=== PATIENT | female | born 1945 | race Caucasian/White ===

== ENCOUNTER 2016-02-17 13:16 | Emergency (ER) | payer OTHER ==
--- NOTE | 2016-02-17 13:55 | PDOC ---
History of Present Illness - History of Present Illness Initial Comments: 02/17/16 14:34 Patient is a 70 year old female with significant medical hx of asthma, ACS, Parkinsons, COPD, GERD, hypertension, and hyperlipidemia who is presenting to the ED s/p fall. Patient fell out of bed this morning secondary to dizziness. She reports that she is dizzy often; she characterizes her dizziness as if the room is spinning. The patient is also complains of lower back pain. Patient is a poor historian. PCP: Dr. Monica Jimenez <Kassidy Lozoya - Last Filed: 02/17/16 18:59> <Mauricio Agee - Last Filed: 02/17/16 19:04> - General Chief Complaint: Injury Stated Complaint: FALL Past History <Kassidy Lozoya - Last Filed: 02/17/16 18:59> - Past Medical History Anemia: Yes Asthma: Yes Cancer: No Cardiac Disorders: (hx of chest pain) CVA: No COPD: No CHF: No Dementia: No Diabetes: No GI Disorders: Yes (GERD) Disorders: Yes (incontinence) HTN: Yes Hypercholesterolemia: Yes Liver Disease: No Psychiatric Problems: Yes (BiPolar) Suicide Attempt (Hx): No Seizures: Yes Thyroid Disease: Yes (HYPO.) - Surgical History Abdominal Surgery: No Appendectomy: No Cardiac Surgery: No Cholecystectomy: No Lung Surgery: No Neurologic Surgery: No Orthopedic Surgery: No - Immunization History Td Vaccination: (unknown) Immunization Up to Date: No - Psycho/Social/Smoking Cessation Hx Anxiety: No Suicidal Ideation: No Smoking Status: No Smoking History: Unknown if ever smoked Years of Tobacco Use: 0 Have you smoked in the past 12 months: No Number of Cigarettes Smoked Daily: 0 Cigars Per Day: 0 Hx Alcohol Use: No Drug/Substance Use Hx: No Substance Use Type: None Hx Substance Use Treatment: No <Mauricio Agee - Last Filed: 02/17/16 19:04> - Past Medical History Allergies/Adverse Reactions: Allergies Allergy/AdvReac Type Severity Reaction Status Date / Time morphine Allergy Unknown Verified 01/28/16 13:00 Penicillins Allergy Unknown Verified 01/28/16 13:00 chocolate Allergy Unknown Uncoded 01/28/16 13:00 Home Medications: Ambulatory Orders Alendronate Sodium [Binosto] 70 mg PO MO 10/26/15 Aripiprazole [Abilify] 5 mg PO DAILY 10/26/15 Aspirin [Ecotrin] 81 mg PO DAILY 10/26/15 Atorvastatin Ca [Lipitor] 20 mg PO HS 10/26/15 Budesonide [Pulmicort Flexhaler] 180 mcg IH BID 10/26/15 Budesonide/Formeterol Fumarate [SYMBICORT 160/4.5mcg -] 1 inh PO BID 10/26/15 Carbidopa/Levodopa 25/250 [Sinemet 25/250 -] 1 each PO TID 10/26/15 Clopidogrel Bisulfate [Clopidogrel] 75 mg PO DAILY 10/26/15 Levothyroxine [Synthroid -] 25 mcg PO DAILY 10/26/15 Metoprolol Succinate [Toprol XL -] 25 mg PO DAILY 10/26/15 Montelukast Na [Singulair -] 10 mg PO HS 10/26/15 Solifenacin Succinate [Vesicare -] 10 mg PO DAILY 10/26/15 Gemfibrozil 600 mg PO BID 12/31/15 Loratadine [Claritin] 10 mg PO DAILY 12/31/15 Lorazepam [Ativan] 0.25 mg PO BID 12/31/15 Meclizine HCl 12.5 mg PO BID 12/31/15 Olanzapine [Zyprexa] 5 mg PO HS 12/31/15 Omeprazole 20 mg PO DAILY 12/31/15 Phenylephrine HCl/Acetaminophn [Mapap Sinus Caplet] 1 each PO BID 12/31/15 Risperidone [Risperdal] 8 mg PO HS 12/31/15 Pantoprazole Sodium [Protonix -] 20 mg PO DAILY 01/21/16 Albuterol Sulfate Inhaler - [Ventolin HFA Inhaler -] 2 inh PO Q4H 01/28/16 Citalopram Hydrobromide [Citalopram HBr] 10 mg PO DAILY 01/28/16 Lidocaine 5% Patch [Lidoderm -] 1 patch TP DAILY 01/28/16 Risperidone [Risperdal -] 2 mg PO AM 01/28/16 Review of Systems - Review of Systems Comments:: 02/17/16 14:49 CONSTITUTIONAL: Absent: fever, chills, diaphoresis, generalized weakness, malaise, loss of appetite HEENT: Absent: rhinorrhea, nasal congestion, throat pain, throat swelling, difficulty swallowing, mouth swelling, ear pain, eye pain, visual changes CARDIOVASCULAR: Absent: chest pain, syncope, palpitations, irregular heart rate, lightheadedness , peripheral edema RESPIRATORY: Absent: cough, shortness of breath, dyspnea with exertion, orthopnea, wheezing, stridor, hemoptysis GASTROINTESTINAL: Absent: abdominal pain, abdominal distension, nausea, vomiting, diarrhea, constipation, melena, hematochezia GENITOURINARY: Absent: dysuria, frequency, urgency, hesitancy, hematuria, flank pain, genital pain MUSCULOSKELETAL: Present: lower back pain Absent: myalgia, arthralgia, joint swelling SKIN: Absent: rash, itching, pallor HEMATOLOGIC/IMMUNOLOGIC: Absent: easy bleeding, easy bruising, lymphadenopathy, frequent infections ENDOCRINE: Absent: unexplained weight gain, unexplained weight loss, heat intolerance, cold intolerance NEUROLOGIC: Present: dizziness Absent: headache, focal weakness or paresthesia, unsteady gait, seizure, mental status changes, bladder or bowel incontinence. PSYCHIATRIC: Absent: anxiety, depression, suicidal or homicidal ideation, hallucinations <Kassidy Lozoya - Last Filed: 02/17/16 18:59> *Physical Exam - Vital Signs Last Vital Signs Temp Pulse Resp BP Pulse Ox 98.6 F 58 L 18 126/52 98 02/17/16 13:53 02/17/16 13:53 02/17/16 13:53 02/17/16 13:53 02/17/16 13:53 - Physical Exam Comments: 02/17/16 14:50 GENERAL: Well developed, well nourished. Awake and alert. No acute distress. HEENT: Normocephalic, atraumatic. PERRLA, EOMI. No conjunctival pallor. Sclera are non- icteric. Moist mucous membranes. Oropharynx is clear. NECK: Supple. Full ROM. No JVD. Carotid pulses 2+ and symmetric, without bruits. No thyromegaly. No lymphadenopathy. CARDIOVASCULAR: Regular rate and rhythm. No murmurs, rubs, or gallops. Distal pulses are 2+ and symmetric. PULMONARY: No evidence of respiratory distress. Lungs clear to auscultation bilaterally. No wheezing, rales or rhonchi. ABDOMINAL: Soft. Non-tender. Non-distended. No rebound or guarding. No organomegaly. Normoactive bowel sounds. MUSCULOSKELETAL: Lumbar tenderness. Normal range of motion at all joints. No bony deformities. No CVA tenderness. EXTREMITIES: No cyanosis. No clubbing. No edema. No calf tenderness. SKIN: Warm and dry. Normal capillary refill. No rashes. No jaundice. NEUROLOGICAL: Alert, awake, appropriate. No nystagmus. Cranial nerves 2-12 intact. Normal speech. Gait is normal without ataxia. PSYCHIATRIC: Cooperative. Good eye contact. Appropriate mood and affect. <Kassidy Lozoya - Last Filed: 02/17/16 18:59> ED Treatment Course - LABORATORY CBC & Chemistry Diagram: 02/17/16 15:00 02/17/16 15:00 - RADIOLOGY Radiograph Interpretation: 02/17/16 19:00 Jack Spinner: ([email or web address]) Begin of Report Content Referring Physician: Mauricio Agee Patient Name: Stoney Rodriguez THIS IS A PRELIMINARY REPORT FROM [facility]. EXAM: LUMBAR SPINE CT W/O CONTRAST DATE OF SERVICE: 2016-02-17 17:22:10.0 IMAGES: 292 INDICATION: Fall. Back pain. COMPARISON: None Mild rightward curvature of the lumbar spine. No acute lumbar vertebral compression fracture seen. Mild facet enlargement at L4-5 and L5-S1. No acute facet fracture or malalignment. Transverse and spinous processes are intact. A broad disc protrusion at L4-5 superimposed on facet and ligamentous enlargement producing moderate central spinal stenosis. Mild disc bulging at T12-L1 and L1-2. THIS DOCUMENT HAS BEEN ELECTRONICALLY SIGNED Wanda Palmer MD 02/17/2016 17:52 EST M.D. Please call [facility] [phone] ([phone]) with questions. End of Report Content Jack Spinner: ([email or web address]) Begin of Report Content Referring Physician: Mauricio Agee Patient Name: Stoney Rodriguez THIS IS A PRELIMINARY REPORT FROM [facility]. EXAM: HEAD CT WITHOUT CONTRAST DATE OF SERVICE: 2016-02-17 17:19:24.0 IMAGES: 66 INDICATION: Dizziness. Fell out of bed. COMPARISON: None FINDINGS: No acute skull fracture, intracranial hemorrhage or parenchymal edema demonstrated. There is no acute cortical infarction, intracranial mass, hydrocephalus or abnormal extraaxial collection. Air-fluid level present in the left maxillary sinus in addition to mucosal thickening and mild sinus wall thickening which may represent acute superimposed long-standing chronic sinusitis. If the patient has significant trauma to the left face, acute fracture not excluded. Recommend clinical correlation. If indicated, dedicated facial bone CT can be performed. THIS DOCUMENT HAS BEEN ELECTRONICALLY SIGNED Wanda Palmer MD 02/17/2016 17:49 EST [email or web address]. Please call [facility] [phone] ([phone]) with questions. End of Report Content <Kassidy Lozoya - Last Filed: 02/17/16 18:59> - LABORATORY CBC & Chemistry Diagram: 02/17/16 15:00 02/17/16 15:00 <Mauricio Agee - Last Filed: 02/17/16 19:04> *DC/Admit/Observation/Transfer - Attestations Scribe Attestion: 02/17/16 14:51 Documentation prepared by Kassidy Lozoya, acting as medical claims processor for Mauricio Agee MD. <Kassidy Lozoya - Last Filed: 02/17/16 18:59> - Discharge Dispostion Admit: No <Mauricio Agee - Last Filed: 02/17/16 19:04> Diagnosis at time of Disposition: Dizziness, Spinal stenosis, Chronic sinusitis - Discharge Dispostion Disposition: HOME Condition at time of disposition: Improved - Referrals Referrals: Monica Jimenez MD [Primary Care Provider] -
[2016-02-17 13:56] VITALS: TEMP 98.6; BMI 34.2
[2016-02-17] MEDS ORDERED: MECLIZINE HCL 25 MG TABLET (FP) PO ONE (14:00)
[2016-02-17] MEDS ORDERED: MECLIZINE HCL 25 MG TABLET (FP) ONE (14:41)
[2016-02-17 15:21] LABS: MCH 30.5 pg (25.7-33.7); MCHC 32.2 g/dl (32.0-36.0); MEAN CELL VOLUME 94.8 fl (80-96); MEAN PLT VOLUME 7.9 fl (7.5-11.1); PLATELET COUNT 275 K/MM3 (134-434); RDW 13.3 % (11.6-15.6); WHITE BLOOD COUNT 6.9 K/mm3 (4.0-10.0)
[2016-02-17 15:46] LABS: ALBUMIN 3.7 g/dl (3.4-5.0); ANION GAP 8 (8-16); BILIRUBIN,TOTAL 0.5 mg/dL (0.2-1.0); CALCIUM 8.7 mg/dL (8.5-10.1); CO2 24 mmol/L (21-32); CREATININE 0.8 mg/dL (0.55-1.02); GLUCOSE,RANDOM 99 mg/dL (74-106); SGPT/ALT 8 U/L (12-78); TOT PROT 6.3 g/dl (6.4-8.2)
[2016-02-17 15:47] LABS: ALK PHOS 98 U/L (45-117)
[2016-02-17 15:51] LABS: SGOT/AST 11 U/L (15-37)
[2016-02-17 16:26] LABS: PLATELET ESTIMATE ADEQUATE (NORMAL)
[2016-02-17 19:40] VITALS: BP 159/74; PULSE 61
--- NOTE | 2016-02-17 23:54 | EKG ---
Test Reason : Blood Pressure : / mmHG Vent. Rate : 051 BPM Atrial Rate : 051 BPM P-R Int : 212 ms QRS Dur : 094 ms QT Int : 508 ms P-R-T Axes : 037 027 013 degrees QTc Int : 468 ms SINUS BRADYCARDIA WITH 1ST DEGREE A-V BLOCK SEPTAL INFARCT (CITED ON OR BEFORE 28-JAN-2016) ABNORMAL ECG WHEN COMPARED WITH ECG OF 28-JAN-2016 13:06, QUESTIONABLE CHANGE IN INITIAL FORCES OF ANTEROSEPTAL LEADS NONSPECIFIC T WAVE ABNORMALITY NOW EVIDENT IN INFERIOR LEADS Confirmed by SKYLER LAGUERRE MD ([id number]) on 02/17/2016 11:53:55 PM Referred By: Confirmed By:SKYLER LAGUERRE MD
== END 2016-02-17 19:43 ==
LOC: JER 13:16
DX: R42 Dizziness and giddiness (principal); M48.00 Spinal stenosis, site unspecified; J32.8 Other chronic sinusitis; I25.10 Atherosclerotic heart disease of native coronary artery without angina pectoris; I10 Essential (primary) hypertension; E78.00 Pure hypercholesterolemia, unspecified; J45.909 Unspecified asthma, uncomplicated; G30.8 Other Alzheimer's disease; F02.80 Dementia in other diseases classified elsewhere, unspecified severity, without behavioral disturbance, psychotic disturbance, mood disturbance, and anxiety; J44.9 Chronic obstructive pulmonary disease, unspecified; W06.XXXA Fall from bed, initial encounter; Y93.89 Activity, other specified; Y92.122 Bedroom in nursing home as the place of occurrence of the external cause
CPT/HCPCS: 36415; 70450-TC; 72131-TC; 80053; 85025; 93005; 93010; 99282-25

== ENCOUNTER 2016-04-19 09:38 | Emergency (ER) | payer OTHER ==
[2016-04-19 09:55] VITALS: PULSE 53; TEMP 97.3; BMI 31.4
--- NOTE | 2016-04-19 10:11 | PDOC ---
History of Present Illness - General History Source: Patient, Old Records Exam Limitations: No Limitations - History of Present Illness Initial Comments: 04/19/16 10:57 The patient is a 71 year old female with significant past medical history of hypertension, hyperlipidemia, bipolar disorder, Parkinson's, who presents to the ED complaining of two days of generalized buttock and back pain. She states she fell from bed 2 days ago while getting dressed and landed on her buttocks at the onset of her pain. No head trauma or LOC. Since then she has been experiencing persistent pain diffusely, worse with positional changes, worse with urination and defecation. The patient also endorses nausea and cough. No fever or chills. No numbness, tingling or focal weakness. Patient is a poor historian and provides limited history. The patient has been seen in this ED multiple times recently for falls. She had an unremarkable CT of the spine during her last visit 02/17/16. <Chayo Carcamo - Last Filed: 04/19/16 11:52> - General History Source: Patient, Old Records Exam Limitations: No Limitations <Rosa Morrell - Last Filed: 04/19/16 12:20> - General Chief Complaint: Pain Stated Complaint: FALL Time Seen by Provider: 04/19/16 10:07 Past History <Chayo Carcamo - Last Filed: 04/19/16 11:52> - Past Medical History Anemia: Yes Asthma: Yes Cancer: No Cardiac Disorders: (hx of chest pain) CVA: No COPD: No CHF: No Dementia: No Diabetes: No GI Disorders: Yes (GERD) Disorders: Yes (incontinence) HTN: Yes Hypercholesterolemia: Yes Liver Disease: No Psychiatric Problems: Yes (BiPolar) Suicide Attempt (Hx): No Seizures: Yes Thyroid Disease: Yes (HYPO.) - Surgical History Abdominal Surgery: No Appendectomy: No Cardiac Surgery: No Cholecystectomy: No Lung Surgery: No Neurologic Surgery: No Orthopedic Surgery: No - Immunization History Td Vaccination: (unknown) Immunization Up to Date: No - Psycho/Social/Smoking Cessation Hx Anxiety: No Suicidal Ideation: No Smoking Status: No Smoking History: Unknown if ever smoked Years of Tobacco Use: 0 Have you smoked in the past 12 months: No Number of Cigarettes Smoked Daily: 0 Cigars Per Day: 0 Information on smoking cessation initiated: No Hx Alcohol Use: No Drug/Substance Use Hx: No Substance Use Type: None Hx Substance Use Treatment: No <Rosa Morrell - Last Filed: 04/19/16 12:20> - Past Medical History Allergies/Adverse Reactions: Allergies Allergy/AdvReac Type Severity Reaction Status Date / Time morphine Allergy Unknown Verified 04/19/16 09:55 Penicillins Allergy Unknown Verified 04/19/16 09:55 chocolate Allergy Unknown Uncoded 04/19/16 09:55 Home Medications: Ambulatory Orders Albuterol Sulfate [Proair Respiclick] 2 puff IH BID 04/19/16 Alendronate Na [Fosamax] 70 mg PO Q7D 04/19/16 Aripiprazole [Abilify -] 5 mg PO DAILY 04/19/16 Aspirin [ASA -] 81 mg PO DAILY 04/19/16 Atorvastatin Ca [Lipitor] 20 mg PO HS 04/19/16 Budesonide/Formeterol Fumarate [SYMBICORT 160/4.5mcg -] 2 inh PO BID 04/19/16 Carbidopa/Levodopa [Carbidopa-Levodopa 25-250 Tab] 1 each PO TID 04/19/16 Citalopram Hydrobromide [Citalopram HBr] 10 mg PO DAILY 04/19/16 Clopidogrel Bisulfate [Plavix -] 75 mg PO DAILY 04/19/16 Gemfibrozil [Lopid] 600 mg PO BID 04/19/16 Ipratropium 0.02% Nebulizer [Atrovent] 1 neb NEB BID 04/19/16 Levothyroxine [Synthroid -] 25 mcg PO DAILY 04/19/16 Lidocaine 5% Patch [Lidoderm Patch -] 1 patch TP DAILY 04/19/16 Meclizine HCl 12.5 mg PO BID 04/19/16 Metoprolol Tartrate [Lopressor -] 25 mg PO DAILY 04/19/16 Mometasone/Formoterol [Dulera 100 Mcg/5 Mcg Inhaler] 2 inh IH BID 04/19/16 Montelukast Na [Singulair -] 10 mg PO HS 04/19/16 Naproxen [Naprosyn -] 500 mg PO BID 04/19/16 Omeprazole 20 mg PO DAILY 04/19/16 Pantoprazole Sodium [Protonix -] 20 mg PO DAILY 04/19/16 Risperidone [Risperdal] 2 mg PO DAILY 04/19/16 Solifenacin Succinate [Vesicare -] 10 mg PO DAILY 04/19/16 Review of Systems - Review of Systems Able to Perform ROS?: Yes Comments:: 04/19/16 11:01 GENERAL/CONSTITUTIONAL: No fever or chills. No weakness. HEAD, EYES, EARS, NOSE AND THROAT: No change in vision. No ear pain or discharge. No sore throat. CARDIOVASCULAR: Cough. No chest pain or shortness of breath. RESPIRATORY: No cough, wheezing, or hemoptysis. GASTROINTESTINAL: Nausea. No abdominal pain, vomiting, diarrhea or constipation. GENITOURINARY: No dysuria, frequency, or change in urination. MUSCULOSKELETAL: Diffuse back pain. No focal joint or muscle swelling or pain. No neck pain. SKIN: No rash NEUROLOGIC: No headache, vertigo, loss of consciousness, or change in strength/ sensation. ENDOCRINE: No increased thirst. No abnormal weight change. HEMATOLOGIC/LYMPHATIC: No anemia, easy bleeding, or history of blood clots. ALLERGIC/IMMUNOLOGIC: No hives or skin allergy. <Chayo Carcamo - Last Filed: 04/19/16 11:52> *Physical Exam - Vital Signs Last Vital Signs Temp Pulse Resp BP Pulse Ox 97.3 F L 53 L 16 112/43 97 04/19/16 09:52 04/19/16 09:52 04/19/16 09:52 04/19/16 09:52 04/19/16 09:52 - Physical Exam Comments: 04/19/16 11:03 GENERAL: Awake, alert, and fully oriented, in no acute distress HEAD: No signs of trauma EYES: PERRLA, EOMI, sclera anicteric, conjunctiva clear ENT: Auricles normal inspection, hearing grossly normal, nares patent, oropharynx clear without exudates. Moist mucosa NECK: Normal ROM, supple, no lymphadenopathy, JVD, or masses LUNGS: Breath sounds equal, clear to auscultation bilaterally. No wheezes, and no crackles HEART: Regular rate and rhythm, normal S1 and S2, no murmurs, rubs or gallops ABDOMEN: Soft, nontender, normoactive bowel sounds. No guarding, no rebound. No masses BACK: Diffuse tenderness to lower thoracic and lumbar spine. No focal bony tenderness or deformity. EXTREMITIES: Normal range of motion, no edema. No clubbing or cyanosis. No cords, erythema, or tenderness NEUROLOGICAL: Cranial nerves II through XII grossly intact. Normal speech, normal gait SKIN: Warm, Dry, normal turgor, no rashes or lesions noted. <Chayo Carcamo - Last Filed: 04/19/16 11:52> - Vital Signs Last Vital Signs Temp Pulse Resp BP Pulse Ox 97.3 F L 53 L 16 112/43 97 04/19/16 09:52 04/19/16 09:52 04/19/16 09:52 04/19/16 09:52 04/19/16 09:52 <Rosa Morrell - Last Filed: 04/19/16 12:20> ED Treatment Course - RADIOLOGY Radiograph Interpretation: 04/19/16 11:52 Lumbar spine x-ray, read and interpreted by Dr. Anne, shows degenerative changes. Slight subluxation of L5 on S1. 04/19/16 11:53 Thoracic spine x-ray, read and interpreted Dr. Anne, shows no acute pathology. <Chayo Carcamo - Last Filed: 04/19/16 11:52> Medical Decision Making - Medical Decision Making 04/19/16 11:15 71-year-old female from [place]way with history of chronic lower back pain and multiple falls, renal insufficiency, hypertension, Parkinson's disease, bipolar disorder who presents to the emergency Department with complaints of back pain status post fall from a seated position on a bed onto her buttocks 2 days ago. Differential diagnosis includes but is not limited to: Fracture, contusion, sprain. Plan: 1. Plain films of thoracic and lumbar spine 2. Pain management 3. Observe and reevaluate 04/19/16 12:11 Addendum: Plain films are negative for acute traumatic injury. Will discharge home. Follow-up with PCP. RTER is Sx persist, worsen or new Sx arise. <Rosa Morrell - Last Filed: 04/19/16 12:20> *DC/Admit/Observation/Transfer - Attestations Scribe Attestion: 04/19/16 11:03 Documentation prepared by Chayo Carcamo, acting as center medical director for Rosa Morrell MD. <Chayo Carcamo - Last Filed: 04/19/16 11:52> - Discharge Dispostion Admit: No - Attestations Physician Attestion: 04/19/16 12:14 I, Dr. Rosa Morrell, attest that the scribes documentation that appears above has been prepared under my direction and personally reviewed by me in its entirety. I confirmed that the note above accurately reflects all work, treatment, procedures, and medical decision-making performed by me. <Rosa Morrell - Last Filed: 04/19/16 12:20> Diagnosis at time of Disposition: Low back pain, Contusion of back, Fall - Discharge Dispostion Disposition: HOME Condition at time of disposition: Stable - Referrals Referrals: Monica Jimenez MD [Primary Care Provider] - - Patient Instructions Printed Discharge Instructions: DI for Contusion Additional Instructions: Your x-rays show that you have no acute traumatic injury from your fall. Please take Tylenol or Motrin as needed for pain. Follow-up with her primary care physician within one week and return to the emergency department if your symptoms persist, worsen, or new symptoms arise.
[2016-04-19] MEDS ORDERED: IBUPROFEN 400 MG TABLET (FP) PO ONE ×2 (10:34→10:49)
[2016-04-19 12:22] VITALS: BP 114/79
== END 2016-04-19 12:57 | disposition home or self-care (01) ==
LOC: JER 09:38
DX: S30.0XXA Contusion of lower back and pelvis, initial encounter (principal); W06.XXXA Fall from bed, initial encounter; Y93.89 Activity, other specified; Y92.003 Bedroom of unspecified non-institutional (private) residence as the place of occurrence of the external cause; M54.5 Low back pain; J45.909 Unspecified asthma, uncomplicated; K21.9 Gastro-esophageal reflux disease without esophagitis; I10 Essential (primary) hypertension; E78.00 Pure hypercholesterolemia, unspecified; E03.9 Hypothyroidism, unspecified; F31.9 Bipolar disorder, unspecified
CPT/HCPCS: 72070-TC; 72100-TC; 99282-25

== ENCOUNTER 2016-05-12 11:31 | Inpatient (IN) | payer OTHER ==
[2016-05-12] MEDS ORDERED: ONDANSETRON 4 MG/2 ML VIAL IVPB ONE (12:07)
[2016-05-12] MEDS ORDERED: SODIUM CHLORIDE 500 ML IV STA ×2 (12:07→13:31)
[2016-05-12] MEDS ORDERED: ONDANSETRON 4 MG/2 ML VIAL ONE (12:23)
--- NOTE | 2016-05-12 12:23 | PDOC ---
History of Present Illness <Liam Villela - Last Filed: 05/12/16 16:26> - General History Source: Patient Exam Limitations: No Limitations - History of Present Illness Initial Comments: 05/12/16 11:45 The patient is a 71-year-old woman, from [facility], with a significant past medical history of anemia, hypertension, hypercholesterolemia, hypothyroidism, gastrointestinal reflux disease, Parkinson 's disease, bipolar disorder, who presents to the emergency department via EMS for further evaluation of generalized weakness for the past 4 days. No fall, head injury, trauma, no loss of consciousness. She states that she feels generally weak with associated intermittent symptoms of dizziness, described as room-spinning. She states that her dizziness is mildly alleviated when lying down but is still present. No palpitations, visual changes, headaches, chest pain, leg pain/swelling. No fever, chills, weakness, tingling sensations to her extremities. No cough, shortness of breath She also reports feeling generalized abdominal pain with associated black appearing diarrhea since yesterday. She denies taking iron supplements. She is on Plavix and Aspirin. No nausea, vomiting. No urinary complaints. Allergies: Morphine. Penicillin. Chocolate. Past Surgical History: None reported Social History: No tobacco, ETOH and recreational drug use. Primary Care Physician: Dr. Monica Jimenez <Sushma Cote - Last Filed: 05/12/16 16:41> - General Chief Complaint: Lightheaded Stated Complaint: DIZZINESS Time Seen by Provider: 05/12/16 11:45 Past History - Past Medical History Anemia: Yes Asthma: Yes Cancer: No Cardiac Disorders: (hx of chest pain) CVA: No COPD: Yes (PT STATED) CHF: No Dementia: No Diabetes: No GI Disorders: Yes (GERD) Disorders: Yes (incontinence) HTN: Yes Hypercholesterolemia: Yes Liver Disease: No Psychiatric Problems: Yes (BiPolar) Suicide Attempt (Hx): No Seizures: Yes Thyroid Disease: Yes (HYPO.) - Surgical History Abdominal Surgery: No Appendectomy: No Cardiac Surgery: No Cholecystectomy: No Lung Surgery: No Neurologic Surgery: No Orthopedic Surgery: No - Immunization History Td Vaccination: (unknown) Immunization Up to Date: No - Psycho/Social/Smoking Cessation Hx Anxiety: No Suicidal Ideation: No Smoking Status: No Smoking History: Never smoked Years of Tobacco Use: 0 Have you smoked in the past 12 months: No Number of Cigarettes Smoked Daily: 0 Cigars Per Day: 0 Information on smoking cessation initiated: No Hx Alcohol Use: No Drug/Substance Use Hx: No Substance Use Type: None Hx Substance Use Treatment: No <Liam Villela - Last Filed: 05/12/16 16:26> <Sushma Cote - Last Filed: 05/12/16 16:41> - Past Medical History Allergies/Adverse Reactions: Allergies Allergy/AdvReac Type Severity Reaction Status Date / Time morphine Allergy Unknown Verified 05/12/16 11:41 Penicillins Allergy Unknown Verified 05/12/16 11:41 chocolate Allergy Unknown Uncoded 05/12/16 11:41 Home Medications: Ambulatory Orders Albuterol Sulfate [Proair Respiclick] 2 puff IH BID 04/19/16 Alendronate Na [Fosamax] 70 mg PO Q7D 04/19/16 Aripiprazole [Abilify -] 5 mg PO DAILY 04/19/16 Aspirin [ASA -] 81 mg PO DAILY 04/19/16 Atorvastatin Ca [Lipitor] 20 mg PO HS 04/19/16 Budesonide/Formeterol Fumarate [SYMBICORT 160/4.5mcg -] 2 inh PO BID 04/19/16 Carbidopa/Levodopa [Carbidopa-Levodopa 25-250 Tab] 1 each PO TID 04/19/16 Citalopram Hydrobromide [Citalopram HBr] 10 mg PO DAILY 04/19/16 Clopidogrel Bisulfate [Plavix -] 75 mg PO DAILY 04/19/16 Gemfibrozil [Lopid] 600 mg PO BID 04/19/16 Ipratropium 0.02% Nebulizer [Atrovent] 1 neb NEB BID 04/19/16 Levothyroxine [Synthroid -] 25 mcg PO DAILY 04/19/16 Lidocaine 5% Patch [Lidoderm Patch -] 1 patch TP DAILY 04/19/16 Meclizine HCl 12.5 mg PO BID 04/19/16 Metoprolol Tartrate [Lopressor -] 25 mg PO DAILY 04/19/16 Mometasone/Formoterol [Dulera 100 Mcg/5 Mcg Inhaler] 2 inh IH BID 04/19/16 Montelukast Na [Singulair -] 10 mg PO HS 04/19/16 Naproxen [Naprosyn -] 500 mg PO BID 04/19/16 Omeprazole 20 mg PO DAILY 04/19/16 Risperidone [Risperdal] 2 mg PO DAILY 04/19/16 Solifenacin Succinate [Vesicare -] 10 mg PO DAILY 04/19/16 Budesonide [Pulmicort Flexhaler] 180 mcg PO BID 05/12/16 Lorazepam [Ativan] 0.25 mg PO BID 05/12/16 Olanzapine [Zyprexa] 5 mg PO DAILY 05/12/16 Risperidone [Risperdal] 8 mg PO HS 05/12/16 Review of Systems - Review of Systems Able to Perform ROS?: Yes Comments:: 05/12/16 11:45 CONSTITUTIONAL: Reported: Generalized weakness. No reported: Fever, Chills, Diaphoresis, Malaise , Loss of Appetite HEENT: No reported: Rhinorrhea, Nasal Congestion, Throat Pain, Throat Swelling, Difficulty Swallowing, Mouth Swelling, Ear Pain, Eye Pain, Visual Changes CARDIOVASCULAR: No reported: Chest Pain, Syncope, Palpitations, Irregular Heart Rate, Lightheadedness, Peripheral Edema RESPIRATORY: No reported: Cough, Shortness of Breath, SOB with Exertion, Orthopnea, Wheezing , Stridor, Hemoptysis GASTROINTESTINAL: Reported: Abdominal Pain. Diarrhea. Dark appearing stool. No reported: Abdominal Distension, Nausea, Vomiting, Constipation, Hematochezia GENITOURINARY: No reported: Dysuria, Frequency, Urgency, Hesitancy, Flank Pain, Genital Pain MUSCULOSKELETAL: No reported: Myalgia, Arthralgia, Joint Swelling, Back pain, Neck Pain SKIN: No reported: Rash, Itching, Pallor HEMEATOLOGIC/IMMUNOLOGIC: No reported: Easy Bleeding, Easy Bruising, Lymphadenopathy, Frequent infections ENDOCRINE: No reported: Unexplained Weight Gain, Unexplained Weight Loss, Heat Intolerance , Cold Intolerance NEUROLOGIC: Reported: Dizziness. No reported: Headache, Focal Weakness, Paresthesias, Vertigo, Unsteady Gait, Seizure, Mental Status Changes, Incontinence PSYCHIATRIC: Reported: History of bipolar disorder and anxiety No reported: Depression. <Sushma Cote - Last Filed: 05/12/16 16:41> *Physical Exam - Vital Signs Last Vital Signs Temp Pulse Resp BP Pulse Ox 98.1 F 56 L 16 101/40 88 L 05/12/16 11:52 05/12/16 11:52 05/12/16 11:52 05/12/16 11:52 05/12/16 11:52 <Liam Villela - Last Filed: 05/12/16 16:26> - Vital Signs Last Vital Signs Temp Pulse Resp BP Pulse Ox 98.1 F 56 L 16 101/40 94 L 05/12/16 11:52 05/12/16 11:52 05/12/16 11:52 05/12/16 11:52 05/12/16 12:35 - Physical Exam Comments: 05/12/16 11:45 GENERAL: The patient is awake, alert, and fully oriented, Nontoxic - in no acute distress. HEAD: Normocephalic, atraumatic. EYES: extraocular movements intact, sclera anicteric, conjunctiva clear. ENT: Normal voice, Moist mucous membranes. NECK: Normal range of motion, supple LUNGS: Breath sounds equal, clear to auscultation bilaterally. No wheezes, no rhonchi, no rales. HEART: Regular rate and rhythm, without murmur, rub or gallop. ABDOMEN: mild abd tenderness, normoactive bowel sounds. RECTAL: Stool was dark brown. guaiac negative EXTREMITIES: Normal range of motion, no edema. No clubbing or cyanosis. No cords , erythema, or tenderness. NEUROLOGICAL: No facial assymetry, Normal speech, Normal finger to nose/rapid alternating movements, strength intact and symmetric, unstalbe/weak gait. PSYCH: Flat affect. SKIN: Warm, Dry, normal turgor. <Sushma Cote - Last Filed: 05/12/16 16:41> Heart Score/ECG Review - ECG Impressions Comment:: 05/12/16 12:22 Twelve-lead EKG was performed and reviewed by me. There is normal sinus rhythm with a rate of 55 The axis is normal. First degree AV block There is abnormal R wave progression There are no ST or T wave abnormalities. <Liam Villela - Last Filed: 05/12/16 16:26> ED Treatment Course - LABORATORY CBC & Chemistry Diagram: 05/12/16 12:10 05/12/16 12:10 <Liam Villela - Last Filed: 05/12/16 16:26> - LABORATORY CBC & Chemistry Diagram: 05/12/16 12:10 05/12/16 12:10 - ADDITIONAL ORDERS Additional order review: Laboratory Results 05/12/16 05/12/16 05/12/16 13:01 12:15 12:10 INR Sodium Potassium Chloride Carbon Dioxide Anion Gap BUN Creatinine Creat Clearance w eGFR Random Glucose Calcium Total Bilirubin AST ALT Alkaline Phosphatase Total Protein Albumin TSH Stool Occult Blood Negative Blood Type O POSITIVE O POSITIVE Antibody Screen Negative 05/12/16 05/12/16 12:10 12:10 INR 1.12 Sodium 146 H Potassium 4.9 Chloride 116 H Carbon Dioxide 18 L D Anion Gap 12 BUN 29 H D Creatinine 1.2 H D Creat Clearance w eGFR 44.41 Random Glucose 78 D Calcium 8.4 L Total Bilirubin 0.8 D AST 11 L ALT < 6 L D Alkaline Phosphatase 89 Total Protein 5.9 L Albumin 3.7 TSH 1.81 D Stool Occult Blood Blood Type Antibody Screen 05/12/16 12:10 RBC 3.25 L MCV 97.7 H MCHC 33.2 RDW 13.8 MPV 8.8 D Neutrophils % 69.8 Lymphocytes % 17.8 D Monocytes % 7.9 Eosinophils % 3.8 D Basophils % 0.7 - RADIOLOGY Radiograph Interpretation: 05/12/16 15:10 EXAM: CT/HEAD CT WITHOUT CONTRAST IMPRESSION: Since 02/17/2016, there remains moderate atrophy, ventricular dilatation and mild chronic microvascular ischemic changes. No mass lesion, gross acute infarct or intracranial hemorrhage is seen. There is no shift of the midline structures. The calvarium is intact. Calcification of the cavernous carotid arteries are present. Mild mucosal thickening in included portion of the left maxillary antrum. EXAM: RAD/CHEST X-RAY PORTABLE IMPRESSION: A single view the chest reveals little change since 01/28/2016. There are clear lungs, normal mediastinum and an old left clavicular fracture. The angles are sharp and the soft tissues are intact with prominent arm soft tissues. An acute process is not seen. - Medications Given in the ED: ED Medications Discontinued Medications Generic Name Dose Route Start Last Admin Trade Name Freq PRN Reason Stop Dose Admin Sodium Chloride 500 mls @ 500 mls/hr 05/12/16 12:07 05/12/16 12:31 Normal Saline - IV 05/12/16 13:06 500 mls/hr ASDIR STA Administration Ondansetron HCl 4 mg 05/12/16 12:07 05/12/16 12:31 Zofran Injection IVPB 05/12/16 12:08 4 mg ONCE ONE Administration <Sushma Cote - Last Filed: 05/12/16 16:41> Medical Decision Making - Medical Decision Making 05/12/16 12:23 71y F hx of anxiety, bipolar disorder, seizures, copd, chf, htn, hl, sent to the ED for evaluation of diarrhea that is dark in color x 1 week, associated with several days of feeling ligheheaded/room spinning and a few days of diarrhea and RLQ pain. On exam the pt is in no acute distress, but has a flat affect - stool is dark brown, guaiac pending. pt abd was soft notender. differential includs GIB/Anemia, vertigo, colitis, metabolic dernagement, arrythmia will obtain blodo work, stool guaiac will treat pt with fluids, antiemetic will likely obtain ct abdomen and head will reassess A portion of this note was documented by scribe services under my direction. I have reviewed the details of the note, within reason, and agree with the documentation with the following case summary and management plan written by me 05/12/16 16:07 pts labs reviewed mild anemia noted relative to previous labs - guaiac negative pts electrlytes reviewed, likely dehydration pts ct head negative pts abd cat scan is negative for acute pathology <Liam Villela - Last Filed: 05/12/16 16:26> - Medical Decision Making 05/12/16 16:[address] Alvarado. Case was discussed. <Sushma Cote - Last Filed: 05/12/16 16:41> *DC/Admit/Observation/Transfer - Discharge Dispostion Admit: Yes <Liam Villela - Last Filed: 05/12/16 16:26> <Sushma Cote - Last Filed: 05/12/16 16:41> Diagnosis at time of Disposition: Dehydration Diarrhea Qualifiers: Diarrhea type: unspecified type Qualified Code(s): R19.7 - Diarrhea, unspecified
[2016-05-12 12:45] LABS: BASOPHIL 0.7 % (0-2.0); EOSINOPHIL 3.8 % (0-4.5); MCH 32.4 pg (25.7-33.7); MCHC 33.2 g/dl (32.0-36.0); MEAN CELL VOLUME 97.7 fl (80-96); MEAN PLT VOLUME 8.8 fl (7.5-11.1); NEUTROPHILS 69.8 % (42.8-82.8); PLATELET COUNT 214 K/MM3 (134-434); RDW 13.8 % (11.6-15.6)
[2016-05-12 12:56] LABS: INR 1.12 (0.82-1.09); PROTHROMBIN TIME (PATIENT) 12.4 SEC (9.98-11.88)
[2016-05-12 13:14] LABS: ALBUMIN 3.7 g/dl (3.4-5.0); ANION GAP 12 (8-16); BILIRUBIN,TOTAL 0.8 mg/dL (0.2-1.0); CALCIUM 8.4 mg/dL (8.5-10.1); CO2 18 mmol/L (21-32); CREATININE 1.2 mg/dL (0.55-1.02); GLUCOSE,RANDOM 78 mg/dL (74-106); SGOT/AST 11 U/L (15-37); SGPT/ALT < 6 U/L (12-78); TOT PROT 5.9 g/dl (6.4-8.2)
[2016-05-12 13:22] LABS: ALK PHOS 89 U/L (45-117); THYROID STIMULATING HORMONE 1.81 uIU/ml (0.358-3.74)
[2016-05-12 18:36] LABS: URINE APPEARANCE CLEAR; URINE BILIRUBIN NEGATIVE (NEGATIVE); URINE BLOOD NEGATIVE (NEGATIVE); URINE COLOR STRAW; URINE GLUCOSE (UA) NEGATIVE (NEGATIVE); URINE KETONE NEGATIVE (NEGATIVE); URINE NITRITE NEGATIVE (NEGATIVE); URINE PROTEIN NEGATIVE (NEGATIVE); URINE UROBILINOGEN NEGATIVE E.U./dl (0.2-1.0)
[2016-05-12 18:45] LABS: URINE LEUK ESTERASE 3+ (NEGATIVE)
[2016-05-12 18:48] LABS: URINE BACTERIA RARE /hpf (NONE SEEN); URINE RBC 8 /hpf (0-3); URINE WBC 40 /hpf (3-5)
[2016-05-12 19:05] VITALS: BMI 31.1
--- NOTE | 2016-05-12 19:12 | HP ---
Admitting History and Physical - Primary Care Physician PCP: Rosangela Alvarado - Admission History of Present Illness: 71-year-old woman, from [facility], with a significant past medical history of anemia, hypertension, hypercholesterolemia, hypothyroidism, gastrointestinal reflux disease, Parkinson's disease, bipolar disorder, who presents to the emergency department via EMS for further evaluation of generalized weakness for the past 4 days. No fall, head injury, trauma, no loss of consciousness. She states that she feels generally weak with associated intermittent symptoms of dizziness, described as room-spinning. She states that her dizziness is mildly alleviated when lying down but is still present. no chest pain fever or chills - Past Medical History Cardiovascular: Yes: CAD, HTN, Hyperlipdemia Pulmonary: Yes: Asthma Renal/: Yes: Renal Inusuff Psych: Yes: Anxiety, Depression, Schizophrenia Endocrine: Yes: Hypothyroidism - Past Surgical History Past Surgical History: Yes: None - Smoking History Smoking history: Never smoked Have you smoked in the past 12 months: No Aproximately how many cigarettes per day: 0 - Alcohol/Substance Use Hx Alcohol Use: No History of Substance Use: reports: None - Social History ADL: Independent History of Recent Travel: No Home Medications - Allergies Allergies/Adverse Reactions: Allergies Allergy/AdvReac Type Severity Reaction Status Date / Time morphine Allergy Unknown Verified 05/12/16 11:41 Penicillins Allergy Unknown Verified 05/12/16 11:41 chocolate Allergy Unknown Uncoded 05/12/16 11:41 - Home Medications Home Medications: Ambulatory Orders Albuterol Sulfate [Proair Respiclick] 2 puff IH BID 04/19/16 Alendronate Na [Fosamax] 70 mg PO Q7D 04/19/16 Aripiprazole [Abilify -] 5 mg PO DAILY 04/19/16 Aspirin [ASA -] 81 mg PO DAILY 04/19/16 Atorvastatin Ca [Lipitor] 20 mg PO HS 04/19/16 Budesonide/Formeterol Fumarate [SYMBICORT 160/4.5mcg -] 2 inh PO BID 04/19/16 Carbidopa/Levodopa [Carbidopa-Levodopa 25-250 Tab] 1 each PO TID 04/19/16 Citalopram Hydrobromide [Citalopram HBr] 10 mg PO DAILY 04/19/16 Clopidogrel Bisulfate [Plavix -] 75 mg PO DAILY 04/19/16 Gemfibrozil [Lopid] 600 mg PO BID 04/19/16 Ipratropium 0.02% Nebulizer [Atrovent] 1 neb NEB BID 04/19/16 Levothyroxine [Synthroid -] 25 mcg PO DAILY 04/19/16 Lidocaine 5% Patch [Lidoderm Patch -] 1 patch TP DAILY 04/19/16 Meclizine HCl 12.5 mg PO BID 04/19/16 Metoprolol Tartrate [Lopressor -] 25 mg PO DAILY 04/19/16 Mometasone/Formoterol [Dulera 100 Mcg/5 Mcg Inhaler] 2 inh IH BID 04/19/16 Montelukast Na [Singulair -] 10 mg PO HS 04/19/16 Naproxen [Naprosyn -] 500 mg PO BID 04/19/16 Omeprazole 20 mg PO DAILY 04/19/16 Risperidone [Risperdal] 2 mg PO DAILY 04/19/16 Solifenacin Succinate [Vesicare -] 10 mg PO DAILY 04/19/16 Budesonide [Pulmicort Flexhaler] 180 mcg PO BID 05/12/16 Lorazepam [Ativan] 0.25 mg PO BID 05/12/16 Olanzapine [Zyprexa] 5 mg PO DAILY 05/12/16 Risperidone [Risperdal] 8 mg PO HS 05/12/16 Physical Examination Vital Signs: Vital Signs Temperature 97.7 F 05/12/16 18:47 Pulse Rate 48 L 05/12/16 18:47 Respiratory Rate 20 05/12/16 18:47 Blood Pressure 142/46 05/12/16 18:47 O2 Sat by Pulse Oximetry (%) 95 05/12/16 18:05 Constitutional: Yes: No Distress HENT: Yes: Atraumatic Neck: Yes: Supple Cardiovascular: Yes: Bradycardia Respiratory: Yes: Regular Gastrointestinal: Yes: Normal Bowel Sounds Extremities: Yes: WNL Problem List - Problems (1) Dehydration Assessment/Plan: ivf fu labs Code(s): E86.0 - DEHYDRATION (2) Diarrhea Assessment/Plan: chck stool if getting worse Code(s): R19.7 - DIARRHEA, UNSPECIFIED Qualifiers: Diarrhea type: unspecified type Qualified Code(s): R19.7 - Diarrhea, unspecified (3) Anxiety Assessment/Plan: on meds stable Code(s): F41.9 - ANXIETY DISORDER, UNSPECIFIED (4) Hyperlipidemia Assessment/Plan: on meds Code(s): E78.5 - HYPERLIPIDEMIA, UNSPECIFIED (5) Hypothyroid Assessment/Plan: on meds Code(s): E03.9 - HYPOTHYROIDISM, UNSPECIFIED (6) Parkinsonism Assessment/Plan: on meds stable Code(s): G20 - PARKINSON'S DISEASE (7) Urinary tract infection Assessment/Plan: on iv abx ucx sent Code(s): N39.0 - URINARY TRACT INFECTION, SITE NOT SPECIFIED Qualifiers: Urinary tract infection type: site unspecified Hematuria presence: without hematuria Qualified Code(s): N39.0 - Urinary tract infection, site not specified (8) Weakness Code(s): R53.1 - WEAKNESS (9) Bipolar disorder Assessment/Plan: on meds stable Code(s): F31.9 - BIPOLAR DISORDER, UNSPECIFIED Qualifiers: Active/Remission status: remission status unspecified Qualified Code(s) : F31.9 - Bipolar disorder, unspecified (10) CKD (chronic kidney disease) stage 3, GFR 30-59 ml/min Code(s): N18.3 - CHRONIC KIDNEY DISEASE, STAGE 3 (MODERATE) Assessment/Plan Laboratory Results - last 24 hr 05/12/16 05/12/16 05/12/16 12:10 12:10 12:10 WBC 8.0 RBC 3.25 L Hgb 10.5 L D Hct 31.7 L D MCV 97.7 H MCHC 33.2 RDW 13.8 Plt Count 214 D MPV 8.8 D Neutrophils % 69.8 Lymphocytes % 17.8 D Monocytes % 7.9 Eosinophils % 3.8 D Basophils % 0.7 INR 1.12 Sodium 146 H Potassium 4.9 Chloride 116 H Carbon Dioxide 18 L D Anion Gap 12 BUN 29 H D Creatinine 1.2 H D Creat Clearance w eGFR 44.41 Random Glucose 78 D Calcium 8.4 L Total Bilirubin 0.8 D AST 11 L ALT < 6 L D Alkaline Phosphatase 89 Total Protein 5.9 L Albumin 3.7 TSH 1.81 D Urine Color Urine Appearance Urine pH Ur Specific [place] Urine Protein Urine Glucose (UA) Urine Ketones Urine Blood Urine Nitrite Urine Bilirubin Urine Urobilinogen Ur Leukocyte Esterase Urine RBC Urine WBC Ur Epithelial Cells Urine Bacteria Stool Occult Blood Blood Type Antibody Screen 05/12/16 05/12/16 05/12/16 12:10 12:15 13:01 WBC RBC Hgb Hct MCV MCHC RDW Plt Count MPV Neutrophils % Lymphocytes % Monocytes % Eosinophils % Basophils % INR Sodium Potassium Chloride Carbon Dioxide Anion Gap BUN Creatinine Creat Clearance w eGFR Random Glucose Calcium Total Bilirubin AST ALT Alkaline Phosphatase Total Protein Albumin TSH Urine Color Urine Appearance Urine pH Ur Specific [place] Urine Protein Urine Glucose (UA) Urine Ketones Urine Blood Urine Nitrite Urine Bilirubin Urine Urobilinogen Ur Leukocyte Esterase Urine RBC Urine WBC Ur Epithelial Cells Urine Bacteria Stool Occult Blood Negative Blood Type O POSITIVE O POSITIVE Antibody Screen Negative 05/12/16 18:20 WBC RBC Hgb Hct MCV MCHC RDW Plt Count MPV Neutrophils % Lymphocytes % Monocytes % Eosinophils % Basophils % INR Sodium Potassium Chloride Carbon Dioxide Anion Gap BUN Creatinine Creat Clearance w eGFR Random Glucose Calcium Total Bilirubin AST ALT Alkaline Phosphatase Total Protein Albumin TSH Urine Color Straw Urine Appearance Clear Urine pH 5.0 Ur Specific [place] 1.039 H Urine Protein Negative Urine Glucose (UA) Negative Urine Ketones Negative Urine Blood Negative Urine Nitrite Negative Urine Bilirubin Negative Urine Urobilinogen Negative Ur Leukocyte Esterase 3+ H D Urine RBC 8 Urine WBC 40 Ur Epithelial Cells Rare Urine Bacteria Rare Stool Occult Blood Blood Type Antibody Screen Active Medications Generic Name Dose Route Start Last Admin Trade Name Freq PRN Reason Stop Dose Admin Aripiprazole 5 mg 05/13/16 10:00 Abilify PO DAILY [facility] Aspirin 81 mg 05/13/16 10:00 Asa - PO DAILY [facility] Atorvastatin Calcium 20 mg 05/12/16 22:00 Lipitor - PO HS [facility] Carbidopa/Levodopa 1 each 05/12/16 22:00 Sinemet 25/250 - PO TID [facility] Citalopram Hydrobromide 10 mg 05/13/16 10:00 Celexa - PO DAILY [facility] Clopidogrel Bisulfate 75 mg 05/13/16 10:00 Plavix - PO DAILY [facility] Gemfibrozil 600 mg 05/12/16 22:00 Lopid - PO BID [facility] Levofloxacin 100 mls @ 100 mls/hr 05/12/16 19:30 Levaquin 500 Mg Premixed Ivpb - IVPB DAILY [facility] Sodium Chloride 1,000 mls @ 75 mls/hr 05/12/16 19:30 Normal Saline - IV ASDIR [facility] Ipratropium [place] amp 05/12/16 22:00 Atrovent 0.02% Nebulizer - NEB BID [facility] Levothyroxine Sodium 25 mcg 05/13/16 10:00 Synthroid - PO DAILY [facility] Lidocaine 1 patch 05/13/16 10:00 Lidoderm Patch - TP DAILY [facility] Lorazepam 0.25 mg 05/12/16 22:00 Ativan - PO BID [facility] Montelukast Sodium 10 mg 05/12/16 22:00 Singulair - PO HS [facility] Non-Formulary Medication 2 puff 05/12/16 22:00 Albuterol Sulfate [Proair Respiclick] IH BID [facility] Non-Formulary Medication 180 mcg 05/12/16 22:00 Budesonide [Pulmicort Flexhaler] PO BID [facility]
[2016-05-12] MEDS ORDERED: PT OWN MED DRAWER 7, Y5N ONE (20:58)
[2016-05-12] MEDS: IPRATROPIUM BR 0.02% 0.5 MG/2.5 ML VIAL.NEB. NEB SCH (21:18)
[2016-05-12] MEDS ORDERED: PATIENT'S OWN MEDICATION (NON-FORMULARY) (Albuterol Sulfate [Proair Respiclick] 2 PUFF) IH SCH (22:00)
[2016-05-12] MEDS ORDERED: BUDESONIDE 180 MCG PO SCH (22:00)
[2016-05-12] MEDS ORDERED: LORazepam 0.5 MG TABLET PO PRN (22:00)
[2016-05-12] MEDS: LEVOFLOXACIN 500 MG IVPB 100 ML IVPB SCH (23:07)
[2016-05-12] MEDS: SODIUM CHLORIDE 1,000 ML IV SCH (23:08)
[2016-05-12] MEDS: GEMFIBROZIL 600 MG TABLET (FP) PO SCH (23:09)
[2016-05-12] MEDS: ATORVASTATIN CA 20 MG TABLET (FP) PO SCH (23:09)
[2016-05-12] MEDS: CARBIDOPA/LEVODOPA 25/250 TABLET (FP) PO SCH (23:10)
[2016-05-12] MEDS: MONTELUKAST NA 10 MG TABLET PO SCH (23:10)
[2016-05-13] MEDS: CARBIDOPA/LEVODOPA 25/250 TABLET (FP) PO SCH ×3 (06:21→22:57)
[2016-05-13] MEDS: LEVOTHYROXINE NA 25 MCG TABLET (FP) PO SCH (06:21)
[2016-05-13] MEDS: IPRATROPIUM BR 0.02% 0.5 MG/2.5 ML VIAL.NEB. NEB SCH ×2 (10:25→22:40)
[2016-05-13] MEDS: ASPIRIN 81 MG CHEWABLE TABLETS PO SCH (10:46)
[2016-05-13] MEDS: CLOPIDOGREL BISULFATE 75 MG TABLET (FP) PO SCH (10:46)
[2016-05-13] MEDS: CITALOPRAM HYDROBROMIDE 10 MG TABLET (FP) PO SCH (10:46)
[2016-05-13] MEDS: ARIPiprazole 5 MG TABLET (FP) PO SCH (10:47)
[2016-05-13] MEDS: LIDOCAINE 5% TOPICAL PATCH TP SCH (10:48)
[2016-05-13] MEDS: GEMFIBROZIL 600 MG TABLET (FP) PO SCH ×3 (11:30→17:55)
[2016-05-13] MEDS: LEVOFLOXACIN 500 MG IVPB 100 ML IVPB SCH (11:30)
[2016-05-13] MEDS ORDERED: MAG HYDROX/AL HYDROX/SIMETH 30 ML UNIT-DOSE CUP PO ONE (13:30)
[2016-05-13] MEDS ORDERED: MAG HYDROX/AL HYDROX/SIMETH 355 ML ORAL.SUSP PO ONE (13:30)
[2016-05-13] MEDS: SODIUM CHLORIDE 1,000 ML IV SCH ×2 (13:45→22:56)
--- NOTE | 2016-05-13 17:39 | EKG ---
Test Reason : Blood Pressure : / mmHG Vent. Rate : 055 BPM Atrial Rate : 055 BPM P-R Int : 222 ms QRS Dur : 088 ms QT Int : 430 ms P-R-T Axes : 037 004 055 degrees QTc Int : 411 ms SINUS BRADYCARDIA WITH 1ST DEGREE A-V BLOCK CANNOT RULE OUT ANTERIOR INFARCT (CITED ON OR BEFORE 28-JAN-2016) ABNORMAL ECG WHEN COMPARED WITH ECG OF 17-FEB-2016 14:50, T WAVE VARIATION Confirmed by YOUNG MCMAHAN MD ([id number]) on 05/13/2016 5:39:03 PM Referred By: Confirmed By:YOUNG MCMAHAN MD
--- NOTE | 2016-05-13 20:02 | PN ---
Progress Note, Physician - Current Medication List Current Medications: Active Medications Albuterol Sulfate (Ventolin Hfa Inhaler -) 2 puff IH Q12H PRN PRN Reason: SHORTNESS OF BREATH Aripiprazole (Abilify) 5 mg PO DAILY [facility] Last Admin: 05/13/16 10:47 Dose: 5 mg Aspirin (Asa -) 81 mg PO DAILY [facility] Last Admin: 05/13/16 10:46 Dose: 81 mg Atorvastatin Calcium (Lipitor -) 20 mg PO HS [facility] Last Admin: 05/12/16 23:09 Dose: 20 mg Carbidopa/Levodopa (Sinemet 25/250 -) 1 each PO TID [facility] Last Admin: 05/13/16 13:45 Dose: 1 each Citalopram Hydrobromide (Celexa -) 10 mg PO DAILY [facility] Last Admin: 05/13/16 10:46 Dose: 10 mg Clopidogrel Bisulfate (Plavix -) 75 mg PO DAILY [facility] Last Admin: 05/13/16 10:46 Dose: 75 mg Gemfibrozil (Lopid -) 600 mg PO BIDAC [facility] Last Admin: 05/13/16 17:55 Dose: 600 mg Levofloxacin (Levaquin 500 Mg Premixed Ivpb -) 100 mls @ 100 mls/hr IVPB DAILY [facility] Last Admin: 05/13/16 11:30 Dose: 100 mls/hr Sodium Chloride (Normal Saline -) 1,000 mls @ 75 mls/hr IV ASDIR [facility] Last Admin: 05/13/16 13:45 Dose: 75 mls/hr Ipratropium [place] (Atrovent 0.02% Nebulizer -) 1 amp NEB BID [facility] Last Admin: 05/13/16 10:25 Dose: 1 amp Levothyroxine Sodium (Synthroid -) 25 mcg PO ACBK [facility] Last Admin: 05/13/16 06:21 Dose: 25 mcg Lidocaine (Lidoderm Patch -) 1 patch TP DAILY [facility] Last Admin: 05/13/16 10:48 Dose: 1 patch Lorazepam (Ativan -) 0.25 mg PO Q12H PRN Montelukast Sodium (Singulair -) 10 mg PO HS [facility] Last Admin: 05/12/16 23:10 Dose: 10 mg Non-Formulary Medication (Budesonide [Pulmicort Flexhaler]) 180 mcg PO BID [facility] - Objective Vital Signs: Vital Signs Temperature 98.7 F 05/13/16 17:53 Pulse Rate 54 L 05/13/16 17:53 Respiratory Rate 20 05/13/16 19:00 Blood Pressure 133/52 05/13/16 17:53 O2 Sat by Pulse Oximetry (%) 94 L 05/13/16 19:00 Constitutional: Yes: No Distress HENT: Yes: Atraumatic Neck: Yes: Supple Cardiovascular: Yes: Regular Rate and Rhythm Respiratory: Yes: CTA Bilaterally Gastrointestinal: Yes: Normal Bowel Sounds Extremities: Yes: WNL Neurological: Yes: Alert, Oriented Labs: INR, PTT INR 1.12 (0.82-1.09) 05/12/16 12:10 Problem List - Problems (1) Dehydration Assessment/Plan: ivf fu labs Code(s): E86.0 - DEHYDRATION (2) Diarrhea Assessment/Plan: chck stool if getting worse Code(s): R19.7 - DIARRHEA, UNSPECIFIED Qualifiers: Diarrhea type: unspecified type Qualified Code(s): R19.7 - Diarrhea, unspecified (3) Anxiety Assessment/Plan: on meds stable Code(s): F41.9 - ANXIETY DISORDER, UNSPECIFIED (4) Hyperlipidemia Assessment/Plan: on meds Code(s): E78.5 - HYPERLIPIDEMIA, UNSPECIFIED (5) Hypothyroid Assessment/Plan: on meds Code(s): E03.9 - HYPOTHYROIDISM, UNSPECIFIED (6) Parkinsonism Assessment/Plan: on meds stable Code(s): G20 - PARKINSON'S DISEASE (7) Urinary tract infection Assessment/Plan: on iv abx ucx sent Code(s): N39.0 - URINARY TRACT INFECTION, SITE NOT SPECIFIED Qualifiers: Urinary tract infection type: site unspecified Hematuria presence: without hematuria Qualified Code(s): N39.0 - Urinary tract infection, site not specified (8) Weakness Code(s): R53.1 - WEAKNESS (9) Bipolar disorder Assessment/Plan: on meds stable Code(s): F31.9 - BIPOLAR DISORDER, UNSPECIFIED Qualifiers: Active/Remission status: remission status unspecified Qualified Code(s) : F31.9 - Bipolar disorder, unspecified (10) CKD (chronic kidney disease) stage 3, GFR 30-59 ml/min Code(s): N18.3 - CHRONIC KIDNEY DISEASE, STAGE 3 (MODERATE)
[2016-05-13] MEDS: ATORVASTATIN CA 20 MG TABLET (FP) PO SCH (22:56)
[2016-05-13] MEDS: MOMETASONE FUROATE 220 MCG/IH INHALER IH SCH (22:57)
[2016-05-13] MEDS: MONTELUKAST NA 10 MG TABLET PO SCH (22:57)
[2016-05-14] MEDS: CARBIDOPA/LEVODOPA 25/250 TABLET (FP) PO SCH ×3 (06:34→21:44)
[2016-05-14] MEDS: GEMFIBROZIL 600 MG TABLET (FP) PO SCH ×2 (06:34→16:11)
[2016-05-14] MEDS: LEVOTHYROXINE NA 25 MCG TABLET (FP) PO SCH (06:35)
[2016-05-14 08:09] LABS: BASOPHIL 0.9 % (0-2.0); EOSINOPHIL 5.2 % (0-4.5); MCH 32.6 pg (25.7-33.7); MCHC 33.9 g/dl (32.0-36.0); MEAN CELL VOLUME 96.2 fl (80-96); MEAN PLT VOLUME 8.6 fl (7.5-11.1); NEUTROPHILS 47.8 % (42.8-82.8); PLATELET COUNT 183 K/MM3 (134-434); RDW 13.1 % (11.6-15.6); WHITE BLOOD COUNT 4.7 K/mm3 (4.0-10.0)
[2016-05-14] MEDS: ALBUTEROL SO4 6.7 GM HFA INHALER IH PRN (08:25)
[2016-05-14 08:26] LABS: ALBUMIN 3.3 g/dl (3.4-5.0); ALK PHOS 80 U/L (45-117); ANION GAP 10 (8-16); BILIRUBIN,TOTAL 0.6 mg/dL (0.2-1.0); CALCIUM 8.2 mg/dL (8.5-10.1); CO2 22 mmol/L (21-32); CREATININE 0.8 mg/dL (0.55-1.02); GLUCOSE,RANDOM 94 mg/dL (74-106); SGOT/AST 11 U/L (15-37); SGPT/ALT < 6 U/L (12-78); TOT PROT 5.3 g/dl (6.4-8.2)
[2016-05-14] MEDS: IPRATROPIUM BR 0.02% 0.5 MG/2.5 ML VIAL.NEB. NEB SCH ×2 (10:15→23:00)
[2016-05-14] MEDS: MOMETASONE FUROATE 220 MCG/IH INHALER IH SCH ×2 (10:33→21:48)
[2016-05-14] MEDS: ARIPiprazole 5 MG TABLET (FP) PO SCH (10:33)
[2016-05-14] MEDS: ASPIRIN 81 MG CHEWABLE TABLETS PO SCH (10:33)
[2016-05-14] MEDS: LIDOCAINE 5% TOPICAL PATCH TP SCH (10:34)
[2016-05-14] MEDS: CITALOPRAM HYDROBROMIDE 10 MG TABLET (FP) PO SCH (10:34)
[2016-05-14] MEDS: LEVOFLOXACIN 500 MG IVPB 100 ML IVPB SCH (10:34)
[2016-05-14] MEDS: CLOPIDOGREL BISULFATE 75 MG TABLET (FP) PO SCH (10:34)
--- NOTE | 2016-05-14 15:49 | CONSULT ---
Consult Consult Specialty:: infectious diseases Reason for Consultation:: uti,dysuria - History of Present Illness Chief Complaint: suprapubic pain,dysuria History of Present Illness: 71-year-old woman, from [facility], with a significant past medical history of anemia, hypertension, hypercholesterolemia, hypothyroidism, gastrointestinal reflux disease, Parkinson's disease, bipolar disorder, who presents to the emergency department via EMS for further evaluation of generalized weakness for the past 4 days. patient mentions that she has dizziness and feels very weak. Also she mentions that she has severe burning in urine with suprapubic tenderness and pain medicine helps her currently she is still having suprapubic tenderness with dysuria since admission she feels a little better she has urgency also with dysuria - History Source History Provided By: Patient, Medical Record Limitations to Obtaining History: Other - Past Medical History Cardio/Vascular: Yes: CAD, HTN, Hyperlipdemia Pulmonary: Yes: Asthma Renal/: Yes: Renal Inusuff Psych: Yes: Anxiety, Depression, Schizophrenia Endocrine: Yes: Hypothyroidism - Past Surgical History Past Surgical History: Yes: None - Alcohol/Substance Use Hx Alcohol Use: No History of Substance Use: reports: None - Smoking History Smoking history: Never smoked Have you smoked in the past 12 months: No Aproximately how many cigarettes per day: 0 - Social History ADL: Independent History of Recent Travel: No Home Medications - Allergies Allergies/Adverse Reactions: Allergies Allergy/AdvReac Type Severity Reaction Status Date / Time morphine Allergy Unknown Verified 05/12/16 11:41 Penicillins Allergy Unknown Verified 05/12/16 11:41 chocolate Allergy Unknown Uncoded 05/12/16 11:41 - Home Medications Home Medications: Ambulatory Orders Albuterol Sulfate [Proair Respiclick] 2 puff IH BID 04/19/16 Alendronate Na [Fosamax] 70 mg PO Q7D 04/19/16 Aripiprazole [Abilify -] 5 mg PO DAILY 04/19/16 Aspirin [ASA -] 81 mg PO DAILY 04/19/16 Atorvastatin Ca [Lipitor] 20 mg PO HS 04/19/16 Budesonide/Formeterol Fumarate [SYMBICORT 160/4.5mcg -] 2 inh PO BID 04/19/16 Carbidopa/Levodopa [Carbidopa-Levodopa 25-250 Tab] 1 each PO TID 04/19/16 Citalopram Hydrobromide [Citalopram HBr] 10 mg PO DAILY 04/19/16 Clopidogrel Bisulfate [Plavix -] 75 mg PO DAILY 04/19/16 Gemfibrozil [Lopid] 600 mg PO BID 04/19/16 Ipratropium 0.02% Nebulizer [Atrovent] 1 neb NEB BID 04/19/16 Levothyroxine [Synthroid -] 25 mcg PO DAILY 04/19/16 Lidocaine 5% Patch [Lidoderm Patch -] 1 patch TP DAILY 04/19/16 Meclizine HCl 12.5 mg PO BID 04/19/16 Metoprolol Tartrate [Lopressor -] 25 mg PO DAILY 04/19/16 Mometasone/Formoterol [Dulera 100 Mcg/5 Mcg Inhaler] 2 inh IH BID 04/19/16 Montelukast Na [Singulair -] 10 mg PO HS 04/19/16 Naproxen [Naprosyn -] 500 mg PO BID 04/19/16 Omeprazole 20 mg PO DAILY 04/19/16 Risperidone [Risperdal] 2 mg PO DAILY 04/19/16 Solifenacin Succinate [Vesicare -] 10 mg PO DAILY 04/19/16 Budesonide [Pulmicort Flexhaler] 180 mcg PO BID 05/12/16 Lorazepam [Ativan] 0.25 mg PO BID 05/12/16 Olanzapine [Zyprexa] 5 mg PO DAILY 05/12/16 Risperidone [Risperdal] 8 mg PO HS 05/12/16 Review of Systems - Review of Systems Constitutional: reports: No Symptoms Eyes: reports: No Symptoms HENT: reports: No Symptoms Neck: reports: No Symptoms Cardiovascular: reports: No Symptoms Respiratory: reports: No Symptoms Gastrointestinal: reports: No Symptoms Genitourinary: reports: Burning, Dysuria, Frequency, Urgency. denies: Flank Pain, Hematuria Integumentary: reports: No Symptoms Neurological: reports: No Symptoms Endocrine: reports: No Symptoms Hematology/Lymphatic: reports: No Symptoms Psychiatric: reports: No Symptoms Physical Exam Vital Signs: Vital Signs Temperature 99 F 05/14/16 14:27 Pulse Rate 57 L 05/14/16 14:27 Respiratory Rate 18 05/14/16 14:27 Blood Pressure 131/51 05/14/16 14:27 O2 Sat by Pulse Oximetry (%) 94 L 05/14/16 13:45 Constitutional: Yes: Calm, Mild Distress Eyes: Yes: Conjunctiva Clear HENT: Yes: Atraumatic Neck: Yes: Supple, Trachea Midline Cardiovascular: Yes: Regular Rate and Rhythm Respiratory: Yes: Regular, CTA Bilaterally Gastrointestinal: Yes: Normal Bowel Sounds, Soft Renal/: Yes: Other (suprapubic tenderness) Musculoskeletal: Yes: WNL Extremities: Yes: WNL Neurological: Yes: Alert, Oriented Psychiatric: Yes: Alert, Oriented Labs: CBC, BMP 05/14/16 06:30 05/14/16 06:30 Imaging - Results Chest X-ray: Report Reviewed, Image Reviewed Cat Scan: Report Reviewed, Image Reviewed Assessment/Plan Problem List - Problems (1) Dehydration Code(s): E86.0 - DEHYDRATION (2) Diarrhea Code(s): R19.7 - DIARRHEA, UNSPECIFIED Qualifiers: Diarrhea type: unspecified type Qualified Code(s): R19.7 - Diarrhea, unspecified (3) Anxiety Code(s): F41.9 - ANXIETY DISORDER, UNSPECIFIED (4) Hyperlipidemia Code(s): E78.5 - HYPERLIPIDEMIA, UNSPECIFIED (5) Hypothyroid Code(s): E03.9 - HYPOTHYROIDISM, UNSPECIFIED (6) Parkinsonism Code(s): G20 - PARKINSON'S DISEASE (7) Urinary tract infection Code(s): N39.0 - URINARY TRACT INFECTION, SITE NOT SPECIFIED Qualifiers: Urinary tract infection type: site unspecified Hematuria presence: without hematuria Qualified Code(s): N39.0 - Urinary tract infection, site not specified (8) Weakness Code(s): R53.1 - WEAKNESS (9) Bipolar disorder Code(s): F31.9 - BIPOLAR DISORDER, UNSPECIFIED Qualifiers: Active/Remission status: remission status unspecified Qualified Code(s) : F31.9 - Bipolar disorder, unspecified (10) CKD (chronic kidney disease) stage 3, GFR 30-59 ml/min Code(s): N18.3 - CHRONIC KIDNEY DISEASE, STAGE 3 (MODERATE) patient symptoms are mostly due to uti plan hydration will start on ceftriaxone continue to monitor for dysuria and suprapubic tenderness
[2016-05-14] MEDS ORDERED: PT OWN MED DRAWER 7, Y5N ONE (16:08)
--- NOTE | 2016-05-14 17:35 | PN ---
Progress Note, Physician - Current Medication List Current Medications: Active Medications Albuterol Sulfate (Ventolin Hfa Inhaler -) 2 puff IH Q12H PRN PRN Reason: SHORTNESS OF BREATH Last Admin: 05/14/16 08:25 Dose: 2 puff Aripiprazole (Abilify) 5 mg PO DAILY [facility] Last Admin: 05/14/16 10:33 Dose: 5 mg Aspirin (Asa -) 81 mg PO DAILY [facility] Last Admin: 05/14/16 10:33 Dose: 81 mg Atorvastatin Calcium (Lipitor -) 20 mg PO HS [facility] Last Admin: 05/13/16 22:56 Dose: 20 mg Carbidopa/Levodopa (Sinemet 25/250 -) 1 each PO TID [facility] Last Admin: 05/14/16 14:52 Dose: 1 each Citalopram Hydrobromide (Celexa -) 10 mg PO DAILY [facility] Last Admin: 05/14/16 10:34 Dose: 10 mg Clopidogrel Bisulfate (Plavix -) 75 mg PO DAILY [facility] Last Admin: 05/14/16 10:34 Dose: 75 mg Gemfibrozil (Lopid -) 600 mg PO BIDAC [facility] Last Admin: 05/14/16 16:11 Dose: 600 mg Sodium Chloride (Normal Saline -) 1,000 mls @ 75 mls/hr IV ASDIR [facility] Last Admin: 05/13/16 22:56 Dose: 75 mls/hr Ceftriaxone Sodium (Rocephin 1gm Ivpb (Pre-Docked)) 50 mls @ 100 mls/hr IVPB DAILY [facility] Ipratropium [place] (Atrovent 0.02% Nebulizer -) 1 amp NEB BID [facility] Last Admin: 05/14/16 10:15 Dose: 1 amp Levothyroxine Sodium (Synthroid -) 25 mcg PO ACBK [facility] Last Admin: 05/14/16 06:35 Dose: 25 mcg Lidocaine (Lidoderm Patch -) 1 patch TP DAILY [facility] Last Admin: 05/14/16 10:34 Dose: 1 patch Lorazepam (Ativan -) 0.25 mg PO Q12H PRN Mometasone Furoate (Asmanex 220mcg -) 1 puff IH BID [facility] Last Admin: 05/14/16 10:33 Dose: 1 pfu Montelukast Sodium (Singulair -) 10 mg PO HS [facility] Last Admin: 05/13/16 22:57 Dose: 10 mg - Objective Vital Signs: Vital Signs Temperature 99 F 05/14/16 14:27 Pulse Rate 57 L 05/14/16 14:27 Respiratory Rate 18 05/14/16 14:27 Blood Pressure 131/51 05/14/16 14:27 O2 Sat by Pulse Oximetry (%) 94 L 05/14/16 13:45 Constitutional: Yes: No Distress HENT: Yes: Atraumatic Neck: Yes: Supple Cardiovascular: Yes: Regular Rate and Rhythm Respiratory: Yes: CTA Bilaterally Gastrointestinal: Yes: Normal Bowel Sounds Extremities: Yes: WNL Neurological: Yes: Alert, Oriented Labs: CBC, BMP 05/14/16 06:30 05/14/16 06:30 INR, PTT INR 1.12 (0.82-1.09) 05/12/16 12:10 Problem List - Problems (1) Dehydration Assessment/Plan: resolved dc ivf Code(s): E86.0 - DEHYDRATION (2) Diarrhea Assessment/Plan: resolving Code(s): R19.7 - DIARRHEA, UNSPECIFIED Qualifiers: Diarrhea type: unspecified type Qualified Code(s): R19.7 - Diarrhea, unspecified (3) Anxiety Assessment/Plan: on meds stable Code(s): F41.9 - ANXIETY DISORDER, UNSPECIFIED (4) Hyperlipidemia Assessment/Plan: on meds Code(s): E78.5 - HYPERLIPIDEMIA, UNSPECIFIED (5) Hypothyroid Assessment/Plan: on meds Code(s): E03.9 - HYPOTHYROIDISM, UNSPECIFIED (6) Parkinsonism Assessment/Plan: on meds stable Code(s): G20 - PARKINSON'S DISEASE (7) Urinary tract infection Assessment/Plan: on iv abx ucx sent Code(s): N39.0 - URINARY TRACT INFECTION, SITE NOT SPECIFIED Qualifiers: Urinary tract infection type: site unspecified Hematuria presence: without hematuria Qualified Code(s): N39.0 - Urinary tract infection, site not specified (8) Weakness Code(s): R53.1 - WEAKNESS (9) Bipolar disorder Code(s): F31.9 - BIPOLAR DISORDER, UNSPECIFIED Qualifiers: Active/Remission status: remission status unspecified Qualified Code(s) : F31.9 - Bipolar disorder, unspecified (10) CKD (chronic kidney disease) stage 3, GFR 30-59 ml/min Code(s): N18.3 - CHRONIC KIDNEY DISEASE, STAGE 3 (MODERATE)
[2016-05-14] MEDS: CEFTRIAXONE 50 ML IVPB SCH (18:03)
[2016-05-14] MEDS: MONTELUKAST NA 10 MG TABLET PO SCH (21:45)
[2016-05-14] MEDS: ATORVASTATIN CA 20 MG TABLET (FP) PO SCH (21:45)
[2016-05-14] MEDS: PHENAZOPYRIDINE HCL 100 MG TABLET (FP) PO SCH (21:45)
[2016-05-15] MEDS: LEVOTHYROXINE NA 25 MCG TABLET (FP) PO SCH (06:17)
[2016-05-15] MEDS: GEMFIBROZIL 600 MG TABLET (FP) PO SCH ×2 (06:17→17:59)
[2016-05-15] MEDS: CARBIDOPA/LEVODOPA 25/250 TABLET (FP) PO SCH ×3 (06:17→21:27)
[2016-05-15] MEDS ORDERED: PT OWN MED DRAWER 7, Y5N ONE ×3 (06:34→21:18)
[2016-05-15] MEDS: LIDOCAINE 5% TOPICAL PATCH TP SCH (09:24)
[2016-05-15] MEDS: CEFTRIAXONE 50 ML IVPB SCH (09:25)
[2016-05-15] MEDS: ASPIRIN 81 MG CHEWABLE TABLETS PO SCH (09:25)
[2016-05-15] MEDS: PHENAZOPYRIDINE HCL 100 MG TABLET (FP) PO SCH (09:25)
[2016-05-15] MEDS: CITALOPRAM HYDROBROMIDE 10 MG TABLET (FP) PO SCH (09:26)
[2016-05-15] MEDS: CLOPIDOGREL BISULFATE 75 MG TABLET (FP) PO SCH (09:26)
[2016-05-15] MEDS: MOMETASONE FUROATE 220 MCG/IH INHALER IH SCH ×2 (09:26→21:27)
[2016-05-15] MEDS: ARIPiprazole 5 MG TABLET (FP) PO SCH (09:26)
[2016-05-15] MEDS: IPRATROPIUM BR 0.02% 0.5 MG/2.5 ML VIAL.NEB. NEB SCH ×2 (10:30→22:44)
--- NOTE | 2016-05-15 16:11 | PN ---
Progress Note, Physician History of Present Illness: patient feeling a bit better no complaints - Current Medication List Current Medications: Active Medications Albuterol Sulfate (Ventolin Hfa Inhaler -) 2 puff IH Q12H PRN PRN Reason: SHORTNESS OF BREATH Last Admin: 05/14/16 08:25 Dose: 2 puff Aripiprazole (Abilify) 5 mg PO DAILY [facility] Last Admin: 05/15/16 09:26 Dose: 5 mg Aspirin (Asa -) 81 mg PO DAILY [facility] Last Admin: 05/15/16 09:25 Dose: 81 mg Atorvastatin Calcium (Lipitor -) 20 mg PO HS [facility] Last Admin: 05/14/16 21:45 Dose: 20 mg Carbidopa/Levodopa (Sinemet 25/250 -) 1 each PO TID [facility] Last Admin: 05/15/16 15:44 Dose: 1 each Citalopram Hydrobromide (Celexa -) 10 mg PO DAILY [facility] Last Admin: 05/15/16 09:26 Dose: 10 mg Clopidogrel Bisulfate (Plavix -) 75 mg PO DAILY [facility] Last Admin: 05/15/16 09:26 Dose: 75 mg Gemfibrozil (Lopid -) 600 mg PO BIDAC [facility] Last Admin: 05/15/16 06:17 Dose: 600 mg Ceftriaxone Sodium (Rocephin 1gm Ivpb (Pre-Docked)) 50 mls @ 100 mls/hr IVPB DAILY [facility] Last Admin: 05/15/16 09:25 Dose: 100 mls/hr Ipratropium [place] (Atrovent 0.02% Nebulizer -) 1 amp NEB BID [facility] Last Admin: 05/15/16 10:30 Dose: 1 amp Levothyroxine Sodium (Synthroid -) 25 mcg PO ACBK [facility] Last Admin: 05/15/16 06:17 Dose: 25 mcg Lidocaine (Lidoderm Patch -) 1 patch TP DAILY [facility] Last Admin: 05/15/16 09:24 Dose: 1 patch Lorazepam (Ativan -) 0.25 mg PO Q12H PRN Mometasone Furoate (Asmanex 220mcg -) 1 puff IH BID [facility] Last Admin: 05/15/16 09:26 Dose: 1 pfu Montelukast Sodium (Singulair -) 10 mg PO HS [facility] Last Admin: 05/14/16 21:45 Dose: 10 mg Phenazopyridine HCl (Pyridium -) 100 mg PO DAILY [facility] Last Admin: 05/15/16 09:25 Dose: 100 mg - Objective Vital Signs: Vital Signs Temperature 98.5 F 05/15/16 14:45 Pulse Rate 51 L 05/15/16 14:45 Respiratory Rate 17 05/15/16 14:45 Blood Pressure 136/48 05/15/16 14:45 O2 Sat by Pulse Oximetry (%) 96 05/15/16 10:00 Constitutional: Yes: No Distress, Calm Cardiovascular: Yes: Regular Rate and Rhythm Respiratory: Yes: Regular, CTA Bilaterally Gastrointestinal: Yes: Normal Bowel Sounds, Soft Musculoskeletal: Yes: WNL Extremities: Yes: WNL Neurological: Yes: Alert, Other Labs: INR, PTT INR 1.12 (0.82-1.09) 05/12/16 12:10 Assessment/Plan Problem List - Problems (1) Dehydration Code(s): E86.0 - DEHYDRATION (2) Diarrhea Code(s): R19.7 - DIARRHEA, UNSPECIFIED Qualifiers: Diarrhea type: unspecified type Qualified Code(s): R19.7 - Diarrhea, unspecified (3) Anxiety Code(s): F41.9 - ANXIETY DISORDER, UNSPECIFIED (4) Hyperlipidemia Code(s): E78.5 - HYPERLIPIDEMIA, UNSPECIFIED (5) Hypothyroid Code(s): E03.9 - HYPOTHYROIDISM, UNSPECIFIED (6) Parkinsonism Code(s): G20 - PARKINSON'S DISEASE (7) Urinary tract infection Code(s): N39.0 - URINARY TRACT INFECTION, SITE NOT SPECIFIED Qualifiers: Urinary tract infection type: site unspecified Hematuria presence: without hematuria Qualified Code(s): N39.0 - Urinary tract infection, site not specified (8) Weakness Code(s): R53.1 - WEAKNESS (9) Bipolar disorder Code(s): F31.9 - BIPOLAR DISORDER, UNSPECIFIED Qualifiers: Active/Remission status: remission status unspecified Qualified Code(s) : F31.9 - Bipolar disorder, unspecified (10) CKD (chronic kidney disease) stage 3, GFR 30-59 ml/min Code(s): N18.3 - CHRONIC KIDNEY DISEASE, STAGE 3 (MODERATE) patient symptoms are mostly due to uti plan hydration continue abx rest as per primary
--- NOTE | 2016-05-15 17:29 | PN ---
Progress Note, Physician - Current Medication List Current Medications: Active Medications Albuterol Sulfate (Ventolin Hfa Inhaler -) 2 puff IH Q12H PRN PRN Reason: SHORTNESS OF BREATH Last Admin: 05/14/16 08:25 Dose: 2 puff Aripiprazole (Abilify) 5 mg PO DAILY [facility] Last Admin: 05/15/16 09:26 Dose: 5 mg Aspirin (Asa -) 81 mg PO DAILY [facility] Last Admin: 05/15/16 09:25 Dose: 81 mg Atorvastatin Calcium (Lipitor -) 20 mg PO HS [facility] Last Admin: 05/14/16 21:45 Dose: 20 mg Carbidopa/Levodopa (Sinemet 25/250 -) 1 each PO TID [facility] Last Admin: 05/15/16 15:44 Dose: 1 each Citalopram Hydrobromide (Celexa -) 10 mg PO DAILY [facility] Last Admin: 05/15/16 09:26 Dose: 10 mg Clopidogrel Bisulfate (Plavix -) 75 mg PO DAILY [facility] Last Admin: 05/15/16 09:26 Dose: 75 mg Gemfibrozil (Lopid -) 600 mg PO BIDAC [facility] Last Admin: 05/15/16 06:17 Dose: 600 mg Ceftriaxone Sodium (Rocephin 1gm Ivpb (Pre-Docked)) 50 mls @ 100 mls/hr IVPB DAILY [facility] Last Admin: 05/15/16 09:25 Dose: 100 mls/hr Ipratropium [place] (Atrovent 0.02% Nebulizer -) 1 amp NEB BID [facility] Last Admin: 05/15/16 10:30 Dose: 1 amp Levothyroxine Sodium (Synthroid -) 25 mcg PO ACBK [facility] Last Admin: 05/15/16 06:17 Dose: 25 mcg Lidocaine (Lidoderm Patch -) 1 patch TP DAILY [facility] Last Admin: 05/15/16 09:24 Dose: 1 patch Lorazepam (Ativan -) 0.25 mg PO Q12H PRN Mometasone Furoate (Asmanex 220mcg -) 1 puff IH BID [facility] Last Admin: 05/15/16 09:26 Dose: 1 pfu Montelukast Sodium (Singulair -) 10 mg PO HS [facility] Last Admin: 05/14/16 21:45 Dose: 10 mg Phenazopyridine HCl (Pyridium -) 100 mg PO DAILY [facility] Last Admin: 05/15/16 09:25 Dose: 100 mg - Objective Vital Signs: Vital Signs Temperature 98.5 F 05/15/16 14:45 Pulse Rate 51 L 05/15/16 14:45 Respiratory Rate 17 05/15/16 14:45 Blood Pressure 136/48 05/15/16 14:45 O2 Sat by Pulse Oximetry (%) 96 05/15/16 10:00 Constitutional: Yes: No Distress HENT: Yes: Atraumatic Neck: Yes: Supple Cardiovascular: Yes: Regular Rate and Rhythm Respiratory: Yes: CTA Bilaterally Gastrointestinal: Yes: Normal Bowel Sounds Extremities: Yes: WNL Neurological: Yes: Alert, Oriented Labs: INR, PTT INR 1.12 (0.82-1.09) 05/12/16 12:10 Problem List - Problems (1) Dehydration Assessment/Plan: resolved dc ivf Code(s): E86.0 - DEHYDRATION (2) Diarrhea Assessment/Plan: resolving Code(s): R19.7 - DIARRHEA, UNSPECIFIED Qualifiers: Diarrhea type: unspecified type Qualified Code(s): R19.7 - Diarrhea, unspecified (3) Anxiety Assessment/Plan: on meds stable Code(s): F41.9 - ANXIETY DISORDER, UNSPECIFIED (4) Hyperlipidemia Assessment/Plan: on meds Code(s): E78.5 - HYPERLIPIDEMIA, UNSPECIFIED (5) Hypothyroid Assessment/Plan: on meds Code(s): E03.9 - HYPOTHYROIDISM, UNSPECIFIED (6) Parkinsonism Assessment/Plan: on meds stable Code(s): G20 - PARKINSON'S DISEASE (7) Urinary tract infection Assessment/Plan: on iv abx ucx sent Code(s): N39.0 - URINARY TRACT INFECTION, SITE NOT SPECIFIED Qualifiers: Urinary tract infection type: site unspecified Hematuria presence: without hematuria Qualified Code(s): N39.0 - Urinary tract infection, site not specified (8) Weakness Code(s): R53.1 - WEAKNESS (9) Bipolar disorder Assessment/Plan: on meds stable Code(s): F31.9 - BIPOLAR DISORDER, UNSPECIFIED Qualifiers: Active/Remission status: remission status unspecified Qualified Code(s) : F31.9 - Bipolar disorder, unspecified (10) CKD (chronic kidney disease) stage 3, GFR 30-59 ml/min Code(s): N18.3 - CHRONIC KIDNEY DISEASE, STAGE 3 (MODERATE) Assessment/Plan need to know from id if we can switch her to poabx and how many days dc in am if stable
[2016-05-15] MEDS: MONTELUKAST NA 10 MG TABLET PO SCH (21:27)
[2016-05-15] MEDS: ATORVASTATIN CA 20 MG TABLET (FP) PO SCH (21:27)
[2016-05-16] MEDS ORDERED: PT OWN MED DRAWER 7, Y5N ONE ×3 (06:12→11:06)
[2016-05-16] MEDS: GEMFIBROZIL 600 MG TABLET (FP) PO SCH (06:16)
[2016-05-16] MEDS: CARBIDOPA/LEVODOPA 25/250 TABLET (FP) PO SCH (06:16)
[2016-05-16] MEDS: LEVOTHYROXINE NA 25 MCG TABLET (FP) PO SCH (06:16)
[2016-05-16 08:01] LABS: BASOPHIL 0.8 % (0-2.0); EOSINOPHIL 6.1 % (0-4.5); MCH 32.7 pg (25.7-33.7); MCHC 34.1 g/dl (32.0-36.0); MEAN CELL VOLUME 95.7 fl (80-96); MEAN PLT VOLUME 8.5 fl (7.5-11.1); NEUTROPHILS 52.5 % (42.8-82.8); PLATELET COUNT 211 K/MM3 (134-434); RDW 13.1 % (11.6-15.6); WHITE BLOOD COUNT 4.9 K/mm3 (4.0-10.0)
[2016-05-16 08:28] LABS: ALBUMIN 3.4 g/dl (3.4-5.0); ANION GAP 10 (8-16); BILIRUBIN,TOTAL 0.5 mg/dL (0.2-1.0); CALCIUM 8.6 mg/dL (8.5-10.1); CO2 21 mmol/L (21-32); CREATININE 0.7 mg/dL (0.55-1.02); GLUCOSE,RANDOM 109 mg/dL (74-106); SGOT/AST 11 U/L (15-37); SGPT/ALT 7 U/L (12-78); TOT PROT 5.8 g/dl (6.4-8.2)
[2016-05-16 08:29] LABS: ALK PHOS 84 U/L (45-117)
[2016-05-16 08:57] VITALS: BP 122/64; PULSE 64; TEMP 97.2
[2016-05-16] MEDS: CEFTRIAXONE 50 ML IVPB SCH (10:08)
[2016-05-16] MEDS: LIDOCAINE 5% TOPICAL PATCH TP SCH (10:09)
[2016-05-16] MEDS: CITALOPRAM HYDROBROMIDE 10 MG TABLET (FP) PO SCH (10:09)
[2016-05-16] MEDS: ALBUTEROL SO4 6.7 GM HFA INHALER IH PRN (10:09)
[2016-05-16] MEDS: ASPIRIN 81 MG CHEWABLE TABLETS PO SCH (10:09)
[2016-05-16] MEDS: PHENAZOPYRIDINE HCL 100 MG TABLET (FP) PO SCH (10:09)
[2016-05-16] MEDS: CLOPIDOGREL BISULFATE 75 MG TABLET (FP) PO SCH (10:09)
[2016-05-16] MEDS: ARIPiprazole 5 MG TABLET (FP) PO SCH (10:10)
[2016-05-16] MEDS: MOMETASONE FUROATE 220 MCG/IH INHALER IH SCH (10:11)
[2016-05-16] MEDS: IPRATROPIUM BR 0.02% 0.5 MG/2.5 ML VIAL.NEB. NEB SCH (10:13)
--- NOTE | 2016-05-16 11:51 | DS ---
Physical Examination Vital Signs: Vital Signs Temperature 97.2 F L 05/16/16 08:56 Pulse Rate 64 05/16/16 08:56 Respiratory Rate 18 05/16/16 08:56 Blood Pressure 122/64 05/16/16 08:56 O2 Sat by Pulse Oximetry (%) 97 05/16/16 02:00 Labs: CBC, BMP 05/16/16 06:46 05/16/16 06:46 Discharge Summary Reason For Visit: DIZZINESS/DIARRHEA/DEHYDRATION Current Active Problems Dehydration (Acute) Diarrhea (Acute) Anxiety (Chronic) GERD (gastroesophageal reflux disease) (Chronic) Hyperlipidemia (Chronic) Hypothyroid (Chronic) Parkinsonism (Chronic) uti - Home Medications Comprehensive Discharge Medication List: Ambulatory Orders Albuterol Sulfate [Proair Respiclick] 2 puff IH BID 04/19/16 Alendronate Na [Fosamax (Weekly)] 70 mg PO Q7D 04/19/16 Aripiprazole [Abilify -] 5 mg PO DAILY 04/19/16 Aspirin [ASA -] 81 mg PO DAILY 04/19/16 Atorvastatin Ca [Lipitor] 20 mg PO HS 04/19/16 Budesonide/Formeterol Fumarate [SYMBICORT 160/4.5mcg -] 2 inh PO BID 04/19/16 Carbidopa/Levodopa [Carbidopa-Levodopa 25-250 Tab] 1 each PO TID 04/19/16 Citalopram Hydrobromide [Citalopram HBr] 10 mg PO DAILY 04/19/16 Clopidogrel Bisulfate [Plavix -] 75 mg PO DAILY 04/19/16 Gemfibrozil [Lopid] 600 mg PO BID 04/19/16 Ipratropium 0.02% Nebulizer [Atrovent 0.02% Nebulizer -] 1 neb NEB BID 04/19/16 Levothyroxine [Synthroid -] 25 mcg PO DAILY 04/19/16 Lidocaine 5% Patch [Lidoderm -] 1 patch TP DAILY 04/19/16 Meclizine HCl 12.5 mg PO BID 04/19/16 Metoprolol Tartrate [Lopressor -] 25 mg PO DAILY 04/19/16 Mometasone/Formoterol [Dulera 100 Mcg/5 Mcg Inhaler] 2 inh IH BID 04/19/16 Montelukast Na [Singulair -] 10 mg PO HS 04/19/16 Naproxen [Naprosyn -] 500 mg PO BID 04/19/16 Omeprazole 20 mg PO DAILY 04/19/16 Risperidone [Risperdal -] 2 mg PO DAILY 04/19/16 Solifenacin Succinate [Vesicare -] 10 mg PO DAILY 04/19/16 Budesonide [Pulmicort Flexhaler] 180 mcg PO BID 05/12/16 Lorazepam [Ativan] 0.25 mg PO BID 05/12/16 Olanzapine [Zyprexa] 5 mg PO DAILY 05/12/16 Risperidone [Risperdal] 8 mg PO HS 05/12/16 completed antibiotics...d/w id [facility]
== END 2016-05-16 13:16 | disposition home or self-care (01) | DRG 690 ==
LOC: JER 11:31 → JERBED 16:27 → INTOOBSV 16:27 → UNDOADMOB 16:27 → J5S 18:36 → JERBED 18:36 → J5S 19:12 → OBSVTOIN 05-14 17:41
PROVIDERS: ADMIT Internal Medicine; ATTEND Internal Medicine
DX: N39.0 Urinary tract infection, site not specified (principal); F20.89 Other schizophrenia; E86.0 Dehydration; D64.9 Anemia, unspecified; E78.00 Pure hypercholesterolemia, unspecified; E03.9 Hypothyroidism, unspecified; K21.9 Gastro-esophageal reflux disease without esophagitis; R19.7 Diarrhea, unspecified; G20 Parkinson's disease; J45.909 Unspecified asthma, uncomplicated; I25.10 Atherosclerotic heart disease of native coronary artery without angina pectoris; F41.8 Other specified anxiety disorders; I12.9 Hypertensive chronic kidney disease with stage 1 through stage 4 chronic kidney disease, or unspecified chronic kidney disease; N18.3 Chronic kidney disease, stage 3 (moderate); Z88.0 Allergy status to penicillin
CPT/HCPCS: 36415; 70450-TC; 71010-TC; 74177-TC; 80053; 81003; 81015; 82272; 84443; 85025; 85610; 86850; 86900; 86901; 87086; 93005; 93010; 94640; 97116-GP; 97161-GP; 99285-25; G0378

== ENCOUNTER 2016-06-20 10:09 | Emergency (ER) | payer OTHER ==
--- NOTE | 2016-06-20 10:32 | PDOC ---
History of Present Illness - General History Source: Patient Exam Limitations: No Limitations - History of Present Illness Initial Comments: CHIEF COMPLAINT: 71 y/o afebrile female with PMH HTN, HLD, COPD, Parkinson's c/ o sent in from nursing residence for abdominal pain and dysuria. HISTORY OF PRESENT ILLNESS: The patient states since last night she's had lower abdominal pain and painful urination. She states today she feels nauseous and vomited 1 time. She denies fever, back pain, CP, SOB, hematuria. Vital signs on arrival are within normal limits. REVIEW OF SYSTEMS: GENERAL/CONSTITUTIONAL: No fever/chills. No weakness. No weight change. HEAD, EYES, EARS, NOSE AND THROAT: No change in vision. No ear pain or discharge. No sore throat. CARDIOVASCULAR: No chest pain or shortness of breath. RESPIRATORY: No cough, wheezing, or hemoptysis. GASTROINTESTINAL: +nausea and 1 episode of vomiting. +lower abdominal pain. GENITOURINARY: +dysuria and frequency. MUSCULOSKELETAL: No joint or muscle swelling or pain. No neck or back pain. SKIN: No rash or easy bruising. NEUROLOGIC: No headache, vertigo, loss of consciousness, or loss of sensation. PHYSICAL EXAM: GENERAL: The patient is awake, alert, and fully oriented, in no acute distress. She is well appearing. HEAD: Normal with no signs of trauma. ENT: Pupils equal, round and reactive to light, extraocular movements intact, sclera anicteric, conjunctiva clear. Neck supple. LUNGS: Clear to auscultation bilaterally. Normal excursion. No respiratory distress or use of accessory muscles. CV: RRR, S1/S2, no MRG. Cap refill < 2 sec. ABDOMEN: Soft, non-distended, TTP of suprapubic region. No rebound, guarding or rigidity. BACK: No CVA TTP b/l. EXTREMITIES: Normal range of motion, no edema. NEUROLOGICAL: Normal speech, normal gait. CN II-XII grossly intact. PSYCH: Normal mood, normal affect. SKIN: Warm, dry, normal turgor, no rashes or lesions noted. <Nighat Benitez - Last Filed: 06/20/16 13:49> <Liam Villela - Last Filed: 06/23/16 08:09> - General Chief Complaint: Pain Stated Complaint: ABD PAIN Time Seen by Provider: 06/20/16 10:30 Past History - Past Medical History Anemia: Yes Asthma: Yes Cancer: No Cardiac Disorders: (hx of chest pain) CVA: No COPD: Yes (PT STATED) CHF: No Dementia: No Diabetes: No GI Disorders: Yes (GERD) Disorders: Yes (incontinence) HTN: Yes Hypercholesterolemia: Yes Liver Disease: No Psychiatric Problems: Yes (BiPolar) Suicide Attempt (Hx): No Seizures: Yes Thyroid Disease: Yes (HYPO.) - Surgical History Abdominal Surgery: No Appendectomy: No Cardiac Surgery: No Cholecystectomy: No Lung Surgery: No Neurologic Surgery: No Orthopedic Surgery: No - Immunization History Td Vaccination: (unknown) Immunization Up to Date: No - Psycho/Social/Smoking Cessation Hx Anxiety: No Suicidal Ideation: No Smoking Status: No Smoking History: Never smoked Years of Tobacco Use: 0 Have you smoked in the past 12 months: No Number of Cigarettes Smoked Daily: 0 Cigars Per Day: 0 Information on smoking cessation initiated: No Hx Alcohol Use: No Drug/Substance Use Hx: No Substance Use Type: None Hx Substance Use Treatment: No <Nighat Benitez - Last Filed: 06/20/16 13:49> <Liam Villela - Last Filed: 06/23/16 08:09> - Past Medical History Allergies/Adverse Reactions: Allergies Allergy/AdvReac Type Severity Reaction Status Date / Time morphine Allergy Unknown Verified 06/20/16 10:25 Penicillins Allergy Unknown Verified 06/20/16 10:25 chocolate Allergy Unknown Uncoded 06/20/16 10:25 Home Medications: Ambulatory Orders Albuterol Sulfate [Proair Respiclick] 2 puff IH BID 04/19/16 Alendronate Na [Fosamax (Weekly)] 70 mg PO Q7D 04/19/16 Aripiprazole [Abilify -] 5 mg PO DAILY 04/19/16 Aspirin [ASA -] 81 mg PO DAILY 04/19/16 Atorvastatin Ca [Lipitor] 20 mg PO HS 04/19/16 Budesonide/Formeterol Fumarate [SYMBICORT 160/4.5mcg -] 2 inh PO BID 04/19/16 Carbidopa/Levodopa [Carbidopa-Levodopa 25-250 Tab] 1 each PO TID 04/19/16 Citalopram Hydrobromide [Citalopram HBr] 10 mg PO DAILY 04/19/16 Clopidogrel Bisulfate [Plavix -] 75 mg PO DAILY 04/19/16 Gemfibrozil [Lopid] 600 mg PO BID 04/19/16 Ipratropium 0.02% Nebulizer [Atrovent 0.02% Nebulizer -] 1 neb NEB BID 04/19/16 Levothyroxine [Synthroid -] 25 mcg PO DAILY 04/19/16 Lidocaine 5% Patch [Lidoderm -] 1 patch TP DAILY 04/19/16 Meclizine HCl 12.5 mg PO BID 04/19/16 Metoprolol Tartrate [Lopressor -] 25 mg PO DAILY 04/19/16 Mometasone/Formoterol [Dulera 100 Mcg/5 Mcg Inhaler] 2 inh IH BID 04/19/16 Montelukast Na [Singulair -] 10 mg PO HS 04/19/16 Naproxen [Naprosyn -] 500 mg PO BID 04/19/16 Omeprazole 20 mg PO DAILY 04/19/16 Risperidone [Risperdal -] 2 mg PO DAILY 04/19/16 Solifenacin Succinate [Vesicare -] 10 mg PO DAILY 04/19/16 Budesonide [Pulmicort Flexhaler] 180 mcg PO BID 05/12/16 Lorazepam [Ativan] 0.25 mg PO BID 05/12/16 Olanzapine [Zyprexa] 5 mg PO DAILY 05/12/16 Risperidone [Risperdal] 8 mg PO HS 05/12/16 Levofloxacin [Levaquin -] 250 mg PO DAILY #5 tablet 06/20/16 Abd/GI Specific PMHX - Complaint Specific PMHX GI Ulcer Disease: No <Nighat Benitez - Last Filed: 06/20/16 13:49> *Physical Exam - Vital Signs Last Vital Signs Temp Pulse Resp BP Pulse Ox 98.2 F 70 20 140/46 96 06/20/16 10:25 06/20/16 10:25 06/20/16 10:25 06/20/16 10:25 06/20/16 10:25 <Nighat Benitez - Last Filed: 06/20/16 13:49> - Vital Signs Last Vital Signs Temp Pulse Resp BP Pulse Ox 97.8 F 57 L 18 110/54 97 06/20/16 14:54 06/20/16 16:14 06/20/16 16:14 06/20/16 16:14 06/20/16 16:14 <Liam Villela - Last Filed: 06/23/16 08:09> ED Treatment Course - LABORATORY CBC & Chemistry Diagram: 06/20/16 12:15 06/20/16 12:15 <Nighat Benitez - Last Filed: 06/20/16 13:49> - LABORATORY CBC & Chemistry Diagram: 06/20/16 12:15 06/20/16 12:15 - ADDITIONAL ORDERS Additional order review: 06/20/16 11:00 Urine Culture - Final Urine - Urine Clean Catch Contaminated: Please Repeat 06/20/16 12:15 RBC 3.88 MCV 96.0 MCHC 33.5 RDW 13.5 MPV 8.3 Neutrophils % 61.6 Lymphocytes % 26.3 D Monocytes % 8.7 Eosinophils % 2.7 Basophils % 0.7 - Medications Given in the ED: ED Medications Discontinued Medications Generic Name Dose Route Start Last Admin Trade Name Freq PRN Reason Stop Dose Admin Sodium Chloride 1,000 mls @ 1,000 mls/hr 06/20/16 11:51 06/20/16 13:16 Normal Saline - IV 06/20/16 12:50 Not Given ASDIR STA Levofloxacin 750 mg 06/20/16 13:45 06/20/16 13:50 Levaquin PO 750 mg DAILY NITESH Administration Ondansetron HCl 4 mg 06/20/16 10:40 06/20/16 12:40 Zofran Odt - SL 06/20/16 10:41 4 mg ONCE ONE Administration <Lima Villela - Last Filed: 06/23/16 08:09> Medical Decision Making - Medical Decision Making A/P: 71 y/o afebrile female with dysuria, frequency and lower abd pain. Plan is as follows: 1. UA/culture 2. zofran labs ok; no sign of infection/sepsis. Vital signs remain normal. Not concerned for pyelo or sepsis at this time. UA 3+ leuks and 75 WBCs. Will treat with PO levaquin Will discharge back to residency with rx for levaquin. Instructed her to drink plenty of fluids and return to the ER with any worsening or concerning symptoms. The patient verbalizes understanding of all instructions, has no further questions and is awaiting discharge. <Nighat Benitez - Last Filed: 06/20/16 13:49> - Medical Decision Making 06/23/16 08:09 The patient was seen and evaluated in conjunction with JORDEN Benitez under my direct supervision, ancillary studies were reviewed. I agree with the plan as outlined by JORDEN Benitez . <Liam Villela - Last Filed: 06/23/16 08:09> *DC/Admit/Observation/Transfer <Nighat Benitez - Last Filed: 06/20/16 13:49> <Liam Villela - Last Filed: 06/23/16 08:09> Diagnosis at time of Disposition: Urinary tract infection Qualifiers: Urinary tract infection type: acute cystitis Hematuria presence: without hematuria Qualified Code(s): N30.00 - Acute cystitis without hematuria - Discharge Dispostion Disposition: [facility] Condition at time of disposition: Good - Prescriptions Prescriptions: Levofloxacin [Levaquin -] 250 mg PO DAILY #5 tablet - Patient Instructions Printed Discharge Instructions: DI for Urinary Tract Infection (UTI) Additional Instructions: Discharge instructions: -A prescription was sent to your pharmacy; please take as prescribed for your UTI -Drink at least 64oz of water daily -Return to the ER with any worsening or concerning symptoms.
[2016-06-20 10:37] VITALS: BMI 31.8
[2016-06-20] MEDS ORDERED: ONDANSETRON *ODT* 4 MG TABLET SL ONE (10:40)
[2016-06-20] MEDS ORDERED: ONDANSETRON *ODT* 4 MG TABLET ONE ×2 (10:48→12:58)
[2016-06-20 11:19] LABS: URINE APPEARANCE CLEAR; URINE BILIRUBIN NEGATIVE (NEGATIVE); URINE BLOOD NEGATIVE (NEGATIVE); URINE COLOR LTYELLOW; URINE GLUCOSE (UA) NEGATIVE (NEGATIVE); URINE KETONE NEGATIVE (NEGATIVE); URINE NITRITE NEGATIVE (NEGATIVE); URINE PROTEIN NEGATIVE (NEGATIVE); URINE UROBILINOGEN NEGATIVE E.U./dl (0.2-1.0)
[2016-06-20 11:20] LABS: URINE LEUK ESTERASE 3+ (NEGATIVE)
[2016-06-20 11:21] LABS: URINE RBC 1 /hpf (0-3); URINE WBC 75 /hpf (3-5)
[2016-06-20] MEDS ORDERED: SODIUM CHLORIDE 1,000 ML IV STA (11:51)
[2016-06-20 12:26] LABS: BASOPHIL 0.7 % (0-2.0); EOSINOPHIL 2.7 % (0-4.5); MCH 32.2 pg (25.7-33.7); MCHC 33.5 g/dl (32.0-36.0); MEAN PLT VOLUME 8.3 fl (7.5-11.1); NEUTROPHILS 61.6 % (42.8-82.8); PLATELET COUNT 217 K/MM3 (134-434); RDW 13.5 % (11.6-15.6); WHITE BLOOD COUNT 6.1 K/mm3 (4.0-10.0)
[2016-06-20 13:22] LABS: ALBUMIN 3.7 g/dl (3.4-5.0); ANION GAP 10 (8-16); CALCIUM 8.7 mg/dL (8.5-10.1); CO2 24 mmol/L (21-32); COCKROFT - GAULT 81.5235; CREATININE 0.8 mg/dL (0.55-1.02); GLUCOSE,RANDOM 112 mg/dL (74-106); SGOT/AST 9 U/L (15-37); SGPT/ALT 10 U/L (12-78)
[2016-06-20 13:24] LABS: ALK PHOS 110 U/L (45-117); BILIRUBIN,TOTAL 0.4 mg/dL (0.2-1.0); TOT PROT 6.1 g/dl (6.4-8.2)
[2016-06-20] MEDS ORDERED: LEVOFLOXACIN 500 MG IVPB 100 ML IVPB ONE (13:34)
[2016-06-20] MEDS ORDERED: LEVOFLOXACIN 750 MG TABLET PO SCH (13:45)
[2016-06-20] MEDS ORDERED: LEVOFLOXACIN 250 MG TABLET (FP) ONE (13:56)
[2016-06-20] MEDS ORDERED: LEVOFLOXACIN 500 MG TABLET (FP) ONE (13:56)
[2016-06-20 14:55] VITALS: TEMP 97.8
[2016-06-20 16:15] VITALS: BP 110/54; PULSE 57
== END 2016-06-20 16:22 ==
LOC: JER 10:09
DX: N30.00 Acute cystitis without hematuria (principal); I10 Essential (primary) hypertension; E78.00 Pure hypercholesterolemia, unspecified; E03.9 Hypothyroidism, unspecified; J44.9 Chronic obstructive pulmonary disease, unspecified; J45.909 Unspecified asthma, uncomplicated; K21.9 Gastro-esophageal reflux disease without esophagitis; G31.9 Degenerative disease of nervous system, unspecified; G20 Parkinson's disease
CPT/HCPCS: 36415; 80053; 81003; 81015; 85025; 87086; 99281-25

== ENCOUNTER 2016-09-01 10:07 | Inpatient (IN) | payer OTHER ==
--- NOTE | 2016-09-01 10:34 | PDOC ---
History of Present Illness - General Chief Complaint: Chronic pain Stated Complaint: WEAKNESS Time Seen by Provider: 09/01/16 10:33 History Source: Patient Exam Limitations: No Limitations - History of Present Illness Initial Comments: 09/01/16 10:33 CHIEF COMPLAINT: Pain HISTORY OF PRESENT ILLNESS: This is a 71 year old female resident of [facility] assisted [facility]) with a history of CAD, asthma/COPD , HTN, bipolar disorder, hypothyroidism, Parkinson's disease, diverticulitis, and hernia repair brought in to the ED by EMS following a fall. She states that she rolled out of bed and injured her knees and lower back. She denies head trauma or LOC. She is complaining of pain. V/s on arrival are notable for RR 26 and SpO2 93%. The patient is lethargic but arousable to voice. REVIEW OF SYSTEMS: GENERAL/CONSTITUTIONAL: Generalized weakness. No fever or chills. No weight change. HEAD, EYES, EARS, NOSE AND THROAT: No change in vision. No ear pain or discharge. No sore throat. CARDIOVASCULAR: No chest pain or palpitations. RESPIRATORY: No cough, wheezing, or shortness of breath. GASTROINTESTINAL: No nausea, vomiting, diarrhea or constipation. GENITOURINARY: No dysuria, frequency, or change in urination. MUSCULOSKELETAL: Bilateral knee pain, low back paain. SKIN: No rash or easy bruising. NEUROLOGIC: No headache, vertigo, loss of consciousness, or loss of sensation. PSYCHIATRIC: Denies psychiatric history. ENDOCRINE: No increased thirst. No abnormal weight change. HEMATOLOGIC/LYMPHATIC: No anemia, easy bleeding, or history of blood clots. ALLERGIC/IMMUNOLOGIC: History of morphine and PCN allergies. PHYSICAL EXAM: GENERAL: The patient is lethargic but arousable to voice, answers most questions . HEAD: Normal with no signs of trauma. ENT: Pupils equal, round and reactive to light, extraocular movements intact, sclera anicteric, conjunctiva clear. Neck supple. LUNGS: Clear to auscultation bilaterally. Normal excursion. No respiratory distress or use of accessory muscles. CV: RRR, S1/S2, no MRG. Cap refill < 2 sec. ABDOMEN: Firm, distended, non-tender. EXTREMITIES: Unable to flex left knee to 90 degrees, pain with Varus stress. Pain with palpation of right patella. NEUROLOGICAL: Normal speech. CN II-XII grossly intact. PSYCH: Flat affect. SKIN: Warm, dry, normal turgor, no rashes or lesions noted. Past History - Past Medical History Allergies/Adverse Reactions: Allergies Allergy/AdvReac Type Severity Reaction Status Date / Time morphine Allergy Unknown Verified 09/01/16 10:26 Penicillins Allergy Unknown Verified 09/01/16 10:26 chocolate Allergy Unknown Uncoded 09/01/16 10:26 Home Medications: Ambulatory Orders Alendronate Na [Fosamax (Weekly)] 70 mg PO MO 04/19/16 Aripiprazole [Abilify -] 5 mg PO DAILY 04/19/16 Aspirin [ASA -] 81 mg PO DAILY 04/19/16 Atorvastatin Ca [Lipitor] 20 mg PO HS 04/19/16 Carbidopa/Levodopa [Carbidopa-Levodopa 25-250 Tab] 1 each PO TID 04/19/16 Citalopram Hydrobromide [Citalopram HBr] 10 mg PO DAILY 04/19/16 Clopidogrel Bisulfate [Plavix -] 75 mg PO DAILY 04/19/16 Gemfibrozil [Lopid] 600 mg PO BID 04/19/16 Levothyroxine [Synthroid -] 25 mcg PO DAILY 04/19/16 Meclizine HCl 12.5 mg PO BID 04/19/16 Metoprolol Tartrate [Lopressor -] 25 mg PO DAILY 04/19/16 Montelukast Na [Singulair -] 10 mg PO DAILY 04/19/16 Naproxen [Naprosyn -] 1,000 mg PO BID 04/19/16 Omeprazole 20 mg PO DAILY 04/19/16 Risperidone [Risperdal -] 2 mg PO DAILY 04/19/16 Solifenacin Succinate [Vesicare -] 10 mg PO DAILY 04/19/16 Budesonide [Pulmicort Flexhaler] 180 mcg PO BID 05/12/16 Lorazepam [Ativan] 0.25 mg PO BID 05/12/16 Olanzapine [Zyprexa] 5 mg PO HS 05/12/16 Risperidone [Risperdal] 8 mg PO HS 05/12/16 Acetaminophen [Mapap] 1,000 mg PO BID 09/01/16 Albuterol 0.083% Nebulizer Shavon [Ventolin 0.083% Nebulizer Soln -] 1 amp NEB TID 09/01/16 Fluticasone Prop 0.05% Nasal [Flonase -] 2 spray NS DAILY 09/01/16 Pantoprazole Sodium [Protonix -] 20 mg PO DAILY 09/01/16 Tiotropium [place] [Spiriva] 2 inh PO DAILY 09/01/16 Tramadol HCl [Ultram -] 50 mg PO TID 09/01/16 Anemia: Yes Asthma: Yes Cancer: No Cardiac Disorders: (hx of chest pain) CVA: No COPD: Yes (PT STATED) CHF: No Dementia: No Diabetes: No GI Disorders: Yes (GERD) Disorders: Yes (incontinence) HTN: Yes Hypercholesterolemia: Yes Liver Disease: No Psychiatric Problems: Yes (BiPolar) Suicide Attempt (Hx): No Seizures: Yes Thyroid Disease: Yes (HYPO.) - Surgical History Abdominal Surgery: No Appendectomy: No Cardiac Surgery: No Cholecystectomy: No Lung Surgery: No Neurologic Surgery: No Orthopedic Surgery: No - Immunization History Td Vaccination: (unknown) Immunization Up to Date: No - Psycho/Social/Smoking Cessation Hx Anxiety: No Suicidal Ideation: No Smoking Status: No Smoking History: Never smoked Years of Tobacco Use: 0 Have you smoked in the past 12 months: No Number of Cigarettes Smoked Daily: 0 Cigars Per Day: 0 Hx Alcohol Use: No Drug/Substance Use Hx: No Substance Use Type: None Hx Substance Use Treatment: No *Physical Exam - Vital Signs Last Vital Signs Temp Pulse Resp BP Pulse Ox 98.1 F 86 26 H 123/48 93 L 09/01/16 10:27 09/01/16 10:27 09/01/16 10:27 09/01/16 10:27 09/01/16 10:27 ED Treatment Course - LABORATORY CBC & Chemistry Diagram: 09/01/16 11:01 09/01/16 11:01 Medical Decision Making - Medical Decision Making 09/01/16 11:01 A/P: 71 year old female with knee and low back pain s/p fall, also with weakness , lethargy, tachypnea, and mild hypoxia. Possible medication overdose. 1. Supplemental O2 2. EKG 3. CXR 4. Labs including toxic metabolic encephalopathy workup 5. Abd u/s (distention) 6. UA/culture (very foul smelling urine on exam) 7. Low back and bilateral knee xrays 8. Toradol 15mg IVP x 1 for pain 9. HCT 10. Re-assess 09/01/16 12:10 WBC 12.5 with 91% neutrophils Cr 2.0 (0.8 on prior visit in June) Bicarb 17 INR 1.65 (normal range in June) Alk phos elevated at 172 Ammonia WNL 09/01/16 13:23 RUQ u/s: normal, no evidence of ascites Bilat knee xrays: extensive osteoarthritis; no acute process LS spine xray: DJD, no acute process CXR: No acute process HCT: No acute process Patient remains lethargic and is unable to safely ambulate on her own. Will request admission for further workup of AMS. Dr. Alvarado pageingrid. 09/01/16 15:21 Accepted for admission by Dr. Alvarado. *DC/Admit/Observation/Transfer Diagnosis at time of Disposition: Lethargy, Acute kidney injury Altered mental status Qualifiers: Altered mental status type: disorientation Qualified Code(s): R41.0 - Disorientation, unspecified - Discharge Dispostion Condition at time of disposition: Guarded Admit: Yes
--- NOTE | 2016-09-01 10:48 | EKG ---
Test Reason : Blood Pressure : / mmHG Vent. Rate : 077 BPM Atrial Rate : 077 BPM P-R Int : 188 ms QRS Dur : 086 ms QT Int : 382 ms P-R-T Axes : 049 027 070 degrees QTc Int : 432 ms NORMAL SINUS RHYTHM SEPTAL INFARCT (CITED ON OR BEFORE 28-JAN-2016) ABNORMAL ECG WHEN COMPARED WITH ECG OF 12-MAY-2016 11:55, [place] INTERVAL HAS DECREASED QUESTIONABLE CHANGE IN INITIAL FORCES OF SEPTAL LEADS Confirmed by SKYLER LAGUERRE MD ([id number]) on 09/01/2016 10:48:32 AM Referred By: Confirmed By:SKYLER LAGUERRE MD
[2016-09-01] MEDS ORDERED: KETOROLAC TROMETHAMINE 15 MG/ML VIAL IVPUSH ONE (11:05)
[2016-09-01 11:10] LABS: BASOPHIL 0.1 % (0-2.0); EOSINOPHIL 0.4 % (0-4.5); MCH 31.4 pg (25.7-33.7); MCHC 33.1 g/dl (32.0-36.0); MEAN CELL VOLUME 94.8 fl (80-96); MEAN PLT VOLUME 7.8 fl (7.5-11.1); NEUTROPHILS 91.1 % (42.8-82.8); PLATELET COUNT 193 K/MM3 (134-434); RDW 14.7 % (11.6-15.6); WHITE BLOOD COUNT 12.5 K/mm3 (4.0-10.0)
[2016-09-01] MEDS ORDERED: KETOROLAC TROMETHAMINE 15 MG/ML VIAL ONE (11:13)
[2016-09-01 11:24] LABS: INR 1.65 (0.82-1.09); PROTHROMBIN TIME (PATIENT) 18.3 SEC (9.98-11.88)
[2016-09-01 11:29] LABS: URINE APPEARANCE CLEAR; URINE BLOOD 2+ (NEGATIVE); URINE COLOR AMBER; URINE GLUCOSE (UA) NEGATIVE (NEGATIVE); URINE KETONE TRACE (NEGATIVE); URINE LEUK ESTERASE NEGATIVE (NEGATIVE); URINE NITRITE NEGATIVE (NEGATIVE); URINE PROTEIN 1+ (NEGATIVE); URINE UROBILINOGEN 4.0 E.U/dl mg/dL (0.2-1.0)
[2016-09-01 11:35] LABS: GRANULAR CASTS 5 /lpf; URINE HYALINE CAST 1 /lpf; URINE RBC 1 /hpf (0-3); URINE WBC 1 /hpf (3-5)
[2016-09-01 11:42] LABS: ANION GAP 10 (8-16); BILIRUBIN,TOTAL 1.2 mg/dL (0.2-1.0); CALCIUM 7.1 mg/dL (8.5-10.1); CO2 17 mmol/L (21-32); GLUCOSE,RANDOM 173 mg/dL (74-106); SGOT/AST 18 U/L (15-37); SGPT/ALT < 6 U/L (12-78); TOT PROT 5.8 g/dl (6.4-8.2)
[2016-09-01 11:49] LABS: ALK PHOS 172 U/L (45-117); TROPONIN I < 0.02 ng/ml (0.00-0.05)
[2016-09-01 11:50] LABS: THYROID STIMULATING HORMONE 1.27 uIU/ml (0.358-3.74)
[2016-09-01 12:06] LABS: SALICYLATE < 4.0 mg/dl (0.0-30.0)
[2016-09-01] MEDS: SODIUM CHLORIDE 1,000 ML IV SCH (12:15)
[2016-09-01 17:07] VITALS: BMI 31.8
[2016-09-01] MEDS ORDERED: ACETAMINOPHEN 325 MG TABLET (FP) PO PRN (18:39)
--- NOTE | 2016-09-01 18:39 | HP ---
Admitting History and Physical - Primary Care Physician PCP: Roasngela Alvarado - Admission History of Present Illness: This is a 71 year old female resident of [facility] assisted living [facility]) with a history of CAD, asthma/COPD, HTN, bipolar disorder, hypothyroidism, Parkinson's disease, diverticulitis, and hernia repair brought in to the ED by EMS following a fall. She states that she rolled out of bed and injured her knees and lower back. She denies head trauma or LOC. She is complaining of pain. - Past Medical History Cardiovascular: Yes: CAD, HTN, Hyperlipdemia Pulmonary: Yes: Asthma Renal/: Yes: Renal Inusuff Psych: Yes: Anxiety, Depression, Schizophrenia Endocrine: Yes: Hypothyroidism - Past Surgical History Past Surgical History: Yes: None - Smoking History Smoking history: Never smoked Have you smoked in the past 12 months: No Aproximately how many cigarettes per day: 0 - Alcohol/Substance Use Hx Alcohol Use: No History of Substance Use: reports: None - Social History ADL: Independent History of Recent Travel: No Home Medications - Allergies Allergies/Adverse Reactions: Allergies Allergy/AdvReac Type Severity Reaction Status Date / Time morphine Allergy Unknown Verified 09/01/16 10:26 Penicillins Allergy Unknown Verified 09/01/16 10:26 chocolate Allergy Unknown Uncoded 09/01/16 10:26 - Home Medications Home Medications: Ambulatory Orders Alendronate Na [Fosamax (Weekly)] 70 mg PO MO 04/19/16 Aripiprazole [Abilify -] 5 mg PO DAILY 04/19/16 Aspirin [ASA -] 81 mg PO DAILY 04/19/16 Atorvastatin Ca [Lipitor] 20 mg PO HS 04/19/16 Carbidopa/Levodopa [Carbidopa-Levodopa 25-250 Tab] 1 each PO TID 04/19/16 Citalopram Hydrobromide [Citalopram HBr] 10 mg PO DAILY 04/19/16 Clopidogrel Bisulfate [Plavix -] 75 mg PO DAILY 04/19/16 Gemfibrozil [Lopid] 600 mg PO BID 04/19/16 Levothyroxine [Synthroid -] 25 mcg PO DAILY 04/19/16 Metoprolol Tartrate [Lopressor -] 25 mg PO DAILY 04/19/16 Montelukast Na [Singulair -] 10 mg PO DAILY 04/19/16 Naproxen [Naprosyn -] 1,000 mg PO BID 04/19/16 Omeprazole 20 mg PO DAILY 04/19/16 Risperidone [Risperdal -] 2 mg PO DAILY 04/19/16 Solifenacin Succinate [Vesicare -] 10 mg PO DAILY 04/19/16 Budesonide [Pulmicort Flexhaler] 180 mcg PO BID 05/12/16 Lorazepam [Ativan] 0.25 mg PO BID 05/12/16 Risperidone [Risperdal] 8 mg PO HS 05/12/16 Acetaminophen [Mapap] 1,000 mg PO BID 09/01/16 Albuterol 0.083% Nebulizer Shavon [Ventolin 0.083% Nebulizer Soln -] 1 amp NEB TID 09/01/16 Fluticasone Prop 0.05% Nasal [Flonase -] 2 spray NS DAILY 09/01/16 Pantoprazole Sodium [Protonix -] 20 mg PO DAILY 09/01/16 Tiotropium [place] [Spiriva] 2 inh PO DAILY 09/01/16 Tramadol HCl [Ultram -] 50 mg PO TID 09/01/16 Physical Examination Vital Signs: Vital Signs Temperature 98.1 F 09/01/16 10:27 Pulse Rate 73 09/01/16 16:30 Respiratory Rate 18 09/01/16 16:30 Blood Pressure 112/46 09/01/16 16:30 O2 Sat by Pulse Oximetry (%) 94 L 09/01/16 16:30 Constitutional: Yes: No Distress HENT: Yes: Atraumatic Neck: Yes: Supple Cardiovascular: Yes: Regular Rate and Rhythm Respiratory: Yes: CTA Bilaterally Gastrointestinal: Yes: Normal Bowel Sounds Extremities: Yes: WNL Neurological: Yes: Alert, Oriented Imaging - Results X-ray: Report Reviewed Problem List - Problems (1) Altered mental status Assessment/Plan: PT AWAKE LIAT VILLEDA NOW WILL ADJUST MEDS Code(s): R41.82 - ALTERED MENTAL STATUS, UNSPECIFIED Qualifiers: Altered mental status type: disorientation Qualified Code(s): R41.0 - Disorientation, unspecified (2) Anxiety Assessment/Plan: ON MEDS STABLE Code(s): F41.9 - ANXIETY DISORDER, UNSPECIFIED (3) GERD (gastroesophageal reflux disease) Assessment/Plan: ON MEDS Code(s): K21.9 - GASTRO-ESOPHAGEAL REFLUX DISEASE WITHOUT ESOPHAGITIS Qualifiers: (4) Hyperlipidemia Assessment/Plan: ON MEDS Code(s): E78.5 - HYPERLIPIDEMIA, UNSPECIFIED (5) Hypothyroid Assessment/Plan: ON MEDS Code(s): E03.9 - HYPOTHYROIDISM, UNSPECIFIED (6) Parkinsonism Assessment/Plan: ON MEDS STABLE Code(s): G20 - PARKINSON'S DISEASE (7) Low back pain Code(s): M54.5 - LOW BACK PAIN Assessment/Plan Laboratory Tests 09/01/16 09/01/16 09/01/16 11:01 11:01 11:01 WBC 12.5 H D RBC 3.52 L Hgb 11.1 D Hct 33.4 MCV 94.8 MCH 31.4 MCHC 33.1 RDW 14.7 Plt Count 193 MPV 7.8 Neutrophils % 91.1 H D Lymphocytes % 3.5 L D Monocytes % 4.9 Eosinophils % 0.4 D Basophils % 0.1 INR 1.65 H D Sodium Potassium Chloride Carbon Dioxide Anion Gap BUN Creatinine Creat Clearance w eGFR Random Glucose Calcium Total Bilirubin AST ALT Alkaline Phosphatase Ammonia Creatine Kinase Creatine Kinase Index CK-MB (CK-2) Troponin I Total Protein Albumin TSH Urine Color Dotty Urine Appearance Clear Urine pH 5.0 Ur Specific [place] >= 1.030 H Urine Protein 1+ H Urine Glucose (UA) Negative Urine Ketones Trace H Urine Blood 2+ H Urine Nitrite Negative Urine Bilirubin 2.0 Urine Urobilinogen 4.0 e.u/dl H Ur Leukocyte Esterase Negative Urine RBC 1 Urine WBC 1 Ur Epithelial Cells Rare Hyaline Casts 1 Granular Casts 5 Salicylates Acetaminophen 09/01/16 09/01/16 09/01/16 11:01 11:01 11:01 WBC RBC Hgb Hct MCV MCH MCHC RDW Plt Count MPV Neutrophils % Lymphocytes % Monocytes % Eosinophils % Basophils % INR Sodium Cancelled 134 L Potassium Cancelled 4.4 Chloride Cancelled 107 Carbon Dioxide Cancelled 17 L D Anion Gap Cancelled 10 BUN Cancelled 43 H D Creatinine Cancelled 2.0 H D Creat Clearance w eGFR Cancelled 24.63 Random Glucose Cancelled 173 H D Calcium Cancelled 7.1 L Total Bilirubin Cancelled 1.2 H D AST Cancelled 18 D ALT Cancelled < 6 L D Alkaline Phosphatase Cancelled 172 H D Ammonia Creatine Kinase Cancelled 220 H D Creatine Kinase Index 2.2 CK-MB (CK-2) 4.912 H Troponin I Cancelled < 0.02 Total Protein Cancelled 5.8 L Albumin Cancelled 3.0 L TSH 1.27 D Urine Color Urine Appearance Urine pH Ur Specific [place] Urine Protein Urine Glucose (UA) Urine Ketones Urine Blood Urine Nitrite Urine Bilirubin Urine Urobilinogen Ur Leukocyte Esterase Urine RBC Urine WBC Ur Epithelial Cells Hyaline Casts Granular Casts Salicylates < 4.0 Acetaminophen 5.7 L 09/01/16 11:08 WBC RBC Hgb Hct MCV MCH MCHC RDW Plt Count MPV Neutrophils % Lymphocytes % Monocytes % Eosinophils % Basophils % INR Sodium Potassium Chloride Carbon Dioxide Anion Gap BUN Creatinine Creat Clearance w eGFR Random Glucose Calcium Total Bilirubin AST ALT Alkaline Phosphatase Ammonia 32.0 Creatine Kinase Creatine Kinase Index CK-MB (CK-2) Troponin I Total Protein Albumin TSH Urine Color Urine Appearance Urine pH Ur Specific [place] Urine Protein Urine Glucose (UA) Urine Ketones Urine Blood Urine Nitrite Urine Bilirubin Urine Urobilinogen Ur Leukocyte Esterase Urine RBC Urine WBC Ur Epithelial Cells Hyaline Casts Granular Casts Salicylates Acetaminophen Active Medications Generic Name Dose Route Start Last Admin Trade Name Freq PRN Reason Stop Dose Admin Aripiprazole 5 mg 09/02/16 10:00 Abilify PO DAILY NITESH Aspirin 81 mg 09/02/16 10:00 Asa - PO DAILY NITESH Atorvastatin Calcium 20 mg 09/01/16 22:00 Lipitor - PO HS NITESH Carbidopa/Levodopa 1 each 09/01/16 22:00 Sinemet 25/250 - PO TID [facility] Citalopram Hydrobromide 10 mg 09/02/16 10:00 Celexa - PO DAILY NITESH Clopidogrel Bisulfate 75 mg 09/02/16 10:00 Plavix - PO DAILY NITESH Fluticasone Propionate 2 spray 09/02/16 10:00 Flonase - NS DAILY NITESH Gemfibrozil 600 mg 09/01/16 22:00 Lopid - PO BID NITESH Heparin Sodium (Porcine) 5,000 unit 09/01/16 22:00 Heparin - SQ BID NITESH Sodium Chloride 1,000 mls @ 100 mls/hr 09/01/16 12:15 09/01/16 12:15 Normal Saline - IV 100 mls/hr ASDIR NITESH Administration Levothyroxine Sodium 25 mcg 09/02/16 10:00 Synthroid - PO DAILY NITESH Meclizine HCl 12.5 mg 09/01/16 22:00 Antivert - PO BID NITESH Metoprolol Tartrate 25 mg 09/02/16 10:00 Lopressor - PO DAILY NITESH Montelukast Sodium 10 mg 09/02/16 10:00 Singulair - PO DAILY NITESH Non-Formulary Medication 180 mcg 09/01/16 22:00 Budesonide [Pulmicort Flexhaler] PO BID [facility] Non-Formulary Medication 8 mg 09/01/16 22:00 Risperidone [Risperdal] PO HS NITESH Olanzapine 5 mg 09/01/16 22:00 Zyprexa - PO HS NITESH Pantoprazole Sodium 20 mg 09/02/16 10:00 Protonix - PO DAILY NITESH
[2016-09-01] MEDS ORDERED: CEFTRIAXONE 1 GM in DEXTROSE 5%-WATER - 100 ML IVPB SCH (19:15)
[2016-09-01] MEDS: cefTRIAXone 1 GM/50 ML BAG (PRE-DOCKED) IVPB SCH (20:00)
[2016-09-01] MEDS: OLANZapine 5 MG TABLET PO SCH (21:24)
[2016-09-01] MEDS: ATORVASTATIN CA 20 MG TABLET (FP) PO SCH (21:24)
[2016-09-01] MEDS: HEPARIN NA (PORCINE) 5,000 UNITS/ML 1ML VIAL SQ SCH (21:24)
[2016-09-01] MEDS: CARBIDOPA/LEVODOPA 25/250 TABLET (FP) PO SCH (21:24)
[2016-09-01] MEDS: MECLIZINE HCL 12.5 MG TABLET PO SCH (21:24)
[2016-09-01] MEDS: risperiDONE 1 MG TABLET (FP) PO SCH (21:25)
[2016-09-01] MEDS: GEMFIBROZIL 600 MG TABLET (FP) PO SCH (21:25)
[2016-09-01] MEDS: MOMETASONE FUROATE 220 MCG/IH INHALER IH SCH (21:25)
[2016-09-02] MEDS: SODIUM CHLORIDE 1,000 ML IV SCH ×4 (02:13→20:03)
[2016-09-02] MEDS: LEVOTHYROXINE NA 25 MCG TABLET (FP) PO SCH (06:24)
[2016-09-02] MEDS: CARBIDOPA/LEVODOPA 25/250 TABLET (FP) PO SCH ×3 (06:24→21:40)
[2016-09-02] MEDS ORDERED: PT OWN MED DRAWER 7, Y5N ONE (09:51)
[2016-09-02] MEDS ORDERED: CITALOPRAM HYDROBROMIDE 10 MG TABLET (FP) PO SCH (10:00)
[2016-09-02] MEDS: HEPARIN NA (PORCINE) 5,000 UNITS/ML 1ML VIAL SQ SCH ×2 (10:02→21:39)
[2016-09-02] MEDS: GEMFIBROZIL 600 MG TABLET (FP) PO SCH ×2 (10:02→21:40)
[2016-09-02] MEDS: METOPROLOL TARTRATE 25 MG TABLET (FP) PO SCH (10:02)
[2016-09-02] MEDS: MONTELUKAST NA 10 MG TABLET PO SCH (10:02)
[2016-09-02] MEDS: ASPIRIN 81 MG CHEWABLE TABLETS PO SCH (10:02)
[2016-09-02] MEDS: MECLIZINE HCL 12.5 MG TABLET PO SCH (10:02)
[2016-09-02] MEDS: CLOPIDOGREL BISULFATE 75 MG TABLET (FP) PO SCH (10:02)
[2016-09-02] MEDS: cefTRIAXone 1 GM/50 ML BAG (PRE-DOCKED) IVPB SCH (10:02)
[2016-09-02] MEDS: PANTOPRAZOLE 20 MG TABLET (FP) PO SCH (10:02)
[2016-09-02] MEDS: FLUTICASONE PROP 0.05% 16 GM NASAL SPRAY NS SCH (10:03)
[2016-09-02] MEDS: ARIPiprazole 5 MG TABLET (FP) PO SCH (11:11)
--- NOTE | 2016-09-02 17:33 | PN ---
Progress Note, Physician History of Present Illness: DOING WELL - Current Medication List Current Medications: Active Medications Acetaminophen (Tylenol -) 650 mg PO Q6H PRN PRN Reason: FEVER OR PAIN Last Admin: 09/02/16 10:13 Dose: 650 mg Aripiprazole (Abilify) 5 mg PO DAILY [facility] Last Admin: 09/02/16 11:11 Dose: Not Given Aspirin (Asa -) 81 mg PO DAILY [facility] Last Admin: 09/02/16 10:02 Dose: 81 mg Atorvastatin Calcium (Lipitor -) 20 mg PO HS [facility] Last Admin: 09/01/16 21:24 Dose: 20 mg Carbidopa/Levodopa (Sinemet 25/250 -) 1 each PO TID [facility] Last Admin: 09/02/16 15:06 Dose: 1 each Ceftriaxone Sodium (Rocephin 1gm Ivpb (Pre-Docked)) 1 gm IVPB DAILY [facility] Last Admin: 09/02/16 10:02 Dose: 1 gm Citalopram Hydrobromide (Celexa -) 10 mg PO DAILY [facility] Last Admin: 09/02/16 11:11 Dose: Not Given Clopidogrel Bisulfate (Plavix -) 75 mg PO DAILY [facility] Last Admin: 09/02/16 10:02 Dose: 75 mg Fluticasone Propionate (Flonase -) 2 spray NS DAILY [facility] Last Admin: 09/02/16 10:03 Dose: Not Given Gemfibrozil (Lopid -) 600 mg PO BID [facility] Last Admin: 09/02/16 10:02 Dose: 600 mg Heparin Sodium (Porcine) (Heparin -) 5,000 unit SQ BID [facility] Last Admin: 09/02/16 10:02 Dose: 5,000 unit Sodium Chloride (Normal Saline -) 1,000 mls @ 100 mls/hr IV ASDIR [facility] Last Admin: 09/02/16 14:59 Dose: Not Given Levothyroxine Sodium (Synthroid -) 25 mcg PO DAILY@0700 [facility] Last Admin: 09/02/16 06:24 Dose: 25 mcg Meclizine HCl (Antivert -) 12.5 mg PO BID [facility] Last Admin: 09/02/16 10:02 Dose: 12.5 mg Metoprolol Tartrate (Lopressor -) 25 mg PO DAILY [facility] Last Admin: 09/02/16 10:02 Dose: 25 mg Mometasone Furoate (Asmanex 220mcg -) 1 puff IH [facility] Last Admin: 09/01/16 21:25 Dose: 1 puff Montelukast Sodium (Singulair -) 10 mg PO DAILY [facility] Last Admin: 09/02/16 10:02 Dose: 10 mg Olanzapine (Zyprexa -) 5 mg PO [facility] Last Admin: 09/01/16 21:24 Dose: 5 mg Pantoprazole Sodium (Protonix -) 20 mg PO DAILY [facility] Last Admin: 09/02/16 10:02 Dose: 20 mg Risperidone (Risperdal -) 8 mg PO [facility] Last Admin: 09/01/16 21:25 Dose: 8 mg - Objective Vital Signs: Vital Signs Temperature 98.4 F 09/02/16 15:14 Pulse Rate 72 09/02/16 15:14 Respiratory Rate 22 09/02/16 15:14 Blood Pressure 110/48 09/02/16 15:14 O2 Sat by Pulse Oximetry (%) 96 09/02/16 09:00 Constitutional: Yes: No Distress HENT: Yes: Atraumatic Neck: Yes: Supple Cardiovascular: Yes: Regular Rate and Rhythm Respiratory: Yes: CTA Bilaterally Gastrointestinal: Yes: Normal Bowel Sounds Extremities: Yes: WNL Neurological: Yes: Alert, Oriented Labs: INR, PTT INR 1.65 (0.82-1.09) H D 09/01/16 11:01 Problem List - Problems (1) Altered mental status Assessment/Plan: PT AWAKE AND ALERT NOW WILL ADJUST MEDS Code(s): R41.82 - ALTERED MENTAL STATUS, UNSPECIFIED Qualifiers: Altered mental status type: disorientation Qualified Code(s): R41.0 - Disorientation, unspecified (2) Anxiety Assessment/Plan: ON MEDS STABLE Code(s): F41.9 - ANXIETY DISORDER, UNSPECIFIED (3) GERD (gastroesophageal reflux disease) Assessment/Plan: ON MEDS Code(s): K21.9 - GASTRO-ESOPHAGEAL REFLUX DISEASE WITHOUT ESOPHAGITIS Qualifiers: (4) Hyperlipidemia Assessment/Plan: ON MEDS Code(s): E78.5 - HYPERLIPIDEMIA, UNSPECIFIED (5) Hypothyroid Assessment/Plan: ON MEDS Code(s): E03.9 - HYPOTHYROIDISM, UNSPECIFIED (6) Parkinsonism Assessment/Plan: ON MEDS STABLE Code(s): G20 - PARKINSON'S DISEASE (7) Low back pain Code(s): M54.5 - LOW BACK PAIN Assessment/Plan WILL GET PSYCH CONSULT TO REVIEW MEDS
[2016-09-02] MEDS: OLANZapine 5 MG TABLET PO SCH (21:39)
[2016-09-02] MEDS: ATORVASTATIN CA 20 MG TABLET (FP) PO SCH (21:39)
[2016-09-02] MEDS: MOMETASONE FUROATE 220 MCG/IH INHALER IH SCH (21:39)
[2016-09-02] MEDS: risperiDONE 1 MG TABLET (FP) PO SCH (21:40)
[2016-09-03] MEDS: SODIUM CHLORIDE 1,000 ML IV SCH ×2 (06:03→15:18)
[2016-09-03] MEDS: CARBIDOPA/LEVODOPA 25/250 TABLET (FP) PO SCH ×3 (06:04→23:03)
[2016-09-03] MEDS: LEVOTHYROXINE NA 25 MCG TABLET (FP) PO SCH (06:04)
[2016-09-03 08:57] LABS: BASOPHIL 0.1 % (0-2.0); EOSINOPHIL 1.4 % (0-4.5); MCH 31.7 pg (25.7-33.7); MCHC 33.6 g/dl (32.0-36.0); MEAN CELL VOLUME 94.3 fl (80-96); NEUTROPHILS 86.5 % (42.8-82.8); PLATELET COUNT 214 K/MM3 (134-434); RDW 14.8 % (11.6-15.6); WHITE BLOOD COUNT 10.7 K/mm3 (4.0-10.0)
[2016-09-03] MEDS ORDERED: PT OWN MED DRAWER 7, Y5N ONE ×5 (09:16→22:21)
[2016-09-03 09:24] LABS: ALBUMIN 2.6 g/dl (3.4-5.0); ANION GAP 11 (8-16); CALCIUM 7.3 mg/dL (8.5-10.1); CO2 14 mmol/L (21-32); CREATININE 0.7 mg/dL (0.55-1.02); GLUCOSE,RANDOM 103 mg/dL (74-106); SGOT/AST 23 U/L (15-37); SGPT/ALT < 6 U/L (12-78)
[2016-09-03 09:26] LABS: ALK PHOS 173 U/L (45-117); BILIRUBIN,TOTAL 0.6 mg/dL (0.2-1.0); TOT PROT 5.5 g/dl (6.4-8.2)
[2016-09-03] MEDS: ARIPiprazole 5 MG TABLET (FP) PO SCH (09:56)
[2016-09-03] MEDS: ASPIRIN 81 MG CHEWABLE TABLETS PO SCH (10:02)
[2016-09-03] MEDS: METOPROLOL TARTRATE 25 MG TABLET (FP) PO SCH (10:02)
[2016-09-03] MEDS: MONTELUKAST NA 10 MG TABLET PO SCH (10:02)
[2016-09-03] MEDS: PANTOPRAZOLE 20 MG TABLET (FP) PO SCH (10:02)
[2016-09-03] MEDS: CLOPIDOGREL BISULFATE 75 MG TABLET (FP) PO SCH (10:02)
[2016-09-03] MEDS: GEMFIBROZIL 600 MG TABLET (FP) PO SCH ×2 (10:03→23:03)
[2016-09-03] MEDS: HEPARIN NA (PORCINE) 5,000 UNITS/ML 1ML VIAL SQ SCH ×2 (10:03→23:03)
[2016-09-03] MEDS: FLUTICASONE PROP 0.05% 16 GM NASAL SPRAY NS SCH (10:04)
--- NOTE | 2016-09-03 14:44 | CON.PSY ---
Psychiatry Consult Chief Complaint: I am ok mentally. - Previous Psychiatric Treatment Outpatient: Less than 6 mos ago Inpatient: One prior admission - Previous Substance Abuse Treatment Outpatient: None Inpatient: None - Reason for Previous Treatment Reason for Previous Treatment: Psychotic Episode - Current Medications Current Medications: Active Medications Acetaminophen (Tylenol -) 650 mg PO Q6H PRN PRN Reason: FEVER OR PAIN Last Admin: 09/02/16 10:13 Dose: 650 mg Aripiprazole (Abilify) 5 mg PO DAILY [facility] Last Admin: 09/03/16 09:56 Dose: Not Given Aspirin (Asa -) 81 mg PO DAILY [facility] Last Admin: 09/03/16 10:02 Dose: 81 mg Atorvastatin Calcium (Lipitor -) 20 mg PO HS [facility] Last Admin: 09/02/16 21:39 Dose: 20 mg Carbidopa/Levodopa (Sinemet 25/250 -) 1 each PO TID [facility] Last Admin: 09/03/16 06:04 Dose: 1 each Clopidogrel Bisulfate (Plavix -) 75 mg PO DAILY [facility] Last Admin: 09/03/16 10:02 Dose: 75 mg Fluticasone Propionate (Flonase -) 2 spray NS DAILY [facility] Last Admin: 09/03/16 10:04 Dose: Not Given Gemfibrozil (Lopid -) 600 mg PO BID [facility] Last Admin: 09/03/16 10:03 Dose: 600 mg Heparin Sodium (Porcine) (Heparin -) 5,000 unit SQ BID [facility] Last Admin: 09/03/16 10:03 Dose: 5,000 unit Sodium Chloride (Normal Saline -) 1,000 mls @ 100 mls/hr IV ASDIR [facility] Last Admin: 09/03/16 06:03 Dose: 100 mls/hr Levothyroxine Sodium (Synthroid -) 25 mcg PO DAILY@0700 [facility] Last Admin: 09/03/16 06:04 Dose: 25 mcg Metoprolol Tartrate (Lopressor -) 25 mg PO DAILY [facility] Last Admin: 09/03/16 10:02 Dose: 25 mg Mometasone Furoate (Asmanex 220mcg -) 1 puff IH HS [facility] Last Admin: 09/02/16 21:39 Dose: 1 puff Montelukast Sodium (Singulair -) 10 mg PO DAILY [facility] Last Admin: 09/03/16 10:02 Dose: 10 mg Olanzapine (Zyprexa -) 5 mg PO [facility] Last Admin: 09/02/16 21:39 Dose: 5 mg Pantoprazole Sodium (Protonix -) 20 mg PO DAILY [facility] Last Admin: 09/03/16 10:02 Dose: 20 mg Risperidone (Risperdal -) 8 mg PO HS [facility] Last Admin: 09/02/16 21:40 Dose: 8 mg - Allergies Allergies: Allergies Allergy/AdvReac Type Severity Reaction Status Date / Time morphine Allergy Unknown Verified 09/01/16 10:26 Penicillins Allergy Unknown Verified 09/01/16 10:26 chocolate Allergy Unknown Uncoded 09/01/16 10:26 - Current Living Status Usual Living Arrangement: Intermediate - Current Mental Status Evaluation Appearance: Well Groomed Attitude: Cooperative - Affect Affect: Constrictive Appropriateness: Appropriate to Content - Mood Mood: Euthymic - Speech/Language Expressive: Coherent Receptive: Age Appropriate Comprehension of Spoken Words - Psychomotor Activity Psychomotor Activity: Slowed - Thought Process Thought Process: Circumstantial - Thought Content Hallucinations: Absent Delusions: Absent - Self Perception Self Perception: No Impairment - Cognition Attention: Alert Orientation: Time Memory, Immediate Recall: Intact Memory, Short Term: 2/3 Memory, Remote with Promptin/3 - Concentration Serial Sevens Intact: No Simple Calculations Intact: No - Abstraction Proverb Interpretation: Intact Judgement: Intact - Insight Insight: Intact - Impulse Control Impulse Control: Minimally Impaired - Suicidal Ideation Suicidal Ideation: No - Homicidal Ideation Homicidal Ideation: No Assessment/Plan 1) D/C zyprexa.
--- NOTE | 2016-09-03 18:59 | PN ---
Progress Note, Physician History of Present Illness: DOING WELL - Current Medication List Current Medications: Active Medications Acetaminophen (Tylenol -) 650 mg PO Q6H PRN PRN Reason: FEVER OR PAIN Last Admin: 09/02/16 10:13 Dose: 650 mg Aripiprazole (Abilify) 5 mg PO DAILY [facility] Last Admin: 09/03/16 09:56 Dose: Not Given Aspirin (Asa -) 81 mg PO DAILY [facility] Last Admin: 09/03/16 10:02 Dose: 81 mg Atorvastatin Calcium (Lipitor -) 20 mg PO HS [facility] Last Admin: 09/02/16 21:39 Dose: 20 mg Carbidopa/Levodopa (Sinemet 25/250 -) 1 each PO TID [facility] Last Admin: 09/03/16 15:18 Dose: 1 each Clopidogrel Bisulfate (Plavix -) 75 mg PO DAILY [facility] Last Admin: 09/03/16 10:02 Dose: 75 mg Fluticasone Propionate (Flonase -) 2 spray NS DAILY [facility] Last Admin: 09/03/16 10:04 Dose: Not Given Gemfibrozil (Lopid -) 600 mg PO BID [facility] Last Admin: 09/03/16 10:03 Dose: 600 mg Heparin Sodium (Porcine) (Heparin -) 5,000 unit SQ BID [facility] Last Admin: 09/03/16 10:03 Dose: 5,000 unit Levothyroxine Sodium (Synthroid -) 25 mcg PO DAILY@0700 [facility] Last Admin: 09/03/16 06:04 Dose: 25 mcg Metoprolol Tartrate (Lopressor -) 25 mg PO DAILY [facility] Last Admin: 09/03/16 10:02 Dose: 25 mg Mometasone Furoate (Asmanex 220mcg -) 1 puff IH HS [facility] Last Admin: 09/02/16 21:39 Dose: 1 puff Montelukast Sodium (Singulair -) 10 mg PO DAILY [facility] Last Admin: 09/03/16 10:02 Dose: 10 mg Pantoprazole Sodium (Protonix -) 20 mg PO DAILY [facility] Last Admin: 09/03/16 10:02 Dose: 20 mg Risperidone (Risperdal -) 2 mg PO BID [facility] - Objective Vital Signs: Vital Signs Temperature 98.5 F 09/03/16 15:26 Pulse Rate 75 09/03/16 15:26 Respiratory Rate 22 09/03/16 15:26 Blood Pressure 137/63 09/03/16 15:26 O2 Sat by Pulse Oximetry (%) 94 L 09/03/16 10:00 Constitutional: Yes: No Distress HENT: Yes: Atraumatic Neck: Yes: Supple Cardiovascular: Yes: Regular Rate and Rhythm Respiratory: Yes: CTA Bilaterally Gastrointestinal: Yes: Normal Bowel Sounds Extremities: Yes: WNL Neurological: Yes: Alert, Oriented Labs: CBC, BMP 09/03/16 06:35 09/03/16 06:35 INR, PTT INR 1.65 (0.82-1.09) H D 09/01/16 11:01 Problem List - Problems (1) Altered mental status Assessment/Plan: DOING WELL Code(s): R41.82 - ALTERED MENTAL STATUS, UNSPECIFIED Qualifiers: Altered mental status type: disorientation Qualified Code(s): R41.0 - Disorientation, unspecified (2) Anxiety Assessment/Plan: ON MEDS STABLE Code(s): F41.9 - ANXIETY DISORDER, UNSPECIFIED (3) GERD (gastroesophageal reflux disease) Assessment/Plan: ON MEDS Code(s): K21.9 - GASTRO-ESOPHAGEAL REFLUX DISEASE WITHOUT ESOPHAGITIS Qualifiers: (4) Hyperlipidemia Assessment/Plan: ON MEDS Code(s): E78.5 - HYPERLIPIDEMIA, UNSPECIFIED (5) Hypothyroid Assessment/Plan: ON MEDS Code(s): E03.9 - HYPOTHYROIDISM, UNSPECIFIED (6) Parkinsonism Assessment/Plan: ON MEDS STABLE Code(s): G20 - PARKINSON'S DISEASE (7) Low back pain Code(s): M54.5 - LOW BACK PAIN Assessment/Plan DC IN AM IF STABLE DC MECLIZINE, ZYPREXA, REDUCE DOSE OF RISPERDAL
[2016-09-03] MEDS: MOMETASONE FUROATE 220 MCG/IH INHALER IH SCH ×2 (23:02→23:14)
[2016-09-03] MEDS: risperiDONE 1 MG TABLET (FP) PO SCH (23:03)
[2016-09-03] MEDS: ATORVASTATIN CA 20 MG TABLET (FP) PO SCH (23:03)
[2016-09-04] MEDS: CARBIDOPA/LEVODOPA 25/250 TABLET (FP) PO SCH ×2 (06:48→14:11)
[2016-09-04] MEDS: LEVOTHYROXINE NA 25 MCG TABLET (FP) PO SCH (06:48)
[2016-09-04] MEDS ORDERED: PT OWN MED DRAWER 7, Y5N ONE (10:18)
[2016-09-04] MEDS: ASPIRIN 81 MG CHEWABLE TABLETS PO SCH (10:23)
[2016-09-04] MEDS: PANTOPRAZOLE 20 MG TABLET (FP) PO SCH (10:23)
[2016-09-04] MEDS: GEMFIBROZIL 600 MG TABLET (FP) PO SCH (10:24)
[2016-09-04] MEDS: HEPARIN NA (PORCINE) 5,000 UNITS/ML 1ML VIAL SQ SCH (10:24)
[2016-09-04] MEDS: MONTELUKAST NA 10 MG TABLET PO SCH (10:24)
[2016-09-04] MEDS: METOPROLOL TARTRATE 25 MG TABLET (FP) PO SCH (10:24)
[2016-09-04] MEDS: risperiDONE 1 MG TABLET (FP) PO SCH (10:24)
[2016-09-04] MEDS: ARIPiprazole 5 MG TABLET (FP) PO SCH (10:24)
[2016-09-04] MEDS: CLOPIDOGREL BISULFATE 75 MG TABLET (FP) PO SCH (10:24)
[2016-09-04] MEDS: FLUTICASONE PROP 0.05% 16 GM NASAL SPRAY NS SCH (10:28)
[2016-09-04 10:40] VITALS: TEMP 98.2
--- NOTE | 2016-09-04 13:54 | PN ---
Progress Note, Physician History of Present Illness: drowsy but talking sitting on commode - Current Medication List Current Medications: Active Medications Acetaminophen (Tylenol -) 650 mg PO Q6H PRN PRN Reason: FEVER OR PAIN Last Admin: 09/02/16 10:13 Dose: 650 mg Aripiprazole (Abilify) 5 mg PO DAILY [facility] Last Admin: 09/04/16 10:24 Dose: 5 mg Aspirin (Asa -) 81 mg PO DAILY [facility] Last Admin: 09/04/16 10:23 Dose: 81 mg Atorvastatin Calcium (Lipitor -) 20 mg PO HS [facility] Last Admin: 09/03/16 23:03 Dose: 20 mg Carbidopa/Levodopa (Sinemet 25/250 -) 1 each PO TID [facility] Last Admin: 09/04/16 06:48 Dose: 1 each Clopidogrel Bisulfate (Plavix -) 75 mg PO DAILY [facility] Last Admin: 09/04/16 10:24 Dose: 75 mg Fluticasone Propionate (Flonase -) 2 spray NS DAILY [facility] Last Admin: 09/04/16 10:28 Dose: 2 spray Gemfibrozil (Lopid -) 600 mg PO BID [facility] Last Admin: 09/04/16 10:24 Dose: 600 mg Heparin Sodium (Porcine) (Heparin -) 5,000 unit SQ BID [facility] Last Admin: 09/04/16 10:24 Dose: 5,000 unit Levothyroxine Sodium (Synthroid -) 25 mcg PO DAILY@0700 [facility] Last Admin: 09/04/16 06:48 Dose: 25 mcg Metoprolol Tartrate (Lopressor -) 25 mg PO DAILY [facility] Last Admin: 09/04/16 10:24 Dose: 25 mg Mometasone Furoate (Asmanex 220mcg -) 1 puff IH [facility] Last Admin: 09/03/16 23:14 Dose: Not Given Montelukast Sodium (Singulair -) 10 mg PO DAILY [facility] Last Admin: 09/04/16 10:24 Dose: 10 mg Pantoprazole Sodium (Protonix -) 20 mg PO DAILY [facility] Last Admin: 09/04/16 10:23 Dose: 20 mg Risperidone (Risperdal -) 2 mg PO BID [facility] Last Admin: 09/04/16 10:24 Dose: 2 mg - Objective Vital Signs: Vital Signs Temperature 98.2 F 09/04/16 10:26 Pulse Rate 63 09/04/16 10:26 Respiratory Rate 18 09/04/16 10:26 Blood Pressure 143/53 09/04/16 10:26 O2 Sat by Pulse Oximetry (%) 96 09/04/16 10:20 Constitutional: Yes: No Distress HENT: Yes: Atraumatic Neck: Yes: Supple Cardiovascular: Yes: Regular Rate and Rhythm Respiratory: Yes: CTA Bilaterally Gastrointestinal: Yes: Normal Bowel Sounds Extremities: Yes: WNL Neurological: Yes: Other (DROWSY BUT TALKING AND OPENS HER EYES SAYING MEDICATION MAKES HER DROWSY) Labs: CBC, BMP 09/03/16 06:35 09/03/16 06:35 INR, PTT INR 1.65 (0.82-1.09) H D 09/01/16 11:01 Problem List - Problems (1) Altered mental status Assessment/Plan: ADJUSTING MDICATIONS Code(s): R41.82 - ALTERED MENTAL STATUS, UNSPECIFIED Qualifiers: Altered mental status type: disorientation Qualified Code(s): R41.0 - Disorientation, unspecified (2) Anxiety Assessment/Plan: ON MEDS STABLE Code(s): F41.9 - ANXIETY DISORDER, UNSPECIFIED (3) GERD (gastroesophageal reflux disease) Assessment/Plan: ON MEDS Code(s): K21.9 - GASTRO-ESOPHAGEAL REFLUX DISEASE WITHOUT ESOPHAGITIS Qualifiers: (4) Hyperlipidemia Assessment/Plan: ON MEDS Code(s): E78.5 - HYPERLIPIDEMIA, UNSPECIFIED (5) Hypothyroid Assessment/Plan: ON MEDS Code(s): E03.9 - HYPOTHYROIDISM, UNSPECIFIED (6) Parkinsonism Code(s): G20 - PARKINSON'S DISEASE (7) Low back pain Code(s): M54.5 - LOW BACK PAIN Assessment/Plan pt will go to short term rehab today
[2016-09-04 15:57] LABS: FREE T4 0.73 ng/dl (0.76-1.46); THYROID STIMULATING HORMONE 0.95 uIU/ml (0.358-3.74)
[2016-09-04 15:59] VITALS: BP 129/54; PULSE 72
--- NOTE | 2016-09-04 17:14 | DS ---
Physical Examination Vital Signs: Vital Signs Temperature 98.2 F 09/04/16 14:57 Pulse Rate 72 09/04/16 14:57 Respiratory Rate 18 09/04/16 14:57 Blood Pressure 129/54 09/04/16 14:57 O2 Sat by Pulse Oximetry (%) 96 09/04/16 10:20 Labs: CBC, BMP 09/03/16 06:35 09/03/16 06:35 Discharge Summary Reason For Visit: LETHARGY,AMS,ACUTE KIDNEY INJURY Current Active Problems Acute kidney injury (Acute) Altered mental status (Acute) Dehydration (Acute) Diarrhea (Acute) Lethargy (Acute) Anxiety (Chronic) GERD (gastroesophageal reflux disease) (Chronic) Hyperlipidemia (Chronic) Hypothyroid (Chronic) Parkinsonism (Chronic) - Instructions Diet, Activity, Other Instructions: DC MECLIZINE AND ZYPREXA, ativan, omeprazole reduce dose of risperdal see md at rehab to follow up and adjust dose Referrals: Filomena Godoy MD [Staff Physician] - Rosangela Alvarado MD [Staff Physician] - Monica Jimenez MD [Primary Care Provider] - - Home Medications Comprehensive Discharge Medication List: Ambulatory Orders Alendronate Na [Fosamax (Weekly)] 70 mg PO MO 04/19/16 Aripiprazole [Abilify -] 5 mg PO DAILY 04/19/16 Aspirin [ASA -] 81 mg PO DAILY 04/19/16 Atorvastatin Ca [Lipitor] 20 mg PO HS 04/19/16 Carbidopa/Levodopa [Carbidopa-Levodopa 25-250 Tab] 1 each PO TID 04/19/16 Clopidogrel Bisulfate [Plavix -] 75 mg PO DAILY 04/19/16 Gemfibrozil [Lopid] 600 mg PO BID 04/19/16 Levothyroxine [Synthroid -] 25 mcg PO DAILY 04/19/16 Metoprolol Tartrate [Lopressor -] 25 mg PO DAILY 04/19/16 Montelukast Na [Singulair -] 10 mg PO DAILY 04/19/16 Naproxen [Naprosyn -] 1,000 mg PO BID 04/19/16 Solifenacin Succinate [Vesicare -] 10 mg PO DAILY 04/19/16 Budesonide [Pulmicort Flexhaler] 180 mcg PO BID 05/12/16 Acetaminophen [Mapap] 1,000 mg PO BID 09/01/16 Albuterol 0.083% Nebulizer Shavon [Ventolin 0.083% Nebulizer Soln -] 1 amp NEB TID 09/01/16 Fluticasone Prop 0.05% Nasal [Flonase -] 2 spray NS DAILY 09/01/16 Pantoprazole Sodium [Protonix -] 20 mg PO DAILY 09/01/16 Tiotropium [place] [Spiriva] 2 inh PO DAILY 09/01/16 Tramadol HCl [Ultram -] 50 mg PO TID 09/01/16 Risperidone [Risperdal -] 2 mg PO BID #60 tablet 09/04/16 dc to snf
== END 2016-09-04 19:02 | DRG 683 ==
LOC: JER 10:07 → JERBED 15:22 → J5S 16:54
PROVIDERS: ADMIT Internal Medicine; ATTEND Internal Medicine
DX: N17.9 Acute kidney failure, unspecified (principal); F31.89 Other bipolar disorder; F20.89 Other schizophrenia; K21.9 Gastro-esophageal reflux disease without esophagitis; E78.5 Hyperlipidemia, unspecified; E03.9 Hypothyroidism, unspecified; G20 Parkinson's disease; M54.5 Low back pain; I25.10 Atherosclerotic heart disease of native coronary artery without angina pectoris; J45.909 Unspecified asthma, uncomplicated; J44.9 Chronic obstructive pulmonary disease, unspecified; F41.8 Other specified anxiety disorders; E86.0 Dehydration; Z88.0 Allergy status to penicillin; D64.9 Anemia, unspecified
CPT/HCPCS: 36415; 70450-TC; 71010-TC; 72100-TC; 73562-TC-LT; 73562-TC-RT; 76705-TC; 80053; 80307; 81003; 81015; 82140; 82550; 82553; 84439; 84443; 84481; 84484; 85025; 85610; 87086; 93005; 93010; 97116-GP; 97161-GP; 99285-25; J1644; J2794

== ENCOUNTER 2017-01-05 09:24 | Inpatient (IN) | payer OTHER ==
--- NOTE | 2017-01-05 10:50 | PDOC ---
History of Present Illness - General Stated Complaint: WEAKNESS Time Seen by Provider: 01/05/17 10:18 - History of Present Illness Initial Comments: 01/05/17 10:50 This is a 71 year old female resident of [facility] assisted living [facility]) with a history of CAD, asthma/COPD, HTN, bipolar disorder, hypothyroidism, Parkinson's disease, diverticulitis, and hernia repair. She is complaining of pain in her knees which is chronic for her. No paperwork from her pa. Called [facility] who said that she was complaining of weakness this morning and couldn't get up. 01/05/17 11:44 Past History - Past Medical History Allergies/Adverse Reactions: Allergies Allergy/AdvReac Type Severity Reaction Status Date / Time morphine Allergy Unknown Verified 01/05/17 10:48 Penicillins Allergy Unknown Verified 01/05/17 10:48 chocolate Allergy Unknown Uncoded 01/05/17 10:48 Home Medications: Ambulatory Orders Alendronate Na [Fosamax (Weekly)] 70 mg PO MO 04/19/16 Aripiprazole [Abilify -] 5 mg PO DAILY 04/19/16 Aspirin [ASA -] 81 mg PO DAILY 04/19/16 Atorvastatin Ca [Lipitor] 20 mg PO HS 04/19/16 Carbidopa/Levodopa [Carbidopa-Levodopa 25-250 Tab] 1 each PO TID 04/19/16 Clopidogrel Bisulfate [Plavix -] 75 mg PO DAILY 04/19/16 Gemfibrozil [Lopid] 600 mg PO BID 04/19/16 Levothyroxine [Synthroid -] 25 mcg PO DAILY 04/19/16 Metoprolol Tartrate [Lopressor -] 25 mg PO DAILY 04/19/16 Montelukast Na [Singulair -] 10 mg PO DAILY 04/19/16 Naproxen [Naprosyn -] 1,000 mg PO BID 04/19/16 Solifenacin Succinate [Vesicare -] 10 mg PO DAILY 04/19/16 Budesonide [Pulmicort Flexhaler] 180 mcg PO BID 05/12/16 Acetaminophen [Mapap] 1,000 mg PO BID 09/01/16 Albuterol 0.083% Nebulizer Shavon [Ventolin 0.083% Nebulizer Soln -] 1 amp NEB TID 09/01/16 Fluticasone Prop 0.05% Nasal [Flonase -] 2 spray NS DAILY 09/01/16 Pantoprazole Sodium [Protonix -] 20 mg PO DAILY 09/01/16 Tiotropium [place] [Spiriva] 2 inh PO DAILY 09/01/16 Tramadol HCl [Ultram -] 50 mg PO TID 09/01/16 Risperidone [Risperdal -] 2 mg PO BID #60 tablet 09/04/16 Unobtainable [Unobtainable] 01/05/17 Anemia: Yes Asthma: Yes Cancer: No Cardiac Disorders: (hx of chest pain) CVA: No COPD: Yes (PT STATED) CHF: No Dementia: No Diabetes: No GI Disorders: Yes (GERD) Disorders: Yes (incontinence) HTN: Yes Hypercholesterolemia: Yes Liver Disease: No Psychiatric Problems: Yes (BiPolar) Seizures: Yes Thyroid Disease: Yes (HYPO.) - Surgical History Abdominal Surgery: No Appendectomy: No Cardiac Surgery: No Cholecystectomy: No Lung Surgery: No Neurologic Surgery: No Orthopedic Surgery: No - Immunization History Td Vaccination: (unknown) Immunization Up to Date: No - Suicide/Smoking/Psychosocial Hx Smoking Status: No Smoking History: Never smoked Years of Tobacco Use: 0 Have you smoked in the past 12 months: No Number of Cigarettes Smoked Daily: 0 Cigars Per Day: 0 Hx Alcohol Use: No Drug/Substance Use Hx: No Substance Use Type: None Hx Substance Use Treatment: No Review of Systems - Review of Systems Able to Perform ROS?: No (difficult: lethargic) Is the patient limited [place] proficient: No Constitutional: Yes: Weakness. No: Symptoms Reported HEENTM: No: Symptoms Reported Respiratory: No: Symptoms reported Cardiac (ROS): No: Symptoms Reported ABD/GI: Yes: Abdominal cramping Musculoskeletal: Yes: Joint Pain (dolores. knees.) Integumentary: No: Symptoms Reported Neurological: No: Symptoms reported Endocrine: No: Symptoms Reported *Physical Exam - Physical Exam General Appearance: Yes: Nourished, Disheveled, Obese HEENT: positive: EOMI, VANI Neck: positive: Trachea midline. negative: Tender Respiratory/Chest: positive: Lungs Clear, Normal Breath Sounds. negative: Chest Tender Cardiovascular: positive: Regular Rhythm, S1, S2, Bradycardia Vascular Pulses: Dorsalis-Pedis (R): 1+, Doralis-Pedis (L): 1+ Gastrointestinal/Abdominal: positive: Tender (lower abdominal ), Soft, Protuberent. negative: Rebound, Mass Integumentary: positive: Normal Color, Dry, Warm Neurologic: positive: Confused, Depressed Affect. negative: Fully Oriented ED Treatment Course - LABORATORY CBC & Chemistry Diagram: 01/05/17 16:15 01/05/17 12:38 Medical Decision Making - Medical Decision Making 01/05/17 17:17 This is a 71 year old female resident of [facility] assisted living [facility]) with a history of CAD, asthma/COPD, HTN, bipolar disorder, hypothyroidism, Parkinson's disease, diverticulitis, and hernia repair complaining of weakness and abdominal pain. Patient bradicardic, midly elevated white count of 11-12. CBC hemolysed will repeat. CT scan abdomen to r/o appendicitis. Will admit upon results. 01/05/17 18:35 Ct Abdomen: 1. Since 05/12/2016 CT abdomen/pelvis, interval increased thickening of the sigmoid mesocolon reflecting the sequela of diverticulitis. This is not definitively acute. Please correlate clinically for mild acute sigmoid diverticulitis. No free intraperitoneal air or drainable collection. 2. Copious stool throughout the colon. Please correlate for constipation. No evidence of bowel obstruction. 3. Moderately well distended urinary bladder with no evidence of wall thickening. Hyperdense contents within the urinary bladder may be secondary to recently excreted IV contrast. Hematuria is not excluded. Please correlate clinically with urinalysis. 4. Hepatic steatosis. 5. A 0.6 x 0.4 01/05/17 18:46 Admitted to med/surg Observation under Dr. Alvarado. Will order fleet enema and obtain urine for UA and cultures. 01/05/17 19:13 Patient signed out to Dr. Back *DC/Admit/Observation/Transfer Diagnosis at time of Disposition: Diverticulitis, Weakness - Discharge Dispostion Admit: Yes - Referrals - Patient Instructions - Post Discharge Activity
[2017-01-05] MEDS ORDERED: SODIUM CHLORIDE 1,000 ML IV STA (12:02)
[2017-01-05] MEDS ORDERED: ACETAMINOPHEN 1000 MG/100 ML VIAL (NON FORMULARY) IVPB ONE (12:03)
--- NOTE | 2017-01-05 12:15 | PDOC ---
Attending Attestation - HPI HPI: 01/05/17 13:03 71 year old female, with significant past medical history of CAD, asthma/COPD, HTN, bipolar disorder, hypothyroidism, Parkinsons disease, diverticulitis, and hernia repair, who was BIBA from [facility] complaining of 1 week of weakness, dry cough, 1 episode of vomiting, and dizziness. - Physicial Exam PE: 01/05/17 13:03 GENERAL: Awake, alert, and fully oriented, in no acute distress, + tired appearing. HEAD: No signs of trauma EYES: PERRLA, EOMI, sclera anicteric, conjunctiva clear ENT: Auricles normal inspection, hearing grossly normal, nares patent, oropharynx clear without exudates. +dry mucous membranes NECK: Normal ROM, supple, no lymphadenopathy, JVD, or masses LUNGS: Breath sounds equal, clear to auscultation bilaterally. No wheezes, and no crackles HEART: Regular rate and rhythm, normal S1 and S2, no murmurs, rubs or gallops ABDOMEN: Soft, nontender, normoactive bowel sounds. No guarding, no rebound. No masses EXTREMITIES: Normal range of motion, no edema. No clubbing or cyanosis. No cords, erythema, or tenderness NEUROLOGICAL: Cranial nerves II through XII grossly intact. Normal speech, normal gait SKIN: Warm, Dry, normal turgor, no rashes or lesions noted. <Sarah Muniz - Last Filed: 01/05/17 13:03> - Resident Resident Name: James Fong - ED Attending Attestation I have performed the following: I have examined & evaluated the patient, The case was reviewed & discussed with the resident, I agree w/resident's findings & plan, Exceptions are as noted - Medical Decision Making 01/05/17 13:05 Vital Signs Temp Pulse Resp BP Pulse Ox 98.6 F 50 L 16 131/63 98 01/05/17 09:48 01/05/17 09:48 01/05/17 09:48 01/05/17 09:48 01/05/17 09:48 71 year old female resident of [facility], history of CAD, asthma/COPD, HTN, bipolar disorder, Parkinson's disease, diverticulitis, hernia repair presents with generalized weakness and lightheadedness x 1 week. The patient overall has been feeling generally weak. Has endorsed 3 days of tactile fevers and chills. Three days ago, developed some loose stools and recently yesterday, developed some nausea and vomiting. Also with nonproductive cough 3 days ago. Has noted today that she was developing suprapubic discomfort. Given these symptoms, I agree with plan to workup for cystitis, pneumonia, metabolic disarray. CT abdomen and pelvis for the lower abdomen. IV fluids for the dehydration. 01/05/17 18:32 CBC, BMP 01/05/17 16:15 01/05/17 12:38 CMP Sodium 142 mmol/L (136-145) 01/05/17 12:38 Potassium 4.7 mmol/L (3.5-5.1) 01/05/17 12:38 Chloride 107 mmol/L (98-107) 01/05/17 12:38 Carbon Dioxide 24 mmol/L (21-32) D 01/05/17 12:38 Anion Gap 11 (8-16) 01/05/17 12:38 BUN 24 mg/dL (7-18) H D 01/05/17 12:38 Creatinine 0.9 mg/dL (0.55-1.02) D 01/05/17 12:38 Creat Clearance w eGFR > 60 (>60) 01/05/17 12:38 Random Glucose 79 mg/dL (74-106) D 01/05/17 12:38 Calcium 8.6 mg/dL (8.5-10.1) 01/05/17 12:38 Phosphorus 3.5 mg/dL (2.5-4.9) 01/05/17 12:38 Magnesium 2.2 mg/dL (1.8-2.4) 01/05/17 12:38 Total Bilirubin 0.5 mg/dL (0.2-1.0) 01/05/17 12:38 AST 17 U/L (15-37) D 01/05/17 12:38 ALT 18 U/L (12-78) D 01/05/17 12:38 Alkaline Phosphatase 93 U/L (45-117) D 01/05/17 12:38 Creatine Kinase 112 IU/L (26-192) 01/05/17 12:38 Troponin I < 0.02 ng/ml (0.00-0.05) 01/05/17 12:38 Total Protein 6.1 g/dl (6.4-8.2) L 01/05/17 12:38 Albumin 3.6 g/dl (3.4-5.0) D 01/05/17 12:38 TSH 3.04 uIU/ml (0.358-3.74) D 01/05/17 12:38 CT abdomen and pelvis demonstrates findings likely consistent with acute diverticulitis. Will give levaquin and flagyl and admit to the hospital. <Usman Beavers - Last Filed: 01/05/17 18:33> Heart Score/ECG Review #1 01/05/17 13:10 NSR 44, QTC 418 msec, T wave flat III, no std/renee <Usman Beavers - Last Filed: 01/05/17 18:33>
[2017-01-05] MEDS ORDERED: ACETAMINOPHEN INJECTION 100 ML IVPB ONE (12:34)
--- NOTE | 2017-01-05 13:27 | EKG ---
Test Reason : Blood Pressure : / mmHG Vent. Rate : 044 BPM Atrial Rate : 044 BPM P-R Int : 192 ms QRS Dur : 092 ms QT Int : 490 ms P-R-T Axes : 054 008 044 degrees QTc Int : 418 ms MARKED SINUS BRADYCARDIA ABNORMAL ECG WHEN COMPARED WITH ECG OF 01-SEP-2016 10:43, VENT. RATE HAS DECREASED BY 33 BPM Confirmed by YOUNG MCMAHAN MD ([id number]) on 01/05/2017 1:27:30 PM Referred By: Confirmed By:YOUNG MCMAHAN MD
[2017-01-05 13:35] LABS: ALBUMIN 3.6 g/dl (3.4-5.0); ANION GAP 11 (8-16); BILIRUBIN,TOTAL 0.5 mg/dL (0.2-1.0); CALCIUM 8.6 mg/dL (8.5-10.1); CO2 24 mmol/L (21-32); CREATININE 0.9 mg/dL (0.55-1.02); GLUCOSE,RANDOM 79 mg/dL (74-106); SGPT/ALT 18 U/L (12-78); TOT PROT 6.1 g/dl (6.4-8.2)
[2017-01-05 13:36] LABS: ALK PHOS 93 U/L (45-117)
[2017-01-05 13:45] LABS: SGOT/AST 17 U/L (15-37)
[2017-01-05 13:56] LABS: PHOSPHOROUS 3.5 mg/dL (2.5-4.9)
[2017-01-05 13:57] LABS: CPK 112 IU/L (26-192)
[2017-01-05 14:06] LABS: MAGNESIUM 2.2 mg/dL (1.8-2.4)
[2017-01-05 14:09] LABS: THYROID STIMULATING HORMONE 3.04 uIU/ml (0.358-3.74); TROPONIN I < 0.02 ng/ml (0.00-0.05)
[2017-01-05 16:48] LABS: MCHC 33.1 g/dl (32.0-36.0); MEAN CELL VOLUME 93.7 fl (80-96); MEAN PLT VOLUME 8.2 fl (7.5-11.1); PLATELET COUNT 230 K/MM3 (134-434); WHITE BLOOD COUNT 11.2 K/mm3 (4.0-10.0)
[2017-01-05] MEDS ORDERED: LEVOFLOXACIN 750 MG IVPB 750 MG/150 ML BAG IVPB ONE ×2 (18:31→18:46)
[2017-01-05] MEDS ORDERED: METRONIDAZOLE 500 MG PREMIXED 500 MG/100 ML MG IVPB ONE ×2 (18:31→18:46)
[2017-01-05 19:39] LABS: PLATELET ESTIMATE ADEQUATE; REACTIVE LYMPHOCYTES 4 % (0-80); TOTAL CELLS COUNTED 100
--- NOTE | 2017-01-05 20:35 | PDOC ---
*Physical Exam - Vital Signs Patient's care signed out to me at the beginning of my shift. Patient is admitted for possible diverticulitis/colitis on her CT results, obs admission. Awaiting urine collection for UA/cx/tox, also needs Fleets enema. Dr. Alvarado to see Pt. Last Vital Signs Temp Pulse Resp BP Pulse Ox 98.2 F 48 L 16 142/57 97 01/05/17 17:48 01/05/17 17:48 01/05/17 09:48 01/05/17 17:48 01/05/17 17:48 ED Treatment Course - LABORATORY CBC & Chemistry Diagram: 01/05/17 16:15 01/05/17 12:38 - ADDITIONAL ORDERS Additional order review: Laboratory Results 01/05/17 12:38 Sodium 142 Potassium 4.7 Chloride 107 Carbon Dioxide 24 D Anion Gap 11 BUN 24 H D Creatinine 0.9 D Creat Clearance w eGFR > 60 Random Glucose 79 D Calcium 8.6 Phosphorus 3.5 Magnesium 2.2 Total Bilirubin 0.5 AST 17 D ALT 18 D Alkaline Phosphatase 93 D Creatine Kinase 112 Troponin I < 0.02 Total Protein 6.1 L Albumin 3.6 D TSH 3.04 D 01/05/17 01/05/17 16:15 12:38 RBC 4.27 D Cancelled MCV 93.7 Cancelled MCHC 33.1 Cancelled RDW 14.0 Cancelled MPV 8.2 Cancelled Neutrophils % No Result Required. Cancelled Lymphocytes % No Result Required. Cancelled Monocytes % Cancelled Eosinophils % Cancelled Basophils % Cancelled - Medications Given in the ED: ED Medications Discontinued Medications Generic Name Dose Route Start Last Admin Trade Name Hi PRN Reason Stop Dose Admin Acetaminophen 1,000 mg 01/05/17 12:03 01/05/17 12:37 Ofirmev Injection - IVPB 01/05/17 12:04 1,000 mg ONCE ONE Administration Sodium Chloride 1,000 mls @ 1,000 mls/hr 01/05/17 12:02 01/05/17 12:59 Normal Saline - IV 01/05/17 13:01 1,000 mls/hr ASDIR STA Administration Metronidazole 500 mg in 100 mls @ 100 mls/hr 01/05/17 18:31 01/05/17 18:50 Flagyl 500mg Premixed Ivpb - IVPB 01/05/17 19:30 100 mls/hr ONCE ONE Administration Levofloxacin 750 mg in 150 mls @ 100 mls/hr 01/05/17 18:31 01/05/17 19:54 Levaquin 750 Mg Premixed Ivpb - IVPB 01/05/17 20:00 100 mls/hr ONCE ONE Administration Medical Decision Making - Medical Decision Making 01/05/17 20:34 Collected urine sample. *DC/Admit/Observation/Transfer Diagnosis at time of Disposition: Diverticulitis, Weakness - Referrals - Patient Instructions - Post Discharge Activity
[2017-01-05 20:59] LABS: URINE APPEARANCE CLEAR; URINE BILIRUBIN NEGATIVE (NEGATIVE); URINE BLOOD NEGATIVE (NEGATIVE); URINE COLOR STRAW; URINE GLUCOSE (UA) NEGATIVE (NEGATIVE); URINE KETONE NEGATIVE (NEGATIVE); URINE NITRITE NEGATIVE (NEGATIVE); URINE PROTEIN NEGATIVE (NEGATIVE); URINE UROBILINOGEN NEGATIVE mg/dL (0.2-1.0)
[2017-01-05 21:17] LABS: URINE MARIJUANA THC NEGATIVE ng/ml (CUTOFF=50)
--- NOTE | 2017-01-05 22:11 | HP ---
Admitting History and Physical - Primary Care Physician PCP: Rosangela Alvarado - Admission Chief Complaint: abdominal pain History of Present Illness: 71 year old female resident of [facility] ([facility]) with a history of CAD, asthma/COPD, HTN, bipolar disorder, hypothyroidism, Parkinson's disease, diverticulitis, and hernia repair. She is complaining of pain in her knees which is chronic for her. No paperwork from her ms. Called [facility] who said that she was complaining of weakness this morning and couldn't get up. - Past Medical History Cardiovascular: Yes: CAD, HTN, Hyperlipdemia Pulmonary: Yes: Asthma Renal/: Yes: Renal Inusuff Psych: Yes: Anxiety, Depression, Schizophrenia Endocrine: Yes: Hypothyroidism - Past Surgical History Past Surgical History: Yes: None - Smoking History Smoking history: Never smoked Have you smoked in the past 12 months: No Aproximately how many cigarettes per day: 0 - Alcohol/Substance Use Hx Alcohol Use: No History of Substance Use: reports: None - Social History ADL: Independent History of Recent Travel: No Home Medications - Allergies Allergies/Adverse Reactions: Allergies Allergy/AdvReac Type Severity Reaction Status Date / Time morphine Allergy Unknown Verified 01/05/17 10:48 Penicillins Allergy Unknown Verified 01/05/17 10:48 chocolate Allergy Unknown Uncoded 01/05/17 10:48 - Home Medications Home Medications: Ambulatory Orders Alendronate Na [Fosamax (Weekly)] 70 mg PO MO 04/19/16 Aripiprazole [Abilify -] 5 mg PO DAILY 04/19/16 Aspirin [ASA -] 81 mg PO DAILY 04/19/16 Atorvastatin Ca [Lipitor] 20 mg PO HS 04/19/16 Carbidopa/Levodopa [Carbidopa-Levodopa 25-250 Tab] 1 each PO TID 04/19/16 Clopidogrel Bisulfate [Plavix -] 75 mg PO DAILY 04/19/16 Gemfibrozil [Lopid] 600 mg PO BID 04/19/16 Levothyroxine [Synthroid -] 25 mcg PO DAILY 04/19/16 Metoprolol Tartrate [Lopressor -] 25 mg PO DAILY 04/19/16 Montelukast Na [Singulair -] 10 mg PO DAILY 04/19/16 Naproxen [Naprosyn -] 1,000 mg PO BID 04/19/16 Solifenacin Succinate [Vesicare -] 10 mg PO DAILY 04/19/16 Budesonide [Pulmicort Flexhaler] 180 mcg PO BID 05/12/16 Acetaminophen [Mapap] 1,000 mg PO BID 09/01/16 Albuterol 0.083% Nebulizer Shavon [Ventolin 0.083% Nebulizer Soln -] 1 amp NEB TID 09/01/16 Fluticasone Prop 0.05% Nasal [Flonase -] 2 spray NS DAILY 09/01/16 Pantoprazole Sodium [Protonix -] 20 mg PO DAILY 09/01/16 Tiotropium [place] [Spiriva] 2 inh PO DAILY 09/01/16 Tramadol HCl [Ultram -] 50 mg PO TID 09/01/16 Risperidone [Risperdal -] 2 mg PO BID #60 tablet 09/04/16 Unobtainable [Unobtainable] 01/05/17 Physical Examination Vital Signs: Vital Signs Temperature 98.2 F 01/05/17 17:48 Pulse Rate 48 L 01/05/17 17:48 Respiratory Rate 16 01/05/17 19:35 Blood Pressure 142/57 01/05/17 17:48 O2 Sat by Pulse Oximetry (%) 97 01/05/17 19:35 Constitutional: Yes: No Distress HENT: Yes: Atraumatic Neck: Yes: Supple Cardiovascular: Yes: Regular Rate and Rhythm Respiratory: Yes: CTA Bilaterally Gastrointestinal: Yes: Normal Bowel Sounds Extremities: Yes: WNL Neurological: Yes: Alert, Oriented Labs: CBC, BMP 01/05/17 16:15 01/05/17 12:38 Problem List - Problems (1) Diverticulitis Assessment/Plan: npo ivf iv abx gi consult Code(s): K57.92 - DVTRCLI OF INTEST, PART UNSP, W/O PERF OR ABSCESS W/O BLEED (2) Weakness Assessment/Plan: feeling better Code(s): R53.1 - WEAKNESS (3) Anxiety Code(s): F41.9 - ANXIETY DISORDER, UNSPECIFIED (4) Bipolar disorder Code(s): F31.9 - BIPOLAR DISORDER, UNSPECIFIED Qualifiers: Active/Remission status: remission status unspecified Qualified Code(s): F31.9 - Bipolar disorder, unspecified (5) COPD (chronic obstructive pulmonary disease) Code(s): J44.9 - CHRONIC OBSTRUCTIVE PULMONARY DISEASE, UNSPECIFIED Qualifiers: Emphysema type: unspecified (6) Coronary artery disease Code(s): I25.10 - ATHSCL HEART DISEASE OF [place] CORONARY ARTERY W/O ANG PCTRS Qualifiers: Coronary Disease-Associated Artery/Lesion type: unspecified vessel or lesion type (7) GERD (gastroesophageal reflux disease) Code(s): K21.9 - GASTRO-ESOPHAGEAL REFLUX DISEASE WITHOUT ESOPHAGITIS Qualifiers: (8) Hyperlipidemia Code(s): E78.5 - HYPERLIPIDEMIA, UNSPECIFIED (9) Hypothyroid Code(s): E03.9 - HYPOTHYROIDISM, UNSPECIFIED (10) Parkinsonism Code(s): G20 - PARKINSON'S DISEASE Assessment/Plan Laboratory Tests 01/05/17 01/05/17 01/05/17 12:38 12:38 12:38 WBC Cancelled Corrected WBC (auto) Cancelled RBC Cancelled Hgb Cancelled Hct Cancelled MCV Cancelled MCH Cancelled MCHC Cancelled RDW Cancelled Plt Count Cancelled MPV Cancelled Total Counted Neutrophils % Cancelled Neutrophils % (Manual) Lymphocytes % Cancelled Lymphocytes % (Manual) Monocytes % Cancelled Monocytes % (Manual) Eosinophils % Cancelled Eosinophils % (Manual) Basophils % Cancelled Platelet Estimate Platelet Comment Cancelled Sodium 142 Potassium 4.7 Chloride 107 Carbon Dioxide 24 D Anion Gap 11 BUN 24 H D Creatinine 0.9 D Creat Clearance w eGFR > 60 Random Glucose 79 D Calcium 8.6 Phosphorus 3.5 Magnesium 2.2 Total Bilirubin 0.5 AST 17 D ALT 18 D Alkaline Phosphatase 93 D Creatine Kinase 112 Troponin I < 0.02 Total Protein 6.1 L Albumin 3.6 D TSH 3.04 D Urine Color Straw Urine Appearance Clear Urine pH 5.0 Ur Specific [place] 1.025 Urine Protein Negative Urine Glucose (UA) Negative Urine Ketones Negative Urine Blood Negative Urine Nitrite Negative Urine Bilirubin Negative Urine Urobilinogen Negative Opiates Screen Methadone Screen Barbiturate Screen Phencyclidine Screen Ur Amphetamines Screen MDMA (Ecstasy) Screen Benzodiazepines Screen Cocaine Screen U Marijuana (THC) Screen 01/05/17 01/05/17 12:38 16:15 WBC 11.2 H Corrected WBC (auto) RBC 4.27 D Hgb 13.2 D Hct 40.1 D MCV 93.7 MCH 31.0 MCHC 33.1 RDW 14.0 Plt Count 230 MPV 8.2 Total Counted 100 Neutrophils % No Result Required. Neutrophils % (Manual) 53.0 Lymphocytes % No Result Required. Lymphocytes % (Manual) 35.0 Monocytes % Monocytes % (Manual) 7 Eosinophils % Eosinophils % (Manual) 1.0 Basophils % Platelet Estimate Adequate Platelet Comment Sodium Potassium Chloride Carbon Dioxide Anion Gap BUN Creatinine Creat Clearance w eGFR Random Glucose Calcium Phosphorus Magnesium Total Bilirubin AST ALT Alkaline Phosphatase Creatine Kinase Troponin I Total Protein Albumin TSH Urine Color Urine Appearance Urine pH Ur Specific [place] Urine Protein Urine Glucose (UA) Urine Ketones Urine Blood Urine Nitrite Urine Bilirubin Urine Urobilinogen Opiates Screen Negative Methadone Screen Negative Barbiturate Screen Negative Phencyclidine Screen Negative Ur Amphetamines Screen Negative MDMA (Ecstasy) Screen Negative Benzodiazepines Screen Negative Cocaine Screen Negative U Marijuana (THC) Screen Negative Active Medications Generic Name Dose Route Start Last Admin Trade Name Freq PRN Reason Stop Dose Admin Acetaminophen 650 mg 01/06/17 13:19 01/06/17 13:47 Tylenol - PO 650 mg Q6H PRN Administration FEVER OR PAIN Aripiprazole 5 mg 01/06/17 10:00 01/06/17 09:31 Abilify PO 5 mg DAILY NITESH Administration Aspirin 81 mg 01/06/17 10:00 01/06/17 09:26 Asa - PO 81 mg DAILY NITESH Administration Atorvastatin Calcium 20 mg 01/06/17 22:00 Lipitor - PO HS NITESH Carbidopa/Levodopa 1 each 01/06/17 06:00 01/06/17 13:47 Sinemet 25/250 - PO 1 each TID NITESH Administration Clopidogrel Bisulfate 75 mg 01/06/17 10:00 01/06/17 09:26 Plavix - PO 75 mg DAILY NITESH Administration Gemfibrozil 600 mg 01/06/17 10:00 01/06/17 09:26 Lopid - PO 600 mg BID NITESH Administration Sodium Chloride 1,000 mls @ 75 mls/hr 01/05/17 22:30 01/06/17 14:52 Normal Saline - IV 75 mls/hr ASDIR NITESH Administration Metronidazole 500 mg in 100 mls @ 100 mls/hr 01/06/17 02:00 01/06/17 17:46 Flagyl 500mg Premixed Ivpb - IVPB 100 mls/hr Q8H-IV NITESH Administration Levofloxacin 500 mg in 100 mls @ 100 mls/hr 01/06/17 10:00 01/06/17 09:27 Levaquin 500 Mg Premixed Ivpb - IVPB 01/07/17 09:59 100 mls/hr DAILY NITESH Administration Levothyroxine Sodium 25 mcg 01/06/17 07:00 01/06/17 06:12 Synthroid - PO 25 mcg DAILY@0700 NITESH Administration Metoprolol Tartrate 25 mg 01/06/17 10:00 01/06/17 09:26 Lopressor - PO 25 mg DAILY NITESH Administration Montelukast Sodium 10 mg 01/06/17 22:00 Singulair - PO HS NITESH Pantoprazole Sodium 20 mg 01/06/17 10:00 01/06/17 09:26 Protonix - PO 20 mg DAILY NITESH Administration Risperidone 2 mg 01/06/17 10:00 01/06/17 09:26 Risperdal - PO 2 mg BID NITESH Administration Solifenacin 10 mg 01/06/17 10:00 01/06/17 09:25 Vesicare - PO 10 mg DAILY NITESH Administration Tiotropium [place] 1 puff 01/06/17 10:00 01/06/17 09:31 Spiriva - IH 1 puff DAILY NITESH Administration CONTINUE HOME MEDS FOR HER OTHER CONDITIONS
[2017-01-05 22:22] LABS: URINE LEUK ESTERASE 2+ (NEGATIVE)
[2017-01-05 22:33] VITALS: BMI 30.9
[2017-01-05 22:38] LABS: URINE BACTERIA FEW /hpf (NEGATIVE); URINE RBC 0-2 /hpf (0-3); URINE WBC 20-30 (0-5)
[2017-01-05] MEDS: SODIUM CHLORIDE 1,000 ML IV SCH (22:57)
[2017-01-06] MEDS: METRONIDAZOLE 500 MG PREMIXED 500 MG/100 ML MG IVPB SCH ×3 (01:28→17:46)
[2017-01-06] MEDS: LEVOTHYROXINE NA 25 MCG TABLET (FP) PO SCH (06:12)
[2017-01-06] MEDS: CARBIDOPA/LEVODOPA 25/250 TABLET (FP) PO SCH ×3 (06:12→21:36)
[2017-01-06 08:11] LABS: ALBUMIN 3.3 g/dl (3.4-5.0); ANION GAP 8 (8-16); CO2 24 mmol/L (21-32); GLUCOSE,RANDOM 101 mg/dL (74-106); MCH 31.2 pg (25.7-33.7); MCHC 33.3 g/dl (32.0-36.0); MEAN CELL VOLUME 93.5 fl (80-96); MEAN PLT VOLUME 8.2 fl (7.5-11.1); PLATELET COUNT 239 K/MM3 (134-434); RDW 13.8 % (11.6-15.6); SGPT/ALT 9 U/L (12-78); WHITE BLOOD COUNT 10.2 K/mm3 (4.0-10.0)
[2017-01-06 08:14] LABS: ALK PHOS 96 U/L (45-117); BILIRUBIN,TOTAL 0.6 mg/dL (0.2-1.0); CREATININE 0.8 mg/dL (0.55-1.02); SGOT/AST 6 U/L (15-37); TOT PROT 5.7 g/dl (6.4-8.2)
[2017-01-06] MEDS: SOLIFENACIN SUCCINATE 5 MG TAB (FP) PO SCH (09:25)
[2017-01-06] MEDS: risperiDONE 1 MG TABLET (FP) PO SCH ×2 (09:26→21:36)
[2017-01-06] MEDS: PANTOPRAZOLE 20 MG TABLET (FP) PO SCH (09:26)
[2017-01-06] MEDS: METOPROLOL TARTRATE 25 MG TABLET (FP) PO SCH (09:26)
[2017-01-06] MEDS: ASPIRIN 81 MG CHEWABLE TABLETS PO SCH (09:26)
[2017-01-06] MEDS: GEMFIBROZIL 600 MG TABLET (FP) PO SCH ×2 (09:26→21:36)
[2017-01-06] MEDS: CLOPIDOGREL BISULFATE 75 MG TABLET (FP) PO SCH (09:26)
[2017-01-06] MEDS ORDERED: PT OWN MED DRAWER 7, Y5N ONE ×3 (09:30→21:33)
[2017-01-06] MEDS: ARIPiprazole 5 MG TABLET (FP) PO SCH (09:31)
[2017-01-06] MEDS: TIOTROPIUM BROMIDE 18 MCG/INH (DEVICE W/ 5 CAPSULES) IH SCH (09:31)
[2017-01-06] MEDS ORDERED: LEVOFLOXACIN 500 MG IVPB 500 MG/100 ML BAG IVPB SCH (10:00)
[2017-01-06 10:22] LABS: METAMYELOCYTE 1 % (0-2); PLATELET ESTIMATE ADEQUATE; REACTIVE LYMPHOCYTES 3 % (0-80); TOTAL CELLS COUNTED 100
--- NOTE | 2017-01-06 10:37 | PN ---
Progress Note (short form) - Note Progress Note: Called to see this patient transferred from [facility] for eval of diverticulitis. She is a service case and will need to go to GI on service yesterday as that is when the consult was called. Her nurse Sofiya was made aware. Thank you
[2017-01-06] MEDS: ACETAMINOPHEN 325 MG TABLET (FP) PO PRN (13:47)
[2017-01-06] MEDS: SODIUM CHLORIDE 1,000 ML IV SCH (14:52)
--- NOTE | 2017-01-06 16:27 | CON.ID ---
Consult Consult Specialty:: Infectious Disease Reason for Consultation:: weakness, diverticulitis - History of Present Illness History of Present Illness: 71 y.o. female resident in a psychiatric facility with history of CAD, HTN, bipolar disorder, hypothyroidism, Parkinson's disease, diverticulitis, asthma/ COPD and hernia repair presents with c/o generalized weakness, lower abdominal pain with 1 loose BM/day for the past 5 days, with one episode of n/v, nonproductive cough and nonspecific chronic b/l knee pain. She denies chest pain , shortness of breath, fever but has had chills for the past 2 days. Denies dysuria, hematuria, fever. - History Source History Provided By: Patient Limitations to Obtaining History: No Limitations - Past Medical History [employer]ER: Yes: Parkinson's Cardio/Vascular: Yes: CAD, HTN, Hyperlipdemia Pulmonary: Yes: Asthma ...: No Psych: Yes: Anxiety, Depression, Schizophrenia Musculoskeletal: Yes: Other ENT: No: Allergic Rhinitis, Sinusitis, Other Endocrine: Yes: Hypothyroidism Dermatology: No: Basal Cell, Cellulitis, Eczema, Melanoma, Psoriasis, Squamous Cell, Other - Past Surgical History Past Surgical History: Yes: None - Alcohol/Substance Use Hx Alcohol Use: No History of Substance Use: reports: None - Smoking History Smoking history: Never smoked Have you smoked in the past 12 months: No Aproximately how many cigarettes per day: 0 - Social History Usual Living Arrangement: Assisted ADL: Independent History of Recent Travel: No Home Medications - Allergies Allergies/Adverse Reactions: Allergies Allergy/AdvReac Type Severity Reaction Status Date / Time morphine Allergy Unknown Verified 01/05/17 10:48 Penicillins Allergy Unknown Verified 01/05/17 10:48 chocolate Allergy Unknown Uncoded 01/05/17 10:48 - Home Medications Home Medications: Ambulatory Orders Alendronate Na [Fosamax (Weekly)] 70 mg PO MO 04/19/16 Aripiprazole [Abilify -] 5 mg PO DAILY 04/19/16 Aspirin [ASA -] 81 mg PO DAILY 04/19/16 Atorvastatin Ca [Lipitor] 20 mg PO HS 04/19/16 Carbidopa/Levodopa [Carbidopa-Levodopa 25-250 Tab] 1 each PO TID 04/19/16 Clopidogrel Bisulfate [Plavix -] 75 mg PO DAILY 04/19/16 Gemfibrozil [Lopid] 600 mg PO BID 04/19/16 Levothyroxine [Synthroid -] 25 mcg PO DAILY 04/19/16 Metoprolol Tartrate [Lopressor -] 25 mg PO DAILY 04/19/16 Montelukast Na [Singulair -] 10 mg PO DAILY 04/19/16 Naproxen [Naprosyn -] 1,000 mg PO BID 04/19/16 Solifenacin Succinate [Vesicare -] 10 mg PO DAILY 04/19/16 Budesonide [Pulmicort Flexhaler] 180 mcg PO BID 05/12/16 Acetaminophen [Mapap] 1,000 mg PO BID 09/01/16 Albuterol 0.083% Nebulizer Shavon [Ventolin 0.083% Nebulizer Soln -] 1 amp NEB TID 09/01/16 Fluticasone Prop 0.05% Nasal [Flonase -] 2 spray NS DAILY 09/01/16 Pantoprazole Sodium [Protonix -] 20 mg PO DAILY 09/01/16 Tiotropium [place] [Spiriva] 2 inh PO DAILY 09/01/16 Tramadol HCl [Ultram -] 50 mg PO TID 09/01/16 Risperidone [Risperdal -] 2 mg PO BID #60 tablet 09/04/16 Unobtainable [Unobtainable] 01/05/17 Family Disease History - Family Disease History Family History: Unable to Obtain Review of Systems - Review of Systems Constitutional: reports: Weakness Eyes: reports: No Symptoms HENT: reports: No Symptoms Neck: reports: No Symptoms Cardiovascular: reports: No Symptoms Respiratory: reports: Cough Gastrointestinal: reports: Abdominal Pain (RLQ), Diarrhea (LBMs 1x/day for 5 days), Nausea, Vomiting (1 episode, none today) Genitourinary: reports: No Symptoms Breasts: reports: No Symptoms Reported Musculoskeletal: reports: Joint Pain (chronic b/l knee) Integumentary: reports: No Symptoms Neurological: reports: No Symptoms Endocrine: reports: No Symptoms Hematology/Lymphatic: reports: No Symptoms Psychiatric: reports: No Symptoms Physical Exam Vital Signs: Vital Signs Temperature 98.2 F 01/06/17 14:23 Pulse Rate 52 L 01/06/17 14:23 Respiratory Rate 17 01/06/17 14:23 Blood Pressure 138/48 01/06/17 14:23 O2 Sat by Pulse Oximetry (%) 95 01/06/17 09:00 Constitutional: Yes: No Distress, Calm Eyes: Yes: WNL HENT: Yes: WNL Neck: Yes: Supple Cardiovascular: Yes: Regular Rate and Rhythm Respiratory: Yes: CTA Bilaterally Gastrointestinal: Yes: Normal Bowel Sounds, Soft, Tenderness (RLQ with deep palpation, no guarding) Renal/: Yes: WNL Breast(s): Yes: WNL Musculoskeletal: Yes: WNL Extremities: Yes: WNL Edema: No Integumentary: Yes: WNL Neurological: Yes: Alert, Oriented Psychiatric: Yes: Alert Labs: CBC, BMP 01/06/17 06:20 01/06/17 06:20 Urine Test Results Urine Color Straw 01/05/17 12:38 Urine Appearance Clear 01/05/17 12:38 Urine pH 5.0 (5.0-8.0) 01/05/17 12:38 Ur Specific [place] 1.025 (1.001-1.035) 01/05/17 12:38 Urine Protein Negative (NEGATIVE) 01/05/17 12:38 Urine Glucose (UA) Negative (NEGATIVE) 01/05/17 12:38 Urine Ketones Negative (NEGATIVE) 01/05/17 12:38 Urine Blood Negative (NEGATIVE) 01/05/17 12:38 Urine Nitrite Negative (NEGATIVE) 01/05/17 12:38 Urine Bilirubin Negative (NEGATIVE) 01/05/17 12:38 Ur Leukocyte Esterase 2+ (NEGATIVE) H 01/05/17 12:38 Urine RBC 0-2 /hpf (0-3) 01/05/17 12:38 Urine WBC 20-30 (0-5) 01/05/17 12:38 Ur Epithelial Cells Few /HPF 01/05/17 12:38 Urine Bacteria Few /hpf (NEGATIVE) 01/05/17 12:38 Imaging - Results Cat Scan: Report Reviewed (thickened sigmoid colon) Problem List - Problems (1) Diverticulitis Code(s): K57.92 - DVTRCLI OF INTEST, PART UNSP, W/O PERF OR ABSCESS W/O BLEED (2) Weakness Code(s): R53.1 - WEAKNESS (3) Diarrhea Code(s): R19.7 - DIARRHEA, UNSPECIFIED Qualifiers: Diarrhea type: unspecified type Qualified Code(s): R19.7 - Diarrhea, unspecified (4) Bipolar disorder Code(s): F31.9 - BIPOLAR DISORDER, UNSPECIFIED Qualifiers: Active/Remission status: remission status unspecified Qualified Code(s): F31.9 - Bipolar disorder, unspecified (5) Coronary artery disease Code(s): I25.10 - ATHSCL HEART DISEASE OF [place] CORONARY ARTERY W/O ANG PCTRS Qualifiers: Coronary Disease-Associated Artery/Lesion type: unspecified vessel or lesion type (6) Parkinsonism Code(s): G20 - PARKINSON'S DISEASE Assessment/Plan 71 y.o. female with multiple comorbidities presenting with lethargy, lower abd pain, episodes of loose BM with evidence of thickened sigmoid colon Possible Diverticulitis - continue levaquin and flagyl IV for now - obtain urine culture - monitor vitals, pt currently afebrile, without leukocytosis will f/u
--- NOTE | 2017-01-06 18:54 | PN ---
Progress Note, Physician History of Present Illness: feeling good - Current Medication List Current Medications: Active Medications Acetaminophen (Tylenol -) 650 mg PO Q6H PRN PRN Reason: FEVER OR PAIN Last Admin: 01/06/17 13:47 Dose: 650 mg Aripiprazole (Abilify) 5 mg PO DAILY [facility] Last Admin: 01/06/17 09:31 Dose: 5 mg Aspirin (Asa -) 81 mg PO DAILY [facility] Last Admin: 01/06/17 09:26 Dose: 81 mg Atorvastatin Calcium (Lipitor -) 20 mg PO [facility] Carbidopa/Levodopa (Sinemet 25/250 -) 1 each PO TID [facility] Last Admin: 01/06/17 13:47 Dose: 1 each Clopidogrel Bisulfate (Plavix -) 75 mg PO DAILY [facility] Last Admin: 01/06/17 09:26 Dose: 75 mg Gemfibrozil (Lopid -) 600 mg PO BID [facility] Last Admin: 01/06/17 09:26 Dose: 600 mg Sodium Chloride (Normal Saline -) 1,000 mls @ 75 mls/hr IV ASDIR [facility] Last Admin: 01/06/17 14:52 Dose: 75 mls/hr Metronidazole (Flagyl 500mg Premixed Ivpb -) 500 mg in 100 mls @ 100 mls/hr IVPB Q8H-IV [facility] Last Admin: 01/06/17 17:46 Dose: 100 mls/hr Levofloxacin (Levaquin 500 Mg Premixed Ivpb -) 500 mg in 100 mls @ 100 mls/hr IVPB DAILY [facility] Stop: 01/07/17 09:59 Last Admin: 01/06/17 09:27 Dose: 100 mls/hr Levothyroxine Sodium (Synthroid -) 25 mcg PO DAILY@0700 [facility] Last Admin: 01/06/17 06:12 Dose: 25 mcg Metoprolol Tartrate (Lopressor -) 25 mg PO DAILY [facility] Last Admin: 01/06/17 09:26 Dose: 25 mg Montelukast Sodium (Singulair -) 10 mg PO [facility] Pantoprazole Sodium (Protonix -) 20 mg PO DAILY [facility] Last Admin: 01/06/17 09:26 Dose: 20 mg Risperidone (Risperdal -) 2 mg PO BID [facility] Last Admin: 01/06/17 09:26 Dose: 2 mg Solifenacin (Vesicare -) 10 mg PO DAILY [facility] Last Admin: 01/06/17 09:25 Dose: 10 mg Tiotropium [place] (Spiriva -) 1 puff IH DAILY [facility] Last Admin: 01/06/17 09:31 Dose: 1 puff - Objective Vital Signs: Vital Signs Temperature 98.2 F 01/06/17 14:23 Pulse Rate 52 L 01/06/17 14:23 Respiratory Rate 17 01/06/17 14:23 Blood Pressure 138/48 01/06/17 14:23 O2 Sat by Pulse Oximetry (%) 95 01/06/17 09:00 Constitutional: Yes: No Distress HENT: Yes: Atraumatic Neck: Yes: Supple Cardiovascular: Yes: Regular Rate and Rhythm Respiratory: Yes: CTA Bilaterally Gastrointestinal: Yes: Normal Bowel Sounds Extremities: Yes: WNL Neurological: Yes: Alert, Oriented Labs: CBC, BMP 01/06/17 06:20 01/06/17 06:20 Problem List - Problems (1) Diverticulitis Assessment/Plan: npo ivf iv abx gi consult Code(s): K57.92 - DVTRCLI OF INTEST, PART UNSP, W/O PERF OR ABSCESS W/O BLEED (2) Weakness Assessment/Plan: feeling better Code(s): R53.1 - WEAKNESS (3) Anxiety Code(s): F41.9 - ANXIETY DISORDER, UNSPECIFIED (4) Bipolar disorder Code(s): F31.9 - BIPOLAR DISORDER, UNSPECIFIED Qualifiers: Active/Remission status: remission status unspecified Qualified Code(s): F31.9 - Bipolar disorder, unspecified (5) COPD (chronic obstructive pulmonary disease) Code(s): J44.9 - CHRONIC OBSTRUCTIVE PULMONARY DISEASE, UNSPECIFIED Qualifiers: Emphysema type: unspecified (6) Coronary artery disease Code(s): I25.10 - ATHSCL HEART DISEASE OF [place] CORONARY ARTERY W/O ANG PCTRS Qualifiers: Coronary Disease-Associated Artery/Lesion type: unspecified vessel or lesion type (7) GERD (gastroesophageal reflux disease) Code(s): K21.9 - GASTRO-ESOPHAGEAL REFLUX DISEASE WITHOUT ESOPHAGITIS Qualifiers: (8) Hyperlipidemia Code(s): E78.5 - HYPERLIPIDEMIA, UNSPECIFIED (9) Hypothyroid Code(s): E03.9 - HYPOTHYROIDISM, UNSPECIFIED (10) Parkinsonism Code(s): G20 - PARKINSON'S DISEASE Assessment/Plan 01/05/17 01/05/17 01/05/17 12:38 12:38 12:38 WBC Cancelled Corrected WBC (auto) Cancelled RBC Cancelled Hgb Cancelled Hct Cancelled MCV Cancelled MCH Cancelled MCHC Cancelled RDW Cancelled Plt Count Cancelled MPV Cancelled Total Counted Neutrophils % Cancelled Neutrophils % (Manual) Lymphocytes % Cancelled Lymphocytes % (Manual) Monocytes % Cancelled Monocytes % (Manual) Eosinophils % Cancelled Eosinophils % (Manual) Basophils % Cancelled Platelet Estimate Platelet Comment Cancelled Sodium 142 Potassium 4.7 Chloride 107 Carbon Dioxide 24 D Anion Gap 11 BUN 24 H D Creatinine 0.9 D Creat Clearance w eGFR > 60 Random Glucose 79 D Calcium 8.6 Phosphorus 3.5 Magnesium 2.2 Total Bilirubin 0.5 AST 17 D ALT 18 D Alkaline Phosphatase 93 D Creatine Kinase 112 Troponin I < 0.02 Total Protein 6.1 L Albumin 3.6 D TSH 3.04 D Urine Color Straw Urine Appearance Clear Urine pH 5.0 Ur Specific [place] 1.025 Urine Protein Negative Urine Glucose (UA) Negative Urine Ketones Negative Urine Blood Negative Urine Nitrite Negative Urine Bilirubin Negative Urine Urobilinogen Negative Opiates Screen Methadone Screen Barbiturate Screen Phencyclidine Screen Ur Amphetamines Screen MDMA (Ecstasy) Screen Benzodiazepines Screen Cocaine Screen U Marijuana (THC) Screen 01/05/17 01/05/17 12:38 16:15 WBC 11.2 H Corrected WBC (auto) RBC 4.27 D Hgb 13.2 D Hct 40.1 D MCV 93.7 MCH 31.0 MCHC 33.1 RDW 14.0 Plt Count 230 MPV 8.2 Total Counted 100 Neutrophils % No Result Required. Neutrophils % (Manual) 53.0 Lymphocytes % No Result Required. Lymphocytes % (Manual) 35.0 Monocytes % Monocytes % (Manual) 7 Eosinophils % Eosinophils % (Manual) 1.0 Basophils % Platelet Estimate Adequate Platelet Comment Sodium Potassium Chloride Carbon Dioxide Anion Gap BUN Creatinine Creat Clearance w eGFR Random Glucose Calcium Phosphorus Magnesium Total Bilirubin AST ALT Alkaline Phosphatase Creatine Kinase Troponin I Total Protein Albumin TSH Urine Color Urine Appearance Urine pH Ur Specific [place] Urine Protein Urine Glucose (UA) Urine Ketones Urine Blood Urine Nitrite Urine Bilirubin Urine Urobilinogen Opiates Screen Negative Methadone Screen Negative Barbiturate Screen Negative Phencyclidine Screen Negative Ur Amphetamines Screen Negative MDMA (Ecstasy) Screen Negative Benzodiazepines Screen Negative Cocaine Screen Negative U Marijuana (THC) Screen Negative Active Medications Generic Name Dose Route Start Last Admin Trade Name Freq PRN Reason Stop Dose Admin Acetaminophen 650 mg 01/06/17 13:19 01/06/17 13:47 Tylenol - PO 650 mg Q6H PRN Administration FEVER OR PAIN Aripiprazole 5 mg 01/06/17 10:00 01/06/17 09:31 Abilify PO 5 mg DAILY [facility] Administration Aspirin 81 mg 01/06/17 10:00 01/06/17 09:26 Asa - PO 81 mg DAILY [facility] Administration Atorvastatin Calcium 20 mg 01/06/17 22:00 Lipitor - PO HS [facility] Carbidopa/Levodopa 1 each 01/06/17 06:00 01/06/17 13:47 Sinemet 25/250 - PO 1 each TID [facility] Administration Clopidogrel Bisulfate 75 mg 01/06/17 10:00 01/06/17 09:26 Plavix - PO 75 mg DAILY [facility] Administration Gemfibrozil 600 mg 01/06/17 10:00 01/06/17 09:26 Lopid - PO 600 mg BID [facility] Administration Sodium Chloride 1,000 mls @ 75 mls/hr 01/05/17 22:30 01/06/17 14:52 Normal Saline - IV 75 mls/hr ASDIR [facility] Administration Metronidazole 500 mg in 100 mls @ 100 mls/hr 01/06/17 02:00 01/06/17 17:46 Flagyl 500mg Premixed Ivpb - IVPB 100 mls/hr Q8H-IV [facility] Administration Levofloxacin 500 mg in 100 mls @ 100 mls/hr 01/06/17 10:00 01/06/17 09:27 Levaquin 500 Mg Premixed Ivpb - IVPB 01/07/17 09:59 100 mls/hr DAILY [facility] Administration Levothyroxine Sodium 25 mcg 01/06/17 07:00 01/06/17 06:12 Synthroid - PO 25 mcg DAILY@0700 [facility] Administration Metoprolol Tartrate 25 mg 01/06/17 10:00 01/06/17 09:26 Lopressor - PO 25 mg DAILY [facility] Administration Montelukast Sodium 10 mg 01/06/17 22:00 Singulair - PO HS [facility] Pantoprazole Sodium 20 mg 01/06/17 10:00 01/06/17 09:26 Protonix - PO 20 mg DAILY [facility] Administration Risperidone 2 mg 01/06/17 10:00 01/06/17 09:26 Risperdal - PO 2 mg BID [facility] Administration Solifenacin 10 mg 01/06/17 10:00 01/06/17 09:25 Vesicare - PO 10 mg DAILY [facility] Administration Tiotropium [place] 1 puff 01/06/17 10:00 01/06/17 09:31 Spiriva - IH 1 puff DAILY [facility] Administration
[2017-01-06] MEDS ORDERED: LEVOFLOXACIN 500 MG IVPB 500 MG/100 ML BAG IVPB ONE (20:00)
--- NOTE | 2017-01-06 20:13 | CON.GI ---
Consult Consult Specialty:: GASTROENTEROLOGY - History of Present Illness Chief Complaint: STATES SHE HAS AN INFECTION IN HER ABDOMEN History of Present Illness: THIS IS A 71 YEAR OLD FEMALE FROM THE HISTORY IN THE CHART WAS SENT TO THE HOSPITAL FROM A [facility]ATRIC [facility]ISTED LIVVEING FACILITY FOR EITH KNEE PAIN, MUSCLE ACHES OR ABDOMINAL PAIN. WHATEVER THE CASE, IN THE ED SHE HAD LABS THAT REVEALED A ELEVATED WBC COUNT AND A CT SCAN THAT SHOWED A LARGE AMOUNT OF STOOL IN HER COLON AND INCREASED THICKNESS OF THE SIGMOID COLON (" A SEQUELA OF DIVERTICULITIS. THIS IS DEFINITELY NOT ACUTE"). PATIENT STATES SHE IS NOT CONSTIPATED HAS NO DIARRHEA AND HAS SOME SUPRAPUBIC DISCOMFORT. SHE WAS PLACED ON IV CIPRO AND FLAGYL. HER WBC COUNT IS NOW NORMAL. SHE HAS NEVER HAD A COLONOSCOPY SHE DENIES RECTAL BLEEDING WEIGHT LOSS OR CHANGE IN APPETITE. SHE TAKES A NUMBER OF MEDS THAT ARE CONSTIPATING. 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: Yes: Parkinson's Cardio/Vascular: Yes: CAD, HTN, Hyperlipdemia Pulmonary: Yes: Asthma Renal/: Yes: Renal Inusuff ...: No Psych: Yes: Anxiety, Depression, Schizophrenia Musculoskeletal: Yes: Other ENT: No: Allergic Rhinitis, Sinusitis, Other Endocrine: Yes: Hypothyroidism Dermatology: No: Basal Cell, Cellulitis, Eczema, Melanoma, Psoriasis, Squamous Cell, Other - Past Surgical History Past Surgical History: Yes: None - Alcohol/Substance Use Hx Alcohol Use: No History of Substance Use: reports: None - Smoking History Smoking history: Never smoked Have you smoked in the past 12 months: No Aproximately how many cigarettes per day: 0 - Social History Usual Living Arrangement: Prison ADL: Independent History of Recent Travel: No Home Medications - Allergies Allergies/Adverse Reactions: Allergies Allergy/AdvReac Type Severity Reaction Status Date / Time morphine Allergy Unknown Verified 01/05/17 10:48 Penicillins Allergy Unknown Verified 01/05/17 10:48 chocolate Allergy Unknown Uncoded 01/05/17 10:48 - Home Medications Home Medications: Ambulatory Orders Alendronate Na [Fosamax (Weekly)] 70 mg PO MO 04/19/16 Aripiprazole [Abilify -] 5 mg PO DAILY 04/19/16 Aspirin [ASA -] 81 mg PO DAILY 04/19/16 Atorvastatin Ca [Lipitor] 20 mg PO HS 04/19/16 Carbidopa/Levodopa [Carbidopa-Levodopa 25-250 Tab] 1 each PO TID 04/19/16 Clopidogrel Bisulfate [Plavix -] 75 mg PO DAILY 04/19/16 Gemfibrozil [Lopid] 600 mg PO BID 04/19/16 Levothyroxine [Synthroid -] 25 mcg PO DAILY 04/19/16 Metoprolol Tartrate [Lopressor -] 25 mg PO DAILY 04/19/16 Montelukast Na [Singulair -] 10 mg PO DAILY 04/19/16 Naproxen [Naprosyn -] 1,000 mg PO BID 04/19/16 Solifenacin Succinate [Vesicare -] 10 mg PO DAILY 04/19/16 Budesonide [Pulmicort Flexhaler] 180 mcg PO BID 05/12/16 Acetaminophen [Mapap] 1,000 mg PO BID 09/01/16 Albuterol 0.083% Nebulizer Shavon [Ventolin 0.083% Nebulizer Soln -] 1 amp NEB TID 09/01/16 Fluticasone Prop 0.05% Nasal [Flonase -] 2 spray NS DAILY 09/01/16 Pantoprazole Sodium [Protonix -] 20 mg PO DAILY 09/01/16 Tiotropium [place] [Spiriva] 2 inh PO DAILY 09/01/16 Tramadol HCl [Ultram -] 50 mg PO TID 09/01/16 Risperidone [Risperdal -] 2 mg PO BID #60 tablet 09/04/16 Unobtainable [Unobtainable] 01/05/17 Family Disease History - Family Disease History Family History: Unremarkable Review of Systems - Review of Systems Constitutional: reports: No Symptoms Eyes: reports: No Symptoms HENT: reports: No Symptoms Neck: reports: No Symptoms Cardiovascular: reports: No Symptoms Respiratory: reports: No Symptoms Gastrointestinal: reports: Abdominal Pain Genitourinary: reports: No Symptoms Breasts: reports: No Symptoms Reported Musculoskeletal: reports: Joint Pain, Muscle Pain Integumentary: reports: No Symptoms Neurological: reports: No Symptoms Endocrine: reports: No Symptoms Hematology/Lymphatic: reports: No Symptoms Psychiatric: reports: No Symptoms Physical Exam-GI Vital Signs: Vital Signs Temperature 98.2 F 01/06/17 14:23 Pulse Rate 52 L 01/06/17 14:23 Respiratory Rate 17 01/06/17 14:23 Blood Pressure 138/48 01/06/17 14:23 O2 Sat by Pulse Oximetry (%) 95 01/06/17 09:00 Constitutional: Yes: Other (OBESE) Eyes: Yes: Conjunctiva Clear HENT: Yes: Normocephalic Neck: Yes: Supple Cardiovascular: Yes: Regular Rate and Rhythm, Murmur Respiratory: Yes: Regular Gastrointestinal Inspection: Yes: WNL ...Auscultate: Yes: Normoactive Bowel Sounds ...Palpate: Yes: Soft Musculoskeletal: Yes: WNL Extremities: Yes: WNL Neurological: Yes: Alert, Oriented Psychiatric: Yes: Alert, Oriented Labs: CBC, BMP 01/06/17 06:20 01/06/17 06:20 Laboratory Tests 01/05/17 01/05/17 01/05/17 12:38 12:38 16:15 WBC 11.2 H RBC Hgb Hct MCV MCH MCHC RDW Plt Count MPV Total Counted Neutrophils % Neutrophils % (Manual) Lymphocytes % Lymphocytes % (Manual) Monocytes % (Manual) Eosinophils % (Manual) Metamyelocytes Platelet Estimate Sodium Potassium Chloride Carbon Dioxide Anion Gap BUN Creatinine Creat Clearance w eGFR Random Glucose Calcium Total Bilirubin AST ALT Alkaline Phosphatase Total Protein Albumin Urine Color Straw Urine Appearance Clear Urine pH 5.0 Ur Specific [place] 1.025 Urine Protein Negative Urine Glucose (UA) Negative Urine Ketones Negative Urine Blood Negative Urine Nitrite Negative Urine Bilirubin Negative Urine Urobilinogen Negative Ur Leukocyte Esterase 2+ H Urine RBC 0-2 Urine WBC 20-30 Ur Epithelial Cells Few Urine Bacteria Few Opiates Screen Negative Methadone Screen Negative Barbiturate Screen Negative Phencyclidine Screen Negative Ur Amphetamines Screen Negative MDMA (Ecstasy) Screen Negative Benzodiazepines Screen Negative Cocaine Screen Negative U Marijuana (THC) Screen Negative 01/06/17 01/06/17 06:20 06:20 WBC 10.2 H RBC 4.47 Hgb 13.9 Hct 41.8 MCV 93.5 MCH 31.2 MCHC 33.3 RDW 13.8 Plt Count 239 MPV 8.2 Total Counted 100 Neutrophils % No Result Required. Neutrophils % (Manual) 66.0 D Lymphocytes % No Result Required. Lymphocytes % (Manual) 29.0 Monocytes % (Manual) 5 Eosinophils % (Manual) 2.0 D Metamyelocytes 1 Platelet Estimate Adequate Sodium 141 Potassium 4.0 Chloride 109 H Carbon Dioxide 24 Anion Gap 8 BUN 16 D Creatinine 0.8 Creat Clearance w eGFR > 60 Random Glucose 101 D Calcium 8.0 L Total Bilirubin 0.6 AST 6 L D ALT 9 L D Alkaline Phosphatase 96 Total Protein 5.7 L Albumin 3.3 L Urine Color Urine Appearance Urine pH Ur Specific [place] Urine Protein Urine Glucose (UA) Urine Ketones Urine Blood Urine Nitrite Urine Bilirubin Urine Urobilinogen Ur Leukocyte Esterase Urine RBC Urine WBC Ur Epithelial Cells Urine Bacteria Opiates Screen Methadone Screen Barbiturate Screen Phencyclidine Screen Ur Amphetamines Screen MDMA (Ecstasy) Screen Benzodiazepines Screen Cocaine Screen U Marijuana (THC) Screen Imaging - Results Cat Scan: Image Reviewed Problem List - Problems (1) Diverticulosis large intestine w/o perforation or abscess w/o bleeding Assessment/Plan: I DO NOT BELIEVE SHE HAS A DIVERTICULITIS BUT SUBTLE EARLY CASES CAN BE MISSED ON CT SCAN. I WOULD THEREFORE COMPLETE A FULL 10 COURSE OF ANTIBIOTICS. I THINK SHE CAN BE SWITCHED TO ORAL ANTIBIOTICS TOMORROW. I WOULD HOLD HER PLAVIX IF POSSIBLE GIVEN POSSIBLE INFLAMMATION AND THE USE OF HER PSYCH MEDS WILL NORMALLY INCREASE THE RISK OF BLEEDING. THIS CAN BE RESTARTED IN 5 DAYS. I WOULD ALSO START ADVANCING HER DIET TO A LOW RESIDUE DIET. BY THURSDAY SHE CAN BE DISCHARGED HOME WITH ORAL ANTIBIOTICS FOR A TOTAL OF TEN DAYS INCLUDING THE DAYS IN THE HOSPITAL. THE LOW RESIDUE CAN BE CHANGE TO HIGH FIBER DIET IN ONE WEEK. SHE WILL NEED A COLONOSCOPY IN 6 TO 8 WEEKS. UNFORTUNATELY I WILL BE CLOSING MY OFFICE IN [place] THIS WEEK AND WILL BE RESIGNING FROM THE MEDICAL STAFF ON THURSDAY. THIS PATIENT WOULD NEED TO BE REFERRED TO ANY OF THE OTHER [facility] GASTROENTEROLOGISTS SUCH JOSE GARBER DO. Code(s): K57.30 - DVRTCLOS OF LG INT W/O PERFORATION OR ABSCESS W/O BLEEDING (2) Abnormal finding on GI tract imaging Code(s): R93.3 - ABNORMAL FINDINGS ON DX IMAGING OF PRT DIGESTIVE TRACT (3) Constipation Code(s): K59.00 - CONSTIPATION, UNSPECIFIED
[2017-01-06] MEDS: ATORVASTATIN CA 20 MG TABLET (FP) PO SCH (21:36)
[2017-01-06] MEDS: MONTELUKAST NA 10 MG TABLET PO SCH (21:36)
[2017-01-07] MEDS: METRONIDAZOLE 500 MG PREMIXED 500 MG/100 ML MG IVPB SCH ×2 (01:46→11:00)
[2017-01-07] MEDS: SODIUM CHLORIDE 1,000 ML IV SCH ×2 (01:47→16:50)
[2017-01-07] MEDS: LEVOTHYROXINE NA 25 MCG TABLET (FP) PO SCH ×2 (06:55→07:21)
[2017-01-07] MEDS: CARBIDOPA/LEVODOPA 25/250 TABLET (FP) PO SCH ×4 (06:55→21:25)
[2017-01-07] MEDS: ACETAMINOPHEN 325 MG TABLET (FP) PO PRN (07:38)
[2017-01-07] MEDS: risperiDONE 1 MG TABLET (FP) PO SCH ×2 (11:00→21:22)
[2017-01-07] MEDS: SOLIFENACIN SUCCINATE 5 MG TAB (FP) PO SCH (11:00)
[2017-01-07] MEDS: ARIPiprazole 5 MG TABLET (FP) PO SCH (11:00)
[2017-01-07] MEDS: PANTOPRAZOLE 20 MG TABLET (FP) PO SCH (11:00)
[2017-01-07] MEDS: METOPROLOL TARTRATE 25 MG TABLET (FP) PO SCH (11:00)
[2017-01-07] MEDS: GEMFIBROZIL 600 MG TABLET (FP) PO SCH ×2 (11:00→21:24)
[2017-01-07] MEDS: ASPIRIN 81 MG CHEWABLE TABLETS PO SCH (11:00)
[2017-01-07] MEDS: TIOTROPIUM BROMIDE 18 MCG/INH (DEVICE W/ 5 CAPSULES) IH SCH (11:00)
[2017-01-07] MEDS ORDERED: PT OWN MED DRAWER 7, Y5N ONE ×3 (11:01→21:16)
[2017-01-07] MEDS: CLOPIDOGREL BISULFATE 75 MG TABLET (FP) PO SCH (14:43)
[2017-01-07] MEDS ORDERED: BISACODYL 10 MG SUPP.RECT RC ONE (15:30)
--- NOTE | 2017-01-07 17:13 | PN ---
Progress Note, Physician Chief Complaint: Infectious Disease f/u: History of Present Illness: Pt states she feels much better. Is afebrile, denies abd pain/n/v/d. No dysuria. - Current Medication List Current Medications: Active Medications Acetaminophen (Tylenol -) 650 mg PO Q6H PRN PRN Reason: FEVER OR PAIN Last Admin: 01/07/17 07:38 Dose: 650 mg Aripiprazole (Abilify) 5 mg PO DAILY [facility] Last Admin: 01/07/17 11:00 Dose: 5 mg Aspirin (Asa -) 81 mg PO DAILY [facility] Last Admin: 01/07/17 11:00 Dose: 81 mg Atorvastatin Calcium (Lipitor -) 20 mg PO HS [facility] Last Admin: 01/06/17 21:36 Dose: 20 mg Carbidopa/Levodopa (Sinemet 25/250 -) 1 each PO TID [facility] Last Admin: 01/07/17 14:40 Dose: 1 each Clopidogrel Bisulfate (Plavix -) 75 mg PO DAILY [facility] Last Admin: 01/07/17 14:43 Dose: Not Given Gemfibrozil (Lopid -) 600 mg PO BID [facility] Last Admin: 01/07/17 11:00 Dose: 600 mg Sodium Chloride (Normal Saline -) 1,000 mls @ 75 mls/hr IV ASDIR [facility] Last Admin: 01/07/17 16:50 Dose: 75 mls/hr Metronidazole (Flagyl 500mg Premixed Ivpb -) 500 mg in 100 mls @ 100 mls/hr IVPB Q8H-IV [facility] Last Admin: 01/07/17 11:00 Dose: 100 mls/hr Levothyroxine Sodium (Synthroid -) 25 mcg PO DAILY@0700 [facility] Last Admin: 01/07/17 07:21 Dose: 25 mcg Metoprolol Tartrate (Lopressor -) 25 mg PO DAILY [facility] Last Admin: 01/07/17 11:00 Dose: 25 mg Montelukast Sodium (Singulair -) 10 mg PO HS [facility] Last Admin: 01/06/17 21:36 Dose: 10 mg Pantoprazole Sodium (Protonix -) 20 mg PO DAILY [facility] Last Admin: 01/07/17 11:00 Dose: 20 mg Risperidone (Risperdal -) 2 mg PO BID [facility] Last Admin: 01/07/17 11:00 Dose: 2 mg Solifenacin (Vesicare -) 10 mg PO DAILY [facility] Last Admin: 01/07/17 11:00 Dose: 10 mg Tiotropium [place] (Spiriva -) 1 puff IH DAILY [facility] Last Admin: 01/07/17 11:00 Dose: 1 puff - Objective Vital Signs: Vital Signs Temperature 98.8 F 01/07/17 14:30 Pulse Rate 60 01/07/17 14:30 Respiratory Rate 18 01/07/17 14:30 Blood Pressure 141/54 01/07/17 14:30 O2 Sat by Pulse Oximetry (%) 97 01/07/17 09:00 Constitutional: Yes: No Distress, Calm Cardiovascular: Yes: Regular Rate and Rhythm Respiratory: Yes: CTA Bilaterally Gastrointestinal: Yes: Normal Bowel Sounds, Soft Genitourinary: Yes: WNL Extremities: Yes: WNL Edema: No Integumentary: Yes: WNL Neurological: Yes: Alert, Oriented Labs: CBC, BMP 01/06/17 06:20 01/06/17 06:20 Problem List - Problems (1) Diverticulitis Code(s): K57.92 - DVTRCLI OF INTEST, PART UNSP, W/O PERF OR ABSCESS W/O BLEED (2) Weakness Code(s): R53.1 - WEAKNESS (3) Diarrhea Code(s): R19.7 - DIARRHEA, UNSPECIFIED Qualifiers: Diarrhea type: unspecified type Qualified Code(s): R19.7 - Diarrhea, unspecified (4) Bipolar disorder Code(s): F31.9 - BIPOLAR DISORDER, UNSPECIFIED Qualifiers: Active/Remission status: remission status unspecified Qualified Code(s): F31.9 - Bipolar disorder, unspecified (5) Coronary artery disease Code(s): I25.10 - ATHSCL HEART DISEASE OF [place] CORONARY ARTERY W/O ANG PCTRS Qualifiers: Coronary Disease-Associated Artery/Lesion type: unspecified vessel or lesion type (6) Parkinsonism Code(s): G20 - PARKINSON'S DISEASE Assessment/Plan 71 y.o. female presented with nonspecific abd pain, weakness. Currently doing well. Questionable Diverticulitis - GI eval noted - agree with recommendations - switch to levaquin 500 mg po daily, flagyl 500 mg po TID x one more wk - afebrile, without leukocytosis stable at this time
--- NOTE | 2017-01-07 17:31 | PN ---
Progress Note, Physician History of Present Illness: feeling good - Current Medication List Current Medications: Active Medications Acetaminophen (Tylenol -) 650 mg PO Q6H PRN PRN Reason: FEVER OR PAIN Last Admin: 01/07/17 07:38 Dose: 650 mg Aripiprazole (Abilify) 5 mg PO DAILY [facility] Last Admin: 01/07/17 11:00 Dose: 5 mg Aspirin (Asa -) 81 mg PO DAILY [facility] Last Admin: 01/07/17 11:00 Dose: 81 mg Atorvastatin Calcium (Lipitor -) 20 mg PO HS [facility] Last Admin: 01/06/17 21:36 Dose: 20 mg Carbidopa/Levodopa (Sinemet 25/250 -) 1 each PO TID [facility] Last Admin: 01/07/17 14:40 Dose: 1 each Clopidogrel Bisulfate (Plavix -) 75 mg PO DAILY [facility] Last Admin: 01/07/17 14:43 Dose: Not Given Gemfibrozil (Lopid -) 600 mg PO BID [facility] Last Admin: 01/07/17 11:00 Dose: 600 mg Sodium Chloride (Normal Saline -) 1,000 mls @ 75 mls/hr IV ASDIR [facility] Last Admin: 01/07/17 16:50 Dose: 75 mls/hr Levofloxacin (Levaquin -) 500 mg PO DAILY@0600 [facility] Levothyroxine Sodium (Synthroid -) 25 mcg PO DAILY@0700 [facility] Last Admin: 01/07/17 07:21 Dose: 25 mcg Metoprolol Tartrate (Lopressor -) 25 mg PO DAILY [facility] Last Admin: 01/07/17 11:00 Dose: 25 mg Metronidazole (Flagyl -) 500 mg PO TID [facility] Montelukast Sodium (Singulair -) 10 mg PO [facility] Last Admin: 01/06/17 21:36 Dose: 10 mg Pantoprazole Sodium (Protonix -) 20 mg PO DAILY [facility] Last Admin: 01/07/17 11:00 Dose: 20 mg Risperidone (Risperdal -) 2 mg PO BID [facility] Last Admin: 01/07/17 11:00 Dose: 2 mg Solifenacin (Vesicare -) 10 mg PO DAILY [facility] Last Admin: 01/07/17 11:00 Dose: 10 mg Tiotropium [place] (Spiriva -) 1 puff IH DAILY [facility] Last Admin: 01/07/17 11:00 Dose: 1 puff - Objective Vital Signs: Vital Signs Temperature 98.8 F 01/07/17 14:30 Pulse Rate 60 01/07/17 14:30 Respiratory Rate 18 01/07/17 14:30 Blood Pressure 141/54 01/07/17 14:30 O2 Sat by Pulse Oximetry (%) 97 01/07/17 09:00 Constitutional: Yes: No Distress HENT: Yes: Atraumatic Neck: Yes: Supple Cardiovascular: Yes: Regular Rate and Rhythm Respiratory: Yes: CTA Bilaterally Gastrointestinal: Yes: Normal Bowel Sounds Extremities: Yes: WNL Neurological: Yes: Alert, Oriented Labs: CBC, BMP 01/06/17 06:20 01/06/17 06:20 Problem List - Problems (1) Diverticulitis Assessment/Plan: low fiber diet po abx Code(s): K57.92 - DVTRCLI OF INTEST, PART UNSP, W/O PERF OR ABSCESS W/O BLEED (2) Weakness Assessment/Plan: feeling better Code(s): R53.1 - WEAKNESS (3) Anxiety Code(s): F41.9 - ANXIETY DISORDER, UNSPECIFIED (4) Bipolar disorder Code(s): F31.9 - BIPOLAR DISORDER, UNSPECIFIED Qualifiers: Active/Remission status: remission status unspecified Qualified Code(s): F31.9 - Bipolar disorder, unspecified (5) COPD (chronic obstructive pulmonary disease) Code(s): J44.9 - CHRONIC OBSTRUCTIVE PULMONARY DISEASE, UNSPECIFIED Qualifiers: Emphysema type: unspecified (6) Coronary artery disease Code(s): I25.10 - ATHSCL HEART DISEASE OF [place] CORONARY ARTERY W/O ANG PCTRS Qualifiers: Coronary Disease-Associated Artery/Lesion type: unspecified vessel or lesion type (7) GERD (gastroesophageal reflux disease) Code(s): K21.9 - GASTRO-ESOPHAGEAL REFLUX DISEASE WITHOUT ESOPHAGITIS Qualifiers: (8) Hyperlipidemia Code(s): E78.5 - HYPERLIPIDEMIA, UNSPECIFIED (9) Hypothyroid Code(s): E03.9 - HYPOTHYROIDISM, UNSPECIFIED (10) Parkinsonism Code(s): G20 - PARKINSON'S DISEASE
[2017-01-07] MEDS: LEVOFLOXACIN 500 MG TABLET (FP) PO SCH (17:36)
[2017-01-07] MEDS: metroNIDAZOLE 250 MG TABLET PO SCH (17:36)
--- NOTE | 2017-01-07 17:45 | DS ---
Physical Examination Vital Signs: Vital Signs Temperature 98.8 F 01/07/17 14:30 Pulse Rate 60 01/07/17 14:30 Respiratory Rate 18 01/07/17 14:30 Blood Pressure 141/54 01/07/17 14:30 O2 Sat by Pulse Oximetry (%) 97 01/07/17 09:00 Labs: CBC, BMP 01/06/17 06:20 01/06/17 06:20 Discharge Summary Reason For Visit: DIVERTCULITIS Current Active Problems Abnormal finding on GI tract imaging (Acute) Constipation (Acute) Diverticulitis (Acute) Diverticulosis large intestine w/o perforation or abscess w/o bleeding (Acute) Weakness (Acute) - Instructions Referrals: Monica Jimenez MD [Primary Care Provider] - - Home Medications Comprehensive Discharge Medication List: Ambulatory Orders Alendronate Na [Fosamax (Weekly)] 70 mg PO MO 04/19/16 Aripiprazole [Abilify -] 5 mg PO DAILY 04/19/16 Aspirin [ASA -] 81 mg PO DAILY 04/19/16 Atorvastatin Ca [Lipitor] 20 mg PO HS 04/19/16 Carbidopa/Levodopa [Carbidopa-Levodopa 25-250 Tab] 1 each PO TID 04/19/16 Clopidogrel Bisulfate [Plavix -] 75 mg PO DAILY 04/19/16 Gemfibrozil [Lopid] 600 mg PO BID 04/19/16 Levothyroxine [Synthroid -] 25 mcg PO DAILY 04/19/16 Metoprolol Tartrate [Lopressor -] 25 mg PO DAILY 04/19/16 Montelukast Na [Singulair -] 10 mg PO DAILY 04/19/16 Naproxen [Naprosyn -] 1,000 mg PO BID 04/19/16 Solifenacin Succinate [Vesicare -] 10 mg PO DAILY 04/19/16 Budesonide [Pulmicort Flexhaler] 180 mcg PO BID 05/12/16 Acetaminophen [Mapap] 1,000 mg PO BID 09/01/16 Albuterol 0.083% Nebulizer Shavon [Ventolin 0.083% Nebulizer Soln -] 1 amp NEB TID 09/01/16 Fluticasone Prop 0.05% Nasal [Flonase -] 2 spray NS DAILY 09/01/16 Pantoprazole Sodium [Protonix -] 20 mg PO DAILY 09/01/16 Tiotropium [place] [Spiriva] 2 inh PO DAILY 09/01/16 Tramadol HCl [Ultram -] 50 mg PO TID 09/01/16 Risperidone [Risperdal -] 2 mg PO BID #60 tablet 09/04/16 Levofloxacin [Levaquin -] 500 mg PO DAILY@0600 #7 tablet 01/07/17 Metronidazole [Flagyl -] 500 mg PO TID #21 tablet 01/07/17 [facility]
[2017-01-07] MEDS: MONTELUKAST NA 10 MG TABLET PO SCH (21:22)
[2017-01-07] MEDS: ATORVASTATIN CA 20 MG TABLET (FP) PO SCH (21:23)
[2017-01-08] MEDS: SODIUM CHLORIDE 1,000 ML IV SCH (05:42)
[2017-01-08] MEDS: LEVOFLOXACIN 500 MG TABLET (FP) PO SCH (06:22)
[2017-01-08] MEDS: metroNIDAZOLE 250 MG TABLET PO SCH ×2 (06:22→13:40)
[2017-01-08] MEDS: CARBIDOPA/LEVODOPA 25/250 TABLET (FP) PO SCH ×2 (06:22→13:40)
[2017-01-08] MEDS: LEVOTHYROXINE NA 25 MCG TABLET (FP) PO SCH (06:22)
[2017-01-08 09:07] VITALS: BP 121/83; PULSE 101; TEMP 97.5
[2017-01-08] MEDS ORDERED: PT OWN MED DRAWER 7, Y5N ONE (09:55)
[2017-01-08] MEDS: ACETAMINOPHEN 325 MG TABLET (FP) PO PRN (09:58)
[2017-01-08] MEDS: TIOTROPIUM BROMIDE 18 MCG/INH (DEVICE W/ 5 CAPSULES) IH SCH (09:58)
[2017-01-08] MEDS: risperiDONE 1 MG TABLET (FP) PO SCH (09:59)
[2017-01-08] MEDS: METOPROLOL TARTRATE 25 MG TABLET (FP) PO SCH (10:00)
[2017-01-08] MEDS: SOLIFENACIN SUCCINATE 5 MG TAB (FP) PO SCH (10:00)
[2017-01-08] MEDS: PANTOPRAZOLE 20 MG TABLET (FP) PO SCH (10:00)
[2017-01-08] MEDS: GEMFIBROZIL 600 MG TABLET (FP) PO SCH (10:00)
[2017-01-08] MEDS: CLOPIDOGREL BISULFATE 75 MG TABLET (FP) PO SCH (10:00)
[2017-01-08] MEDS: ARIPiprazole 5 MG TABLET (FP) PO SCH (10:00)
[2017-01-08] MEDS: ASPIRIN 81 MG CHEWABLE TABLETS PO SCH (10:00)
--- NOTE | 2017-01-08 17:26 | DS ---
Physical Examination Vital Signs: Vital Signs Temperature 97.5 F L 01/08/17 09:06 Pulse Rate 101 H 01/08/17 09:06 Respiratory Rate 20 01/08/17 09:06 Blood Pressure 121/83 01/08/17 09:06 O2 Sat by Pulse Oximetry (%) 97 01/08/17 09:00 Neck: Yes: Supple Cardiovascular: Yes: Regular Rate and Rhythm Respiratory: Yes: CTA Bilaterally Gastrointestinal: Yes: Normal Bowel Sounds Extremities: Yes: WNL Neurological: Yes: Alert, Oriented Labs: CBC, BMP 01/06/17 06:20 01/06/17 06:20 Discharge Summary Reason For Visit: DIVERTCULITIS - Instructions Referrals: Monica Jimenez MD [Primary Care Provider] - José Miguel Bonds MD [Staff Physician] - Disposition: HOME - Home Medications Comprehensive Discharge Medication List: Ambulatory Orders Alendronate Na [Fosamax (Weekly)] 70 mg PO MO 04/19/16 Aripiprazole [Abilify -] 5 mg PO DAILY 04/19/16 Aspirin [ASA -] 81 mg PO DAILY 04/19/16 Atorvastatin Ca [Lipitor] 20 mg PO HS 04/19/16 Carbidopa/Levodopa [Carbidopa-Levodopa 25-250 Tab] 1 each PO TID 04/19/16 Clopidogrel Bisulfate [Plavix -] 75 mg PO DAILY 04/19/16 Gemfibrozil [Lopid] 600 mg PO BID 04/19/16 Levothyroxine [Synthroid -] 25 mcg PO DAILY 04/19/16 Metoprolol Tartrate [Lopressor -] 25 mg PO DAILY 04/19/16 Montelukast Na [Singulair -] 10 mg PO DAILY 04/19/16 Naproxen [Naprosyn -] 1,000 mg PO BID 04/19/16 Solifenacin Succinate [Vesicare -] 10 mg PO DAILY 04/19/16 Budesonide [Pulmicort Flexhaler] 180 mcg PO BID 05/12/16 Acetaminophen [Mapap] 1,000 mg PO BID 09/01/16 Albuterol 0.083% Nebulizer Shavon [Ventolin 0.083% Nebulizer Soln -] 1 amp NEB TID 09/01/16 Fluticasone Prop 0.05% Nasal [Flonase -] 2 spray NS DAILY 09/01/16 Pantoprazole Sodium [Protonix -] 20 mg PO DAILY 09/01/16 Tiotropium [place] [Spiriva] 2 inh PO DAILY 09/01/16 Tramadol HCl [Ultram -] 50 mg PO TID 09/01/16 Risperidone [Risperdal -] 2 mg PO BID #60 tablet 09/04/16 Levofloxacin [Levaquin -] 500 mg PO DAILY@0600 #7 tablet 01/07/17 Metronidazole [Flagyl -] 500 mg PO TID #21 tablet 01/07/17 dc
== END 2017-01-08 14:01 | disposition home or self-care (01) | DRG 392 ==
LOC: JER 09:24 → JERBED 19:10 → J6S 21:33 → OBSVTOIN 22:14
PROVIDERS: ADMIT Internal Medicine; ATTEND Internal Medicine
DX: K57.92 Diverticulitis of intestine, part unspecified, without perforation or abscess without bleeding (principal); R53.1 Weakness; F41.9 Anxiety disorder, unspecified; F31.9 Bipolar disorder, unspecified; J44.9 Chronic obstructive pulmonary disease, unspecified; I25.10 Atherosclerotic heart disease of native coronary artery without angina pectoris; K21.9 Gastro-esophageal reflux disease without esophagitis; E78.5 Hyperlipidemia, unspecified; E03.9 Hypothyroidism, unspecified; G20 Parkinson's disease; K59.00 Constipation, unspecified
CPT/HCPCS: 36415; 71010-TC; 74177-TC; 80053; 80307; 81003; 81015; 82550; 83735; 84100; 84443; 84484; 85025; 87086; 93005; 93010; 99285-25; G0378; J2794

== ENCOUNTER 2017-04-23 15:22 | Emergency (ER) | payer OTHER ==
[2017-04-23 16:32] VITALS: BP 128/45; PULSE 71; TEMP 98.2; BMI 31.8
--- NOTE | 2017-04-23 19:47 | PDOC ---
History of Present Illness - General Chief Complaint: Pain Stated Complaint: ABD PAIN Time Seen by Provider: 04/23/17 19:42 - History of Present Illness Initial Comments: 04/23/17 20:20 The patient is a 72 year old female with a history of COPD, HTN, HLD, Anemia, Diverticulitis, GERD, who presents for evaluation abdominal pain, nausea, vomiting, and diarrhea. The patient reports a 1 day history of RLQ crampy abdominal pain with associated 2 episodes of non-bloody diarrhea and nausea with 1 episode of non-bloody, non-bilious vomiting prompting her presentation to the ED for evaluation. She notes that her symptoms are similar to her prior presentations of diverticulitis. She otherwise denies fevers, chills, SOB, chest pain, or changes with urination. Past History - Past Medical History Allergies/Adverse Reactions: Allergies Allergy/AdvReac Type Severity Reaction Status Date / Time morphine Allergy Unknown Verified 01/05/17 10:48 Penicillins Allergy Unknown Verified 01/05/17 10:48 chocolate Allergy Unknown Uncoded 01/05/17 10:48 Home Medications: Ambulatory Orders Alendronate Na [Fosamax (Weekly)] 70 mg PO MO 04/19/16 Aripiprazole [Abilify -] 5 mg PO DAILY 04/19/16 Aspirin [ASA -] 81 mg PO DAILY 04/19/16 Atorvastatin Ca [Lipitor] 20 mg PO HS 04/19/16 Carbidopa/Levodopa [Carbidopa-Levodopa 25-250 Tab] 1 each PO TID 04/19/16 Clopidogrel Bisulfate [Plavix -] 75 mg PO DAILY 04/19/16 Gemfibrozil [Lopid] 600 mg PO BID 04/19/16 Levothyroxine [Synthroid -] 25 mcg PO DAILY 04/19/16 Metoprolol Tartrate [Lopressor -] 25 mg PO DAILY 04/19/16 Montelukast Na [Singulair -] 10 mg PO DAILY 04/19/16 Naproxen [Naprosyn -] 1,000 mg PO BID 04/19/16 Solifenacin Succinate [Vesicare -] 10 mg PO DAILY 04/19/16 Budesonide [Pulmicort Flexhaler] 180 mcg PO BID 05/12/16 Acetaminophen [Mapap] 1,000 mg PO BID 09/01/16 Albuterol 0.083% Nebulizer Shavon [Ventolin 0.083% Nebulizer Soln -] 1 amp NEB TID 09/01/16 Fluticasone Prop 0.05% Nasal [Flonase -] 2 spray NS DAILY 09/01/16 Pantoprazole Sodium [Protonix -] 20 mg PO DAILY 09/01/16 Tiotropium [place] [Spiriva] 2 inh PO DAILY 09/01/16 traMADol HCL [Ultram -] 50 mg PO TID 09/01/16 Risperidone [Risperdal -] 2 mg PO BID #60 tablet 09/04/16 levoFLOXacin [Levaquin -] 500 mg PO DAILY@0600 #7 tablet 01/07/17 metroNIDAZOLE [Flagyl -] 500 mg PO TID #21 tablet 01/07/17 Dicyclomine HCl [Bentyl -] 10 mg PO Q8H #9 capsule 04/24/17 Anemia: Yes Asthma: Yes Cancer: No Cardiac Disorders: (hx of chest pain) CVA: No COPD: Yes (PT STATED) CHF: No Dementia: No Diabetes: No GI Disorders: Yes (GERD) Disorders: Yes (incontinence) HTN: Yes Hypercholesterolemia: Yes Liver Disease: No Psychiatric Problems: Yes (BiPolar) Seizures: Yes Thyroid Disease: Yes (HYPO.) - Surgical History Abdominal Surgery: No Appendectomy: No Cardiac Surgery: No Cholecystectomy: No Lung Surgery: No Neurologic Surgery: No Orthopedic Surgery: No - Immunization History Td Vaccination: (unknown) Immunization Up to Date: No - Suicide/Smoking/Psychosocial Hx Smoking Status: No Smoking History: Never smoked Years of Tobacco Use: 0 Have you smoked in the past 12 months: No Number of Cigarettes Smoked Daily: 0 Cigars Per Day: 0 Information on smoking cessation initiated: No Hx Alcohol Use: No Drug/Substance Use Hx: No Substance Use Type: None Hx Substance Use Treatment: No Review of Systems - Review of Systems Comments:: 04/23/17 20:25 Constitutional: No fevers, chills, fatigue, malaise HEENT: No Rhinorrhea, nasal congestion, visual changes Cardiovascular: No chest pain, syncope, palpitations, lightheadedness Respiratory: No Cough, SOB, Hemoptysis, Gastrointestinal: RLQ abdominal pain, nausea, vomiting, diarrhea. No Constipation, Melena Genitourinary: No Dysuria, Frequency, Urgency, Hesitancy, Hematuria, Flank pain Musculoskeletal: No Myalgia, arthralgia Skin: No rashes, itching, bruising, pallor Neurologic: No Headache, Dizziness, Numbness, Weakness, or Tingling Psychiatric: No Hallucinations. No SI or HI *Physical Exam - Vital Signs Last Vital Signs Temp Pulse Resp BP Pulse Ox 98.2 F 71 16 128/45 93 L 04/23/17 16:28 04/23/17 16:28 04/23/17 16:28 04/23/17 16:28 04/23/17 16:28 - Physical Exam Comments: 04/23/17 20:27 General Appearance: Nourished. No Apparent Distress HEENT: EOMI, VANI. No Pharyngeal Erythema, Tonsillar Exudate, Tonsillar Erythema Neck: No Cervical Lymphadenopathy Respiratory/Chest: Lungs Clear, Normal Breath Sounds. No Crackles, Rales, Rhonchi, Wheezing Cardiovascular: Regular Rhythm, Regular Rate. No Murmur, Gallops, Rubs Gastrointestinal/Abdominal: Normal Bowel Sounds, Soft. Mild tenderness to palpation in the right lower quadrant. No Guarding, Rebound, Musculoskeletal: No CVA Tenderness Extremity: Normal Capillary Refill Integumentary: Normal Color, Dry, Warm Neurologic: Fully Oriented, Alert, Normal Mood/Affect, Normal Response, Heart Score/ECG Review #1 ECG reviewed & interpreted by me at: 23:20 General ECG Interpretation: Sinus Rhythm, Normal Rate, Normal Intervals, No acute ischemic changes ED Treatment Course - LABORATORY CBC & Chemistry Diagram: 04/23/17 20:20 04/23/17 20:20 Medical Decision Making - Medical Decision Making 04/23/17 20:29 The patient is a 72 year old female with a history of COPD, HTN, HLD, Anemia, Diverticulitis, GERD, who presents for evaluation abdominal pain, nausea, vomiting, and diarrhea. Differential includes but is not limited to: Diverticulitis, Appendecitis, Gastroenteritis, infectious, metabolic derangement. Given the patient's history of diverticulitis with similar presenting symptoms, it is possible her symptoms are due to another diverticulitis. We will obtain a cbc, cmp, coags, blood cultures and a CT abdomen/pelvis with contrast to evaluate further. We will treat with iv fluids and zofran in the meantime and continue to monitor and reassess. 04/24/17 01:20 CBC, cmp, coags are unremarkable. CT abdomen/pelvis demonstrated a normal appendix and diverticulosis without evidence of diverticulitis or colitis as preliminarily read by the oncall radiologist. The patient's symptoms are likely due to a viral Gastroenteritis. She is resting comfortably on exam. We are comfortable discharging the patient home at this time with primary care provider and GI follow up. We discussed the results, plan, and return precautions with the patient who voiced understanding and is agreeable with the plan. *DC/Admit/Observation/Transfer Diagnosis at time of Disposition: Diarrhea Qualifiers: Diarrhea type: unspecified type Qualified Code(s): R19.7 - Diarrhea, unspecified Abdominal pain Qualifiers: Abdominal location: unspecified location Qualified Code(s): R10.9 - Unspecified abdominal pain - Discharge Dispostion Disposition: HOME Condition at time of disposition: Good Admit: No - Prescriptions Prescriptions: Dicyclomine HCl [Bentyl -] 10 mg PO Q8H #9 capsule - Referrals Referrals: Pnacho Ro MD [Staff Physician] - Dutch Acuna MD [Staff Physician] - - Patient Instructions Printed Discharge Instructions: DI for Viral Gastroenteritis -- Adult Additional Instructions: Please return to the ER if you experience concerning or worsening symptoms including worsening abdominal pain, vomiting, or fevers. Your lab results were normal here in the ER. Your CT scan was normal here in the ER. Your symptoms are likely due to a viral gastroenteritis. We have sent a prescription for bentyl to your pharmacy that you may take every 8 hours for abdominal discomfort. Please call to schedule a follow up appointment with your primary care provider and a gi specialist within 2-3 days to discuss your ER visit and further management of your symptoms. - Post Discharge Activity
[2017-04-23] MEDS ORDERED: SODIUM CHLORIDE 1,000 ML IV STA (19:48)
[2017-04-23] MEDS ORDERED: ONDANSETRON 4 MG/2 ML VIAL IVPUSH ONE (19:48)
[2017-04-23] MEDS ORDERED: ONDANSETRON 4 MG/2 ML VIAL ONE (19:56)
--- NOTE | 2017-04-23 20:10 | PDOC ---
Attending Attestation - Resident Resident Name: Jason Sheets - ED Attending Attestation I have performed the following: I have examined & evaluated the patient, The case was reviewed & discussed with the resident, I agree w/resident's findings & plan, Exceptions are as noted <Brendan Freeman - Last Filed: 04/23/17 20:10> - HPI HPI: 04/23/17 20:52 The patient is a 72-year-old female, with a significant past medical history of HTN, hypercholesterolemia, diverticulitis, gastritis, and gerd, who presents to the ED with right lower quadrant pain that began yesterday. The patient's pain is associated with nausea. She reports multiple episodes of diarrhea and one episode of nonbilious, nonbloody vomiting yesterday. The patient states that her current symptoms are similar to what she has experienced with her previous episodes of diverticulitis. The patient denies any fever or chills. Denies any chest pain or shortness of breath. Denies any changes in urination. Allergies: morphine, penicillins, chocolate Social History: No reported tobacco, alcohol, or drug use. Surgical History: No reported surgeries PCP: N/A - Physicial Exam PE: 04/23/17 20:52 GENERAL: Well developed, well nourished. Awake and alert. No acute distress. HEENT: Normocephalic, atraumatic. PERRLA, EOMI. No conjunctival pallor. Sclera are non- icteric. Moist mucous membranes. Oropharynx is clear. NECK: Supple. Full ROM. No JVD. Carotid pulses 2+ and symmetric, without bruits. No thyromegaly. No lymphadenopathy. CARDIOVASCULAR: Regular rate and rhythm. No murmurs, rubs, or gallops. Distal pulses are 2+ and symmetric. PULMONARY: No evidence of respiratory distress. Lungs clear to auscultation bilaterally. No wheezing, rales or rhonchi. ABDOMINAL: Soft. Non-tender. Non-distended. No rebound or guarding. No organomegaly. Normoactive bowel sounds. MUSCULOSKELETAL Normal range of motion at all joints. No bony deformities or tenderness. No CVA tenderness. EXTREMITIES: No cyanosis. No clubbing. No edema. No calf tenderness. SKIN: Warm and dry. Normal capillary refill. No rashes. No jaundice. NEUROLOGICAL: Alert, awake, appropriate. Cranial nerves 2-12 intact. PSYCHIATRIC: Cooperative. Good eye contact. Appropriate mood and affect. <Amanda Ryder - Last Filed: 04/23/17 20:57> *Review of Systems - Review of Systems Able to Perform ROS?: Yes Comments:: 04/23/17 20:55 CONSTITUTIONAL: Absent: fever, chills, diaphoresis, generalized weakness, malaise, loss of appetite HEENT: Absent: rhinorrhea, nasal congestion, throat pain, throat swelling, difficulty swallowing, mouth swelling, ear pain, eye pain, visual Changes CARDIOVASCULAR: Absent: chest pain, syncope, palpitations, irregular heart rate, lightheadedness , peripheral edema RESPIRATORY: Absent: cough, shortness of breath, dyspnea with exertion, orthopnea, wheezing, stridor, hemoptysis GASTROINTESTINAL: Present: nausea, vomiting, abdominal pain Absent: abdominal distension, diarrhea, constipation, melena, hematochezia GENITOURINARY: Absent: dysuria, frequency, urgency, hesitancy, hematuria, flank pain, genital pain MUSCULOSKELETAL: Absent: myalgia, arthralgia, joint swelling SKIN: Absent: rash, itching, pallor HEMATOLOGIC/IMMUNOLOGIC: Absent: easy bleeding, easy bruising, lymphadenopathy, frequent infections ENDOCRINE: Absent: unexplained weight gain, unexplained weight loss, heat intolerance, cold intolerance NEUROLOGIC: Absent: headache, focal weakness or paresthesias, dizziness, unsteady gait, seizure, mental status changes, bladder or bowel incontinence PSYCHIATRIC: Absent: anxiety, depression, suicidal or homicidal ideation, hallucinations. <Amanda Ryder - Last Filed: 04/23/17 20:57> Attestations - Attestations 04/23/17 20:56 Documentation prepared by Amanda Ryder, acting as director medical for Brendan Freeman MD. <Amanda Ryder - Last Filed: 04/23/17 20:57>
[2017-04-23 20:39] LABS: BASO % 0.7 % (0-2.0); EOS % 3.5 % (0-4.5); HEMATOCRIT 37.6 % (32.4-45.2); HEMOGLOBIN 12.8 GM/dL (10.7-15.3); MCH 32.6 pg (25.7-33.7); MCHC 34.1 g/dl (32.0-36.0); MEAN CELL VOLUME 95.6 fl (80-96); MONO % 7.4 % (3.8-10.2); NEUT % 57.4 % (42.8-82.8); PLATELET COUNT 215 K/MM3 (134-434); RBC 3.93 M/mm3 (3.60-5.2); RDW 13.8 % (11.6-15.6); WHITE BLOOD COUNT 8.6 K/mm3 (4.0-10.0)
[2017-04-23 20:51] LABS: INR 1.03 (0.82-1.09); PROTHROMBIN TIME (PATIENT) 11.6 SEC (9.98-11.88)
[2017-04-23 20:54] LABS: ACTIVATED PTT 29.5 SECONDS (26.9-34.4)
[2017-04-23 21:04] LABS: ALBUMIN 3.6 g/dl (3.4-5.0); ANION GAP 8 (8-16); BLOOD UREA NITROGEN 20 mg/dL (7-18); CALCIUM 8.4 mg/dL (8.5-10.1); CHLORIDE 109 mmol/L (98-107); CO2 24 mmol/L (21-32); GLUCOSE,RANDOM 101 mg/dL (74-106); LIPASE 46 U/L (73-393); POTASSIUM 4.2 mmol/L (3.5-5.1); SGOT/AST 8 U/L (15-37); SGPT/ALT 15 U/L (12-78); SODIUM 141 mmol/L (136-145)
[2017-04-23 21:07] LABS: ALK PHOS 92 U/L (45-117); BILIRUBIN,TOTAL 0.5 mg/dL (0.2-1.0); CREATININE 0.9 mg/dL (0.55-1.02); TOT PROT 5.6 g/dl (6.4-8.2)
[2017-04-24] MEDS ORDERED: DICYCLOMINE HCL 10 MG CAPSULE PO ONE (01:19)
[2017-04-24] MEDS ORDERED: DICYCLOMINE HCL 10 MG CAPSULE ONE (03:14)
--- NOTE | 2017-04-24 10:34 | EKG ---
Test Reason : Blood Pressure : / mmHG Vent. Rate : 070 BPM Atrial Rate : 070 BPM P-R Int : 198 ms QRS Dur : 080 ms QT Int : 418 ms P-R-T Axes : 056 006 074 degrees QTc Int : 451 ms NORMAL SINUS RHYTHM SEPTAL INFARCT , AGE UNDETERMINED NONSPECIFIC ST ABNORMALITY WHEN COMPARED WITH ECG OF 05-JAN-2017 10:44, VENT. RATE HAS INCREASED BY 26 BPM NONSPECIFIC T WAVE ABNORMALITY, WORSE IN LATERAL LEADS Confirmed by HANDY DONOHUE MD ([id number]) on 04/24/2017 10:34:27 AM Referred By: Confirmed By:HANDY DONOHUE MD
== END 2017-04-24 04:23 | disposition home or self-care (01) ==
LOC: JER 15:22
PROC: 3E033GC Introduction of Other Therapeutic Substance into Peripheral Vein, Percutaneous Approach (ICD-10-PCS; principal; 2017-04-23)
DX: A08.4 Viral intestinal infection, unspecified (principal); B97.89 Other viral agents as the cause of diseases classified elsewhere; I10 Essential (primary) hypertension; E78.00 Pure hypercholesterolemia, unspecified; E03.9 Hypothyroidism, unspecified; J44.9 Chronic obstructive pulmonary disease, unspecified; G40.909 Epilepsy, unspecified, not intractable, without status epilepticus; R32 Unspecified urinary incontinence; Z87.19 Personal history of other diseases of the digestive system; Z79.82 Long term (current) use of aspirin
CPT/HCPCS: 36415; 74177-TC; 80053; 83690; 85025; 85610; 85730; 87040; 93005; 93010; 99283-25; J7030

== ENCOUNTER 2017-06-16 07:27 | Inpatient (IN) | payer OTHER ==
--- NOTE | 2017-06-16 08:17 | PDOC ---
History of Present Illness - General Chief Complaint: Pain Stated Complaint: ABD PAIN Time Seen by Provider: 06/16/17 08:03 History Source: Patient Exam Limitations: No Limitations - History of Present Illness Initial Comments: 72 year old woman with pmh of COPD, HTN, anemia, Diverticulitis, GERD, who presents with non-bloody loose diarrhea, N/V, myalgias and subjective malaise beginning yesterday at around 5PM. Pt presents from her half-way center [facility] and was last in her usual state of health this late morning. Pt states she ate cereal for breakfast and in the mid afternoon notes the onset of persistent crampy RLQ pain with no radiation and two episodes of non-bloody diarrhea overnight. In addition, pt endorses diffuse myalgias and a mild SLOAN. Pt with no PO intake after start of diarrhea and endorses one episode of nonbloody , nonbilious vomiting during morning of presentation, before coming into ED. Pt denies any sick contacts, recent travel, med or diet changes. Pt most recently here on 04/23 for similar symptoms, received CT A/P, which was normal and was discharge with dx of viral gastroenteritis. Pt also complaining of accompanying dysuria and subjective chills. Pt states she feels mild GERD-like chest pain after vomiting this AM Denies lightheadness, vision changes, dysphagia, SOB, cough, palpitations, back pain, constipation, melena, hematochezia, rashes, FNDs. 06/16/17 08:34 Social History: No alcohol, tobacco or drug use. Surgical History: No prior surgeries Family hx: No hx of Ca, GI conditions, CVD PCP: None, seen by physicians Allergies Allergy/AdvReac Type Severity Reaction Status Date / Time morphine Allergy Unknown Verified 06/16/17 07:39 Penicillins Allergy Unknown Verified 06/16/17 07:39 chocolate Allergy Unknown Uncoded 06/16/17 07:39 06/16/17 08:48 Past History - Past Medical History Allergies/Adverse Reactions: Allergies Allergy/AdvReac Type Severity Reaction Status Date / Time morphine Allergy Unknown Verified 06/16/17 07:39 Penicillins Allergy Unknown Verified 06/16/17 07:39 chocolate Allergy Unknown Uncoded 06/16/17 07:39 Home Medications: Ambulatory Orders Alendronate Na [Fosamax (Weekly)] 70 mg PO MO 04/19/16 Aripiprazole [Abilify -] 5 mg PO DAILY 04/19/16 Aspirin [ASA -] 81 mg PO DAILY 04/19/16 Atorvastatin Ca [Lipitor] 20 mg PO HS 04/19/16 Carbidopa/Levodopa [Carbidopa-Levodopa 25-250 Tab] 1 each PO TID 04/19/16 Clopidogrel Bisulfate [Plavix -] 75 mg PO DAILY 04/19/16 Gemfibrozil [Lopid] 600 mg PO BID 04/19/16 Levothyroxine [Synthroid -] 25 mcg PO DAILY 04/19/16 Metoprolol Tartrate [Lopressor -] 25 mg PO DAILY 04/19/16 Montelukast Na [Singulair -] 10 mg PO DAILY 04/19/16 Naproxen [Naprosyn -] 1,000 mg PO BID 04/19/16 Solifenacin Succinate [Vesicare -] 10 mg PO DAILY 04/19/16 Budesonide [Pulmicort Flexhaler] 180 mcg PO BID 05/12/16 Acetaminophen [Mapap] 1,000 mg PO BID 09/01/16 Albuterol 0.083% Nebulizer Shavon [Ventolin 0.083% Nebulizer Soln -] 1 amp NEB TID 09/01/16 Fluticasone Prop 0.05% Nasal [Flonase -] 2 spray NS DAILY 09/01/16 Pantoprazole Sodium [Protonix -] 20 mg PO DAILY 09/01/16 Tiotropium [place] [Spiriva] 2 inh PO DAILY 09/01/16 traMADol HCL [Ultram -] 50 mg PO TID 09/01/16 Risperidone [Risperdal -] 2 mg PO BID #60 tablet 09/04/16 levoFLOXacin [Levaquin -] 500 mg PO DAILY@0600 #7 tablet 01/07/17 metroNIDAZOLE [Flagyl -] 500 mg PO TID #21 tablet 01/07/17 Dicyclomine HCl [Bentyl -] 10 mg PO Q8H #9 capsule 04/24/17 Anemia: Yes Asthma: Yes Cancer: No Cardiac Disorders: (hx of chest pain) CVA: No COPD: Yes (PT STATED) CHF: No DVT: No Dementia: No Diabetes: No GI Disorders: Yes (GERD) Disorders: Yes (incontinence) HTN: Yes Hypercholesterolemia: Yes Liver Disease: No Psychiatric Problems: Yes (BiPolar) Seizures: Yes Thyroid Disease: Yes (HYPO.) - Surgical History Abdominal Surgery: No Appendectomy: No Cardiac Surgery: No Cholecystectomy: No Lung Surgery: No Neurologic Surgery: No Orthopedic Surgery: No - Immunization History Td Vaccination: (unknown) Immunization Up to Date: No - Suicide/Smoking/Psychosocial Hx Smoking Status: No Smoking History: Never smoked Years of Tobacco Use: 0 Have you smoked in the past 12 months: No Number of Cigarettes Smoked Daily: 0 Cigars Per Day: 0 Information on smoking cessation initiated: No Hx Alcohol Use: No Drug/Substance Use Hx: No Substance Use Type: None Hx Substance Use Treatment: No Review of Systems - Review of Systems Comments:: GENERAL/CONSTITUTIONAL: +chills. No fevers. No weakness. HEAD, EYES, EARS, NOSE AND THROAT: No change in vision. No ear pain or discharge. No sore throat. CARDIOVASCULAR: No chest pain or shortness of breath RESPIRATORY: No cough, wheezing, or hemoptysis. GASTROINTESTINAL: +nausea, vomiting, diarrhea. No melena, hematochezia, constipation GENITOURINARY: +Mild dysuria. No frequency MUSCULOSKELETAL: Diffuse myalgias and pain in BL knee joints. No neck or back pain. No CVA tenderness. SKIN: No rash NEUROLOGIC: No headache, vertigo, loss of consciousness, or change in strength/ sensation. ENDOCRINE: No increased thirst. No abnormal weight change HEMATOLOGIC/LYMPHATIC: No anemia, easy bleeding, or history of blood clots. ALLERGIC/IMMUNOLOGIC: No hives or skin allergy. 06/16/17 08:50 *Physical Exam - Vital Signs Last Vital Signs Temp Pulse Resp BP Pulse Ox 98.7 F 79 18 148/55 100 06/16/17 07:37 06/16/17 07:37 06/16/17 07:37 06/16/17 07:37 06/16/17 07:37 - Physical Exam Comments: GENERAL: Elderly woman, NAD, A&Ox3 HEAD: No signs of trauma, normocephalic, atraumatic EYES: PERRLA, EOMI, sclera anicteric, conjunctiva clear ENT: Auricles normal inspection, hearing grossly normal, nares patent, oropharynx clear without exudates. Moist mucosa NECK: Normal ROM, supple, no lymphadenopathy, JVD, or masses LUNGS: No distress, speaks full sentences, clear to auscultation bilaterally HEART: Regular rate and rhythm, normal S1 and S2, no murmurs, rubs or gallops, peripheral pulses normal and equal bilaterally. ABDOMEN: TTP in RLQ. Negative guarding, murphys, cullens. Otherwise, soft. Hypoactive bowel sounds. No guarding, no rebound. EXTREMITIES : Normal inspection, Normal range of motion, trace pedal edema. No clubbing or cyanosis. NEUROLOGICAL: Cranial nerves II through XII grossly intact. Normal speech, gait not evaluated, no focal sensorimotor deficits 06/16/17 08:52 ED Treatment Course - LABORATORY CBC & Chemistry Diagram: 06/16/17 09:20 06/16/17 09:20 Medical Decision Making - Medical Decision Making 72 yo woman with 1 day of NB diarrhea, RLQ pain, N/V and myalgias, as well as dysuria. Differential includes viral vs. bacterial gastroenteritis, mesenteric ischemic, diverticulitis, IBD and appendicitis. Plan: CBC, CMP, lipase, trops, EKG, UA, lactate Abdominal CT A/P Flu swab IVFs 06/16/17 08:54 Spoke with pt personal financial representative at [facility]. Pt PMD Dr. Maldonado, who is currently away for the week on vacation. Unknown if he has admitting privileges at [facility]. If admitted, will likely go to hospitalist service. 06/16/17 09:55 *DC/Admit/Observation/Transfer Diagnosis at time of Disposition: Diverticulitis - Discharge Dispostion Decision to Admit order: Yes Decision to Admit order Date/Time: Discussed with [employer] Radha Chisholm from Hospitalist group. Will admit to obs. 06/16/17 14:33 - Referrals Referrals: Jaswinder Maldonado [Primary Care Provider] - - Patient Instructions - Post Discharge Activity
[2017-06-16] MEDS ORDERED: ONDANSETRON 4 MG/2 ML VIAL IVPUSH PRN ×2 (08:29→17:04)
[2017-06-16] MEDS ORDERED: morphine CARPU-JECT 4 MG/1 ML DISP.SYRIN IVPUSH PRN (08:29)
--- NOTE | 2017-06-16 08:34 | PDOC ---
Attending Attestation - Resident Resident Name: ChrisLeonard bird - HPI HPI: 06/16/17 12:57 Pt presents to the ED complaining of two days of nausea and vomiting, along with lower abdominal pain and dysuria. + history of similar pain two months ago with negative work up. Also complaining of generalized myalgias. 06/16/17 14:25 - Physicial Exam PE: 06/16/17 14:25 Agree with resident exam. - Medical Decision Making 06/16/17 14:31 Pt presents to the ED complaining of several days of bilateral lower quadrant pain, nausea and vomiting. Abdomen is mildly tender to deep palpation in the lower quadrants. Labs sent and show evidence of UTI. CT checked to evaluate for diverticulitis or other intraabdominal pathology and shows acute diverticulitis. Patient reports persistent pain inability to tolerate PO, so will admit to medicine for diverticulitis. 06/16/17 14:51
[2017-06-16 09:32] LABS: HEMATOCRIT 39.8 % (32.4-45.2); HEMOGLOBIN 13.8 GM/dL (10.7-15.3); MCH 32.8 pg (25.7-33.7); MCHC 34.6 g/dl (32.0-36.0); MEAN CELL VOLUME 94.8 fl (80-96); MEAN PLT VOLUME 7.7 fl (7.5-11.1); PLATELET COUNT 258 K/MM3 (134-434); RDW 13.6 % (11.6-15.6); WHITE BLOOD COUNT 9.4 K/mm3 (4.0-10.0)
[2017-06-16 09:34] LABS: URINE APPEARANCE SLCLOUDY; URINE BILIRUBIN NEGATIVE (<2.0 mg/dL); URINE COLOR LTYELLOW; URINE GLUCOSE (UA) NEGATIVE (NEGATIVE); URINE KETONE NEGATIVE (NEGATIVE); URINE NITRITE NEGATIVE (NEGATIVE); URINE PROTEIN NEGATIVE (NEGATIVE); URINE UROBILINOGEN NEGATIVE mg/dL (0.2-1.0)
[2017-06-16 09:36] LABS: URINE LEUK ESTERASE 3+ (NEGATIVE)
[2017-06-16] MEDS ORDERED: ONDANSETRON 4 MG/2 ML VIAL ONE (09:40)
[2017-06-16 09:54] LABS: ALBUMIN 3.7 g/dl (3.4-5.0); ANION GAP 7 (8-16); BLOOD UREA NITROGEN 20 mg/dL (7-18); CALCIUM 8.7 mg/dL (8.5-10.1); CHLORIDE 113 mmol/L (98-107); CO2 22 mmol/L (21-32); GLUCOSE,RANDOM 115 mg/dL (74-106); LIPASE 50 U/L (73-393); POTASSIUM 4.2 mmol/L (3.5-5.1); SODIUM 142 mmol/L (136-145)
[2017-06-16 10:00] LABS: ALK PHOS 154 U/L (45-117); BILIRUBIN,TOTAL 0.6 mg/dL (0.2-1.0); CREATININE 0.9 mg/dL (0.55-1.02); SGOT/AST 16 U/L (15-37); SGPT/ALT 48 U/L (12-78); TOT PROT 6.3 g/dl (6.4-8.2)
[2017-06-16 11:42] LABS: PLATELET ESTIMATE NORMAL
[2017-06-16] MEDS ORDERED: morphine CARPU-JECT 2 MG/1 ML DISP.SYRIN IM ONE (13:30)
--- NOTE | 2017-06-16 13:55 | EKG ---
Test Reason : Blood Pressure : / mmHG Vent. Rate : 075 BPM Atrial Rate : 075 BPM P-R Int : 186 ms QRS Dur : 090 ms QT Int : 392 ms P-R-T Axes : 050 012 073 degrees QTc Int : 437 ms NORMAL SINUS RHYTHM ANTEROSEPTAL INFARCT (CITED ON OR BEFORE 23-APR-2017) ABNORMAL ECG NONSPECIFIC T WAVE ABNORMALITY Confirmed by MD Esthela, Jasper ([id number]) on 06/16/2017 1:54:57 PM Referred By: Confirmed By:Jasper Proctor MD
--- NOTE | 2017-06-16 17:00 | HP ---
Admitting History and Physical - Admission Chief Complaint: abd pain, diarrhea History of Present Illness: This is a 72 year old female of [place] with pmhx of COPD, HTN, Anemia , Diverticulitis, GERD, parkinsons, hypothyroid, bipolar disorder, CAD, who presented to the ED with 2 days of RLQ pain, cramping and diarrhea, non bloody, along with vomiting. Per ED record pt c/o dysuria, subjective chills, and myalgia. Pt was here on 04/24/2107 with similar symptoms sent home with dx of viral gastroenteritis. She denies sob, cp, fever, has persistent cramping and had a episode of diarrhea during my evaluation. ED course 1. CTAP shows acute sigmoid diverticulitis c/o absces 2. 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 Cardiovascular: Yes: CAD, HTN, Hyperlipdemia Pulmonary: Yes: Asthma Renal/: Yes: Renal Inusuff Psych: Yes: Anxiety, Depression, Schizophrenia Musculoskeletal: Yes: Other Endocrine: Yes: Hypothyroidism - Past Surgical History Past Surgical History: Yes: None, Hernia Repair - Smoking History Smoking history: Never smoked Have you smoked in the past 12 months: No Aproximately how many cigarettes per day: 0 - Alcohol/Substance Use Hx Alcohol Use: No History of Substance Use: reports: None - Social History Usual Living Arrangement: Yes: Assisted Living, Senior Care ADL: Support Services History of Recent Travel: No Home Medications - Allergies Allergies/Adverse Reactions: Allergies Allergy/AdvReac Type Severity Reaction Status Date / Time morphine Allergy Unknown Verified 06/16/17 07:39 Penicillins Allergy Unknown Verified 06/16/17 07:39 chocolate Allergy Unknown Uncoded 06/16/17 07:39 - Home Medications Home Medications: Ambulatory Orders Alendronate Na [Fosamax (Weekly)] 70 mg PO MO 04/19/16 Aripiprazole [Abilify -] 5 mg PO DAILY 04/19/16 Aspirin [ASA -] 81 mg PO DAILY 04/19/16 Atorvastatin Ca [Lipitor] 20 mg PO HS 04/19/16 Clopidogrel Bisulfate [Plavix -] 75 mg PO DAILY 04/19/16 Levothyroxine [Synthroid -] 25 mcg PO DAILY 04/19/16 Solifenacin Succinate [Vesicare -] 10 mg PO DAILY 04/19/16 Albuterol 0.083% Nebulizer Shavon [Ventolin 0.083% Nebulizer Soln -] 1 amp NEB TID 09/01/16 Fluticasone Prop 0.05% Nasal [Flonase -] 2 spray NS DAILY 09/01/16 Pantoprazole Sodium [Protonix -] 20 mg PO DAILY 09/01/16 Tiotropium Jaffrey [Spiriva] 2 inh PO DAILY 09/01/16 Budesonide [Pulmicort Flexhaler] 180 mcg IH BID 06/16/17 Cyclobenzaprine HCl 5 mg PO TID 06/16/17 Dicyclomine HCl 10 mg PO Q8H 06/16/17 Ferrous Sulfate 325 mg PO DAILY 06/16/17 Multivitamins [Tab-A-Vit -] 1 tab PO DAILY 06/16/17 Naproxen 500 mg PO TID 06/16/17 Risperidone [Risperdal -] 1 mg PO BID 06/16/17 Review of Systems - Review of Systems Constitutional: reports: Weakness Eyes: reports: No Symptoms HENT: reports: No Symptoms Neck: reports: No Symptoms Cardiovascular: reports: No Symptoms Respiratory: reports: No Symptoms Gastrointestinal: reports: Abdominal Pain, Diarrhea, Vomiting Genitourinary: reports: Dysuria Musculoskeletal: reports: No Symptoms Integumentary: reports: No Symptoms Neurological: reports: No Symptoms Endocrine: reports: No Symptoms Hematology/Lymphatic: reports: No Symptoms Psychiatric: reports: No Symptoms Physical Examination Vital Signs: Vital Signs Temperature 97.7 F 06/16/17 16:35 Pulse Rate 85 06/16/17 16:35 Respiratory Rate 16 06/16/17 16:35 Blood Pressure 138/60 06/16/17 16:35 O2 Sat by Pulse Oximetry (%) 96 06/16/17 16:35 Constitutional: Yes: Mild Distress Eyes: Yes: Conjunctiva Clear HENT: Yes: Other (no teeth, left dentchers at home) Neck: Yes: Supple Cardiovascular: Yes: Regular Rate and Rhythm, S1, S2 Respiratory: Yes: Regular, CTA Bilaterally Gastrointestinal: Yes: Normal Bowel Sounds, Soft, Tenderness (RLQ to palpation) Musculoskeletal: Yes: WNL Extremities: Yes: WNL Edema: No Neurological: Yes: Alert, Oriented, Cran Nerves II-XII Intact Labs: CBC, BMP 06/16/17 09:20 06/16/17 09:20 Imaging - Results Cat Scan: Report Reviewed Problem List - Problems (1) Diverticulitis Code(s): K57.92 - DVTRCLI OF INTEST, PART UNSP, W/O PERF OR ABSCESS W/O BLEED (2) Abdominal pain Code(s): R10.9 - UNSPECIFIED ABDOMINAL PAIN Qualifiers: Abdominal location: unspecified location Qualified Code(s): R10.9 - Unspecified abdominal pain (3) Dehydration Code(s): E86.0 - DEHYDRATION (4) Diarrhea Code(s): R19.7 - DIARRHEA, UNSPECIFIED Qualifiers: Diarrhea type: unspecified type Qualified Code(s): R19.7 - Diarrhea, unspecified (5) Urinary tract infection Code(s): N39.0 - URINARY TRACT INFECTION, SITE NOT SPECIFIED Qualifiers: Urinary tract infection type: acute cystitis Hematuria presence: without hematuria Qualified Code(s): N30.00 - Acute cystitis without hematuria (6) Weakness Code(s): R53.1 - WEAKNESS (7) COPD (chronic obstructive pulmonary disease) Code(s): J44.9 - CHRONIC OBSTRUCTIVE PULMONARY DISEASE, UNSPECIFIED Qualifiers: Emphysema type: unspecified Assessment/Plan Assessment: 72 year old female admitted with acute diverticulitis and UTI Plan: 1. Acute diverticulitis - Start flagly, levaquin - Send stool studies - Gentle hydration - GI consulted, pt had colonoscopy once does not remember by who or results, no edg - Previously seen by GI here, no procedures done at that time, pt was referred out, however never followed up 2. Diarrhea - Send stool studies 3. UTI - Start levaquin - Follow urine cx 4. Bipolar - Resume home meds - QTC wnl 5. CAD - Hold plavix and ASA d/t increased risk of bleeding from inflammation and psych meds 6. Hypothyroid - Synthroid 25mcg daily 7. HLD - Lipitor hs 8. COPD - Not in exacerbation - Continue nebs tid 9. DVT - Lovenox sq Visit type - Emergency Visit Emergency Visit: Yes ED Registration Date: 06/16/17 Care time: The patient presented to the Emergency Department on the above date and was hospitalized for further evaluation of their emergent condition. - New Patient This patient is new to me today: Yes Date on this admission: 06/16/17 - Critical Care Critical Care patient: No Hospitalist Screening - Colonoscopy Questionnaire Colonoscopy Questionnaire: Colonoscopy Questionnaire - Patient: 50 - 75 years old and never had a screening colonoscopy: Yes History of colon or rectal polyps, or CA: Unknown History of IBD, Crohn's disease or UC: Unknown History of abdominal radiation therapy as a child: Unknown - Relative: 1 with colon or rectal CA, or polyps at age 60 or younger: Unknown Colon or rectal CA diagnosed at age 45 or younger: Unknown Multiple relatives with colon or rectal CA: Unknown - Outcome: Screening Result: Positive Screen
--- NOTE | 2017-06-16 17:20 | CON.GI ---
Consult Consult Specialty:: GI Reason for Consultation:: diverticulitis - History of Present Illness History of Present Illness: chart reviewed. Events noted. Prior to admissions reviewed. As per initial intake: this is a 72 year old female of [place] with pmhx of COPD, HTN , Anemia, Diverticulitis, GERD, parkinsons, hypothyroid, bipolar disorder, CAD, who presented to the ED with 2 days of RLQ pain, cramping and diarrhea, non bloody, along with vomiting. Per ED record pt c/o dysuria, subjective chills, and myalgia. Pt was here on 04/24/2107 with similar symptoms sent home with dx of viral gastroenteritis. She denies sob, cp, fever, has persistent cramping and had a episode of diarrhea during my evaluation. ED course 1. CTAP shows acute sigmoid diverticulitis w/o absces 2. UA : +3 le, 25 wbc At the time of this and contacted the patient appears comfortable, not in distress, or pain. Reports no bowel movement since admission. Denies nausea, vomiting. Had similar presentation in December 2016, was diagnosed with diverticulitis, treated and released with follow-up as an outpatient for colonoscopy, which did not happen. in the interim there was no melena, hematochezia, hematemesis, unintentional weight loss, low-grade fever, chills, jaundice. 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 Cardio/Vascular: Yes: CAD, HTN, Hyperlipdemia Pulmonary: Yes: Asthma Renal/: Yes: Renal Inusuff Psych: Yes: Anxiety, Depression, Schizophrenia Musculoskeletal: Yes: Other Endocrine: Yes: Hypothyroidism - Past Surgical History Past Surgical History: Yes: None, Hernia Repair - Alcohol/Substance Use Hx Alcohol Use: No History of Substance Use: reports: None - Smoking History Smoking history: Never smoked Have you smoked in the past 12 months: No Aproximately how many cigarettes per day: 0 - Social History Usual Living Arrangement: Care Home ADL: Support Services History of Recent Travel: No Home Medications - Allergies Allergies/Adverse Reactions: Allergies Allergy/AdvReac Type Severity Reaction Status Date / Time morphine Allergy Unknown Verified 06/16/17 07:39 Penicillins Allergy Unknown Verified 06/16/17 07:39 chocolate Allergy Unknown Uncoded 06/16/17 07:39 - Home Medications Home Medications: Ambulatory Orders Alendronate Na [Fosamax (Weekly)] 70 mg PO MO 04/19/16 Aripiprazole [Abilify -] 5 mg PO DAILY 04/19/16 Aspirin [ASA -] 81 mg PO DAILY 04/19/16 Atorvastatin Ca [Lipitor] 20 mg PO HS 04/19/16 Clopidogrel Bisulfate [Plavix -] 75 mg PO DAILY 04/19/16 Levothyroxine [Synthroid -] 25 mcg PO DAILY 04/19/16 Solifenacin Succinate [Vesicare -] 10 mg PO DAILY 04/19/16 Albuterol 0.083% Nebulizer Shavon [Ventolin 0.083% Nebulizer Soln -] 1 amp NEB TID 09/01/16 Fluticasone Prop 0.05% Nasal [Flonase -] 2 spray NS DAILY 09/01/16 Pantoprazole Sodium [Protonix -] 20 mg PO DAILY 09/01/16 Tiotropium Beatrice [Spiriva] 2 inh PO DAILY 09/01/16 Budesonide [Pulmicort Flexhaler] 180 mcg IH BID 06/16/17 Cyclobenzaprine HCl 5 mg PO TID 06/16/17 Dicyclomine HCl 10 mg PO Q8H 06/16/17 Ferrous Sulfate 325 mg PO DAILY 06/16/17 Multivitamins [Tab-A-Vit -] 1 tab PO DAILY 06/16/17 Naproxen 500 mg PO TID 06/16/17 Risperidone [Risperdal -] 1 mg PO BID 06/16/17 Family Disease History - Family Disease History Family History: Unremarkable (Noncontributory) Review of Systems Findings/Remarks: as per H&P and the HPI Physical Exam-GI Vital Signs: Vital Signs Temperature 97.7 F 06/16/17 16:35 Pulse Rate 85 06/16/17 16:35 Respiratory Rate 16 06/16/17 16:35 Blood Pressure 138/60 06/16/17 16:35 O2 Sat by Pulse Oximetry (%) 96 06/16/17 16:35 Constitutional: Yes: Well Nourished, No Distress, Calm Eyes: Yes: Conjunctiva Clear HENT: Yes: Atraumatic Neck: Yes: Supple Cardiovascular: Yes: Regular Rate and Rhythm Respiratory: Yes: Regular Gastrointestinal Inspection: No: Ascites, Distention ...Auscultate: Yes: Normoactive Bowel Sounds ...Palpate: Yes: Soft, Tenderness ( generalized lower abdominal tenderness). No : Firm/Rigid, Guarding, Tenderness, Rebound Neurological: Yes: Alert, Oriented Labs: CBC, BMP 06/16/17 09:20 06/16/17 09:20 Laboratory Last Values WBC 8.3 K/mm3 (4.0-10.0) 06/17/17 07:00 RBC 3.88 M/mm3 (3.60-5.2) 06/17/17 07:00 Hgb 12.6 GM/dL (10.7-15.3) 06/17/17 07:00 Hct 36.8 % (32.4-45.2) 06/17/17 07:00 MCV 94.7 fl (80-96) 06/17/17 07:00 MCH 32.6 pg (25.7-33.7) 06/17/17 07:00 MCHC 34.4 g/dl (32.0-36.0) 06/17/17 07:00 RDW 13.7 % (11.6-15.6) 06/17/17 07:00 Plt Count 246 K/MM3 (134-434) 06/17/17 07:00 MPV 7.7 fl (7.5-11.1) 06/17/17 07:00 Neutrophils % 74.2 % (42.8-82.8) D 06/17/17 07:00 Neutrophils % (Manual) 70.0 % (42.8-82.8) 06/16/17 09:20 Band Neutrophils % 0.0 % 06/16/17 09:20 Lymphocytes % 15.3 % (8-40) D 06/17/17 07:00 Lymphocytes % (Manual) 23.0 % (8-40) D 06/16/17 09:20 Monocytes % 8.0 % (3.8-10.2) 06/17/17 07:00 Monocytes % (Manual) 5 % (3.8-10.2) 06/16/17 09:20 Eosinophils % 2.1 % (0-4.5) 06/17/17 07:00 Eosinophils % (Manual) 1.0 % (0-4.5) 06/16/17 09:20 Basophils % 0.4 % (0-2.0) 06/17/17 07:00 Basophils % (Manual) 1.0 % (0-2.0) 06/16/17 09:20 Myelocytes % (Man) 0 % (0-2) 06/16/17 09:20 Promyelocytes % (Man) 0 % (0-2) 06/16/17 09:20 Blast Cells % (Manual) 0 % (0-0) 06/16/17 09:20 Nucleated RBC % 0 % (0-0) 06/16/17 09:20 Metamyelocytes 0 % (0-2) D 06/16/17 09:20 Platelet Estimate Normal 06/16/17 09:20 Sodium 142 mmol/L (136-145) 06/16/17 09:20 Potassium 4.2 mmol/L (3.5-5.1) 06/16/17 09:20 Chloride 113 mmol/L (98-107) H 06/16/17 09:20 Carbon Dioxide 22 mmol/L (21-32) 06/16/17 09:20 Anion Gap 7 (8-16) L 06/16/17 09:20 BUN 20 mg/dL (7-18) H 06/16/17 09:20 Creatinine 0.9 mg/dL (0.55-1.02) 06/16/17 09:20 Creat Clearance w eGFR > 60 (>60) 06/16/17 09:20 Random Glucose 115 mg/dL (74-106) H 06/16/17 09:20 Lactic Acid 1.3 mmol/L (0.0-2.0) 06/16/17 09:20 Calcium 8.7 mg/dL (8.5-10.1) 06/16/17 09:20 Total Bilirubin 0.6 mg/dL (0.2-1.0) 06/16/17 09:20 AST 16 U/L (15-37) 06/16/17 09:20 ALT 48 U/L (12-78) 06/16/17 09:20 Alkaline Phosphatase 154 U/L (45-117) H 06/16/17 09:20 Creatine Kinase 154 IU/L (26-192) 06/16/17 09:20 Creatine Kinase Index 2.6 % (0.0-5.0) 06/16/17 09:20 CK-MB (CK-2) 4.115 ng/mL (0.5-3.6) H 06/16/17 09:20 Troponin I < 0.02 ng/ml (0.00-0.05) 06/16/17 09:20 Total Protein 6.3 g/dl (6.4-8.2) L 06/16/17 09:20 Albumin 3.7 g/dl (3.4-5.0) 06/16/17 09:20 Lipase 50 U/L (73-393) L 06/16/17 09:20 Urine Color Ltyellow 06/16/17 08:30 Urine Appearance Slcloudy 06/16/17 08:30 Urine pH 5.0 (5.0-8.0) 06/16/17 08:30 Ur Specific [place] 1.011 (1.001-1.035) 06/16/17 08:30 Urine Protein Negative (NEGATIVE) 06/16/17 08:30 Urine Glucose (UA) Negative (NEGATIVE) 06/16/17 08:30 Urine Ketones Negative (NEGATIVE) 06/16/17 08:30 Urine Blood Negative (NEGATIVE) 06/16/17 08:30 Urine Nitrite Negative (NEGATIVE) 06/16/17 08:30 Urine Bilirubin Negative (<2.0 mg/dL) 06/16/17 08:30 Urine Urobilinogen Negative mg/dL (0.2-1.0) 06/16/17 08:30 Ur Leukocyte Esterase 3+ (NEGATIVE) H 06/16/17 08:30 Urine WBC (Auto) 25 /hpf (3-5) 06/16/17 08:30 Urine RBC (Auto) 1 /hpf (0-3) 06/16/17 08:30 Problem List - Problems (1) Acute diverticulitis Code(s): K57.92 - DVTRCLI OF INTEST, PART UNSP, W/O PERF OR ABSCESS W/O BLEED (2) Diverticulitis Code(s): K57.92 - DVTRCLI OF INTEST, PART UNSP, W/O PERF OR ABSCESS W/O BLEED Assessment/Plan a 72-year-old female with appears to be acute diverticulitis, uncomplicated. Possibly UTI. Agree with current management. Consider liquid diet and observe. Colonoscopy in 6-8 weeks discussed with the patient.
[2017-06-16] MEDS ORDERED: DICYCLOMINE HCL 10 MG CAPSULE ONE (17:58)
[2017-06-16] MEDS ORDERED: morphine SULFATE 4 MG/ML VIAL ONE (17:58)
[2017-06-16] MEDS: SODIUM CHLORIDE 1,000 ML IV SCH (18:00)
[2017-06-16] MEDS: DICYCLOMINE HCL 10 MG CAPSULE PO SCH ×2 (18:00→21:52)
[2017-06-16 21:14] VITALS: BMI 33.7
[2017-06-16] MEDS: morphine SULFATE 4 MG/ML VIAL IVPUSH PRN (21:23)
[2017-06-16] MEDS: ATORVASTATIN CA 20 MG TABLET (FP) PO SCH (21:24)
[2017-06-16] MEDS: risperiDONE 1 MG TABLET (FP) PO SCH (21:24)
[2017-06-16] MEDS: ALBUTEROL SO4 0.083% IH SOL 2.5 MG/3 ML VIAL.NEB. NEB SCH (21:31)
[2017-06-16] MEDS: CYCLOBENZAPRINE HCL 10 MG TABLET (FP) PO SCH (21:51)
[2017-06-17] MEDS: LEVOTHYROXINE NA 25 MCG TABLET (FP) PO SCH (06:59)
[2017-06-17] MEDS: CYCLOBENZAPRINE HCL 10 MG TABLET (FP) PO SCH ×3 (06:59→21:39)
[2017-06-17] MEDS: DICYCLOMINE HCL 10 MG CAPSULE PO SCH ×3 (07:00→21:38)
[2017-06-17] MEDS: morphine SULFATE 4 MG/ML VIAL IVPUSH PRN (07:00)
[2017-06-17] MEDS: ALBUTEROL SO4 0.083% IH SOL 2.5 MG/3 ML VIAL.NEB. NEB SCH ×3 (07:25→20:23)
[2017-06-17] MEDS: SODIUM CHLORIDE 1,000 ML IV SCH ×2 (08:00→17:21)
--- NOTE | 2017-06-17 08:58 | PN ---
Physical Exam: SUBJECTIVE: Patient seen and examined. She states she doesn't feel good, continues to have abdominal pain, denies fever, or chills. Event: - Straight cath 600ml this AM OBJECTIVE: Vital Signs Period Temp Pulse Resp BP Sys/Lin Pulse Ox Last 24 Hr 97.7 F-99 F 76-85 16-18 132-162/50-73 96-96 PE Neuro: alert, awake, cn 2-12intact Pulm: CTAB CV: s1 s2 rrr no mrg Abd: RLQ tenderness to palpation, soft, no distended Ext: no le edema, warm CBCD WBC 8.3 K/mm3 (4.0-10.0) 06/17/17 07:00 RBC 3.88 M/mm3 (3.60-5.2) 06/17/17 07:00 Hgb 12.6 GM/dL (10.7-15.3) 06/17/17 07:00 Hct 36.8 % (32.4-45.2) 06/17/17 07:00 MCV 94.7 fl (80-96) 06/17/17 07:00 MCHC 34.4 g/dl (32.0-36.0) 06/17/17 07:00 RDW 13.7 % (11.6-15.6) 06/17/17 07:00 Plt Count 246 K/MM3 (134-434) 06/17/17 07:00 MPV 7.7 fl (7.5-11.1) 06/17/17 07:00 CMP Sodium 140 mmol/L (136-145) 06/17/17 07:00 Potassium 3.9 mmol/L (3.5-5.1) 06/17/17 07:00 Chloride 109 mmol/L (98-107) H 06/17/17 07:00 Carbon Dioxide 23 mmol/L (21-32) 06/17/17 07:00 Anion Gap 8 (8-16) 06/17/17 07:00 BUN 17 mg/dL (7-18) 06/17/17 07:00 Creatinine 1.0 mg/dL (0.55-1.02) 06/17/17 07:00 Creat Clearance w eGFR 54.66 (>60) 06/17/17 07:00 Random Glucose 120 mg/dL (74-106) H 06/17/17 07:00 Calcium 7.9 mg/dL (8.5-10.1) L 06/17/17 07:00 Total Bilirubin 0.6 mg/dL (0.2-1.0) 06/17/17 07:00 AST 11 U/L (15-37) L 06/17/17 07:00 ALT 33 U/L (12-78) 06/17/17 07:00 Alkaline Phosphatase 135 U/L (45-117) H 06/17/17 07:00 Total Protein 5.6 g/dl (6.4-8.2) L 06/17/17 07:00 Albumin 3.1 g/dl (3.4-5.0) L 06/17/17 07:00 06/17/17 07:00 Phosphorus 2.4 L Magnesium 2.0 06/16/17 09:20 Lactic Acid 1.3 Active Medications Generic Name Dose Route Start Last Admin Trade Name Freq PRN Reason Stop Dose Admin Albuterol Sulfate 1 amp 06/16/17 20:00 06/17/17 07:25 Ventolin 0.083% Nebulizer Soln - NEB 1 amp RTID NITESH Administration Aripiprazole 5 mg 06/17/17 10:00 Abilify PO DAILY NITESH Atorvastatin Calcium 20 mg 06/16/17 22:00 06/16/17 21:24 Lipitor - PO 20 mg HS NITESH Administration Cyclobenzaprine HCl 5 mg 06/16/17 22:00 06/17/17 06:59 Flexeril - PO 5 mg TID NITESH Administration Dicyclomine HCl 10 mg 06/16/17 17:30 06/17/17 07:00 Bentyl - PO 10 mg TID NITESH Administration Enoxaparin Sodium 40 mg 06/17/17 10:00 Lovenox - SQ DAILY NITESH Metronidazole 500 mg in 100 mls @ 100 mls/hr 06/16/17 18:00 06/17/17 01:38 Flagyl 500mg Premixed Ivpb - IVPB 100 mls/hr Q8H-IV NITESH Administration Levofloxacin 500 mg in 100 mls @ 100 mls/hr 06/17/17 10:00 Levaquin 500 Mg Premixed Ivpb - IVPB DAILY [facility] Protocol Sodium Chloride 1,000 mls @ 75 mls/hr 06/16/17 17:15 06/16/17 18:00 Normal Saline - IV 75 mls/hr ASDIR NITESH Administration Levothyroxine Sodium 25 mcg 06/17/17 07:00 06/17/17 06:59 Synthroid - PO 25 mcg 0700 NITESH Administration Morphine Sulfate 2 mg 06/16/17 17:03 06/17/17 07:00 Morphine Sulfate IVPUSH 2 mg Q4H PRN Administration PAIN LEVEL 1-5 Ondansetron HCl 4 mg 06/16/17 17:04 Zofran Injection IVPUSH Q6H PRN NAUSEA AND/OR VOMITING Risperidone 1 mg 06/16/17 22:00 06/16/17 21:24 Risperdal - PO 1 mg BID NITESH Administration Assessment: 72 year old female admitted with acute diverticulitis and UTI Plan: 1. Acute diverticulitis - Continued flagly, levaquin (day2) - Send stool studies, cdiff, ova parasite - Gentle hydration - Per GI medical management - Trial clear liquids 2. Diarrhea - Stool studies ordered 3. UTI - Started levaquin (day2) - Urine cx pending 4. Bipolar - Resume home meds 5. CAD - Hold plavix and ASA d/t increased risk of bleeding from inflammation and psych meds 6. Hypothyroid - Synthroid 25mcg daily 7. HLD - Lipitor hs 8. COPD - Not in exacerbation - Continue nebs tid 9. DVT - Lovenox sq 10. ? urinary retention - D/w RN, monitor output during the day, if retaining will need bladder US and frey insertion 11. Hypophosphatemia - replete k phos x2 pkts Problem List - Problems (1) Diverticulitis Code(s): K57.92 - DVTRCLI OF INTEST, PART UNSP, W/O PERF OR ABSCESS W/O BLEED (2) Abdominal pain Code(s): R10.9 - UNSPECIFIED ABDOMINAL PAIN Qualifiers: Abdominal location: unspecified location Qualified Code(s): R10.9 - Unspecified abdominal pain (3) Dehydration Code(s): E86.0 - DEHYDRATION (4) Diarrhea Code(s): R19.7 - DIARRHEA, UNSPECIFIED Qualifiers: Diarrhea type: unspecified type Qualified Code(s): R19.7 - Diarrhea, unspecified (5) Urinary tract infection Code(s): N39.0 - URINARY TRACT INFECTION, SITE NOT SPECIFIED Qualifiers: Urinary tract infection type: acute cystitis Hematuria presence: without hematuria Qualified Code(s): N30.00 - Acute cystitis without hematuria (6) Weakness Code(s): R53.1 - WEAKNESS (7) COPD (chronic obstructive pulmonary disease) Code(s): J44.9 - CHRONIC OBSTRUCTIVE PULMONARY DISEASE, UNSPECIFIED Qualifiers: Emphysema type: unspecified Visit type - Emergency Visit Emergency Visit: Yes ED Registration Date: 06/17/17 Care time: The patient presented to the Emergency Department on the above date and was hospitalized for further evaluation of their emergent condition. - New Patient This patient is new to me today: No - Critical Care Critical Care patient: No
[2017-06-17 09:16] LABS: BASO % 0.4 % (0-2.0); EOS % 2.1 % (0-4.5); HEMATOCRIT 36.8 % (32.4-45.2); HEMOGLOBIN 12.6 GM/dL (10.7-15.3); LYMPH % 15.3 % (8-40); MCH 32.6 pg (25.7-33.7); MCHC 34.4 g/dl (32.0-36.0); MEAN CELL VOLUME 94.7 fl (80-96); MEAN PLT VOLUME 7.7 fl (7.5-11.1); NEUT % 74.2 % (42.8-82.8); PLATELET COUNT 246 K/MM3 (134-434); RBC 3.88 M/mm3 (3.60-5.2); RDW 13.7 % (11.6-15.6); WHITE BLOOD COUNT 8.3 K/mm3 (4.0-10.0)
[2017-06-17] MEDS ORDERED: PT OWN MED DRAWER 7, Y5N ONE ×2 (09:34→15:04)
[2017-06-17 10:00] LABS: CHLORIDE 109 mmol/L (98-107); POTASSIUM 3.9 mmol/L (3.5-5.1); SODIUM 140 mmol/L (136-145)
[2017-06-17] MEDS ORDERED: CLOPIDOGREL BISULFATE 75 MG TABLET (FP) PO SCH (10:00)
[2017-06-17] MEDS ORDERED: ASPIRIN 81 MG CHEWABLE TABLETS PO SCH (10:00)
[2017-06-17 10:09] LABS: ALBUMIN 3.1 g/dl (3.4-5.0); ALK PHOS 135 U/L (45-117); ANION GAP 8 (8-16); BILIRUBIN,TOTAL 0.6 mg/dL (0.2-1.0); BLOOD UREA NITROGEN 17 mg/dL (7-18); CALCIUM 7.9 mg/dL (8.5-10.1); CO2 23 mmol/L (21-32); GLUCOSE,RANDOM 120 mg/dL (74-106); PHOSPHOROUS 2.4 mg/dL (2.5-4.9); SGOT/AST 11 U/L (15-37); SGPT/ALT 33 U/L (12-78); TOT PROT 5.6 g/dl (6.4-8.2)
[2017-06-17] MEDS: risperiDONE 1 MG TABLET (FP) PO SCH ×2 (10:13→21:38)
[2017-06-17] MEDS: ENOXAPARIN NA (PORCINE) 40 MG/0.4 ML DISP.SYRIN SQ SCH (10:13)
[2017-06-17] MEDS ORDERED: NAPH,MB-DB/K PH,MBDB POWDER PACKET PO ONE (10:54)
[2017-06-17] MEDS: ARIPiprazole 5 MG TABLET (FP) PO SCH (12:52)
[2017-06-17] MEDS: ATORVASTATIN CA 20 MG TABLET (FP) PO SCH (21:38)
[2017-06-18] MEDS: CYCLOBENZAPRINE HCL 10 MG TABLET (FP) PO SCH ×3 (06:07→21:37)
[2017-06-18] MEDS: LEVOTHYROXINE NA 25 MCG TABLET (FP) PO SCH (06:07)
[2017-06-18] MEDS: DICYCLOMINE HCL 10 MG CAPSULE PO SCH ×3 (06:08→21:38)
[2017-06-18] MEDS: ALBUTEROL SO4 0.083% IH SOL 2.5 MG/3 ML VIAL.NEB. NEB SCH ×3 (07:20→20:12)
--- NOTE | 2017-06-18 09:15 | PN ---
Physical Exam: SUBJECTIVE: Patient seen and examined. Appears much improved, tolerating clear diet, up and oob. Still has some cramping. Diarrhea stopped OBJECTIVE: Vital Signs Period Temp Pulse Resp BP Sys/Lin Pulse Ox Last 24 Hr 98.3 F-99.9 F 75-87 18-20 125-155/51-65 PE Neuro: alert, awake, cn 2-12intact HEENT: intermittent lip smacking Pulm: CTAB CV: s1 s2 rrr no mrg Abd: RLQ mild tenderness - improved Ext: no le edema, warm Laboratory Results - last 24 hr 06/17/17 06/17/17 07:00 07:00 WBC 8.3 RBC 3.88 Hgb 12.6 Hct 36.8 MCV 94.7 MCH 32.6 MCHC 34.4 RDW 13.7 Plt Count 246 MPV 7.7 Neutrophils % 74.2 D Lymphocytes % 15.3 D Monocytes % 8.0 Eosinophils % 2.1 Basophils % 0.4 Sodium 140 Potassium 3.9 Chloride 109 H Carbon Dioxide 23 Anion Gap 8 BUN 17 Creatinine 1.0 Creat Clearance w eGFR 54.66 Random Glucose 120 H Calcium 7.9 L Phosphorus 2.4 L Magnesium 2.0 Total Bilirubin 0.6 AST 11 L ALT 33 Alkaline Phosphatase 135 H Total Protein 5.6 L Albumin 3.1 L Active Medications Generic Name Dose Route Start Last Admin Trade Name Freq PRN Reason Stop Dose Admin Albuterol Sulfate 1 amp 06/16/17 20:00 06/18/17 07:20 Ventolin 0.083% Nebulizer Soln - NEB 1 amp RTID NITESH Administration Aripiprazole 5 mg 06/17/17 10:00 06/17/17 12:52 Abilify PO 5 mg DAILY NITESH Administration Atorvastatin Calcium 20 mg 06/16/17 22:00 06/17/17 21:38 Lipitor - PO 20 mg HS NITESH Administration Cyclobenzaprine HCl 5 mg 06/16/17 22:00 06/18/17 06:07 Flexeril - PO 5 mg TID NITESH Administration Dicyclomine HCl 10 mg 06/16/17 17:30 06/18/17 06:08 Bentyl - PO 10 mg TID NITESH Administration Enoxaparin Sodium 40 mg 06/17/17 10:00 06/17/17 10:13 Lovenox - SQ 40 mg DAILY NITESH Administration Metronidazole 500 mg in 100 mls @ 100 mls/hr 06/16/17 18:00 06/18/17 01:36 Flagyl 500mg Premixed Ivpb - IVPB 100 mls/hr Q8H-IV NITESH Administration Levofloxacin 500 mg in 100 mls @ 100 mls/hr 06/17/17 10:00 06/17/17 10:13 Levaquin 500 Mg Premixed Ivpb - IVPB 100 mls/hr DAILY NITESH Administration Protocol Sodium Chloride 1,000 mls @ 75 mls/hr 06/16/17 17:15 06/17/17 17:21 Normal Saline - IV Not Given ASDIR NITESH Levothyroxine Sodium 25 mcg 06/17/17 07:00 06/18/17 06:07 Synthroid - PO 25 mcg 0700 NITESH Administration Morphine Sulfate 2 mg 06/16/17 17:03 06/17/17 07:00 Morphine Sulfate IVPUSH 2 mg Q4H PRN Administration PAIN LEVEL 1-5 Ondansetron HCl 4 mg 06/16/17 17:04 Zofran Injection IVPUSH Q6H PRN NAUSEA AND/OR VOMITING Risperidone 1 mg 06/16/17 22:00 06/17/17 21:38 Risperdal - PO 1 mg BID NITESH Administration Microbiology 06/16/17 12:57 Nasopharyngeal Swab Influenza Types A,B Antigen (TREVOR) - Final 06/16/17 12:57 Nasopharyngeal Swab - Final Assessment: 72 year old female admitted with acute diverticulitis and UTI Plan: 1. Acute diverticulitis - Continued flagly, levaquin (day 3) - Advance to soft diet 2. Diarrhea - Stool studies ordered 3. UTI - Continue Levaquin (day 3) - Urine cx pending 4. Bipolar - Resume home meds 5. CAD - Hold plavix and ASA d/t increased risk of bleeding from inflammation and psych meds - If continues to improve can restart tomorrow 6. Hypothyroid - Synthroid 25mcg daily 7. HLD - Lipitor hs 8. COPD - Not in exacerbation - Continue nebs tid 9. DVT - Lovenox sq 10. ? urinary retention - Resolved, pt is urinating spontaneously 11. Hypophosphatemia - AM level pending following repletion Problem List - Problems (1) Diverticulitis Code(s): K57.92 - DVTRCLI OF INTEST, PART UNSP, W/O PERF OR ABSCESS W/O BLEED (2) Abdominal pain Code(s): R10.9 - UNSPECIFIED ABDOMINAL PAIN Qualifiers: Abdominal location: unspecified location Qualified Code(s): R10.9 - Unspecified abdominal pain (3) Dehydration Code(s): E86.0 - DEHYDRATION (4) Diarrhea Code(s): R19.7 - DIARRHEA, UNSPECIFIED Qualifiers: Diarrhea type: unspecified type Qualified Code(s): R19.7 - Diarrhea, unspecified (5) Urinary tract infection Code(s): N39.0 - URINARY TRACT INFECTION, SITE NOT SPECIFIED Qualifiers: Urinary tract infection type: acute cystitis Hematuria presence: without hematuria Qualified Code(s): N30.00 - Acute cystitis without hematuria (6) Weakness Code(s): R53.1 - WEAKNESS (7) COPD (chronic obstructive pulmonary disease) Code(s): J44.9 - CHRONIC OBSTRUCTIVE PULMONARY DISEASE, UNSPECIFIED Qualifiers: Emphysema type: unspecified Visit type - Emergency Visit Emergency Visit: Yes ED Registration Date: 06/17/17 Care time: The patient presented to the Emergency Department on the above date and was hospitalized for further evaluation of their emergent condition. - New Patient This patient is new to me today: No - Critical Care Critical Care patient: No
[2017-06-18 09:37] LABS: ANION GAP 10 (8-16); BLOOD UREA NITROGEN 10 mg/dL (7-18); CHLORIDE 113 mmol/L (98-107); CO2 22 mmol/L (21-32); CREATININE 0.9 mg/dL (0.55-1.02); GLUCOSE,RANDOM 133 mg/dL (74-106); POTASSIUM 3.8 mmol/L (3.5-5.1); SGPT/ALT 27 U/L (12-78); SODIUM 145 mmol/L (136-145)
[2017-06-18 09:42] LABS: ALK PHOS 120 U/L (45-117); BILIRUBIN,TOTAL 0.5 mg/dL (0.2-1.0); SGOT/AST 10 U/L (15-37); TOT PROT 5.5 g/dl (6.4-8.2)
[2017-06-18] MEDS ORDERED: PT OWN MED DRAWER 7, Y5N ONE ×3 (09:55→13:30)
[2017-06-18] MEDS: ENOXAPARIN NA (PORCINE) 40 MG/0.4 ML DISP.SYRIN SQ SCH (09:58)
[2017-06-18] MEDS: risperiDONE 1 MG TABLET (FP) PO SCH ×2 (09:58→21:38)
[2017-06-18] MEDS: ARIPiprazole 5 MG TABLET (FP) PO SCH (09:59)
[2017-06-18 11:26] LABS: PHOSPHOROUS 2.3 mg/dL (2.5-4.9)
[2017-06-18] MEDS ORDERED: NAPH,MB-DB/K PH,MBDB POWDER PACKET PO ONE ×2 (13:46→16:45)
--- NOTE | 2017-06-18 16:22 | PN ---
Progress Note, Physician History of Present Illness: Reports lower abdominal pain and no bowel movement since admission. Does not appear toxic, or in distress - Current Medication List Current Medications: Active Medications Albuterol Sulfate (Ventolin 0.083% Nebulizer Soln -) 1 amp NEB RTID [facility] Last Admin: 06/18/17 13:54 Dose: 1 amp Aripiprazole (Abilify) 5 mg PO DAILY [facility] Last Admin: 06/18/17 09:59 Dose: 5 mg Atorvastatin Calcium (Lipitor -) 20 mg PO HS [facility] Last Admin: 06/17/17 21:38 Dose: 20 mg Cyclobenzaprine HCl (Flexeril -) 5 mg PO TID [facility] Last Admin: 06/18/17 13:39 Dose: 5 mg Dicyclomine HCl (Bentyl -) 10 mg PO TID [facility] Last Admin: 06/18/17 13:39 Dose: 10 mg Enoxaparin Sodium (Lovenox -) 40 mg SQ DAILY [facility] Last Admin: 06/18/17 09:58 Dose: 40 mg Metronidazole (Flagyl 500mg Premixed Ivpb -) 500 mg in 100 mls @ 100 mls/hr IVPB Q8H-IV [facility] Last Admin: 06/18/17 09:58 Dose: 100 mls/hr Levofloxacin (Levaquin 500 Mg Premixed Ivpb -) 500 mg in 100 mls @ 100 mls/hr IVPB DAILY [facility] PRN Reason: Protocol Last Admin: 06/18/17 09:58 Dose: 100 mls/hr Sodium Chloride (Normal Saline -) 1,000 mls @ 75 mls/hr IV ASDIR [facility] Last Admin: 06/17/17 17:21 Dose: Not Given Levothyroxine Sodium (Synthroid -) 25 mcg PO 0700 [facility] Last Admin: 06/18/17 06:07 Dose: 25 mcg Morphine Sulfate (Morphine Sulfate) 2 mg IVPUSH Q4H PRN PRN Reason: PAIN LEVEL 1-5 Last Admin: 06/17/17 07:00 Dose: 2 mg Ondansetron HCl (Zofran Injection) 4 mg IVPUSH Q6H PRN PRN Reason: NAUSEA AND/OR VOMITING Risperidone (Risperdal -) 1 mg PO BID [facility] Last Admin: 06/18/17 09:58 Dose: 1 mg - Objective Vital Signs: Vital Signs Temperature 98.2 F 06/18/17 14:43 Pulse Rate 80 06/18/17 14:43 Respiratory Rate 18 06/18/17 14:43 Blood Pressure 130/70 06/18/17 14:43 O2 Sat by Pulse Oximetry (%) 96 06/18/17 09:00 Constitutional: Yes: Calm Cardiovascular: Yes: Regular Rate and Rhythm Respiratory: Yes: Regular Gastrointestinal: Yes: Soft, Distention, Tenderness ( bilateral lower quadrants ). No: Rectal Bleeding, Tenderness, Epigastrium, Tenderness, Rebound, Vomiting Neurological: Yes: Alert Labs: CBC, BMP 06/17/17 07:00 06/18/17 08:15 Laboratory Last Values WBC 8.3 K/mm3 (4.0-10.0) 06/17/17 07:00 RBC 3.88 M/mm3 (3.60-5.2) 06/17/17 07:00 Hgb 12.6 GM/dL (10.7-15.3) 06/17/17 07:00 Hct 36.8 % (32.4-45.2) 06/17/17 07:00 MCV 94.7 fl (80-96) 06/17/17 07:00 MCH 32.6 pg (25.7-33.7) 06/17/17 07:00 MCHC 34.4 g/dl (32.0-36.0) 06/17/17 07:00 RDW 13.7 % (11.6-15.6) 06/17/17 07:00 Plt Count 246 K/MM3 (134-434) 06/17/17 07:00 MPV 7.7 fl (7.5-11.1) 06/17/17 07:00 Neutrophils % 74.2 % (42.8-82.8) D 06/17/17 07:00 Neutrophils % (Manual) 70.0 % (42.8-82.8) 06/16/17 09:20 Band Neutrophils % 0.0 % 06/16/17 09:20 Lymphocytes % 15.3 % (8-40) D 06/17/17 07:00 Lymphocytes % (Manual) 23.0 % (8-40) D 06/16/17 09:20 Monocytes % 8.0 % (3.8-10.2) 05/09/18 07:00 Monocytes % (Manual) 5 % (3.8-10.2) 06/16/17 09:20 Eosinophils % 2.1 % (0-4.5) 06/17/17 07:00 Eosinophils % (Manual) 1.0 % (0-4.5) 06/16/17 09:20 Basophils % 0.4 % (0-2.0) 06/17/17 07:00 Basophils % (Manual) 1.0 % (0-2.0) 06/16/17 09:20 Myelocytes % (Man) 0 % (0-2) 06/16/17 09:20 Promyelocytes % (Man) 0 % (0-2) 06/16/17 09:20 Blast Cells % (Manual) 0 % (0-0) 06/16/17 09:20 Nucleated RBC % 0 % (0-0) 06/16/17 09:20 Metamyelocytes 0 % (0-2) D 06/16/17 09:20 Platelet Estimate Normal 06/16/17 09:20 Sodium 145 mmol/L (136-145) 06/18/17 08:15 Potassium 3.8 mmol/L (3.5-5.1) 06/18/17 08:15 Chloride 113 mmol/L (98-107) H 06/18/17 08:15 Carbon Dioxide 22 mmol/L (21-32) 06/18/17 08:15 Anion Gap 10 (8-16) 06/18/17 08:15 BUN 10 mg/dL (7-18) 06/18/17 08:15 Creatinine 0.9 mg/dL (0.55-1.02) 06/18/17 08:15 Creat Clearance w eGFR > 60 (>60) 06/18/17 08:15 Random Glucose 133 mg/dL (74-106) H 06/18/17 08:15 Lactic Acid 1.3 mmol/L (0.0-2.0) 06/16/17 09:20 Calcium 8.0 mg/dL (8.5-10.1) L 06/18/17 08:15 Phosphorus 2.3 mg/dL (2.5-4.9) L 06/18/17 08:15 Magnesium 2.0 mg/dL (1.8-2.4) 06/17/17 07:00 Total Bilirubin 0.5 mg/dL (0.2-1.0) 06/18/17 08:15 AST 10 U/L (15-37) L 06/18/17 08:15 ALT 27 U/L (12-78) 06/18/17 08:15 Alkaline Phosphatase 120 U/L (45-117) H 06/18/17 08:15 Creatine Kinase 154 IU/L (26-192) 06/16/17 09:20 Creatine Kinase Index 2.6 % (0.0-5.0) 06/16/17 09:20 CK-MB (CK-2) 4.115 ng/mL (0.5-3.6) H 06/16/17 09:20 Troponin I < 0.02 ng/ml (0.00-0.05) 06/16/17 09:20 Total Protein 5.5 g/dl (6.4-8.2) L 06/18/17 08:15 Albumin 3.0 g/dl (3.4-5.0) L 06/18/17 08:15 Lipase 50 U/L (73-393) L 06/16/17 09:20 Urine Color Ltyellow 06/16/17 08:30 Urine Appearance Slcloudy 06/16/17 08:30 Urine pH 5.0 (5.0-8.0) 06/16/17 08:30 Ur Specific [place] 1.011 (1.001-1.035) 06/16/17 08:30 Urine Protein Negative (NEGATIVE) 06/16/17 08:30 Urine Glucose (UA) Negative (NEGATIVE) 06/16/17 08:30 Urine Ketones Negative (NEGATIVE) 06/16/17 08:30 Urine Blood Negative (NEGATIVE) 06/16/17 08:30 Urine Nitrite Negative (NEGATIVE) 06/16/17 08:30 Urine Bilirubin Negative (<2.0 mg/dL) 06/16/17 08:30 Urine Urobilinogen Negative mg/dL (0.2-1.0) 06/16/17 08:30 Ur Leukocyte Esterase 3+ (NEGATIVE) H 06/16/17 08:30 Urine WBC (Auto) 25 /hpf (3-5) 06/16/17 08:30 Urine RBC (Auto) 1 /hpf (0-3) 06/16/17 08:30 Problem List - Problems (1) Acute diverticulitis Code(s): K57.92 - DVTRCLI OF INTEST, PART UNSP, W/O PERF OR ABSCESS W/O BLEED (2) Diverticulitis Code(s): K57.92 - DVTRCLI OF INTEST, PART UNSP, W/O PERF OR ABSCESS W/O BLEED Assessment/Plan a 72-year-old female with appears to be acute diverticulitis, uncomplicated. Normal CBC and UA. Nonsurgical abdomen on exam although tender. Agree with current management. Continue to monitor closely. MiraLAX and Gatorade as tolerated over 12-24 hours. Continue soft diet a
[2017-06-18] MEDS ORDERED: POLYETHYLENE GLYCOL 3350 255 GM BTL PO ONE (16:30)
[2017-06-18] MEDS: SODIUM CHLORIDE 1,000 ML IV SCH (17:44)
[2017-06-18] MEDS: ATORVASTATIN CA 20 MG TABLET (FP) PO SCH (21:37)
[2017-06-19] MEDS: CYCLOBENZAPRINE HCL 10 MG TABLET (FP) PO SCH ×3 (06:23→21:39)
[2017-06-19] MEDS: LEVOTHYROXINE NA 25 MCG TABLET (FP) PO SCH (06:23)
[2017-06-19] MEDS: DICYCLOMINE HCL 10 MG CAPSULE PO SCH ×3 (06:23→21:39)
[2017-06-19] MEDS: ALBUTEROL SO4 0.083% IH SOL 2.5 MG/3 ML VIAL.NEB. NEB SCH ×3 (07:30→20:26)
[2017-06-19] MEDS: ENOXAPARIN NA (PORCINE) 40 MG/0.4 ML DISP.SYRIN SQ SCH (09:55)
[2017-06-19] MEDS: ARIPiprazole 5 MG TABLET (FP) PO SCH (09:55)
[2017-06-19] MEDS: risperiDONE 1 MG TABLET (FP) PO SCH ×2 (10:04→21:39)
--- NOTE | 2017-06-19 11:55 | PN ---
Progress Note (short form) - Note Progress Note: Subjective: The patient was seen and examined at the bedside, she reports having abdominal pain and nausea after eating breakfast this morning. Current Medications Generic Name Dose Route Start Last Admin Trade Name Freq PRN Reason Stop Dose Admin Albuterol Sulfate 1 amp 06/16/17 20:00 06/19/17 07:30 Ventolin 0.083% Nebulizer Soln - NEB 1 amp RTID NITESH Administration Aripiprazole 5 mg 06/17/17 10:00 06/19/17 09:55 Abilify PO 5 mg DAILY NITESH Administration Atorvastatin Calcium 20 mg 06/16/17 22:00 06/18/17 21:37 Lipitor - PO 20 mg HS NITESH Administration Cyclobenzaprine HCl 5 mg 06/16/17 22:00 06/19/17 06:23 Flexeril - PO 5 mg TID NITESH Administration Dicyclomine HCl 10 mg 06/16/17 17:30 06/19/17 06:23 Bentyl - PO 10 mg TID NITESH Administration Enoxaparin Sodium 40 mg 06/17/17 10:00 06/19/17 09:55 Lovenox - SQ 40 mg DAILY NITESH Administration Metronidazole 500 mg in 100 mls @ 100 mls/hr 06/16/17 18:00 06/19/17 09:58 Flagyl 500mg Premixed Ivpb - IVPB 100 mls/hr Q8H-IV NITESH Administration Levofloxacin 500 mg in 100 mls @ 100 mls/hr 06/17/17 10:00 06/19/17 11:23 Levaquin 500 Mg Premixed Ivpb - IVPB 100 mls/hr DAILY NITESH Administration Protocol Sodium Chloride 1,000 mls @ 75 mls/hr 06/16/17 17:15 06/19/17 00:00 Normal Saline - IV 75 mls/hr ASDIR NITESH Administration Levothyroxine Sodium 25 mcg 06/17/17 07:00 06/19/17 06:23 Synthroid - PO 25 mcg 0700 NITESH Administration Morphine Sulfate 2 mg 06/16/17 17:03 06/17/17 07:00 Morphine Sulfate IVPUSH 2 mg Q4H PRN Administration PAIN LEVEL 1-5 Ondansetron HCl 4 mg 06/16/17 17:04 Zofran Injection IVPUSH Q6H PRN NAUSEA AND/OR VOMITING Risperidone 1 mg 06/16/17 22:00 06/19/17 10:04 Risperdal - PO 1 mg BID NITESH Administration Objective: Vital Signs Period Temp Pulse Resp BP Sys/Lin Pulse Ox Last 24 Hr 98.1 F-98.4 F 69-80 18-20 130-140/62-95 97 Physical Exam: General: NAD, A&Ox3 Lungs: CTA bilaterally Heart: RRR, S1S2 Abd: Soft, distended. Diffuse abdominal tenderness. Normoactive bowel sounds Ext: Warm, well-perfused. 2+ DP/PT bilaterally CBCD WBC 8.3 K/mm3 (4.0-10.0) 06/17/17 07:00 RBC 3.88 M/mm3 (3.60-5.2) 06/17/17 07:00 Hgb 12.6 GM/dL (10.7-15.3) 06/17/17 07:00 Hct 36.8 % (32.4-45.2) 06/17/17 07:00 MCV 94.7 fl (80-96) 06/17/17 07:00 MCHC 34.4 g/dl (32.0-36.0) 06/17/17 07:00 RDW 13.7 % (11.6-15.6) 06/17/17 07:00 Plt Count 246 K/MM3 (134-434) 06/17/17 07:00 MPV 7.7 fl (7.5-11.1) 06/17/17 07:00 CMP Sodium 145 mmol/L (136-145) 06/18/17 08:15 Potassium 3.8 mmol/L (3.5-5.1) 06/18/17 08:15 Chloride 113 mmol/L (98-107) H 06/18/17 08:15 Carbon Dioxide 22 mmol/L (21-32) 06/18/17 08:15 Anion Gap 10 (8-16) 06/18/17 08:15 BUN 10 mg/dL (7-18) 06/18/17 08:15 Creatinine 0.9 mg/dL (0.55-1.02) 06/18/17 08:15 Creat Clearance w eGFR > 60 (>60) 06/18/17 08:15 Random Glucose 133 mg/dL (74-106) H 06/18/17 08:15 Calcium 8.0 mg/dL (8.5-10.1) L 06/18/17 08:15 Total Bilirubin 0.5 mg/dL (0.2-1.0) 06/18/17 08:15 AST 10 U/L (15-37) L 06/18/17 08:15 ALT 27 U/L (12-78) 06/18/17 08:15 Alkaline Phosphatase 120 U/L (45-117) H 06/18/17 08:15 Total Protein 5.5 g/dl (6.4-8.2) L 06/18/17 08:15 Albumin 3.0 g/dl (3.4-5.0) L 06/18/17 08:15 CARDIAC ENZYMES Creatine Kinase 154 IU/L (26-192) 06/16/17 09:20 Troponin I < 0.02 ng/ml (0.00-0.05) 06/16/17 09:20 Microbiology 06/17/17 06:45 Urine - Urine Clean Catch Urine Culture - Final NO GROWTH OBTAINED 06/16/17 12:57 Nasopharyngeal Swab Influenza Types A,B Antigen (TREVOR) - Final 06/16/17 12:57 Nasopharyngeal Swab - Final Assessment: This is a 72 year old female with PMHx of COPD, HTN, anemia, diverticulitis, GERD, parkinson's, hypothyroidism, bipolar disorder, CAD who presented to the ED with RLQ pain, cramping, diarrhea, nausea, vomiting Plan: 1) Acute diverticulitis - CTAP with suspicious findings for a mild degree of acute sigmoid diverticulitis without abscess formation - Continue Flagyl, Levaquin - Soft diet, however patient is reporting abdominal pain and nausea - F/u GI consult for further recommendations 2) Diarrhea - Now with loose stool likely 2/2 Miralax - Stool studies were ordered but uncollected 3) UTI? - UA with 3+ leuks - Urine culture with NGTD 4) Bipolar disorder 5) CAD - Holding ASA and plavix 2/2 increased risk for bleeding 2/2 inflammation in colon - Resume once symptoms improve 6) Hypothyroidism - Continue Synthroid 7) Hyperlipidemia - Continue Lipitor 8) F/E/N: - Monitor electrolytes - Hypophosphatemia: resolved - Soft diet 9) Prophylaxis: - Lovenox 40mg sq daily 10) Dispo: - Requires continued inpatient care CODE STATUS: FULL CODE Visit type - Emergency Visit Emergency Visit: Yes ED Registration Date: 06/17/17 Care time: The patient presented to the Emergency Department on the above date and was hospitalized for further evaluation of their emergent condition. - New Patient This patient is new to me today: Yes Date on this admission: 06/19/17 - Critical Care Critical Care patient: No
--- NOTE | 2017-06-19 16:05 | PN ---
Progress Note, Physician History of Present Illness: Reports lower abdominal pain. Was started on bowel regimen to yesterday and had loose stools this morning. Clinically remains the same. - Current Medication List Current Medications: Active Medications Albuterol Sulfate (Ventolin 0.083% Nebulizer Soln -) 1 amp NEB RTID [facility] Last Admin: 06/19/17 14:53 Dose: 1 amp Aripiprazole (Abilify) 5 mg PO DAILY [facility] Last Admin: 06/19/17 09:55 Dose: 5 mg Atorvastatin Calcium (Lipitor -) 20 mg PO HS [facility] Last Admin: 06/18/17 21:37 Dose: 20 mg Cyclobenzaprine HCl (Flexeril -) 5 mg PO TID [facility] Last Admin: 06/19/17 13:39 Dose: 5 mg Dicyclomine HCl (Bentyl -) 10 mg PO TID [facility] Last Admin: 06/19/17 13:40 Dose: 10 mg Enoxaparin Sodium (Lovenox -) 40 mg SQ DAILY [facility] Last Admin: 06/19/17 09:55 Dose: 40 mg Metronidazole (Flagyl 500mg Premixed Ivpb -) 500 mg in 100 mls @ 100 mls/hr IVPB Q8H-IV [facility] Last Admin: 06/19/17 09:58 Dose: 100 mls/hr Levofloxacin (Levaquin 500 Mg Premixed Ivpb -) 500 mg in 100 mls @ 100 mls/hr IVPB DAILY [facility] PRN Reason: Protocol Last Admin: 06/19/17 11:23 Dose: 100 mls/hr Sodium Chloride (Normal Saline -) 1,000 mls @ 75 mls/hr IV ASDIR [facility] Last Admin: 06/19/17 00:00 Dose: 75 mls/hr Levothyroxine Sodium (Synthroid -) 25 mcg PO 0700 [facility] Last Admin: 06/19/17 06:23 Dose: 25 mcg Morphine Sulfate (Morphine Sulfate) 2 mg IVPUSH Q4H PRN PRN Reason: PAIN LEVEL 1-5 Last Admin: 06/17/17 07:00 Dose: 2 mg Ondansetron HCl (Zofran Injection) 4 mg IVPUSH Q6H PRN PRN Reason: NAUSEA AND/OR VOMITING Risperidone (Risperdal -) 1 mg PO BID [facility] Last Admin: 06/19/17 10:04 Dose: 1 mg - Objective Vital Signs: Vital Signs Temperature 97.9 F 06/19/17 15:54 Pulse Rate 92 H 06/19/17 15:54 Respiratory Rate 20 06/19/17 15:54 Blood Pressure 135/66 06/19/17 15:54 O2 Sat by Pulse Oximetry (%) 97 06/19/17 09:00 Constitutional: Yes: Well Nourished, No Distress, Calm Gastrointestinal: Yes: Soft, Tenderness ( Bilateral, lower abdominal tenderness on deep palpation without guarding, or rebound). No: Melena, Rectal Bleeding, Vomiting Neurological: Yes: Alert, Oriented Labs: CBC, BMP 06/17/17 07:00 06/18/17 08:15 Laboratory Last Values WBC 8.3 K/mm3 (4.0-10.0) 06/17/17 07:00 RBC 3.88 M/mm3 (3.60-5.2) 06/17/17 07:00 Hgb 12.6 GM/dL (10.7-15.3) 06/17/17 07:00 Hct 36.8 % (32.4-45.2) 06/17/17 07:00 MCV 94.7 fl (80-96) 06/17/17 07:00 MCH 32.6 pg (25.7-33.7) 06/17/17 07:00 MCHC 34.4 g/dl (32.0-36.0) 06/17/17 07:00 RDW 13.7 % (11.6-15.6) 06/17/17 07:00 Plt Count 246 K/MM3 (134-434) 06/17/17 07:00 MPV 7.7 fl (7.5-11.1) 06/17/17 07:00 Neutrophils % 74.2 % (42.8-82.8) D 06/17/17 07:00 Neutrophils % (Manual) 70.0 % (42.8-82.8) 06/16/17 09:20 Band Neutrophils % 0.0 % 06/16/17 09:20 Lymphocytes % 15.3 % (8-40) D 06/17/17 07:00 Lymphocytes % (Manual) 23.0 % (8-40) D 06/16/17 09:20 Monocytes % 8.0 % (3.8-10.2) 06/17/17 07:00 Monocytes % (Manual) 5 % (3.8-10.2) 06/16/17 09:20 Eosinophils % 2.1 % (0-4.5) 06/17/17 07:00 Eosinophils % (Manual) 1.0 % (0-4.5) 06/16/17 09:20 Basophils % 0.4 % (0-2.0) 06/17/17 07:00 Basophils % (Manual) 1.0 % (0-2.0) 06/16/17 09:20 Myelocytes % (Man) 0 % (0-2) 06/16/17 09:20 Promyelocytes % (Man) 0 % (0-2) 06/16/17 09:20 Blast Cells % (Manual) 0 % (0-0) 06/16/17 09:20 Nucleated RBC % 0 % (0-0) 06/16/17 09:20 Metamyelocytes 0 % (0-2) D 06/16/17 09:20 Platelet Estimate Normal 06/16/17 09:20 Sodium 145 mmol/L (136-145) 06/18/17 08:15 Potassium 3.8 mmol/L (3.5-5.1) 06/18/17 08:15 Chloride 113 mmol/L (98-107) H 06/18/17 08:15 Carbon Dioxide 22 mmol/L (21-32) 06/18/17 08:15 Anion Gap 10 (8-16) 06/18/17 08:15 BUN 10 mg/dL (7-18) 06/18/17 08:15 Creatinine 0.9 mg/dL (0.55-1.02) 06/18/17 08:15 Creat Clearance w eGFR > 60 (>60) 06/18/17 08:15 Random Glucose 133 mg/dL (74-106) H 06/18/17 08:15 Lactic Acid 1.3 mmol/L (0.0-2.0) 06/16/17 09:20 Calcium 8.0 mg/dL (8.5-10.1) L 06/18/17 08:15 Phosphorus 2.5 mg/dL (2.5-4.9) 06/19/17 07:45 Magnesium 2.0 mg/dL (1.8-2.4) 06/17/17 07:00 Total Bilirubin 0.5 mg/dL (0.2-1.0) 06/18/17 08:15 AST 10 U/L (15-37) L 06/18/17 08:15 ALT 27 U/L (12-78) 06/18/17 08:15 Alkaline Phosphatase 120 U/L (45-117) H 06/18/17 08:15 Creatine Kinase 154 IU/L (26-192) 06/16/17 09:20 Creatine Kinase Index 2.6 % (0.0-5.0) 06/16/17 09:20 CK-MB (CK-2) 4.115 ng/mL (0.5-3.6) H 06/16/17 09:20 Troponin I < 0.02 ng/ml (0.00-0.05) 06/16/17 09:20 Total Protein 5.5 g/dl (6.4-8.2) L 06/18/17 08:15 Albumin 3.0 g/dl (3.4-5.0) L 06/18/17 08:15 Lipase 50 U/L (73-393) L 06/16/17 09:20 Urine Color Ltyellow 06/16/17 08:30 Urine Appearance Slcloudy 06/16/17 08:30 Urine pH 5.0 (5.0-8.0) 06/16/17 08:30 Ur Specific [place] 1.011 (1.001-1.035) 06/16/17 08:30 Urine Protein Negative (NEGATIVE) 06/16/17 08:30 Urine Glucose (UA) Negative (NEGATIVE) 06/16/17 08:30 Urine Ketones Negative (NEGATIVE) 06/16/17 08:30 Urine Blood Negative (NEGATIVE) 06/16/17 08:30 Urine Nitrite Negative (NEGATIVE) 06/16/17 08:30 Urine Bilirubin Negative (<2.0 mg/dL) 06/16/17 08:30 Urine Urobilinogen Negative mg/dL (0.2-1.0) 06/16/17 08:30 Ur Leukocyte Esterase 3+ (NEGATIVE) H 06/16/17 08:30 Urine WBC (Auto) 25 /hpf (3-5) 06/16/17 08:30 Urine RBC (Auto) 1 /hpf (0-3) 06/16/17 08:30 Problem List - Problems (1) Acute diverticulitis Code(s): K57.92 - DVTRCLI OF INTEST, PART UNSP, W/O PERF OR ABSCESS W/O BLEED (2) Diverticulitis Code(s): K57.92 - DVTRCLI OF INTEST, PART UNSP, W/O PERF OR ABSCESS W/O BLEED Assessment/Plan Continuous lower abdominal pain despite Multiple day therapy. Repeat CT abdomen/pelvis with contrast. DC laxatives.
[2017-06-19] MEDS: SODIUM CHLORIDE 1,000 ML IV SCH ×2 (17:38)
[2017-06-19] MEDS ORDERED: PT OWN MED DRAWER 7, Y5N ONE (18:51)
[2017-06-19] MEDS: ATORVASTATIN CA 20 MG TABLET (FP) PO SCH (21:39)
[2017-06-20] MEDS: LEVOTHYROXINE NA 25 MCG TABLET (FP) PO SCH (05:59)
[2017-06-20] MEDS: DICYCLOMINE HCL 10 MG CAPSULE PO SCH ×3 (05:59→21:57)
[2017-06-20] MEDS: CYCLOBENZAPRINE HCL 10 MG TABLET (FP) PO SCH ×3 (05:59→21:56)
[2017-06-20] MEDS: ALBUTEROL SO4 0.083% IH SOL 2.5 MG/3 ML VIAL.NEB. NEB SCH ×3 (08:13→20:32)
--- NOTE | 2017-06-20 09:32 | PN ---
Progress Note (short form) - Note Progress Note: Subjective: The patient was seen and examined at the bedside, she reports having RLQ abdominal pain today CTAP pending to r/o abscess Current Medications Generic Name Dose Route Start Last Admin Trade Name Freq PRN Reason Stop Dose Admin Albuterol Sulfate 1 amp 06/16/17 20:00 06/20/17 08:13 Ventolin 0.083% Nebulizer Soln - NEB 1 amp RTID NITESH Administration Aripiprazole 5 mg 06/17/17 10:00 06/19/17 09:55 Abilify PO 5 mg DAILY NITESH Administration Atorvastatin Calcium 20 mg 06/16/17 22:00 06/19/17 21:39 Lipitor - PO 20 mg HS NITESH Administration Cyclobenzaprine HCl 5 mg 06/16/17 22:00 06/20/17 05:59 Flexeril - PO 5 mg TID NITESH Administration Dicyclomine HCl 10 mg 06/16/17 17:30 06/20/17 05:59 Bentyl - PO 10 mg TID NITESH Administration Enoxaparin Sodium 40 mg 06/17/17 10:00 06/19/17 09:55 Lovenox - SQ 40 mg DAILY NITESH Administration Metronidazole 500 mg in 100 mls @ 100 mls/hr 06/16/17 18:00 06/20/17 02:15 Flagyl 500mg Premixed Ivpb - IVPB 100 mls/hr Q8H-IV NITESH Administration Levofloxacin 500 mg in 100 mls @ 100 mls/hr 06/17/17 10:00 06/19/17 11:23 Levaquin 500 Mg Premixed Ivpb - IVPB 100 mls/hr DAILY NITESH Administration Protocol Sodium Chloride 1,000 mls @ 75 mls/hr 06/16/17 17:15 06/19/17 17:38 Normal Saline - IV 75 mls/hr ASDIR NITESH Administration Levothyroxine Sodium 25 mcg 06/17/17 07:00 06/20/17 05:59 Synthroid - PO 25 mcg 0700 NITESH Administration Ondansetron HCl 4 mg 06/16/17 17:04 Zofran Injection IVPUSH Q6H PRN NAUSEA AND/OR VOMITING Risperidone 1 mg 06/16/17 22:00 06/19/17 21:39 Risperdal - PO 1 mg BID NITESH Administration Objective: Vital Signs Period Temp Pulse Resp BP Sys/Lin Pulse Ox Last 24 Hr 97.9 F-98.2 F 72-92 20-20 129-152/52-79 Physical Exam: General: NAD, A&Ox3 Lungs: CTA bilaterally Heart: RRR, S1S2 Abd: Soft, distended. Diffuse abdominal tenderness. Normoactive bowel sounds Ext: Warm, well-perfused. 2+ DP/PT bilaterally CBCD WBC 8.3 K/mm3 (4.0-10.0) 06/17/17 07:00 RBC 3.88 M/mm3 (3.60-5.2) 06/17/17 07:00 Hgb 12.6 GM/dL (10.7-15.3) 06/17/17 07:00 Hct 36.8 % (32.4-45.2) 06/17/17 07:00 MCV 94.7 fl (80-96) 06/17/17 07:00 MCHC 34.4 g/dl (32.0-36.0) 06/17/17 07:00 RDW 13.7 % (11.6-15.6) 06/17/17 07:00 Plt Count 246 K/MM3 (134-434) 06/17/17 07:00 MPV 7.7 fl (7.5-11.1) 06/17/17 07:00 CMP Sodium 145 mmol/L (136-145) 06/18/17 08:15 Potassium 3.8 mmol/L (3.5-5.1) 06/18/17 08:15 Chloride 113 mmol/L (98-107) H 06/18/17 08:15 Carbon Dioxide 22 mmol/L (21-32) 06/18/17 08:15 Anion Gap 10 (8-16) 06/18/17 08:15 BUN 10 mg/dL (7-18) 06/18/17 08:15 Creatinine 0.9 mg/dL (0.55-1.02) 06/18/17 08:15 Creat Clearance w eGFR > 60 (>60) 06/18/17 08:15 Random Glucose 133 mg/dL (74-106) H 06/18/17 08:15 Calcium 8.0 mg/dL (8.5-10.1) L 06/18/17 08:15 Total Bilirubin 0.5 mg/dL (0.2-1.0) 06/18/17 08:15 AST 10 U/L (15-37) L 06/18/17 08:15 ALT 27 U/L (12-78) 06/18/17 08:15 Alkaline Phosphatase 120 U/L (45-117) H 06/18/17 08:15 Total Protein 5.5 g/dl (6.4-8.2) L 06/18/17 08:15 Albumin 3.0 g/dl (3.4-5.0) L 06/18/17 08:15 CARDIAC ENZYMES Creatine Kinase 154 IU/L (26-192) 06/16/17 09:20 Troponin I < 0.02 ng/ml (0.00-0.05) 06/16/17 09:20 Microbiology 06/17/17 06:45 Urine - Urine Clean Catch Urine Culture - Final NO GROWTH OBTAINED 06/16/17 12:57 Nasopharyngeal Swab Influenza Types A,B Antigen (TREVOR) - Final 06/16/17 12:57 Nasopharyngeal Swab - Final Assessment: This is a 72 year old female with PMHx of COPD, HTN, anemia, diverticulitis, GERD, parkinson's, hypothyroidism, bipolar disorder, CAD who presented to the ED with RLQ pain, cramping, diarrhea, nausea, vomiting Plan: 1) Acute diverticulitis - CTAP with suspicious findings for a mild degree of acute sigmoid diverticulitis without abscess formation - Will repeat CTAP with contrast today to r/o abscess given the patient still has complaints of RLQ pain - Continue Flagyl, Levaquin - Appreciate GI consult for further recommendations 2) Diarrhea - Continues to have loose stools - Stool studies were ordered but uncollected 3) UTI? - UA with 3+ leuks - Urine culture with NGTD 4) Bipolar disorder 5) CAD - Continue to hold ASA and Plavix until abscess ruled out and no surgical intervention is needed - Resume once symptoms improve 6) Hypothyroidism - Continue Synthroid 7) Hyperlipidemia - Continue Lipitor 8) F/E/N: - Monitor electrolytes - Soft diet 9) Prophylaxis: - Lovenox 40mg sq daily 10) Dispo: - Requires continued inpatient care CODE STATUS: FULL CODE Visit type - Emergency Visit Emergency Visit: Yes ED Registration Date: 06/17/17 Care time: The patient presented to the Emergency Department on the above date and was hospitalized for further evaluation of their emergent condition. - New Patient This patient is new to me today: No - Critical Care Critical Care patient: No
[2017-06-20] MEDS: risperiDONE 1 MG TABLET (FP) PO SCH ×2 (10:22→21:56)
[2017-06-20] MEDS: ARIPiprazole 5 MG TABLET (FP) PO SCH (10:22)
[2017-06-20] MEDS: ENOXAPARIN NA (PORCINE) 40 MG/0.4 ML DISP.SYRIN SQ SCH (10:22)
[2017-06-20] MEDS: SODIUM CHLORIDE 1,000 ML IV SCH (17:57)
[2017-06-20] MEDS ORDERED: PT OWN MED DRAWER 7, Y5N ONE (21:11)
[2017-06-20] MEDS: ATORVASTATIN CA 20 MG TABLET (FP) PO SCH (21:57)
[2017-06-21] MEDS: CYCLOBENZAPRINE HCL 10 MG TABLET (FP) PO SCH ×3 (06:17→21:07)
[2017-06-21] MEDS: DICYCLOMINE HCL 10 MG CAPSULE PO SCH ×3 (06:18→21:07)
[2017-06-21] MEDS: LEVOTHYROXINE NA 25 MCG TABLET (FP) PO SCH (06:19)
[2017-06-21] MEDS: SODIUM CHLORIDE 1,000 ML IV SCH ×3 (06:46→23:04)
[2017-06-21] MEDS: ALBUTEROL SO4 0.083% IH SOL 2.5 MG/3 ML VIAL.NEB. NEB SCH ×2 (08:01→14:50)
[2017-06-21] MEDS ORDERED: PT OWN MED DRAWER 7, Y5N ONE ×3 (09:34→20:37)
[2017-06-21] MEDS: risperiDONE 1 MG TABLET (FP) PO SCH ×2 (09:40→21:07)
[2017-06-21] MEDS: ENOXAPARIN NA (PORCINE) 40 MG/0.4 ML DISP.SYRIN SQ SCH (09:40)
[2017-06-21] MEDS: ARIPiprazole 5 MG TABLET (FP) PO SCH (09:41)
--- NOTE | 2017-06-21 09:49 | PN ---
Progress Note (short form) - Note Progress Note: Subjective: The patient was seen and examined at the bedside, she still complains of RLQ pain, no tenderness on exam CTAP yesterday with resolving acute diverticulitis Current Medications Generic Name Dose Route Start Last Admin Trade Name Freq PRN Reason Stop Dose Admin Albuterol Sulfate 1 amp 06/16/17 20:00 06/21/17 08:01 Ventolin 0.083% Nebulizer Soln - NEB 1 amp RTID NITESH Administration Aripiprazole 5 mg 06/17/17 10:00 06/21/17 09:41 Abilify PO 5 mg DAILY NITESH Administration Atorvastatin Calcium 20 mg 06/16/17 22:00 06/20/17 21:57 Lipitor - PO 20 mg HS NITESH Administration Cyclobenzaprine HCl 5 mg 06/16/17 22:00 06/21/17 06:17 Flexeril - PO 5 mg TID NITESH Administration Dicyclomine HCl 10 mg 06/16/17 17:30 06/21/17 06:18 Bentyl - PO 10 mg TID NITESH Administration Enoxaparin Sodium 40 mg 06/17/17 10:00 06/21/17 09:40 Lovenox - SQ 40 mg DAILY NITESH Administration Metronidazole 500 mg in 100 mls @ 100 mls/hr 06/16/17 18:00 06/21/17 09:40 Flagyl 500mg Premixed Ivpb - IVPB 100 mls/hr Q8H-IV NITESH Administration Levofloxacin 500 mg in 100 mls @ 100 mls/hr 06/17/17 10:00 06/20/17 10:21 Levaquin 500 Mg Premixed Ivpb - IVPB 100 mls/hr DAILY NITESH Administration Protocol Sodium Chloride 1,000 mls @ 75 mls/hr 06/16/17 17:15 06/21/17 06:46 Normal Saline - IV 75 mls/hr ASDIR NITESH Administration Levothyroxine Sodium 25 mcg 06/17/17 07:00 06/21/17 06:19 Synthroid - PO 25 mcg 0700 NITESH Administration Ondansetron HCl 4 mg 06/16/17 17:04 Zofran Injection IVPUSH Q6H PRN NAUSEA AND/OR VOMITING Risperidone 1 mg 06/16/17 22:00 06/21/17 09:40 Risperdal - PO 1 mg BID NITESH Administration Objective: Vital Signs Period Temp Pulse Resp BP Sys/Lin Pulse Ox Last 24 Hr 98 F-98.7 F 86-106 16-20 136-140/53-63 97 Physical Exam: General: NAD, A&Ox3 Lungs: CTA bilaterally Heart: RRR, S1S2 Abd: Soft, non-tender. Normoactive bowel sounds Ext: Warm, well-perfused. 2+ DP/PT bilaterally CBCD WBC 8.3 K/mm3 (4.0-10.0) 06/17/17 07:00 RBC 3.88 M/mm3 (3.60-5.2) 06/17/17 07:00 Hgb 12.6 GM/dL (10.7-15.3) 06/17/17 07:00 Hct 36.8 % (32.4-45.2) 06/17/17 07:00 MCV 94.7 fl (80-96) 06/17/17 07:00 MCHC 34.4 g/dl (32.0-36.0) 06/17/17 07:00 RDW 13.7 % (11.6-15.6) 06/17/17 07:00 Plt Count 246 K/MM3 (134-434) 06/17/17 07:00 MPV 7.7 fl (7.5-11.1) 06/17/17 07:00 CMP Sodium 145 mmol/L (136-145) 06/18/17 08:15 Potassium 3.8 mmol/L (3.5-5.1) 06/18/17 08:15 Chloride 113 mmol/L (98-107) H 06/18/17 08:15 Carbon Dioxide 22 mmol/L (21-32) 06/18/17 08:15 Anion Gap 10 (8-16) 06/18/17 08:15 BUN 10 mg/dL (7-18) 06/18/17 08:15 Creatinine 0.9 mg/dL (0.55-1.02) 06/18/17 08:15 Creat Clearance w eGFR > 60 (>60) 06/18/17 08:15 Random Glucose 133 mg/dL (74-106) H 06/18/17 08:15 Calcium 8.0 mg/dL (8.5-10.1) L 06/18/17 08:15 Total Bilirubin 0.5 mg/dL (0.2-1.0) 06/18/17 08:15 AST 10 U/L (15-37) L 06/18/17 08:15 ALT 27 U/L (12-78) 06/18/17 08:15 Alkaline Phosphatase 120 U/L (45-117) H 06/18/17 08:15 Total Protein 5.5 g/dl (6.4-8.2) L 06/18/17 08:15 Albumin 3.0 g/dl (3.4-5.0) L 06/18/17 08:15 CARDIAC ENZYMES Creatine Kinase 154 IU/L (26-192) 06/16/17 09:20 Troponin I < 0.02 ng/ml (0.00-0.05) 06/16/17 09:20 Microbiology 06/17/17 06:45 Urine - Urine Clean Catch Urine Culture - Final NO GROWTH OBTAINED 06/16/17 12:57 Nasopharyngeal Swab Influenza Types A,B Antigen (TREVOR) - Final 06/16/17 12:57 Nasopharyngeal Swab - Final Assessment: This is a 72 year old female with PMHx of COPD, HTN, anemia, diverticulitis, GERD, parkinson's, hypothyroidism, bipolar disorder, CAD who presented to the ED with RLQ pain, cramping, diarrhea, nausea, vomiting Plan: 1) Acute diverticulitis - CTAP with suspicious findings for a mild degree of acute sigmoid diverticulitis without abscess formation - Patient continues to have complaints of RLQ pain, CTAP yesterday with resolving acute diverticulitis. Exam today with no tenderness - Continue Flagyl, Levaquin - Appreciate GI consult 2) Diarrhea - Resolved - Stool studies were ordered but uncollected 3) UTI? - UA with 3+ leuks - Urine culture with NGTD 4) Bipolar disorder 5) CAD - Continue to hold ASA and Plavix until abscess ruled out and no surgical intervention is needed - Resume once symptoms improve 6) Hypothyroidism - Continue Synthroid 7) Hyperlipidemia - Continue Lipitor 8) F/E/N: - Monitor electrolytes - Soft diet 9) Prophylaxis: - Lovenox 40mg sq daily 10) Dispo: - Can be discharged today, awaiting to hear from [facility] if they will accept the patient over the weekend CODE STATUS: FULL CODE Visit type - Emergency Visit Emergency Visit: Yes ED Registration Date: 06/17/17 Care time: The patient presented to the Emergency Department on the above date and was hospitalized for further evaluation of their emergent condition. - New Patient This patient is new to me today: No - Critical Care Critical Care patient: No
[2017-06-21] MEDS: ATORVASTATIN CA 20 MG TABLET (FP) PO SCH (21:07)
[2017-06-22] MEDS: CYCLOBENZAPRINE HCL 10 MG TABLET (FP) PO SCH ×2 (06:19→13:36)
[2017-06-22] MEDS: LEVOTHYROXINE NA 25 MCG TABLET (FP) PO SCH (06:19)
[2017-06-22] MEDS: DICYCLOMINE HCL 10 MG CAPSULE PO SCH ×2 (06:19→13:36)
--- NOTE | 2017-06-22 08:13 | DS ---
Physical Examination Vital Signs: Vital Signs Temperature 98.4 F 06/22/17 06:17 Pulse Rate 79 06/22/17 06:17 Respiratory Rate 20 06/22/17 06:17 Blood Pressure 123/69 06/22/17 06:17 O2 Sat by Pulse Oximetry (%) 92 L 06/21/17 21:00 Labs: CBC, BMP 06/17/17 07:00 06/18/17 08:15 Discharge Summary Reason For Visit: DIVERTICULITIS LARGE INTESTINE W/O PERFORATION Current Active Problems Acute diverticulitis (Acute) Diverticulitis (Acute) Condition: Improved - Instructions Diet, Activity, Other Instructions: Please return to the ED with new, persistent, or worsening symptoms. Please follow-up with providers as indicated. Referrals: Jaswinder Maldonado [Primary Care Provider] - 1 Week José Miguel Bonds MD [Staff Physician] - (Please follow-up with GI within 1-2 days for further evaluation of your resolving acute diverticulitis) Disposition: HOME - Home Medications Comprehensive Discharge Medication List: Ambulatory Orders Alendronate Na [Fosamax (Weekly)] 70 mg PO MO 04/19/16 Aripiprazole [Abilify -] 5 mg PO DAILY 04/19/16 Aspirin [ASA -] 81 mg PO DAILY 04/19/16 Atorvastatin Ca [Lipitor] 20 mg PO HS 04/19/16 Clopidogrel Bisulfate [Plavix -] 75 mg PO DAILY 04/19/16 Levothyroxine [Synthroid -] 25 mcg PO DAILY 04/19/16 Solifenacin Succinate [Vesicare -] 10 mg PO DAILY 04/19/16 Albuterol 0.083% Nebulizer Shavon [Ventolin 0.083% Nebulizer Soln -] 1 amp NEB TID 09/01/16 Fluticasone Prop 0.05% Nasal [Flonase -] 2 spray NS DAILY 09/01/16 Pantoprazole Sodium [Protonix -] 20 mg PO DAILY 09/01/16 Tiotropium [place] [Spiriva] 2 inh PO DAILY 09/01/16 Budesonide [Pulmicort Flexhaler] 180 mcg IH BID 06/16/17 Cyclobenzaprine HCl 5 mg PO TID 06/16/17 Dicyclomine HCl 10 mg PO Q8H 06/16/17 Ferrous Sulfate 325 mg PO DAILY 06/16/17 Multivitamins [Multivit ([facility] Formul[facility])] 1 tab PO DAILY 06/16/17 Naproxen 500 mg PO TID 06/16/17 Risperidone [Risperdal -] 1 mg PO BID 06/16/17 Levofloxacin [Levaquin] 500 mg PO DAILY #3 tablet 06/22/17 metroNIDAZOLE [Flagyl -] 500 mg PO Q8H #10 tablet 06/22/17
[2017-06-22] MEDS ORDERED: PT OWN MED DRAWER 7, Y5N ONE ×2 (09:21→13:34)
[2017-06-22] MEDS: risperiDONE 1 MG TABLET (FP) PO SCH (09:24)
[2017-06-22] MEDS: ARIPiprazole 5 MG TABLET (FP) PO SCH (09:25)
[2017-06-22] MEDS: ENOXAPARIN NA (PORCINE) 40 MG/0.4 ML DISP.SYRIN SQ SCH (09:25)
--- NOTE | 2017-06-22 13:24 | PN ---
Progress Note, Physician History of Present Illness: Reports lower abdominal pain and buring on urination. CT a/p noted. near resolution of colitis. Tolerating diet w/o pain, nausea, vomiting, diarrhea. - Current Medication List Current Medications: Active Medications Aripiprazole (Abilify) 5 mg PO DAILY [facility] Last Admin: 06/22/17 09:25 Dose: 5 mg Atorvastatin Calcium (Lipitor -) 20 mg PO HS [facility] Last Admin: 06/21/17 21:07 Dose: 20 mg Cyclobenzaprine HCl (Flexeril -) 5 mg PO TID [facility] Last Admin: 06/22/17 06:19 Dose: 5 mg Dicyclomine HCl (Bentyl -) 10 mg PO TID [facility] Last Admin: 06/22/17 06:19 Dose: 10 mg Enoxaparin Sodium (Lovenox -) 40 mg SQ DAILY [facility] Last Admin: 06/22/17 09:25 Dose: 40 mg Metronidazole (Flagyl 500mg Premixed Ivpb -) 500 mg in 100 mls @ 100 mls/hr IVPB Q8H-IV [facility] Last Admin: 06/22/17 09:25 Dose: 100 mls/hr Levofloxacin (Levaquin 500 Mg Premixed Ivpb -) 500 mg in 100 mls @ 100 mls/hr IVPB DAILY [facility] PRN Reason: Protocol Last Admin: 06/22/17 11:31 Dose: 100 mls/hr Sodium Chloride (Normal Saline -) 1,000 mls @ 75 mls/hr IV ASDIR [facility] Last Admin: 06/21/17 23:04 Dose: 75 mls/hr Levothyroxine Sodium (Synthroid -) 25 mcg PO 0700 [facility] Last Admin: 06/22/17 06:19 Dose: 25 mcg Ondansetron HCl (Zofran Injection) 4 mg IVPUSH Q6H PRN PRN Reason: NAUSEA AND/OR VOMITING Risperidone (Risperdal -) 1 mg PO BID [facility] Last Admin: 06/22/17 09:24 Dose: 1 mg - Objective Vital Signs: Vital Signs Temperature 98.4 F 06/22/17 06:17 Pulse Rate 79 06/22/17 06:17 Respiratory Rate 20 06/22/17 06:17 Blood Pressure 123/69 06/22/17 06:17 O2 Sat by Pulse Oximetry (%) 92 L 06/21/17 21:00 Constitutional: Yes: Well Nourished, No Distress, Calm Gastrointestinal: Yes: Normal Bowel Sounds, Soft. No: Melena, Tenderness, Vomiting Neurological: Yes: Alert Labs: CBC, BMP 06/17/17 07:00 06/18/17 08:15 Laboratory Last Values WBC 8.3 K/mm3 (4.0-10.0) 06/17/17 07:00 RBC 3.88 M/mm3 (3.60-5.2) 06/17/17 07:00 Hgb 12.6 GM/dL (10.7-15.3) 06/17/17 07:00 Hct 36.8 % (32.4-45.2) 06/17/17 07:00 MCV 94.7 fl (80-96) 06/17/17 07:00 MCH 32.6 pg (25.7-33.7) 06/17/17 07:00 MCHC 34.4 g/dl (32.0-36.0) 06/17/17 07:00 RDW 13.7 % (11.6-15.6) 06/17/17 07:00 Plt Count 246 K/MM3 (134-434) 06/17/17 07:00 MPV 7.7 fl (7.5-11.1) 06/17/17 07:00 Neutrophils % 74.2 % (42.8-82.8) D 06/17/17 07:00 Neutrophils % (Manual) 70.0 % (42.8-82.8) 06/16/17 09:20 Band Neutrophils % 0.0 % 06/16/17 09:20 Lymphocytes % 15.3 % (8-40) D 06/17/17 07:00 Lymphocytes % (Manual) 23.0 % (8-40) D 06/16/17 09:20 Monocytes % 8.0 % (3.8-10.2) 06/17/17 07:00 Monocytes % (Manual) 5 % (3.8-10.2) 06/16/17 09:20 Eosinophils % 2.1 % (0-4.5) 06/17/17 07:00 Eosinophils % (Manual) 1.0 % (0-4.5) 06/16/17 09:20 Basophils % 0.4 % (0-2.0) 06/17/17 07:00 Basophils % (Manual) 1.0 % (0-2.0) 06/16/17 09:20 Myelocytes % (Man) 0 % (0-2) 06/16/17 09:20 Promyelocytes % (Man) 0 % (0-2) 06/16/17 09:20 Blast Cells % (Manual) 0 % (0-0) 06/16/17 09:20 Nucleated RBC % 0 % (0-0) 06/16/17 09:20 Metamyelocytes 0 % (0-2) D 06/16/17 09:20 Platelet Estimate Normal 06/16/17 09:20 Sodium 145 mmol/L (136-145) 06/18/17 08:15 Potassium 3.8 mmol/L (3.5-5.1) 06/18/17 08:15 Chloride 113 mmol/L (98-107) H 06/18/17 08:15 Carbon Dioxide 22 mmol/L (21-32) 06/18/17 08:15 Anion Gap 10 (8-16) 06/18/17 08:15 BUN 10 mg/dL (7-18) 06/18/17 08:15 Creatinine 0.9 mg/dL (0.55-1.02) 06/18/17 08:15 Creat Clearance w eGFR > 60 (>60) 06/18/17 08:15 Random Glucose 133 mg/dL (74-106) H 06/18/17 08:15 Lactic Acid 1.3 mmol/L (0.0-2.0) 06/16/17 09:20 Calcium 8.0 mg/dL (8.5-10.1) L 06/18/17 08:15 Phosphorus 2.5 mg/dL (2.5-4.9) 06/19/17 07:45 Magnesium 2.0 mg/dL (1.8-2.4) 06/17/17 07:00 Total Bilirubin 0.5 mg/dL (0.2-1.0) 06/18/17 08:15 AST 10 U/L (15-37) L 06/18/17 08:15 ALT 27 U/L (12-78) 06/18/17 08:15 Alkaline Phosphatase 120 U/L (45-117) H 06/18/17 08:15 Creatine Kinase 154 IU/L (26-192) 06/16/17 09:20 Creatine Kinase Index 2.6 % (0.0-5.0) 06/16/17 09:20 CK-MB (CK-2) 4.115 ng/mL (0.5-3.6) H 06/16/17 09:20 Troponin I < 0.02 ng/ml (0.00-0.05) 06/16/17 09:20 Total Protein 5.5 g/dl (6.4-8.2) L 06/18/17 08:15 Albumin 3.0 g/dl (3.4-5.0) L 06/18/17 08:15 Lipase 50 U/L (73-393) L 06/16/17 09:20 Urine Color Ltyellow 06/16/17 08:30 Urine Appearance Slcloudy 06/16/17 08:30 Urine pH 5.0 (5.0-8.0) 06/16/17 08:30 Ur Specific [place] 1.011 (1.001-1.035) 06/16/17 08:30 Urine Protein Negative (NEGATIVE) 06/16/17 08:30 Urine Glucose (UA) Negative (NEGATIVE) 06/16/17 08:30 Urine Ketones Negative (NEGATIVE) 06/16/17 08:30 Urine Blood Negative (NEGATIVE) 06/16/17 08:30 Urine Nitrite Negative (NEGATIVE) 06/16/17 08:30 Urine Bilirubin Negative (<2.0 mg/dL) 06/16/17 08:30 Urine Urobilinogen Negative mg/dL (0.2-1.0) 06/16/17 08:30 Ur Leukocyte Esterase 3+ (NEGATIVE) H 06/16/17 08:30 Urine WBC (Auto) 25 /hpf (3-5) 06/16/17 08:30 Urine RBC (Auto) 1 /hpf (0-3) 06/16/17 08:30 - ....Imaging Cat Scan: Report Reviewed Problem List - Problems (1) Acute diverticulitis Code(s): K57.92 - DVTRCLI OF INTEST, PART UNSP, W/O PERF OR ABSCESS W/O BLEED (2) Diverticulitis Code(s): K57.92 - DVTRCLI OF INTEST, PART UNSP, W/O PERF OR ABSCESS W/O BLEED Assessment/Plan Diet as tolerated, avoid hard stools, constipation.
[2017-06-22 13:29] VITALS: BP 149/70; PULSE 75; TEMP 98
== END 2017-06-22 14:06 | disposition home or self-care (01) | DRG 392 ==
LOC: JER 07:27 → JERBED 14:56 → J8W 20:25 → OBSVTOIN 06-17 09:25
PROVIDERS: ADMIT Hospitalist; ATTEND Registered Nurse
DX: K57.32 Diverticulitis of large intestine without perforation or abscess without bleeding (principal); N39.0 Urinary tract infection, site not specified; I10 Essential (primary) hypertension; J44.9 Chronic obstructive pulmonary disease, unspecified; E83.39 Other disorders of phosphorus metabolism; E86.0 Dehydration; K21.9 Gastro-esophageal reflux disease without esophagitis; D64.9 Anemia, unspecified; Z88.0 Allergy status to penicillin; F31.9 Bipolar disorder, unspecified; I25.10 Atherosclerotic heart disease of native coronary artery without angina pectoris; E03.9 Hypothyroidism, unspecified; E78.5 Hyperlipidemia, unspecified; G20 Parkinson's disease; R19.7 Diarrhea, unspecified; R33.9 Retention of urine, unspecified
CPT/HCPCS: 36415; 74177-TC; 80053; 81003; 81015; 82550; 82553; 83605; 83690; 83735; 84100; 84484; 85025; 87086; 87804; 93005; 93010; 94640; 99283-25; G0378; J2794; J7030

== ENCOUNTER 2017-11-25 13:25 | Inpatient (IN) | payer OTHER ==
--- NOTE | 2017-11-25 13:38 | PDOC ---
History of Present Illness <Christian Neal - Last Filed: 11/25/17 17:04> - General History Source: Patient Exam Limitations: No Limitations - History of Present Illness Initial Comments: 11/25/17 13:50 72-year-old female with past medical history of COPD, DVT, anemia, HLD, hypothyroidism, CAD, diverticulitis, bipolar disorder BIBA from [facility] emergency department for cough x1 week. She states that her cough is nonproductive. She admits to lower anterior rib pain, shortness of breath, runny nose, sore throat. She denies nausea, diarrhea, abdominal pain, weakness, numbness, tingling, chest pain, palpitations, lower extremity swelling, dysuria. PCP - Dr. Maldonado Allergies - morphine, penicillin <Patrica Davies - Last Filed: 11/25/17 23:45> - General Chief Complaint: Chest Pain Stated Complaint: CHEST PAIN/FEVER 102 Time Seen by Provider: 11/25/17 13:37 Past History <Christian Neal - Last Filed: 11/25/17 17:04> - Past Medical History Anemia: Yes Asthma: Yes Cancer: No Cardiac Disorders: (hx of chest pain) CVA: No COPD: Yes (PT STATED) CHF: No DVT: No Dementia: No Diabetes: No GI Disorders: Yes (GERD) Disorders: Yes (incontinence) HTN: Yes Hypercholesterolemia: Yes Liver Disease: No Psychiatric Problems: Yes (BiPolar) Seizures: Yes Thyroid Disease: Yes (HYPO.) - Surgical History Abdominal Surgery: No Appendectomy: No Cardiac Surgery: No Cholecystectomy: No Lung Surgery: No Neurologic Surgery: No Orthopedic Surgery: No - Immunization History Td Vaccination: (unknown) Immunization Up to Date: No - Suicide/Smoking/Psychosocial Hx Smoking Status: No Smoking History: Never smoked Years of Tobacco Use: 0 Have you smoked in the past 12 months: No Number of Cigarettes Smoked Daily: 0 Cigars Per Day: 0 Hx Alcohol Use: No Drug/Substance Use Hx: No Substance Use Type: None Hx Substance Use Treatment: No <Roberto Carlos Daviesa - Last Filed: 11/25/17 23:45> - Past Medical History Allergies/Adverse Reactions: Allergies Allergy/AdvReac Type Severity Reaction Status Date / Time morphine Allergy Unknown Verified 11/25/17 13:28 Penicillins Allergy Unknown Verified 11/25/17 13:28 chocolate Allergy Unknown Uncoded 11/25/17 13:28 Home Medications: Ambulatory Orders Albuterol Sulfate Inhaler - [Ventolin Hfa Inhaler -] 1 puff IH TID 11/25/17 Alendronate Sodium/Vitamin D3 [Fosamax Plus D 70 mg-5,600 Iu] 1 each PO WEEKLY 11/25/17 Aripiprazole [Abilify] 5 mg PO DAILY 11/25/17 Aspirin 81 mg PO DAILY 11/25/17 Atorvastatin Ca [Lipitor] 20 mg PO HS 11/25/17 Budesonide [Pulmicort Flexhaler] 180 mcg IH BID 11/25/17 Clopidogrel Bisulfate [Plavix] 75 mg PO DAILY 11/25/17 Cyclobenzaprine HCl [Flexeril -] 5 mg PO TID 11/25/17 Ferrous Sulfate [Feosol] 325 mg PO DAILY 11/25/17 Levothyroxine [Synthroid -] 25 mcg PO DAILY 11/25/17 Naproxen 500 mg PO TID 11/25/17 Pantoprazole Sodium [Protonix -] 20 mg PO DAILY 11/25/17 Risperidone 1 mg PO BID 11/25/17 Solifenacin Succinate [Vesicare -] 10 mg PO DAILY 11/25/17 Tiotropium [place] [Spiriva] 2.5 mcg IH DAILY 11/25/17 Review of Systems - Review of Systems Able to Perform ROS?: Yes Comments:: 11/25/17 13:51 General: admit to fever, chills, generalized weakness. HEENT: admits to sore throat, rhinorrhea. denies ear pain. Heart: denies chest pain, palpitations, syncope, lower extremity swelling, diaphoresis. Chest: admits to anterior rib pain. Respiratory: admits to shortness of breath, cough. denies sputum production, hemoptysis. Abdomen: denies abdominal pain, nausea, vomiting, diarrhea, constipation, blood in stool. : denies dysuria, increased urinary frequency, hematuria, urinary incontinence , flank pain. Back: denies back pain. Musculoskeletal: denies joint pain, muscle pain, joint swelling. Neurological: denies headache, dizziness, numbness, tingling, weakness. Skin: denies rash, laceration, abrasion. <Patrica Davies - Last Filed: 11/25/17 23:45> *Physical Exam - Vital Signs Last Vital Signs Temp Pulse Resp BP Pulse Ox 100.6 F H 104 H 18 129/63 94 L 11/25/17 14:53 11/25/17 13:28 11/25/17 13:28 11/25/17 13:28 11/25/17 13:28 <Christian Neal - Last Filed: 11/25/17 17:04> - Physical Exam Comments: 11/25/17 13:52 Constitutional: Well-nourished, Well-developed, appearing stated age. HEENT: head is normocephalic, atraumatic. EOMI. PERRLA. oral mucosa appears dry. no posterior pharyngeal erythema. no tonsillar swelling. no tonsillar exudates. uvula midline. Neck: supple. Full ROM. Heart: regular rhythm. no murmurs, rubs or gallops. Lungs: crankles to right posterior base. no wheezing. no stridor. Abdomen: soft, nontender. normal bowel sounds. no rebound, guarding, masses. Extremities: Peripheral pulses intact and equal. No lower extremity edema. Neurological: CN 2-12 grossly intact. Moves all four extremities. Psych: awake, alert, oriented x3. Follows commands. Answers questions appropriately. <KekeDenissePatrica - Last Filed: 11/25/17 23:45> ED Treatment Course - LABORATORY CBC & Chemistry Diagram: 11/25/17 14:30 11/25/17 14:30 - ADDITIONAL ORDERS Additional order review: Laboratory Results 11/25/17 11/25/17 11/25/17 15:00 14:30 14:30 PT with INR INR PTT (Actin FS) VBG pH 7.39 POC VBG pCO2 35.2 L POC VBG pO2 50.3 H Mixed VBG HCO3 20.7 Sodium 137 Potassium 4.1 Chloride 106 Carbon Dioxide 21 Anion Gap 10 BUN 12 Creatinine 1.1 Creat Clearance w eGFR 48.96 Random Glucose 173 H Lactic Acid 0.9 Calcium 8.3 L Total Bilirubin 1.0 AST 56 H ALT 94 H Alkaline Phosphatase 271 H Creatine Kinase Creatine Kinase Index CK-MB (CK-2) Troponin I Total Protein 5.9 L Albumin 2.6 L 11/25/17 11/25/17 14:30 14:05 PT with INR 16.00 H INR 1.35 H PTT (Actin FS) 31.8 VBG pH POC VBG pCO2 POC VBG pO2 Mixed VBG HCO3 Sodium Potassium Chloride Carbon Dioxide Anion Gap BUN Creatinine Creat Clearance w eGFR Random Glucose Lactic Acid Calcium Total Bilirubin AST ALT Alkaline Phosphatase Creatine Kinase 360 H Creatine Kinase Index 0.8 CK-MB (CK-2) 3.2 Troponin I < 0.02 Total Protein Albumin 11/25/17 14:30 RBC 3.46 L MCV 94.5 MCHC 33.7 RDW 14.5 MPV 7.6 Neutrophils % 78.3 Lymphocytes % 14.5 Monocytes % 4.7 Eosinophils % 2.1 Basophils % 0.4 - Medications Given in the ED: ED Medications Discontinued Medications Generic Name Dose Route Start Last Admin Trade Name Freq PRN Reason Stop Dose Admin Acetaminophen 1,000 mg 11/25/17 13:47 11/25/17 14:21 Ofirmev Injection - IVPB 11/25/17 13:48 1,000 mg ONCE ONE Administration Albuterol/Ipratropium 1 amp 11/25/17 14:15 11/25/17 14:59 Duoneb - NEB 11/25/17 15:01 1 amp Q15M NITESH Administration Sodium Chloride 1,000 mls @ 1,000 mls/hr 11/25/17 13:47 11/25/17 14:21 Normal Saline - IV 11/25/17 14:46 1,000 mls/hr ASDIR STA Administration Methylprednisolone Sodium Succinate 60 mg 11/25/17 14:20 11/25/17 14:50 Solu-Medrol - IVPUSH 11/25/17 14:21 60 mg ONCE ONE Administration <Christian Neal - Last Filed: 11/25/17 17:04> - LABORATORY CBC & Chemistry Diagram: 11/25/17 14:30 11/25/17 14:30 <Patrica Davies - Last Filed: 11/25/17 23:45> Medical Decision Making - Medical Decision Making 11/25/17 14:02 72 year old female with PMH COPD, DVT, anemia, HLD, hypothyroidism, CAD, diverticulitis, bipolar disorder BIBA from [facility] to ED for cough x1 week associated with fever, runny nose, sore throat, shortness of breath. Initial Vital Signs Temp Pulse Resp BP Pulse Ox 98.7 F 104 H 18 129/63 94 L 11/25/17 13:28 11/25/17 13:28 11/25/17 13:28 11/25/17 13:28 11/25/17 13:28 Afebrile. Tachycardic at 104. - Pending EKG - IV fluids ordered No tachypnea. No hypotension. Hypoxia on 2L RA. - Increased to 3.5L, now satting 96% on 3.5L. Tylenol ordered for anterior rib pain. Fluids ordered for dehydration. Duonebs ordered for SOB, Hx COPD. Solumedrol ordered for suspected COPD exacerbation. Levaquin ordered for suspected COPD exacerbation. Concern for ACS/arryhthmia. - Pending EKG, cardiac enzymes Concern for pneumonia/COPD exacerbation/CHF - Pending CBC, BNP, CXR Concern for SIRS - tachycardic, dry mucous membranes - Pending CBC, CMP, lactate Concern for PE - Hx DVT, tachycardic WELLs = 3.5 EKG performed at 1429 - rate 99, regular rhythm, normal axis, normal intervals, lateral T-wave flattening. Similar to prior on 06/16/17. 11/25/17 15:05 Pt reassessed, satting 96% on 2L. She is receiving duoneb therapy, and reports it is improving her SOB. 11/25/17 15:46 CBC WBC 10.2 K/mm3 (4.0-10.0) H 11/25/17 14:30 RBC 3.46 M/mm3 (3.60-5.2) L 11/25/17 14:30 Hgb 11.0 GM/dL (10.7-15.3) 11/25/17 14:30 Hct 32.7 % (32.4-45.2) 11/25/17 14:30 MCV 94.5 fl (80-96) 11/25/17 14:30 MCH 31.8 pg (25.7-33.7) 11/25/17 14:30 MCHC 33.7 g/dl (32.0-36.0) 11/25/17 14:30 RDW 14.5 % (11.6-15.6) 11/25/17 14:30 Plt Count 281 K/MM3 (134-434) 11/25/17 14:30 MPV 7.6 fl (7.5-11.1) 11/25/17 14:30 Absolute Neuts (auto) 8.0 K/mm3 (1.5-8.0) 11/25/17 14:30 Neutrophils % 78.3 % (42.8-82.8) 11/25/17 14:30 Lymphocytes % 14.5 % (8-40) 11/25/17 14:30 Monocytes % 4.7 % (3.8-10.2) 11/25/17 14:30 Eosinophils % 2.1 % (0-4.5) 11/25/17 14:30 Basophils % 0.4 % (0-2.0) 11/25/17 14:30 Nucleated RBC % 0 % (0-0) 11/25/17 14:30 Mild Leukocytosis without a left shift. No anemia. No thrombocytopenia. CMP Sodium 137 mmol/L (136-145) 11/25/17 14:30 Potassium 4.1 mmol/L (3.5-5.1) 11/25/17 14:30 Chloride 106 mmol/L (98-107) 11/25/17 14:30 Carbon Dioxide 21 mmol/L (21-32) 11/25/17 14:30 Anion Gap 10 MMOL/L (8-16) 11/25/17 14:30 BUN 12 mg/dL (7-18) 11/25/17 14:30 Creatinine 1.1 mg/dL (0.55-1.3) 11/25/17 14:30 Creat Clearance w eGFR 48.96 (>60) 11/25/17 14:30 Random Glucose 173 mg/dL (74-106) H 11/25/17 14:30 Lactic Acid 0.9 mmol/L (0.4-2.0) 11/25/17 15:00 Calcium 8.3 mg/dL (8.5-10.1) L 11/25/17 14:30 Total Bilirubin 1.0 mg/dL (0.2-1) 11/25/17 14:30 AST 56 U/L (15-37) H 11/25/17 14:30 ALT 94 U/L (13-61) H 11/25/17 14:30 Alkaline Phosphatase 271 U/L (45-117) H 11/25/17 14:30 Creatine Kinase 360 IU/L (26-192) H 11/25/17 14:05 Troponin I < 0.02 ng/ml (0.00-0.05) 11/25/17 14:05 Total Protein 5.9 g/dl (6.4-8.2) L 11/25/17 14:30 Albumin 2.6 g/dl (3.4-5.0) L 11/25/17 14:30 No electrolyte abnormalities. No acute kidney injury. Hyperglycemia. Transaminitis. Elevated CK. Normal troponin. 11/25/17 16:07 I discussed the case with resident collision repairer, who requested 2g Magnesium and flu swab. Pt will be admitted to Dr. Chao's service. - Pending Mg and flu swab Vital Signs Temperature 100.6 F H 11/25/17 14:53 Pulse Rate 104 H 11/25/17 13:28 Respiratory Rate 18 11/25/17 13:28 Blood Pressure 129/63 11/25/17 13:28 O2 Sat by Pulse Oximetry (%) 94 L 11/25/17 13:28 Rectal temperature reveals fever of 100.6F - Pt is receiving Tylenol and IV fluids 11/25/17 18:11 CXR report - increased density at the lung bases suspicious for consolidation/ atelectasis and possibly small pleural effusions. <Patrica Davies - Last Filed: 11/25/17 23:45> *DC/Admit/Observation/Transfer <Christian Neal - Last Filed: 11/25/17 17:04> - Discharge Dispostion Decision to Admit order: Yes <Patrica Davies - Last Filed: 11/25/17 23:45> Diagnosis at time of Disposition: COPD exacerbation - Discharge Dispostion Condition at time of disposition: Stable
[2017-11-25] MEDS ORDERED: ACETAMINOPHEN 1000 MG/100 ML VIAL (NON FORMULARY) IVPB ONE (13:47)
[2017-11-25] MEDS ORDERED: SODIUM CHLORIDE 1,000 ML IV STA (13:47)
[2017-11-25] MEDS ORDERED: ACETAMINOPHEN INJECTION 100 ML IVPB ONE (13:59)
[2017-11-25] MEDS ORDERED: methylPREDNISolone NA SUCC 40 MG/1 ML VIAL IVPUSH ONE (14:20)
[2017-11-25] MEDS ORDERED: ALBUTEROL SO4 2.5/IPRATROPIUM 0.5 INH SOL 3 ML VIAL.NEB. NEB ONE ×2 (14:23→14:49)
[2017-11-25] MEDS: ALBUTEROL SO4 2.5/IPRATROPIUM 0.5 INH SOL 3 ML VIAL.NEB. NEB SCH ×4 (14:24→14:59)
--- NOTE | 2017-11-25 14:25 | PDOC ---
Attending Attestation - HPI HPI: This patient is a 72 year old female, with PMHx of COPD, DVT, who presents to ED for multiple complaints including non productive cough, shortness of breath, fever of 102 at home for 1 week. Patient also reports runny nose, and sore throat. She denies nausea, diarrhea, abdominal pain, weakness, numbness, tingling, chest pain, palpitations, lower extremity swelling, dysuria. Allergies - morphine, penicillin - Physicial Exam PE: GENERAL: Awake, alert, and fully oriented, in no acute distress HEAD: No signs of trauma EYES: PERRLA, EOMI, sclera anicteric, conjunctiva clear ENT: Auricles normal inspection, hearing grossly normal, nares patent, oropharynx clear without exudates. Dry mucosa NECK: Normal ROM, supple, no lymphadenopathy, JVD, or masses LUNGS: Upper diminished lung sounds. On 2nd neb on exam 92% pulse ox. Wheezes bilaterally, no crackles HEART: Regular rate and rhythm, normal S1 and S2, no murmurs, rubs or gallops ABDOMEN: Soft, nontender, normoactive bowel sounds. No guarding, no rebound. No masses EXTREMITIES: Normal range of motion, trace pitting edema bilaterally. No clubbing or cyanosis. No cords, erythema, or tenderness NEUROLOGICAL: Cranial nerves II through XII grossly intact. Normal speech. SKIN: Warm, Dry, normal turgor, no rashes or lesions noted. <Echo Claudio - Last Filed: 11/25/17 14:56> - Resident Resident Name: Patrica Davies - ED Attending Attestation I have performed the following: I have examined & evaluated the patient, The case was reviewed & discussed with the resident, I agree w/resident's findings & plan, Exceptions are as noted - Medical Decision Making 11/25/17 14:25 I, Dr. Shi Stephens, DO, attest that this document has been prepared under my direction and personally reviewed by me in its entirety. I further attest, that it accurately reflects all work, treatment, procedures and medical decision -making performed by me. 11/25/17 14:49 a/p: 72yo female with wheezing, sob, and cough -pt with hx of COPD -on home steroids -pt with wheezing, diminished bs b/l bases -nausea -subjective fevers at home -will start nebs, steroids, labs, cxr, ekg -will monitor -most likely copd exacerbation 11/25/17 15:58 pt with a copd exacerbation will start levaquin will place in obs for COPD exacerbation 11/25/17 16:08 resident discussed the case with BOAZDIAZ resident who accepts pt to service <Shi Stephens - Last Filed: 11/25/17 16:08> Heart Score/ECG Review - ECG Intrepretation Comment:: 11/25/17 14:50 sinus at 99, nl axis, nl interval, q waves septally that are age indeterminate, no acute st/t wave findings <Shi Stephens - Last Filed: 11/25/17 16:08>
[2017-11-25] MEDS ORDERED: methylPREDNISolone NA SUCC 125 MG/2 ML VIAL ONE (14:49)
--- NOTE | 2017-11-25 15:02 | EKG ---
Test Reason : Blood Pressure : / mmHG Vent. Rate : 099 BPM Atrial Rate : 099 BPM P-R Int : 164 ms QRS Dur : 084 ms QT Int : 364 ms P-R-T Axes : 032 -05 066 degrees QTc Int : 467 ms NORMAL SINUS RHYTHM SEPTAL INFARCT (CITED ON OR BEFORE 23-APR-2017) ABNORMAL ECG WHEN COMPARED WITH ECG OF 16-JUN-2017 09:41, NO SIGNIFICANT CHANGE WAS FOUND Confirmed by OG LARA MD ([id number]) on 11/25/2017 3:02:02 PM Referred By: Confirmed By:OG LARA MD
[2017-11-25 15:20] LABS: BASO % 0.4 % (0-2.0); EOS % 2.1 % (0-4.5); HEMATOCRIT 32.7 % (32.4-45.2); LYMPH % 14.5 % (8-40); MCH 31.8 pg (25.7-33.7); MCHC 33.7 g/dl (32.0-36.0); MEAN CELL VOLUME 94.5 fl (80-96); MEAN PLT VOLUME 7.6 fl (7.5-11.1); MONO % 4.7 % (3.8-10.2); NEUT % 78.3 % (42.8-82.8); PLATELET COUNT 281 K/MM3 (134-434); RBC 3.46 M/mm3 (3.60-5.2); RDW 14.5 % (11.6-15.6); WHITE BLOOD COUNT 10.2 K/mm3 (4.0-10.0)
[2017-11-25 15:21] LABS: VENOUS PC02 35.2 mmHg (38-52); VENOUS PH 7.39 (7.32-7.42); VENOUS PO2 50.3 mmHg (28-48)
[2017-11-25 15:47] LABS: ALBUMIN 2.6 g/dl (3.4-5.0); ALK PHOS 271 U/L (45-117); ANION GAP 10 MMOL/L (8-16); BLOOD UREA NITROGEN 12 mg/dL (7-18); CALCIUM 8.3 mg/dL (8.5-10.1); CHLORIDE 106 mmol/L (98-107); CO2 21 mmol/L (21-32); CREATININE 1.1 mg/dL (0.55-1.3); GLUCOSE,RANDOM 173 mg/dL (74-106); POTASSIUM 4.1 mmol/L (3.5-5.1); SGOT/AST 56 U/L (15-37); SGPT/ALT 94 U/L (13-61); SODIUM 137 mmol/L (136-145); TOT PROT 5.9 g/dl (6.4-8.2)
[2017-11-25 15:58] LABS: INR 1.35 (0.83-1.09)
[2017-11-25 16:01] LABS: ACTIVATED PTT 31.8 SECONDS (25.2-36.5)
[2017-11-25] MEDS ORDERED: MAGNESIUM SULF 50% (8.12 MEQ/2 ML-1 GM VIAL) IVPB ONE (16:06)
[2017-11-25] MEDS ORDERED: MAGNESIUM 1GM/D5W - 2 GM/200 ML IVPB IVPB ONE (17:10)
--- NOTE | 2017-11-25 17:20 | HP ---
CHIEF COMPLAINT: shortness of breath PCP:Dr. Maldonado HISTORY OF PRESENT ILLNESS: Patient is a 72 year old female with past medical history of COPD, DVT, GERD, urinary incontinence, HTN, HLD, Bipolar disorder, and Hypothyroidism, presented with nonproductive cough and worsening shortness of breath since 1 week ago. Patient reported that she started coughing 1 week ago and had intermittent episodes of dyspnea. She had nebulization and inhalers, that provided temporary relief. Today, upon waking, patient noted worsening of dyspnea, not relieved anymore by nebulizers. She was also noted to have fever of 102 at the assisted living facility. Patient also complains of midaxillary pain bilaterally, worsened with breathing. She was then brought to the ED. Patient denies chest pain, palpitations, abdominal pain, urinary symptoms. No weakness, headaches, dizziness, nausea, vomiting. ER course was notable for: (1)solumedrol, duonebs (2)levaquin 750mg (3)IVF (4)Mg 2g Recent Travel:denies any recent travel PAST MEDICAL HISTORY: COPD DVT GERD urinary incontinence HTN HLD Bipolar disorder Hypothyroidism PAST SURGICAL HISTORY: Social History: Smoking:denies Alcohol:denies Drugs: denies Lives in an assisted living facility. Has 2 children. Family History: noncontributory Allergies morphine Allergy (Unknown, Verified 11/25/17 13:28) Penicillins Allergy (Unknown, Verified 11/25/17 13:28) chocolate Allergy (Unknown, Uncoded 11/25/17 13:28) HOME MEDICATIONS: Home Medications Medication Instructions Recorded Albuterol Sulfate Inhaler - 1 puff IH TID 11/25/17 [Ventolin Hfa Inhaler -] Alendronate Sodium/Vitamin D3 1 each PO WEEKLY 11/25/17 [Fosamax Plus D 70 mg-5,600 Iu] Aripiprazole [Abilify] 5 mg PO DAILY 11/25/17 Aspirin 81 mg PO DAILY 11/25/17 Atorvastatin Ca [Lipitor] 20 mg PO HS 11/25/17 Budesonide [Pulmicort Flexhaler] 180 mcg IH BID 11/25/17 Clopidogrel Bisulfate [Plavix] 75 mg PO DAILY 11/25/17 Cyclobenzaprine HCl [Flexeril -] 5 mg PO TID 11/25/17 Ferrous Sulfate [Feosol] 325 mg PO DAILY 11/25/17 Levothyroxine [Synthroid -] 25 mcg PO DAILY 11/25/17 Naproxen 500 mg PO TID 11/25/17 Pantoprazole Sodium [Protonix -] 20 mg PO DAILY 11/25/17 Risperidone 1 mg PO BID 11/25/17 Solifenacin Succinate [Vesicare -] 10 mg PO DAILY 11/25/17 Tiotropium [place] [Spiriva] 2.5 mcg IH DAILY 11/25/17 REVIEW OF SYSTEMS CONSTITUTIONAL: fever Absent: chills, diaphoresis, generalized weakness, malaise, loss of appetite, weight change HEENT: throat pain Absent: rhinorrhea, nasal congestion, throat swelling, difficulty swallowing, mouth swelling, ear pain, eye pain, visual changes CARDIOVASCULAR: Absent: chest pain, syncope, palpitations, irregular heart rate, lightheadedness , peripheral edema RESPIRATORY: cough, shortness of breath Absent: dyspnea with exertion, orthopnea, wheezing, stridor, hemoptysis GASTROINTESTINAL: Absent: abdominal pain, abdominal distension, nausea, vomiting, diarrhea, constipation, melena, hematochezia GENITOURINARY: Absent: dysuria, frequency, urgency, hesitancy, hematuria, flank pain, genital pain MUSCULOSKELETAL: midaxillary pain on both sides Absent: myalgia, arthralgia, joint swelling, back pain, neck pain SKIN: Absent: rash, itching, pallor HEMATOLOGIC/IMMUNOLOGIC: Absent: easy bleeding, easy bruising, lymphadenopathy, frequent infections ENDOCRINE: Absent: unexplained weight gain, unexplained weight loss, heat intolerance, cold intolerance NEUROLOGIC: Absent: headache, focal weakness or paresthesias, dizziness, unsteady gait, seizure, mental status changes, bladder or bowel incontinence PSYCHIATRIC: Absent: anxiety, depression, suicidal or homicidal ideation, hallucinations. PHYSICAL EXAMINATION Vital Signs - 24 hr 11/25/17 11/25/17 13:28 14:53 Temperature 98.7 F 100.6 F H Pulse Rate 104 H Respiratory 18 Rate Blood Pressure 129/63 O2 Sat by Pulse 94 L Oximetry (%) GENERAL: Awake, alert, and fully oriented, in no acute distress. HEAD: Normal with no signs of trauma. EYES: PERRLA, EOMI, sclera anicteric, conjunctiva clear. EARS, NOSE, THROAT: Ears normal, nares patent, oropharynx clear without exudates. Dry mucous membranes. NECK: Normal range of motion, supple without lymphadenopathy, JVD, or masses. LUNGS: Diminished breath sounds, R>L, no wheezing, no crackles HEART: Regular rate and rhythm, normal S1 and S2 without murmur, rub or gallop. ABDOMEN: Soft, nontender, not distended, normoactive bowel sounds. MUSCULOSKELETAL: Normal range of motion at all joints. No CVA tenderness. + tenderness on midaxillary area, bilaterally UPPER EXTREMITIES: 2+ pulses, warm, well-perfused. No cyanosis. No clubbing. No peripheral edema. LOWER EXTREMITIES: 2+ pulses, warm, well-perfused. No calf tenderness. No peripheral edema. NEUROLOGICAL: Cranial nerves II-XII intact. Normal speech. Normal gait. PSYCHIATRIC: Cooperative. Good eye contact. Appropriate mood and affect. SKIN: Warm, dry, normal turgor, no rashes or lesions noted, normal capillary refill. Laboratory Results - last 24 hr 11/25/17 11/25/17 11/25/17 14:05 14:30 14:30 WBC 10.2 H RBC 3.46 L Hgb 11.0 Hct 32.7 MCV 94.5 MCH 31.8 MCHC 33.7 RDW 14.5 Plt Count 281 MPV 7.6 Absolute Neuts (auto) 8.0 Neutrophils % 78.3 Lymphocytes % 14.5 Monocytes % 4.7 Eosinophils % 2.1 Basophils % 0.4 Nucleated RBC % 0 PT with INR 16.00 H INR 1.35 H PTT (Actin FS) 31.8 VBG pH POC VBG pCO2 POC VBG pO2 Mixed VBG HCO3 Sodium Potassium Chloride Carbon Dioxide Anion Gap BUN Creatinine Creat Clearance w eGFR Random Glucose Lactic Acid Calcium Total Bilirubin AST ALT Alkaline Phosphatase Creatine Kinase 360 H Creatine Kinase Index 0.8 CK-MB (CK-2) 3.2 Troponin I < 0.02 Total Protein Albumin 11/25/17 11/25/17 11/25/17 14:30 14:30 15:00 WBC RBC Hgb Hct MCV MCH MCHC RDW Plt Count MPV Absolute Neuts (auto) Neutrophils % Lymphocytes % Monocytes % Eosinophils % Basophils % Nucleated RBC % PT with INR INR PTT (Actin FS) VBG pH 7.39 POC VBG pCO2 35.2 L POC VBG pO2 50.3 H Mixed VBG HCO3 20.7 Sodium 137 Potassium 4.1 Chloride 106 Carbon Dioxide 21 Anion Gap 10 BUN 12 Creatinine 1.1 Creat Clearance w eGFR 48.96 Random Glucose 173 H Lactic Acid 0.9 Calcium 8.3 L Total Bilirubin 1.0 AST 56 H ALT 94 H Alkaline Phosphatase 271 H Creatine Kinase Creatine Kinase Index CK-MB (CK-2) Troponin I Total Protein 5.9 L Albumin 2.6 L ASSESSMENT/PLAN: Patient is a 72 year old female with past medical history of COPD, DVT, GERD, urinary incontinence, HTN, HLD, Bipolar disorder, and Hypothyroidism, presented with nonproductive cough and worsening shortness of breath for a week. #Sepsis likely 2/2 Healthcare acquired pneumonia -Temp 100.6, MT 104 -Start Levaquin 750 mg daily, first dose given at the ED -Blood cultures, flu swab pending -IV NS @ 50ml/hr -Tylenol 650mg PRN for fever. #Transaminitis -likely 2/2 sepsis vs statin -Hepatitis panel ordered #COPD -not in acute exacerbation; no wheezing. -Solumedrol given at the ED. -Will continue to monitor for now. -Continue home medications as needed #CAD -continue home ASA, Plavix -Hold atorvastatin for now #Hypertension -continue to monitor BP #Hyperlipidemia -Continue Atoravastatin 20mg daily #Bipolar disorder -Continue home medications #Hypothyroidism -Continue Synthroid 25mcg daily #FEN -Not on any standing fluids -Electrolytes wnl, routine bmp monitoring -Sodium restricted diet #Prophylaxis -Lovenox 40mg daily #Disposition -admit to obs Visit type - Emergency Visit Emergency Visit: Yes ED Registration Date: 11/25/17 Care time: The patient presented to the Emergency Department on the above date and was hospitalized for further evaluation of their emergent condition. - New Patient This patient is new to me today: Yes Date on this admission: 11/26/17 - Critical Care Critical Care patient: No
[2017-11-25] MEDS ORDERED: SODIUM CHLORIDE 1,000 ML IV SCH (18:00)
[2017-11-25] MEDS ORDERED: HEPARIN NA (PORCINE) 5,000 UNITS/ML 1ML VIAL SQ SCH (18:00)
[2017-11-25] MEDS ORDERED: ACETAMINOPHEN 325 MG TABLET (FP) PO PRN (18:03)
--- NOTE | 2017-11-25 18:06 | PN ---
Teaching Attending Note Name of Resident: Criselda Daniels ATTENDING PHYSICIAN STATEMENT I saw and evaluated the patient. I reviewed the resident's note and discussed the case with the resident. I agree with the resident's findings and plan as documented. SUBJECTIVE:72yo F wtih PMH COPD, DVT not on a/c, CAD, bipolar/shizophrenia sent from [facility] assisted living for non productive cough x1 week. Assoc with positional CP. endorses chills, diffuse body aches, and fevers (highest fever she states was 100.1). states there are other residents also currently sick. denies N/V/C/D, recent travel, abx use OBJECTIVE: Last Vital Signs Temp Pulse Resp BP Pulse Ox 100.6 F H 83 24 H 138/59 L 95 11/25/17 14:53 11/25/17 17:15 11/25/17 17:15 11/25/17 17:15 11/25/17 17:15 General pale, fatigued CV S1 S2 RRR no murmur/rub/gallop Lungs decreased breath sounds B/L bases. poor inspiratory effort Abdomen soft NT/ND obese ASSESSMENT AND PLAN: 72yo F wtih PMH COPD, DVT not on a/c, CAD, bipolar/shizophrenia sent from [facility] assisted living for non productive cough x1 week 1. Sepsis due to PNA- Tm 100.6 with tachycardia. start levaquin and IVF. PCN allergy noted. will check flu swab. f/u cx. 2.Transaminitis- possible due to infection vs statin therapy. check hepatitis panel. unclear if patient has been taking excessive tylenol. 3. COPD- no signs of acute exacerbation. received solumedrol in the ER. will hold for now 4. DVT not on a/x 5. CAD- no signs of ACS. resume home medication 6. DVT ppx- lovenox
[2017-11-25] MEDS ORDERED: ACETAMINOPHEN 325 MG TABLET (FP) PO ONE (18:12)
[2017-11-25] MEDS ORDERED: ACETAMINOPHEN 325 MG TABLET (FP) ONE (18:29)
[2017-11-25 20:28] LABS: ANISOCYTOSIS 1+; MACROCYTOSIS 1+; PLATELET ESTIMATE ADEQUATE
[2017-11-26 07:37] LABS: BASO % 0.2 % (0-2.0); HEMATOCRIT 32.7 % (32.4-45.2); HEMOGLOBIN 10.8 GM/dL (10.7-15.3); LYMPH % 7.9 % (8-40); MCH 31.5 pg (25.7-33.7); MCHC 33.1 g/dl (32.0-36.0); MEAN CELL VOLUME 95.2 fl (80-96); MEAN PLT VOLUME 7.7 fl (7.5-11.1); MONO % 2.6 % (3.8-10.2); NEUT % 89.3 % (42.8-82.8); PLATELET COUNT 283 K/MM3 (134-434); RBC 3.43 M/mm3 (3.60-5.2); RDW 14.9 % (11.6-15.6); WHITE BLOOD COUNT 10.6 K/mm3 (4.0-10.0)
[2017-11-26 07:43] LABS: ALBUMIN 2.2 g/dl (3.4-5.0); ALK PHOS 260 U/L (45-117); ANION GAP 7 MMOL/L (8-16); BILIRUBIN,TOTAL 0.8 mg/dL (0.2-1); BLOOD UREA NITROGEN 14 mg/dL (7-18); CALCIUM 8.1 mg/dL (8.5-10.1); CHLORIDE 110 mmol/L (98-107); CO2 19 mmol/L (21-32); CREATININE 0.9 mg/dL (0.55-1.3); GLUCOSE,RANDOM 253 mg/dL (74-106); MAGNESIUM 2.7 mg/dL (1.8-2.4); PHOSPHOROUS 2.2 mg/dL (2.5-4.9); POTASSIUM 4.7 mmol/L (3.5-5.1); SGOT/AST 29 U/L (15-37); SGPT/ALT 75 U/L (13-61); SODIUM 136 mmol/L (136-145); TOT PROT 5.5 g/dl (6.4-8.2)
[2017-11-26] MEDS ORDERED: PATIENT'S OWN MEDICATION (NON-FORMULARY) (Alendronate Sodium/Vitamin D3 [Fosamax Plus D 70 PO SCH (08:45)
[2017-11-26] MEDS ORDERED: TIOTROPIUM BROMIDE 2.5 MCG (SPIRIVA) RESPIMAT INHALER IH SCH (10:00)
[2017-11-26] MEDS ORDERED: PT OWN MED DRAWER 7, Y5N ONE ×4 (10:38→14:23)
[2017-11-26] MEDS: PANTOPRAZOLE 20 MG TABLET (FP) PO SCH (10:52)
[2017-11-26] MEDS: LEVOTHYROXINE NA 25 MCG TABLET (FP) PO SCH (10:52)
[2017-11-26] MEDS: ASPIRIN 81 MG CHEWABLE TABLETS PO SCH (10:52)
[2017-11-26] MEDS: risperiDONE 1 MG TABLET (FP) PO SCH ×2 (10:52→22:34)
[2017-11-26] MEDS: FERROUS SO4 325 MG TABLET (FP) PO SCH (10:52)
[2017-11-26] MEDS: CLOPIDOGREL BISULFATE 75 MG TABLET (FP) PO SCH (10:52)
[2017-11-26] MEDS: SOLIFENACIN SUCCINATE 5 MG TAB (FP) PO SCH (10:53)
[2017-11-26] MEDS: ENOXAPARIN NA (PORCINE) 40 MG/0.4 ML DISP.SYRIN SQ SCH (10:53)
[2017-11-26] MEDS: ARIPiprazole 5 MG TABLET (FP) PO SCH (10:54)
[2017-11-26 11:09] LABS: ANISOCYTOSIS 1+; MACROCYTOSIS 1+; PLATELET ESTIMATE NORMAL
[2017-11-26] MEDS ORDERED: ALBUTEROL SO4 8 GM HFA INHALER IH PRN (14:00)
[2017-11-26] MEDS: CYCLOBENZAPRINE HCL 10 MG TABLET (FP) PO SCH ×2 (14:32→22:34)
[2017-11-26] MEDS: ALBUTEROL SO4 2.5/IPRATROPIUM 0.5 INH SOL 3 ML VIAL.NEB. NEB SCH ×2 (16:43→21:18)
--- NOTE | 2017-11-26 17:01 | PN ---
Physical Exam: SUBJECTIVE: Patient seen and examined at bedside this morning. No acute events overnight. Patient still reports shortness of breath and "not feeling well". OBJECTIVE: Vital Signs Period Temp Pulse Resp BP Sys/Lin Pulse Ox Last 24 Hr 97.7 F-98.6 F 72-90 18-24 120-138/55-82 94-95 GENERAL: Awake, alert, and fully oriented, in no acute distress. HEAD: Normal with no signs of trauma. EYES: PERRLA, EOMI, sclera anicteric, conjunctiva clear. EARS, NOSE, THROAT: Ears normal, nares patent, oropharynx clear without exudates. Dry mucous membranes. NECK: Normal range of motion, supple without lymphadenopathy, JVD, or masses. LUNGS: Diminished breath sounds at the lower bases, bilaterally, +rhonchi bilaterally, no wheezing, no crackles HEART: Regular rate and rhythm, normal S1 and S2 without murmur, rub or gallop. ABDOMEN: Soft, nontender, not distended, normoactive bowel sounds. MUSCULOSKELETAL: Normal range of motion at all joints. No CVA tenderness. + tenderness on midaxillary area, bilaterally UPPER EXTREMITIES: 2+ pulses, warm, well-perfused. No cyanosis. No clubbing. No peripheral edema. LOWER EXTREMITIES: 2+ pulses, warm, well-perfused. No calf tenderness. No peripheral edema. NEUROLOGICAL: Cranial nerves II-XII intact. Normal speech. Normal gait. PSYCHIATRIC: Cooperative. Good eye contact. Appropriate mood and affect. SKIN: Warm, dry, normal turgor, no rashes or lesions noted, normal capillary refill. Laboratory Results - last 24 hr 11/25/17 11/25/17 11/25/17 14:30 17:00 17:00 WBC RBC Hgb Hct MCV MCH MCHC RDW Plt Count MPV Absolute Neuts (auto) Total Counted 100 Neutrophils % Neutrophils % (Manual) 80.0 Band Neutrophils % Lymphocytes % Lymphocytes % (Manual) 15.0 D Monocytes % Monocytes % (Manual) 5 Eosinophils % Eosinophils % (Manual) Basophils % Basophils % (Manual) Myelocytes % (Man) Promyelocytes % (Man) Blast Cells % (Manual) Nucleated RBC % Metamyelocytes Hypochromia Platelet Estimate Adequate Platelet Comment No clumping noted Polychromasia Poikilocytosis Anisocytosis 1+ Microcytosis Macrocytosis 1+ Sodium Potassium Chloride Carbon Dioxide Anion Gap BUN Creatinine Creat Clearance w eGFR Random Glucose Hemoglobin A1c % Lactic Acid Calcium Phosphorus Magnesium Total Bilirubin AST ALT Alkaline Phosphatase Troponin I < 0.02 B-Natriuretic Peptide 360.7 H Total Protein Albumin 11/25/17 11/26/17 11/26/17 21:00 06:00 06:00 WBC 10.6 H RBC 3.43 L Hgb 10.8 Hct 32.7 MCV 95.2 MCH 31.5 MCHC 33.1 RDW 14.9 Plt Count 283 MPV 7.7 Absolute Neuts (auto) 9.4 H Total Counted Neutrophils % 89.3 H Neutrophils % (Manual) 89.2 H Band Neutrophils % 0.0 Lymphocytes % 7.9 L D Lymphocytes % (Manual) 4.5 L D Monocytes % 2.6 L Monocytes % (Manual) 4 Eosinophils % 0.0 D Eosinophils % (Manual) 0.0 D Basophils % 0.2 Basophils % (Manual) 0.0 Myelocytes % (Man) 1 D Promyelocytes % (Man) 0 Blast Cells % (Manual) 0 Nucleated RBC % 0 Metamyelocytes 2 D Hypochromia 0 Platelet Estimate Normal Platelet Comment Polychromasia 0 Poikilocytosis 0 Anisocytosis 1+ Microcytosis 0 Macrocytosis 1+ Sodium 136 Potassium 4.7 Chloride 110 H Carbon Dioxide 19 L Anion Gap 7 L BUN 14 Creatinine 0.9 Creat Clearance w eGFR > 60 Random Glucose 253 H Hemoglobin A1c % Lactic Acid 0.6 Calcium 8.1 L Phosphorus 2.2 L Magnesium 2.7 H Total Bilirubin 0.8 AST 29 ALT 75 H Alkaline Phosphatase 260 H Troponin I B-Natriuretic Peptide Total Protein 5.5 L Albumin 2.2 L 11/26/17 06:00 WBC RBC Hgb Hct MCV MCH MCHC RDW Plt Count MPV Absolute Neuts (auto) Total Counted Neutrophils % Neutrophils % (Manual) Band Neutrophils % Lymphocytes % Lymphocytes % (Manual) Monocytes % Monocytes % (Manual) Eosinophils % Eosinophils % (Manual) Basophils % Basophils % (Manual) Myelocytes % (Man) Promyelocytes % (Man) Blast Cells % (Manual) Nucleated RBC % Metamyelocytes Hypochromia Platelet Estimate Platelet Comment Polychromasia Poikilocytosis Anisocytosis Microcytosis Macrocytosis Sodium Potassium Chloride Carbon Dioxide Anion Gap BUN Creatinine Creat Clearance w eGFR Random Glucose Hemoglobin A1c % 6.8 H Lactic Acid Calcium Phosphorus Magnesium Total Bilirubin AST ALT Alkaline Phosphatase Troponin I B-Natriuretic Peptide Total Protein Albumin Active Medications Generic Name Dose Route Start Last Admin Trade Name Freq PRN Reason Stop Dose Admin Acetaminophen 650 mg 11/26/17 14:12 Tylenol - PO Q6H PRN FEVER Albuterol Sulfate 1 puff 11/26/17 14:00 Ventolin Hfa Inhaler - IH TID PRN SHORTNESS OF BREATH Albuterol/Ipratropium 1 amp 11/26/17 16:00 11/26/17 16:43 Duoneb - NEB 1 amp RTID NITESH Administration Aripiprazole 5 mg 11/26/17 10:00 11/26/17 10:54 Abilify PO 5 mg DAILY NITESH Administration Aspirin 81 mg 11/26/17 10:00 11/26/17 10:52 Asa - PO 81 mg DAILY NITESH Administration Clopidogrel Bisulfate 75 mg 11/26/17 10:00 11/26/17 10:52 Plavix - PO 75 mg DAILY NITESH Administration Cyclobenzaprine HCl 5 mg 11/26/17 14:00 11/26/17 14:32 Flexeril - PO 5 mg TID NITESH Administration Enoxaparin Sodium 40 mg 11/26/17 10:00 11/26/17 10:53 Lovenox - SQ 40 mg DAILY NITESH Administration Ferrous Sulfate 325 mg 11/26/17 10:00 11/26/17 10:52 Feosol - PO 325 mg DAILY NITESH Administration Levofloxacin 750 mg in 150 mls @ 100 mls/hr 11/26/17 10:00 11/26/17 10:53 Levaquin 750 Mg Premixed Ivpb - IVPB 100 mls/hr DAILY [facility] Administration Protocol Levothyroxine Sodium 25 mcg 11/26/17 10:00 11/26/17 10:52 Synthroid - PO 25 mcg DAILY@0700 [facility] Administration Non-Formulary Medication 180 mcg 11/26/17 10:00 Budesonide [Pulmicort Flexhaler] IH BID [facility] Pantoprazole Sodium 20 mg 11/26/17 10:00 11/26/17 10:52 Protonix - PO 20 mg DAILY NITESH Administration Risperidone 1 mg 11/26/17 10:00 11/26/17 10:52 Risperdal - PO 1 mg BID NITESH Administration Solifenacin 10 mg 11/26/17 10:00 11/26/17 10:53 Vesicare - PO 10 mg DAILY NITESH Administration ASSESSMENT/PLAN: Patient is a 72 year old female with past medical history of COPD, DVT, GERD, urinary incontinence, HTN, HLD, Bipolar disorder, and Hypothyroidism, presented with nonproductive cough and worsening shortness of breath for a week. #Sepsis likely 2/2 Healthcare acquired pneumonia -Temp 100.6, [place] 104 upon arrival at the ED -Start Levaquin 750 mg daily (day 2) -Blood cultures pending -Flu swab negative -IV NS @ 50ml/hr discontinued. -Tylenol 650mg PRN for fever. #Transaminitis: resolving -likely 2/2 sepsis vs statin -Hepatitis panel pending -Will hold Lipitor for now #COPD -Solumedrol given at the ED. -Will continue to monitor. -Duonebs q8h STA for now. -Continue home medications as needed #CAD -continue home ASA, Plavix -Hold atorvastatin for now #Hypertension -continue to monitor BP #Hyperlipidemia -Continue Atoravastatin 20mg daily #Bipolar disorder -Continue home medications #Hypothyroidism -Continue Synthroid 25mcg daily #FEN -Not on any standing fluids -Electrolytes wnl, routine bmp monitoring -Sodium restricted diet #Prophylaxis -Lovenox 40mg daily #Disposition -admit to obs Visit type - Emergency Visit Emergency Visit: Yes ED Registration Date: 11/25/17 Care time: The patient presented to the Emergency Department on the above date and was hospitalized for further evaluation of their emergent condition. - New Patient This patient is new to me today: Yes Date on this admission: 11/26/17 - Critical Care Critical Care patient: No
--- NOTE | 2017-11-26 18:03 | PN ---
Teaching Attending Note Name of Resident: Criselda Daniels ATTENDING PHYSICIAN STATEMENT I saw and evaluated the patient. I reviewed the resident's note and discussed the case with the resident. I agree with the resident's findings and plan as documented. SUBJECTIVE:c/o generalized weakness. continues to have non productive cough. denies CP, fever, chills, N/V/C/D OBJECTIVE: Last Vital Signs Temp Pulse Resp BP Pulse Ox 98.4 F 73 18 120/57 L 94 L 11/26/17 15:27 11/26/17 15:27 11/26/17 15:27 11/26/17 15:27 11/26/17 09:00 General NAD CV S1 S2 RRR no murmur/rub/gallop Lungs decreased breath sounds R base. poor inspiratory effort Abdomen soft NT/ND obese ASSESSMENT AND PLAN: 72yo F wtih PMH COPD, DVT not on a/c, CAD, bipolar/shizophrenia sent from [facility] for non productive cough x1 week 1. Sepsis due to PNA- Tm 100.6. not much improvement clinically. beti cont levaquin day 2. D/c IVF. PCN allergy noted. flu negative. 2.Transaminitis- possible due to infection vs statin therapy. now trending down. will cont to hold statin. consider re-starting on discharge. hepatitis panel pending 3. COPD- no signs of acute exacerbation. received solumedrol in the ER. will hold for now 4. DVT not on a/x 5. CAD- no signs of ACS. resume home medication 6. DVT ppx- lovenox
[2017-11-26] MEDS: ACETAMINOPHEN 325 MG TABLET (FP) PO PRN (20:38)
[2017-11-27] MEDS: CYCLOBENZAPRINE HCL 10 MG TABLET (FP) PO SCH ×3 (05:44→21:40)
[2017-11-27] MEDS: LEVOTHYROXINE NA 25 MCG TABLET (FP) PO SCH (06:44)
[2017-11-27 07:39] LABS: BASO % 0.4 % (0-2.0); HEMATOCRIT 32.4 % (32.4-45.2); HEMOGLOBIN 10.5 GM/dL (10.7-15.3); LYMPH % 19.6 % (8-40); MCH 31.1 pg (25.7-33.7); MCHC 32.5 g/dl (32.0-36.0); MEAN CELL VOLUME 95.8 fl (80-96); MEAN PLT VOLUME 7.5 fl (7.5-11.1); MONO % 5.1 % (3.8-10.2); NEUT % 72.9 % (42.8-82.8); PLATELET COUNT 301 K/MM3 (134-434); RBC 3.38 M/mm3 (3.60-5.2)
[2017-11-27] MEDS: ALBUTEROL SO4 2.5/IPRATROPIUM 0.5 INH SOL 3 ML VIAL.NEB. NEB SCH ×3 (07:39→20:36)
[2017-11-27] MEDS ORDERED: DOCUSATE SODIUM 100 MG CAPSULE (FP) PO PRN (08:11)
[2017-11-27 08:37] LABS: ALBUMIN 2.1 g/dl (3.4-5.0); ALK PHOS 254 U/L (45-117); ANION GAP 9 MMOL/L (8-16); BILIRUBIN,TOTAL 0.4 mg/dL (0.2-1); BLOOD UREA NITROGEN 24 mg/dL (7-18); CHLORIDE 109 mmol/L (98-107); CO2 21 mmol/L (21-32); GLUCOSE,RANDOM 127 mg/dL (74-106); MAGNESIUM 2.5 mg/dL (1.8-2.4); POTASSIUM 4.5 mmol/L (3.5-5.1); SGOT/AST 78 U/L (15-37); SGPT/ALT 109 U/L (13-61); SODIUM 139 mmol/L (136-145); TOT PROT 5.2 g/dl (6.4-8.2)
[2017-11-27] MEDS ORDERED: PT OWN MED DRAWER 7, Y5N ONE ×2 (10:20→10:49)
[2017-11-27] MEDS ORDERED: NAPH,MB-DB/K PH,MBDB POWDER PACKET PO ONE ×2 (10:25→15:00)
[2017-11-27] MEDS: risperiDONE 1 MG TABLET (FP) PO SCH (10:29)
[2017-11-27] MEDS: SOLIFENACIN SUCCINATE 5 MG TAB (FP) PO SCH (10:29)
[2017-11-27] MEDS: PANTOPRAZOLE 20 MG TABLET (FP) PO SCH (10:29)
[2017-11-27] MEDS: ASPIRIN 81 MG CHEWABLE TABLETS PO SCH (10:29)
[2017-11-27] MEDS: POLYETHYLENE GLYCOL 3350 119 GM BTL PO SCH (10:29)
[2017-11-27] MEDS: FERROUS SO4 325 MG TABLET (FP) PO SCH (10:29)
[2017-11-27] MEDS: CLOPIDOGREL BISULFATE 75 MG TABLET (FP) PO SCH (10:29)
[2017-11-27] MEDS: ARIPiprazole 5 MG TABLET (FP) PO SCH (10:30)
[2017-11-27] MEDS: ENOXAPARIN NA (PORCINE) 40 MG/0.4 ML DISP.SYRIN SQ SCH (10:30)
[2017-11-27 11:03] LABS: ANISOCYTOSIS 1+; MACROCYTOSIS 1+; PLATELET ESTIMATE NORMAL
--- NOTE | 2017-11-27 13:06 | PN ---
Physical Exam: SUBJECTIVE: Patient seen and examined at bedside this morning. No acute events overnight. Patient reports that she still feels sick and not feeling well. OBJECTIVE: Vital Signs Period Temp Pulse Resp BP Sys/Lin Pulse Ox Last 24 Hr 98.4 F-98.9 F 73-82 18-18 100-130/49-78 93-95 GENERAL: Awake, alert, and fully oriented, in no acute distress. HEAD: Normal with no signs of trauma. EYES: PERRLA, EOMI, sclera anicteric, conjunctiva clear. EARS, NOSE, THROAT: Ears normal, nares patent, oropharynx clear without exudates. Dry mucous membranes. NECK: Normal range of motion, supple without lymphadenopathy, JVD, or masses. LUNGS: Diminished breath sounds at the lower bases, bilaterally, +rhonchi bilaterally, no wheezing, no crackles HEART: Regular rate and rhythm, normal S1 and S2 without murmur, rub or gallop. ABDOMEN: Soft, nontender, not distended, normoactive bowel sounds. MUSCULOSKELETAL: Normal range of motion at all joints. No CVA tenderness. + tenderness on midaxillary area, bilaterally UPPER EXTREMITIES: 2+ pulses, warm, well-perfused. No cyanosis. No clubbing. No peripheral edema. LOWER EXTREMITIES: 2+ pulses, warm, well-perfused. No calf tenderness. No peripheral edema. NEUROLOGICAL: Cranial nerves II-XII intact. Normal speech. Normal gait. PSYCHIATRIC: Cooperative. Good eye contact. Appropriate mood and affect. SKIN: Warm, dry, normal turgor, no rashes or lesions noted, normal capillary refill. Laboratory Results - last 24 hr 11/27/17 11/27/17 06:30 06:30 WBC 13.0 H RBC 3.38 L Hgb 10.5 L Hct 32.4 MCV 95.8 MCH 31.1 MCHC 32.5 RDW 15.0 Plt Count 301 MPV 7.5 Absolute Neuts (auto) 9.4 H Neutrophils % 72.9 Neutrophils % (Manual) 69.0 Band Neutrophils % 0.0 Lymphocytes % 19.6 D Lymphocytes % (Manual) 18.0 D Monocytes % 5.1 D Monocytes % (Manual) 3 L Eosinophils % 2.0 D Eosinophils % (Manual) 4.0 D Basophils % 0.4 Basophils % (Manual) 1.0 D Myelocytes % (Man) 4 H D Promyelocytes % (Man) 0 Blast Cells % (Manual) 0 Nucleated RBC % 0 Metamyelocytes 1 D Hypochromia 0 Platelet Estimate Normal Polychromasia 0 Poikilocytosis 0 Anisocytosis 1+ Macrocytosis 1+ Sodium 139 Potassium 4.5 Chloride 109 H Carbon Dioxide 21 Anion Gap 9 BUN 24 H Creatinine 1.0 Creat Clearance w eGFR 54.66 Random Glucose 127 H Calcium 8.0 L Phosphorus 2.0 L Magnesium 2.5 H Total Bilirubin 0.4 AST 78 H ALT 109 H Alkaline Phosphatase 254 H Total Protein 5.2 L Albumin 2.1 L Active Medications Generic Name Dose Route Start Last Admin Trade Name Freq PRN Reason Stop Dose Admin Acetaminophen 650 mg 11/26/17 14:12 11/26/17 20:38 Tylenol - PO 650 mg Q6H PRN Administration FEVER Albuterol Sulfate 1 puff 11/26/17 14:00 Ventolin Hfa Inhaler - IH TID PRN SHORTNESS OF BREATH Albuterol/Ipratropium 1 amp 11/26/17 16:00 11/27/17 07:39 Duoneb - NEB 1 amp RTID NITESH Administration Aripiprazole 5 mg 11/26/17 10:00 11/27/17 10:30 Abilify PO 5 mg DAILY [facility] Administration Aspirin 81 mg 11/26/17 10:00 11/27/17 10:29 Asa - PO 81 mg DAILY NIT[facility] Administration Clopidogrel Bisulfate 75 mg 11/26/17 10:00 11/27/17 10:29 Plavix - PO 75 mg DAILY [facility] Administration Cyclobenzaprine HCl 5 mg 11/26/17 14:00 11/27/17 05:44 Flexeril - PO 5 mg TID NITESH Administration Docusate Sodium 100 mg 11/27/17 08:11 Colace - PO Q8H PRN CONSTIPATION Enoxaparin Sodium 40 mg 11/26/17 10:00 11/27/17 10:30 Lovenox - SQ 40 mg DAILY [facility] Administration Ferrous Sulfate 325 mg 11/26/17 10:00 11/27/17 10:29 Feosol - PO 325 mg DAILY [facility] Administration Guaifenesin 10 ml 11/27/17 08:12 Robitussin - PO Q8H PRN COUGH Levofloxacin 750 mg in 150 mls @ 100 mls/hr 11/26/17 10:00 10/19/18 10:29 Levaquin 750 Mg Premixed Ivpb - IVPB 100 mls/hr DAILY [facility] Administration Protocol Levothyroxine Sodium 25 mcg 11/26/17 10:00 11/27/17 06:44 Synthroid - PO 25 mcg DAILY@0700 [facility] Administration Non-Formulary Medication 180 mcg 11/26/17 10:00 Budesonide [Pulmicort Flexhaler] IH BID [facility] Pantoprazole Sodium 20 mg 11/26/17 10:00 11/27/17 10:29 Protonix - PO 20 mg DAILY [facility] Administration Polyethylene Glycol 17 gm 11/27/17 10:00 11/27/17 10:29 Miralax (For Daily Use) - PO 17 gm DAILY [facility] Administration Risperidone 1 mg 11/26/17 10:00 11/27/17 10:29 Risperdal - PO 1 mg BID NITESH Administration Solifenacin 10 mg 11/26/17 10:00 11/27/17 10:29 Vesicare - PO 10 mg DAILY [facility] Administration ASSESSMENT/PLAN: Patient is a 72 year old female with past medical history of COPD, DVT, GERD, urinary incontinence, HTN, HLD, Bipolar disorder, and Hypothyroidism, presented with nonproductive cough and worsening shortness of breath for a week. #Sepsis likely 2/2 Healthcare acquired pneumonia -Temp 100.6, [place] 104 upon arrival at the ED -Start Levaquin 750 mg daily (day 3) -Blood cultures pending -Flu swab negative -IV NS @ 50ml/hr discontinued. -Tylenol 650mg PRN for fever. #Transaminitis: resolving -likely 2/2 sepsis vs statin -Hepatitis panel pending -Will hold Lipitor for now #COPD -Solumedrol given at the ED. -Will continue to monitor. -Duonebs q8h STA for now. -Continue home medications as needed #CAD -continue home ASA, Plavix -Hold atorvastatin for now #Hypertension -continue to monitor BP #Hyperlipidemia -Continue Atoravastatin 20mg daily #Bipolar disorder -Continue home medications #Hypothyroidism -Continue Synthroid 25mcg daily #FEN -Not on any standing fluids -Electrolytes wnl, routine bmp monitoring -Sodium restricted diet #Prophylaxis -Lovenox 40mg daily #Disposition -admit to med-surg Visit type - Emergency Visit Emergency Visit: Yes ED Registration Date: 11/25/17 Care time: The patient presented to the Emergency Department on the above date and was hospitalized for further evaluation of their emergent condition. - New Patient This patient is new to me today: Yes Date on this admission: 11/27/17 - Critical Care Critical Care patient: No
[2017-11-27 15:12] VITALS: BMI 34.4
[2017-11-27] MEDS: guaiFENesin 200 MG/10 ML 10 ML UNIT-DOSE CUPS PO PRN (16:36)
[2017-11-27 17:27] LABS: URINE APPEARANCE CLEAR; URINE BILIRUBIN NEGATIVE (<2.0 mg/dL); URINE COLOR LTYELLOW; URINE GLUCOSE (UA) 1+ (NEGATIVE); URINE KETONE NEGATIVE (NEGATIVE); URINE LEUK ESTERASE NEGATIVE (NEGATIVE); URINE NITRITE NEGATIVE (NEGATIVE); URINE PROTEIN NEGATIVE (NEGATIVE); URINE UROBILINOGEN NEGATIVE mg/dL (0.2-1.0)
--- NOTE | 2017-11-27 17:40 | PN ---
Teaching Attending Note Name of Resident: Criselda Daniels ATTENDING PHYSICIAN STATEMENT I saw and evaluated the patient. I reviewed the resident's note and discussed the case with the resident. I agree with the resident's findings and plan as documented. SUBJECTIVE:states she continues to feel weak. + non productive cough. having urinary frequency. denies CP, SOB, fever, chills, N/V/C??D OBJECTIVE: Last Vital Signs Temp Pulse Resp BP Pulse Ox 99.4 F 99 H 18 141/65 95 11/27/17 15:28 11/27/17 15:28 11/27/17 16:54 11/27/17 15:28 11/27/17 16:54 General NAD CV S1 S2 RRR no murmur/rub/gallop Lungs CTA B/L no wheezing/rales/rhonchi Abdomen soft NT/ND obese ASSESSMENT AND PLAN: 72yo F wtih PMH COPD, DVT not on a/c, CAD, bipolar/shizophrenia sent from [facility] assisted living for non productive cough x1 week 1. Sepsis due to PNA-afebrile. continues to have cough. will give robitussin prn. cont levaquin day 3. PCN allergy noted. flu negative. 2.Transaminitis- possible due to infection vs statin therapy. now trending down. will cont to hold statin. consider re-starting on discharge. hepatitis panel pending 3. Leukocytosis- likely due to steroid in the ER however now c/o urinary frequency. may be from IVF she was receiving will check UA to r/o infection 4. hypophosphatemia- neutraphos 5. constipation- states no BM in 2 days. start miralax 6. COPD- no signs of acute exacerbation. received solumedrol in the ER. will hold for now 7. DVT not on anticoagulation 8. CAD- no signs of ACS. resume home medication 9. DVT ppx- lovenox 10. PT eval. will monitor to ensure leukocytosis is resolving. anticipate discharge in 24H
[2017-11-27] MEDS: ACETAMINOPHEN 325 MG TABLET (FP) PO PRN (17:42)
[2017-11-28] MEDS: MOMETASONE FUROATE 220 MCG/IH INHALER IH SCH ×2 (00:59→22:15)
[2017-11-28] MEDS: risperiDONE 1 MG TABLET (FP) PO SCH ×3 (01:00→22:16)
[2017-11-28] MEDS: guaiFENesin 200 MG/10 ML 10 ML UNIT-DOSE CUPS PO PRN ×3 (01:04→22:17)
[2017-11-28] MEDS: ACETAMINOPHEN 325 MG TABLET (FP) PO PRN (05:13)
[2017-11-28] MEDS: LEVOTHYROXINE NA 25 MCG TABLET (FP) PO SCH (06:40)
[2017-11-28] MEDS: CYCLOBENZAPRINE HCL 10 MG TABLET (FP) PO SCH ×3 (06:40→22:15)
[2017-11-28 07:29] LABS: HEMOGLOBIN 10.7 GM/dL (10.7-15.3); MCH 30.7 pg (25.7-33.7); MCHC 32.6 g/dl (32.0-36.0); MEAN CELL VOLUME 94.4 fl (80-96); MEAN PLT VOLUME 7.3 fl (7.5-11.1); PLATELET COUNT 307 K/MM3 (134-434); RBC 3.49 M/mm3 (3.60-5.2); RDW 14.7 % (11.6-15.6); WHITE BLOOD COUNT 11.8 K/mm3 (4.0-10.0)
[2017-11-28] MEDS: ALBUTEROL SO4 2.5/IPRATROPIUM 0.5 INH SOL 3 ML VIAL.NEB. NEB SCH ×3 (07:52→20:05)
[2017-11-28 08:11] LABS: ALBUMIN 2.3 g/dl (3.4-5.0); ALK PHOS 238 U/L (45-117); ANION GAP 9 MMOL/L (8-16); BILIRUBIN,TOTAL 0.6 mg/dL (0.2-1); BLOOD UREA NITROGEN 19 mg/dL (7-18); CALCIUM 8.5 mg/dL (8.5-10.1); CHLORIDE 105 mmol/L (98-107); CO2 23 mmol/L (21-32); CREATININE 0.9 mg/dL (0.55-1.3); GLUCOSE,RANDOM 142 mg/dL (74-106); MAGNESIUM 2.5 mg/dL (1.8-2.4); PHOSPHOROUS 3.7 mg/dL (2.5-4.9); POTASSIUM 4.4 mmol/L (3.5-5.1); SGOT/AST 33 U/L (15-37); SGPT/ALT 88 U/L (13-61); SODIUM 138 mmol/L (136-145); TOT PROT 5.4 g/dl (6.4-8.2)
--- NOTE | 2017-11-28 09:06 | PN ---
Progress Note (short form) - Note Progress Note: feels much better today. continues to have non productive cough. denies CP, SOB , fever, chills, N/V/C/D, dysuria Current Medications Generic Name Dose Route Start Last Admin Trade Name Freq PRN Reason Stop Dose Admin Acetaminophen 650 mg 11/26/17 14:12 11/28/17 05:13 Tylenol - PO 650 mg Q6H PRN Administration FEVER Albuterol Sulfate 1 puff 11/26/17 14:00 Ventolin Hfa Inhaler - IH TID PRN SHORTNESS OF BREATH Albuterol/Ipratropium 1 amp 11/26/17 16:00 11/28/17 07:52 Duoneb - NEB 1 amp RTID NITESH Administration Aripiprazole 5 mg 11/26/17 10:00 11/27/17 10:30 Abilify PO 5 mg DAILY [facility] Administration Aspirin 81 mg 11/26/17 10:00 11/27/17 10:29 Asa - PO 81 mg DAILY NITESH Administration Clopidogrel Bisulfate 75 mg 11/26/17 10:00 11/27/17 10:29 Plavix - PO 75 mg DAILY NITESH Administration Cyclobenzaprine HCl 5 mg 11/26/17 14:00 11/28/17 06:40 Flexeril - PO 5 mg TID NITESH Administration Docusate Sodium 100 mg 11/27/17 08:11 Colace - PO Q8H PRN CONSTIPATION Enoxaparin Sodium 40 mg 11/26/17 10:00 11/27/17 10:30 Lovenox - SQ 40 mg DAILY NITESH Administration Ferrous Sulfate 325 mg 11/26/17 10:00 11/27/17 10:29 Feosol - PO 325 mg DAILY NITESH Administration Guaifenesin 10 ml 11/27/17 08:12 11/28/17 01:04 Robitussin - PO 10 ml Q8H PRN Administration COUGH Levofloxacin 750 mg in 150 mls @ 100 mls/hr 11/26/17 10:00 11/27/17 10:29 Levaquin 750 Mg Premixed Ivpb - IVPB 100 mls/hr DAILY NIT[facility] Administration Protocol Levothyroxine Sodium 25 mcg 11/26/17 10:00 11/28/17 06:40 Synthroid - PO 25 mcg DAILY@0700 NIT[facility] Administration Mometasone Furoate 1 puff 11/28/17 00:30 11/28/17 00:59 Asmanex 220mcg - IH 1 puff HS NITESH Administration Pantoprazole Sodium 20 mg 11/26/17 10:00 11/27/17 10:29 Protonix - PO 20 mg DAILY NITESH Administration Polyethylene Glycol 17 gm 11/27/17 10:00 11/27/17 10:29 Miralax (For Daily Use) - PO 17 gm DAILY [facility]IT[facility] Administration Risperidone 1 mg 11/26/17 10:00 11/28/17 01:00 Risperdal - PO 1 mg BID NITESH Administration Solifenacin 10 mg 11/26/17 10:00 11/27/17 10:29 Vesicare - PO 10 mg DAILY NITESH Administration Last Vital Signs Temp Pulse Resp BP Pulse Ox 99.8 F H 86 20 121/66 95 11/28/17 05:07 11/28/17 05:07 11/28/17 05:07 11/28/17 05:07 11/27/17 21:00 General NAD CV S1 S2 RRR no murmur/rub/gallop Lungs CTA B/L no wheezing/rales/rhonchi Abdomen soft NT/ND obese CBCD WBC 11.8 K/mm3 (4.0-10.0) H 11/28/17 06:00 RBC 3.49 M/mm3 (3.60-5.2) L 11/28/17 06:00 Hgb 10.7 GM/dL (10.7-15.3) 11/28/17 06:00 Hct 33.0 % (32.4-45.2) 11/28/17 06:00 MCV 94.4 fl (80-96) 11/28/17 06:00 MCHC 32.6 g/dl (32.0-36.0) 11/28/17 06:00 RDW 14.7 % (11.6-15.6) 11/28/17 06:00 Plt Count 307 K/MM3 (134-434) 11/28/17 06:00 MPV 7.3 fl (7.5-11.1) L 11/28/17 06:00 CMP Sodium 138 mmol/L (136-145) 11/28/17 06:00 Potassium 4.4 mmol/L (3.5-5.1) 11/28/17 06:00 Chloride 105 mmol/L (98-107) 11/28/17 06:00 Carbon Dioxide 23 mmol/L (21-32) 11/28/17 06:00 Anion Gap 9 MMOL/L (8-16) 11/28/17 06:00 BUN 19 mg/dL (7-18) H 11/28/17 06:00 Creatinine 0.9 mg/dL (0.55-1.3) 11/28/17 06:00 Creat Clearance w eGFR > 60 (>60) 11/28/17 06:00 Calcium 8.5 mg/dL (8.5-10.1) 11/28/17 06:00 Total Bilirubin 0.6 mg/dL (0.2-1) 11/28/17 06:00 AST 33 U/L (15-37) 11/28/17 06:00 ALT 88 U/L (13-61) H 11/28/17 06:00 Alkaline Phosphatase 238 U/L (45-117) H 11/28/17 06:00 Total Protein 5.4 g/dl (6.4-8.2) L 11/28/17 06:00 Albumin 2.3 g/dl (3.4-5.0) L 11/28/17 06:00 ASSESSMENT AND PLAN: 72yo F wtih PMH COPD, DVT not on a/c, CAD, bipolar/shizophrenia sent from [facility] living for non productive cough x1 week 1. Sepsis due to PNA-afebrile. continues to have cough. encouraged her to request robitussin as she has not been asking. clinically improved. on levaquin day 4. PCN allergy noted. flu negative. 2.Transaminitis- possible due to infection vs statin therapy. now trending down. will cont to hold statin. consider re-starting on discharge. hepatitis panel pending 3. Leukocytosis- likely due to steroid in the ER however now c/o urinary frequency. now trending down. remains afebrile. UA negative. 4. hypophosphatemia- resolved 5. constipation- states no BM in 2 days. on miralax/colace/senna. consider suppository if no BM by tomorrow 6. COPD- no signs of acute exacerbation. received solumedrol in the ER. will hold for now 7. DVT not on anticoagulation 8. CAD- no signs of ACS. resume home medication 9. DVT ppx- lovenox 10. would benefit from JUANA. medically stable for discharge. awaiting ins auth Visit type - Emergency Visit Emergency Visit: Yes ED Registration Date: 11/25/17 Care time: The patient presented to the Emergency Department on the above date and was hospitalized for further evaluation of their emergent condition. - New Patient This patient is new to me today: No - Critical Care Critical Care patient: No - Discharge Referral Referred to [facility] No
[2017-11-28] MEDS ORDERED: PT OWN MED DRAWER 7, Y5N ONE (09:23)
[2017-11-28] MEDS: POLYETHYLENE GLYCOL 3350 119 GM BTL PO SCH (10:03)
[2017-11-28] MEDS: CLOPIDOGREL BISULFATE 75 MG TABLET (FP) PO SCH (10:03)
[2017-11-28] MEDS: FERROUS SO4 325 MG TABLET (FP) PO SCH (10:03)
[2017-11-28] MEDS: ENOXAPARIN NA (PORCINE) 40 MG/0.4 ML DISP.SYRIN SQ SCH (10:03)
[2017-11-28] MEDS: PANTOPRAZOLE 20 MG TABLET (FP) PO SCH (10:03)
[2017-11-28] MEDS: ASPIRIN 81 MG CHEWABLE TABLETS PO SCH (10:03)
[2017-11-28] MEDS: SOLIFENACIN SUCCINATE 5 MG TAB (FP) PO SCH (10:04)
[2017-11-28] MEDS: ARIPiprazole 5 MG TABLET (FP) PO SCH (10:05)
[2017-11-28 14:14] LABS: HEP.C VIRUS AB <0.1 s/co ratio (0.0-0.9)
[2017-11-29] MEDS: guaiFENesin 200 MG/10 ML 10 ML UNIT-DOSE CUPS PO PRN (05:41)
[2017-11-29] MEDS: ACETAMINOPHEN 325 MG TABLET (FP) PO PRN (05:41)
[2017-11-29] MEDS: CYCLOBENZAPRINE HCL 10 MG TABLET (FP) PO SCH ×4 (05:41→22:26)
[2017-11-29] MEDS: LEVOTHYROXINE NA 25 MCG TABLET (FP) PO SCH (06:04)
[2017-11-29] MEDS: ALBUTEROL SO4 2.5/IPRATROPIUM 0.5 INH SOL 3 ML VIAL.NEB. NEB SCH ×3 (07:30→19:33)
--- NOTE | 2017-11-29 08:19 | PN ---
Teaching Attending Note Name of Resident: Criselda Daniels ATTENDING PHYSICIAN STATEMENT I saw and evaluated the patient. I reviewed the resident's note and discussed the case with the resident. I agree with the resident's findings and plan as documented. SUBJECTIVE:continues to have cough but breathing has improved. denies Cp, SOB, fever, chills, N/V/C/D OBJECTIVE: Last Vital Signs Temp Pulse Resp BP Pulse Ox 101.1 F H 89 20 125/53 L 96 11/29/17 05:53 11/29/17 05:53 11/29/17 05:53 11/29/17 05:53 11/28/17 21:00 General NAD CV S1 S2 RRR Lungs CTA B/L no wheezing/rales/rhonchi Abdomen soft NT/Nd ASSESSMENT AND PLAN: 72yo F wtih PMH COPD, DVT not on a/c, CAD, [facility] x1 week 1. Sepsis due to PNA-Tm 101.1 this AM. will start sepsis workup (CXR and BCx) UA from 2 days ago was negative. has cough but not productive. will f/u cx sent. robitussin prn. lost IV access will switch levaquin to po day 5. PCN allergy noted. flu negative. 2.Transaminitis- possible due to infection vs statin therapy. now trending down. will cont to hold statin. consider re-starting on discharge. hepatitis panel pending 3. hypophosphatemia- resolved 4. constipation- BM yesterday. on miralax/colace/senna. 5. COPD- no signs of acute exacerbation. received solumedrol in the ER. will hold for now 6. DVT not on anticoagulation 7. CAD- no signs of ACS. resume home medication 8. DVT ppx- lovenox 9. would benefit from JUANA. [facility] sent
[2017-11-29 08:29] LABS: BASO % 0.4 % (0-2.0); HEMATOCRIT 35.6 % (32.4-45.2); HEMOGLOBIN 11.5 GM/dL (10.7-15.3); LYMPH % 14.5 % (8-40); MCH 30.7 pg (25.7-33.7); MCHC 32.3 g/dl (32.0-36.0); MEAN CELL VOLUME 95.1 fl (80-96); MEAN PLT VOLUME 7.6 fl (7.5-11.1); MONO % 4.5 % (3.8-10.2); NEUT % 78.6 % (42.8-82.8); PLATELET COUNT 304 K/MM3 (134-434); RBC 3.74 M/mm3 (3.60-5.2); RDW 14.9 % (11.6-15.6); WHITE BLOOD COUNT 14.1 K/mm3 (4.0-10.0)
--- NOTE | 2017-11-29 08:31 | PN ---
Physical Exam: SUBJECTIVE: Patient seen and examined at bedside this morning. Patient had fever this morning at 101.1. She reports not feeling well. Denies headache, dizziness, chest pain, palpitations, abdominal pain, diarrhea, constipation, urinary symptoms. OBJECTIVE: Vital Signs Period Temp Pulse Resp BP Sys/Lin Pulse Ox Last 24 Hr 98.0 F-101.1 F 71-112 20-20 115-137/45-68 95-96 GENERAL: Awake, alert, and fully oriented, in no acute distress. HEAD: Normal with no signs of trauma. EYES: PERRLA, EOMI, sclera anicteric, conjunctiva clear. EARS, NOSE, THROAT: Ears normal, nares patent, oropharynx clear without exudates. Dry mucous membranes. NECK: Normal range of motion, supple without lymphadenopathy, JVD, or masses. LUNGS: Diminished breath sounds at the lower bases, R>L, +wheezing, no rhonchi, no crackles HEART: Regular rate and rhythm, normal S1 and S2 without murmur, rub or gallop. ABDOMEN: Soft, nontender, not distended, normoactive bowel sounds. MUSCULOSKELETAL: Normal range of motion at all joints. No CVA tenderness. + tenderness on midaxillary area, bilaterally UPPER EXTREMITIES: 2+ pulses, warm, well-perfused. No cyanosis. No clubbing. No peripheral edema. LOWER EXTREMITIES: 2+ pulses, warm, well-perfused. No calf tenderness. +1 pitting edema NEUROLOGICAL: Cranial nerves II-XII intact. Normal speech. Gait not observed. PSYCHIATRIC: Cooperative. Good eye contact. Appropriate mood and affect. SKIN: Warm, dry, normal turgor, no rashes or lesions noted, normal capillary refill. Laboratory Results - last 24 hr 11/26/17 11/28/17 11/29/17 06:00 06:00 07:58 WBC 11.8 H 14.1 H RBC 3.49 L 3.74 Hgb 10.7 11.5 Hct 33.0 35.6 MCV 94.4 95.1 MCH 30.7 30.7 MCHC 32.6 32.3 RDW 14.7 14.9 Plt Count 307 304 MPV 7.3 L 7.6 Absolute Neuts (auto) 11.1 H Neutrophils % 78.6 Lymphocytes % 14.5 D Monocytes % 4.5 Eosinophils % 2.0 Basophils % 0.4 Nucleated RBC % 0 Hepatitis A IgM Ab Negative Hep Bs Antigen Negative Hep B Core IgM Ab Negative Hepatitis C Antibody <0.1 Active Medications Generic Name Dose Route Start Last Admin Trade Name Freq PRN Reason Stop Dose Admin Acetaminophen 650 mg 11/26/17 14:12 11/29/17 05:41 Tylenol - PO 650 mg Q6H PRN Administration FEVER Albuterol Sulfate 1 puff 11/26/17 14:00 Ventolin Hfa Inhaler - IH TID PRN SHORTNESS OF BREATH Albuterol/Ipratropium 1 amp 11/26/17 16:00 11/28/17 20:05 Duoneb - NEB 1 amp RTID NITESH Administration Aripiprazole 5 mg 11/26/17 10:00 11/28/17 10:05 Abilify PO 5 mg DAILY N[facility]ESH Administration Aspirin 81 mg 11/26/17 10:00 11/28/17 10:03 Asa - PO 81 mg DAILY NITESH Administration Clopidogrel Bisulfate 75 mg 11/26/17 10:00 11/28/17 10:03 Plavix - PO 75 mg DAILY [facility] Administration Cyclobenzaprine HCl 5 mg 11/26/17 14:00 11/29/17 05:41 Flexeril - PO 5 mg TID [facility] Administration Docusate Sodium 100 mg 11/27/17 08:11 Colace - PO Q8H PRN CONSTIPATION Enoxaparin Sodium 40 mg 11/26/17 10:00 11/28/17 10:03 Lovenox - SQ 40 mg DAILY [facility] Administration Ferrous Sulfate 325 mg 11/26/17 10:00 11/28/17 10:03 Feosol - PO 325 mg DAILY [facility] Administration Guaifenesin 10 ml 11/27/17 08:12 11/29/17 05:41 Robitussin - PO 10 ml Q8H PRN Administration COUGH Levofloxacin 750 mg 11/29/17 10:00 Levaquin PO DAILY@0600 [facility] Levothyroxine Sodium 25 mcg 11/26/17 10:00 11/29/17 06:04 Synthroid - PO 25 mcg DAILY@0700 [facility] Administration Mometasone Furoate 1 puff 11/28/17 00:30 11/28/17 22:15 Asmanex 220mcg - IH 1 puff HS [facility] Administration Pantoprazole Sodium 20 mg 11/26/17 10:00 11/28/17 10:03 Protonix - PO 20 mg DAILY [facility] Administration Polyethylene Glycol 17 gm 11/27/17 10:00 11/28/17 10:03 Miralax (For Daily Use) - PO 17 gm DAILY [facility] Administration Risperidone 1 mg 11/26/17 10:00 11/28/17 22:16 Risperdal - PO 1 mg BID [facility] Administration Solifenacin 10 mg 11/26/17 10:00 11/28/17 10:04 Vesicare - PO 10 mg DAILY NITESH Administration ASSESSMENT/PLAN: Patient is a 72 year old female with past medical history of COPD, DVT, GERD, urinary incontinence, HTN, HLD, Bipolar disorder, and Hypothyroidism, presented with nonproductive cough and worsening shortness of breath for a week. #Sepsis likely 2/2 Healthcare acquired pneumonia -Temp 101.1 today, WBC increased to 14.1 from 11.8 yesterday. -Tylenol given -Repeat blood cultures ordered -Repeat CXR - compared to prior study 11/25, the left base is better aerated. There is fluid with atelectasis or infiltrate at the right base. The mediastinum is not widened. -Switch IV Levaquin to PO 750mg daily.(Day 5) -Flu swab negative -Tylenol 650mg PRN for fever. #Transaminitis: resolving -likely 2/2 sepsis vs statin -Hepatitis panel -negative -Will hold Lipitor for now #COPD -Solumedrol given at the ED. -Will continue to monitor. -Duonebs q8h STA for now. -Continue home medications as needed #CAD -continue home ASA, Plavix -Hold atorvastatin for now #Hypertension -continue to monitor BP #Hyperlipidemia -Continue Atoravastatin 20mg daily #Bipolar disorder -Continue home medications #Hypothyroidism -Continue Synthroid 25mcg daily #FEN -Not on any standing fluids -Electrolytes wnl, routine bmp monitoring -Sodium restricted diet #Prophylaxis -Lovenox 40mg daily #Disposition -admit to med-surg Visit type - Emergency Visit Emergency Visit: Yes ED Registration Date: 11/25/17 Care time: The patient presented to the Emergency Department on the above date and was hospitalized for further evaluation of their emergent condition. - New Patient This patient is new to me today: Yes Date on this admission: 11/29/17 - Critical Care Critical Care patient: No
[2017-11-29 09:50] LABS: ANISOCYTOSIS 1+; MACROCYTOSIS 1+; PLATELET ESTIMATE NORMAL
[2017-11-29] MEDS: CLOPIDOGREL BISULFATE 75 MG TABLET (FP) PO SCH (09:55)
[2017-11-29] MEDS: PANTOPRAZOLE 20 MG TABLET (FP) PO SCH (09:55)
[2017-11-29] MEDS: ENOXAPARIN NA (PORCINE) 40 MG/0.4 ML DISP.SYRIN SQ SCH (09:55)
[2017-11-29] MEDS: FERROUS SO4 325 MG TABLET (FP) PO SCH (09:55)
[2017-11-29] MEDS: risperiDONE 1 MG TABLET (FP) PO SCH ×2 (09:55→22:24)
[2017-11-29] MEDS: ASPIRIN 81 MG CHEWABLE TABLETS PO SCH (09:55)
[2017-11-29] MEDS: ARIPiprazole 5 MG TABLET (FP) PO SCH (09:56)
[2017-11-29] MEDS: SOLIFENACIN SUCCINATE 5 MG TAB (FP) PO SCH (09:56)
[2017-11-29] MEDS: POLYETHYLENE GLYCOL 3350 119 GM BTL PO SCH (09:58)
[2017-11-29] MEDS: levoFLOXacin 750 MG TABLET PO SCH (11:57)
[2017-11-29] MEDS: MOMETASONE FUROATE 220 MCG/IH INHALER IH SCH (22:22)
[2017-11-29] MEDS ORDERED: PT OWN MED DRAWER 7, Y5N ONE (23:12)
[2017-11-30] MEDS ORDERED: PT OWN MED DRAWER 7, Y5N ONE ×2 (05:42→09:14)
[2017-11-30] MEDS: CYCLOBENZAPRINE HCL 10 MG TABLET (FP) PO SCH ×3 (06:05→23:10)
[2017-11-30] MEDS: levoFLOXacin 750 MG TABLET PO SCH (06:08)
[2017-11-30] MEDS: LEVOTHYROXINE NA 25 MCG TABLET (FP) PO SCH (06:08)
[2017-11-30 06:34] LABS: BASO % 0.5 % (0-2.0); HEMATOCRIT 34.6 % (32.4-45.2); HEMOGLOBIN 11.3 GM/dL (10.7-15.3); LYMPH % 17.5 % (8-40); MCH 31.1 pg (25.7-33.7); MCHC 32.6 g/dl (32.0-36.0); MEAN CELL VOLUME 95.3 fl (80-96); MEAN PLT VOLUME 7.5 fl (7.5-11.1); MONO % 5.5 % (3.8-10.2); NEUT % 74.5 % (42.8-82.8); PLATELET COUNT 302 K/MM3 (134-434); RBC 3.63 M/mm3 (3.60-5.2); RDW 14.6 % (11.6-15.6); WHITE BLOOD COUNT 11.6 K/mm3 (4.0-10.0)
[2017-11-30] MEDS: ALBUTEROL SO4 2.5/IPRATROPIUM 0.5 INH SOL 3 ML VIAL.NEB. NEB SCH ×3 (09:00→20:45)
--- NOTE | 2017-11-30 09:14 | PN ---
Physical Exam: SUBJECTIVE: Patient seen and examined at examined at bedside. no acute events overnight- patient is currently having complaints of feeling very fatigued and low energy.She has not really gotten out of the bed and says she is still having difficulty breathing.She has remained afebrile overnight and denies any chest pain, headaches, nausea or vomiting. OBJECTIVE: Vital Signs Period Temp Pulse Resp BP Sys/Lin Pulse Ox Last 24 Hr 97.5 F-98.8 F 78-97 20-20 119-148/53-74 96 GENERAL: The patient is awake, alert, and fully oriented, in no acute distress. NECK: no JVD appreciated LUNGS: slightly diminished breath sounds at the bases, lungs CTA B/L; no rales, rhonchi or wheezing. HEART: Regular rate and rhythm, S1, S2 without murmur, rub or gallop. ABDOMEN: Soft, nontender, nondistended, normoactive bowel sounds, no guarding, no rebound, no hepatosplenomegaly, no masses. EXTREMITIES: 2+ pulses, warm, well-perfused, no edema. NEUROLOGICAL: Cranial nerves II through XII grossly intact. Normal speech, gait not observed. PSYCH: Normal mood, normal affect. SKIN: Warm, dry, normal turgor, no rashes or lesions noted Laboratory Results - last 24 hr 11/29/17 11/30/17 07:58 06:00 WBC 11.6 H RBC 3.63 Hgb 11.3 Hct 34.6 MCV 95.3 MCH 31.1 MCHC 32.6 RDW 14.6 Plt Count 302 MPV 7.5 Absolute Neuts (auto) 8.6 H Neutrophils % 74.5 Neutrophils % (Manual) 72.7 Band Neutrophils % 3.0 Lymphocytes % 17.5 D Lymphocytes % (Manual) 15.2 Monocytes % 5.5 Monocytes % (Manual) 6 D Eosinophils % 2.0 Eosinophils % (Manual) 0.0 D Basophils % 0.5 Basophils % (Manual) 0.0 Myelocytes % (Man) 2 D Promyelocytes % (Man) 0 Blast Cells % (Manual) 0 Nucleated RBC % 0 Metamyelocytes 1 Hypochromia 0 Platelet Estimate Normal Polychromasia 1+ Poikilocytosis 1+ Anisocytosis 1+ Microcytosis 0 Macrocytosis 1+ Active Medications Generic Name Dose Route Start Last Admin Trade Name Freq PRN Reason Stop Dose Admin Acetaminophen 650 mg 11/26/17 14:12 11/29/17 05:41 Tylenol - PO 650 mg Q6H PRN Administration FEVER Albuterol Sulfate 1 puff 11/26/17 14:00 Ventolin Hfa Inhaler - IH TID PRN SHORTNESS OF BREATH Albuterol/Ipratropium 1 amp 11/26/17 16:00 11/29/17 19:33 Duoneb - NEB 1 amp RTID [facility] Administration Aripiprazole 5 mg 11/26/17 10:00 11/29/17 09:56 Abilify PO 5 mg DAILY [facility] Administration Aspirin 81 mg 11/26/17 10:00 11/29/17 09:55 Asa - PO 81 mg DAILY [facility] Administration Clopidogrel Bisulfate 75 mg 11/26/17 10:00 11/29/17 09:55 Plavix - PO 75 mg DAILY [facility] Administration Cyclobenzaprine HCl 5 mg 11/26/17 14:00 11/30/17 06:05 Flexeril - PO Not Given TID [facility] Docusate Sodium 100 mg 11/27/17 08:11 Colace - PO Q8H PRN CONSTIPATION Enoxaparin Sodium 40 mg 11/26/17 10:00 11/29/17 09:55 Lovenox - SQ 40 mg DAILY [facility] Administration Ferrous Sulfate 325 mg 11/26/17 10:00 11/29/17 09:55 Feosol - PO 325 mg DAILY [facility] Administration Guaifenesin 10 ml 11/27/17 08:12 11/29/17 05:41 Robitussin - PO 10 ml Q8H PRN Administration COUGH Levofloxacin 750 mg 11/29/17 10:00 11/30/17 06:08 Levaquin PO 750 mg DAILY@0600 [facility] Administration Levothyroxine Sodium 25 mcg 11/26/17 10:00 11/30/17 06:08 Synthroid - PO 25 mcg DAILY@0700 [facility] Administration Mometasone Furoate 1 puff 11/28/17 00:30 11/29/17 22:22 Asmanex 220mcg - IH 1 puff HS [facility] Administration Pantoprazole Sodium 20 mg 11/26/17 10:00 11/29/17 09:55 Protonix - PO 20 mg DAILY [facility] Administration Polyethylene Glycol 17 gm 11/27/17 10:00 11/29/17 09:58 Miralax (For Daily Use) - PO Not Given DAILY [facility] Risperidone 1 mg 11/26/17 10:00 11/29/17 22:24 Risperdal - PO 1 mg BID [facility] Administration Solifenacin 10 mg 11/26/17 10:00 11/29/17 09:56 Vesicare - PO 10 mg DAILY [facility] Administration ASSESSMENT/PLAN: #Sepsis likely 2/2 Healthcare acquired pneumonia -afebrile; WBC down trending Levaquin to PO 750mg daily.(Day 07/16) -Tylenol 650mg PRN for fever. #Transaminitis: resolving -likely 2/2 sepsis vs statin -Hepatitis panel -negative -Will hold Lipitor for now #COPD -Duonebs q8h STA for now. -Continue home medications as needed #CAD -continue home ASA, Plavix #Hypertension -continue to monitor BP #Hyperlipidemia -Continue Atoravastatin 20mg daily #Bipolar disorder -Continue home medications #Hypothyroidism -Continue Synthroid 25mcg daily #FEN -Not on any standing fluids -Electrolytes wnl, -Sodium restricted diet #Prophylaxis -Lovenox 40mg daily #Disposition -admit to med-surg Problem List - Problems (1) COPD exacerbation Code(s): J44.1 - CHRONIC OBSTRUCTIVE PULMONARY DISEASE W (ACUTE) EXACERBATION Visit type - Emergency Visit Emergency Visit: Yes ED Registration Date: 11/25/17 Care time: The patient presented to the Emergency Department on the above date and was hospitalized for further evaluation of their emergent condition. - New Patient This patient is new to me today: Yes Date on this admission: 11/30/17 - Critical Care Critical Care patient: No
[2017-11-30] MEDS: ASPIRIN 81 MG CHEWABLE TABLETS PO SCH (09:27)
[2017-11-30] MEDS: FERROUS SO4 325 MG TABLET (FP) PO SCH (09:27)
[2017-11-30] MEDS: PANTOPRAZOLE 20 MG TABLET (FP) PO SCH (09:27)
[2017-11-30] MEDS: CLOPIDOGREL BISULFATE 75 MG TABLET (FP) PO SCH (09:27)
[2017-11-30] MEDS: ENOXAPARIN NA (PORCINE) 40 MG/0.4 ML DISP.SYRIN SQ SCH (09:27)
[2017-11-30] MEDS: SOLIFENACIN SUCCINATE 5 MG TAB (FP) PO SCH (09:28)
[2017-11-30] MEDS: ARIPiprazole 5 MG TABLET (FP) PO SCH (09:28)
[2017-11-30] MEDS: risperiDONE 1 MG TABLET (FP) PO SCH ×2 (09:28→23:13)
[2017-11-30 10:10] LABS: ANISOCYTOSIS 0; MACROCYTOSIS 0; PLATELET ESTIMATE NORMAL
--- NOTE | 2017-11-30 13:21 | PN ---
Teaching Attending Note Name of Resident: Monica Joshi ATTENDING PHYSICIAN STATEMENT I saw and evaluated the patient. I reviewed the resident's note and discussed the case with the resident. I agree with the resident's findings and plan as documented. SUBJECTIVE:states she is tired. continues to have cough but not productive states she is not asking for robitussin. denies CP, SOb, fever, cihlls, N/V/C/ D. OBJECTIVE: Last Vital Signs Temp Pulse Resp BP Pulse Ox 98.4 F 89 20 117/75 96 11/30/17 10:00 11/30/17 10:00 11/30/17 10:00 11/30/17 10:00 11/30/17 09:00 General NAD CV S1 S2 RRR Lungs CTA B/L no wheezing/rales/rhonchi ASSESSMENT AND PLAN: 72yo F wtih PMH COPD, DVT not on a/c, CAD, bipolar/shizophrenia sent from [facility] for non productive cough x1 week 1. Sepsis due to PNA-afebrile, leukocytosis trending down. Repeat CXR showing clearing of L base consolidation with some residual in the R. Bcx are negative and UA from 2 days ago are negative. on levaquin day 6. will complete 7 day course. will need CXR in 4-6weeks. robitussin prn cough. (informed again she needs to ask for it). 2.Transaminitis- possible due to infection vs statin therapy. now trending down. will cont to hold statin. consider re-starting on discharge. hepatitis panel pending 3. hypophosphatemia- resolved 4. constipation- BM yesterday. on miralax/colace/senna. 5. COPD- no signs of acute exacerbation. received solumedrol in the ER. will hold for now 6. DVT not on anticoagulation 7. CAD- no signs of ACS. resume home medication 8. DVT ppx- lovenox 9. would benefit from [facility]. [facility] sent. awaiting bed availability and auth
[2017-11-30] MEDS: POLYETHYLENE GLYCOL 3350 119 GM BTL PO SCH (14:05)
[2017-11-30] MEDS: MOMETASONE FUROATE 220 MCG/IH INHALER IH SCH (23:12)
[2017-11-30] MEDS: guaiFENesin 200 MG/10 ML 10 ML UNIT-DOSE CUPS PO PRN (23:14)
[2017-12-01] MEDS: CYCLOBENZAPRINE HCL 10 MG TABLET (FP) PO SCH ×3 (06:11→23:23)
[2017-12-01] MEDS: LEVOTHYROXINE NA 25 MCG TABLET (FP) PO SCH (06:11)
[2017-12-01] MEDS: guaiFENesin 200 MG/10 ML 10 ML UNIT-DOSE CUPS PO PRN ×2 (06:11→23:25)
[2017-12-01] MEDS: levoFLOXacin 750 MG TABLET PO SCH (06:11)
[2017-12-01 07:21] LABS: HEMATOCRIT 35.1 % (32.4-45.2); HEMOGLOBIN 11.4 GM/dL (10.7-15.3); MCH 30.8 pg (25.7-33.7); MCHC 32.4 g/dl (32.0-36.0); MEAN CELL VOLUME 95.2 fl (80-96); MEAN PLT VOLUME 7.8 fl (7.5-11.1); PLATELET COUNT 297 K/MM3 (134-434); RBC 3.69 M/mm3 (3.60-5.2); RDW 14.6 % (11.6-15.6); WHITE BLOOD COUNT 9.4 K/mm3 (4.0-10.0)
[2017-12-01 08:22] LABS: ANION GAP 10 MMOL/L (8-16); BLOOD UREA NITROGEN 23 mg/dL (7-18); CALCIUM 8.9 mg/dL (8.5-10.1); CHLORIDE 104 mmol/L (98-107); CO2 26 mmol/L (21-32); CREATININE 0.8 mg/dL (0.55-1.3); GLUCOSE,RANDOM 145 mg/dL (74-106); MAGNESIUM 2.1 mg/dL (1.8-2.4); PHOSPHOROUS 3.4 mg/dL (2.5-4.9); POTASSIUM 4.1 mmol/L (3.5-5.1); SODIUM 140 mmol/L (136-145)
[2017-12-01] MEDS: ALBUTEROL SO4 2.5/IPRATROPIUM 0.5 INH SOL 3 ML VIAL.NEB. NEB SCH ×2 (08:51→14:20)
[2017-12-01] MEDS ORDERED: PT OWN MED DRAWER 7, Y5N ONE (10:00)
[2017-12-01] MEDS: CLOPIDOGREL BISULFATE 75 MG TABLET (FP) PO SCH (10:04)
[2017-12-01] MEDS: ENOXAPARIN NA (PORCINE) 40 MG/0.4 ML DISP.SYRIN SQ SCH (10:04)
[2017-12-01] MEDS: PANTOPRAZOLE 20 MG TABLET (FP) PO SCH (10:04)
[2017-12-01] MEDS: ASPIRIN 81 MG CHEWABLE TABLETS PO SCH (10:04)
[2017-12-01] MEDS: FERROUS SO4 325 MG TABLET (FP) PO SCH (10:04)
[2017-12-01] MEDS: SOLIFENACIN SUCCINATE 5 MG TAB (FP) PO SCH (10:05)
[2017-12-01] MEDS: risperiDONE 1 MG TABLET (FP) PO SCH ×2 (10:05→23:23)
[2017-12-01] MEDS: POLYETHYLENE GLYCOL 3350 119 GM BTL PO SCH (10:06)
[2017-12-01] MEDS: ARIPiprazole 5 MG TABLET (FP) PO SCH (10:06)
--- NOTE | 2017-12-01 13:35 | PN ---
Teaching Attending Note Name of Resident: Monica Joshi ATTENDING PHYSICIAN STATEMENT I saw and evaluated the patient. I reviewed the resident's note and discussed the case with the resident. I agree with the resident's findings and plan as documented. SUBJECTIVE:staets she feels much better today. cough is improving. denies CP, SOB, fever, chills, OBJECTIVE: Last Vital Signs Temp Pulse Resp BP Pulse Ox 98.5 F 92 H 20 114/84 97 12/01/17 10:00 12/01/17 10:00 12/01/17 10:00 12/01/17 10:00 12/01/17 09:00 General NAD Lungs CTA B/L no wheezing/rales/rhonchi ASSESSMENT AND PLAN: 72yo F wtih PMH COPD, DVT not on a/c, CAD, bipolar/shizophrenia sent from [facility] for non productive cough x1 week 1. Sepsis due to PNA-afebrile, clinically improved. ON levaquin day 7. will stop after today. will need CXR in 4-6weeks. robitussin prn cough. 2.Transaminitis- possible due to infection vs statin therapy. now trending down. will cont to hold statin. consider re-starting on discharge. hepatitis panel pending 3. hypophosphatemia- resolved 4. constipation- resolved. on miralax/colace/senna. 5. COPD- no signs of acute exacerbation. received solumedrol in the ER. will hold for now 6. DVT not on anticoagulation 7. CAD- no signs of ACS. resume home medication 8. DVT ppx- lovenox 9. would benefit from [facility]NA. [facility] sent. awaiting bed availability and auth
--- NOTE | 2017-12-01 16:05 | PN ---
Physical Exam: SUBJECTIVE: Patient seen and examined at bedside. No acute events overnight- patient states she feels her breathing has improved and that she is less fatigued than she has been in the past. Today is her last day of aquin. She denies any CP/SOB/N/V OBJECTIVE: Vital Signs Period Temp Pulse Resp BP Sys/Lin Pulse Ox Last 24 Hr 97.5 F-98.7 F 80-92 18-20 114-147/58-84 95-97 GENERAL: The patient is awake, alert, in no acute distress. EYES: no scleral icterus NECK: no JVD appreciated LUNGS: Breath sounds equal, clear to auscultation bilaterally, no wheezes, no crackles, no accessory muscle use. HEART: Regular rate and rhythm, S1, S2 without murmur, rub or gallop. ABDOMEN: Soft, nontender, nondistended, normoactive bowel sounds, no guarding, no rebound, no hepatosplenomegaly, no masses. EXTREMITIES: 2+ pulses, warm, well-perfused, no edema. . PSYCH: Normal mood, normal affect. SKIN: Warm, dry, normal turgor, no rashes or lesions noted Laboratory Results - last 24 hr 12/01/17 12/01/17 06:30 06:30 WBC 9.4 RBC 3.69 Hgb 11.4 Hct 35.1 MCV 95.2 MCH 30.8 MCHC 32.4 RDW 14.6 Plt Count 297 MPV 7.8 Sodium 140 Potassium 4.1 Chloride 104 Carbon Dioxide 26 Anion Gap 10 BUN 23 H Creatinine 0.8 Creat Clearance w eGFR > 60 Random Glucose 145 H Calcium 8.9 Phosphorus 3.4 Magnesium 2.1 Active Medications Generic Name Dose Route Start Last Admin Trade Name Freq PRN Reason Stop Dose Admin Acetaminophen 650 mg 11/26/17 14:12 11/29/17 05:41 Tylenol - PO 650 mg Q6H PRN Administration FEVER Albuterol Sulfate 1 puff 11/26/17 14:00 Ventolin Hfa Inhaler - IH TID PRN SHORTNESS OF BREATH Aripiprazole 5 mg 11/26/17 10:00 12/01/17 10:06 Abilify PO 5 mg DAILY [facility] Administration Aspirin 81 mg 11/26/17 10:00 12/01/17 10:04 Asa - PO 81 mg DAILY [facility] Administration Clopidogrel Bisulfate 75 mg 11/26/17 10:00 12/01/17 10:04 Plavix - PO 75 mg DAILY [facility] Administration Cyclobenzaprine HCl 5 mg 11/26/17 14:00 12/01/17 13:53 Flexeril - PO Not Given TID [facility] Docusate Sodium 100 mg 11/27/17 08:11 Colace - PO Q8H PRN CONSTIPATION Enoxaparin Sodium 40 mg 11/26/17 10:00 12/01/17 10:04 Lovenox - SQ 40 mg DAILY [facility] Administration Ferrous Sulfate 325 mg 11/26/17 10:00 12/01/17 10:04 Feosol - PO 325 mg DAILY [facility] Administration Guaifenesin 10 ml 11/27/17 08:12 12/01/17 06:11 Robitussin - PO 10 ml Q8H PRN Administration COUGH Levothyroxine Sodium 25 mcg 11/26/17 10:00 12/01/17 06:11 Synthroid - PO 25 mcg DAILY@0700 [facility] Administration Mometasone Furoate 1 puff 11/28/17 00:30 11/30/17 23:12 Asmanex 220mcg - IH 1 puff HS [facility] Administration Pantoprazole Sodium 20 mg 11/26/17 10:00 12/01/17 10:04 Protonix - PO 20 mg DAILY [facility] Administration Polyethylene Glycol 17 gm 11/27/17 10:00 12/01/17 10:06 Miralax (For Daily Use) - PO Not Given DAILY [facility] Risperidone 1 mg 11/26/17 10:00 12/01/17 10:05 Risperdal - PO 1 mg BID [facility] Administration Solifenacin 10 mg 11/26/17 10:00 12/01/17 10:05 Vesicare - PO 10 mg DAILY [facility] Administration ASSESSMENT/PLAN: #Sepsis likely 2/2 Healthcare acquired pneumonia -afebrile; WBC normalized Levaquin to PO 750mg daily.(Day 08/15) -Tylenol 650mg PRN for fever. #Transaminitis: resolving -likely 2/2 sepsis vs statin -Hepatitis panel -negative -Will hold Lipitor for now #COPD -Duonebs q8h STA for now. -Continue home medications as needed #CAD -continue home ASA, Plavix #Hypertension -continue to monitor BP #Hyperlipidemia -Continue Atoravastatin 20mg daily #Bipolar disorder -Continue home medications #Hypothyroidism -Continue Synthroid 25mcg daily #FEN -Not on any standing fluids -Electrolytes wnl, -Sodium restricted diet #Prophylaxis -Lovenox 40mg daily Problem List - Problems (1) COPD exacerbation Code(s): J44.1 - CHRONIC OBSTRUCTIVE PULMONARY DISEASE W (ACUTE) EXACERBATION Visit type - Emergency Visit Emergency Visit: Yes ED Registration Date: 11/25/17 Care time: The patient presented to the Emergency Department on the above date and was hospitalized for further evaluation of their emergent condition. - New Patient This patient is new to me today: No - Critical Care Critical Care patient: No
[2017-12-01] MEDS: MOMETASONE FUROATE 220 MCG/IH INHALER IH SCH (23:23)
[2017-12-02] MEDS: CYCLOBENZAPRINE HCL 10 MG TABLET (FP) PO SCH (06:00)
[2017-12-02] MEDS: LEVOTHYROXINE NA 25 MCG TABLET (FP) PO SCH (06:00)
[2017-12-02 07:34] LABS: HEMATOCRIT 35.5 % (32.4-45.2); HEMOGLOBIN 11.6 GM/dL (10.7-15.3); MCH 31.1 pg (25.7-33.7); MCHC 32.6 g/dl (32.0-36.0); MEAN CELL VOLUME 95.4 fl (80-96); MEAN PLT VOLUME 7.7 fl (7.5-11.1); PLATELET COUNT 353 K/MM3 (134-434); RBC 3.73 M/mm3 (3.60-5.2); RDW 14.5 % (11.6-15.6); WHITE BLOOD COUNT 8.4 K/mm3 (4.0-10.0)
[2017-12-02 07:46] LABS: ANION GAP 9 MMOL/L (8-16); BLOOD UREA NITROGEN 21 mg/dL (7-18); CALCIUM 8.4 mg/dL (8.5-10.1); CHLORIDE 106 mmol/L (98-107); CO2 25 mmol/L (21-32); CREATININE 0.9 mg/dL (0.55-1.3); GLUCOSE,RANDOM 145 mg/dL (74-106); SODIUM 140 mmol/L (136-145)
--- NOTE | 2017-12-02 09:48 | PN ---
Physical Exam: SUBJECTIVE: Patient seen and examined at bedside. States she is feeling better- her breathing has improved and she is feeling less fatigued. She did not need to use oxygen overnight. she denies any CP/SOB/N/V OBJECTIVE: Vital Signs Period Temp Pulse Resp BP Sys/Lin Pulse Ox Last 24 Hr 97.5 F-99.4 F 79-92 18-20 113-147/50-84 96 GENERAL: The patient is awake, alert, and fully oriented, in no acute distress. EYES:no scleral icterus NECK: no JVD appreciated. LUNGS: CTA B/L; no rales, rhonchi or wheezing HEART: Regular rate and rhythm, S1, S2 without murmur, rub or gallop. ABDOMEN: Soft, nontender, nondistended, normoactive bowel sounds, no guarding, no rebound, no hepatosplenomegaly, no masses. EXTREMITIES: 2+ pulses, warm, well-perfused, no edema. . PSYCH: Normal mood, normal affect. SKIN: Warm, dry, normal turgor, no rashes or lesions noted Laboratory Results - last 24 hr 12/02/17 12/02/17 06:45 06:45 WBC 8.4 RBC 3.73 Hgb 11.6 Hct 35.5 MCV 95.4 MCH 31.1 MCHC 32.6 RDW 14.5 Plt Count 353 MPV 7.7 Sodium 140 Potassium 4.0 Chloride 106 Carbon Dioxide 25 Anion Gap 9 BUN 21 H Creatinine 0.9 Creat Clearance w eGFR > 60 Random Glucose 145 H Calcium 8.4 L Active Medications Generic Name Dose Route Start Last Admin Trade Name Freq PRN Reason Stop Dose Admin Acetaminophen 650 mg 11/26/17 14:12 11/29/17 05:41 Tylenol - PO 650 mg Q6H PRN Administration FEVER Albuterol Sulfate 1 puff 11/26/17 14:00 Ventolin Hfa Inhaler - IH TID PRN SHORTNESS OF BREATH Aripiprazole 5 mg 11/26/17 10:00 12/01/17 10:06 Abilify PO 5 mg DAILY [facility] Administration Aspirin 81 mg 11/26/17 10:00 12/01/17 10:04 Asa - PO 81 mg DAILY N[facility] Administration Clopidogrel Bisulfate 75 mg 11/26/17 10:00 12/01/17 10:04 Plavix - PO 75 mg DAILY [facility] Administration Cyclobenzaprine HCl 5 mg 11/26/17 14:00 12/02/17 06:00 Flexeril - PO Not Given TID NITESH Docusate Sodium 100 mg 11/27/17 08:11 Colace - PO Q8H PRN CONSTIPATION Enoxaparin Sodium 40 mg 11/26/17 10:00 12/01/17 10:04 Lovenox - SQ 40 mg DAILY [facility] Administration Ferrous Sulfate 325 mg 11/26/17 10:00 12/01/17 10:04 Feosol - PO 325 mg DAILY [facility] Administration Guaifenesin 10 ml 11/27/17 08:12 12/01/17 23:25 Robitussin - PO 10 ml Q8H PRN Administration COUGH Levothyroxine Sodium 25 mcg 11/26/17 10:00 12/02/17 06:00 Synthroid - PO 25 mcg DAILY@0700 [facility] Administration Mometasone Furoate 1 puff 11/28/17 00:30 12/01/17 23:23 Asmanex 220mcg - IH 1 puff HS [facility] Administration Pantoprazole Sodium 20 mg 11/26/17 10:00 12/01/17 10:04 Protonix - PO 20 mg DAILY [facility] Administration Polyethylene Glycol 17 gm 11/27/17 10:00 12/01/17 10:06 Miralax (For Daily Use) - PO Not Given DAILY [facility] Risperidone 1 mg 11/26/17 10:00 12/01/17 23:23 Risperdal - PO 1 mg BID NITESH Administration Solifenacin 10 mg 11/26/17 10:00 12/01/17 10:05 Vesicare - PO 10 mg DAILY NIT[facility] Administration ASSESSMENT/PLAN: #Sepsis likely 2/2 Healthcare acquired pneumonia -afebrile; WBC normalized -Tylenol 650mg PRN for fever. #Transaminitis: resolving -likely 2/2 sepsis vs statin -Hepatitis panel -negative -Will hold Lipitor for now #COPD -Duonebs q8h STA for now. -Continue home medications as needed #CAD -continue home ASA, Plavix #Hypertension -continue to monitor BP #Hyperlipidemia -Continue Atoravastatin 20mg daily #Bipolar disorder -Continue home medications #Hypothyroidism -Continue Synthroid 25mcg daily #FEN -Not on any standing fluids -Electrolytes wnl, -Sodium restricted diet #Prophylaxis -Lovenox 40mg daily Problem List - Problems (1) COPD exacerbation Code(s): J44.1 - CHRONIC OBSTRUCTIVE PULMONARY DISEASE W (ACUTE) EXACERBATION
[2017-12-02] MEDS: ASPIRIN 81 MG CHEWABLE TABLETS PO SCH (10:00)
[2017-12-02] MEDS: FERROUS SO4 325 MG TABLET (FP) PO SCH (10:00)
[2017-12-02] MEDS: ENOXAPARIN NA (PORCINE) 40 MG/0.4 ML DISP.SYRIN SQ SCH (10:00)
[2017-12-02] MEDS: CLOPIDOGREL BISULFATE 75 MG TABLET (FP) PO SCH (10:00)
[2017-12-02] MEDS: POLYETHYLENE GLYCOL 3350 119 GM BTL PO SCH (10:01)
[2017-12-02] MEDS: PANTOPRAZOLE 20 MG TABLET (FP) PO SCH (10:01)
[2017-12-02] MEDS: SOLIFENACIN SUCCINATE 5 MG TAB (FP) PO SCH (10:01)
[2017-12-02] MEDS: risperiDONE 1 MG TABLET (FP) PO SCH (10:02)
[2017-12-02] MEDS: ARIPiprazole 5 MG TABLET (FP) PO SCH (10:02)
--- NOTE | 2017-12-02 12:25 | PN ---
Teaching Attending Note Name of Resident: Monica Joshi ATTENDING PHYSICIAN STATEMENT I saw and evaluated the patient. I reviewed the resident's note and discussed the case with the resident. I agree with the resident's findings and plan as documented. SUBJECTIVE:feeling better. cough has resolved. denies CP, SOB, fever, chills, N/ V/C/D OBJECTIVE: Last Vital Signs Temp Pulse Resp BP Pulse Ox 98.6 F 80 18 115/49 L 96 12/02/17 10:00 12/02/17 10:00 12/02/17 10:00 12/02/17 10:00 12/02/17 09:00 General NAD Lungs CTA B/L no wheezing/rales/rhonchi ASSESSMENT AND PLAN: 72yo F wtih PMH COPD, DVT not on a/c, CAD, bipolar/shizophrenia sent from [facility] for non productive cough x1 week 1. Sepsis due to PNA-afebrile, clinically improved. completed 7 day course of levaquin. noted she has had the oxygen tubing on her face but as per RN has been off for several days. currentl 98% on RA. will need CXR in 4-6weeks. robitussin prn cough. 2.Transaminitis- possible due to infection vs statin therapy. now trending down. will cont to hold statin. consider re-starting on discharge. hepatitis panel pending 3. hypophosphatemia- resolved 4. constipation- resolved. on miralax/colace/senna. 5. COPD- no signs of acute exacerbation. received solumedrol in the ER. will hold for now 6. DVT not on anticoagulation 7. CAD- no signs of ACS. resume home medication 8. DVT ppx- lovenox 9. d/c tp JUANA today
[2017-12-02 13:45] VITALS: BP 108/58; PULSE 64; TEMP 97.3
--- NOTE | 2017-12-02 16:34 | DS ---
Physical Exam: SUBJECTIVE: Patient seen and examined at bedside. No acute events overnight. She states she feels her breathing is better and she is much less fatigued. She denies any CP/SOB/N/V fevers or chills. OBJECTIVE: Vital Signs Period Temp Pulse Resp BP Sys/Lin Pulse Ox Last 24 Hr 97.3 F-99.4 F 64-86 18-20 108-120/49-62 96-96 PHYSICAL EXAM GENERAL: The patient is awake, alert, and fully oriented, in no acute distress. EYES:no scleral icterus NECK: no JVD appreciated LUNGS: CTA B/L; no rales, rhonchi or wheezing HEART: Regular rate and rhythm, S1, S2 without murmur, rub or gallop. ABDOMEN: Soft, nontender, nondistended, normoactive bowel sounds, no guarding, no rebound, no hepatosplenomegaly, no masses. EXTREMITIES: 2+ pulses, warm, well-perfused, no edema. PSYCH: Normal mood, normal affect. SKIN: Warm, dry, normal turgor, no rashes or lesions noted. LABS Laboratory Results - last 24 hr 12/02/17 12/02/17 06:45 06:45 WBC 8.4 RBC 3.73 Hgb 11.6 Hct 35.5 MCV 95.4 MCH 31.1 MCHC 32.6 RDW 14.5 Plt Count 353 MPV 7.7 Sodium 140 Potassium 4.0 Chloride 106 Carbon Dioxide 25 Anion Gap 9 BUN 21 H Creatinine 0.9 Creat Clearance w eGFR > 60 Random Glucose 145 H Calcium 8.4 L HOSPITAL COURSE: Patient came to the hospital with complaints of shortness of breath and a worsening cough with a 102 fever recorded at her group home facility. She had a leukocytosis of 10.2 on admission. On her chest xray there was questionable consolidation v. atelectasis at the lung bases. She also had a transaminits on admission, AST 56/ALT 94- her statins were held. She was started on levaquin 750. For her COPD she was given duonebs PRN. Her repeat chest XRAY done 4 days after admission and showed interval improvement. She was switched from IV to oral levaquin and completed the entire 7 day course here. She has clinically improved and was stable to go home. Date of Admission:11/25/17 Date of Discharge: 12/02/17 Minutes to complete discharge: 30 Discharge Summary Reason For Visit: ACUTE EXACERBATION OF CHRONIC OBSTRUCTIVE PULMONAR Condition: Stable - Instructions Diet, Activity, Other Instructions: You came to the hospital with complaints of worsening shortness of breath, cough , and fever, found to have pneumonia. We started you on an antibiotic called levaquin to treat the infection and today is the last day of the antibiotic. Your chest XRAYS show improvement from when you first arrived to the hospital until now. For your COPD, we were giving you a nebulizer for the times that you were experiencing shortness of breath. You attest that your shortness of breath is improving, though not back to normal, and you are no longer having fevers. You finished your antibiotic and clinically have improved. Please continue all of your home medications. Referrals: -we advise that you follow up with your primary care physician in one week. You should have a repeat Chest Xray in 4-6 weeks. *if you are experiencing chest pain, shortness of breath, fevers, nausea, dizziness or vomiting please return to the emergency room immediately Referrals: Jaswinder Maldonado [Primary Care Provider] - 1 Week Disposition: [facility] - Home Medications Comprehensive Discharge Medication List: Ambulatory Orders Albuterol Sulfate Inhaler - [Ventolin Hfa Inhaler -] 1 puff IH TID 11/25/17 Alendronate Sodium/Vitamin D3 [Fosamax Plus D 70 mg-5,600 Iu vIT d] 1 each PO WEEKLY 11/25/17 Aripiprazole [Abilify] 5 mg PO DAILY 11/25/17 Aspirin 81 mg PO DAILY 11/25/17 Atorvastatin Ca [Lipitor] 20 mg PO HS 11/25/17 Budesonide [Pulmicort Flexhaler] 180 mcg IH BID 11/25/17 Clopidogrel Bisulfate [Plavix] 75 mg PO DAILY 11/25/17 Cyclobenzaprine HCl [Flexeril -] 5 mg PO TID 11/25/17 Ferrous Sulfate [Feosol] 325 mg PO DAILY 11/25/17 Levothyroxine [Synthroid -] 25 mcg PO DAILY 11/25/17 Naproxen 500 mg PO TID 11/25/17 Pantoprazole Sodium [Protonix -] 20 mg PO DAILY 11/25/17 Risperidone 1 mg PO BID 11/25/17 Solifenacin Succinate [Vesicare -] 10 mg PO DAILY 11/25/17 Tiotropium [place] [Spiriva] 2.5 mcg IH DAILY 11/25/17 Problem List - Problems (1) COPD exacerbation Code(s): J44.1 - CHRONIC OBSTRUCTIVE PULMONARY DISEASE W (ACUTE) EXACERBATION This patient is new to me today: Yes Date on this admission: 12/02/17 Emergency Visit: No Critical Care patient: No - Discharge Referral Referred to [facility] No
== END 2017-12-02 13:51 | DRG 871 ==
LOC: JER 13:25 → JERBED 15:59 → OBSVTOIN 17:55 → J8W 19:41 → J7W 11-27 16:44
PROVIDERS: ADMIT Internal Medicine; ATTEND Internal Medicine
DX: A41.9 Sepsis, unspecified organism (principal); J18.9 Pneumonia, unspecified organism; J90 Pleural effusion, not elsewhere classified; J44.1 Chronic obstructive pulmonary disease with (acute) exacerbation; J98.11 Atelectasis; E78.5 Hyperlipidemia, unspecified; E03.9 Hypothyroidism, unspecified; I25.10 Atherosclerotic heart disease of native coronary artery without angina pectoris; F31.9 Bipolar disorder, unspecified; K21.9 Gastro-esophageal reflux disease without esophagitis; D64.9 Anemia, unspecified; R32 Unspecified urinary incontinence; R50.9 Fever, unspecified; R00.0 Tachycardia, unspecified; F20.9 Schizophrenia, unspecified; E83.39 Other disorders of phosphorus metabolism; K59.00 Constipation, unspecified; D72.829 Elevated white blood cell count, unspecified; Z86.718 Personal history of other venous thrombosis and embolism; Z88.0 Allergy status to penicillin; Z79.52 Long term (current) use of systemic steroids
CPT/HCPCS: 36415; 71045-TC-FY; 80048; 80053; 80074; 81003; 82550; 82553; 82803; 83036; 83605; 83735; 83880; 84100; 84484; 85025; 85027; 85610; 85730; 87040; 87804; 93005; 93010; 94640; 97116-GP; 97161-GP; 99284-25; G0378; J0131; J2794; J7030

== ENCOUNTER 2018-06-11 17:16 | Emergency (ER) | payer OTHER ==
[2018-06-11 18:08] VITALS: BP 172/54; PULSE 87; TEMP 97.8; BMI 32.9
--- NOTE | 2018-06-11 18:47 | PDOC ---
History of Present Illness - General Chief Complaint: Pain, Acute Stated Complaint: ABD PAIN History Source: Patient Exam Limitations: No Limitations - History of Present Illness Initial Comments: 06/11/18 20:00 73 yo F with a hx of COPD presents to the emergency department with SOB that began today. Per the patient, she has been using her albuterol twice a day and does not use home O2. No hx of intubation and last hospitalization per the patient was 6 months ago. She denies chest pain. Denies the following: fever, chills, nausea, vomiting, abdominal pain, dysuria, hematuria, diarrhea, hematochezia, and leg pain/swelling. Denies recent travel, hx of DVT/PE, recent surgeries, and recent immobilizations. Allergies: PCN Shx: None Meds: albuterol. Does not take anticoagulants Social: Denies tobacco, alcohol, and substance abuse. Past History - Past Medical History Allergies/Adverse Reactions: Allergies Allergy/AdvReac Type Severity Reaction Status Date / Time morphine Allergy Unknown Verified 06/11/18 18:05 Penicillins Allergy Unknown Verified 06/11/18 18:05 chocolate Allergy Unknown Uncoded 06/11/18 18:05 Home Medications: Ambulatory Orders Albuterol Sulfate Inhaler - [Ventolin Hfa Inhaler -] 1 - 2 inh PO QID 06/11/18 Alendronate Sodium/Vitamin D3 [Fosamax Plus D 70 mg-5,600 Iu vIT d] 1 each PO Q7D 06/11/18 Aripiprazole [Abilify] 5 mg PO DAILY 06/11/18 Aspirin 81 mg PO DAILY 06/11/18 Atorvastatin Ca [Lipitor] 20 mg PO HS 06/11/18 Budesonide [Pulmicort Flexhaler] 180 mcg IH BID 06/11/18 Clopidogrel Bisulfate [Plavix] 75 mg PO DAILY 06/11/18 Cyclobenzaprine HCl [Flexeril -] 10 mg PO TID 06/11/18 Ferrous Sulfate [Feosol] 325 mg PO DAILY 06/11/18 Levothyroxine [Synthroid -] 25 mcg PO DAILY 06/11/18 Multivitamins [Tab-A-Vit -] 1 tab PO DAILY 06/11/18 Naproxen Sodium 550 mg PO TID 06/11/18 Pantoprazole Sodium [Protonix -] 20 mg PO DAILY 06/11/18 Risperidone [Risperdal] 1 mg PO BID 06/11/18 Solifenacin Succinate [Vesicare -] 10 mg PO DAILY 06/11/18 Tiotropium [place] [Spiriva] 1 inh PO DAILY 06/11/18 Anemia: Yes Asthma: Yes Cancer: No Cardiac Disorders: (hx of chest pain) CVA: No COPD: Yes (PT STATED) CHF: No DVT: No Dementia: No Diabetes: No GI Disorders: Yes (GERD) Disorders: Yes (incontinence) HTN: Yes Hypercholesterolemia: Yes Liver Disease: No Psychiatric Problems: Yes (BiPolar) Seizures: Yes Thyroid Disease: Yes (HYPO.) - Surgical History Abdominal Surgery: No Appendectomy: No Cardiac Surgery: No Cholecystectomy: No Lung Surgery: No Neurologic Surgery: No Orthopedic Surgery: No - Immunization History Td Vaccination: (unknown) Immunization Up to Date: No - Suicide/Smoking/Psychosocial Hx Smoking Status: No Smoking History: Unknown if ever smoked Years of Tobacco Use: 0 Have you smoked in the past 12 months: No Number of Cigarettes Smoked Daily: 0 Cigars Per Day: 0 Hx Alcohol Use: No Drug/Substance Use Hx: No Substance Use Type: None Hx Substance Use Treatment: No *Physical Exam - Vital Signs Last Vital Signs Temp Pulse Resp BP Pulse Ox 97.8 F 87 17 172/54 H 96 06/11/18 18:00 06/11/18 18:00 06/11/18 18:00 06/11/18 18:00 06/11/18 18:00 ED Treatment Course - LABORATORY CBC & Chemistry Diagram: 06/11/18 20:45 06/11/18 20:45 *DC/Admit/Observation/Transfer Diagnosis at time of Disposition: COPD (chronic obstructive pulmonary disease) - Discharge Dispostion Disposition: HOME Decision to Admit order: No - Referrals Referrals: Jaswinder Maldonado [Primary Care Provider] - - Patient Instructions Printed Discharge Instructions: DI for Shortness of Breath Additional Instructions: please see your primary medical physician within 1 week after discharge for follow up care and management. please return to the emergency medicine department if you have worsening symptoms or new concerning symptoms such as fever, chills, confusion, chest pain, and upper back pain. thanks - Post Discharge Activity
[2018-06-11] MEDS ORDERED: methylPREDNISolone NA SUCC 125 MG/2 ML VIAL IVPB ONE (19:25)
[2018-06-11] MEDS ORDERED: ALBUTEROL SO4 2.5/IPRATROPIUM 0.5 INH SOL 3 ML VIAL.NEB. NEB ONE ×3 (19:52→21:18)
[2018-06-11] MEDS ORDERED: methylPREDNISolone NA SUCC 125 MG/2 ML VIAL ONE (19:52)
[2018-06-11] MEDS: ALBUTEROL SO4 2.5/IPRATROPIUM 0.5 INH SOL 3 ML VIAL.NEB. NEB SCH ×3 (19:55→21:06)
[2018-06-11] MEDS ORDERED: SODIUM CHLORIDE 500 ML IV STA (20:48)
[2018-06-11] MEDS ORDERED: ACETAMINOPHEN 1000 MG/100 ML VIAL (NON FORMULARY) IVPB ONE (20:48)
[2018-06-11 21:15] LABS: BASO % 0.7 % (0-2.0); EOS % 3.8 % (0-4.5); HEMATOCRIT 38.6 % (32.4-45.2); LYMPH % 26.5 % (8-40); MCH 32.1 pg (25.7-33.7); MCHC 33.7 g/dl (32.0-36.0); MEAN CELL VOLUME 95.4 fl (80-96); MONO % 7.4 % (3.8-10.2); NEUT % 61.6 % (42.8-82.8); PLATELET COUNT 227 K/MM3 (134-434); RBC 4.04 M/mm3 (3.60-5.2); RDW 13.8 % (11.6-15.6); WHITE BLOOD COUNT 10.1 K/mm3 (4.0-10.0)
[2018-06-11] MEDS ORDERED: ACETAMINOPHEN INJECTION 100 ML IVPB ONE (21:18)
[2018-06-11 21:25] LABS: ALBUMIN 4.2 g/dl (3.4-5.0); ALK PHOS 105 U/L (45-117); ANION GAP 6 MMOL/L (8-16); BILIRUBIN,TOTAL 0.3 mg/dL (0.2-1); BLOOD UREA NITROGEN 18 mg/dL (7-18); CALCIUM 9.3 mg/dL (8.5-10.1); CHLORIDE 107 mmol/L (98-107); CO2 27 mmol/L (21-32); GLUCOSE,RANDOM 113 mg/dL (74-106); POTASSIUM 4.4 mmol/L (3.5-5.1); SGOT/AST 11 U/L (15-37); SGPT/ALT 21 U/L (13-61); SODIUM 140 mmol/L (136-145); TOT PROT 6.5 g/dl (6.4-8.2)
--- NOTE | 2018-06-11 22:51 | PDOC ---
Documentation entered by Bo Gregory SCRIBE, acting as scribe for Shea Maki MD. Shea Maki MD: This documentation has been prepared by the Bri [employer] Nirvannie, SCRIBE, under my direction and personally reviewed by me in its entirety. I confirm that the documentation accurately reflects all work, treatment, procedures, and medical decision making performed by me. Attending Attestation - Resident Resident Name: Franklyn Ceja - ED Attending Attestation I have performed the following: I have examined & evaluated the patient, The case was reviewed & discussed with the resident, I agree w/resident's findings & plan - HPI HPI: 06/11/18 20:26 The patient is a 73 year old female, with a significant past medical history of anemia, asthma, COPD (no intubations), GERD, HTN, hypercholesterolemia, hypothyroidism, and bipolar disorder, who presents to the emergency department with, 1 day of shortness of breath. She denies any chest pain. Allergies: penicillins, morphine, and chocolate. Primary Care Physician: Dr. Maldonado - Physicial Exam PE: 06/11/18 22:30 GENERAL: Awake, alert, and fully oriented, in no acute distress HEAD: No signs of trauma NECK: Normal ROM, supple, no lymphadenopathy, JVD, or masses LUNGS: Breath sounds equal, clear to auscultation bilaterally. No wheezes, and no crackles HEART: Regular rate and rhythm, normal S1 and S2, no murmurs, rubs or gallops ABDOMEN: Soft, nontender, normoactive bowel sounds. No guarding, no rebound. No masses EXTREMITIES: Normal range of motion, no edema. No clubbing or cyanosis. No cords, erythema, or tenderness NEUROLOGICAL: Cranial nerves II through XII grossly intact. Normal speech SKIN: Warm, Dry, normal turgor, no rashes or lesions noted. - Medical Decision Making 06/12/18 03:51 Pt has normal labs and normal exam and normal vitals and she is feeling better. She will go back to the [place]. She is amenable to this plan and she agrees that her pain may have been due to anxiety and stress.
--- NOTE | 2018-06-12 09:46 | EKG ---
Test Reason : Blood Pressure : / mmHG Vent. Rate : 079 BPM Atrial Rate : 079 BPM P-R Int : 192 ms QRS Dur : 088 ms QT Int : 398 ms P-R-T Axes : 047 005 071 degrees QTc Int : 456 ms NORMAL SINUS RHYTHM NORMAL ECG WHEN COMPARED WITH ECG OF 25-NOV-2017 14:29, CRITERIA FOR SEPTAL INFARCT ARE NO LONGER PRESENT Confirmed by JANE MÉNDEZ, OG ([id number]) on 06/12/2018 9:46:07 AM Referred By: Confirmed By:OG LARA MD
== END 2018-06-12 01:15 | disposition home or self-care (01) ==
LOC: JER 17:16
PROC: 3E0F7GC Introduction of Other Therapeutic Substance into Respiratory Tract, Via Natural or Artificial Opening (ICD-10-PCS; principal; 2018-06-11)
PROC: 3E0337Z Introduction of Electrolytic and Water Balance Substance into Peripheral Vein, Percutaneous Approach (ICD-10-PCS; 2018-06-11)
PROC: 3E033NZ Introduction of Analgesics, Hypnotics, Sedatives into Peripheral Vein, Percutaneous Approach (ICD-10-PCS; 2018-06-11)
PROC: 3E0333Z Introduction of Anti-inflammatory into Peripheral Vein, Percutaneous Approach (ICD-10-PCS; 2018-06-11)
DX: J44.9 Chronic obstructive pulmonary disease, unspecified (principal); J45.909 Unspecified asthma, uncomplicated; I10 Essential (primary) hypertension; E78.00 Pure hypercholesterolemia, unspecified; E03.9 Hypothyroidism, unspecified; K21.9 Gastro-esophageal reflux disease without esophagitis; F31.9 Bipolar disorder, unspecified
CPT/HCPCS: 36415; 71045-TC-FY; 80053; 84484; 85025; 93005; 93010; 94640; 96361; 96374; 96375; 99283-25; J0131

== ENCOUNTER 2018-07-28 14:47 | Emergency (ER) | payer OTHER ==
--- NOTE | 2018-07-28 15:04 | PDOC ---
History of Present Illness - General Stated Complaint: RT KNEE PAIN Time Seen by Provider: 07/28/18 15:04 History Source: Patient Exam Limitations: No Limitations - History of Present Illness Initial Comments: 07/28/18 15:12 73 year old female with PMH HTN, HLD, COPD, asthma, anemia, hypothyroidism, GERD , seizure disorder, parkinsons, syncope presented to ED for right knee pain s/p fall two days ago. Pt reported she was attempting to shut the window, lost her balance and fell onto her right knee. Pt denied head injury, LOC, vomiting. Pt stated she has been able to ambulate, but the pain has not subsided, bringing her to the ED. Pt reported she took tylenol this AM. Allergies: morphine, PCN Past History - Past Medical History Allergies/Adverse Reactions: Allergies Allergy/AdvReac Type Severity Reaction Status Date / Time morphine Allergy Unknown Verified 07/28/18 15:10 Penicillins Allergy Unknown Verified 07/28/18 15:10 chocolate Allergy Unknown Uncoded 07/28/18 15:10 Home Medications: Ambulatory Orders Albuterol Sulfate Inhaler - [Ventolin Hfa Inhaler -] 1 - 2 inh PO QID 06/11/18 Alendronate Sodium/Vitamin D3 [Fosamax Plus D 70 mg-5,600 Iu vIT d] 1 each PO Q7D 06/11/18 Aripiprazole [Abilify] 5 mg PO DAILY 06/11/18 Aspirin 81 mg PO DAILY 06/11/18 Atorvastatin Ca [Lipitor] 20 mg PO HS 06/11/18 Clopidogrel Bisulfate [Plavix] 75 mg PO DAILY 06/11/18 Cyclobenzaprine HCl [Flexeril -] 10 mg PO TID 06/11/18 Ferrous Sulfate [Feosol] 325 mg PO DAILY 06/11/18 Levothyroxine [Synthroid -] 25 mcg PO DAILY 06/11/18 Pantoprazole Sodium [Protonix -] 20 mg PO DAILY 06/11/18 Risperidone [Risperdal] 1 mg PO BID 06/11/18 Solifenacin Succinate [Vesicare -] 10 mg PO DAILY 06/11/18 Tiotropium [place] [Spiriva] 1 inh PO DAILY 06/11/18 Amlodipine [place] 5 mg PO DAILY 07/28/18 Docusate Sodium 200 mg PO HS 07/28/18 Fluticasone Prop 0.05% Nasal [Flonase -] 1 spray NS BID 07/28/18 Montelukast Sodium [Singulair] 10 mg PO DAILY 07/28/18 Anemia: Yes Asthma: Yes Cancer: No Cardiac Disorders: (hx of chest pain) CVA: No COPD: Yes (PT STATED) CHF: No DVT: No Dementia: No Diabetes: No GI Disorders: Yes (GERD) Disorders: Yes (incontinence) HTN: Yes Hypercholesterolemia: Yes Liver Disease: No Psychiatric Problems: Yes (BiPolar) Seizures: Yes Thyroid Disease: Yes (HYPO.) - Surgical History Abdominal Surgery: No Appendectomy: No Cardiac Surgery: No Cholecystectomy: No Lung Surgery: No Neurologic Surgery: No Orthopedic Surgery: No - Immunization History Td Vaccination: (unknown) Immunization Up to Date: No - Suicide/Smoking/Psychosocial Hx Smoking Status: No Smoking History: Never smoked Years of Tobacco Use: 0 Have you smoked in the past 12 months: No Number of Cigarettes Smoked Daily: 0 Cigars Per Day: 0 Hx Alcohol Use: No Drug/Substance Use Hx: No Substance Use Type: None Hx Substance Use Treatment: No Review of Systems - Review of Systems Able to Perform ROS?: Yes Comments:: 07/28/18 15:05 General: denied fever, chills, generalized weakness. HEENT: denied sore throat, rhinorrhea, ear pain. Heart: denied chest pain, palpitations, syncope, diaphoresis. Respiratory: denied shortness of breath, cough, sputum production, hemoptysis. Abdomen: denied abdominal pain, nausea, vomiting, diarrhea, constipation, blood in stool. : denied dysuria, increased urinary frequency, hematuria, urinary incontinence , flank pain. Pelvis: denied hip pain, pelvic pain. Back: denied back pain. Musculoskeletal: admitted to right knee pain. denied muscle pain. Neurological: denied headache, dizziness, numbness, tingling, weakness. Skin: denied rash, laceration, abrasion. *Physical Exam - Physical Exam Comments: 07/28/18 15:05 Constitutional: Well-nourished, Well-developed, appearing stated age. HEENT: head is normocephalic, atraumatic. EOMI. PERRLA. no scalp hematoma. no raccoon eyes. no davis sign. no tenderness to palpation of facial bones bilaterally. Neck: supple. Full ROM. no midline c-spine tenderness to palpation. Heart: regular rhythm. no murmurs, rubs or gallops. Lungs: clear to auscultation bilaterally. no crackles, rhonchi or wheezing. no stridor. Abdomen: soft, nontender. normal bowel sounds. no rebound, guarding, masses. Right LE: knee flexed, pain with extension or further flexion. no pain to palpation of right knee. no swelling of right knee. no overlying erythema or rash to right knee. anterior drawer test negative. posterior drawer test positive for pain, negative for laxity. valgus and varus testing negative. DSP 2 +. no cyanosis or duskiness to RLE toes. good capillary refill. Hips: no pain to palpation of bilateral hips. Left LE shortened and externally rotated. Back: no midline T-spine or L-spine tenderness to palpation. Extremities: peripheral pulses intact and symmetrical. no lower extremity edema. Neurological: CN 2-12 grossly intact. moves all four extremities. Psych: awake, alert, oriented x3. follows commands. answers questions appropriately. Medical Decision Making - Medical Decision Making 07/28/18 15:05 73 year old female with above PMH presented to ED for right knee pain x2 days after fall onto right knee. Physical examination revealed LLE shortened and externally rotated. Initial Vital Signs Temp Pulse Resp BP Pulse Ox 98.3 F 81 17 148/91 95 07/28/18 15:05 07/28/18 15:05 07/28/18 15:05 07/28/18 15:05 07/28/18 15:05 Afebrile. No tachycardia. No tachypnea. Mild hypertension. No hypoxia on room air. Labs ordered: none Imaging ordered: pelvis XR, right knee XR Medications ordered: Tylenol 975 mg PO once 07/28/18 16:51 Knee XR report: Right knee: Pain. Fall. 2 views of the right knee reveal extensive osteoarthritic changes, flabella, loose bodies but no sign of an acute fracture. Blastic or lytic changes are not seen. There is some anterior swelling. Since 09/01/2016, there is no change of an adverse nature. If symptoms persist, further imaging and orthopedic consultation may be of help. Reported By : Diallo Anne MD 07/28/18 [id number] Pelvis XR report: Pelvis: Fall. Pain. An AP view of the pelvis reveals no sign of fracture or subluxation and no sign of blastic or lytic changes. The SI joints are patent. There is a nonspecific bowel pattern. There is a urine filled bladder. If symptoms persist, further imaging may be of help. Impression : No acute pelvic pathology. Reported By: Diallo Anne MD 07/28/18 1648 07/28/18 17:01 Pt informed of results and need for follow up with PCP. Pt advised to follow up with ortho for arthritis. Pt ambulated well without assistance. GIORGI wrap placed on right knee for comfort. Pt discharged. *DC/Admit/Observation/Transfer Diagnosis at time of Disposition: Knee pain, Fall - Discharge Dispostion Disposition: [facility] Condition at time of disposition: Stable Decision to Admit order: No - Referrals Referrals: Jaswinder Maldonado [Primary Care Provider] - Kevin Murray DO [Staff Physician] - Jose J Vega DO [Staff Physician] - Yamil Lowe MD [Staff Physician] - Juan Carlos Corley MD [Staff Physician] - - Patient Instructions Additional Instructions: You were seen today for knee pain. Your knee XRay was normal, there was no fracture. Your pelvis XRay was normal, there was no fracture or dislocation. Use the GIORGI wrap for compression and pain relief. Take Tylenol 1000 mg every 8 hours as needed for pain. Buy over the counter. Follow up with your primary care doctor within 3 days. Your care is not complete until you follow up. Follow up with an Orthopedic doctor within 7 days regarding your knee arthritis. Your care is not complete until you follow up. I have provided you with multiple referrals should you need them. Return to the Emergency Department for increasing pain despite Tylenol use, fever, inability to walk, chest pain, shortness of breath, vomiting or any other new, worsening or concerning symptoms. - Post Discharge Activity
[2018-07-28] MEDS ORDERED: ACETAMINOPHEN 325 MG TABLET (FP) PO ONE (15:11)
[2018-07-28 15:21] VITALS: BMI 33.6
[2018-07-28] MEDS ORDERED: ACETAMINOPHEN 325 MG TABLET (FP) ONE (15:30)
--- NOTE | 2018-07-28 17:26 | PDOC ---
Documentation entered by Bo Gregory SCRIBE, acting as scribe for Ho Thakkar MD. Ho Thakkar MD: This documentation has been prepared by the [employer]irvannie, SCRIBE, under my direction and personally reviewed by me in its entirety. I confirm that the documentation accurately reflects all work, treatment, procedures, and medical decision making performed by me. Attending Attestation - Resident Resident Name: Patrica Davies - ED Attending Attestation I have performed the following: I have examined & evaluated the patient, The case was reviewed & discussed with the resident, I agree w/resident's findings & plan, Exceptions are as noted - HPI HPI: 07/28/18 16:37 The patient is a 73 year old female, with a significant past medical history of HTN, HLD, COPD, asthma, anemia, hypothyroidism, GERD, seizure disorder, Parkinsons, syncope, who presents to the emergency department with 2 days of right knee pain. As per patient, she was closing a window at which time she lost her balance and subsequently fell on her right knee. Patient was able to ambulate s/p fall but, endorses pain to the knee. She denies any LOC or head/neck trauma. She denies recent fevers, chills, headache or dizziness. She denies recent nausea, vomit, diarrhea or constipation. She denies recent dysuria, frequency, urgency or hematuria. She denies recent chest pain or shortness of breath. Denies other injury. Allergies: Morphine, Penicillins, chocolate Primary Care Physician: Dr. Maldonado - Physicial Exam PE: 07/28/18 16:37 Agree with resident exam. RLE neurovasc intact, 2+ peripheral pulses, no patellar ttp, +edema noted to suprapatellar area - Medical Decision Making 07/28/18 17:25 73yo F presents to the ED with R knee pain after fall directly onto her R knee 2 days ago No other injuries Low suspicion for fracture as pt is ambulatory, no patellar ttp XR negative for fracture Pain well controlled Pt clinically stable for DC home
[2018-07-28 18:24] VITALS: BP 152/58; PULSE 88; TEMP 98.4
== END 2018-07-28 21:55 ==
LOC: JER 14:47
DX: M25.561 Pain in right knee (principal); W18.39XA Other fall on same level, initial encounter; Y93.89 Activity, other specified; Y92.89 Other specified places as the place of occurrence of the external cause; K21.9 Gastro-esophageal reflux disease without esophagitis; J44.9 Chronic obstructive pulmonary disease, unspecified; I10 Essential (primary) hypertension; E07.9 Disorder of thyroid, unspecified; E78.00 Pure hypercholesterolemia, unspecified; E78.5 Hyperlipidemia, unspecified
CPT/HCPCS: 72170-TC-FY; 73560-TC-RT-FY; 99282-25

== ENCOUNTER 2019-04-04 13:46 | Emergency (ER) | payer OTHER ==
[2019-04-04] MEDS ORDERED: SODIUM CHLORIDE 1,000 ML IV STA (14:20)
[2019-04-04] MEDS ORDERED: ONDANSETRON 4 MG/2 ML VIAL IVPUSH ONE (14:20)
[2019-04-04] MEDS ORDERED: ONDANSETRON 4 MG/2 ML VIAL ONE (14:49)
--- NOTE | 2019-04-04 14:57 | PDOC ---
History of Present Illness - General Chief Complaint: Weakness Stated Complaint: VOMITING WEAKNESS History Source: Patient Exam Limitations: No Limitations - History of Present Illness Initial Comments: 04/04/19 14:21 73 yo female pmh HTN, HLD, COPD, asthma, anemia, hypothyroidism, GERD, seizure disorder and parkinsons presents to the ED from [facility] living facility for 3 days of non bloody, non bilious vomiting, diarrhea and epigastric pain. Pt states multiple residents at the assisted facility have similar symptoms. Denies recent travel, F/C, CP, SOB, back pain, changes in urinary habits Past History - Past Medical History Allergies/Adverse Reactions: Allergies Allergy/AdvReac Type Severity Reaction Status Date / Time morphine Allergy Unknown Verified 04/04/19 13:50 Penicillins Allergy Unknown Verified 04/04/19 13:50 chocolate Allergy Unknown Uncoded 04/04/19 13:50 Home Medications: Ambulatory Orders Albuterol Sulfate Inhaler - [Ventolin Hfa Inhaler -] 1 - 2 inh PO QID 06/11/18 Alendronate Sodium/Vitamin D3 [Fosamax Plus D 70 mg-5,600 Iu vIT d] 1 each PO Q7D 06/11/18 Aripiprazole [Abilify] 5 mg PO DAILY 06/11/18 Aspirin 81 mg PO DAILY 06/11/18 Atorvastatin Ca [Lipitor] 20 mg PO HS 06/11/18 Clopidogrel Bisulfate [Plavix] 75 mg PO DAILY 06/11/18 Cyclobenzaprine HCl [Flexeril -] 10 mg PO TID 06/11/18 Ferrous Sulfate [Feosol] 325 mg PO DAILY 06/11/18 Levothyroxine [Synthroid -] 25 mcg PO DAILY 06/11/18 Pantoprazole Sodium [Protonix -] 20 mg PO DAILY 06/11/18 Risperidone [Risperdal] 1 mg PO BID 06/11/18 Solifenacin Succinate [Vesicare -] 10 mg PO DAILY 06/11/18 Tiotropium [place] [Spiriva] 1 inh PO DAILY 06/11/18 Amlodipine Besylate 5 mg PO DAILY 07/28/18 Docusate Sodium 200 mg PO HS 07/28/18 Fluticasone Prop 0.05% Nasal [Flonase -] 1 spray NS BID 07/28/18 Montelukast Sodium [Singulair] 10 mg PO DAILY 07/28/18 Anemia: Yes Asthma: Yes Cancer: No Cardiac Disorders: (hx of chest pain) CVA: No COPD: Yes (PT STATED) CHF: No DVT: No Dementia: No Diabetes: No GI Disorders: Yes (GERD) Disorders: Yes (incontinence) HTN: Yes Hypercholesterolemia: Yes Liver Disease: No Psychiatric Problems: Yes (BiPolar) Seizures: Yes Thyroid Disease: Yes (HYPO.) - Surgical History Abdominal Surgery: No Appendectomy: No Cardiac Surgery: No Cholecystectomy: No Lung Surgery: No Neurologic Surgery: No Orthopedic Surgery: No - Immunization History Td Vaccination: (unknown) Immunization Up to Date: No - Psycho Social/Smoking Cessation Hx Smoking Status: No Smoking History: Never smoked Years of Tobacco Use: 0 Have you smoked in the past 12 months: No Number of Cigarettes Smoked Daily: 0 Cigars Per Day: 0 Hx Alcohol Use: No Drug/Substance Use Hx: No Substance Use Type: None Hx Substance Use Treatment: No Review of Systems - Review of Systems Constitutional: Yes: See HPI HEENTM: Yes: See HPI Respiratory: Yes: See HPI Cardiac (ROS): Yes: See HPI ABD/GI: Yes: See HPI : Yes: See HPI Musculoskeletal: Yes: See HPI Integumentary: Yes: See HPI Neurological: Yes: See HPI *Physical Exam - Physical Exam General Appearance: Yes: Nourished, Appropriately Dressed. No: Apparent Distress HEENT: positive: EOMI Neck: positive: Supple. negative: Carotid bruit Respiratory/Chest: positive: Lungs Clear, Normal Breath Sounds. negative: Respiratory Distress, Accessory Muscle Use, Crackles, Rales, Rhonchi, Stridor, Wheezing Cardiovascular: positive: Regular Rhythm, Regular Rate, S1, S2. negative: Edema , JVD, Murmur Vascular Pulses: Dorsalis-Pedis (R): 4+, Doralis-Pedis (L): 4+ Gastrointestinal/Abdominal: positive: Flat, Soft, Tenderness (diffuse). negative: Pulsatile Mass, Distended, Guarding, Rebound Musculoskeletal: positive: Normal Inspection. negative: CVA Tenderness Extremity: positive: Normal Capillary Refill, Normal Inspection, Normal Range of Motion Integumentary: positive: Normal Color, Dry, Warm Neurologic: positive: Fully Oriented, Alert, Normal Mood/Affect, Normal Response ED Treatment Course - LABORATORY CBC & Chemistry Diagram: 04/04/19 14:03 04/04/19 14:03 - RADIOLOGY Radiology Studies Ordered: Category Date Time Status CHEST X-RAY PORTABLE* [RAD] Stat Radiology 04/04/19 14:19 Ordered Medical Decision Making - Medical Decision Making 04/04/19 19:26 73 yo female pmh HTN, HLD, COPD, asthma, anemia, hypothyroidism, GERD, seizure disorder and parkinsons presents to the ED from [facility] living facility for 3 days of non bloody, non bilious vomiting, diarrhea and epigastric pain. Pt states multiple residents at the assisted facility have similar symptoms. Denies recent travel, F/C, CP, SOB, back pain, changes in urinary habits vitals stable will do labs, fluids, zofran and CT abdomen/pel with contrast Labs WNL Pending CTAP and likely dispo home if negative S/O to night team Discharge - Discharge Information Problems reviewed: Yes Clinical Impression/Diagnosis: Abdominal pain, Vomiting Condition: Stable - Follow up/Referral Referrals: Jaswinder Maldonado [Primary Care Provider] - - Patient Discharge Instructions - Post Discharge Activity
[2019-04-04 14:59] VITALS: BMI 34.3
[2019-04-04 15:42] LABS: BASO % 0.6 % (0-2.0); EOS % 1.1 % (0-4.5); HEMATOCRIT 39.4 % (32.4-45.2); HEMOGLOBIN 13.2 GM/dL (10.7-15.3); LYMPH % 12.3 % (8-40); MCH 31.7 pg (25.7-33.7); MCHC 33.5 g/dl (32.0-36.0); MEAN CELL VOLUME 94.7 fl (80-96); MEAN PLT VOLUME 8.3 fl (7.5-11.1); MONO % 5.7 % (3.8-10.2); NEUT % 80.3 % (42.8-82.8); PLATELET COUNT 223 K/MM3 (134-434); RBC 4.16 M/mm3 (3.60-5.2); RDW 13.6 % (11.6-15.6); WHITE BLOOD COUNT 10.7 K/mm3 (4.0-10.0)
[2019-04-04 15:59] LABS: INR 0.99 (0.83-1.09); PROTHROMBIN TIME (PATIENT) 11.7 SEC (9.7-13.0)
--- NOTE | 2019-04-04 16:14 | PDOC ---
Documentation entered by Nila Tomas SCRIBE, acting as scribe for Jose J Canela MD. Jose J Canela MD: This documentation has been prepared by the Genoveva cates Xhesika, SCRIBE, under my direction and personally reviewed by me in its entirety. I confirm that the documentation accurately reflects all work, treatment, procedures, and medical decision making performed by me. Attending Attestation - Resident Resident Name: Derek Gutierrez - ED Attending Attestation I have performed the following: I have examined & evaluated the patient, The case was reviewed & discussed with the resident, I agree w/resident's findings & plan, Exceptions are as noted - HPI HPI: 04/04/19 16:02 The patient is a 73 year old female, with a significant past medical history of HTN, HLD, COPD, asthma, anemia, hypothyroidism, GERD, seizure disorder, Parkinsons who presents to the emergency department [facility] from [facility] with 3 days of nausea, nbnb vomiting, diarrhea and epigastric pain. The patient denies chest pain, shortness of breath, and dizziness. Denies fever , chills, cough, and constipation. Denies dysuria, frequency, urgency and hematuria. Allergies: Morphine, Penicillins, chocolate Primary Care Physician: Dr. Maldonado - Physicial Exam PE: 04/04/19 16:03 Vitals: Triage Vital signs reviewed General Appearance: no acute distress, well nourished well developed, Neck: Supple;No Nuchal rigidity Chest Wall: Nontender Cardiac: Regular rate and rhythm, no murmurs, no rubs, no gallops, Lungs: Clear to auscultation bilateral, good air movement bilaterally, Abdomen: +diffuse abdominal discomfort. Soft, nondistended, normal bowel sounds Extremities: Full range of motion to all extremities, no cyanosis, clubbing, or edema Skin: Warm and dry, no rashes or lesions, no petechiae - Medical Decision Making 04/04/19 16:41 73 years old with nausea vomiting diarrhea and diffuse abdominal pain on examination We will check labs CT abdomen pelvis Dr. Canseco to follow-up labs and imaging and reassess
[2019-04-04 16:17] LABS: ALBUMIN 4.1 g/dl (3.4-5.0); ALK PHOS 125 U/L (45-117); ANION GAP 10 MMOL/L (8-16); BILIRUBIN,TOTAL 0.4 mg/dL (0.2-1); BLOOD UREA NITROGEN 16.1 mg/dL (7-18); CHLORIDE 106 mmol/L (98-107); CO2 24 mmol/L (21-32); GLUCOSE,RANDOM 169 mg/dL (74-106); MAGNESIUM 2.2 mg/dL (1.8-2.4); POTASSIUM 3.8 mmol/L (3.5-5.1); SGOT/AST 11 U/L (15-37); SGPT/ALT 26 U/L (13-61); SODIUM 139 mmol/L (136-145); TOT PROT 6.6 g/dl (6.4-8.2)
[2019-04-04 17:02] VITALS: TEMP 98.4
[2019-04-04] MEDS ORDERED: MAG HYDROX/AL HYDROX/SIMETH 30 ML UNIT-DOSE CUP PO ONE (17:58)
[2019-04-04] MEDS ORDERED: MAG HYDROX/AL HYDROX/SIMETH 30 ML UNIT-DOSE CUP ONE (18:08)
[2019-04-04] MEDS ORDERED: ACETAMINOPHEN 1000 MG/100 ML VIAL (NON FORMULARY) IVPB ONE (18:42)
--- NOTE | 2019-04-04 19:06 | PDOC ---
*Physical Exam - Vital Signs Last Vital Signs Temp Pulse Resp BP Pulse Ox 98.4 F 68 16 124/57 L 94 L 04/04/19 16:58 04/04/19 16:58 04/04/19 16:58 04/04/19 16:58 04/04/19 14:56 - Physical Exam 04/04/19 19:06 73 year old female, with a significant past medical history of HTN, HLD, COPD, asthma, anemia, hypothyroidism, GERD, seizure disorder, Parkinsons who presents to the emergency department [facility] from [facility] with 3 days of N/V/D with epigastric pain. The patient was signed out to me by Dr. Gutierrez with pending CTAP with re- evaluation needed. ED Treatment Course - LABORATORY CBC & Chemistry Diagram: 04/04/19 14:03 04/04/19 14:03 - ADDITIONAL ORDERS Additional order review: Laboratory Results 04/04/19 04/04/19 04/04/19 16:53 14:03 14:03 PT with INR 11.70 INR 0.99 Sodium 139 Potassium 3.8 Chloride 106 Carbon Dioxide 24 Anion Gap 10 BUN 16.1 Creatinine 1.0 Est GFR (CKD-EPI)AfAm 65.18 Est GFR (CKD-EPI)NonAf 56.24 Random Glucose 169 H Lactic Acid 1.2 Calcium 9.0 Magnesium 2.2 Total Bilirubin 0.4 AST 11 L ALT 26 Alkaline Phosphatase 125 H Creatine Kinase 105 Troponin I < 0.02 Total Protein 6.6 Albumin 4.1 04/04/19 14:03 RBC 4.16 MCV 94.7 MCHC 33.5 RDW 13.6 MPV 8.3 Neutrophils % 80.3 D Lymphocytes % 12.3 D Monocytes % 5.7 Eosinophils % 1.1 Basophils % 0.6 - Medications Given in the ED: ED Medications Discontinued Medications Generic Name Dose Route Start Last Admin Trade Name Freq PRN Reason Stop Dose Admin Al Hydroxide/Mg Hydroxide 30 ml 04/04/19 17:58 04/04/19 18:11 Mylanta Oral Suspension - PO 04/04/19 17:59 30 ml ONCE ONE Administration Sodium Chloride 1,000 mls @ 1,000 mls/hr 04/04/19 14:20 04/04/19 14:55 Normal Saline - IV 04/04/19 15:19 1,000 mls/hr ASDIR STA Administration Ondansetron HCl 4 mg 04/04/19 14:20 04/04/19 14:56 Zofran Injection IVPUSH 04/04/19 14:21 4 mg ONCE ONE Administration Medical Decision Making - Medical Decision Making 04/04/19 20:46 Patient was re-evaluated. Abdominal pain resolved. No tenderness to palpation noted on physical exam. Patient states she has persistent weakness. Patient is known to have recurrent UTIs. Will obtain UA, Urine culture, and an additional 500 cc bolus of NS. Will await results. Laboratory Tests 04/04/19 04/04/19 04/04/19 14:03 14:03 14:03 WBC 10.7 H RBC 4.16 Hgb 13.2 Hct 39.4 MCV 94.7 MCH 31.7 MCHC 33.5 RDW 13.6 Plt Count 223 MPV 8.3 Absolute Neuts (auto) 8.6 H Neutrophils % 80.3 D Lymphocytes % 12.3 D Monocytes % 5.7 Eosinophils % 1.1 Basophils % 0.6 Nucleated RBC % 0 PT with INR 11.70 INR 0.99 Sodium 139 Potassium 3.8 Chloride 106 Carbon Dioxide 24 Anion Gap 10 BUN 16.1 Creatinine 1.0 Est GFR (CKD-EPI)AfAm 65.18 Est GFR (CKD-EPI)NonAf 56.24 Random Glucose 169 H Lactic Acid Calcium 9.0 Magnesium 2.2 Total Bilirubin 0.4 AST 11 L ALT 26 Alkaline Phosphatase 125 H Creatine Kinase 105 Troponin I < 0.02 Total Protein 6.6 Albumin 4.1 Urine Color Urine Appearance Urine pH Ur Specific [place] Urine Protein Urine Glucose (UA) Urine Ketones Urine Blood Urine Nitrite Urine Bilirubin Urine Urobilinogen Ur Leukocyte Esterase Urine WBC (Auto) Urine RBC (Auto) Urine Casts (Auto) U Epithel Cells (Auto) Urine Bacteria (Auto) 04/04/19 04/04/19 16:53 22:20 WBC RBC Hgb Hct MCV MCH MCHC RDW Plt Count MPV Absolute Neuts (auto) Neutrophils % Lymphocytes % Monocytes % Eosinophils % Basophils % Nucleated RBC % PT with INR INR Sodium Potassium Chloride Carbon Dioxide Anion Gap BUN Creatinine Est GFR (CKD-EPI)AfAm Est GFR (CKD-EPI)NonAf Random Glucose Lactic Acid 1.2 Calcium Magnesium Total Bilirubin AST ALT Alkaline Phosphatase Creatine Kinase Troponin I Total Protein Albumin Urine Color Yellow Urine Appearance Clear Urine pH 7.0 Ur Specific [place] 1.036 H Urine Protein Negative Urine Glucose (UA) Negative Urine Ketones Negative Urine Blood Negative Urine Nitrite Negative Urine Bilirubin Negative Urine Urobilinogen 0.2 Ur Leukocyte Esterase 1+ H Urine WBC (Auto) 24 Urine RBC (Auto) 3 Urine Casts (Auto) 1 U Epithel Cells (Auto) 2.0 Urine Bacteria (Auto) 15.5 Bactrim provded to patient due to positive UA likely indicating UTI. patient subjectively feels well and would like to be discharged back to [place] Patient to be discharged Discharge - Discharge Information Problems reviewed: Yes Clinical Impression/Diagnosis: Abdominal pain, Vomiting Condition: Stable Disposition: [facility] - Additional Discharge Information Prescriptions: Nitrofurantoin [place] [Nitrofurantoin] 100 mg PO BID #10 capsule - Follow up/Referral Referrals: Jaswinder Maldonado [Primary Care Provider] - - Patient Discharge Instructions Patient Printed Discharge Instructions: DI for Urinary Tract Infection (UTI) Additional Instructions: You were seen in the emergency department for the evaluation of your weakness. You were found to have an urinary tract infection. Please return to the emergency department if you have worsening symptoms or new concerning symptoms. Please follow up with Dr. Tavares within 1 week after discharge for follow up care and management. Please take the antibiotics as prescribed which is twice a day for 5 days. Thank you. - Post Discharge Activity
[2019-04-04] MEDS ORDERED: ACETAMINOPHEN INJECTION 100 ML IVPB ONE (19:08)
[2019-04-04] MEDS ORDERED: FAMOTIDINE 20 MG/50 ML IVPB 20 MG/50 ML MG IVPB ONE ×2 (19:17→21:07)
[2019-04-04] MEDS ORDERED: SODIUM CHLORIDE 500 ML IV STA (20:43)
[2019-04-04 22:44] LABS: HYALINE CASTS 1 /lpf (0-8); URINE APPEARANCE CLEAR; URINE BACTERIA 15.5 /hpf (NEGATIVE); URINE BILIRUBIN NEGATIVE (NEGATIVE); URINE COLOR YELLOW; URINE GLUCOSE (UA) NEGATIVE (NEGATIVE); URINE KETONE NEGATIVE (NEGATIVE); URINE LEUK ESTERASE 1+ (NEGATIVE); URINE NITRITE NEGATIVE (NEGATIVE); URINE PROTEIN NEGATIVE (NEGATIVE); URINE RBC 3 /hpf (0-4); URINE UROBILINOGEN 0.2 mg/dL (0.2-1.0); URINE WBC 24 /hpf (0-5)
[2019-04-05 01:25] VITALS: BP 139/58; PULSE 62
--- NOTE | 2019-04-05 09:41 | EKG ---
Test Reason : Blood Pressure : / mmHG Vent. Rate : 084 BPM Atrial Rate : 084 BPM P-R Int : 190 ms QRS Dur : 096 ms QT Int : 408 ms P-R-T Axes : 031 -03 090 degrees QTc Int : 482 ms NORMAL SINUS RHYTHM ANTERIOR INFARCT , AGE UNDETERMINED ABNORMAL ECG WHEN COMPARED WITH ECG OF 11-JUN-2018 17:43, ANTERIOR INFARCT IS NOW PRESENT Confirmed by Cameron Goldman MD ([id number]) on 04/05/2019 9:40:52 AM Referred By: Confirmed By:Cameron Goldman MD
== END 2019-04-05 00:50 ==
LOC: JER 13:46
PROC: 3E0337Z Introduction of Electrolytic and Water Balance Substance into Peripheral Vein, Percutaneous Approach (ICD-10-PCS; principal; 2019-04-04)
PROC: 3E033GC Introduction of Other Therapeutic Substance into Peripheral Vein, Percutaneous Approach (ICD-10-PCS; 2019-04-04)
PROC: 3E033NZ Introduction of Analgesics, Hypnotics, Sedatives into Peripheral Vein, Percutaneous Approach (ICD-10-PCS; 2019-04-04)
PROC: 3E033GC Introduction of Other Therapeutic Substance into Peripheral Vein, Percutaneous Approach (ICD-10-PCS; 2019-04-04)
DX: N39.0 Urinary tract infection, site not specified (principal); I10 Essential (primary) hypertension; E78.5 Hyperlipidemia, unspecified; J44.9 Chronic obstructive pulmonary disease, unspecified; D64.9 Anemia, unspecified; K21.9 Gastro-esophageal reflux disease without esophagitis; E03.9 Hypothyroidism, unspecified; G20 Parkinson's disease
CPT/HCPCS: 36415; 71045-TC-FY; 74177-TC; 80053; 81003; 82550; 83605; 83735; 84484; 85025; 85610; 87086; 93005; 93010; 96361; 96365; 96375; 99285-25; J0131; J7030; Q9967

== ENCOUNTER 2019-09-09 12:51 | Inpatient (IN) | payer OTHER ==
--- NOTE | 2019-09-09 13:02 | PDOC ---
History of Present Illness - General Stated Complaint: CHEST PAIN Time Seen by Provider: 09/09/19 13:02 - History of Present Illness Initial Comments: Pt is a 74yo F with a PMH HTN, HLD, COPD on home O2, GERD, arthritis hx of seizures, hx of medically managed SBO, who presents with chest pain. She comes from [facility] for leg weakness. Pt states that this pain began early this morning after eating breakfast. Says pain feels like "gripping" that radiates to L side and L arm; 10/10 in severity. Positional - worse with sitting up, improved laying down. Says that she had similar pain yesterday and was given nitroglycerin which has improved pain. States last bowel movement was yesterday, and was brown. A/w fatigue, weakness, dizziness, increased shortness of breath. PCP: Joel PMH: see above PSHx: denies All: NKDA Social: denies Past History - Medical History Allergies/Adverse Reactions: Allergies Allergy/AdvReac Type Severity Reaction Status Date / Time morphine Allergy Unknown Verified 04/04/19 13:50 Penicillins Allergy Unknown Verified 04/04/19 13:50 chocolate Allergy Unknown Uncoded 04/04/19 13:50 Home Medications: Ambulatory Orders Albuterol Sulfate Inhaler - [Ventolin HFA Inhaler -] 1 - 2 inh PO QID 06/11/18 Alendronate Sodium/Vitamin D3 [Fosamax Plus D 70 mg-5,600 Iu vIT d] 70 mg PO Q7D 06/11/18 Aripiprazole [Abilify] 5 mg PO DAILY 06/11/18 Aspirin 81 mg PO DAILY 06/11/18 Clopidogrel Bisulfate [Plavix] 75 mg PO DAILY 06/11/18 Cyclobenzaprine HCl [Flexeril -] 10 mg PO TID 06/11/18 Ferrous Sulfate [Feosol] 325 mg PO DAILY 06/11/18 Levothyroxine [Synthroid -] 25 mcg PO DAILY 06/11/18 Pantoprazole Sodium [Protonix -] 20 mg PO DAILY 06/11/18 Risperidone [Risperdal] 1 mg PO BID 06/11/18 Solifenacin Succinate [Vesicare -] 10 mg PO DAILY 06/11/18 Tiotropium [place] [Spiriva] 1 inh PO DAILY 06/11/18 Amlodipine Besylate 5 mg PO DAILY 07/28/18 Docusate Sodium 200 mg PO HS 07/28/18 Fluticasone Prop 0.05% Nasal [Flonase -] 1 spray NS BID 07/28/18 Montelukast Sodium [Singulair] 10 mg PO DAILY 07/28/18 Acetaminophen [Tylenol] 650 mg PO PRN PRN 06/15/19 Atorvastatin Calcium 20 mg PO HS 06/15/19 Docusate Sodium [Colace] 100 mg PO HS 06/15/19 Fluticasone/Vilanterol [Breo Ellipta 200-25 Mcg INH] 1 each IH DAILY 06/15/19 Diclofenac Potassium 50 mg PO DAILY 06/16/19 Sennosides [Senna -] 1 tab PO BID #30 tablet 06/25/19 Polyethylene Glycol 3350 [Miralax 119 gm Btl -] 17 gm PO DAILY 30 Days #1 bottle 06/27/19 Simethicone [Mylicon -] 80 mg PO Q4H PRN #30 tab.chew 06/27/19 Anemia: Yes Asthma: Yes Cancer: No Cardiac Disorders: (hx of chest pain) CVA: No COPD: Yes (PT STATED) CHF: No DVT: No Dementia: No Diabetes: No GI Disorders: Yes (GERD) Disorders: Yes (incontinence) HTN: Yes Hypercholesterolemia: Yes Liver Disease: No Psychiatric Problems: Yes (BiPolar) Seizures: Yes Thyroid Disease: Yes (HYPO.) - Surgical History Abdominal Surgery: No Appendectomy: No Cardiac Surgery: No Cholecystectomy: No Lung Surgery: No Neurologic Surgery: No Orthopedic Surgery: No - Immunization History Td Vaccination: (unknown) Immunization Up to Date: No - Psycho-Social/Smoking History Smoking Status: No Smoking History: Never smoked Years of Tobacco Use: 0 Have you smoked in the past 12 months: No Number of Cigarettes Smoked Daily: 0 Cigars Per Day: 0 Review of Systems - Review of Systems Comments:: CONSTITUTIONAL:reports generalized weakness, denies fever, chills, diaphoresis, loss of appetite HEENT:denies rhinorrhea, nasal congestion, sore throat, ear pain, eye pain, visual Changes CARDIOVASCULAR:reports chest pain, denies syncope, palpitations RESPIRATORY:reports cough, shortness of breath, denies wheezing, hemoptysis GASTROINTESTINAL: reports abdominal pain, denies nausea, vomiting, diarrhea, constipation, melena, hematochezia GENITOURINARY:reports increased frequency; denies dysuria, urgency, hesitancy, hematuria, flank pain HEMATOLOGIC/IMMUNOLOGIC:denies easy bleeding, easy bruising ENDOCRINE: denies unexplained weight gain, unexplained weight loss NEUROLOGIC:reports headache, dizziness, bladder incontinence (chronic), denies loss of consciousness, mental status changes, bowel incontinence *Physical Exam - Physical Exam General: awake, alert, fully oriented, in mild distress, on 3L O2 Head: normocephalic, atraumatic Eyes: PERRL, EOMI, anicteric sclera, conjunctiva clear ENT: hearing grossly normal, oropharynx clear without exudates. No nasal congestion Moist mucous membranes Lung: equal breath sounds b/l, CTA b/l, no crackles, wheezes Heart: RRR, normal S1, S2, no murmurs, rubs, gallops Abdomen: soft, TTP to all quadrants, normoactive bowel sounds, no guarding, rebound, masses Extremities: no edema, no erythema or tenderness, DP/PT pulses 2+ and symmetric, no clubbing, cyanosis Neuro: CN2-12 grossly intact, moves all extremities, normal speech, sensation in tact Skin: warm, dry, no rashes or lesions noted Heart Score/ECG Review - History History: Moderately suspicious - Electrocardiogram EKG: Normal - Age Age: >/= 65 - Risk Factors Risk Factors Heart Score: Yes Hx Hypercholesterolemia, Yes Hx Hypertension, Yes Hx Obesity Based on the list above the patient has:: >/=3 risk factors or Hx atherosclerotic disease - Troponin Troponin: </= normal limit - Score Heart Score - Total: 5 ED Treatment Course - LABORATORY CBC & Chemistry Diagram: 09/10/19 06:08 09/10/19 06:08 Medical Decision Making - Medical Decision Making Pt is a 74yo F with PMH HTN, HLD, COPD on home O2, GERD, arthritis hx of seizures, hx of medically managed SBO, who presents with chest/epigastric pain Vital Signs Period Temp Pulse Resp BP Sys/Lin Pulse Ox Last 24 Hr 97.6 F 55 20 136/87 100 DDx: ACS, Peptic ulcer, SBO Plan: labs, EKG, pain control, GI meds HEART Score - 4 CXR: no acute chest pathology EKG: HR 59bpm, sinus bradycardia, QRS 88ms, QTc 439ms, no ST changes as compared to previous Given Maalox, Pepcid, Viscous Lido, and Tylenol 09/09/19 16:01 Pt continues to report abdominal/chest pain after GI cocktail Labs WNL -> CT a/p with contrast ordered Labs: leukocytosis, no anemia, electrolytes WNL, no BOGDAN, troponin not elevated Laboratory Tests 09/09/19 09/09/19 09/09/19 14:39 14:39 14:39 WBC 11.4 H RBC 4.01 Hgb 12.4 Hct 37.7 MCV 94.0 MCH 30.8 MCHC 32.8 RDW 13.6 Plt Count 241 MPV 8.3 Absolute Neuts (auto) 8.4 H Neutrophils % 73.7 Lymphocytes % 17.2 Monocytes % 6.4 Eosinophils % 2.1 Basophils % 0.6 Nucleated RBC % 0 PT with INR 12.90 INR 1.09 Sodium Potassium Chloride Carbon Dioxide Anion Gap BUN Creatinine Est GFR (CKD-EPI)AfAm Est GFR (CKD-EPI)NonAf Random Glucose Calcium Total Bilirubin AST ALT Alkaline Phosphatase Troponin I < 0.02 Total Protein Albumin Lipase 54 L 09/09/19 14:39 WBC RBC Hgb Hct MCV MCH MCHC RDW Plt Count MPV Absolute Neuts (auto) Neutrophils % Lymphocytes % Monocytes % Eosinophils % Basophils % Nucleated RBC % PT with INR INR Sodium 140 Potassium 4.4 Chloride 108 H Carbon Dioxide 28 Anion Gap 4 L BUN 19.1 H Creatinine 0.8 Est GFR (CKD-EPI)AfAm 84.77 Est GFR (CKD-EPI)NonAf 73.14 Random Glucose 113 H Calcium 9.0 Total Bilirubin 0.3 AST 7 L ALT 16 Alkaline Phosphatase 109 Troponin I Total Protein 5.8 L Albumin 3.3 L Lipase 09/09/19 18:26 CT A/P The lung bases are clear. The liver, spleen, pancreas, adrenal glands and kidneys demonstrate no significant abnormalities. There is no evidence of intra- abdominal or retroperitoneal lymphadenopathy or fluid collections. There is no evidence of pneumoperitoneum, bowel obstruction or intra-abdominal abscess. There is no CT evidence of acute appendicitis or diverticulitis. Examination of the pelvis demonstrates no evidence of pelvic masses, fluid collections or lymphadenopathy. The uterus is unremarkable. The urinary bladder is somewhat distended. There is no evidence of acute bony pathology. IMPRESSION: No evidence of acute pathology within the abdomen or pelvis. 09/09/19 19:06 UA: -LE, -nitrites Continues to report chest pain, given 324mg ASA. Disposition Admit to tele obs Discharge - Discharge Information Problems reviewed: Yes Clinical Impression/Diagnosis: Epigastric pain, Chest pain Condition: Guarded - Admission Yes - Follow up/Referral - Patient Discharge Instructions - Post Discharge Activity
[2019-09-09] MEDS ORDERED: FAMOTIDINE 20 MG/50 ML IVPB 20 MG/50 ML MG IVPB ONE ×2 (13:39→14:40)
[2019-09-09] MEDS ORDERED: MAG HYDROX/AL HYDROX/SIMETH -MYLANTA- ORAL SUSPENSION PO ONE (13:39)
[2019-09-09] MEDS ORDERED: LIDOCAINE VISCOUS 2% ORAL/TOP 20 ML UNIT-DOSE CUP MM ONE (13:39)
[2019-09-09] MEDS ORDERED: ACETAMINOPHEN 1000 MG/100 ML VIAL (NON FORMULARY) IVPB ONE (13:41)
--- NOTE | 2019-09-09 14:36 | PDOC ---
Documentation entered by Bo Gregory SCRIBE, acting as scribe for Terra Back MD. Terra Back MD: This documentation has been prepared by the Bri cates Nirvannie, SCRIBE, under my direction and personally reviewed by me in its entirety. I confirm that the documentation accurately reflects all work, treatment, procedures, and medical decision making performed by me. Attending Attestation - Resident Resident Name: OspinaMargret - ED Attending Attestation I have performed the following: I have examined & evaluated the patient, The case was reviewed & discussed with the resident, I agree w/resident's findings & plan, Exceptions are as noted - HPI HPI: 09/09/19 13:40 The patient is a 74 year old female with a significant past medical history of HTN, HLD, COPD, asthma, anemia, hypothyroidism, GERD, seizure disorder, and Parkinson's Disease who presents to the ED via EMS from [facility] with 2 days of intermittent, positional chest pain. Patient describes todays episode as a 10/10 midsternal pain with radiation to the left side of the chest and arm associated with increased shortness of breath (short of breath at baseline) after breakfast (ate sausage and eggs). She notes similar symptoms yesterday which resolved after nitroglycerin. Additionally, the patient admits to several days of dizziness. Of note, patient is currently admitted to rehab for lower extremity weakness. Allergies: Morphine, PCN, chocolate - Physicial Exam PE: 09/09/19 14:35 GENERAL: elderly, wearing face won, nontoxic-appearing, no distress, answers simple questions appropriately, obese HEENT: PERRLA, EOMI, moist mucous membranes NECK/BACK: no midline ttp, no spinal stepoff or deformity, no hematoma, full ROM, neck supple CARDIOVASCULAR: regular rate/rhythm, no MGR, strong peripheral pulses, capillary refill <2 seconds, extremities wwp, no edema LUNGS/RESPIRATORY: no respiratory distress, CTAB GI/ABDOMEN: abdomen obese, protuberant but nondistended and still soft, symmetric [id number], normoactive BS, mild diffuse abdominal tenderness as evidenced by wincing with palpation of every quadrant however there does not appear to be a focale of increased tenderness, no midline pulsatile masses : no CVA tenderness MSK/EXTREMITIES: no acute-appearing muscle atrophy, no acute deformity DERM/SKIN: warm and dry, no pallor, no jaundice, no rash, no pathologic- appearing bruising, no skin breakdown, no cuts, no lesions NEUROLOGICAL: GCS 15, CN II-XII grossly intact, 5/5 strength proximally and distally, no facial droop - Medical Decision Making 09/09/19 14:28 [id number] p/w lower chest/upper epigastric pain since this morning. Initial Vital Signs Temp Pulse Resp BP Pulse Ox 97.6 F 55 L 20 136/87 100 09/09/19 13:09 09/09/19 13:09 09/09/19 13:09 09/09/19 13:09 09/09/19 13:09 DDX IBNLT: Initially considering epigastric pain as primary locus of discomfort, as she does seem to have vague or migrating abdominal discomfort which occasionally is worse in epigastrium. Considered are gastritis, PUD, biliary colic, cholecystitis/choledocholithiasis, pancreatitis, SBO, colitis, diverticulitis, gas, constipation, etc. Also considered are causes of substernal chest pain e.g. ACS, pericarditis, esophagitis (e.g. pill esophagitis), PNA/bronchitis, etc. Very unlikely but also considered for any epigastric/substernal discomfort is aortic pathology (however patient is not significantly hypertensive and has no neurologic symptoms and no ripping/tearing nature and thus this does not fit her clinical picture). W/U ordered: Labs as noted below, EKG, CXR, CT abdomen/pelvis with IV contrast pending BUN/Cr levels. TX ordered: Pepcid, Maalox, Viscous lidocaine, Ofirmev 09/09/19 15:21 CXR: Nothing acute Laboratory Tests 09/09/19 09/09/19 09/09/19 14:39 14:39 14:39 WBC 11.4 H RBC 4.01 Hgb 12.4 Hct 37.7 MCV 94.0 MCH 30.8 MCHC 32.8 RDW 13.6 Plt Count 241 MPV 8.3 Absolute Neuts (auto) 8.4 H Neutrophils % 73.7 Lymphocytes % 17.2 Monocytes % 6.4 Eosinophils % 2.1 Basophils % 0.6 Nucleated RBC % 0 PT with INR 12.90 INR 1.09 Sodium Potassium Chloride Carbon Dioxide Anion Gap BUN Creatinine Est GFR (CKD-EPI)AfAm Est GFR (CKD-EPI)NonAf Random Glucose Calcium Total Bilirubin AST ALT Alkaline Phosphatase Troponin I < 0.02 Total Protein Albumin Lipase 54 L Urine Color Urine Appearance Urine pH Ur Specific [place] Urine Protein Urine Glucose (UA) Urine Ketones Urine Blood Urine Nitrite Urine Bilirubin Urine Urobilinogen Ur Leukocyte Esterase 09/09/19 09/09/19 14:39 18:30 WBC RBC Hgb Hct MCV MCH MCHC RDW Plt Count MPV Absolute Neuts (auto) Neutrophils % Lymphocytes % Monocytes % Eosinophils % Basophils % Nucleated RBC % PT with INR INR Sodium 140 Potassium 4.4 Chloride 108 H Carbon Dioxide 28 Anion Gap 4 L BUN 19.1 H Creatinine 0.8 Est GFR (CKD-EPI)AfAm 84.77 Est GFR (CKD-EPI)NonAf 73.14 Random Glucose 113 H Calcium 9.0 Total Bilirubin 0.3 AST 7 L ALT 16 Alkaline Phosphatase 109 Troponin I Total Protein 5.8 L Albumin 3.3 L Lipase Urine Color Yellow Urine Appearance Clear Urine pH 6.5 Ur Specific [place] 1.024 Urine Protein Negative Urine Glucose (UA) Negative Urine Ketones Negative Urine Blood Negative Urine Nitrite Negative Urine Bilirubin Negative Urine Urobilinogen 0.2 Ur Leukocyte Esterase Negative CT abdomen/pelvis with IV contrast pending, resident will admit the patient given elevated HEART score, whether or not abdominal pain resolves. Heart Score/ECG Review - History History: Moderately suspicious - Electrocardiogram EKG: Normal - Age Age: >/= 65 - Risk Factors Risk Factors Heart Score: Yes Hx Hypercholesterolemia, Yes Hx Hypertension, Yes Hx Obesity Based on the list above the patient has:: >/=3 risk factors or Hx atherosclerotic disease - Troponin Troponin: </= normal limit - Score Heart Score - Total: 5 #1 09/09/19 13:11 Sinus rhythm, rate 59, normal axis and intervals, no ischemic ST-T changes, low QRS voltages likely d/t body habitus Discharge - Discharge Information Problems reviewed: Yes Clinical Impression/Diagnosis: Epigastric pain, Chest pain Condition: Guarded - Admission Yes - Follow up/Referral - Patient Discharge Instructions - Post Discharge Activity
[2019-09-09] MEDS ORDERED: LIDOCAINE VISCOUS 2% ORAL/TOP 20 ML UNIT-DOSE CUP ONE (14:40)
[2019-09-09] MEDS ORDERED: ACETAMINOPHEN INJECTION 100 ML IVPB ONE (14:40)
[2019-09-09] MEDS ORDERED: MAG HYDROX/AL HYDROX/SIMETH 30 ML UNIT-DOSE CUP ONE (14:40)
[2019-09-09 14:54] LABS: BASO % 0.6 % (0-2.0); EOS % 2.1 % (0-4.5); HEMATOCRIT 37.7 % (32.4-45.2); HEMOGLOBIN 12.4 GM/dL (10.7-15.3); LYMPH % 17.2 % (8-40); MCH 30.8 pg (25.7-33.7); MCHC 32.8 g/dl (32.0-36.0); MEAN PLT VOLUME 8.3 fl (7.5-11.1); MONO % 6.4 % (3.8-10.2); NEUT % 73.7 % (42.8-82.8); PLATELET COUNT 241 K/MM3 (134-434); RBC 4.01 M/mm3 (3.60-5.2); RDW 13.6 % (11.6-15.6); WHITE BLOOD COUNT 11.4 K/mm3 (4.0-10.0)
[2019-09-09 15:00] LABS: INR 1.09 (0.83-1.09); PROTHROMBIN TIME (PATIENT) 12.9 SEC (9.7-13.0)
[2019-09-09 15:31] LABS: LIPASE 54 U/L (73-393)
[2019-09-09 15:34] LABS: ALBUMIN 3.3 g/dl (3.4-5.0); BILIRUBIN,TOTAL 0.3 mg/dL (0.2-1); BLOOD UREA NITROGEN 19.1 mg/dL (7-18); CREATININE 0.8 mg/dL (0.55-1.3); POTASSIUM 4.4 mmol/L (3.5-5.1); TOT PROT 5.8 g/dl (6.4-8.2)
[2019-09-09 19:04] LABS: PH,URINE 6.5 (5.0-8.0); URINE APPEARANCE CLEAR; URINE BILIRUBIN NEGATIVE (NEGATIVE); URINE COLOR YELLOW; URINE GLUCOSE (UA) NEGATIVE (NEGATIVE); URINE KETONE NEGATIVE (NEGATIVE); URINE LEUK ESTERASE NEGATIVE (NEGATIVE); URINE NITRITE NEGATIVE (NEGATIVE); URINE PROTEIN NEGATIVE (NEGATIVE); URINE UROBILINOGEN 0.2 mg/dL (0.2-1.0)
[2019-09-09] MEDS ORDERED: ASPIRIN 81 MG CHEWABLE TABLETS PO ONE ×2 (19:17→21:09)
--- NOTE | 2019-09-09 19:30 | PN ---
Teaching Attending Note Name of Resident: Kylie Antunez ATTENDING PHYSICIAN STATEMENT I saw and evaluated the patient. I reviewed the resident's note and discussed the case with the resident. I agree with the resident's findings and plan as documented. SUBJECTIVE: Patient is a 74 year old woman with a PMH of Bipolar disorder, Penicillin allergy, HTN, HLD, COPD (on Home O2), Asthma, Anemia, Hypothyroidism, GERD, Seizure disorder and Parkinson's disease who presents to the ER via EMS from [facility] with 2 days of intermittent, positional chest pain. Patient describes todays episode as a 10/10, midsternal pain with radiation to the left side of the chest and arm associated with increased shortness of breath (short of breath at baseline) after breakfast (ate sausage and eggs). She notes similar symptoms yesterday which resolved after Nitroglycerin. Additionally, the patient admits to several days of dizziness. Of note, patient is currently admitted to Rehab for lower extremity weakness. Patient denies abdominal pain, headache, palpitations, dizziness, fever, chills, nausea, vomiting, diarrhea, constipation, dysuria, frequency, urgency, melena, hematochezia or hematuria. Denies alcohol, tobacco or illicit drug use. No sick contacts or recent travels. Family history is unremarkable. OBJECTIVE: Alert Vital Signs Period Temp Pulse Resp BP Sys/Lin Pulse Ox Last 24 Hr 97.6 F 55 20 136/87 100 HEENT: No Jaundice, eye redness or discharge, PERRLA, EOMI. Normocephalic, atraumatic. External ears are normal and hearing is grossly intact. No nasal discharge. Neck: Supple, nontender. No palpable adenopathy or thyromegaly. No JVD Chest: Good effort. Clear to auscultation and percussion. Heart: Regular. No S3, rub or murmur Abdomen: Not distended, soft, nontender and no HSM. No rebound or guarding. Normal bowel sounds. Ext: Peripheral pulses intact. No leg edema. Skin: Warm and dry. No petechiae, rash or ecchymosis. Neuro: Alert. Oriented x3. CN 2-12 grossly intact. Sensation grossly intact in all four extremities and DTR are symmetric. Psych: Appropriate mood and affect. Good insight. Home Medications Medication Instructions Recorded Albuterol Sulfate Inhaler - 1 - 2 inh PO QID 06/11/18 [Ventolin HFA Inhaler -] Alendronate Sodium/Vitamin D3 70 mg PO Q7D 06/11/18 [Fosamax Plus D 70 mg-5,600 Iu vIT d] Aripiprazole [Abilify] 5 mg PO DAILY 06/11/18 Aspirin 81 mg PO DAILY 06/11/18 Clopidogrel Bisulfate [Plavix] 75 mg PO DAILY 06/11/18 Cyclobenzaprine HCl [Flexeril -] 10 mg PO TID 06/11/18 Ferrous Sulfate [Feosol] 325 mg PO DAILY 06/11/18 Levothyroxine [Synthroid -] 25 mcg PO DAILY 06/11/18 Pantoprazole Sodium [Protonix -] 20 mg PO DAILY 06/11/18 Risperidone [Risperdal] 1 mg PO BID 06/11/18 Solifenacin Succinate [Vesicare -] 10 mg PO DAILY 06/11/18 Tiotropium [place] [Spiriva] 1 inh PO DAILY 06/11/18 Amlodipine Besylate 5 mg PO DAILY 07/28/18 Docusate Sodium 200 mg PO HS 07/28/18 Fluticasone Prop 0.05% Nasal 1 spray NS BID 07/28/18 [Flonase -] Montelukast Sodium [Singulair] 10 mg PO DAILY 07/28/18 Acetaminophen [Tylenol] 650 mg PO PRN PRN 06/15/19 Atorvastatin Calcium 20 mg PO HS 06/15/19 Docusate Sodium [Colace] 100 mg PO HS 06/15/19 Fluticasone/Vilanterol [Breo 1 each IH DAILY 06/15/19 Ellipta 200-25 Mcg INH] Diclofenac Potassium 50 mg PO DAILY 06/16/19 Sennosides [Senna -] 1 tab PO BID #30 tablet 06/25/19 Polyethylene Glycol 3350 [Miralax 17 gm PO DAILY 30 Days #1 bottle 06/27/19 119 gm Btl -] Simethicone [Mylicon -] 80 mg PO Q4H PRN #30 tab.chew 06/27/19 Abnormal Lab Results 09/09/19 09/09/19 09/09/19 14:39 14:39 14:39 WBC 11.4 H Absolute Neuts (auto) 8.4 H Chloride 108 H Anion Gap 4 L BUN 19.1 H Random Glucose 113 H AST 7 L Total Protein 5.8 L Albumin 3.3 L Lipase 54 L Current Medications Generic Name Dose Route Start Last Admin Trade Name Freq PRN Reason Stop Dose Admin Amlodipine Besylate 5 mg 09/10/19 10:00 Norvasc - PO DAILY NITESH Aripiprazole 5 mg 09/10/19 10:00 Abilify PO DAILY NITESH Aspirin 81 mg 09/10/19 10:00 Asa - PO DAILY NITESH Atorvastatin Calcium 20 mg 09/09/19 22:00 09/09/19 23:12 Lipitor - PO 20 mg HS NITESH Administration Enoxaparin Sodium 40 mg 09/10/19 10:00 Lovenox - SQ DAILY NITESH Levothyroxine Sodium 25 mcg 09/10/19 07:00 Synthroid - PO DAILY@0700 NITESH Pantoprazole Sodium 40 mg 09/09/19 21:30 09/09/19 23:12 Protonix Iv IVPUSH 40 mg DAILY NITESH Administration Risperidone 1 mg 09/09/19 22:00 Risperdal - PO BID NITESH ASSESSMENT AND PLAN: 1. Chest pain - Etiology unclear. Has risk factors for CAD, but may signal flare up of GERD. No acute abnormality on CXR or CT abdomen/pelvis with IV contrast. EKG shows sinus bradycardia at 59/minute and QTc [address]-T wave changes. Initial troponin is negative. Will admit to telemetry, trend troponin, get ECHO, fasting lipids, TSH, give IV Protonix and consult Cardiology/GI. Leukocytosis is likely due to stress - will repeat. Viral testing for COVID-19 ordered and patient placed on airborne, droplet and contact isolation. ER staff prescribed Tylenol, Aspirin 324 mg, Viscous lidocaine, Pepcid, Mylanta for the patient. Will continue comprehensive care for all of patients comorbid conditions including Synthroid for hypothyrodism and Duoneb PRN for COPD. 2. Hypoalbuminemia - Possibly due to combined effects of malnutrition and inflammation associated with comorbid conditions. Will ensure adequate dietary protein intake and also consult media relations intern. 3. Polypharmacy - Will liaise with patient's PCP to discontinue medications that are not absolutely essential. 4. Obesity Counseled on the risks associated with obesity. Will provide patient all the necessary assistance, counseling and positive reinforcement to facilitate weight loss. Consult media relations intern. 5. Hypertension Will restart suitable outpatient antihypertensive drugs when clinically appropriate. Subsequently, will revise regimen to ensure [id number] excellent BP control. Patient counseled on the injurious effects of uncontrolled hypertension. Nonpharmacologic measures to control hypertension like weight loss, salt restriction and exercise stressed. Importance of adherence to treatment regimen and attainment of normotension emphasized. 6. DVT prophylaxis - Lovenox 40 mg SQ q 24 hours. 7. Advance directives - Full code
--- NOTE | 2019-09-09 21:07 | HP ---
CHIEF COMPLAINT: Chest pain PCP: Dr. Tavares HISTORY OF PRESENT ILLNESS: 74 yo female with PMHx (as per chart) of COPD (on home o2), HTN, HLD, schizophrenia, hypothyroid, GERD & diverticulosis. On interview, patient denies having anything other than COPD and frequent heart burn. Patient said her chest pain started after eating breakfast and described it as squeezing tightness that radiated towards her back and left arm. She said she ate sausages and eggs for breakfast. She said this sensations happens so metimes after eating but today it was worse. She first said her pain has improved since getting treatment in the ED and then stated that her pain was an 8 out of 10. She endorses shortness of breath at baseline that was increased with her chest pain. She denies n/v/d, fever, ER course was notable for: (1) EKG: sinus nasir, no acute ischemic changes, Qtc 439 (2) Abdominal CT & CXR (3) Tylenol, Aspirin 324 mg, Viscous lidocaine, Pepcid, Mylanta Recent Travel: denies PAST MEDICAL HISTORY: patient only endorses COPD & GERD According to chart: HTN, HLD, schizophrenia, hypothyroid, diverticulosis PAST SURGICAL HISTORY: hernia repair Family History: denies Social History: Smoking: denies Alcohol: denies Drugs: denies Allergies morphine Allergy (Unknown, Verified 04/04/19 13:50) Penicillins Allergy (Unknown, Verified 04/04/19 13:50) chocolate Allergy (Unknown, Uncoded 04/04/19 13:50) HOME MEDICATIONS: Home Medications Medication Instructions Recorded Albuterol Sulfate Inhaler - 1 - 2 inh PO QID 06/11/18 [Ventolin HFA Inhaler -] Alendronate Sodium/Vitamin D3 70 mg PO Q7D 06/11/18 [Fosamax Plus D 70 mg-5,600 Iu vIT d] Aripiprazole [Abilify] 5 mg PO DAILY 06/11/18 Aspirin 81 mg PO DAILY 06/11/18 Clopidogrel Bisulfate [Plavix] 75 mg PO DAILY 06/11/18 Cyclobenzaprine HCl [Flexeril -] 10 mg PO TID 06/11/18 Ferrous Sulfate [Feosol] 325 mg PO DAILY 06/11/18 Levothyroxine [Synthroid -] 25 mcg PO DAILY 06/11/18 Pantoprazole Sodium [Protonix -] 20 mg PO DAILY 06/11/18 Risperidone [Risperdal] 1 mg PO BID 06/11/18 Solifenacin Succinate [Vesicare -] 10 mg PO DAILY 06/11/18 Tiotropium [place] [Spiriva] 1 inh PO DAILY 06/11/18 Amlodipine Besylate 5 mg PO DAILY 07/28/18 Docusate Sodium 200 mg PO HS 07/28/18 Fluticasone Prop 0.05% Nasal 1 spray NS BID 07/28/18 [Flonase -] Montelukast Sodium [Singulair] 10 mg PO DAILY 07/28/18 Acetaminophen [Tylenol] 650 mg PO PRN PRN 06/15/19 Atorvastatin Calcium 20 mg PO HS 06/15/19 Docusate Sodium [Colace] 100 mg PO HS 06/15/19 Fluticasone/Vilanterol [Breo 1 each IH DAILY 06/15/19 Ellipta 200-25 Mcg INH] Diclofenac Potassium 50 mg PO DAILY 06/16/19 Sennosides [Senna -] 1 tab PO BID #30 tablet 06/25/19 Polyethylene Glycol 3350 [Miralax 17 gm PO DAILY 30 Days #1 bottle 06/27/19 119 gm Btl -] Simethicone [Mylicon -] 80 mg PO Q4H PRN #30 tab.chew 06/27/19 REVIEW OF SYSTEMS CONSTITUTIONAL: Absent: fever, chills, diaphoresis, generalized weakness, malaise, loss of appetite, weight change HEENT: Absent: rhinorrhea, nasal congestion, throat pain, throat swelling, difficulty swallowing, mouth swelling, ear pain, eye pain, visual changes CARDIOVASCULAR: Chest pain Absent: syncope, palpitations, irregular heart rate, lightheadedness, peripheral edema RESPIRATORY: SOB Absent: cough, dyspnea with exertion, orthopnea, wheezing, stridor, hemoptysis GASTROINTESTINAL: upper abdominal pain Absent: abdominal distension, nausea, vomiting, diarrhea, constipation, melena, hematochezia GENITOURINARY: Absent: dysuria, frequency, urgency, hesitancy, hematuria, flank pain, genital pain MUSCULOSKELETAL: Absent: myalgia, arthralgia, joint swelling, back pain, neck pain SKIN: Absent: rash, itching, pallor HEMATOLOGIC/IMMUNOLOGIC: Absent: easy bleeding, easy bruising, lymphadenopathy, frequent infections ENDOCRINE: Absent: unexplained weight gain, unexplained weight loss, heat intolerance, cold intolerance NEUROLOGIC: Absent: headache, focal weakness or paresthesias, dizziness, unsteady gait, seizure, mental status changes, bladder or bowel incontinence PSYCHIATRIC: Absent: anxiety, depression, suicidal or homicidal ideation, hallucinations. PHYSICAL EXAMINATION Vital Signs - 24 hr Vital Signs - 24 hr 09/09/19 09/09/19 09/10/19 13:09 22:02 00:17 Temperature 97.6 F 97.0 F L 97.8 F Pulse Rate 55 L 53 L Pulse Rate [ 64 Left Radial] Respiratory 20 15 Rate Blood Pressure 136/87 127/52 L Blood Pressure 130/50 L [Right Arm] O2 Sat by Pulse 100 98 98 Oximetry (%) GENERAL: Awake, alert, and fully oriented, in no acute distress. HEAD: Normal with no signs of trauma. EYES: Pupils equal, round and reactive to light, extraocular movements intact, sclera anicteric, conjunctiva clear. ENT: Moist mucous membranes. NECK: Normal range of motion, no JVD LUNGS: Patient would not take deep breaths, decrease lower breath sounds, otherwise CTA BL HEART: Regular rate and rhythm, normal S1 and S2 without murmur, rub or gallop. ABDOMEN: Soft, obese, mildly tender to palpation in epigastric region MUSCULOSKELETAL: reproducible chest pain to palpation of left sternal border UPPER EXTREMITIES: 2+ pulses, warm, well-perfused. No cyanosis. No clubbing. No peripheral edema. 5/5 muscle strength LOWER EXTREMITIES: 2+ pulses, warm, well-perfused. No calf tenderness. No peripheral edema. Left knee more edematous. 3/5 muscle strength BL NEUROLOGICAL: Cranial nerves II-XII intact. Normal speech. PSYCHIATRIC: Cooperative. Anxious SKIN: Warm, dry, normal turgor, no rashes or lesions noted Laboratory Results - last 24 hr 09/09/19 09/09/19 09/09/19 14:39 14:39 14:39 WBC 11.4 H RBC 4.01 Hgb 12.4 Hct 37.7 MCV 94.0 MCH 30.8 MCHC 32.8 RDW 13.6 Plt Count 241 MPV 8.3 Absolute Neuts (auto) 8.4 H Neutrophils % 73.7 Lymphocytes % 17.2 Monocytes % 6.4 Eosinophils % 2.1 Basophils % 0.6 Nucleated RBC % 0 PT with INR 12.90 INR 1.09 Sodium Potassium Chloride Carbon Dioxide Anion Gap BUN Creatinine Est GFR (CKD-EPI)AfAm Est GFR (CKD-EPI)NonAf Random Glucose Calcium Total Bilirubin AST ALT Alkaline Phosphatase Troponin I < 0.02 Total Protein Albumin Lipase 54 L Urine Color Urine Appearance Urine pH Ur Specific [place] Urine Protein Urine Glucose (UA) Urine Ketones Urine Blood Urine Nitrite Urine Bilirubin Urine Urobilinogen Ur Leukocyte Esterase 09/09/19 09/09/19 14:39 18:30 WBC RBC Hgb Hct MCV MCH MCHC RDW Plt Count MPV Absolute Neuts (auto) Neutrophils % Lymphocytes % Monocytes % Eosinophils % Basophils % Nucleated RBC % PT with INR INR Sodium 140 Potassium 4.4 Chloride 108 H Carbon Dioxide 28 Anion Gap 4 L BUN 19.1 H Creatinine 0.8 Est GFR (CKD-EPI)AfAm 84.77 Est GFR (CKD-EPI)NonAf 73.14 Random Glucose 113 H Calcium 9.0 Total Bilirubin 0.3 AST 7 L ALT 16 Alkaline Phosphatase 109 Troponin I Total Protein 5.8 L Albumin 3.3 L Lipase Urine Color Yellow Urine Appearance Clear Urine pH 6.5 Ur Specific [place] 1.024 Urine Protein Negative Urine Glucose (UA) Negative Urine Ketones Negative Urine Blood Negative Urine Nitrite Negative Urine Bilirubin Negative Urine Urobilinogen 0.2 Ur Leukocyte Esterase Negative IMAGING CT AB: The lung bases are clear. The liver, spleen, pancreas, adrenal glands and kidneys demonstrate no significant abnormalities. There is no evidence of intra- abdominal or retroperitoneal lymphadenopathy or fluid collections. There is no evidence of pneumoperitoneum, bowel obstruction or intra-abdominal abscess. Th ere is no CT evidence of acute appendicitis or diverticulitis. Examination of the pelvis demonstrates no evidence of pelvic masses, fluid collections or lymphadenopathy. The uterus is unremarkable. The urinary bladder is somewhat distended. There is no evidence of acute bony pathology. IMPRESSION: No evidence of acute pathology within the abdomen or pelvis. ASSESSMENT/PLAN: 74 yo female presented to the ED with chest pain after eating breakfast. Patient has calculated heart score of 5 and risk factors for ACS. Admitted to the hospital for chest pain, r/o ACS. Chest pain: ACS vs. GERD, vs. MSK - EKG showed no ischemic changes - trops neg x2 - Echocardiogram ordered - repeat EKG in AM - ASA daily - Hx of HLD - continue lipitor - Hx HTN - continue norvasc - Hx of GERD with pain after eating, started protonix daily GERD - recurrent uncontrolled reflux - consulted GI for possible EGD Schizophrenia - continue risperidone & abilify - med rec in AM with facility DVT prophylaxis - Lovenox 40 mg SQ OTHER MED REC IN AM patient medication list includes - plavix - flexeril - need to confirm before starting Visit type - Medication Review Med list reviewed for High Risk Meds patients 65 and older: Yes - Emergency Visit Emergency Visit: Yes ED Registration Date: 09/09/19 Care time: The patient presented to the Emergency Department on the above date and was hospitalized for further evaluation of their emergent condition. - New Patient This patient is new to me today: Yes Date on this admission: 10/10/19 - Critical Care Critical Care patient: No ATTENDING PHYSICIAN STATEMENT I saw and evaluated the patient. I reviewed the resident's note and discussed the case with the resident. I agree with the resident's findings and plan as documented. SUBJECTIVE: OBJECTIVE: ASSESSMENT AND PLAN:
[2019-09-09] MEDS ORDERED: ASPIRIN 81 MG CHEWABLE TABLETS ONE (21:08)
[2019-09-09] MEDS ORDERED: ATORVASTATIN CA 20 MG TABLET (FP) PO SCH (22:00)
[2019-09-09] MEDS ORDERED: PANTOPRAZOLE SODIUM 40 MG/100 ML BAG IVPB ONE (23:04)
[2019-09-09] MEDS ORDERED: ATORVASTATIN CA 20 MG TABLET (FP) ONE (23:04)
[2019-09-09] MEDS: PANTOPRAZOLE SODIUM 40 MG VIAL IVPUSH SCH (23:12)
[2019-09-09 23:28] LABS: HEMATOCRIT 38.6 % (32.4-45.2); HEMOGLOBIN 12.7 GM/dL (10.7-15.3); MCH 31.1 pg (25.7-33.7); MCHC 32.8 g/dl (32.0-36.0); MEAN CELL VOLUME 94.7 fl (80-96); MEAN PLT VOLUME 8.3 fl (7.5-11.1); PLATELET COUNT 242 K/MM3 (134-434); RBC 4.07 M/mm3 (3.60-5.2); RDW 13.6 % (11.6-15.6); WHITE BLOOD COUNT 10.9 K/mm3 (4.0-10.0)
[2019-09-10 00:35] VITALS: BMI 30.3
[2019-09-10] MEDS: risperiDONE 1 MG TABLET PO SCH ×3 (03:35→21:19)
[2019-09-10] MEDS: LEVOTHYROXINE NA 25 MCG TABLET (FP) PO SCH (06:25)
[2019-09-10 07:19] LABS: HEMATOCRIT 39.9 % (32.4-45.2); MCH 30.7 pg (25.7-33.7); MCHC 32.6 g/dl (32.0-36.0); MEAN CELL VOLUME 94.2 fl (80-96); MEAN PLT VOLUME 8.2 fl (7.5-11.1); PLATELET COUNT 244 K/MM3 (134-434); RBC 4.24 M/mm3 (3.60-5.2); RDW 13.9 % (11.6-15.6); WHITE BLOOD COUNT 9.8 K/mm3 (4.0-10.0)
[2019-09-10 07:41] LABS: ANION GAP 4 MMOL/L (8-16); BLOOD UREA NITROGEN 14.8 mg/dL (7-18); CALCIUM 8.5 mg/dL (8.5-10.1); CHLORIDE 106 mmol/L (98-107); CHOLESTEROL 195 mg/dL (50-200); CO2 30 mmol/L (21-32); CREATININE 0.8 mg/dL (0.55-1.3); GLUCOSE,RANDOM 107 mg/dL (74-106); MAGNESIUM 2.5 mg/dL (1.8-2.4); PHOSPHOROUS 3.2 mg/dL (2.5-4.9); POTASSIUM 4.1 mmol/L (3.5-5.1); SODIUM 139 mmol/L (136-145)
[2019-09-10 07:42] LABS: ALBUMIN 3.2 g/dl (3.4-5.0); ALK PHOS 109 U/L (45-117); BILIRUBIN,TOTAL 0.4 mg/dL (0.2-1); HDL CHOLESTEROL 34 mg/dL (40-60); LDL CHOLESTEROL (ONLY SJRH) 115 mg/dL (5-100); SGOT/AST 9 U/L (15-37); SGPT/ALT 16 U/L (13-61); TOT PROT 5.8 g/dl (6.4-8.2)
[2019-09-10 07:43] LABS: TRIGLYCERIDES 245 mg/dL (0-150)
[2019-09-10] MEDS ORDERED: PT OWN MED DRAWER 7, Y5N ONE (09:03)
[2019-09-10] MEDS: ENOXAPARIN NA (PORCINE) 40 MG/0.4 ML DISP.SYRIN SQ SCH (09:10)
[2019-09-10] MEDS: ARIPiprazole 5 MG TABLET PO SCH (09:10)
[2019-09-10] MEDS: ASPIRIN 81 MG CHEWABLE TABLETS PO SCH (09:10)
[2019-09-10] MEDS: amLODIPine BESYLATE 5 MG TABLET (FP) PO SCH (09:10)
[2019-09-10] MEDS: PANTOPRAZOLE SODIUM 40 MG VIAL IVPUSH SCH (09:11)
--- NOTE | 2019-09-10 11:16 | CON.GI ---
Consult Consult Specialty:: GI Referred by:: [facility]ist service Reason for Consultation:: chest pain - History of Present Illness Chief Complaint: Chest pain History of Present Illness: 74 F recently admitted 06/28 for evaluation of SBO / Ileus, Admitted from rehab for evaluation of chest pain. Described constant mid chest pain and pain below the left breast. Denies dysphagia, odynophagia, loss of appetite, nausea, vomiting. No change in bowel habits. No rectal bleeding. No chronic typical GERD symptoims. Has never had colonoscopy. Outpatient follow-up was advised at her last admission. - History Source History Provided By: Patient, Medical Record - Past Medical History [employer]: Yes: Parkinson's Cardio/Vascular: Yes: CAD, HTN, Hyperlipdemia Pulmonary: Yes: Asthma Gastrointestinal: Yes: Diverticulosis Renal/: Yes: Renal Inusuff Psych: Yes: Anxiety, Depression, Schizophrenia Musculoskeletal: Yes: Other Endocrine: Yes: Hypothyroidism - Past Surgical History Past Surgical History: Yes: None, Hernia Repair - Alcohol/Substance Use Hx Alcohol Use: No History of Substance Use: reports: None - Smoking History Smoking history: Never smoked Have you smoked in the past 12 months: No Aproximately how many cigarettes per day: 0 - Social History Usual Living Arrangement: Assisted Living ADL: Support Services History of Recent Travel: No Home Medications - Allergies Allergies/Adverse Reactions: Allergies Allergy/AdvReac Type Severity Reaction Status Date / Time morphine Allergy Unknown Verified 04/04/19 13:50 Penicillins Allergy Unknown Verified 04/04/19 13:50 chocolate Allergy Unknown Uncoded 04/04/19 13:50 - Home Medications Home Medications: Ambulatory Orders Albuterol Sulfate Inhaler - [Ventolin HFA Inhaler -] 1 - 2 inh PO QID 06/11/18 Alendronate Sodium/Vitamin D3 [Fosamax Plus D 70 mg-5,600 Iu vIT d] 70 mg PO Q7D 06/11/18 Aripiprazole [Abilify] 5 mg PO DAILY 06/11/18 Aspirin 81 mg PO DAILY 06/11/18 Clopidogrel Bisulfate [Plavix] 75 mg PO DAILY 06/11/18 Cyclobenzaprine HCl [Flexeril -] 10 mg PO TID 06/11/18 Ferrous Sulfate [Feosol] 325 mg PO DAILY 06/11/18 Levothyroxine [Synthroid -] 25 mcg PO DAILY 06/11/18 Pantoprazole Sodium [Protonix -] 20 mg PO DAILY 06/11/18 Risperidone [Risperdal] 1 mg PO BID 06/11/18 Solifenacin Succinate [Vesicare -] 10 mg PO DAILY 06/11/18 Tiotropium [place] [Spiriva] 1 inh PO DAILY 06/11/18 Amlodipine Besylate 5 mg PO DAILY 07/28/18 Docusate Sodium 200 mg PO HS 07/28/18 Fluticasone Prop 0.05% Nasal [Flonase -] 1 spray NS BID 07/28/18 Montelukast Sodium [Singulair] 10 mg PO DAILY 07/28/18 Acetaminophen [Tylenol] 650 mg PO PRN PRN 06/15/19 Atorvastatin Calcium 20 mg PO HS 06/15/19 Docusate Sodium [Colace] 100 mg PO HS 06/15/19 Fluticasone/Vilanterol [Breo Ellipta 200-25 Mcg INH] 1 each IH DAILY 06/15/19 Diclofenac Potassium 50 mg PO DAILY 06/16/19 Sennosides [Senna -] 1 tab PO BID #30 tablet 06/25/19 Polyethylene Glycol 3350 [Miralax 119 gm Btl -] 17 gm PO DAILY 30 Days #1 bottle 06/27/19 Simethicone [Mylicon -] 80 mg PO Q4H PRN #30 tab.chew 06/27/19 Family Medical History Other Family History: No family history of colorectal cancer or other GI malignancy Review of Systems - Review of Systems Constitutional: denies: Chills, Fever Cardiovascular: reports: Chest Pain Respiratory: denies: Cough, SOB Gastrointestinal: denies: Abdominal Pain, Melena, Nausea, Vomiting Genitourinary: denies: Discharge, Dysuria Physical Exam-GI Vital Signs: Vital Signs Temperature 98.2 F 09/10/19 08:00 Pulse Rate 64 09/10/19 10:00 Respiratory Rate 17 09/10/19 10:00 Blood Pressure 139/48 L 09/10/19 10:00 O2 Sat by Pulse Oximetry (%) 100 09/10/19 10:00 Constitutional: Yes: Calm Eyes: No: Sclera Icterus Cardiovascular: Yes: Regular Rate and Rhythm. No: Murmur Respiratory: Yes: CTA Bilaterally, Other (Tenderness to palpation along left lateral border of sternum and the anterior / lateral apect intercostal lower ribs. Reproducing pain patient described yesterday.) Gastrointestinal Inspection: No: Distention ...Auscultate: Yes: Normoactive Bowel Sounds ...Palpate: Yes: Soft. No: Hepatomegaly, Splenomegaly, Tenderness ...Percussion: No: Tympanitic Edema: No (No LE edema) Neurological: Yes: Alert Labs: CBC, BMP 09/10/19 06:08 09/10/19 06:08 INR, PTT INR 1.09 (0.83-1.09) 09/09/19 14:39 Hepatic Panel Total Bilirubin 0.4 mg/dL (0.2-1) 09/10/19 06:08 AST 9 U/L (15-37) L 09/10/19 06:08 ALT 16 U/L (13-61) 09/10/19 06:08 Alkaline Phosphatase 109 U/L (45-117) 09/10/19 06:08 Albumin 3.2 g/dl (3.4-5.0) L 09/10/19 06:08 Problem List - Problems (1) Chest pain Assessment/Plan: No abdominal tenderness noted on exam. There was reproducible pain elicited upon palpation of the left lateral border of the lower sternum and anteromedial aspect of the left lower rib intercostals. Being evaluated by primary team for causes of chest pain Given exam findings, somatic etiology should be considered in the differential such as costochondritis. Eval per primary team Protonix 40mg PO once daily Outpatient follow-up for screening colonoscopy when acute issues are resolved Code(s): R07.9 - CHEST PAIN, UNSPECIFIED
[2019-09-10] MEDS ORDERED: KETOROLAC TROMETHAMINE 30 MG/1 ML VIAL IVPUSH ONE (11:51)
--- NOTE | 2019-09-10 12:00 | PN ---
Physical Exam: SUBJECTIVE: Patient seen and examined at bedside, endorses L chest wall pain, pleuritic in nature, GI as OP. VSS. OBJECTIVE: Vital Signs Period Temp Pulse Resp BP Sys/Lin Pulse Ox Last 24 Hr 97.0 F-98.2 F 49-64 14-20 110-139/45-87 98-100 GENERAL: Awake, alert, and fully oriented, in no acute distress. HEAD: Normal with no signs of trauma. EYES: Pupils equal, round and reactive to light, extraocular movements intact, sclera anicteric, conjunctiva clear. ENT: Moist mucous membranes. NECK: Normal range of motion, no JVD LUNGS: CTAB, pain on coughing, L chest wall tenderness, no visible rashes HEART: Regular rate and rhythm, normal S1 and S2 without murmur, rub or gallop. ABDOMEN: Soft, obese, mildly tender to palpation in epigastric region MUSCULOSKELETAL: reproducible chest pain to palpation of left sternal border UPPER EXTREMITIES: 2+ pulses, warm, well-perfused. No cyanosis. No clubbing. No peripheral edema. 5/5 muscle strength LOWER EXTREMITIES: 2+ pulses, warm, well-perfused. No calf tenderness. No peripheral edema. Left knee more edematous. 3/5 muscle strength BL NEUROLOGICAL: Cranial nerves II-XII intact. Normal speech. PSYCHIATRIC: Cooperative. Anxious SKIN: Warm, dry, normal turgor, no rashes or lesions noted Laboratory Results - last 24 hr 09/09/19 09/09/19 09/09/19 14:39 14:39 14:39 WBC 11.4 H RBC 4.01 Hgb 12.4 Hct 37.7 MCV 94.0 MCH 30.8 MCHC 32.8 RDW 13.6 Plt Count 241 MPV 8.3 Absolute Neuts (auto) 8.4 H Neutrophils % 73.7 Lymphocytes % 17.2 Monocytes % 6.4 Eosinophils % 2.1 Basophils % 0.6 Nucleated RBC % 0 PT with INR 12.90 INR 1.09 Sodium Potassium Chloride Carbon Dioxide Anion Gap BUN Creatinine Est GFR (CKD-EPI)AfAm Est GFR (CKD-EPI)NonAf POC Glucometer Random Glucose Hemoglobin A1c % Calcium Phosphorus Magnesium Total Bilirubin AST ALT Alkaline Phosphatase Creatine Kinase Troponin I < 0.02 Total Protein Albumin Triglycerides Cholesterol Total LDL Cholesterol HDL Cholesterol Lipase 54 L Urine Color Urine Appearance Urine pH Ur Specific [place] Urine Protein Urine Glucose (UA) Urine Ketones Urine Blood Urine Nitrite Urine Bilirubin Urine Urobilinogen Ur Leukocyte Esterase 09/09/19 09/09/19 09/09/19 14:39 18:30 21:14 WBC RBC Hgb Hct MCV MCH MCHC RDW Plt Count MPV Absolute Neuts (auto) Neutrophils % Lymphocytes % Monocytes % Eosinophils % Basophils % Nucleated RBC % PT with INR INR Sodium 140 Potassium 4.4 Chloride 108 H Carbon Dioxide 28 Anion Gap 4 L BUN 19.1 H Creatinine 0.8 Est GFR (CKD-EPI)AfAm 84.77 Est GFR (CKD-EPI)NonAf 73.14 POC Glucometer Random Glucose 113 H Hemoglobin A1c % Calcium 9.0 Phosphorus Magnesium Total Bilirubin 0.3 AST 7 L ALT 16 Alkaline Phosphatase 109 Creatine Kinase Troponin I < 0.02 Total Protein 5.8 L Albumin 3.3 L Triglycerides Cholesterol Total LDL Cholesterol HDL Cholesterol Lipase Urine Color Yellow Urine Appearance Clear Urine pH 6.5 Ur Specific [place] 1.024 Urine Protein Negative Urine Glucose (UA) Negative Urine Ketones Negative Urine Blood Negative Urine Nitrite Negative Urine Bilirubin Negative Urine Urobilinogen 0.2 Ur Leukocyte Esterase Negative 09/09/19 09/10/19 09/10/19 23:10 06:08 06:08 WBC 10.9 H 9.8 RBC 4.07 4.24 Hgb 12.7 13.0 Hct 38.6 39.9 MCV 94.7 94.2 MCH 31.1 30.7 MCHC 32.8 32.6 RDW 13.6 13.9 Plt Count 242 244 MPV 8.3 8.2 Absolute Neuts (auto) Neutrophils % Lymphocytes % Monocytes % Eosinophils % Basophils % Nucleated RBC % PT with INR INR Sodium 139 Potassium 4.1 Chloride 106 Carbon Dioxide 30 Anion Gap 4 L BUN 14.8 Creatinine 0.8 Est GFR (CKD-EPI)AfAm 84.77 Est GFR (CKD-EPI)NonAf 73.14 POC Glucometer Random Glucose 107 H Hemoglobin A1c % Calcium 8.5 Phosphorus 3.2 Magnesium 2.5 H Total Bilirubin 0.4 AST 9 L ALT 16 Alkaline Phosphatase 109 Creatine Kinase 35 Troponin I < 0.02 Total Protein 5.8 L Albumin 3.2 L Triglycerides 245 H Cholesterol 195 Total LDL Cholesterol 115 H HDL Cholesterol 34 L Lipase Urine Color Urine Appearance Urine pH Ur Specific [place] Urine Protein Urine Glucose (UA) Urine Ketones Urine Blood Urine Nitrite Urine Bilirubin Urine Urobilinogen Ur Leukocyte Esterase 09/10/19 09/10/19 06:08 06:19 WBC RBC Hgb Hct MCV MCH MCHC RDW Plt Count MPV Absolute Neuts (auto) Neutrophils % Lymphocytes % Monocytes % Eosinophils % Basophils % Nucleated RBC % PT with INR INR Sodium Potassium Chloride Carbon Dioxide Anion Gap BUN Creatinine Est GFR (CKD-EPI)AfAm Est GFR (CKD-EPI)NonAf POC Glucometer 103 Random Glucose Hemoglobin A1c % 6.4 H Calcium Phosphorus Magnesium Total Bilirubin AST ALT Alkaline Phosphatase Creatine Kinase Troponin I Total Protein Albumin Triglycerides Cholesterol Total LDL Cholesterol HDL Cholesterol Lipase Urine Color Urine Appearance Urine pH Ur Specific [place] Urine Protein Urine Glucose (UA) Urine Ketones Urine Blood Urine Nitrite Urine Bilirubin Urine Urobilinogen Ur Leukocyte Esterase Active Medications Generic Name Dose Route Start Last Admin Trade Name Freq PRN Reason Stop Dose Admin Amlodipine Besylate 5 mg 09/10/19 10:00 09/10/19 09:10 Norvasc - PO 5 mg DAILY NITESH Administration Aripiprazole 5 mg 09/10/19 10:00 09/10/19 09:10 Abilify PO 5 mg DAILY NITESH Administration Aspirin 81 mg 09/10/19 10:00 09/10/19 09:10 Asa - PO 81 mg DAILY NITESH Administration Atorvastatin Calcium 40 mg 09/10/19 08:22 Lipitor - PO HS NITESH Enoxaparin Sodium 40 mg 09/10/19 10:00 09/10/19 09:10 Lovenox - SQ 40 mg DAILY NITESH Administration Ketorolac Tromethamine 30 mg 09/10/19 11:51 Toradol Injection - IVPUSH 09/10/19 11:52 ONCE ONE Levothyroxine Sodium 25 mcg 09/10/19 07:00 09/10/19 06:25 Synthroid - PO 25 mcg DAILY@0700 NITESH Administration Pantoprazole Sodium 40 mg 09/10/19 10:00 Protonix - PO BID NITESH Risperidone 1 mg 09/09/19 22:00 09/10/19 09:11 Risperdal - PO 1 mg BID NITESH Administration ASSESSMENT/PLAN: 74 F Costochondritis GERD HTN HLD Mood disorder Obesity Plan: 1 dose of Toradol for costochondritis no s/o ACS Low suspicion for COVID GI recommending OP follow up for GERD sx DC to [facility] and follow w/ Dr. Lynn Tavares (PCP) Visit type - Emergency Visit Emergency Visit: Yes ED Registration Date: 09/09/19 Care time: The patient presented to the Emergency Department on the above date and was hospitalized for further evaluation of their emergent condition. - New Patient This patient is new to me today: Yes Date on this admission: 09/10/19 - Critical Care Critical Care patient: No - Discharge Referral Referred to [facility] No - Medication Review Med list reviewed for High Risk Meds patients 65 and older: Yes
[2019-09-10] MEDS: PANTOPRAZOLE 40 MG TABLET PO SCH ×2 (13:09→21:19)
[2019-09-10] MEDS: ATORVASTATIN CA 40 MG TABLET (FP) PO SCH (21:19)
[2019-09-11] MEDS: LEVOTHYROXINE NA 25 MCG TABLET (FP) PO SCH (06:44)
[2019-09-11 07:14] LABS: BASO % 0.5 % (0-2.0); EOS % 3.3 % (0-4.5); HEMATOCRIT 38.3 % (32.4-45.2); HEMOGLOBIN 12.5 GM/dL (10.7-15.3); LYMPH % 21.7 % (8-40); MCH 30.5 pg (25.7-33.7); MCHC 32.7 g/dl (32.0-36.0); MEAN CELL VOLUME 93.1 fl (80-96); MEAN PLT VOLUME 8.1 fl (7.5-11.1); MONO % 6.4 % (3.8-10.2); NEUT % 68.1 % (42.8-82.8); PLATELET COUNT 226 K/MM3 (134-434); RBC 4.11 M/mm3 (3.60-5.2); RDW 13.5 % (11.6-15.6); WHITE BLOOD COUNT 8.6 K/mm3 (4.0-10.0)
[2019-09-11 07:41] LABS: ALBUMIN 3.2 g/dl (3.4-5.0); ALK PHOS 102 U/L (45-117); ANION GAP 6 MMOL/L (8-16); BILIRUBIN,TOTAL 0.5 mg/dL (0.2-1); BLOOD UREA NITROGEN 22.4 mg/dL (7-18); CALCIUM 8.5 mg/dL (8.5-10.1); CHLORIDE 107 mmol/L (98-107); CO2 27 mmol/L (21-32); CREATININE 0.9 mg/dL (0.55-1.3); GLUCOSE,RANDOM 106 mg/dL (74-106); POTASSIUM 4.2 mmol/L (3.5-5.1); SGOT/AST 10 U/L (15-37); SGPT/ALT 15 U/L (13-61); SODIUM 139 mmol/L (136-145); TOT PROT 5.6 g/dl (6.4-8.2)
[2019-09-11] MEDS: risperiDONE 1 MG TABLET PO SCH ×2 (10:16→21:14)
[2019-09-11] MEDS: ENOXAPARIN NA (PORCINE) 40 MG/0.4 ML DISP.SYRIN SQ SCH (10:17)
[2019-09-11] MEDS: ASPIRIN 81 MG CHEWABLE TABLETS PO SCH (10:17)
[2019-09-11] MEDS: amLODIPine BESYLATE 5 MG TABLET (FP) PO SCH (10:17)
[2019-09-11] MEDS: PANTOPRAZOLE 40 MG TABLET PO SCH ×2 (10:17→21:14)
[2019-09-11] MEDS: ARIPiprazole 5 MG TABLET PO SCH (10:17)
--- NOTE | 2019-09-11 19:01 | PN ---
Physical Exam: SUBJECTIVE: Patient seen and examined 09/11/19: Pt reports pain to her left side when she moves. No SOB, no nausea, vomiting, fever or chills OBJECTIVE: Vital Signs Period Temp Pulse Resp BP Sys/Lin Pulse Ox Last 24 Hr 97.4 F-98.8 F 64-79 12-20 100-147/52-76 93-100 GENERAL: The patient is awake, alert, and fully oriented, in no acute distress. HEAD: Normal with no signs of trauma. EYES: extraocular movements intact, sclera anicteric, conjunctiva clear. No ptosis. ENT: Ears normal, nares patent, oropharynx clear without exudates, moist mucous membranes. NECK: Trachea midline, full range of motion, supple. LUNGS: Breath sounds equal, clear to auscultation bilaterally, no wheezes, no crackles, no accessory muscle use. POS LEFT LOWER RIB POINT TENDERNESS HEART: Regular rate and rhythm, S1, S2 without murmur, rub or gallop. ABDOMEN: Soft, nontender, nondistended, normoactive bowel sounds, no guarding, no rebound, no hepatosplenomegaly, no masses. EXTREMITIES: 2+ pulses, warm, well-perfused, no edema. NEUROLOGICAL: Cranial nerves II through XII grossly intact. Normal speech, gait not observed. PSYCH: Normal mood, normal affect. SKIN: Warm, dry, normal turgor, no rashes or lesions noted Laboratory Results - last 24 hr 09/10/19 09/11/19 09/11/19 21:35 05:43 05:43 WBC 8.6 RBC 4.11 Hgb 12.5 Hct 38.3 MCV 93.1 MCH 30.5 MCHC 32.7 RDW 13.5 Plt Count 226 MPV 8.1 Absolute Neuts (auto) 5.8 Neutrophils % 68.1 Lymphocytes % 21.7 D Monocytes % 6.4 Eosinophils % 3.3 Basophils % 0.5 Nucleated RBC % 0 Sodium 139 Potassium 4.2 Chloride 107 Carbon Dioxide 27 Anion Gap 6 L BUN 22.4 H Creatinine 0.9 Est GFR (CKD-EPI)AfAm 73.52 Est GFR (CKD-EPI)NonAf 63.43 POC Glucometer 166 Random Glucose 106 Calcium 8.5 Total Bilirubin 0.5 AST 10 L ALT 15 Alkaline Phosphatase 102 Creatine Kinase 35 Troponin I < 0.02 Total Protein 5.6 L Albumin 3.2 L 09/11/19 09/11/19 09/11/19 12:33 17:15 17:58 WBC RBC Hgb Hct MCV MCH MCHC RDW Plt Count MPV Absolute Neuts (auto) Neutrophils % Lymphocytes % Monocytes % Eosinophils % Basophils % Nucleated RBC % Sodium Potassium Chloride Carbon Dioxide Anion Gap BUN Creatinine Est GFR (CKD-EPI)AfAm Est GFR (CKD-EPI)NonAf POC Glucometer 117 155 Random Glucose Calcium Total Bilirubin AST ALT Alkaline Phosphatase Creatine Kinase 38 Troponin I < 0.02 Total Protein Albumin Active Medications Generic Name Dose Route Start Last Admin Trade Name Freq PRN Reason Stop Dose Admin Amlodipine Besylate 5 mg 09/10/19 10:00 09/11/19 10:17 Norvasc - PO 5 mg DAILY NITESH Administration Aripiprazole 5 mg 09/10/19 10:00 09/11/19 10:17 Abilify PO 5 mg DAILY NITESH Administration Aspirin 81 mg 09/10/19 10:00 09/11/19 10:17 Asa - PO 81 mg DAILY NITESH Administration Atorvastatin Calcium 40 mg 09/10/19 08:22 09/10/19 21:19 Lipitor - PO 40 mg HS NITESH Administration Enoxaparin Sodium 40 mg 09/10/19 10:00 09/11/19 10:17 Lovenox - SQ 40 mg DAILY NITESH Administration Levothyroxine Sodium 25 mcg 09/10/19 07:00 09/11/19 06:44 Synthroid - PO 25 mcg DAILY@0700 NITESH Administration Pantoprazole Sodium 40 mg 09/10/19 10:00 09/11/19 10:17 Protonix - PO 40 mg BID NITESH Administration Risperidone 1 mg 09/09/19 22:00 09/11/19 10:16 Risperdal - PO 1 mg BID NITESH Administration ASSESSMENT/PLAN: 74 F with htn, hl, mood disorder, gerd admitted with chest pain *Chest Pain - atypical cardiac enzymes neg x 3 EKG was neg Likely costochondritis/musculoskeletal pain Trial of one dose of steroids - if does not help her pain, consider further eval check d dimer but low suspicion for PE s/p toradol yest without relief check rib series on left to r/o fx *HTN - bp controlled on norvasc *hl - on statin *Hypothyroidism - no acute issues Cont synthroid *hx of gerd -- on protonix. Will f/u with GI as outpt for colonoscopy *DVT prophy - lovenox Problem List - Problems (1) Chest pain Code(s): R07.9 - CHEST PAIN, UNSPECIFIED Visit type - Emergency Visit Emergency Visit: Yes ED Registration Date: 09/09/19 Care time: The patient presented to the Emergency Department on the above date and was hospitalized for further evaluation of their emergent condition. - New Patient This patient is new to me today: Yes Date on this admission: 09/11/19 - Critical Care Critical Care patient: No - Discharge Referral Referred to [facility] No - Medication Review Med list reviewed for High Risk Meds patients 65 and older: Yes
[2019-09-11] MEDS: ACETAMINOPHEN 325 MG TABLET (FP) PO PRN (20:06)
[2019-09-11] MEDS ORDERED: PT OWN MED DRAWER 7, Y5N ONE (21:13)
[2019-09-11] MEDS: ATORVASTATIN CA 40 MG TABLET (FP) PO SCH (21:14)
[2019-09-11] MEDS ORDERED: methylPREDNISolone NA SUCC 40 MG/1 ML VIAL IVPUSH ONE (21:38)
[2019-09-12] MEDS: ACETAMINOPHEN 325 MG TABLET (FP) PO PRN (06:45)
[2019-09-12] MEDS: LEVOTHYROXINE NA 25 MCG TABLET (FP) PO SCH (06:45)
[2019-09-12] MEDS ORDERED: PT OWN MED DRAWER 7, Y5N ONE (09:07)
[2019-09-12] MEDS: ASPIRIN 81 MG CHEWABLE TABLETS PO SCH (09:16)
[2019-09-12] MEDS: ENOXAPARIN NA (PORCINE) 40 MG/0.4 ML DISP.SYRIN SQ SCH (09:16)
[2019-09-12] MEDS: ARIPiprazole 5 MG TABLET PO SCH (09:16)
[2019-09-12] MEDS: PANTOPRAZOLE 40 MG TABLET PO SCH ×2 (09:16→21:08)
[2019-09-12] MEDS: risperiDONE 1 MG TABLET PO SCH ×2 (09:16→21:45)
[2019-09-12] MEDS: amLODIPine BESYLATE 5 MG TABLET (FP) PO SCH (09:16)
--- NOTE | 2019-09-12 10:11 | EKG ---
Test Reason : Blood Pressure : / mmHG Vent. Rate : 070 BPM Atrial Rate : 070 BPM P-R Int : 192 ms QRS Dur : 090 ms QT Int : 424 ms P-R-T Axes : 030 -08 089 degrees QTc Int : 457 ms NORMAL SINUS RHYTHM SEPTAL INFARCT , AGE UNDETERMINED ABNORMAL ECG WHEN COMPARED WITH ECG OF 09-SEP-2019 13:11, SEPTAL INFARCT IS NOW PRESENT Confirmed by Teresa Vickers ([id number]) on 09/12/2019 10:11:29 AM Referred By: MARCELLO HERNANDEZ Confirmed By:Teresa Vickers
--- NOTE | 2019-09-12 10:21 | EKG ---
Test Reason : Blood Pressure : / mmHG Vent. Rate : 059 BPM Atrial Rate : 059 BPM P-R Int : 200 ms QRS Dur : 088 ms QT Int : 444 ms P-R-T Axes : 035 005 084 degrees QTc Int : 439 ms SINUS BRADYCARDIA BORDERLINE ECG WHEN COMPARED WITH ECG OF 16-JUN-2019 02:05, CRITERIA FOR SEPTAL INFARCT ARE NO LONGER PRESENT NONSPECIFIC T WAVE ABNORMALITY NO LONGER EVIDENT IN INFERIOR LEADS T WAVE INVERSION NO LONGER EVIDENT IN LATERAL LEADS Confirmed by Teresa Vickers ([id number]) on 09/12/2019 10:20:55 AM Referred By: Confirmed By:Teresa Vickers
[2019-09-12 12:14] LABS: ARTERIAL BLOOD GAS BASE EXCESS -3.1 mmol/L (-2-2); ARTERIAL BLOOD GAS PO2 101.5 mmHg (80-100); ARTERIAL BLOOD GAS pH 7.463 (7.350-7.450)
[2019-09-12 12:16] LABS: ALLENS TEST POSITIVE
[2019-09-12] MEDS ORDERED: amLODIPine BESYLATE 5 MG TABLET (FP) PO ONE (14:45)
--- NOTE | 2019-09-12 16:38 | PN ---
Physical Exam: SUBJECTIVE: Patient seen and examined. No acute events overnight. OBJECTIVE: Vital Signs Temperature 97.7 F 09/12/19 14:32 Pulse Rate 96 H 09/12/19 14:32 Respiratory Rate 17 09/12/19 14:32 Blood Pressure 165/66 09/12/19 14:32 O2 Sat by Pulse Oximetry (%) 98 09/12/19 14:32 GENERAL: The patient is awake, alert, and fully oriented, in no acute distress. NECK:full range of motion, supple. LUNGS: Breath sounds equal, clear to auscultation bilaterally HEART: Regular rate and rhythm, S1, S2 ABDOMEN: Soft, nontender, nondistended, normoactive bowel sounds EXTREMITIES: 2+ pulses, warm, well-perfused, no edema. NEUROLOGICAL: Cranial nerves II through XII grossly intact. Normal speech PSYCH: Normal mood, normal affect. SKIN: Warm, dry, normal turgor Laboratory Results - last 24 hr 09/09/19 09/11/19 09/11/19 21:14 17:15 17:58 D-Dimer Anticoagulation Therapy Puncture Site Patient Temperature ABG pH ABG pCO2 ABG pO2 ABG HCO3 ABG O2 Sat (Measured) ABG O2 Content ABG Base Excess Monty Test Patient On Oxygen O2 Delivery Device Oxygen Flow Rate Vent Mode Vent Rate Mechanical Rate PEEP Pressure Support Vent POC Glucometer 155 Creatine Kinase 38 Troponin I < 0.02 COVID-19 ([facility]OR[facility]ZO) Not detected 09/11/19 09/12/19 09/12/19 21:15 06:42 11:12 D-Dimer 344 Anticoagulation Therapy Puncture Site Patient Temperature ABG pH ABG pCO2 ABG pO2 ABG HCO3 ABG O2 Sat (Measured) ABG O2 Content ABG Base Excess Monty Test Patient On Oxygen O2 Delivery Device Oxygen Flow Rate Vent Mode Vent Rate Mechanical Rate PEEP Pressure Support Vent POC Glucometer 130 188 Creatine Kinase Troponin I COVID-19 ([facility]ZO) 09/12/19 09/12/19 11:37 12:01 D-Dimer Anticoagulation Therapy No Result Required. Puncture Site Left radial Patient Temperature No Result Required. ABG pH 7.463 H ABG pCO2 27.50 L ABG pO2 101.5 H ABG HCO3 19.3 L ABG O2 Sat (Measured) 98.0 ABG O2 Content No Result Required. ABG Base Excess -3.1 L Monty Test Positive Patient On Oxygen No O2 Delivery Device No Result Required. Oxygen Flow Rate No Result Required. Vent Mode No Result Required. Vent Rate No Result Required. Mechanical Rate No Result Required. PEEP No Result Required. Pressure Support Vent No Result Required. POC Glucometer 217 Creatine Kinase Troponin I COVID-19 ([facility]ZO) Active Medications Generic Name Dose Route Start Last Admin Trade Name Freq PRN Reason Stop Dose Admin Acetaminophen 650 mg 09/11/19 19:45 09/12/19 06:45 Tylenol - PO 650 mg Q6H PRN Administration PAIN LEVEL 1-5 Amlodipine Besylate 5 mg 09/10/19 10:00 09/12/19 09:16 Norvasc - PO 5 mg DAILY NITESH Administration Aripiprazole 5 mg 09/10/19 10:00 09/12/19 09:16 Abilify PO 5 mg DAILY NITEHS Administration Aspirin 81 mg 09/10/19 10:00 09/12/19 09:16 Asa - PO 81 mg DAILY NITESH Administration Atorvastatin Calcium 40 mg 09/10/19 08:22 09/11/19 21:14 Lipitor - PO 40 mg HS NITESH Administration Enoxaparin Sodium 40 mg 09/10/19 10:00 09/12/19 09:16 Lovenox - SQ 40 mg DAILY NITESH Administration Levothyroxine Sodium 25 mcg 09/10/19 07:00 09/12/19 06:45 Synthroid - PO 25 mcg DAILY@0700 NITESH Administration Pantoprazole Sodium 40 mg 09/10/19 10:00 09/12/19 09:16 Protonix - PO 40 mg BID NITESH Administration Risperidone 1 mg 09/09/19 22:00 09/12/19 09:16 Risperdal - PO 1 mg BID NITESH Administration ASSESSMENT/PLAN: Patient is a 74 yo female presented to the ED with chest pain for 1 day. Chest pain: likely MSK - EKG showed no ischemic changes - trops neg x2 - ASA daily - pain control with tylenol, prn lidocaine patch #HTN -continue Norvasc -BP elevated today -will continue to monitor, if persistently elevated will add Metoprolol #HLD - continue lipitor #GERD - recurrent uncontrolled reflux - Protonix 40mg daily - GI consulted. - Recommended EGD as outpatient #Schizophrenia - continue risperidone & abilify #DVT prophylaxis - Lovenox 40 mg SQ #FEN -Not on any standing fluids -Electrolytes wnl, routine bmp monitoring -Sodium restricted diet #Dispo -full code -PT done. recommended SNF -Patient to be discharged to SNF in tomorrow morning. Visit type - Emergency Visit Emergency Visit: Yes ED Registration Date: 09/09/19 Care time: The patient presented to the Emergency Department on the above date and was hospitalized for further evaluation of their emergent condition. - New Patient This patient is new to me today: Yes Date on this admission: 09/12/19 - Critical Care Critical Care patient: No - Medication Review Med list reviewed for High Risk Meds patients 65 and older: Yes ATTENDING PHYSICIAN STATEMENT I saw and evaluated the patient. I reviewed the resident's note and discussed the case with the resident. I agree with the resident's findings and plan as documented. SUBJECTIVE: OBJECTIVE: ASSESSMENT AND PLAN:
[2019-09-12] MEDS ORDERED: METOPROLOL TARTRATE 25 MG TABLET (FP) PO ONE (16:39)
--- NOTE | 2019-09-12 18:23 | PN ---
Teaching Attending Note Name of Resident: Criselda Daniels ATTENDING PHYSICIAN STATEMENT I saw and evaluated the patient. I reviewed the resident's note and discussed the case with the resident. I agree with the resident's findings and plan as documented. SUBJECTIVE: Patient seen and examined at bedside, labs unremarkable, no signs for ACS, stable for DC to SNF/jail facility. VSS. OBJECTIVE: GENERAL: Awake, alert, and fully oriented, in no acute distress. HEENT NC/AT, EOMI, neck supple LUNGS: CTAB, no crackles or wheezing HEART: Regular rate and rhythm, normal S1 and S2 without murmur, rub or gallop. ABDOMEN: Soft, obese, mildly tender to palpation in epigastric region MUSCULOSKELETAL: reproducible chest pain to palpation of left sternal border UPPER EXTREMITIES: 2+ pulses, warm, well-perfused. No cyanosis. No clubbing. No peripheral edema. 5/5 muscle strength LOWER EXTREMITIES: 2+ pulses, warm, well-perfused. No calf tenderness. No peripheral edema. Left knee more edematous. 3/5 muscle strength BL NEUROLOGICAL: Cranial nerves II-XII intact. Normal speech. PSYCHIATRIC: Cooperative. Anxious SKIN: Warm, dry, normal turgor, no rashes or lesions noted Vital Signs - 24 hr 09/11/19 09/12/19 09/12/19 21:00 02:15 04:13 Temperature 98.4 F 98.7 F Pulse Rate 78 72 79 Respiratory 20 19 22 H Rate Blood Pressure 135/54 L 127/55 L 129/57 L O2 Sat by Pulse 97 95 90 L Oximetry (%) 09/12/19 09/12/19 09/12/19 06:00 08:32 09:00 Temperature 98.7 F 97.7 F Pulse Rate 77 68 Respiratory 20 14 16 Rate Blood Pressure 136/65 142/59 L O2 Sat by Pulse 97 98 95 Oximetry (%) 09/12/19 09/12/19 09/12/19 12:00 14:32 18:00 Temperature 97.6 F 97.7 F 97.9 F Pulse Rate 74 96 H 99 H Respiratory 16 17 14 Rate Blood Pressure 154/63 165/66 156/77 O2 Sat by Pulse 98 98 97 Oximetry (%) Microbiology 09/09/19 18:30 Urine - Urine Clean Catch Urine Culture - Final Normal Urogenital Scarlet Laboratory Results - last 24 hr 09/09/19 09/11/19 09/12/19 21:14 21:15 06:42 D-Dimer Anticoagulation Therapy Puncture Site Patient Temperature ABG pH ABG pCO2 ABG pO2 ABG HCO3 ABG O2 Sat (Measured) ABG O2 Content ABG Base Excess Monty Test Patient On Oxygen O2 Delivery Device Oxygen Flow Rate Vent Mode Vent Rate Mechanical Rate PEEP Pressure Support Vent POC Glucometer 130 188 COVID-19 ([facility]) Not detected 09/12/19 09/12/19 09/12/19 11:12 11:37 12:01 D-Dimer 344 Anticoagulation Therapy No Result Required. Puncture Site Left radial Patient Temperature No Result Required. ABG pH 7.463 H ABG pCO2 27.50 L ABG pO2 101.5 H ABG HCO3 19.3 L ABG O2 Sat (Measured) 98.0 ABG O2 Content No Result Required. ABG Base Excess -3.1 L Monty Test Positive Patient On Oxygen No O2 Delivery Device No Result Required. Oxygen Flow Rate No Result Required. Vent Mode No Result Required. Vent Rate No Result Required. Mechanical Rate No Result Required. PEEP No Result Required. Pressure Support Vent No Result Required. POC Glucometer 217 COVID-19 ([facility]) 09/12/19 17:33 D-Dimer Anticoagulation Therapy Puncture Site Patient Temperature ABG pH ABG pCO2 ABG pO2 ABG HCO3 ABG O2 Sat (Measured) ABG O2 Content ABG Base Excess Monty Test Patient On Oxygen O2 Delivery Device Oxygen Flow Rate Vent Mode Vent Rate Mechanical Rate PEEP Pressure Support Vent POC Glucometer 165 COVID-19 ([facility]) Home Medications Medication Instructions Recorded Albuterol Sulfate Inhaler - 1 - 2 inh PO QID 06/11/18 [Ventolin HFA Inhaler -] Alendronate Sodium/Vitamin D3 70 mg PO Q7D 06/11/18 [Fosamax Plus D 70 mg-5,600 Iu vIT d] Aripiprazole [Abilify] 5 mg PO DAILY 06/11/18 Aspirin 81 mg PO DAILY 06/11/18 Clopidogrel Bisulfate [Plavix] 75 mg PO DAILY 06/11/18 Cyclobenzaprine HCl [Flexeril -] 10 mg PO TID 06/11/18 Ferrous Sulfate [Feosol] 325 mg PO DAILY 06/11/18 Levothyroxine [Synthroid -] 25 mcg PO DAILY 06/11/18 Pantoprazole Sodium [Protonix -] 20 mg PO DAILY 06/11/18 Risperidone [Risperdal] 1 mg PO BID 06/11/18 Solifenacin Succinate [Vesicare -] 10 mg PO DAILY 06/11/18 Tiotropium [place] [Spiriva] 1 inh PO DAILY 06/11/18 Amlodipine Besylate 5 mg PO DAILY 07/28/18 Fluticasone Prop 0.05% Nasal 1 spray NS BID 07/28/18 [Flonase -] Montelukast Sodium [Singulair] 10 mg PO DAILY 07/28/18 Acetaminophen [Tylenol] 650 mg PO PRN PRN 06/15/19 Atorvastatin Calcium 20 mg PO HS 06/15/19 Docusate Sodium [Colace] 100 mg PO HS 06/15/19 Fluticasone/Vilanterol [Breo 1 each IH DAILY 06/15/19 Ellipta 200-25 Mcg INH] Sennosides [Senna -] 1 tab PO BID #30 tablet 06/25/19 Polyethylene Glycol 3350 [Miralax 17 gm PO DAILY 30 Days #1 bottle 06/27/19 119 gm Btl -] Simethicone [Mylicon -] 80 mg PO Q4H PRN #30 tab.chew 06/27/19 Current Medications Generic Name Dose Route Start Last Admin Trade Name Freq PRN Reason Stop Dose Admin Acetaminophen 650 mg 09/11/19 19:45 09/12/19 06:45 Tylenol - PO 650 mg Q6H PRN Administration PAIN LEVEL 1-5 Amlodipine Besylate 5 mg 09/10/19 10:00 09/12/19 09:16 Norvasc - PO 5 mg DAILY NITESH Administration Aripiprazole 5 mg 09/10/19 10:00 09/12/19 09:16 Abilify PO 5 mg DAILY NITESH Administration Aspirin 81 mg 09/10/19 10:00 09/12/19 09:16 Asa - PO 81 mg DAILY NITESH Administration Atorvastatin Calcium 40 mg 09/10/19 08:22 09/11/19 21:14 Lipitor - PO 40 mg HS NITESH Administration Enoxaparin Sodium 40 mg 09/10/19 10:00 09/12/19 09:16 Lovenox - SQ 40 mg DAILY NITESH Administration Levothyroxine Sodium 25 mcg 09/10/19 07:00 09/12/19 06:45 Synthroid - PO 25 mcg DAILY@0700 NITESH Administration Pantoprazole Sodium 40 mg 09/10/19 10:00 09/12/19 09:16 Protonix - PO 40 mg BID NITESH Administration Risperidone 1 mg 09/09/19 22:00 09/12/19 09:16 Risperdal - PO 1 mg BID NITESH Administration ASSESSMENT AND PLAN: 74 F Costochondritis r/o ACS GERD HTN HLD Mood disorder Obesity Plan: Minimal improvement of CP w/ Toradol, no clinical signs for ACS or cardiac etiology of CP ?psychosomatic GI recommending OP EGD no s/o ACS COVID negative DC to SNF in AM and follow w/ Dr. Lynn Tavares (PCP) in 1 week
[2019-09-12] MEDS: ATORVASTATIN CA 40 MG TABLET (FP) PO SCH (21:08)
[2019-09-13] MEDS: LEVOTHYROXINE NA 25 MCG TABLET (FP) PO SCH (06:01)
[2019-09-13 07:58] LABS: CALCIUM 8.3 mg/dL (8.5-10.1); CREATININE 0.8 mg/dL (0.55-1.3)
[2019-09-13 09:00] VITALS: TEMP 97.8
[2019-09-13] MEDS: PANTOPRAZOLE 40 MG TABLET PO SCH (09:04)
[2019-09-13] MEDS: ASPIRIN 81 MG CHEWABLE TABLETS PO SCH (09:04)
[2019-09-13] MEDS: amLODIPine BESYLATE 5 MG TABLET (FP) PO SCH (09:04)
[2019-09-13] MEDS: ARIPiprazole 5 MG TABLET PO SCH (09:04)
[2019-09-13] MEDS: ENOXAPARIN NA (PORCINE) 40 MG/0.4 ML DISP.SYRIN SQ SCH (09:04)
[2019-09-13] MEDS ORDERED: METOPROLOL TARTRATE 25 MG TABLET (FP) PO SCH (10:00)
[2019-09-13] MEDS ORDERED: METOPROLOL TARTRATE 25 MG TABLET (FP) PO ONE (12:51)
[2019-09-13] MEDS: risperiDONE 1 MG TABLET PO SCH (12:53)
[2019-09-13 12:55] VITALS: BP 148/78; PULSE 112
--- NOTE | 2019-09-13 13:48 | PN ---
Teaching Attending Note Name of Resident: Criselda Daniels ATTENDING PHYSICIAN STATEMENT I saw and evaluated the patient. I reviewed the resident's note and discussed the case with the resident. I agree with the resident's findings and plan as documented. SUBJECTIVE: pt seen and examined at bedside, ready for discharge OBJECTIVE: Last Vital Signs Temp Pulse Resp BP Pulse Ox 97.8 F 112 H 17 148/78 98 09/13/19 08:58 09/13/19 12:54 09/13/19 12:54 09/13/19 12:54 09/13/19 12:54 GENERAL: Awake, alert, and fully oriented, in no acute distress. HEENT: AT/NC, neck supple LUNGS: Breath sounds equal, clear to auscultation bilaterally. No wheezes, and no crackles. No accessory muscle use. HEART: Regular rate and rhythm, normal S1 and S2 without murmur, rub or gallop. ABDOMEN: Soft, nontender, not distended, normoactive bowel sounds, no guarding, no rebound, no masses. No hepatomegaly or splenomegaly. MUSCULOSKELETAL: Normal range of motion at all joints. No bony deformities or tenderness. No CVA tenderness. tenderness at LSB UPPER EXTREMITIES: 2+ pulses, warm, well-perfused. No cyanosis. No clubbing. No peripheral edema. LOWER EXTREMITIES: 2+ pulses, warm, well-perfused. No calf tenderness. No peripheral edema. NEUROLOGICAL: Cranial nerves II-XII intact. Normal speech. Normal gait. PSYCHIATRIC: Cooperative. Good eye contact. Appropriate mood and affect. denies SI, loss of energy, hallucinations SKIN: Warm, dry, normal turgor, no rashes or lesions noted, normal capillary refill. CBCD WBC 8.6 K/mm3 (4.0-10.0) 09/11/19 05:43 RBC 4.11 M/mm3 (3.60-5.2) 09/11/19 05:43 Hgb 12.5 GM/dL (10.7-15.3) 09/11/19 05:43 Hct 38.3 % (32.4-45.2) 09/11/19 05:43 MCV 93.1 fl (80-96) 09/11/19 05:43 MCHC 32.7 g/dl (32.0-36.0) 09/11/19 05:43 RDW 13.5 % (11.6-15.6) 09/11/19 05:43 Plt Count 226 K/MM3 (134-434) 09/11/19 05:43 MPV 8.1 fl (7.5-11.1) 09/11/19 05:43 CMP Sodium 143 mmol/L (136-145) 09/13/19 06:05 Potassium 4.0 mmol/L (3.5-5.1) 09/13/19 06:05 Chloride 112 mmol/L (98-107) H 09/13/19 06:05 Carbon Dioxide 24 mmol/L (21-32) 09/13/19 06:05 Anion Gap 7 MMOL/L (8-16) L 09/13/19 06:05 BUN 14.0 mg/dL (7-18) 09/13/19 06:05 Creatinine 0.8 mg/dL (0.55-1.3) 09/13/19 06:05 Calcium 8.3 mg/dL (8.5-10.1) L 09/13/19 06:05 Total Bilirubin 0.5 mg/dL (0.2-1) 09/11/19 05:43 AST 10 U/L (15-37) L 09/11/19 05:43 ALT 15 U/L (13-61) 09/11/19 05:43 Alkaline Phosphatase 102 U/L (45-117) 09/11/19 05:43 Total Protein 5.6 g/dl (6.4-8.2) L 09/11/19 05:43 Albumin 3.2 g/dl (3.4-5.0) L 09/11/19 05:43 ASSESSMENT AND PLAN: Patient is a 74 yo female presented to the ED with chest pain for 1 day. Costochondritis ruled out ACS GERD HTN HLD Mood disorder Obesity Plan: GI recommending OP EGD COVID negative DC to SNF and follow w/ Dr. Lynn Tavares (PCP) in 1 week
--- NOTE | 2019-09-13 15:34 | DS ---
Physical Exam: SUBJECTIVE: Patient seen and examined OBJECTIVE: Vital Signs Period Temp Pulse Resp BP Sys/Lin Pulse Ox Last 24 Hr 97.8 F-98.3 F 60-112 12-17 125-156/58-78 94-98 PHYSICAL EXAM GENERAL: The patient is awake, alert, and fully oriented, in no acute distress. NECK:full range of motion, supple. LUNGS: Breath sounds equal, clear to auscultation bilaterally HEART: Regular rate and rhythm, S1, S2 ABDOMEN: Soft, nontender, nondistended, normoactive bowel sounds EXTREMITIES: 2+ pulses, warm, well-perfused, no edema. NEUROLOGICAL: Cranial nerves II through XII grossly intact. Normal speech PSYCH: Normal mood, normal affect. SKIN: Warm, dry, normal turgor LABS Laboratory Results - last 24 hr 09/12/19 09/12/19 09/13/19 17:33 21:07 06:05 Sodium 143 Potassium 4.0 Chloride 112 H Carbon Dioxide 24 Anion Gap 7 L BUN 14.0 Creatinine 0.8 Est GFR (CKD-EPI)AfAm 84.77 Est GFR (CKD-EPI)NonAf 73.14 POC Glucometer 165 174 Random Glucose 111 H Calcium 8.3 L HOSPITAL COURSE: Date of Admission:09/09/19 Date of Discharge: 09/13/19 Patient is a 74 yo female presented to the ED with chest pain for 1 day. EKG showed no ischemic changes, trops neg x2. Patient was given tylenol and lidocaine patch with improvement pain. Tele monitoring showed no acute events. Patient was also evaluated by GI for GERD and recommended outpatient EGD. Patient was evaluated by PT and recommended to continue physical therapy at SNF. PAtient was discharged to SNF. Minutes to complete discharge: 36 Discharge Summary Problems reviewed: Yes Reason For Visit: CHEST PAIN Condition: Stable - Instructions Diet, Activity, Other Instructions: Your visit You were admitted to the hospital because you had chest pain. Your heart was monitored and no significant events were noted. This was likely caused by muscular pain. You are now stable to be discharged back to [facility] to continue rehab. Medications Please continue your home medications. Follow up Please follow up with your primary care doctor (Dr. Tavares) within 1 week. Please follow up with the glazier supervisor (Dr. Diez) for further work up of the acid reflux Additional info Please call 911 or go to the ED if with any worsening fevers, chills, headache, dizziness, chest pain, shortness of breath, belly pain or any new concerns noted. Referrals: Rosalio Diez DO [Staff Physician] - Lynn Tavares MD [Primary Care Provider] - Disposition: SNF FACILITY - Home Medications Comprehensive Discharge Medication List: Ambulatory Orders Albuterol Sulfate Inhaler - [Ventolin HFA Inhaler -] 1 - 2 inh PO QID 06/11/18 Alendronate Sodium/Vitamin D3 [Fosamax Plus D 70 mg-5,600 Iu vIT d] 70 mg PO Q7D 06/11/18 Aripiprazole [Abilify] 5 mg PO DAILY 06/11/18 Aspirin 81 mg PO DAILY 06/11/18 Clopidogrel Bisulfate [Plavix] 75 mg PO DAILY 06/11/18 Cyclobenzaprine HCl [Flexeril -] 10 mg PO TID 06/11/18 Ferrous Sulfate [Feosol] 325 mg PO DAILY 06/11/18 Levothyroxine [Synthroid -] 25 mcg PO DAILY 06/11/18 Pantoprazole Sodium [Protonix -] 20 mg PO DAILY 06/11/18 Risperidone [Risperdal] 1 mg PO BID 06/11/18 Solifenacin Succinate [Vesicare -] 10 mg PO DAILY 06/11/18 Tiotropium [place] [Spiriva] 1 inh PO DAILY 06/11/18 Amlodipine Besylate 5 mg PO DAILY 07/28/18 Fluticasone Prop 0.05% Nasal [Flonase -] 1 spray NS BID 07/28/18 Montelukast Sodium [Singulair] 10 mg PO DAILY 07/28/18 Acetaminophen [Tylenol] 650 mg PO PRN PRN 06/15/19 Atorvastatin Calcium 20 mg PO HS 06/15/19 Docusate Sodium [Colace] 100 mg PO HS 06/15/19 Fluticasone/Vilanterol [Breo Ellipta 200-25 Mcg INH] 1 each IH DAILY 06/15/19 Sennosides [Senna -] 1 tab PO BID #30 tablet 06/25/19 Polyethylene Glycol 3350 [Miralax 119 gm Btl -] 17 gm PO DAILY 30 Days #1 bottle 06/27/19 Simethicone [Mylicon -] 80 mg PO Q4H PRN #30 tab.chew 06/27/19 This patient is new to me today: No Emergency Visit: Yes ED Registration Date: 09/09/19 Care time: The patient presented to the Emergency Department on the above date and was hospitalized for further evaluation of their emergent condition. Critical Care patient: No - Discharge Referral Referred to [facility] No ATTENDING PHYSICIAN STATEMENT I saw and evaluated the patient. I reviewed the resident's note and discussed the case with the resident. I agree with the resident's findings and plan as documented. SUBJECTIVE: OBJECTIVE: ASSESSMENT AND PLAN:
== END 2019-09-13 13:21 | DRG 206 ==
LOC: JER 12:51 → JICU 19:17 → OBSVTOIN 21:09 → JER 23:12 → JICU 23:12
PROVIDERS: ADMIT Internal Medicine; ATTEND Student in an Organized Health Care Education/Training Program
DX: M94.0 Chondrocostal junction syndrome [Tietze] (principal); J44.9 Chronic obstructive pulmonary disease, unspecified; Z99.81 Dependence on supplemental oxygen; K21.9 Gastro-esophageal reflux disease without esophagitis; I10 Essential (primary) hypertension; E78.5 Hyperlipidemia, unspecified; Z88.0 Allergy status to penicillin; E03.9 Hypothyroidism, unspecified; D64.9 Anemia, unspecified; G40.909 Epilepsy, unspecified, not intractable, without status epilepticus; G20 Parkinson's disease; E88.09 Other disorders of plasma-protein metabolism, not elsewhere classified; E66.9 Obesity, unspecified; Z68.30 Body mass index [BMI] 30.0-30.9, adult; F20.9 Schizophrenia, unspecified; F39 Unspecified mood [affective] disorder; K57.90 Diverticulosis of intestine, part unspecified, without perforation or abscess without bleeding
CPT/HCPCS: 36415; 36600; 71045-TC-FY; 71101-TC-LT-FY; 74177-TC; 80048; 80053; 80061; 81003; 82550; 82803; 82962; 83036; 83690; 83721; 83735; 84100; 84484; 85025; 85027; 85379; 85610; 87086; 93005; 93010; 97116-GP; 99285-25; G0378; J0131; J2794; Q9967; U0003

== ENCOUNTER 2019-10-30 13:40 | Inpatient (IN) | payer OTHER ==
--- OUTSIDE RECORDS SUMMARY | 2019-10-30 14:05 | XMS ---
:1945 Author Organization [facility] Care Team Providers Name Role Phone [facility], [facility]9 Unavailable Unavailable Re-disclosure Warning The records that you are about to access may contain information from federally- assisted alcohol or drug abuse programs. If such information is present, then the following federally mandated warning applies: This information has been disclosed to you from records protected by federal confidentiality rules (42 CFR part 2). The federal rules prohibit you from making any further disclosure of this information unless further disclosure is expressly permitted by the written consent of the person to whom it pertains or as otherwise permitted by 42 CFR part 2. A general authorization for the release of medical or other information is NOT sufficient for this purpose. The Federal rules restrict any use of the information to criminally investigate or prosecute any alcohol or drug abuse patient.The records that you are about to access may contain highly sensitive health information, the redisclosure of which is protected by Article 27-F of the [facility] Public Health law. If you continue you may haveaccess to information: Regarding HIV / AIDS; Provided by facilities licensed or operated by the [facility] Office of Mental Health; or Provided by the [facility] Office for People With Developmental Disabilities. If such information is present, then the following [facility] mandated warning applies: This information has been disclosed to you from confidential records which are protected by state law. State law prohibits you from making any further disclosure of this information without the specific written consent of the person to whom it pertains, or as otherwise permitted by law. Any unauthorized further disclosure in violation of state law may result in a fine or snf sentence or both. A general authorization for the release of medical or other information is NOT sufficient authorization for further disclosure. Encounters Encounter Providers Location Date Indications Data Source(s ) Outpatient Attender: [id number] 09/10/2019 [facility] ([facility] 11:21:18 AM Care German curiel) EDT Patient admitted. Outpatient Attender: [id number] [facility] 03/29/2019 11:49:34 AM [facility] ([facility] EST [facility]) Patient admitted. Outpatient Attender: [id number] [facility] 11/19/2018 03:42:00 PM [facility] Patient admitted. Outpatient [facility] Care 04/06/2018 12:00:00 AM eCW3 ([facility] A28 EST - 04/06/2018 12:00:00 Health Care) AM EST Insurance Providers Payer name Policy type Policy ID Covered Covered democrat's Policy P delia / Coverage democrat ID relationship to Zayas Inf ormation type zayas MEDICARE [id number] SP [id number] 05 5 MEDICAID [id number] SP [id number] MEDICARE [id number] SP [id number] 05 5 Results ID Date Data Source [id number] 09/09/2019 09:14:00 PM EDT [facility] Name Value Range Interpretation Description Data Sup porting Code Source(s) Document(s ) SARS [facility] coronavirus 2 RNA This lab was ordered by [facility] and reported by [facility]. ID Date Data Source [id number] 06/25/2019 05:00:00 PM EDT [facility] Name Value Range Interpretation Description Data Sup porting Code Source(s) Document(s ) SARS [facility] CORONAVIRUS 2 RNA This lab was ordered by [facility] and reported by [facility]. ID Date Data Source [id number] 06/16/2019 12:32:00 AM EDT [facility] Name Value Range Interpretation Description Data Sup porting Code Source(s) Document(s ) SARS [facility] CORONAVIRUS 2 RNA This lab was ordered by [facility] and reported by [facility]. Procedure Social History Code Duration Value Status Description Data Source(s ) Smoking 04/06/2018 12:00:00 Never Smoker completed Never Smoker e CW3 ([facility]) Never Smoker completed Never Smoker eCW3 ([facility]) Vital Signs ID Date Data Source UNK Name Value Range Interpretation Code Description Data Source(s) Diastolic blood 79 mm[Hg] 79 mm[Hg] eCW3 ([facility]) Systolic blood 142 mm[Hg] 142 mm[Hg] eCW3 ([facility]) Body temperature 98.0 [degF] 98.0 [degF] eCW3 ( [facility]) Heart rate 20 /min 20 /min eCW3 ([facility]) Body mass index 32.92 kg/m2 32.92 kg/m2 eCW3 ([facility] everette (BMI) [Ratio] [facility]) Body weight 180 [lb_av] 180 [lb_av] eCW3 ([facility]) Body height 62 [in_i] 62 [in_i] eCW3 ([facility])
--- NOTE | 2019-10-30 14:10 | PDOC ---
History of Present Illness - General Chief Complaint: Pain Stated Complaint: ABDOMINAL PAIN Time Seen by Provider: 10/30/19 14:02 - History of Present Illness Initial Comments: Stoney Rodriguez is a 74 y/o female with PMH significant for HTN, HLD, COPD, asthma, anemia, hypothyroidism, GERD, seizure disorder, Parkinson's, BIBEMS today from [facility] for abdominal pain. Reports LLQ abdominal pain that is sharp, non-radiating, and constant that started last night after she ate half a pizza. Has not tried anything to make it better. Reports mild subjective fever. Vomiting x2 yesterday NBNB and a few episodes of non bloody diarrhea. She was seen here two months ago for similar pain (though in the epigastric area) and CT abd was negative. Denies chest pain/shortness of breath. Denies cough/headache/dizziness. No leg pain/back pain. SurgHx: denies. Prior SBO medically managed. SocHx: denies etoh/smoking/drugs Past History - Medical History Allergies/Adverse Reactions: Allergies Allergy/AdvReac Type Severity Reaction Status Date / Time morphine Allergy Unknown Verified 10/30/19 15:50 Penicillins Allergy Unknown Verified 10/30/19 15:50 strawberry Allergy Unknown Verified 10/30/19 15:49 chocolate Allergy Unknown Uncoded 04/04/19 13:50 Home Medications: Ambulatory Orders Acetaminophen 650 mg PO BID 10/30/19 Alendronate Sodium [Fosamax] 1 tab PO WEEKLY 10/30/19 Aripiprazole 5 mg PO DAILY 10/30/19 Aspirin [Aspirin EC] 81 mg PO DAILY 10/30/19 Clopidogrel Bisulfate [Clopidogrel] 75 mg PO DAILY 10/30/19 Cyclobenzaprine HCl 10 mg PO Q8H 10/30/19 Diclofenac Potassium 50 mg PO DAILY 10/30/19 Famotidine 20 mg PO HS 10/30/19 Ferrous Sulfate [Feosol] 325 mg PO DAILY 10/30/19 Fluticasone Prop 0.05% Nasal [Flonase -] 1 spray IN BID 10/30/19 Levothyroxine [Synthroid -] 25 mcg PO DAILY 10/30/19 Montelukast Na [Singulair -] 10 mg PO DAILY 10/30/19 Polyethylene Glycol 3350 [Miralax (For Daily Use) -] 17 gm PO DAILY 10/30/19 Pravastatin Sodium [Pravachol (Nf)] 80 mg PO DAILY 10/30/19 Risperidone 1 mg PO BID 10/30/19 Sennosides [Senna] 8.6 mg PO BID 10/30/19 Simethicone 80 mg PO Q4H PRN 10/30/19 Solifenacin Succinate [Vesicare -] 10 mg PO DAILY 10/30/19 Anemia: Yes Asthma: Yes Cancer: No Cardiac Disorders: (hx of chest pain) CVA: No COPD: Yes (PT STATED , HOME O2) CHF: No DVT: No Dementia: No Diabetes: No GI Disorders: Yes (GERD) Disorders: Yes (incontinence) HTN: Yes Hypercholesterolemia: Yes Liver Disease: No Psychiatric Problems: Yes (BiPolar) Seizures: Yes Thyroid Disease: Yes (HYPO.) - Surgical History Abdominal Surgery: No Appendectomy: No Cardiac Surgery: No Cholecystectomy: No Lung Surgery: No Neurologic Surgery: No Orthopedic Surgery: No - Immunization History Td Vaccination: (unknown) Immunization Up to Date: No - Psycho-Social/Smoking History Smoking Status: No Smoking History: Never smoked Years of Tobacco Use: 0 Have you smoked in the past 12 months: No Number of Cigarettes Smoked Daily: 0 Cigars Per Day: 0 Abd/GI Specific PMHX - Complaint Specific PMHX GI Ulcer Disease: No Review of Systems - Review of Systems Comments:: GENERAL/CONSTITUTIONAL: +subjective fever. No chills. No weakness._ HEAD, EYES, EARS, NOSE AND THROAT: No change in vision. No change in hearing. No sore throat._ CARDIOVASCULAR: No chest pain or shortness of breath_ RESPIRATORY: Denies cough, hemoptysis_ GASTROINTESTINAL: +nausea/vomiting, +abdominal pain, +diarrhea GENITOURINARY: No dysuria, frequency, or change in urination._ MUSCULOSKELETAL: No joint or muscle swelling or pain. No neck or back pain._ SKIN: No rash_ NEUROLOGIC: No headache, vertigo, loss of consciousness, or change in strength/sensation._ ENDOCRINE: No increased thirst. No abnormal weight change_ HEMATOLOGIC/LYMPHATIC: No anemia, easy bleeding, or history of blood clots._ ALLERGIC/IMMUNOLOGIC: No hives or skin allergy._ *Physical Exam - Physical Exam GENERAL: Awake, alert, and oriented to person/place/time, in no acute distress_ HEAD: No signs of trauma, normocephalic, atraumatic _ EYES: PERRLA, EOMI, sclera anicteric, conjunctiva clear_ ENT: Hearing grossly normal, nares patent, oropharynx clear without exudates. No uvular deviation. Moist mucosa_ NECK: Normal ROM, supple, no lymphadenopathy, JVD, or masses_ LUNGS: No distress, speaks in full sentences, clear to auscultation bilaterally _ HEART: Regular rate and rhythm, normal S1 and S2, no murmurs appreciated, peripheral pulses normal and equal bilaterally._ ABDOMEN: Soft, protuberant, mild TTP diffusely worse in the LLQ, no rebound, no guarding. EXTREMITIES: Normal inspection, Normal range of motion, no edema. No clubbing or cyanosis_ NEUROLOGICAL: Cranial nerves II through XII grossly intact. Normal speech, normal gait, no focal sensorimotor deficits _ SKIN: Warm, Dry, normal turgor, no rashes or lesions noted_ ED Treatment Course - LABORATORY CBC & Chemistry Diagram: 10/30/19 15:10 10/30/19 15:10 Medical Decision Making - Medical Decision Making 10/30/19 14:12 74F multiple comorbidities presenting today with abd pain worse in the LLQ that started yesterday. Reports that this feels similar to her abd pain 2 months ago, though last time her pain was epigastric. CT scan done at last visit was negative. States that she has subjective fever. DDx includes gastritis vs diverticulitis vs SBO. -cbc, cmp -ekg, trop -ua, ucx -lactic -lipase -GI cocktail -tylenol -CT abd pelv 10/30/19 14:24 EKG shows NSR, 100 bpm, no axis deviation, CT 180, QTc 451, no ST elevation/depression. Prior EKG 09/2019 reviewed and no significant interval change. 10/30/19 16:09 Labs reviewed. Will treat UTI with rocephin. Laboratory Last Values WBC 9.6 K/mm3 (4.0-10.0) 10/30/19 15:10 RBC 4.55 M/mm3 (3.60-5.2) 10/30/19 15:10 Hgb 13.9 GM/dL (10.7-15.3) 10/30/19 15:10 Hct 42.5 % (32.4-45.2) 10/30/19 15:10 MCV 93.3 fl (80-96) 10/30/19 15:10 MCH 30.6 pg (25.7-33.7) 10/30/19 15:10 MCHC 32.8 g/dl (32.0-36.0) 10/30/19 15:10 RDW 14.2 % (11.6-15.6) 10/30/19 15:10 Plt Count 250 K/MM3 (134-434) 10/30/19 15:10 MPV 8.6 fl (7.5-11.1) 10/30/19 15:10 Absolute Neuts (auto) 7.7 K/mm3 (1.5-8.0) 10/30/19 15:10 Neutrophils % 79.9 % (42.8-82.8) 10/30/19 15:10 Lymphocytes % 13.8 % (8-40) D 10/30/19 15:10 Monocytes % 4.9 % (3.8-10.2) 10/30/19 15:10 Eosinophils % 1.0 % (0-4.5) 10/30/19 15:10 Basophils % 0.4 % (0-2.0) 10/30/19 15:10 Nucleated RBC % 0 % (0-0) 10/30/19 15:10 Sodium 140 mmol/L (136-145) 10/30/19 15:10 Potassium 4.1 mmol/L (3.5-5.1) 10/30/19 15:10 Chloride 110 mmol/L (98-107) H 10/30/19 15:10 Carbon Dioxide 23 mmol/L (21-32) 10/30/19 15:10 Anion Gap 7 MMOL/L (8-16) L 10/30/19 15:10 BUN 17.5 mg/dL (7-18) 10/30/19 15:10 Creatinine 1.0 mg/dL (0.55-1.3) 10/30/19 15:10 Est GFR (CKD-EPI)AfAm 64.73 10/30/19 15:10 Est GFR (CKD-EPI)NonAf 55.85 10/30/19 15:10 Random Glucose 120 mg/dL (74-106) H 10/30/19 15:10 Calcium 8.8 mg/dL (8.5-10.1) 10/30/19 15:10 Total Bilirubin 0.6 mg/dL (0.2-1) 10/30/19 15:10 AST 19 U/L (15-37) 10/30/19 15:10 ALT 18 U/L (13-61) 10/30/19 15:10 Alkaline Phosphatase 101 U/L (45-117) 10/30/19 15:10 Creatine Kinase 82 U/L (26-192) 10/30/19 15:10 Troponin I < 0.02 ng/ml (0.00-0.05) 10/30/19 15:10 Total Protein 6.0 g/dl (6.4-8.2) L 10/30/19 15:10 Albumin 3.3 g/dl (3.4-5.0) L 10/30/19 15:10 Lipase 22 U/L (73-393) L 10/30/19 15:10 Urine Color Dk yellow 10/30/19 15:30 Urine Appearance Cloudy 10/30/19 15:30 Urine pH 6.0 (5.0-8.0) 10/30/19 15:30 Ur Specific [place] 1.033 (1.010-1.035) 10/30/19 15:30 Urine Protein Trace (NEGATIVE) 10/30/19 15:30 Urine Glucose (UA) Negative (NEGATIVE) 10/30/19 15:30 Urine Ketones Trace (NEGATIVE) H 10/30/19 15:30 Urine Blood Negative (NEGATIVE) 10/30/19 15:30 Urine Nitrite Negative (NEGATIVE) 10/30/19 15:30 Urine Bilirubin 1+ (NEGATIVE) H 10/30/19 15:30 Urine Urobilinogen 1.0 mg/dL (0.2-1.0) 10/30/19 15:30 Ur Leukocyte Esterase 2+ (NEGATIVE) H 10/30/19 15:30 Urine WBC (Auto) 1212 /uL (0-25.8) 10/30/19 15:30 Urine Casts (Auto) 1 /uL (0-3.1) 10/30/19 15:30 U Epithel Cells (Auto) 13 /uL (0-25.1) 10/30/19 15:30 Urine Bacteria (Auto) 849 /uL (0-1359) 10/30/19 15:30 10/30/19 19:05 NG tube: 18 belarusian tube placed in right nare at 60cm. Intermittent suction with good GI content return. CXR ordered. 10/30/19 19:09 CT abd pelv shows: Fluid-filled distended large and small bowel with greater distention and small bowel. Transition is identified in the left mid abdomen. No obstructing mass. Moderate fluid in the cul-de-sac. No free air or abscess. Findings may be secondary to ileus recommend follow-up. 10/30/19 19:16 Case d/w Dr. Gabriel who will evaluate the patient. Requests CT abd w/ PO contrast. Pt s/o to Dr. Zaragoza and Dr. Tsang pending admission. Discharge - Discharge Information Problems reviewed: Yes Clinical Impression/Diagnosis: SBO (small bowel obstruction) Condition: Stable - Admission Yes - Follow up/Referral - Patient Discharge Instructions - Post Discharge Activity
[2019-10-30] MEDS ORDERED: ACETAMINOPHEN 1000 MG/100 ML VIAL (NON FORMULARY) IVPB ONE (14:33)
[2019-10-30] MEDS ORDERED: MAG HYDROX/AL HYDROX/SIMETH -MYLANTA- ORAL SUSPENSION PO ONE (14:33)
[2019-10-30] MEDS ORDERED: LIDOCAINE VISCOUS 2% ORAL/TOP 20 ML UNIT-DOSE CUP MM ONE (14:33)
[2019-10-30] MEDS ORDERED: FAMOTIDINE 20 MG/50 ML IVPB 20 MG/50 ML MG IVPB ONE ×2 (14:33→15:16)
[2019-10-30 14:50] VITALS: BMI 32.9
[2019-10-30] MEDS ORDERED: ACETAMINOPHEN INJECTION 100 ML IVPB ONE (15:16)
[2019-10-30] MEDS ORDERED: MAG HYDROX/AL HYDROX/SIMETH 30 ML UNIT-DOSE CUP ONE (15:16)
[2019-10-30] MEDS ORDERED: LIDOCAINE VISCOUS 2% ORAL/TOP 20 ML UNIT-DOSE CUP ONE (15:16)
--- NOTE | 2019-10-30 15:29 | PDOC ---
Documentation entered by Rosy Mendes SCRIBE, acting as scribe for Daniel Cerna MD. Daniel Cerna MD: This documentation has been prepared by the feliibVaughn gama Ana, SCRIBE, under my direction and personally reviewed by me in its entirety. I confirm that the documentation accurately reflects all work, treatment, procedures, and medical decision making performed by me. Attending Attestation - Resident Resident Name: Cameron Ospina - ED Attending Attestation I have performed the following: I have examined & evaluated the patient, The case was reviewed & discussed with the resident, I agree w/resident's findings & plan, Exceptions are as noted - HPI HPI: 10/30/19 14:04 Patient is a 74 year old female with a significant past medical history of seizure disorder, asthma, hypertension, hyperlipidemia, hypothyroidism, Par kinson's Disease, COPD, GERD, and anemia, who presents to the ED, BIBA, with abdominal pain. Patient stated the last thing she ate last night was a slice of pizza before the onset of her symptoms. Patient described her pain as "constant", "sharp", diffuse. Patient also reports 2 episodes of NBNB vomiting and various episodes of non-bloody diarrhea. Patient endorses: mild fever Patient denies: dizziness, headache, SOB, cough, chest pain, back pain, pain in lower extremities, or any other related symptoms. Allergies: morphine, penicillins, and chocolate. - Physicial Exam PE: 10/30/19 14:05 See resident exam. - Medical Decision Making 10/30/19 15:30 74 F with abdominal pain, vomiting. Has h/o SBOs. - Labs - CTAP Discharge - Discharge Information Problems reviewed: Yes Clinical Impression/Diagnosis: SBO (small bowel obstruction), Generalized abdominal pain, Nausea & vomiting Condition: Stable - Follow up/Referral - Patient Discharge Instructions - Post Discharge Activity
[2019-10-30] MEDS ORDERED: SODIUM CHLORIDE 0.9% 500 ML INFUS.BAG IV ONE (15:30)
[2019-10-30 15:33] LABS: BASO % 0.4 % (0-2.0); HEMATOCRIT 42.5 % (32.4-45.2); HEMOGLOBIN 13.9 GM/dL (10.7-15.3); LYMPH % 13.8 % (8-40); MCH 30.6 pg (25.7-33.7); MCHC 32.8 g/dl (32.0-36.0); MEAN CELL VOLUME 93.3 fl (80-96); MEAN PLT VOLUME 8.6 fl (7.5-11.1); MONO % 4.9 % (3.8-10.2); NEUT % 79.9 % (42.8-82.8); PLATELET COUNT 250 K/MM3 (134-434); RBC 4.55 M/mm3 (3.60-5.2); RDW 14.2 % (11.6-15.6); WHITE BLOOD COUNT 9.6 K/mm3 (4.0-10.0)
[2019-10-30 15:53] LABS: EPI CELLS 13 /uL (0-25.1); HYALINE CASTS 1 /uL (0-3.1); URINE APPEARANCE CLOUDY; URINE BACTERIA 849 /uL (0-1359); URINE BILIRUBIN 1+ (NEGATIVE); URINE COLOR DK YELLOW; URINE GLUCOSE (UA) NEGATIVE (NEGATIVE); URINE KETONE TRACE (NEGATIVE); URINE LEUK ESTERASE 2+ (NEGATIVE); URINE NITRITE NEGATIVE (NEGATIVE); URINE PROTEIN TRACE (NEGATIVE); URINE WBC 1212 /uL (0-25.8)
[2019-10-30 15:56] LABS: ALBUMIN 3.3 g/dl (3.4-5.0); ALK PHOS 101 U/L (45-117); ANION GAP 7 MMOL/L (8-16); BILIRUBIN,TOTAL 0.6 mg/dL (0.2-1); BLOOD UREA NITROGEN 17.5 mg/dL (7-18); CALCIUM 8.8 mg/dL (8.5-10.1); CHLORIDE 110 mmol/L (98-107); CO2 23 mmol/L (21-32); GLUCOSE,RANDOM 120 mg/dL (74-106); LIPASE 22 U/L (73-393); POTASSIUM 4.1 mmol/L (3.5-5.1); SGOT/AST 19 U/L (15-37); SGPT/ALT 18 U/L (13-61); SODIUM 140 mmol/L (136-145)
[2019-10-30] MEDS ORDERED: CEFTRIAXONE 1 GM in DEXTROSE 5%-WATER - 100 ML IVPB ONE (16:03)
[2019-10-30] MEDS ORDERED: ONDANSETRON 4 MG/2 ML VIAL IVPUSH ONE (16:32)
[2019-10-30] MEDS ORDERED: CEFTRIAXONE 1 GM/50 ML BAG ONE (16:33)
[2019-10-30 18:29] LABS: URINE CRYSTALS REVIEW /hpf; URINE RBC 37.8 /uL (0-23.9)
--- OUTSIDE RECORDS SUMMARY | 2019-10-30 19:48 | XMS ---
:1945 Author Organization [facility] Care Team Providers Name Role Phone [facility], [facility]9 Unavailable Unavailable Re-disclosure Warning The records that [...] is protected by Article 27-F of the [facility] Public Health law. If you continue you may haveaccess to information: Regarding HIV / AIDS; Provided by facilities licensed or operated by the [facility] Office of Mental Health; or Provided by the [facility] Office for People With Developmental Disabilities. If such information is present, then the following [facility] mandated warning applies: This information has [...] law may result in a fine or halfway sentence or both. A general authorization for the release of medical or other information is NOT sufficient authorization for further disclosure. Encounters Encounter Providers Location Date Indications Data Source(s ) Outpatient Attender: [id number] 09/10/2019 [facility] ([facility] 11:21:18 AM Care German curiel) EDT Patient admitted. Outpatient Attender: [id number] [facility] 03/29/2019 11:49:34 AM [facility] ([facility] EST [facility]) Patient admitted. Outpatient Attender: [id number] [facility] 11/19/2018 03:42:00 PM [facility] ([facility] EDT [facility]) Patient admitted. Outpatient [facility] Care 04/06/2018 12:00:00 AM eCW3 ([facility] A28 EST - 04/06/2018 12:00:00 Health Care) AM EST Insurance Providers Payer name Policy type Policy ID Covered Covered libertarian's Policy P delia / Coverage libertarian ID relationship to [employer] Inf ormation type zayas MEDICARE [id number] SP [id number] 05 5 MEDICAID [id number] SP [id number] MEDICARE [id number] SP [id number] 05 5 Results ID Date Data Source [id number] 09/09/2019 09:14:00 PM EDT [facility] Name Value Range Interpretation Description Data Sup porting Code Source(s) Document(s ) SARS [facility] coronavirus 2 RNA This lab was ordered by [facility] and reported by [facility]. ID Date Data Source [id number] 06/25/2019 05:00:00 PM EDT [facility] Name Value Range Interpretation Description Data Sup porting Code Source(s) Document(s ) SARS [facility] CORONAVIRUS 2 RNA This lab was ordered by [facility] and reported by [facility]. ID Date Data Source [id number] 06/16/2019 12:32:00 AM EDT [facility] Name Value Range Interpretation Description Data Sup porting Code Source(s) Document(s ) SARS [facility] CORONAVIRUS 2 RNA This lab was ordered by [facility] and reported by [facility]. Procedure Social History Code Duration Value Status Description Data Source(s ) Smoking 04/06/2018 12:00:00 Never Smoker completed Never Smoker e CW3 ([facility]) Never Smoker completed Never Smoker eCW3 ([facility]) Vital Signs ID Date Data Source UNK Name Value Range Interpretation Code Description Data Source(s) Diastolic blood 79 mm[Hg] 79 mm[Hg] eCW3 ([facility]) Systolic blood 142 mm[Hg] 142 mm[Hg] eCW3 ([facility]) Body temperature 98.0 [degF] 98.0 [degF] eCW3 ( [facility]) Heart rate 20 /min 20 /min eCW3 ([facility]) Body mass index 32.92 kg/m2 32.92 kg/m2 eCW3 ( everette (BMI) [Ratio] [facility]) Body weight 180 [lb_av] 180 [lb_av] eCW3 ([facility]) Body height 62 [in_i] 62 [in_i] eCW3 ([facility])
[2019-10-30] MEDS ORDERED: SODIUM CHLORIDE 1,000 ML IV SCH (20:45)
--- NOTE | 2019-10-30 20:45 | PN ---
Teaching Attending Note Name of Resident: Aleexi Mitchell ATTENDING PHYSICIAN STATEMENT I saw and evaluated the patient. I reviewed the resident's note and discussed the case with the resident. I agree with the resident's findings and plan as documented. SUBJECTIVE: 74yoF with history of HTN, HLD, COPD, anemia, hypothyroidism, GERD, seizure diso rder no longer on antiepileptics, and Parkinson who presents from [facility] with abdominal pain, vomiting, and diarrhea. Patient reports progressive symptoms for several weeks but acutely worsened in the last 1-2 days, also had subjective fever yesterday. Notes she had similar symptoms earlier this year, was admitted for partial SBO in June 2019, which resolved with conservative management. At time of evaluation she is complaining of diffuse abdominal pain and distention. Has been passing gas today. Afebrile and hemodynamically stable in the ED. She reports multiple episodes of vomiting and diarrhea since arrival. Labs unremarkable with exception of UA which is grossly positive for UTI. CT abd/pelvis with IV contrast showed fluid filled distended large and small bowel with greater distention in small bowel, transition in the left mid abdomen, findings may be secondary to ileus. NG tube was placed and surgery was consulted with recommendation for CT abd/pelvis with PO contrast. She received ceftriaxone. ROS: (+) abd pain, distention, dysuria, urinary frequency, fever, nausea, vomiting, diarrhea (-) melena, hematochezia, hematemesis OBJECTIVE: Vital Signs - 24 hr 10/30/19 10/30/19 14:05 17:00 Temperature 98.5 F 98 F Pulse Rate 93 H Pulse Rate [ 88 Apical] Respiratory 20 20 Rate Blood Pressure 133/59 L Blood Pressure 133/55 L [Right Arm] O2 Sat by Pulse 97 96 Oximetry (%) EXAM Gen: awake, alert, uncomfortable appearing but in no acute distress HEENT: NC/AT. NG tube in place, roughly 1L dark liquid in canister CV: RRR, no MRG appreciated Resp: CTAB, unlabored breathing Abd: Distended, diffuse tenderness to palpation without rebound/guarding. Hypoactive bowel sounds Ext: No edema Neuro: moving all extremities Psych: AOx3, appropriate mood/affect Laboratory Results - last 24 hr 10/30/19 10/30/19 10/30/19 15:10 15:10 15:30 WBC 9.6 RBC 4.55 Hgb 13.9 Hct 42.5 MCV 93.3 MCH 30.6 MCHC 32.8 RDW 14.2 Plt Count 250 MPV 8.6 Absolute Neuts (auto) 7.7 Neutrophils % 79.9 Lymphocytes % 13.8 D Monocytes % 4.9 Eosinophils % 1.0 Basophils % 0.4 Nucleated RBC % 0 Sodium 140 Potassium 4.1 Chloride 110 H Carbon Dioxide 23 Anion Gap 7 L BUN 17.5 Creatinine 1.0 Est GFR (CKD-EPI)AfAm 64.73 Est GFR (CKD-EPI)NonAf 55.85 Random Glucose 120 H Calcium 8.8 Total Bilirubin 0.6 AST 19 ALT 18 Alkaline Phosphatase 101 Creatine Kinase 82 Troponin I < 0.02 Total Protein 6.0 L Albumin 3.3 L Lipase 22 L Urine Color Dk yellow Urine Appearance Cloudy Urine pH 6.0 Ur Specific [place] 1.033 Urine Protein Trace Urine Glucose (UA) Negative Urine Ketones Trace H Urine Blood Negative Urine Nitrite Negative Urine Bilirubin 1+ H Urine Urobilinogen 1.0 Ur Leukocyte Esterase 2+ H Urine WBC (Auto) 1212 Urine RBC (Auto) 37.8 Urine Casts (Auto) 1 U Epithel Cells (Auto) 13 Urine Crystals (Auto) Review A* Urine Bacteria (Auto) 849 Imaging reviewed in chart ASSESSMENT AND PLAN: 74yoF with history of HTN, HLD, COPD, anemia, hypothyroidism, GERD, seizure disorder no longer on antiepileptics, and Parkinson who presents with abdominal pain, vomiting, and diarrhea found to have likely recurrent SBO/ileus and UTI. SBO/ileus Prior episode in 06/2019 CT abd/pelvis wtih IV contrast showing large and small bowel distention Repeat imaging with PO contrast recommended by surgery, pending - NGT in place - f/u CT abd/pelvis with PO contrast - surgery consult appreciated - NPO - IV Tylenol, Zofran PRN - Maintenance fluids while NPO UTI - continue ceftriaxone - f/u urine culture Chronic conditions: resume oral medications as able Plavix: patient unsure of indication. Please confirm in AM DVT ppx: Lovenox subq
--- NOTE | 2019-10-30 21:08 | HP ---
CHIEF COMPLAINT: 10/10 abdominal pain with nausea, vomiting, and diarrhea PCP: Dr. Jaswinder Maldonado HISTORY OF PRESENT ILLNESS: 74 year old female patient with past medical history that includes Schizophrenia, Hx of Seizures over 10 years ago and no longer taking Seizure Meds, COPD, DM (A1C 6.4% on 09/10/2019), Parkinson's Disease, HTN, HLD, GERD, Anemia, SBO a few months ago, and Asthma, who presents brought in by EMS from [facility] for 10/10 abdominal pain with nausea, 2 episodes non-bloody vomiting, and 3 episodes non-bloody non-watery loose diarrhea. The symptoms began yesterday after eating half a pizza, however, the patient later stated that the symptoms have been ongoing for a month. The patient is A&Ox3. The pain is diffuse in her entire abdomen, but she points to her right lower quadrant as where the pain is worst. The pain is constant 10/10 and non- radiating. It has not changed its location since it originally started. She feels very bloated. She is unable to eat or drink, reporting that she vomits if she tries to drink water. She is still able to pass flatulence, with her last flatulence this morning. She has not had a colonoscopy in over 10 years. No recent medication changes. The patient also has burning on urination and urinary frequency. ER course was notable for: (1) ECG (NSR 100bpm, IL 180ms, QTc 451ms) (2) NG tube placed (3) 1 gram Ofirmev, 30mL Mylanta, 4mg Zofran, 20mg Pepcid (4) 1 gram Rocephin, 1 liter Normal Saline (5) CT A/P Non-Contrast Preliminary Report: Fluid-filled distended large and small bowel with greater distension and small bowel. Transition is identified in the left mid abdomen. No obstructing mass. Moderate fluid in the cul-de- sac. No free air or abscess. Findings may be secondary to ileus recommend follow-up. (6) U/A Positive (2+ Leukocyte Esterase, 1212 WBC, 849 Bacteria, 13 Epithelial Cells, 1+ Bilirubin, Trace Ketones) Recent Travel: Denies PAST MEDICAL HISTORY: Schizophrenia, Hx of Seizures over 10 years ago and no longer taking Seizure Meds, COPD, DM (A1C 6.4% on 09/10/2019), Parkinson's Disease, HTN, HLD, GERD, Anemia, SBO a few months ago, Asthma PAST SURGICAL HISTORY: Denies Social History: Smoking: Denies Alcohol: Denies Drugs: Denies Allergies morphine Allergy (Unknown, Verified 10/30/19 15:50) Penicillins Allergy (Unknown, Verified 10/30/19 15:50) strawberry Allergy (Unknown, Verified 10/30/19 15:49) chocolate Allergy (Unknown, Uncoded 04/04/19 13:50) HOME MEDICATIONS: Home Medications Medication Instructions Recorded Acetaminophen 650 mg PO BID 10/30/19 Alendronate Sodium [Fosamax] 1 tab PO WEEKLY 10/30/19 Aripiprazole 5 mg PO DAILY 10/30/19 Aspirin [Aspirin EC] 81 mg PO DAILY 10/30/19 Clopidogrel Bisulfate [Clopidogrel] 75 mg PO DAILY 10/30/19 Cyclobenzaprine HCl 10 mg PO Q8H 10/30/19 Diclofenac Potassium 50 mg PO DAILY 10/30/19 Famotidine 20 mg PO HS 10/30/19 Ferrous Sulfate [Feosol] 325 mg PO DAILY 10/30/19 Fluticasone Prop 0.05% Nasal 1 spray IN BID 10/30/19 [Flonase -] Levothyroxine [Synthroid -] 25 mcg PO DAILY 10/30/19 Montelukast Na [Singulair -] 10 mg PO DAILY 10/30/19 Polyethylene Glycol 3350 [Miralax 17 gm PO DAILY 10/30/19 (For Daily Use) -] Pravastatin Sodium [Pravachol (Nf)] 80 mg PO DAILY 10/30/19 Risperidone 1 mg PO BID 10/30/19 Sennosides [Senna] 8.6 mg PO BID 10/30/19 Simethicone 80 mg PO Q4H PRN 10/30/19 Solifenacin Succinate [Vesicare -] 10 mg PO DAILY 10/30/19 REVIEW OF SYSTEMS CONSTITUTIONAL: fever Absent: GASTROINTESTINAL: 11/18 abdominal pain diffuse but worse in RLQ, able to pass flatulence (last flatulence in the morning), 3x episodes non-bloody non-watery loose diarrhea, nausea, x2 episodes nonbloody nonbilious vomiting , bloating Absent: GENITOURINARY: dysuria, urinary frequency Absent: ENDOCRINE: feels cold Absent: PHYSICAL EXAMINATION Vital Signs - 24 hr 10/30/19 10/30/19 14:05 17:00 Temperature 98.5 F 98 F Pulse Rate 93 H Pulse Rate [ 88 Apical] Respiratory 20 20 Rate Blood Pressure 133/59 L Blood Pressure 133/55 L [Right Arm] O2 Sat by Pulse 97 96 Oximetry (%) GENERAL: Awake, alert, and fully oriented, in mild acute distress, looking nauseous. HEAD: Normal with no signs of trauma. EYES: Pupils equal, round and reactive to light, extraocular movements intact. No lid lag. EARS, NOSE, THROAT: Ears normal, nares patent, oropharynx clear without exudates. NG tube in nose. NECK: Normal range of motion, supple without lymphadenopathy, JVD, or masses. LUNGS: Breath sounds equal, clear to auscultation bilaterally. No wheezes, and no crackles. No accessory muscle use. HEART: Regular rate and rhythm, normal S1 and S2 without murmur, rub or gallop. ABDOMEN: Soft, diffusely tender, distended, no tympanic sounds auscultated, hypoactive bowel sounds, rebound tenderness, no guarding, no masses. MUSCULOSKELETAL: Normal range of motion at all joints. No bony deformities or tenderness. UPPER EXTREMITIES: 2+ pulses, warm, well-perfused. No cyanosis. No clubbing. No peripheral edema. LOWER EXTREMITIES: 2+ pulses, warm, well-perfused. No calf tenderness. Mild peripheral edema. NEUROLOGICAL: Normal speech. PSYCHIATRIC: Cooperative. Good eye contact. Appropriate mood and affect. SKIN: Warm, dry, no rashes or lesions noted, normal capillary refill. Laboratory Results - last 24 hr 10/30/19 10/30/19 10/30/19 15:10 15:10 15:30 WBC 9.6 RBC 4.55 Hgb 13.9 Hct 42.5 MCV 93.3 MCH 30.6 MCHC 32.8 RDW 14.2 Plt Count 250 MPV 8.6 Absolute Neuts (auto) 7.7 Neutrophils % 79.9 Lymphocytes % 13.8 D Monocytes % 4.9 Eosinophils % 1.0 Basophils % 0.4 Nucleated RBC % 0 Sodium 140 Potassium 4.1 Chloride 110 H Carbon Dioxide 23 Anion Gap 7 L BUN 17.5 Creatinine 1.0 Est GFR (CKD-EPI)AfAm 64.73 Est GFR (CKD-EPI)NonAf 55.85 Random Glucose 120 H Calcium 8.8 Total Bilirubin 0.6 AST 19 ALT 18 Alkaline Phosphatase 101 Creatine Kinase 82 Troponin I < 0.02 Total Protein 6.0 L Albumin 3.3 L Lipase 22 L Urine Color Dk yellow Urine Appearance Cloudy Urine pH 6.0 Ur Specific [place] 1.033 Urine Protein Trace Urine Glucose (UA) Negative Urine Ketones Trace H Urine Blood Negative Urine Nitrite Negative Urine Bilirubin 1+ H Urine Urobilinogen 1.0 Ur Leukocyte Esterase 2+ H Urine WBC (Auto) 1212 Urine RBC (Auto) 37.8 Urine Casts (Auto) 1 U Epithel Cells (Auto) 13 Urine Crystals (Auto) Review A* Urine Bacteria (Auto) 849 ASSESSMENT/PLAN: 74 year old female patient with past medical history that includes Schizophrenia, Hx of Seizures over 10 years ago and no longer taking Seizure Meds, COPD, DM (A1C 6.4% on 09/10/2019), Parkinson's Disease, HTN, HLD, GERD, Anemia, SBO a few months ago, and Asthma, who presents brought in by EMS from [facility] for 10/10 abdominal pain with nausea, 2 episodes non-bloody vomiting, and 3 episodes non-bloody non-watery loose diarrhea. 1. Possible SBO > NG Tube > CT A/P with contrast > IV Fluids > IV Tylenol PRN > IV Zofran PRN 2. UTI > 1 gram IV Ceftriaxone daily > IV Fluids 3. Hypothyroidism > 20mg IV Synthroid (PO to IV Levothyroxine dose conversion per UpToDate: Administer ~75% to 80% of the established oral dose once daily) > TSH ordered 4. DM - Blood Glucose Monitoring - Novolog Sliding Scale 5. Schizophrenia > Can continue PO meds when clinically appropriate and patient is able to tolerate it 6. Parkinson's Disease > Can continue PO meds when clinically appropriate and patient is able to tolerate it 7. COPD > Can continue PO meds when clinically appropriate and patient is able to tolerate it 8. HTN > Can continue PO meds when clinically appropriate and patient is able to tolerate it #FEN: 83ml/hr Normal Saline. Monitoring Electrolytes. NPO DVT PPx: Lovenox SQ Med Rec: Medications in Electronic Medical Record double checked using patient's Correction Transfer Report Family Medical History Family History: Denies Visit type - Medication Review Med list reviewed for High Risk Meds patients 65 and older: Yes - Emergency Visit Emergency Visit: Yes ED Registration Date: 10/30/19 Care time: The patient presented to the Emergency Department on the above date and was hospitalized for further evaluation of their emergent condition. - New Patient This patient is new to me today: Yes Date on this admission: 10/31/19 - Critical Care Critical Care patient: No ATTENDING PHYSICIAN STATEMENT I saw and evaluated the patient. I reviewed the resident's note and discussed the case with the resident. I agree with the resident's findings and plan as documented. SUBJECTIVE: OBJECTIVE: ASSESSMENT AND PLAN:
[2019-10-30] MEDS ORDERED: ACETAMINOPHEN 1000 MG/100 ML VIAL (NON FORMULARY) IVPB PRN ×2 (21:28→21:30)
[2019-10-30] MEDS ORDERED: ONDANSETRON 4 MG/2 ML VIAL IVPUSH PRN (21:29)
[2019-10-30] MEDS: INSULIN SLIDING SCALE (NOVOLOG) 1 VIAL SQ SCH (23:24)
[2019-10-31] MEDS: INSULIN SLIDING SCALE (NOVOLOG) 1 VIAL SQ SCH ×4 (06:55→21:57)
[2019-10-31] MEDS ORDERED: cefTRIAXone SODIUM 1 GM VIAL ONE (10:23)
[2019-10-31] MEDS ORDERED: DEXTROSE 5%-WATER - 50 ML IVPB ONE (10:23)
--- NOTE | 2019-10-31 10:25 | CONSULT ---
- Consultation REQUESTING PROVIDER: Diallo Gabriel CONSULT REQUEST: We have been asked to surgically evaluate this patient for SBO. Hospitalist: Georgette Dang MD PCP: Jaswinder Maldonado MD CC: 10/10 abdominal pain with nausea, vomiting, and diarrhea HPI: Called to tip 74 yo female w/ PMHx as noted below. Presents to [facility] ED via EMS from [place] secondary to abd pain 10/10 associated n/v (nbnb) and multiple episodes of diarrhea (non-bloody). PMHx pertinent for SBO which has been managed non-operatively...most recently a month ago. Initially, pain was 10/10 and non-radiating. NGT placed by ER Attending. While in the ED she had the following: CT A/P non-contrast: Fluid-filled distended large and small bowel with greater distension and small bowel. Transition is identified in the left mid abdomen. No obstructing mass. Moderate fluid in the cul-de-sac. No free air or abscess. Findings may be secondary to ileus. Her U/A Positive (2+ Leukocyte Esterase, 1212 WBC, 849 Bacteria, 13 Epithelial Cells, 1+ Bilirubin, Trace Ketones). Per medical notes, patient hasn't had a colonoscopy in over 10 years. PMHx: Schizophrenia, Bipolar, Incontinence, Sz (< 10 years ago and no longer taking meds), COPD, DM, Parkinson's Disease, HTN, HLD, GERD, Anemia, SBO, Asthma PSHx: None. Home Meds Acetaminophen 650 mg PO BID 10/30/19 Alendronate Sodium [Fosamax] 1 tab PO WEEKLY 10/30/19 Aripiprazole 5 mg PO DAILY 10/30/19 Aspirin [Aspirin EC] 81 mg PO DAILY 10/30/19 Clopidogrel Bisulfate [Clopidogrel] 75 mg PO DAILY 10/30/19 Cyclobenzaprine HCl 10 mg PO Q8H 10/30/19 Diclofenac Potassium 50 mg PO DAILY 10/30/19 Famotidine 20 mg PO HS 10/30/19 Ferrous Sulfate [Feosol] 325 mg PO DAILY 10/30/19 Fluticasone Prop 0.05% Nasal [Flonase -] 1 spray IN BID 10/30/19 Levothyroxine [Synthroid -] 25 mcg PO DAILY 10/30/19 Montelukast Na [Singulair -] 10 mg PO DAILY 10/30/19 Polyethylene Glycol 3350 [Miralax (For Daily Use) -] 17 gm PO DAILY 10/30/19 Pravastatin Sodium [Pravachol (Nf)] 80 mg PO DAILY 10/30/19 Risperidone 1 mg PO BID 10/30/19 Sennosides [Senna] 8.6 mg PO BID 10/30/19 Simethicone 80 mg PO Q4H PRN 10/30/19 Solifenacin Succinate [Vesicare -] 10 mg PO DAILY 10/30/19 Allergies Morphine Allergy (Unknown, Verified 10/30/19 15:50) Penicillins Allergy (Unknown, Verified 10/30/19 15:50) [place] Allergy (Unknown, Verified 10/30/19 15:49) Chocolate Allergy (Unknown, Uncoded 04/04/19 13:50) ROS: 12 Systems reviewed and considered negative except for what's contained in the HPI. PE: GEN: awake, alert, nad HEAD: Normal with no signs of trauma. EYES: PERRL NOSE: NG tube on LWCS (100mL billious) LUNGS: Unlabored respirations on room air. CTA bilat. HEART: RRR ABD: No surgical scars. Obese habitus. Softly distended. Hypoactive bs. Diffusely ttp. No peritoneal signs. MUSCULOSKELETAL: Negative CVAT bilat UE: 2+ pulses, warm, well-perfused. No cyanosis. No clubbing. No peripheral edema. LE: 2+ pulses, warm, well-perfused. No calf tenderness. Mild peripheral edema. PSYCHIATRIC: Cooperative. Good eye contact. Appropriate mood and affect. Last Vital Signs Temp Pulse Resp BP Pulse Ox 97.7 F 63 20 126/62 90 L 10/31/19 00:34 10/31/19 00:34 10/31/19 00:34 10/31/19 00:34 10/31/19 00:34 CBC, BMP 10/30/19 15:10 10/30/19 15:10 Hepatic Panel Total Bilirubin 0.6 mg/dL (0.2-1) 10/30/19 15:10 AST 19 U/L (15-37) 10/30/19 15:10 ALT 18 U/L (13-61) 10/30/19 15:10 Alkaline Phosphatase 101 U/L (45-117) 10/30/19 15:10 Albumin 3.3 g/dl (3.4-5.0) L 10/30/19 15:10 Serology Test 10/30/19 23:10 COVID-19 (LORENZO) Pending Urine Test Results Urine Color Dk yellow 10/30/19 15:30 Urine Appearance Cloudy 10/30/19 15:30 Urine pH 6.0 (5.0-8.0) 10/30/19 15:30 Ur Specific [place] 1.033 (1.010-1.035) 10/30/19 15:30 Urine Protein Trace (NEGATIVE) 10/30/19 15:30 Urine Glucose (UA) Negative (NEGATIVE) 10/30/19 15:30 Urine Ketones Trace (NEGATIVE) H 10/30/19 15:30 Urine Blood Negative (NEGATIVE) 10/30/19 15:30 Urine Nitrite Negative (NEGATIVE) 10/30/19 15:30 Urine Bilirubin 1+ (NEGATIVE) H 10/30/19 15:30 Ur Leukocyte Esterase 2+ (NEGATIVE) H 10/30/19 15:30 A/P: 74 year old female patient with h/o ileus/SBO with recent admission for same problem, admitted to [facility] w/ recurrent problem. Generalized abd pain with associated n/v (nbnb) and diarrhea (nb). ABD/Pelvis CT: fluid-filled distended large and sb (sb > lg). A zone of transition identified in left mid-abd. No obstructing mass seen. Moderate fluid in the cul-de-sac. No free air or abscess. Findings may be secondary to ileus. -NPO -IVF -GI PPx -DVT PPx -Serial ABD exams and AXR (flat & upright) -Avoid narcotics -Ofirmev 1gm Q8H PRN -Antiemetics PRN -UTI -- Ceftriaxone -Monitor/record NGT output q shift -Cont medical management -Cont conservative management -No surgical intervention at this time. Will cont to follow -Covid pending; strict isolation precautions Above plan discussed with Dr. Gabriel and agrees. Problem List - Problems (1) Ileus, unspecified Code(s): K56.7 - ILEUS, UNSPECIFIED (2) Generalized abdominal pain Code(s): R10.84 - GENERALIZED ABDOMINAL PAIN (3) Urinary tract infection Code(s): N39.0 - URINARY TRACT INFECTION, SITE NOT SPECIFIED Qualifiers: Urinary tract infection type: acute cystitis Hematuria presence: without hematuria Qualified Code(s): N30.00 - Acute cystitis without hematuria (4) Bipolar disorder Code(s): F31.9 - BIPOLAR DISORDER, UNSPECIFIED Qualifiers: Active/Remission status: remission status unspecified Qualified Code(s): F31.9 - Bipolar disorder, unspecified (5) Coronary artery disease Code(s): I25.10 - ATHSCL HEART DISEASE OF [place] CORONARY ARTERY W/O ANG PCTRS Qualifiers: Coronary Disease-Associated Artery/Lesion type: unspecified vessel or lesion type (6) GERD (gastroesophageal reflux disease) Code(s): K21.9 - GASTRO-ESOPHAGEAL REFLUX DISEASE WITHOUT ESOPHAGITIS Qualifiers: Visit type - Case Type Case Type: ED Admission - Emergency Emergency Visit: Yes ED Registration Date: 10/30/19 Care time: The patient presented to the Emergency Department on the above date and was hospitalized for further evaluation of their emergent condition. - New patient This patient is new to me today: Yes Date on this admission: 10/31/19
[2019-10-31] MEDS: ENOXAPARIN NA (PORCINE) 40 MG/0.4 ML DISP.SYRIN SQ SCH (10:28)
[2019-10-31] MEDS: CEFTRIAXONE 1 GM in DEXTROSE 5%-WATER - 50 ML IVPB SCH (10:28)
[2019-10-31 10:32] LABS: BASO % 0.1 % (0-2.0); EOS % 1.9 % (0-4.5); HEMATOCRIT 35.7 % (32.4-45.2); HEMOGLOBIN 11.9 GM/dL (10.7-15.3); LYMPH % 19.8 % (8-40); MCH 30.7 pg (25.7-33.7); MCHC 33.4 g/dl (32.0-36.0); MEAN CELL VOLUME 91.9 fl (80-96); MEAN PLT VOLUME 8.6 fl (7.5-11.1); MONO % 8.5 % (3.8-10.2); NEUT % 69.7 % (42.8-82.8); PLATELET COUNT 225 K/MM3 (134-434); RBC 3.89 M/mm3 (3.60-5.2); RDW 14.4 % (11.6-15.6); WHITE BLOOD COUNT 6.3 K/mm3 (4.0-10.0)
--- NOTE | 2019-10-31 11:05 | EKG ---
Test Reason : Blood Pressure : / mmHG Vent. Rate : 100 BPM Atrial Rate : 100 BPM P-R Int : 180 ms QRS Dur : 080 ms QT Int : 350 ms P-R-T Axes : 000 -10 148 degrees QTc Int : 451 ms NORMAL SINUS RHYTHM ANTEROSEPTAL INFARCT (CITED ON OR BEFORE 23-APR-2017) T WAVE ABNORMALITY, CONSIDER LATERAL ISCHEMIA ABNORMAL ECG WHEN COMPARED WITH ECG OF 10-SEP-2019 11:10, POOR R WAVE PROGRESSION SEEN VENT. RATE HAS INCREASED Confirmed by YOUNG MCMAHAN MD ([id number]) on 10/31/2019 11:05:05 AM Referred By: Confirmed By:YOUNG MCMAHAN MD
[2019-10-31 11:12] LABS: BLOOD UREA NITROGEN 19.8 mg/dL (7-18); CALCIUM 7.2 mg/dL (8.5-10.1); CREATININE 0.8 mg/dL (0.55-1.3); MAGNESIUM 1.6 mg/dL (1.8-2.4); PHOSPHOROUS 2.5 mg/dL (2.5-4.9); POTASSIUM 3.6 mmol/L (3.5-5.1)
[2019-10-31] MEDS: LEVOTHYROXINE SODIUM 100 MCG VIAL IVPUSH SCH (11:44)
--- NOTE | 2019-10-31 13:28 | PN ---
Physical Exam: SUBJECTIVE: Patient seen and examined at bedside. No acute events reported overnight. OBJECTIVE: Vital Signs Period Temp Pulse Resp BP Sys/Lin Pulse Ox Last 24 Hr 97.7 F-98.6 F 63-100 18-20 124-133/55-62 90-98 GENERAL: AAOx3, in no acute distress HEENT: NCAT, PERRLA, EOMI, sclera anicteric, conjunctiva clear, oropharynx clear w/o exudates. MMM. NECK: Normal ROM, supple, no lymphadenopathy, JVD, or masses LUNGS: CTABL no wheezes/ rhonchi/ rales. No distress, speaks in full sentences. No increased work of breathing. HEART: RRR, normal S1 S2, no M/R/G, peripheral pulses 2+ and equal b/l ABDOMEN: Soft, diffuse tenderness with most pain in RLQ, + BS. No guarding or rebound. No hepatomegaly or splenomegaly. MSK: ROM WNL EXTREMITIES: Normal inspection. No peripheral edema. No clubbing or cyanosis. NEUROLOGICAL: CN II-XII intact. Normal speech, normal gait, no focal sensorimotor deficits. SKIN: Warm, Dry, normal turgor, no rashes or lesions noted Laboratory Results - last 24 hr CBC, BMP 10/31/19 09:35 10/31/19 09:35 10/30/19 10/30/19 10/30/19 15:10 15:10 15:30 WBC 9.6 RBC 4.55 Hgb 13.9 Hct 42.5 MCV 93.3 MCH 30.6 MCHC 32.8 RDW 14.2 Plt Count 250 MPV 8.6 Absolute Neuts (auto) 7.7 Neutrophils % 79.9 Lymphocytes % 13.8 D Monocytes % 4.9 Eosinophils % 1.0 Basophils % 0.4 Nucleated RBC % 0 Sodium 140 Potassium 4.1 Chloride 110 H Carbon Dioxide 23 Anion Gap 7 L BUN 17.5 Creatinine 1.0 Est GFR (CKD-EPI)AfAm 64.73 Est GFR (CKD-EPI)NonAf 55.85 POC Glucometer Random Glucose 120 H Calcium 8.8 Phosphorus Magnesium Total Bilirubin 0.6 AST 19 ALT 18 Alkaline Phosphatase 101 Creatine Kinase 82 Troponin I < 0.02 Total Protein 6.0 L Albumin 3.3 L Lipase 22 L TSH Urine Color Dk yellow Urine Appearance Cloudy Urine pH 6.0 Ur Specific [place] 1.033 Urine Protein Trace Urine Glucose (UA) Negative Urine Ketones Trace H Urine Blood Negative Urine Nitrite Negative Urine Bilirubin 1+ H Urine Urobilinogen 1.0 Ur Leukocyte Esterase 2+ H Urine WBC (Auto) 1212 Urine RBC (Auto) 37.8 Urine Casts (Auto) 1 U Epithel Cells (Auto) 13 Urine Crystals (Auto) Review A* Urine Bacteria (Auto) 849 10/30/19 10/31/19 10/31/19 23:10 06:54 09:35 WBC 6.3 RBC 3.89 Hgb 11.9 Hct 35.7 D MCV 91.9 MCH 30.7 MCHC 33.4 RDW 14.4 Plt Count 225 MPV 8.6 Absolute Neuts (auto) 4.4 Neutrophils % 69.7 Lymphocytes % 19.8 D Monocytes % 8.5 Eosinophils % 1.9 D Basophils % 0.1 Nucleated RBC % 0 Sodium Potassium Chloride Carbon Dioxide Anion Gap BUN Creatinine Est GFR (CKD-EPI)AfAm Est GFR (CKD-EPI)NonAf POC Glucometer 136 104 Random Glucose Calcium Phosphorus Magnesium Total Bilirubin AST ALT Alkaline Phosphatase Creatine Kinase Troponin I Total Protein Albumin Lipase TSH Urine Color Urine Appearance Urine pH Ur Specific [place] Urine Protein Urine Glucose (UA) Urine Ketones Urine Blood Urine Nitrite Urine Bilirubin Urine Urobilinogen Ur Leukocyte Esterase Urine WBC (Auto) Urine RBC (Auto) Urine Casts (Auto) U Epithel Cells (Auto) Urine Crystals (Auto) Urine Bacteria (Auto) 10/31/19 10/31/19 09:35 12:24 WBC RBC Hgb Hct MCV MCH MCHC RDW Plt Count MPV Absolute Neuts (auto) Neutrophils % Lymphocytes % Monocytes % Eosinophils % Basophils % Nucleated RBC % Sodium 143 Potassium 3.6 Chloride 115 H Carbon Dioxide 24 Anion Gap 4 L BUN 19.8 H Creatinine 0.8 Est GFR (CKD-EPI)AfAm 84.77 Est GFR (CKD-EPI)NonAf 73.14 POC Glucometer 101 Random Glucose 104 Calcium 7.2 L Phosphorus 2.5 Magnesium 1.6 L Total Bilirubin AST ALT Alkaline Phosphatase Creatine Kinase Troponin I Total Protein Albumin Lipase TSH 1.02 Urine Color Urine Appearance Urine pH Ur Specific [place] Urine Protein Urine Glucose (UA) Urine Ketones Urine Blood Urine Nitrite Urine Bilirubin Urine Urobilinogen Ur Leukocyte Esterase Urine WBC (Auto) Urine RBC (Auto) Urine Casts (Auto) U Epithel Cells (Auto) Urine Crystals (Auto) Urine Bacteria (Auto) Active Medications Generic Name Dose Route Start Last Admin Trade Name Freq PRN Reason Stop Dose Admin Acetaminophen 1,000 mg 10/30/19 21:30 Ofirmev Injection - IVPB 10/31/19 21:28 Q8H PRN PAIN LEVEL 6-10 Enoxaparin Sodium 40 mg 10/31/19 10:00 10/31/19 10:28 Lovenox - SQ 40 mg DAILY NITESH Administration Sodium Chloride 1,000 mls @ 83 mls/hr 10/30/19 20:45 10/30/19 21:31 Normal Saline - IV 83 mls/hr ASDIR NITESH Administration Ceftriaxone Sodium 1 gm/ 50 mls @ 100 mls/hr 10/31/19 10:00 10/31/19 10:28 Dextrose IVPB 100 mls/hr DAILY NITESH Administration Protocol Insulin Aspart 1 vial 10/30/19 22:00 10/31/19 12:26 Novolog Vial Sliding Scale - SQ Not Given ACHS NITESH Protocol Levothyroxine Sodium 20 mcg 10/31/19 10:00 10/31/19 11:44 Synthroid Injection - IVPUSH 20 mcg DAILY NITESH Administration Ondansetron HCl 4 mg 10/30/19 21:29 Zofran Injection IVPUSH Q8H PRN NAUSEA ASSESSMENT/PLAN: 74 y/o lady patient with PMX of Schizophrenia, Hx of Seizures (last seizure over 10 years ago), COPD, DM (A1C 6.4% on 09/28), Parkinson's Disease, HTN, HLD, GERD, Anemia, SBO a few months ago, and Asthma, who presents brought in by EMS from [facility] for 10/10 abdominal pain with nausea, and non bloody vomiting. #Small Bowel Obstruction-recurrent -CT A/P with contrast showing proximal bowel distention, improved with NGT placement -NPO -c/w IV hydration - IV Acetaminophen Q8H PRN for pain -Zofran 4 mg Q8H PRN for nausea -IV Flgyl given -plavix d/c in case pt goes to surgery -surgery consulted: continue to medically manage for now -monitor for flatus and bowel movements #UTI -ca-oxalate crystals noted -abx: Rocephin #Hypothyroidism -restarted Synthroid at home dose #HTN -monitor BP -c/w norvasc #DM -ISS w BGM #GERD -Pepcid HS #COPD -Duoneb Q4 PRN #Schizophrenia -hold meds until clinically appropriate #Parkinson's Disease -hold meds until clinically appropriate #FEN -1/2 NS w 20 meq KCl @ 100 mls/hr -monitor lytes; replete PRN -NPO #Ppx -Lovenox SQ dispo- continue to monitor in m/s Visit type - Emergency Visit Emergency Visit: No - New Patient This patient is new to me today: Yes Date on this admission: 10/31/19 - Critical Care Critical Care patient: No - Discharge Referral Referred to [facility] No - Medication Review Med list reviewed for High Risk Meds patients 65 and older: Yes ATTENDING PHYSICIAN STATEMENT I saw and evaluated the patient. I reviewed the resident's note and discussed the case with the resident. I agree with the resident's findings and plan as documented. SUBJECTIVE: OBJECTIVE: ASSESSMENT AND PLAN:
[2019-10-31] MEDS ORDERED: ALBUTEROL SO4 2.5/IPRATROPIUM 0.5 INH SOL 3 ML VIAL.NEB. NEB PRN (13:46)
[2019-10-31] MEDS ORDERED: CYCLOBENZAPRINE HCL 10 MG TABLET (FP) PO PRN (13:46)
[2019-10-31] MEDS ORDERED: CLOPIDOGREL BISULFATE 75 MG TABLET (FP) PO SCH (14:00)
[2019-10-31] MEDS ORDERED: POLYETHYLENE GLYCOL 3350 119 GM BTL PO SCH (14:00)
--- NOTE | 2019-10-31 14:13 | PN ---
Progress Note (short form) - Note Progress Note: surgery 74 female on psych meds, on plavix, has suboptimal ct without oral contrast showing psbo vs ileus. I requested a repeat ct with oral contrast via ngt but I dont see any contrast on that second study. ngt minimal output. abd-soft, nt, moderate distension. plan- suspect ileus> mechanical sbo. An oral contrast CT (using ngt) would be helpful. Should probably hold Plavix if surgery is a possibility. Pt is non toxic without evidence of bowel compromise.
[2019-10-31] MEDS ORDERED: DICLOFENAC SODIUM 25 MG TABLET.DR PO ONE (15:00)
--- NOTE | 2019-10-31 15:06 | CONS ---
DATE OF CONSULTATION: 10/31/2019 REASON FOR CONSULTATION: Mechanical small-bowel obstruction. This is an emergency room consultation requested by the emergency room physician. BRIEF HISTORY: This is a 74-year-old female who has been admitted recently to [facility] in the past for a possible mechanical bowel obstruction which quickly resolved with medical management. She has had no previous surgery. She is a psychiatric patient on multiple psychiatric medications. She presented to the emergency room complaining of abdominal pain, nausea and vomiting. She had a CAT scan done without oral contrast that suggested an ileus versus partial small-bowel obstruction. At my request after a nasogastric tube was placed I suggested a second CAT scan be done but with oral contrast to better evaluate if this was indeed a mechanical obstruction. That CAT scan was done, but on my evaluation I am unable to see if oral contrast was actually given. The study did show improvement and that it was more likely an ileus than a mechanical obstruction. The patient was admitted to the hospital. She had a nasogastric tube which has put out only 100 of stomach content. She also is on Plavix and has remained on Plavix since admission despite the request for surgical evaluation. PAST MEDICAL HISTORY: Significant for schizophrenia, bipolar, incontinence, seizure disorder, COPD, diabetes, Parkinson's, hypertension, hyperlipidemia, gastroesophageal reflux disease, anemia, bowel obstructions and asthma. She has never had surgery. HOME MEDICATIONS: Include Tylenol, Fosamax, aspirin, aripiprazole, Plavix, cyclobenzaprine, diclofenac, Pepcid, iron, fluticasone/Flonase, Synthroid, Singulair, MiraLAX, Pravachol, risperidone, senna, simethicone and VESIcare. ALLERGIES: She has allergies to MORPHINE, PENICILLIN, STRAWBERRY and CHOCOLATE. REVIEW OF SYSTEMS: General: Denies fatigue. Cardiac: Denies chest pain. Respiratory: Denies shortness of breath. Gastrointestinal: Currently says she has no pain. Genitourinary: Denies dysuria. Musculoskeletal: Denies joint pain. Psychiatric: Denies hearing voices. PHYSICAL EXAMINATION: General: This is an obese 74-year-old female in no distress. HEENT: Head is normocephalic. Sclerae are anicteric. Neck: Supple. Chest: Clear. Abdomen: Soft. It is obese. There is perhaps a small ventral hernia at the central portion of her abdomen. There is minimal tenderness. There is no rebound. There is no guarding. Extremities: Edema. LABORATORY: On review of her laboratory white blood cell count is 6.3. Her chemistries are unremarkable with exception of a low magnesium and an albumin that is 3.3. Her COVID virus is pending test. Her imaging is as stated in the HPI. ASSESSMENT: This is a 74-year-old female on multiple psychiatric medications which can cause bowel dysmotility who has never had surgery, who has 2 suboptimal CAT scans suggesting the possibility of a partial bowel obstruction. She has had minimal NG tube output. Clinically I think this is more likely an ileus than a mechanical partial obstruction. A CAT scan with oral contrast given through the nasogastric tube would be helpful in delineating the 2 different etiologies. Unfortunately that would be her third CAT scan. Also, since a surgical consultation is being requested that means that there is the possibility of the patient requiring surgical exploration. In that setting it would be best to hold Plavix as that can lead to excessive blood loss and if surgery were to happen. At this point she has no evidence of bowel compromise. Recommend continue the nasogastric tube. Consider either repeating CAT scan with oral contrast and allowing the contrast 3 hours to proceed, or possibly just give the contrast through the nasogastric tube and follow with x-rays daily. Keep n.p.o. and Plavix will need at least 5 days to wear off before surgery could be considered. Would also correct the magnesium as it too could contribute toward ileus. DO MILE RODRIGUEZ/[id number]
[2019-10-31] MEDS ORDERED: MAGNESIUM SULF 50% (8.12 MEQ/2 ML-1 GM VIAL) IVPB ONE (15:15)
--- NOTE | 2019-10-31 15:28 | PN ---
Teaching Attending Note Name of Resident: Morris Culp ATTENDING PHYSICIAN STATEMENT I saw and evaluated the patient. I reviewed the resident's note and discussed the case with the resident. I agree with the resident's findings and plan as documented. SUBJECTIVE: pt seen and examined at bedside OBJECTIVE: Last Vital Signs Temp Pulse Resp BP Pulse Ox 98.6 F 100 H 20 124/56 L 90 L 10/31/19 08:22 10/31/19 08:22 10/31/19 12:23 10/31/19 08:22 10/31/19 12:23 GENERAL: Awake, alert, and fully oriented, in no acute distress. HEAD: Normal with no signs of trauma. EYES: Pupils equal, round and reactive to light, sclera anicteric, conjunctiva clear. LUNGS: Breath sounds equal, clear to auscultation bilaterally. No wheezes, and no crackles. No accessory muscle use. HEART: Regular rate and rhythm, normal S1 and S2 ABDOMEN: Soft, not distended, RLQ tenderness without rebound tenderness, BS++ LOWER EXTREMITIES: 2+ pulses, warm, well-perfused. No calf tenderness. No peripheral edema. NEUROLOGICAL: Cranial nerves II-XII intact. Normal speech. CBCD WBC 6.3 K/mm3 (4.0-10.0) 10/31/19 09:35 RBC 3.89 M/mm3 (3.60-5.2) 10/31/19 09:35 Hgb 11.9 GM/dL (10.7-15.3) 10/31/19 09:35 Hct 35.7 % (32.4-45.2) D 10/31/19 09:35 MCV 91.9 fl (80-96) 10/31/19 09:35 MCHC 33.4 g/dl (32.0-36.0) 10/31/19 09:35 RDW 14.4 % (11.6-15.6) 10/31/19 09:35 Plt Count 225 K/MM3 (134-434) 10/31/19 09:35 MPV 8.6 fl (7.5-11.1) 10/31/19 09:35 CMP Sodium 143 mmol/L (136-145) 10/31/19 09:35 Potassium 3.6 mmol/L (3.5-5.1) 10/31/19 09:35 Chloride 115 mmol/L (98-107) H 10/31/19 09:35 Carbon Dioxide 24 mmol/L (21-32) 10/31/19 09:35 Anion Gap 4 MMOL/L (8-16) L 10/31/19 09:35 BUN 19.8 mg/dL (7-18) H 10/31/19 09:35 Creatinine 0.8 mg/dL (0.55-1.3) 10/31/19 09:35 Random Glucose 104 mg/dL (74-106) 10/31/19 09:35 Calcium 7.2 mg/dL (8.5-10.1) L 10/31/19 09:35 Total Bilirubin 0.6 mg/dL (0.2-1) 10/30/19 15:10 AST 19 U/L (15-37) 10/30/19 15:10 ALT 18 U/L (13-61) 10/30/19 15:10 Alkaline Phosphatase 101 U/L (45-117) 10/30/19 15:10 Total Protein 6.0 g/dl (6.4-8.2) L 10/30/19 15:10 Albumin 3.3 g/dl (3.4-5.0) L 10/30/19 15:10 CARDIAC ENZYMES Creatine Kinase 82 U/L (26-192) 10/30/19 15:10 Troponin I < 0.02 ng/ml (0.00-0.05) 10/30/19 15:10 Active Medications ASSESSMENT AND PLAN: 74 yo lady patient with Mhx of Schizophrenia, Hx of Seizures over 10 years ago (not on Meds, COPD, DM (A1C 6.4% on 09/10/2019), Parkinson's Disease, HTN, HLD, GERD, Anemia, SBO a few months ago, and Asthma, who presents brought in by EMS from [facility] for 10/10 abdominal pain with nausea, and non bloody vomiting. # recurrent SBO Cause unknown at this time. NO hx of abdominal surgery CT A/P with contrast showing proximal bowel distention, improved with NGT placement c/w IV hydration, pain management, PRN zofran IV Abx (one time flagyl given, pt is allergic to penicillins) replete electrolytes PRN keep NPO d/c plavix as pt might need surgery still no flatus or BM surgical consult appreciated UTI (on Abx, Ca-oxalate crystals noted) Hypothyroidism DM Schizophrenia (holding off meds now) Parkinson's Disease (holding off meds now) COPD HTN DVT PPx: Lovenox SQ
[2019-10-31] MEDS: SODIUM CHLORIDE 0.45%/POT 20 MEQ/1,000 ML INFUS.BAG IV SCH (16:05)
[2019-10-31] MEDS: amLODIPine BESYLATE 5 MG TABLET (FP) PO SCH (16:08)
[2019-10-31] MEDS ORDERED: PT OWN MED DRAWER 7, Y5N ONE (17:32)
[2019-10-31] MEDS: FAMOTIDINE 20 MG TABLET PO SCH (21:54)
[2019-10-31] MEDS: MONTELUKAST NA 10 MG TABLET PO SCH (21:54)
[2019-11-01] MEDS: SODIUM CHLORIDE 0.45%/POT 20 MEQ/1,000 ML INFUS.BAG IV SCH ×3 (00:57→17:01)
[2019-11-01] MEDS: INSULIN SLIDING SCALE (NOVOLOG) 1 VIAL SQ SCH ×4 (06:16→21:13)
[2019-11-01 07:22] LABS: BASO % 0.3 % (0-2.0); EOS % 2.4 % (0-4.5); HEMATOCRIT 34.8 % (32.4-45.2); HEMOGLOBIN 11.7 GM/dL (10.7-15.3); LYMPH % 23.8 % (8-40); MCH 31.4 pg (25.7-33.7); MCHC 33.7 g/dl (32.0-36.0); MEAN CELL VOLUME 93.2 fl (80-96); MEAN PLT VOLUME 8.4 fl (7.5-11.1); MONO % 8.6 % (3.8-10.2); NEUT % 64.9 % (42.8-82.8); PLATELET COUNT 194 K/MM3 (134-434); RBC 3.74 M/mm3 (3.60-5.2); RDW 14.4 % (11.6-15.6); WHITE BLOOD COUNT 6.8 K/mm3 (4.0-10.0)
[2019-11-01 07:52] LABS: ALBUMIN 2.6 g/dl (3.4-5.0); BILIRUBIN,DIRECT 0.1 mg/dL (0.0-0.2); BILIRUBIN,TOTAL 0.4 mg/dL (0.2-1); BLOOD UREA NITROGEN 12.1 mg/dL (7-18); CALCIUM 7.2 mg/dL (8.5-10.1); CREATININE 0.6 mg/dL (0.55-1.3); POTASSIUM 3.9 mmol/L (3.5-5.1); TOT PROT 4.8 g/dl (6.4-8.2)
[2019-11-01] MEDS ORDERED: DEXTROSE 5%-WATER - 50 ML IVPB ONE (09:35)
[2019-11-01] MEDS ORDERED: cefTRIAXone SODIUM 1 GM VIAL ONE (09:35)
[2019-11-01] MEDS: CEFTRIAXONE 1 GM in DEXTROSE 5%-WATER - 50 ML IVPB SCH (09:43)
[2019-11-01] MEDS: risperiDONE 1 MG TABLET PO SCH (09:43)
[2019-11-01] MEDS: ENOXAPARIN NA (PORCINE) 40 MG/0.4 ML DISP.SYRIN SQ SCH (09:43)
[2019-11-01] MEDS: amLODIPine BESYLATE 5 MG TABLET (FP) PO SCH (09:43)
[2019-11-01] MEDS: LEVOTHYROXINE SODIUM 100 MCG VIAL IVPUSH SCH (09:44)
--- NOTE | 2019-11-01 10:20 | PN ---
Progress Note (short form) - Note Progress Note: Surgery Patient being followed for PSBO vs ileus. Patient seen and examined at bedside c/o chills. She states that she is nauseous and having gas pain but she is passing flatus. She denies any fever, vomiting, CP, or SOB. Vital Signs Temp 98.5 F 11/01/19 05:37 Pulse 80 11/01/19 05:37 Resp 18 11/01/19 05:37 BP 146/69 11/01/19 05:37 Pulse Ox 94 L 11/01/19 05:37 Intake & Output 10/31/19 10/31/19 11/01/19 11:59 23:59 11:59 Intake Total 814 1000 600 Output Total 100 Balance 714 1000 600 Weight 170 lb Intake: IV 664 800 600 1/2NS+20MEQ KCL 20 meq In 800 600 1,000 ml @ 100 mls/hr IV ASDIR NITESH Rx#: [id number] Normal Saline - 1,000 ml 664 @ 83 mls/hr IV ASDIR NITESH Rx#:[id number] IVPB 150 200 Output: Gastric Drainage 100 Other: Voiding Method Incontinent Incontinent # Unmeasured Voids Void 0 1 Bowel Movement Yes: small loose stool No Weight Measurement Method Built in Bedscale CBC, BMP 11/01/19 06:12 11/01/19 06:12 PE: A&Ox3, NAD Unlabored resp on RA ABD: Obese, + distended with focal TTP in RLQ, no masses palpated, no lesions or scars B/L LE compartments soft, supple and non-tender. Problem List - Problems (1) SBO (small bowel obstruction) Assessment/Plan: Patient scheduled for Rpt scan with contrast down the NGT today. -F/U CT with contrast -maintain NGT -NPO -Encourage IS -Surgery to follow. Code(s): K56.609 - UNSP INTESTNL OBST, UNSP TO PARTIAL VERSUS COMPLETE OBST
--- NOTE | 2019-11-01 13:22 | PN ---
Physical Exam: SUBJECTIVE: Patient seen and examined at bedside. No acute events reported overnight. Endorses passing flatus. OBJECTIVE: Vital Signs Period Temp Pulse Resp BP Sys/Lin Pulse Ox Last 24 Hr 98.3 F-99.3 F 78-94 18-20 111-146/47-87 91-96 GENERAL: AAOx3, in no acute distress HEENT: NCAT, PERRLA, EOMI, sclera anicteric, conjunctiva clear, oropharynx clear w/o exudates. MMM. NECK: Normal ROM, supple, no lymphadenopathy, JVD, or masses LUNGS: CTABL no wheezes/ rhonchi/ rales. No distress, speaks in full sentences. No increased work of breathing. HEART: RRR, normal S1 S2, no R/G, peripheral pulses 2+ and equal b/l, + systolic murmur ABDOMEN: Soft, diffuse tenderness with most pain in RLQ, + BS. No guarding or rebound. No hepatomegaly or splenomegaly. MSK: ROM WNL EXTREMITIES: Normal inspection. No peripheral edema. No clubbing or cyanosis. NEUROLOGICAL: CN II-XII intact. Normal speech, normal gait, no focal sensorimotor deficits. SKIN: Warm, Dry, normal turgor, no rashes or lesions noted Laboratory Results - last 24 hr CBC, BMP 11/01/19 06:12 11/01/19 06:12 10/30/19 10/31/19 10/31/19 23:10 17:09 21:56 WBC RBC Hgb Hct MCV MCH MCHC RDW Plt Count MPV Absolute Neuts (auto) Neutrophils % Lymphocytes % Monocytes % Eosinophils % Basophils % Nucleated RBC % Sodium Potassium Chloride Carbon Dioxide Anion Gap BUN Creatinine Est GFR (CKD-EPI)AfAm Est GFR (CKD-EPI)NonAf POC Glucometer 95 95 Random Glucose Lactic Acid Calcium Total Bilirubin Direct Bilirubin AST ALT Alkaline Phosphatase Total Protein Albumin Total Amylase Lipase COVID-19 (LORENZO) Not detected 11/01/19 11/01/19 11/01/19 05:07 06:00 06:12 WBC 6.8 RBC 3.74 Hgb 11.7 Hct 34.8 MCV 93.2 MCH 31.4 MCHC 33.7 RDW 14.4 Plt Count 194 MPV 8.4 Absolute Neuts (auto) 4.4 Neutrophils % 64.9 Lymphocytes % 23.8 D Monocytes % 8.6 Eosinophils % 2.4 Basophils % 0.3 Nucleated RBC % 0 Sodium Potassium Chloride Carbon Dioxide Anion Gap BUN Creatinine Est GFR (CKD-EPI)AfAm Est GFR (CKD-EPI)NonAf POC Glucometer 91 Random Glucose Lactic Acid 1.0 Calcium Total Bilirubin Direct Bilirubin AST ALT Alkaline Phosphatase Total Protein Albumin Total Amylase Lipase COVID-19 (LORENZO) 11/01/19 11/01/19 06:12 11:35 WBC RBC Hgb Hct MCV MCH MCHC RDW Plt Count MPV Absolute Neuts (auto) Neutrophils % Lymphocytes % Monocytes % Eosinophils % Basophils % Nucleated RBC % Sodium 141 Potassium 3.9 Chloride 112 H Carbon Dioxide 24 Anion Gap 6 L BUN 12.1 Creatinine 0.6 Est GFR (CKD-EPI)AfAm 104.80 Est GFR (CKD-EPI)NonAf 90.42 POC Glucometer 84 Random Glucose 88 Lactic Acid Calcium 7.2 L Total Bilirubin 0.4 Direct Bilirubin 0.1 AST 7 L ALT 12 L Alkaline Phosphatase 77 Total Protein 4.8 L Albumin 2.6 L Total Amylase 9 L Lipase 20 L COVID-19 (LORENZO) Active Medications Generic Name Dose Route Start Last Admin Trade Name Freq PRN Reason Stop Dose Admin Albuterol/Ipratropium 1 amp 10/31/19 13:46 Duoneb - NEB Q4H PRN SHORTNESS OF BREATH Amlodipine Besylate 5 mg 10/31/19 14:00 11/01/19 09:43 Norvasc - PO 5 mg DAILY NITESH Administration Enoxaparin Sodium 40 mg 10/31/19 10:00 11/01/19 09:43 Lovenox - SQ 40 mg DAILY NITESH Administration Famotidine 20 mg 10/31/19 22:00 10/31/19 21:54 Pepcid - PO Not Given HS NITESH Ceftriaxone Sodium 1 gm/ 50 mls @ 100 mls/hr 10/31/19 10:00 11/01/19 09:43 Dextrose IVPB 100 mls/hr DAILY NITESH Administration Protocol Potassium Chloride/Sodium Chloride 20 meq in 1,000 mls @ 100 mls/hr 10/31/19 15:30 11/01/19 00:57 1/2ns+20meq Kcl IV 100 mls/hr ASDIR NITESH Administration Insulin Aspart 1 vial 10/30/19 22:00 11/01/19 11:52 Novolog Vial Sliding Scale - SQ Not Given ACHS [facility] Protocol Levothyroxine Sodium 20 mcg 10/31/19 10:00 11/01/19 09:44 Synthroid Injection - IVPUSH 20 mcg DAILY NITESH Administration Montelukast Sodium 10 mg 10/31/19 22:00 10/31/19 21:54 Singulair - PO Not Given HS NITESH Ondansetron HCl 4 mg 10/30/19 21:29 Zofran Injection IVPUSH Q8H PRN NAUSEA Risperidone 1 mg 11/01/19 10:00 11/01/19 09:43 Risperdal - PO 1 mg DAILY NITESH Administration ASSESSMENT/PLAN: 74 y/o lady patient with PMX of Schizophrenia, Hx of Seizures (last seizure over 10 years ago), COPD, DM (A1C 6.4% on 09/28), Parkinson's Disease, HTN, HLD, GERD, Anemia, SBO a few months ago, and Asthma, who presents brought in by EMS from [facility] for 10/10 abdominal pain with nausea, and non bloody vomiting. #Small Bowel Obstruction-recurrent -CT A/P with contrast showing proximal bowel distention, improved with NGT placement -repeat CT A/P w/ contrast ordered today- f/u results -NPO -c/w IV hydration - IV Acetaminophen Q8H PRN for pain -Zofran 4 mg Q8H PRN for nausea -plavix d/c in case pt goes to surgery -surgery consulted: continue to medically manage for now -monitor for flatus and bowel movements #UTI -ca-oxalate crystals noted -UA was contaminated so repeat UA was ordered -abx: Rocephin #Hypothyroidism -restarted Synthroid at home dose #HTN -monitor BP -c/w norvasc #DM -ISS w BGM #GERD -Pepcid HS #COPD -Duoneb Q4 PRN #Schizophrenia -hold meds until clinically appropriate #Parkinson's Disease -hold meds until clinically appropriate #FEN -1/2 NS w 20 meq KCl @ 100 mls/hr -monitor lytes; replete PRN -NPO #Ppx -Lovenox SQ dispo- continue to monitor in m/s Visit type - Emergency Visit Emergency Visit: No - New Patient This patient is new to me today: No - Critical Care Critical Care patient: No - Discharge Referral Referred to [facility] Med P.C.: No - Medication Review Med list reviewed for High Risk Meds patients 65 and older: Yes ATTENDING PHYSICIAN STATEMENT I saw and evaluated the patient. I reviewed the resident's note and discussed the case with the resident. I agree with the resident's findings and plan as documented. SUBJECTIVE: OBJECTIVE: ASSESSMENT AND PLAN:
[2019-11-01] MEDS ORDERED: ACETAMINOPHEN 1000 MG/100 ML VIAL (NON FORMULARY) IVPB PRN (15:48)
--- NOTE | 2019-11-01 19:00 | PN ---
Teaching Attending Note Name of Resident: Morris Culp ATTENDING PHYSICIAN STATEMENT I saw and evaluated the patient. I reviewed the resident's note and discussed the case with the resident. I agree with the resident's findings and plan as documented. SUBJECTIVE: Improving abdominal pain. Small BM overnight. OBJECTIVE: Afebrile, Hemodynamically Stable. Last Vital Signs Temp Pulse Resp BP Pulse Ox 98.6 F 89 18 144/59 L 96 11/01/19 14:33 11/01/19 14:33 11/01/19 14:33 11/01/19 14:33 11/01/19 11:28 HEENT - Atraumatic. NGT in situ Heart - S1, S2, RRR Lungs - clear to auscultation Abdomen - Soft, mild generalized tenderness. Bowel Sounds normal. Extremities - trace edema, no calf tenderness. Laboratory Results - last 24 hr 10/30/19 10/31/19 11/01/19 23:10 21:56 05:07 WBC RBC Hgb Hct MCV MCH MCHC RDW Plt Count MPV Absolute Neuts (auto) Neutrophils % Lymphocytes % Monocytes % Eosinophils % Basophils % Nucleated RBC % Sodium Potassium Chloride Carbon Dioxide Anion Gap BUN Creatinine Est GFR (CKD-EPI)AfAm Est GFR (CKD-EPI)NonAf POC Glucometer 95 91 Random Glucose Lactic Acid Calcium Total Bilirubin Direct Bilirubin AST ALT Alkaline Phosphatase Total Protein Albumin Total Amylase Lipase COVID-19 (LORENZO) Not detected 11/01/19 11/01/19 11/01/19 06:00 06:12 06:12 WBC 6.8 RBC 3.74 Hgb 11.7 Hct 34.8 MCV 93.2 MCH 31.4 MCHC 33.7 RDW 14.4 Plt Count 194 MPV 8.4 Absolute Neuts (auto) 4.4 Neutrophils % 64.9 Lymphocytes % 23.8 D Monocytes % 8.6 Eosinophils % 2.4 Basophils % 0.3 Nucleated RBC % 0 Sodium 141 Potassium 3.9 Chloride 112 H Carbon Dioxide 24 Anion Gap 6 L BUN 12.1 Creatinine 0.6 Est GFR (CKD-EPI)AfAm 104.80 Est GFR (CKD-EPI)NonAf 90.42 POC Glucometer Random Glucose 88 Lactic Acid 1.0 Calcium 7.2 L Total Bilirubin 0.4 Direct Bilirubin 0.1 AST 7 L ALT 12 L Alkaline Phosphatase 77 Total Protein 4.8 L Albumin 2.6 L Total Amylase 9 L Lipase 20 L COVID-19 (LORENZO) 11/01/19 11/01/19 11:35 17:00 WBC RBC Hgb Hct MCV MCH MCHC RDW Plt Count MPV Absolute Neuts (auto) Neutrophils % Lymphocytes % Monocytes % Eosinophils % Basophils % Nucleated RBC % Sodium Potassium Chloride Carbon Dioxide Anion Gap BUN Creatinine Est GFR (CKD-EPI)AfAm Est GFR (CKD-EPI)NonAf POC Glucometer 84 74 Random Glucose Lactic Acid Calcium Total Bilirubin Direct Bilirubin AST ALT Alkaline Phosphatase Total Protein Albumin Total Amylase Lipase COVID-19 (LORENZO) Current Medications Generic Name Dose Route Start Last Admin Trade Name Freq PRN Reason Stop Dose Admin Acetaminophen 1,000 mg 11/01/19 15:48 11/01/19 17:01 Ofirmev Injection - IVPB 11/02/19 15:48 1,000 mg Q6H PRN Administration PAIN LEVEL 6-10 Acetaminophen 650 mg 11/01/19 16:07 Tylenol - PO Q6H PRN Fever Or Pain 6-10 Albuterol/Ipratropium 1 amp 10/31/19 13:46 Duoneb - NEB Q4H PRN SHORTNESS OF BREATH Amlodipine Besylate 5 mg 10/31/19 14:00 11/01/19 09:43 Norvasc - PO 5 mg DAILY NITESH Administration Enoxaparin Sodium 40 mg 10/31/19 10:00 11/01/19 09:43 Lovenox - SQ 40 mg DAILY NITESH Administration Famotidine 20 mg 10/31/19 22:00 10/31/19 21:54 Pepcid - PO Not Given HS NITESH Ceftriaxone Sodium 1 gm/ 50 mls @ 100 mls/hr 10/31/19 10:00 11/01/19 09:43 Dextrose IVPB 100 mls/hr DAILY NITESH Administration Protocol Potassium Chloride/Sodium Chloride 20 meq in 1,000 mls @ 100 mls/hr 10/31/19 15:30 11/01/19 17:01 1/2ns+20meq Kcl IV Not Given ASDIR NITESH Insulin Aspart 1 vial 10/30/19 22:00 11/01/19 17:09 Novolog Vial Sliding Scale - SQ Not Given ACHS NITESH Protocol Levothyroxine Sodium 20 mcg 10/31/19 10:00 11/01/19 09:44 Synthroid Injection - IVPUSH 20 mcg DAILY NITESH Administration Montelukast Sodium 10 mg 10/31/19 22:00 10/31/19 21:54 Singulair - PO Not Given HS NITESH Ondansetron HCl 4 mg 10/30/19 21:29 Zofran Injection IVPUSH Q8H PRN NAUSEA Risperidone 1 mg 11/01/19 10:00 11/01/19 09:43 Risperdal - PO 1 mg DAILY NITESH Administration Home Medications Medication Instructions Recorded Alendronate Sodium [Fosamax] 1 tab PO WEEKLY 10/30/19 Amlodipine Besylate 5 mg PO DAILY 10/30/19 Aripiprazole 5 mg PO DAILY 10/30/19 Aspirin [Aspirin EC] 81 mg PO DAILY 10/30/19 Clopidogrel Bisulfate [Clopidogrel] 75 mg PO DAILY 10/30/19 Cyclobenzaprine HCl 10 mg PO Q8H 10/30/19 Diclofenac Potassium 50 mg PO DAILY 10/30/19 Ferrous Sulfate [Feosol] 325 mg PO DAILY 10/30/19 Fluticasone Prop 0.05% Nasal 1 spray IN BID PRN 10/30/19 [Flonase -] Levothyroxine [Synthroid -] 25 mcg PO DAILY 10/30/19 Montelukast Na [Singulair -] 10 mg PO DAILY 10/30/19 Pravastatin Sodium [Pravachol (Nf)] 80 mg PO DAILY 10/30/19 Risperidone 1 mg PO BID 10/30/19 Solifenacin Succinate [Vesicare -] 10 mg PO DAILY 10/30/19 Acetaminophen 650 mg PO BID 10/31/19 Albuterol 2.5/Ipratropium 0.5 1 neb NEB Q4H PRN 10/31/19 [Duoneb -] Albuterol Sulfate [Albuterol 8.5 gm IH Q4D PRN 10/31/19 Sulfate Hfa] Famotidine 20 mg PO HS 10/31/19 Fluticasone/Vilanterol [Breo 1 each IH DAILY 10/31/19 Ellipta 200-25 Mcg INH] Polyethylene Glycol 3350 17 gm PO DAILY 10/31/19 Sennosides [Senna] 8.6 mg PO BID 10/31/19 Simethicone [Gas Relief] 80 mg PO Q6D 10/31/19 ASSESSMENT AND PLAN: 74 year old female with history of Schizophrenia, Seizure Disorder (last seizure remote, not on Meds), COPD, DM 2, Parkinson's Disease, HTN, HLD, GERD, Anemia, prior SBO a few months ago, and Asthma, presents from [facility] with abdominal pain, nausea, vomiting, urinary frequency/dysuria. 1. Acute SBO, recurrent CT A/P - proximal bowel distention, improved with NGT placement Continue NGT decompression, IV hydration GI, Surgery following. For repeat CT A/P with contrast via NG tube 2. UA suggestive of UTI Urine Cx contaminated Empiric Ceftraixone pending repeat Urine cx. 3. DM 2 - Maintain on Novolog sliding scale. 4. Schizophrenia - Continue Risperidone, Aripiprazole once home meds confirmed. 5. Hypothyroidism - continue Levothyroxine. 6. Parkinson's Disease - on cyclobenzaprine chronically. 7. HTN - Continue Norvasc 8. Asthma/COPD - stable. On Breo ellipta, Albuterol, Montelukast chronically 9. Overactive Bladder - continue Vesicare. 10. HLD - on Statin at home. DVT Px - Lovenox SQ GI Px - Famotidine
[2019-11-01] MEDS: FAMOTIDINE 20 MG TABLET PO SCH (21:12)
[2019-11-01] MEDS: MONTELUKAST NA 10 MG TABLET PO SCH (21:12)
[2019-11-02] MEDS: SODIUM CHLORIDE 0.45%/POT 20 MEQ/1,000 ML INFUS.BAG IV SCH ×4 (02:19→23:32)
[2019-11-02] MEDS: INSULIN SLIDING SCALE (NOVOLOG) 1 VIAL SQ SCH ×4 (06:01→21:12)
[2019-11-02 08:32] LABS: BASO % 0.3 % (0-2.0); EOS % 1.2 % (0-4.5); HEMATOCRIT 38.3 % (32.4-45.2); HEMOGLOBIN 13.1 GM/dL (10.7-15.3); LYMPH % 14.3 % (8-40); MCH 31.6 pg (25.7-33.7); MCHC 34.2 g/dl (32.0-36.0); MEAN CELL VOLUME 92.4 fl (80-96); MEAN PLT VOLUME 8.6 fl (7.5-11.1); MONO % 4.6 % (3.8-10.2); NEUT % 79.6 % (42.8-82.8); PLATELET COUNT 229 K/MM3 (134-434); RBC 4.14 M/mm3 (3.60-5.2); RDW 14.1 % (11.6-15.6); WHITE BLOOD COUNT 9.3 K/mm3 (4.0-10.0)
--- NOTE | 2019-11-02 08:39 | PN ---
Progress Note (short form) - Note Progress Note: surgery 11/[address] shows likely resolution of sbo/ileus. recommend removal of ngt today and starting liquids tomorrow. would stay on liquids for 1 week before advancing. can resume Plavix if tolerating diet for 24 hours. surgery 10/30 74 female on psych meds, on plavix, has suboptimal ct without oral contrast showing psbo vs ileus. I requested a repeat ct with oral contrast via ngt but I dont see any contrast on that second study. ngt minimal output. abd-soft, nt, moderate distension. plan- suspect ileus> mechanical sbo. An oral contrast CT (using ngt) would be helpful. Should probably hold Plavix if surgery is a possibility. Pt is non toxic without evidence of bowel compromise.
[2019-11-02 08:45] LABS: BLOOD UREA NITROGEN 5.7 mg/dL (7-18); CALCIUM 8.1 mg/dL (8.5-10.1); CREATININE 0.5 mg/dL (0.55-1.3); POTASSIUM 4.4 mmol/L (3.5-5.1)
[2019-11-02] MEDS ORDERED: DEXTROSE 5%-WATER - 50 ML IVPB ONE (09:39)
[2019-11-02] MEDS ORDERED: cefTRIAXone SODIUM 1 GM VIAL ONE (09:39)
[2019-11-02] MEDS: amLODIPine BESYLATE 5 MG TABLET (FP) PO SCH (09:43)
[2019-11-02] MEDS: ENOXAPARIN NA (PORCINE) 40 MG/0.4 ML DISP.SYRIN SQ SCH (09:43)
[2019-11-02] MEDS: ACETAMINOPHEN 325 MG TABLET (FP) PO PRN (09:43)
[2019-11-02] MEDS: CEFTRIAXONE 1 GM in DEXTROSE 5%-WATER - 50 ML IVPB SCH (09:44)
[2019-11-02] MEDS: risperiDONE 1 MG TABLET PO SCH (09:45)
[2019-11-02] MEDS: LEVOTHYROXINE SODIUM 100 MCG VIAL IVPUSH SCH (09:45)
[2019-11-02 12:25] LABS: PLATELET ESTIMATE ADEQUATE
--- NOTE | 2019-11-02 12:47 | PN ---
Physical Exam: SUBJECTIVE: Patient seen and examined at bedside. No acute events reported overnight. Patient endorses passing flatus. OBJECTIVE: Vital Signs Period Temp Pulse Resp BP Sys/Lin Pulse Ox Last 24 Hr 98.5 F-98.7 F 80-89 18-18 135-158/58-73 90-99 GENERAL: AAOx3, in no acute distress HEENT: NCAT, PERRLA, EOMI, sclera anicteric, conjunctiva clear, oropharynx clear w/o exudates. MMM. NECK: Normal ROM, supple, no lymphadenopathy, JVD, or masses LUNGS: CTABL no wheezes/ rhonchi/ rales. No distress, speaks in full sentences. No increased work of breathing. HEART: RRR, normal S1 S2, no R/G, peripheral pulses 2+ and equal b/l, + systolic murmur ABDOMEN: Soft, diffuse tenderness with most pain in RLQ, + BS. No guarding or rebound. No hepatomegaly or splenomegaly. MSK: ROM WNL EXTREMITIES: Normal inspection. No peripheral edema. No clubbing or cyanosis. NEUROLOGICAL: CN II-XII intact. Normal speech, normal gait, no focal sensorimotor deficits. SKIN: Warm, Dry, normal turgor, no rashes or lesions noted Laboratory Results - last 24 hr CBC, BMP 11/02/19 06:40 11/02/19 06:40 11/01/19 11/01/19 11/02/19 17:00 21:10 05:16 WBC RBC Hgb Hct MCV MCH MCHC RDW Plt Count MPV Absolute Neuts (auto) Total Counted Neutrophils % Neutrophils % (Manual) Band Neutrophils % Lymphocytes % Lymphocytes % (Manual) Monocytes % Monocytes % (Manual) Eosinophils % Eosinophils % (Manual) Basophils % Nucleated RBC % Platelet Estimate Sodium Potassium Chloride Carbon Dioxide Anion Gap BUN Creatinine Est GFR (CKD-EPI)AfAm Est GFR (CKD-EPI)NonAf POC Glucometer 74 72 81 Random Glucose Calcium 11/02/19 11/02/19 11/02/19 06:40 06:40 11:14 WBC 9.3 RBC 4.14 Hgb 13.1 Hct 38.3 MCV 92.4 MCH 31.6 MCHC 34.2 RDW 14.1 Plt Count 229 MPV 8.6 Absolute Neuts (auto) 7.4 Total Counted 100 Neutrophils % 79.6 D Neutrophils % (Manual) 70.0 Band Neutrophils % 3.0 Lymphocytes % 14.3 D Lymphocytes % (Manual) 18.0 Monocytes % 4.6 Monocytes % (Manual) 7 Eosinophils % 1.2 Eosinophils % (Manual) 2.0 Basophils % 0.3 Nucleated RBC % 0 Platelet Estimate Adequate Sodium 139 Potassium 4.4 Chloride 109 H Carbon Dioxide 22 Anion Gap 9 BUN 5.7 L Creatinine 0.5 L Est GFR (CKD-EPI)AfAm 111.28 Est GFR (CKD-EPI)NonAf 96.02 POC Glucometer 84 Random Glucose 72 L Calcium 8.1 L Active Medications Generic Name Dose Route Start Last Admin Trade Name Freq PRN Reason Stop Dose Admin Acetaminophen 650 mg 11/01/19 16:07 11/02/19 09:43 Tylenol - PO 650 mg Q6H PRN Administration Fever Or Pain 6-10 Albuterol/Ipratropium 1 amp 10/31/19 13:46 Duoneb - NEB Q4H PRN SHORTNESS OF BREATH Amlodipine Besylate 5 mg 10/31/19 14:00 11/02/19 09:43 Norvasc - PO 5 mg DAILY NITESH Administration Enoxaparin Sodium 40 mg 10/31/19 10:00 11/02/19 09:43 Lovenox - SQ 40 mg DAILY NITESH Administration Famotidine 20 mg 10/31/19 22:00 11/01/19 21:12 Pepcid - PO 20 mg HS NITESH Administration Ceftriaxone Sodium 1 gm/ 50 mls @ 100 mls/hr 10/31/19 10:00 11/02/19 09:44 Dextrose IVPB 100 mls/hr DAILY NITESH Administration Protocol Potassium Chloride/Sodium Chloride 20 meq in 1,000 mls @ 100 mls/hr 10/31/19 15:30 11/02/19 02:19 1/2ns+20meq Kcl IV 100 mls/hr ASDIR NITESH Administration Insulin Aspart 1 vial 10/30/19 22:00 11/02/19 11:15 Novolog Vial Sliding Scale - SQ Not Given ACHS NITESH Protocol Levothyroxine Sodium 20 mcg 10/31/19 10:00 11/02/19 09:45 Synthroid Injection - IVPUSH 20 mcg DAILY NITESH Administration Montelukast Sodium 10 mg 10/31/19 22:00 11/01/19 21:12 Singulair - PO 10 mg HS NITESH Administration Ondansetron HCl 4 mg 10/30/19 21:29 Zofran Injection IVPUSH Q8H PRN NAUSEA Risperidone 1 mg 11/01/19 10:00 11/02/19 09:45 Risperdal - PO 1 mg DAILY NITESH Administration ASSESSMENT/PLAN: 74 y/o lady patient with PMX of Schizophrenia, Hx of Seizures (last seizure over 10 years ago), COPD, DM (A1C 6.4% on 09/28), Parkinson's Disease, HTN, HLD, GERD, Anemia, SBO a few months ago, and Asthma, who presents brought in by EMS from [place] for 10 abdominal pain with nausea, and non bloody vomiting. #Small Bowel Obstruction-recurrent -CT A/P with contrast showing marked improvement of SBO -still NPO today -d/c NGT tomorrow at 5 AM and start clear liquid diet -c/w IV hydration - IV Acetaminophen Q8H PRN for pain -Zofran 4 mg Q8H PRN for nausea -plavix d/c in case pt goes to surgery; can resume plavix once pt tolerates clears as per surgery -surgery consult: continue to medically manage for now -monitor for flatus and bowel movements #UTI -ca-oxalate crystals noted -UA was contaminated so repeat UA was ordered -abx: Rocephin #Hypothyroidism -restarted Synthroid at home dose #HTN -monitor BP -c/w norvasc #DM -ISS w BGM #GERD -Pepcid HS #COPD -Duoneb Q4 PRN #Schizophrenia -c/w Risperidone -c/w Aripiprazole #Parkinson's Disease -c/w cyclobenzaprine #Overactive Bladder -c/w Vesicare #FEN -1/2 NS w 20 meq KCl @ 100 mls/hr -monitor lytes; replete PRN -NPO #Ppx -Lovenox SQ dispo- continue to monitor in m/s Visit type - Emergency Visit Emergency Visit: No - New Patient This patient is new to me today: No - Critical Care Critical Care patient: No - Discharge Referral Referred to [facility] No - Medication Review Med list reviewed for High Risk Meds patients 65 and older: Yes ATTENDING PHYSICIAN STATEMENT I saw and evaluated the patient. I reviewed the resident's note and discussed the case with the resident. I agree with the resident's findings and plan as documented. SUBJECTIVE: OBJECTIVE: ASSESSMENT AND PLAN:
--- NOTE | 2019-11-02 15:33 | PN ---
Teaching Attending Note Name of Resident: Morris Culp ATTENDING PHYSICIAN STATEMENT I saw and evaluated the patient. I reviewed the resident's note and discussed the case with the resident. I agree with the resident's findings and plan as documented. SUBJECTIVE: Ongoing abdominal pain. Passing gas. OBJECTIVE: Afebrile, Hemodynamically Stable. Last Vital Signs Temp Pulse Resp BP Pulse Ox 99.0 F 85 18 144/66 97 11/02/19 13:42 11/02/19 13:42 11/02/19 13:42 11/02/19 13:42 11/02/19 10:00 HEENT - Atraumatic. NGT in situ, high output > 500ml Heart - S1, S2, RRR Lungs - clear to auscultation Abdomen - Soft, mild generalized tenderness. Bowel Sounds normal. Extremities - trace edema, no calf tenderness. Laboratory Results - last 24 hr 11/01/19 11/01/19 11/02/19 17:00 21:10 05:16 WBC RBC Hgb Hct MCV MCH MCHC RDW Plt Count MPV Absolute Neuts (auto) Total Counted Neutrophils % Neutrophils % (Manual) Band Neutrophils % Lymphocytes % Lymphocytes % (Manual) Monocytes % Monocytes % (Manual) Eosinophils % Eosinophils % (Manual) Basophils % Nucleated RBC % Platelet Estimate Sodium Potassium Chloride Carbon Dioxide Anion Gap BUN Creatinine Est GFR (CKD-EPI)AfAm Est GFR (CKD-EPI)NonAf POC Glucometer 74 72 81 Random Glucose Calcium 11/02/19 11/02/19 11/02/19 06:40 06:40 11:14 WBC 9.3 RBC 4.14 Hgb 13.1 Hct 38.3 MCV 92.4 MCH 31.6 MCHC 34.2 RDW 14.1 Plt Count 229 MPV 8.6 Absolute Neuts (auto) 7.4 Total Counted 100 Neutrophils % 79.6 D Neutrophils % (Manual) 70.0 Band Neutrophils % 3.0 Lymphocytes % 14.3 D Lymphocytes % (Manual) 18.0 Monocytes % 4.6 Monocytes % (Manual) 7 Eosinophils % 1.2 Eosinophils % (Manual) 2.0 Basophils % 0.3 Nucleated RBC % 0 Platelet Estimate Adequate Sodium 139 Potassium 4.4 Chloride 109 H Carbon Dioxide 22 Anion Gap 9 BUN 5.7 L Creatinine 0.5 L Est GFR (CKD-EPI)AfAm 111.28 Est GFR (CKD-EPI)NonAf 96.02 POC Glucometer 84 Random Glucose 72 L Calcium 8.1 L Current Medications Generic Name Dose Route Start Last Admin Trade Name Freq PRN Reason Stop Dose Admin Acetaminophen 650 mg 11/01/19 16:07 11/02/19 09:43 Tylenol - PO 650 mg Q6H PRN Administration Fever Or Pain 6-10 Albuterol/Ipratropium 1 amp 10/31/19 13:46 Duoneb - NEB Q4H PRN SHORTNESS OF BREATH Amlodipine Besylate 5 mg 10/31/19 14:00 11/02/19 09:43 Norvasc - PO 5 mg DAILY NITESH Administration Enoxaparin Sodium 40 mg 10/31/19 10:00 11/02/19 09:43 Lovenox - SQ 40 mg DAILY NITESH Administration Famotidine 20 mg 10/31/19 22:00 11/01/19 21:12 Pepcid - PO 20 mg HS NITESH Administration Ceftriaxone Sodium 1 gm/ 50 mls @ 100 mls/hr 10/31/19 10:00 11/02/19 09:44 Dextrose IVPB 100 mls/hr DAILY NITESH Administration Protocol Potassium Chloride/Sodium Chloride 20 meq in 1,000 mls @ 100 mls/hr 10/31/19 15:30 11/02/19 13:56 1/2ns+20meq Kcl IV 100 mls/hr ASDIR NITESH Administration Insulin Aspart 1 vial 10/30/19 22:00 11/02/19 11:15 Novolog Vial Sliding Scale - SQ Not Given ACHS NITESH Protocol Levothyroxine Sodium 20 mcg 10/31/19 10:00 11/02/19 09:45 Synthroid Injection - IVPUSH 20 mcg DAILY NITESH Administration Montelukast Sodium 10 mg 10/31/19 22:00 11/01/19 21:12 Singulair - PO 10 mg HS NITESH Administration Ondansetron HCl 4 mg 10/30/19 21:29 Zofran Injection IVPUSH Q8H PRN NAUSEA Risperidone 1 mg 11/01/19 10:00 11/02/19 09:45 Risperdal - PO 1 mg DAILY NITESH Administration Home Medications Medication Instructions Recorded Alendronate Sodium [Fosamax] 1 tab PO WEEKLY 10/30/19 Amlodipine Besylate 5 mg PO DAILY 10/30/19 Aripiprazole 5 mg PO DAILY 10/30/19 Aspirin [Aspirin EC] 81 mg PO DAILY 10/30/19 Clopidogrel Bisulfate [Clopidogrel] 75 mg PO DAILY 10/30/19 Cyclobenzaprine HCl 10 mg PO Q8H 10/30/19 Diclofenac Potassium 50 mg PO DAILY 10/30/19 Ferrous Sulfate [Feosol] 325 mg PO DAILY 10/30/19 Fluticasone Prop 0.05% Nasal 1 spray IN BID PRN 10/30/19 [Flonase -] Levothyroxine [Synthroid -] 25 mcg PO DAILY 10/30/19 Montelukast Na [Singulair -] 10 mg PO DAILY 10/30/19 Pravastatin Sodium [Pravachol (Nf)] 80 mg PO DAILY 10/30/19 Risperidone 1 mg PO BID 10/30/19 Solifenacin Succinate [Vesicare -] 10 mg PO DAILY 10/30/19 Acetaminophen 650 mg PO BID 10/31/19 Albuterol 2.5/Ipratropium 0.5 1 neb NEB Q6H PRN 10/31/19 [Duoneb -] Albuterol Sulfate [Albuterol 8.5 gm IH Q6H PRN 10/31/19 Sulfate Hfa] Famotidine 40 mg PO HS 10/31/19 Fluticasone/Vilanterol [Breo 1 each IH DAILY 10/31/19 Ellipta 200-25 Mcg INH] Polyethylene Glycol 3350 17 gm PO DAILY 10/31/19 Sennosides [Senna] 8.6 mg PO BID 10/31/19 Simethicone [Gas Relief] 80 mg PO Q6D 10/31/19 ASSESSMENT AND PLAN: 74 year old female resident of [facility] with history of Schizophrenia, Seizure Disorder (last seizure remote, not on Meds), COPD, DM 2, Parkinson's Disease, HTN, HLD, GERD, Anemia, prior SBO a few months ago, and Asthma, presents from [facility] with abdominal pain, nausea, vomiting, urinary frequency/dysuria. 1. Acute SBO, recurrent CT A/P - proximal bowel distention, improved with NGT placement Continue NGT decompression, IV hydration GI, Surgery following. Repeat CT A/P with contrast via NG tube shows marked improvement in SBO from 10/29 but she has ongoing symptoms and high output from NGT Will maintain NGT overnight, with removal in AM. 2. UA suggestive of UTI Urine Cx contaminated Empiric Ceftraixone pending repeat Urine Cx. 3. DM 2 - Maintain on Novolog sliding scale. 4. Schizophrenia - Continue Risperidone, Aripiprazole once home meds confirmed. 5. Hypothyroidism - continue Levothyroxine. 6. Parkinson's Disease - on cyclobenzaprine chronically. 7. HTN - Continue Norvasc 8. Asthma/COPD - stable. On Breo ellipta, Albuterol, Montelukast chronically 9. Overactive Bladder - continue Vesicare once med confirmed. 10. HLD - on Statin at home. DVT Px - Lovenox SQ GI Px - Famotidine
[2019-11-02] MEDS: FAMOTIDINE 20 MG TABLET PO SCH (21:12)
[2019-11-02] MEDS: MONTELUKAST NA 10 MG TABLET PO SCH (21:12)
[2019-11-03] MEDS: ACETAMINOPHEN 325 MG TABLET (FP) PO PRN ×2 (04:58→13:41)
[2019-11-03] MEDS: INSULIN SLIDING SCALE (NOVOLOG) 1 VIAL SQ SCH ×4 (06:11→21:07)
[2019-11-03 07:23] LABS: BASO % 0.7 % (0-2.0); EOS % 2.3 % (0-4.5); HEMATOCRIT 40.2 % (32.4-45.2); HEMOGLOBIN 13.4 GM/dL (10.7-15.3); LYMPH % 16.6 % (8-40); MCH 30.7 pg (25.7-33.7); MCHC 33.3 g/dl (32.0-36.0); MEAN CELL VOLUME 92.1 fl (80-96); MEAN PLT VOLUME 7.9 fl (7.5-11.1); MONO % 5.4 % (3.8-10.2); PLATELET COUNT 261 K/MM3 (134-434); RBC 4.37 M/mm3 (3.60-5.2); RDW 13.9 % (11.6-15.6); WHITE BLOOD COUNT 9.8 K/mm3 (4.0-10.0)
[2019-11-03 07:49] LABS: BLOOD UREA NITROGEN 6.6 mg/dL (7-18); CALCIUM 8.7 mg/dL (8.5-10.1); CREATININE 0.5 mg/dL (0.55-1.3); POTASSIUM 4.7 mmol/L (3.5-5.1)
[2019-11-03 09:50] LABS: ANISOCYTOSIS 1+; MACROCYTOSIS 0; PLATELET ESTIMATE NORMAL
[2019-11-03] MEDS ORDERED: DEXTROSE 5%-WATER - 50 ML IVPB ONE (10:17)
[2019-11-03] MEDS ORDERED: cefTRIAXone SODIUM 1 GM VIAL ONE (10:17)
[2019-11-03] MEDS: SODIUM CHLORIDE 0.45%/POT 20 MEQ/1,000 ML INFUS.BAG IV SCH (10:20)
[2019-11-03] MEDS: risperiDONE 1 MG TABLET PO SCH (10:21)
[2019-11-03] MEDS: CEFTRIAXONE 1 GM in DEXTROSE 5%-WATER - 50 ML IVPB SCH (10:21)
[2019-11-03] MEDS: ENOXAPARIN NA (PORCINE) 40 MG/0.4 ML DISP.SYRIN SQ SCH (10:21)
[2019-11-03] MEDS: amLODIPine BESYLATE 5 MG TABLET (FP) PO SCH (10:21)
[2019-11-03] MEDS: LEVOTHYROXINE SODIUM 100 MCG VIAL IVPUSH SCH (10:23)
--- NOTE | 2019-11-03 12:31 | PN ---
Physical Exam: SUBJECTIVE: Patient seen and examined at bedside. No acute events reported overnight. OBJECTIVE: Vital Signs Period Temp Pulse Resp BP Sys/Lin Pulse Ox Last 24 Hr 98.4 F-99.0 F 82-85 18-20 144-159/66-70 95-100 GENERAL: AAOx3, in no acute distress HEENT: NCAT, PERRLA, EOMI, sclera anicteric, conjunctiva clear, oropharynx clear w/o exudates. MMM. NECK: Normal ROM, supple, no lymphadenopathy, JVD, or masses LUNGS: CTABL no wheezes/ rhonchi/ rales. No distress, speaks in full sentences. No increased work of breathing. HEART: RRR, normal S1 S2, no R/G, peripheral pulses 2+ and equal b/l, + systolic murmur ABDOMEN: Soft, diffuse tenderness improved from yesterday, + BS. No guarding or rebound. No hepatomegaly or splenomegaly. MSK: ROM WNL EXTREMITIES: Normal inspection. No peripheral edema. No clubbing or cyanosis. NEUROLOGICAL: CN II-XII intact. Normal speech, normal gait, no focal senso rimotor deficits. SKIN: Warm, Dry, normal turgor, no rashes or lesions noted Laboratory Results - last 24 hr CBC, BMP 11/03/19 06:42 11/03/19 06:42 11/02/19 11/02/19 11/03/19 17:30 21:15 05:35 WBC RBC Hgb Hct MCV MCH MCHC RDW Plt Count MPV Absolute Neuts (auto) Neutrophils % Neutrophils % (Manual) Band Neutrophils % Lymphocytes % Lymphocytes % (Manual) Monocytes % Monocytes % (Manual) Eosinophils % Eosinophils % (Manual) Basophils % Basophils % (Manual) Myelocytes % (Man) Promyelocytes % (Man) Blast Cells % (Manual) Nucleated RBC % Metamyelocytes Hypochromia Platelet Estimate Polychromasia Poikilocytosis Anisocytosis Microcytosis Macrocytosis Sodium Potassium Chloride Carbon Dioxide Anion Gap BUN Creatinine Est GFR (CKD-EPI)AfAm Est GFR (CKD-EPI)NonAf POC Glucometer 75 72 76 Random Glucose Calcium 11/03/19 11/03/19 06:42 06:42 WBC 9.8 RBC 4.37 Hgb 13.4 Hct 40.2 MCV 92.1 MCH 30.7 MCHC 33.3 RDW 13.9 Plt Count 261 MPV 7.9 Absolute Neuts (auto) 7.3 Neutrophils % 75.0 Neutrophils % (Manual) 80.6 Band Neutrophils % 0.0 Lymphocytes % 16.6 Lymphocytes % (Manual) 14.3 D Monocytes % 5.4 Monocytes % (Manual) 2 L Eosinophils % 2.3 D Eosinophils % (Manual) 1.0 Basophils % 0.7 Basophils % (Manual) 0.0 Myelocytes % (Man) 0 D Promyelocytes % (Man) 0 Blast Cells % (Manual) 0 Nucleated RBC % 5 H Metamyelocytes 0 D Hypochromia 0 Platelet Estimate Normal Polychromasia 0 Poikilocytosis 0 Anisocytosis 1+ Microcytosis 1+ Macrocytosis 0 Sodium 138 Potassium 4.7 Chloride 107 Carbon Dioxide 19 L Anion Gap 12 BUN 6.6 L Creatinine 0.5 L Est GFR (CKD-EPI)AfAm 111.28 Est GFR (CKD-EPI)NonAf 96.02 POC Glucometer Random Glucose 76 Calcium 8.7 Active Medications Generic Name Dose Route Start Last Admin Trade Name Freq PRN Reason Stop Dose Admin Acetaminophen 650 mg 11/01/19 16:07 11/03/19 04:58 Tylenol - PO 650 mg Q6H PRN Administration Fever Or Pain 6-10 Albuterol/Ipratropium 1 amp 10/31/19 13:46 Duoneb - NEB Q4H PRN SHORTNESS OF BREATH Amlodipine Besylate 5 mg 10/31/19 14:00 11/03/19 10:21 Norvasc - PO 5 mg DAILY NITESH Administration Enoxaparin Sodium 40 mg 10/31/19 10:00 11/03/19 10:21 Lovenox - SQ 40 mg DAILY NITESH Administration Famotidine 20 mg 10/31/19 22:00 11/02/19 21:12 Pepcid - PO 20 mg HS NITESH Administration Ceftriaxone Sodium 1 gm/ 50 mls @ 100 mls/hr 10/31/19 10:00 11/03/19 10:21 Dextrose IVPB 100 mls/hr DAILY NITESH Administration Protocol Potassium Chloride/Sodium Chloride 20 meq in 1,000 mls @ 100 mls/hr 10/31/19 15:30 11/03/19 10:20 1/2ns+20meq Kcl IV 100 mls/hr ASDIR NITESH Administration Insulin Aspart 1 vial 10/30/19 22:00 11/03/19 12:13 Novolog Vial Sliding Scale - SQ Not Given ACHS [facility] Protocol Levothyroxine Sodium 20 mcg 10/31/19 10:00 11/03/19 10:23 Synthroid Injection - IVPUSH 20 mcg DAILY NITESH Administration Montelukast Sodium 10 mg 10/31/19 22:00 11/02/19 21:12 Singulair - PO 10 mg HS NITESH Administration Ondansetron HCl 4 mg 10/30/19 21:29 Zofran Injection IVPUSH Q8H PRN NAUSEA Risperidone 1 mg 11/01/19 10:00 11/03/19 10:21 Risperdal - PO 1 mg DAILY NITESH Administration ASSESSMENT/PLAN: 74 y/o lady patient with PMX of Schizophrenia, Hx of Seizures (last seizure over 10 years ago), COPD, DM (A1C 6.4% on 09/28), Parkinson's Disease, HTN, HLD, GERD, Anemia, SBO a few months ago, and Asthma, who presents brought in by EMS from [place] for 10/10 abdominal pain with nausea, and non bloody vomiting. #Small Bowel Obstruction-recurrent -CT A/P with contrast showing marked improvement of SBO -d/c NGT today - started clear liquid diet- tolerating well -c/w IV hydration - IV Acetaminophen Q8H PRN for pain -Zofran 4 mg Q8H PRN for nausea -resumed plavix since patient is tolerating diet -surgery consult: continue to medically manage for now -monitor for flatus and bowel movements #UTI -ca-oxalate crystals noted -UA was contaminated so repeat UA was ordered -abx: currently on Rocephin #Hypothyroidism -restarted Synthroid at home dose #HTN -monitor BP -c/w norvasc #DM -ISS w BGM #GERD -Pepcid HS #COPD -Duoneb Q4 PRN #Schizophrenia -c/w Risperidone -c/w Aripiprazole #Parkinson's Disease -c/w cyclobenzaprine #Overactive Bladder -c/w Vesicare #FEN -1/2 NS w/ 20 meq KCL @ 75 mls/hr -monitor lytes; replete PRN -clear liquid diet #Ppx -Lovenox SQ dispo- continue to monitor in m/s Visit type - Emergency Visit Emergency Visit: No - New Patient This patient is new to me today: No - Critical Care Critical Care patient: No - Medication Review Med list reviewed for High Risk Meds patients 65 and older: Yes ATTENDING PHYSICIAN STATEMENT I saw and evaluated the patient. I reviewed the resident's note and discussed the case with the resident. I agree with the resident's findings and plan as documented. SUBJECTIVE: OBJECTIVE: ASSESSMENT AND PLAN:
--- NOTE | 2019-11-03 15:08 | PN ---
Teaching Attending Note Name of Resident: Morris Culp ATTENDING PHYSICIAN STATEMENT I saw and evaluated the patient. I reviewed the resident's note and discussed the case with the resident. I agree with the resident's findings and plan as documented. SUBJECTIVE: Abdominal pain improving. Tolerated clear liquid diet this AM, without nausea/vomiting. Passing gas. OBJECTIVE: Afebrile, Hemodynamically Stable. Last Vital Signs Temp Pulse Resp BP Pulse Ox 98.0 F 99 H 18 153/73 97 11/03/19 15:01 11/03/19 15:01 11/03/19 15:01 11/03/19 15:01 11/03/19 15:01 HEENT - Atraumatic. NGT removed. Heart - S1, S2, RRR Lungs - clear to auscultation Abdomen - Soft, mild generalized tenderness improved. Bloating improved. Bowel Sounds normal. Extremities - trace edema, no calf tenderness. Laboratory Results - last 24 hr 11/02/19 11/02/19 11/03/19 17:30 21:15 05:35 WBC RBC Hgb Hct MCV MCH MCHC RDW Plt Count MPV Absolute Neuts (auto) Neutrophils % Neutrophils % (Manual) Band Neutrophils % Lymphocytes % Lymphocytes % (Manual) Monocytes % Monocytes % (Manual) Eosinophils % Eosinophils % (Manual) Basophils % Basophils % (Manual) Myelocytes % (Man) Promyelocytes % (Man) Blast Cells % (Manual) Nucleated RBC % Metamyelocytes Hypochromia Platelet Estimate Polychromasia Poikilocytosis Anisocytosis Microcytosis Macrocytosis Sodium Potassium Chloride Carbon Dioxide Anion Gap BUN Creatinine Est GFR (CKD-EPI)AfAm Est GFR (CKD-EPI)NonAf POC Glucometer 75 72 76 Random Glucose Calcium 11/03/19 11/03/19 06:42 06:42 WBC 9.8 RBC 4.37 Hgb 13.4 Hct 40.2 MCV 92.1 MCH 30.7 MCHC 33.3 RDW 13.9 Plt Count 261 MPV 7.9 Absolute Neuts (auto) 7.3 Neutrophils % 75.0 Neutrophils % (Manual) 80.6 Band Neutrophils % 0.0 Lymphocytes % 16.6 Lymphocytes % (Manual) 14.3 D Monocytes % 5.4 Monocytes % (Manual) 2 L Eosinophils % 2.3 D Eosinophils % (Manual) 1.0 Basophils % 0.7 Basophils % (Manual) 0.0 Myelocytes % (Man) 0 D Promyelocytes % (Man) 0 Blast Cells % (Manual) 0 Nucleated RBC % 5 H Metamyelocytes 0 D Hypochromia 0 Platelet Estimate Normal Polychromasia 0 Poikilocytosis 0 Anisocytosis 1+ Microcytosis 1+ Macrocytosis 0 Sodium 138 Potassium 4.7 Chloride 107 Carbon Dioxide 19 L Anion Gap 12 BUN 6.6 L Creatinine 0.5 L Est GFR (CKD-EPI)AfAm 111.28 Est GFR (CKD-EPI)NonAf 96.02 POC Glucometer Random Glucose 76 Calcium 8.7 Current Medications Generic Name Dose Route Start Last Admin Trade Name Freq PRN Reason Stop Dose Admin Acetaminophen 650 mg 11/01/19 16:07 11/03/19 13:41 Tylenol - PO 650 mg Q6H PRN Administration Fever Or Pain 6-10 Albuterol/Ipratropium 1 amp 10/31/19 13:46 Duoneb - NEB Q4H PRN SHORTNESS OF BREATH Amlodipine Besylate 5 mg 10/31/19 14:00 11/03/19 10:21 Norvasc - PO 5 mg DAILY NITESH Administration Enoxaparin Sodium 40 mg 10/31/19 10:00 11/03/19 10:21 Lovenox - SQ 40 mg DAILY NITESH Administration Famotidine 20 mg 10/31/19 22:00 11/02/19 21:12 Pepcid - PO 20 mg HS NITESH Administration Ceftriaxone Sodium 1 gm/ 50 mls @ 100 mls/hr 10/31/19 10:00 11/03/19 10:21 Dextrose IVPB 100 mls/hr DAILY NITESH Administration Protocol Potassium Chloride/Sodium Chloride 20 meq in 1,000 mls @ 100 mls/hr 10/31/19 15:30 11/03/19 10:20 1/2ns+20meq Kcl IV 100 mls/hr ASDIR NITESH Administration Insulin Aspart 1 vial 10/30/19 22:00 11/03/19 12:13 Novolog Vial Sliding Scale - SQ Not Given ACHS NITESH Protocol Levothyroxine Sodium 20 mcg 10/31/19 10:00 11/03/19 10:23 Synthroid Injection - IVPUSH 20 mcg DAILY NITESH Administration Montelukast Sodium 10 mg 10/31/19 22:00 11/02/19 21:12 Singulair - PO 10 mg HS NITESH Administration Ondansetron HCl 4 mg 10/30/19 21:29 Zofran Injection IVPUSH Q8H PRN NAUSEA Risperidone 1 mg 11/01/19 10:00 11/03/19 10:21 Risperdal - PO 1 mg DAILY NITESH Administration Home Medications Medication Instructions Recorded Alendronate Sodium [Fosamax] 1 tab PO WEEKLY 10/30/19 Amlodipine Besylate 5 mg PO DAILY 10/30/19 Aripiprazole 5 mg PO DAILY 10/30/19 Aspirin [Aspirin EC] 81 mg PO DAILY 10/30/19 Clopidogrel Bisulfate [Clopidogrel] 75 mg PO DAILY 10/30/19 Cyclobenzaprine HCl 10 mg PO Q8H 10/30/19 Diclofenac Potassium 50 mg PO DAILY 10/30/19 Ferrous Sulfate [Feosol] 325 mg PO DAILY 10/30/19 Fluticasone Prop 0.05% Nasal 1 spray IN BID PRN 10/30/19 [Flonase -] Levothyroxine [Synthroid -] 25 mcg PO DAILY 10/30/19 Montelukast Na [Singulair -] 10 mg PO DAILY 10/30/19 Pravastatin Sodium [Pravachol (Nf)] 80 mg PO DAILY 10/30/19 Risperidone 1 mg PO BID 10/30/19 Solifenacin Succinate [Vesicare -] 10 mg PO DAILY 10/30/19 Acetaminophen 650 mg PO BID 10/31/19 Albuterol 2.5/Ipratropium 0.5 1 neb NEB Q6H PRN 10/31/19 [Duoneb -] Albuterol Sulfate [Albuterol 8.5 gm IH Q6H PRN 10/31/19 Sulfate Hfa] Famotidine 40 mg PO HS 10/31/19 Fluticasone/Vilanterol [Breo 1 each IH DAILY 10/31/19 Ellipta 200-25 Mcg INH] Polyethylene Glycol 3350 17 gm PO DAILY 10/31/19 Sennosides [Senna] 8.6 mg PO BID 10/31/19 Simethicone [Gas Relief] 80 mg PO Q6D 10/31/19 ASSESSMENT AND PLAN: 74 year old female resident of [facility] with history of Schizophrenia, Seizure Disorder (last seizure remote, not on Meds), COPD, DM 2, Parkinson's Disease, HTN, HLD, GERD, Anemia, prior SBO a few months ago, and Asthma, presents from [facility] with abdominal pain, nausea, vomiting, urinary frequency/dysuria. 1. Acute SBO, recurrent CT A/P - proximal bowel distention, improved with NGT placement Repeat CT A/P with contrast via NG tube shows marked improvement in SBO from 10/29 but she has ongoing symptoms and high output from NGT s/p NGT removal, initiation of oral clear liquid diet. GI, Surgery following. 2. UA suggestive of UTI Urine Cx contaminated Empiric Ceftraixone - Day 4, for 1 additional day 3. DM 2 - Maintain on Novolog sliding scale. 4. Schizophrenia - Risperidone, Aripiprazole resumed. 5. Hypothyroidism - continue Levothyroxine. 6. Parkinson's Disease - on Cyclobenzaprine chronically. 7. HTN - Continue Norvasc 8. Asthma/COPD - stable. On Breo ellipta, Albuterol, Montelukast chronically 9. Overactive Bladder - continue Vesicare once med confirmed. 10. HLD - on Statin at home. DVT Px - Lovenox SQ GI Px - Famotidine
[2019-11-03] MEDS ORDERED: SODIUM CHLORIDE 0.45%/POT 20 MEQ/1,000 ML INFUS.BAG IV SCH (15:55)
[2019-11-03] MEDS: CLOPIDOGREL BISULFATE 75 MG TABLET (FP) PO SCH (16:54)
[2019-11-03] MEDS: CYCLOBENZAPRINE HCL 5 MG TABLET PO SCH ×2 (16:54→21:06)
[2019-11-03] MEDS: ARIPiprazole 5 MG TABLET PO SCH (17:24)
[2019-11-03] MEDS: SOLIFENACIN SUCCINATE 5 MG TAB PO SCH (17:24)
[2019-11-03] MEDS ORDERED: PT OWN MED DRAWER 7, Y5N ONE (20:28)
[2019-11-03] MEDS: FAMOTIDINE 20 MG TABLET PO SCH (21:06)
[2019-11-03] MEDS: MONTELUKAST NA 10 MG TABLET PO SCH (21:06)
[2019-11-03] MEDS: FLUTICASONE PROP 0.05% 16 GM NASAL SPRAY NS SCH (21:07)
[2019-11-04] MEDS: CYCLOBENZAPRINE HCL 5 MG TABLET PO SCH ×2 (05:23→14:08)
[2019-11-04] MEDS: INSULIN SLIDING SCALE (NOVOLOG) 1 VIAL SQ SCH ×3 (06:42→16:25)
[2019-11-04 07:19] LABS: BASO % 0.8 % (0-2.0); EOS % 3.1 % (0-4.5); HEMATOCRIT 39.1 % (32.4-45.2); LYMPH % 18.7 % (8-40); MCH 30.4 pg (25.7-33.7); MCHC 33.2 g/dl (32.0-36.0); MEAN CELL VOLUME 91.4 fl (80-96); MEAN PLT VOLUME 7.6 fl (7.5-11.1); NEUT % 69.4 % (42.8-82.8); PLATELET COUNT 246 K/MM3 (134-434); RBC 4.28 M/mm3 (3.60-5.2); RDW 14.2 % (11.6-15.6); WHITE BLOOD COUNT 7.6 K/mm3 (4.0-10.0)
[2019-11-04 07:38] LABS: BLOOD UREA NITROGEN 7.4 mg/dL (7-18); CALCIUM 8.7 mg/dL (8.5-10.1); CREATININE 0.7 mg/dL (0.55-1.3)
[2019-11-04] MEDS ORDERED: DEXTROSE 5%-WATER - 50 ML IVPB ONE (08:53)
[2019-11-04] MEDS ORDERED: cefTRIAXone SODIUM 1 GM VIAL ONE (08:53)
[2019-11-04] MEDS ORDERED: PT OWN MED DRAWER 7, Y5N ONE ×2 (08:53→11:15)
[2019-11-04] MEDS: ENOXAPARIN NA (PORCINE) 40 MG/0.4 ML DISP.SYRIN SQ SCH (09:09)
[2019-11-04] MEDS: amLODIPine BESYLATE 5 MG TABLET (FP) PO SCH (09:09)
[2019-11-04] MEDS: CEFTRIAXONE 1 GM in DEXTROSE 5%-WATER - 50 ML IVPB SCH (09:09)
[2019-11-04] MEDS: ARIPiprazole 5 MG TABLET PO SCH (09:09)
[2019-11-04] MEDS: SOLIFENACIN SUCCINATE 5 MG TAB PO SCH (09:10)
[2019-11-04] MEDS: LEVOTHYROXINE SODIUM 100 MCG VIAL IVPUSH SCH (09:10)
[2019-11-04] MEDS: CLOPIDOGREL BISULFATE 75 MG TABLET (FP) PO SCH (09:10)
[2019-11-04] MEDS: risperiDONE 1 MG TABLET PO SCH (09:10)
[2019-11-04 10:50] LABS: ANISOCYTOSIS 1+; MACROCYTOSIS 0; PLATELET ESTIMATE NORMAL
[2019-11-04] MEDS: FLUTICASONE PROP 0.05% 16 GM NASAL SPRAY NS SCH (11:24)
--- NOTE | 2019-11-04 12:05 | DS ---
Physical Exam: SUBJECTIVE: Patient seen and examined at bedside. No acute events reported overnight. OBJECTIVE: Vital Signs Period Temp Pulse Resp BP Sys/Lin Pulse Ox Last 24 Hr 98.0 F-98.5 F 80-99 18-18 131-153/61-83 94-97 PHYSICAL EXAM GENERAL: AAOx3, in no acute distress HEENT: NCAT, PERRLA, EOMI, sclera anicteric, conjunctiva clear, oropharynx clear w/o exudates. MMM. NECK: Normal ROM, supple, no lymphadenopathy, JVD, or masses LUNGS: CTABL no wheezes/ rhonchi/ rales. No distress, speaks in full sentences. No increased work of breathing. HEART: RRR, normal S1 S2, no R/G, peripheral pulses 2+ and equal b/l, + systolic murmur ABDOMEN: Soft, diffuse tenderness improved from yesterday, + BS. No guarding or rebound. No hepatomegaly or splenomegaly. MSK: ROM WNL EXTREMITIES: Normal inspection. No peripheral edema. No clubbing or cyanosis. NEUROLOGICAL: CN II-XII intact. Normal speech, normal gait, no focal sensorimotor deficits. SKIN: Warm, Dry, normal turgor, no rashes or lesions noted LABS Laboratory Results - last 24 hr CBC, BMP 11/04/19 06:52 11/04/19 06:52 11/03/19 11/03/19 11/04/19 16:58 21:03 05:43 WBC RBC Hgb Hct MCV MCH MCHC RDW Plt Count MPV Absolute Neuts (auto) Neutrophils % Neutrophils % (Manual) Band Neutrophils % Lymphocytes % Lymphocytes % (Manual) Monocytes % Monocytes % (Manual) Eosinophils % Eosinophils % (Manual) Basophils % Basophils % (Manual) Myelocytes % (Man) Promyelocytes % (Man) Blast Cells % (Manual) Nucleated RBC % Metamyelocytes Hypochromia Platelet Estimate Polychromasia Poikilocytosis Anisocytosis Microcytosis Macrocytosis Sodium Potassium Chloride Carbon Dioxide Anion Gap BUN Creatinine Est GFR (CKD-EPI)AfAm Est GFR (CKD-EPI)NonAf POC Glucometer 118 137 133 Random Glucose Calcium 11/04/19 11/04/19 11/04/19 06:52 06:52 11:26 WBC 7.6 RBC 4.28 Hgb 13.0 Hct 39.1 MCV 91.4 MCH 30.4 MCHC 33.2 RDW 14.2 Plt Count 246 MPV 7.6 Absolute Neuts (auto) 5.3 Neutrophils % 69.4 Neutrophils % (Manual) 61.2 Band Neutrophils % 1.0 Lymphocytes % 18.7 Lymphocytes % (Manual) 25.5 D Monocytes % 8.0 Monocytes % (Manual) 6 D Eosinophils % 3.1 Eosinophils % (Manual) 2.1 D Basophils % 0.8 Basophils % (Manual) 1.0 D Myelocytes % (Man) 1 D Promyelocytes % (Man) 0 Blast Cells % (Manual) 0 Nucleated RBC % 0 Metamyelocytes 0 Hypochromia 0 Platelet Estimate Normal Polychromasia 0 Poikilocytosis 0 Anisocytosis 1+ Microcytosis 1+ Macrocytosis 0 Sodium 140 Potassium 4.0 Chloride 108 H Carbon Dioxide 22 Anion Gap 10 BUN 7.4 Creatinine 0.7 Est GFR (CKD-EPI)AfAm 99.62 Est GFR (CKD-EPI)NonAf 85.95 POC Glucometer 107 Random Glucose 148 H Calcium 8.7 HOSPITAL COURSE: 74 year old female resident of [facility] with history of Schizophrenia, Seizure Disorder (last seizure remote, not on Meds), COPD, DM 2, Parkinson's Disease, HTN, HLD, GERD, Anemia, prior SBO a few months ago, and Asthma, presented from [facility] with abdominal pain, nausea, vomiting, urinary frequency/dysuria. Patient had a positive UA at admission but urine culture and was treated for 5 days on Rocephin. Patient had a CT of A/P at admission which s howed small bowel obstruction. Patient had an NG tube placed for decompression and was NPO with IVF for hydration. Patient was consulted by the surgery team who opted for medical management for the small bowel obstruction. Patient responded to the treatment without any surgical intervention being needed. Repeat CT A/P showed marked improvement of the small bowel obstruction. Patient was transitioned to a clear fluid diet and the patient tolerated well so she was subsquently transitioned to a puree diet as per surgery recommendations for 1 more week. Patient was discharged to [facility] on a puree diet. Date of Admission:10/30/19 10/30/19-NSR, anteroseptal infarct, T wave abnoramlity, consider lateral ischemia 10/30/19-CT A/P- Gastric and proximal small bowel distention suspicious for a partial SBO which is somewhat improved upon nasogastric tube placement. 10/30/19-CXR- 2 views of the chest reveal clear lungs, normal mediastinum and NG tube with tip below GE junction. The soft tissues are intact. There are some arthritic changes. 10/31/1929-KWK-Htutnzjgey: Findings suggestive of partial small bowel obstruction. 11/01/19-Markedly improved small bowel obstruction since 10/30/2019. Date of Discharge: 11/04/19 Minutes to complete discharge: 36 Discharge Summary Problems reviewed: Yes Reason For Visit: SMALL BOWEL OBSTRUCTION Current Active Problems Generalized abdominal pain (Acute) Ileus, unspecified (Acute) Nausea & vomiting (Acute) SBO (small bowel obstruction) (Acute) SBO (small bowel obstruction) (Acute) Condition: Stable - Instructions Diet, Activity, Other Instructions: Your visit: You were admitted to the hospital for abdominal pain with nausea and vomiting. You were found to have a small bowel obstruction. You were treated with bowel rest and fluids with improvement of your symptoms. You also had a UTI which was treated with antibiotics. Additional Imaging Findings: -During your visit we did an EKG of your heart which showed some abnormalities. -During your visit we did a CT scan of your abdomen and pelvis which showed a fatty liver. -During your visit we did a CT scan of your abdomen and pelvis which showed diverticulosis which is an outpouching of your colon wall. -During your visit we did an X-Ray of your chest which shows some arthritic changes. Medications changes: -Continue to take all other home medications as prescribed. Follow up: - Please follow-up with your general surgeon, Dr. Gabriel, in 1 week. -Please follow-up with your Sugar Chipper Machine Operator, Dr. Diez, in 2 weeks. - Visit with your Primary Care Provider, Dr. Maldonado, in 2 weeks. Additional Instructions: -You are being discharged to your assisted living center. -Eat only a pureed diet until November 09 2019. You may then slowly advance your diet to more solid foods, as tolerated. -Please return to the Emergency Department if you experience worsening pain, fevers, chills, shortness of breath, or chest pain, or if you experience any worsening, new or concerning symptoms. Referrals: Jaswinder Maldonado [Primary Care Provider] - 2 Weeks Rosalio Diez DO [Staff Physician] - 2 Weeks Diallo Gabriel MD [Staff Physician] - 1 Week Disposition: RESIDENTIAL FACILITY - Home Medications Comprehensive Discharge Medication List: Ambulatory Orders Alendronate Sodium [Fosamax] 1 tab PO WEEKLY 10/30/19 Amlodipine Besylate 5 mg PO DAILY 10/30/19 Aripiprazole 5 mg PO DAILY 10/30/19 Aspirin [Aspirin EC] 81 mg PO DAILY 10/30/19 Clopidogrel Bisulfate [Clopidogrel] 75 mg PO DAILY 10/30/19 Cyclobenzaprine HCl 10 mg PO Q8H 10/30/19 Diclofenac Potassium 50 mg PO DAILY 10/30/19 Ferrous Sulfate [Feosol] 325 mg PO DAILY 10/30/19 Fluticasone Prop 0.05% Nasal [Flonase -] 1 spray IN BID PRN 10/30/19 Levothyroxine [Synthroid -] 25 mcg PO DAILY 10/30/19 Montelukast Na [Singulair -] 10 mg PO DAILY 10/30/19 Pravastatin Sodium [Pravachol -] 80 mg PO DAILY 10/30/19 Risperidone 1 mg PO BID 10/30/19 Solifenacin Succinate [Vesicare -] 10 mg PO DAILY 10/30/19 Acetaminophen 650 mg PO BID 10/31/19 Albuterol 2.5/Ipratropium 0.5 [Duoneb -] 1 neb NEB Q6H PRN 10/31/19 Albuterol Sulfate [Albuterol Sulfate Hfa] 8.5 gm IH Q6H PRN 10/31/19 Famotidine 40 mg PO HS 10/31/19 Fluticasone/Vilanterol [Breo Ellipta 200-25 Mcg INH] 1 each IH DAILY 10/31/19 Polyethylene Glycol 3350 17 gm PO DAILY 10/31/19 Sennosides [Senna] 8.6 mg PO BID 10/31/19 Simethicone [Gas Relief] 80 mg PO Q6D 10/31/19 This patient is new to me today: No Emergency Visit: No Critical Care patient: No - Discharge Referral Referred to [facility] No ATTENDING PHYSICIAN STATEMENT I saw and evaluated the patient. I reviewed the resident's note and discussed the case with the resident. I agree with the resident's findings and plan as documented. SUBJECTIVE: OBJECTIVE: ASSESSMENT AND PLAN:
--- NOTE | 2019-11-04 14:07 | PN ---
Teaching Attending Note Name of Resident: Morris Culp ATTENDING PHYSICIAN STATEMENT I saw and evaluated the patient. I reviewed the resident's note and discussed the case with the resident. I agree with the resident's findings and plan as documented. SUBJECTIVE: Abdominal pain improving. Tolerating clear liquid diet, without nausea/vomiting. Passing BM x 1, gas. OBJECTIVE: Afebrile, Hemodynamically Stable. Last Vital Signs Temp Pulse Resp BP Pulse Ox 98.5 F 80 18 134/64 95 11/04/19 09:20 11/04/19 09:20 11/04/19 09:20 11/04/19 09:20 11/04/19 09:20 HEENT - Atraumatic. NGT removed. Heart - S1, S2, RRR Lungs - clear to auscultation Abdomen - Soft, mild generalized tenderness improved. Bloating improved. Bowel Sounds normal. Extremities - trace edema, no calf tenderness. Laboratory Results - last 24 hr 11/03/19 11/03/19 11/04/19 16:58 21:03 05:43 WBC RBC Hgb Hct MCV MCH MCHC RDW Plt Count MPV Absolute Neuts (auto) Neutrophils % Neutrophils % (Manual) Band Neutrophils % Lymphocytes % Lymphocytes % (Manual) Monocytes % Monocytes % (Manual) Eosinophils % Eosinophils % (Manual) Basophils % Basophils % (Manual) Myelocytes % (Man) Promyelocytes % (Man) Blast Cells % (Manual) Nucleated RBC % Metamyelocytes Hypochromia Platelet Estimate Polychromasia Poikilocytosis Anisocytosis Microcytosis Macrocytosis Sodium Potassium Chloride Carbon Dioxide Anion Gap BUN Creatinine Est GFR (CKD-EPI)AfAm Est GFR (CKD-EPI)NonAf POC Glucometer 118 137 133 Random Glucose Calcium 11/04/19 11/04/19 11/04/19 06:52 06:52 11:26 WBC 7.6 RBC 4.28 Hgb 13.0 Hct 39.1 MCV 91.4 MCH 30.4 MCHC 33.2 RDW 14.2 Plt Count 246 MPV 7.6 Absolute Neuts (auto) 5.3 Neutrophils % 69.4 Neutrophils % (Manual) 61.2 Band Neutrophils % 1.0 Lymphocytes % 18.7 Lymphocytes % (Manual) 25.5 D Monocytes % 8.0 Monocytes % (Manual) 6 D Eosinophils % 3.1 Eosinophils % (Manual) 2.1 D Basophils % 0.8 Basophils % (Manual) 1.0 D Myelocytes % (Man) 1 D Promyelocytes % (Man) 0 Blast Cells % (Manual) 0 Nucleated RBC % 0 Metamyelocytes 0 Hypochromia 0 Platelet Estimate Normal Polychromasia 0 Poikilocytosis 0 Anisocytosis 1+ Microcytosis 1+ Macrocytosis 0 Sodium 140 Potassium 4.0 Chloride 108 H Carbon Dioxide 22 Anion Gap 10 BUN 7.4 Creatinine 0.7 Est GFR (CKD-EPI)AfAm 99.62 Est GFR (CKD-EPI)NonAf 85.95 POC Glucometer 107 Random Glucose 148 H Calcium 8.7 Current Medications Generic Name Dose Route Start Last Admin Trade Name Freq PRN Reason Stop Dose Admin Acetaminophen 650 mg 11/01/19 16:07 11/03/19 13:41 Tylenol - PO 650 mg Q6H PRN Administration Fever Or Pain 6-10 Albuterol/Ipratropium 1 amp 10/31/19 13:46 Duoneb - NEB Q4H PRN SHORTNESS OF BREATH Amlodipine Besylate 5 mg 10/31/19 14:00 11/04/19 09:09 Norvasc - PO 5 mg DAILY NITESH Administration Aripiprazole 5 mg 11/03/19 16:15 11/04/19 09:09 Abilify PO 5 mg DAILY NITESH Administration Clopidogrel Bisulfate 75 mg 11/03/19 16:15 11/04/19 09:10 Plavix - PO 75 mg DAILY NITESH Administration Cyclobenzaprine HCl 10 mg 11/03/19 15:30 11/04/19 05:23 Cyclobenzaprine Hcl PO 10 mg TID NITESH Administration Enoxaparin Sodium 40 mg 10/31/19 10:00 11/04/19 09:09 Lovenox - SQ 40 mg DAILY NITESH Administration Famotidine 20 mg 10/31/19 22:00 11/03/19 21:06 Pepcid - PO 20 mg HS NITESH Administration Fluticasone Propionate 1 spray 11/03/19 22:00 11/04/19 11:24 Flonase - NS 1 spray BID NITESH Administration Ceftriaxone Sodium 1 gm/ 50 mls @ 100 mls/hr 10/31/19 10:00 11/04/19 09:09 Dextrose IVPB 100 mls/hr DAILY NITESH Administration Protocol Potassium Chloride/Sodium Chloride 20 meq in 1,000 mls @ 75 mls/hr 11/03/19 15:55 11/03/19 16:53 1/2ns+20meq Kcl IV 75 mls/hr ASDIR NITESH Administration Insulin Aspart 1 vial 10/30/19 22:00 11/04/19 11:27 Novolog Vial Sliding Scale - SQ Not Given ACHS NITESH Protocol Levothyroxine Sodium 20 mcg 10/31/19 10:00 11/04/19 09:10 Synthroid Injection - IVPUSH 20 mcg DAILY NITESH Administration Montelukast Sodium 10 mg 10/31/19 22:00 11/03/19 21:06 Singulair - PO 10 mg HS NITESH Administration Ondansetron HCl 4 mg 10/30/19 21:29 Zofran Injection IVPUSH Q8H PRN NAUSEA Risperidone 1 mg 11/01/19 10:00 11/04/19 09:10 Risperdal - PO 1 mg DAILY NITESH Administration Solifenacin 10 mg 11/03/19 16:15 11/04/19 09:10 Vesicare - PO 10 mg DAILY NITESH Administration Home Medications Medication Instructions Recorded Alendronate Sodium [Fosamax] 1 tab PO WEEKLY 10/30/19 Amlodipine Besylate 5 mg PO DAILY 10/30/19 Aripiprazole 5 mg PO DAILY 10/30/19 Aspirin [Aspirin EC] 81 mg PO DAILY 10/30/19 Clopidogrel Bisulfate [Clopidogrel] 75 mg PO DAILY 10/30/19 Cyclobenzaprine HCl 10 mg PO Q8H 10/30/19 Diclofenac Potassium 50 mg PO DAILY 10/30/19 Ferrous Sulfate [Feosol] 325 mg PO DAILY 10/30/19 Fluticasone Prop 0.05% Nasal 1 spray IN BID PRN 10/30/19 [Flonase -] Levothyroxine [Synthroid -] 25 mcg PO DAILY 10/30/19 Montelukast Na [Singulair -] 10 mg PO DAILY 10/30/19 Pravastatin Sodium [Pravachol -] 80 mg PO DAILY 10/30/19 Risperidone 1 mg PO BID 10/30/19 Solifenacin Succinate [Vesicare -] 10 mg PO DAILY 10/30/19 Acetaminophen 650 mg PO BID 10/31/19 Albuterol 2.5/Ipratropium 0.5 1 neb NEB Q6H PRN 10/31/19 [Duoneb -] Albuterol Sulfate [Albuterol 8.5 gm IH Q6H PRN 10/31/19 Sulfate Hfa] Famotidine 40 mg PO HS 10/31/19 Fluticasone/Vilanterol [Breo 1 each IH DAILY 10/31/19 Ellipta 200-25 Mcg INH] Polyethylene Glycol 3350 17 gm PO DAILY 10/31/19 Sennosides [Senna] 8.6 mg PO BID 10/31/19 Simethicone [Gas Relief] 80 mg PO Q6D 10/31/19 ASSESSMENT AND PLAN: 74 year old female resident of [facility] with history of Schizophrenia, Seizure Disorder (last seizure remote, not on Meds), COPD, DM 2, Parkinson's Disease, HTN, HLD, GERD, Anemia, prior SBO a few months ago, and Asthma, presents from [facility] with abdominal pain, nausea, vomiting, urinary frequency/dysuria. 1. Acute SBO, recurrent CT A/P - proximal bowel distention, improved with NGT placement Repeat CT A/P with contrast via NG tube shows marked improvement in SBO from 10/29 but she has ongoing symptoms and high output from NGT s/p NGT removal, initiation of oral clear liquid diet - tolerating well. Team discussed with surgery - recommend discharge on pureed diet for another week. GI, Surgery to follow on discharge. 2. UA suggestive of UTI Urine Cx contaminated Empiric Ceftraixone - Day 5, will discontinue. 3. DM 2 - A1C 6.4, not on DM meds at home. PCP follow up. 4. Schizophrenia - Risperidone, Aripiprazole to continue 5. Hypothyroidism - continue Levothyroxine. 6. Parkinson's Disease - on Cyclobenzaprine chronically. 7. HTN - Continue Norvasc 8. Asthma/COPD - stable. On Breo ellipta, Albuterol, Montelukast chronically 9. Overactive Bladder - continue Vesicare. 10. HLD - continue Statin. Medically optimized for discharge with surgery follow up.
[2019-11-04 20:49] VITALS: BP 134/67; PULSE 92; TEMP 98.3
== END 2019-11-04 20:54 | DRG 389 ==
LOC: JER 13:40 → JERBED 18:34 → J8W 23:33 → J7W 10-31 23:53
PROVIDERS: ADMIT Internal Medicine
PROC: 0D9670Z Drainage of Stomach with Drainage Device, Via Natural or Artificial Opening (ICD-10-PCS; principal; 2019-10-30)
DX: K56.609 Unspecified intestinal obstruction, unspecified as to partial versus complete obstruction (principal); N39.0 Urinary tract infection, site not specified; G20 Parkinson's disease; I10 Essential (primary) hypertension; E78.5 Hyperlipidemia, unspecified; E03.9 Hypothyroidism, unspecified; G40.909 Epilepsy, unspecified, not intractable, without status epilepticus; J44.9 Chronic obstructive pulmonary disease, unspecified; K21.9 Gastro-esophageal reflux disease without esophagitis; D64.9 Anemia, unspecified; Z88.0 Allergy status to penicillin; F31.9 Bipolar disorder, unspecified; K56.7 Ileus, unspecified; F20.9 Schizophrenia, unspecified; N32.81 Overactive bladder
CPT/HCPCS: 36415; 71045-TC-FY; 74018-TC-FY; 74176-TC; 74177-TC; 80048; 80053; 80076; 81003; 82150; 82550; 82962; 83605; 83690; 83735; 84100; 84443; 84484; 85025; 87086; 93005; 93010; 97116-GP; 97161-GP; 99285-25; J0131; J2794; J3480; Q9967; U0003

== ENCOUNTER 2019-11-30 12:45 | Emergency (ER) | payer OTHER ==
--- OUTSIDE RECORDS SUMMARY | 2019-11-30 13:00 | XMS ---
:1945 Author Organization [facility] Care Team Providers Name Role Phone [facility], [facility]9 Unavailable Unavailable Re-disclosure Warning The records [...] is protected by Article 27-F of the [facility] Public Health law. If you continue you may haveaccess to information: Regarding HIV / AIDS; Provided by facilities licensed or operated by the [facility] Office of Mental Health; or Provided by the [facility] Office for People With Developmental Disabilities. If such information is present, then the following [facility] mandated warning applies: This information has [...] law may result in a fine or intermediate sentence or both. A general authorization for the release of medical or other information is NOT sufficient authorization for further disclosure. Encounters Encounter Providers Location Date Indications Data Source(s ) Outpatient Attender: [id number] 11/14/2019 [facility] Patient admitted. Outpatient Attender: [id number] [facility] 09/10/2019 11:21:18 AM [facility] ([facility]) Patient admitted. Outpatient Attender: [id number] [facility] 03/29/2019 11:49:34 AM [facility] ([facility]) Patient admitted. Outpatient Attender: [id number] [facility] 11/19/2018 03:42:00 PM [facility] ([facility]) Patient admitted. Insurance Providers Payer name Policy type Policy ID Covered Covered green party's Policy P delia / Coverage green party ID relationship to [employer] Inf ormation type zayas MEDICARE [id number] SP [id number] 05 5 MEDICAID [id number] SP [id number] MEDICARE [id number] SP [id number] 05 5 Results ID Date Data Source [id number] 10/30/2019 11:10:00 PM EDT [facility] Name Value Range Interpretation Description Data Sup porting Code Source(s) Document(s ) SARS [facility] coronavirus 2 RNA This lab was ordered by [facility] and reported by [facility]. ID Date Data Source [id number] 09/09/2019 09:14:00 PM EDT [facility] Name Value Range Interpretation Description Data Sup porting Code Source(s) Document(s ) SARS [facility] coronavirus 2 RNA This lab was ordered by [facility] and reported by [facility]. ID Date Data Source [id number] 06/25/2019 05:00:00 PM EDT [facility] Name Value Range Interpretation Description Data Sup porting Code Source(s) Document(s ) SARS [facility] CORONAVIRUS 2 RNA This lab was ordered by [facility] and reported by [facility]. ID Date Data Source [id number] 06/16/2019 12:32:00 AM EDT [facility] Name Value Range Interpretation Description Data Sup porting Code Source(s) Document(s ) SARS [facility] CORONAVIRUS 2 RNA This lab was ordered by [facility] and reported by [facility]. Procedure
[2019-11-30 13:03] VITALS: BP 132/58; PULSE 82; TEMP 98.2; BMI 30.5
--- NOTE | 2019-11-30 13:06 | PDOC ---
History of Present Illness - General Chief Complaint: Pain Stated Complaint: ABD PAIN Time Seen by Provider: 11/30/19 13:05 History Source: Patient Exam Limitations: No Limitations - History of Present Illness Initial Comments: 11/30/19 13:05 PCP: Joel HPI: 74yo F pmh HTN, HLD, COPD, asthma, anemia, hypothyroidism, GERD, seizure disorder, Parkinson's, BIBEMS today from [facility] for abdominal distention "for a CT." Reports diffuse abdominal pain that is sharp, non- radiating, and constant "for a long time" and has recurred since her previous visit. Reports her discomfort is the same as previous visits. Vomiting x1 yesterday without blood or bile, 3x diarrhea yesterday. Reports emesis or diarrhea with any PO intake, has not attempted food since yesterday. Seen here twice in the past 3 months with similar presentations, medically managed illeus / SBO 1 month ago. Found to have UTI at that time, treated with Rocephin, again with dysuria today. Last colonoscopy >10 years on chart review. Denies fevers, chills, nausea at present, blood in stool or emesis, weight loss. Denies chest pain or pressure but does report burning epigastirc pain c/w prior GERD, shortn ess of breath, edema, BERRY. Denies cough, headache, dizziness, lightheadedness. No leg pain or back pain. Meds: Per chart All: Morphine - swelling, PCN - hives PMH: As above PSH: Denies any abdominal surgeries. Prior SBO medically managed. SHx: Denies etoh, smoking, ilicits Past History - Travel History Traveled outside of the country in the last 30 days: No Close contact w/someone who was outside of country & ill: No - Medical History Allergies/Adverse Reactions: Allergies Allergy/AdvReac Type Severity Reaction Status Date / Time morphine Allergy Unknown Verified 11/30/19 13:03 Penicillins Allergy Unknown Verified 11/30/19 13:03 strawberry Allergy Unknown Verified 11/30/19 13:03 chocolate Allergy Unknown Uncoded 11/30/19 13:03 Home Medications: Ambulatory Orders Alendronate Sodium [Fosamax] 1 tab PO WEEKLY 10/30/19 Amlodipine Besylate 5 mg PO DAILY 10/30/19 Aripiprazole 5 mg PO DAILY 10/30/19 Aspirin [Aspirin EC] 81 mg PO DAILY 10/30/19 Clopidogrel Bisulfate [Clopidogrel] 75 mg PO DAILY 10/30/19 Cyclobenzaprine HCl 10 mg PO Q8H 10/30/19 Diclofenac Potassium 50 mg PO DAILY 10/30/19 Ferrous Sulfate [Feosol] 325 mg PO DAILY 10/30/19 Fluticasone Prop 0.05% Nasal [Flonase -] 1 spray IN BID PRN 10/30/19 Levothyroxine [Synthroid -] 25 mcg PO DAILY 10/30/19 Montelukast Na [Singulair -] 10 mg PO DAILY 10/30/19 Pravastatin Sodium [Pravachol -] 80 mg PO DAILY 10/30/19 Risperidone 1 mg PO BID 10/30/19 Solifenacin Succinate [Vesicare -] 10 mg PO DAILY 10/30/19 Acetaminophen 650 mg PO BID 10/31/19 Albuterol 2.5/Ipratropium 0.5 [Duoneb -] 1 neb NEB Q6H PRN 10/31/19 Albuterol Sulfate [Albuterol Sulfate Hfa] 8.5 gm IH Q6H PRN 10/31/19 Famotidine 40 mg PO HS 10/31/19 Fluticasone/Vilanterol [Breo Ellipta 200-25 Mcg INH] 1 each IH DAILY 10/31/19 Polyethylene Glycol 3350 17 gm PO DAILY 10/31/19 Sennosides [Senna] 8.6 mg PO BID 10/31/19 Simethicone [Gas Relief] 80 mg PO Q6D 10/31/19 Cephalexin [Keflex] 500 mg PO BID 7 Days #14 capsule 11/30/19 Anemia: Yes Asthma: Yes Cancer: No Cardiac Disorders: (hx of chest pain) CVA: No COPD: Yes (PT STATED , HOME O2) CHF: No DVT: No Dementia: No Diabetes: No GI Disorders: Yes (GERD) Disorders: Yes (incontinence) HTN: Yes Hypercholesterolemia: Yes Liver Disease: No Psychiatric Problems: Yes (BiPolar) Seizures: Yes Thyroid Disease: Yes (HYPO.) - Surgical History Abdominal Surgery: No Appendectomy: No Cardiac Surgery: No Cholecystectomy: No Lung Surgery: No Neurologic Surgery: No Orthopedic Surgery: No - Reproductive History Is Patient Now?: No - Immunization History Td Vaccination: (unknown) Immunization Up to Date: No - Psycho-Social/Smoking History Smoking Status: No Smoking History: Never smoked Years of Tobacco Use: 0 Have you smoked in the past 12 months: No Number of Cigarettes Smoked Daily: 0 Cigars Per Day: 0 Information on smoking cessation initiated: No - Substance Abuse Hx (Audit-C & DAST Scrn) How often the patient has a drink containing alcohol: Never Score: In Men: 4 or > Positive; In Women: 3 or > Positive: 0 Screen Result (Pos requires Nsg. Audit-10AR): Negative In the last yr the pt used illegal drug/Rx for NonMed reason: No Score: Yes response is considered Positive: 0 Screen Result (Positive result requires Nsg. DAST-10): Negative Review of Systems - Review of Systems Able to Perform ROS?: Yes Is the patient limited Turkmen proficient: Yes Constitutional: No: Chills, Fever, Night Sweats, Unintentional Wgt. Loss HEENTM: No: Nose Congestion, Throat Pain Respiratory: No: Cough, Shortness of Breath, Wheezing, Productive cough Cardiac (ROS): No: Chest Pain, Edema, Lightheadedness, Palpitations, Syncope, Chest Tightness ABD/GI: Yes: See HPI, Abdominal Distended, Diarrhea, Poor Appetite, Poor Fluid Intake, Vomiting. No: Blood Streaked Bowels, Constipated, Nausea, Rectal Bleeding, Tarry Stools : Yes: Dysuria, Frequency. No: Burning, Discharge Musculoskeletal: No: Back Pain, Muscle Pain, Muscle Weakness Integumentary: No: Bruising, Pruritus, Rash Neurological: No: Headache, Numbness, Tingling, Weakness Psychiatric: No: Anxiety, Depression, Change in Appetite Endocrine: No: Unexplained Weight Gain, Unexplained Weight Loss Hematologic/Lymphatic: No: Anemia, Blood Clots, Easy Bleeding All Other Systems: Reviewed and Negative *Physical Exam - Vital Signs Last Vital Signs Temp Pulse Resp BP Pulse Ox 98.2 F 82 18 132/58 L 97 11/30/19 13:01 11/30/19 13:01 11/30/19 13:01 11/30/19 13:01 11/30/19 13:01 - Physical Exam 11/30/19 13:40 Vitals reviewed, AFVSS GEN: Well appearing, appears stated age, NAD, comfortable. AAOx3. HEENT: NCAT, EOMI, PERRL. Sclera anicteric, non-injected. No facial asymmetry. Moist mucous membranes. Normal voice. Trachea midline. CV: RRR, S1/S2, no murmurs / rubs / gallops appreciated. LUNG: Reduced lung sounds at right base, normal work of breathing. No wheezes, rales, rhonchi. No cough. Speaking full sentences. GI: Soft, obese, mildly distended, diffusely tender to palpation, +BS, no guarding, no rebound, negative Robb's. No masses. EXTREMITIES: 2+ distal pulses. No clubbing / cyanosis / edema. No gross defor mity in any extremity. SKIN: Warm, dry, no rashes appreciated, non-jaundiced. PSYCH: Normal mood and affect. Cooperative and appropriate. NEURO: CN grossly intact. Moving all extremities well. Normal strength and sensation grossly. Medical Decision Making - Medical Decision Making 11/30/19 13:34 74yo F pmh HTN, HLD, COPD, asthma, anemia, hypothyroidism, GERD, seizure disorder, Parkinson's, BIBEMS today from [facility] for abdominal distention "for a CT." History notable for vomiting, diarrhea, distention over past months with several periods of improvement with hospitalization, no fevers, poor PO intake. Exam notable for diffusely tender abdomen, stable vitals without fever, well appearing. Together concerning for recurrence of illeus / SBO, also for diverticulitis, pancreatitis, UTI / pyelonephritis, IBS if all others excluded, malignancy remains on the DDX given no recent colonoscopy however no masses noted on prior CT exams, unlikely ischemic bowl given exam and history, no surgical history makes adhesion related obstruction less likely. - CBC, CMP, Lipase, Lactate - UA, UCx - EKG, CXR, Flat&Upright - Plan for CTAP - Acetaminophen - NS 1L 11/30/19 16:44 - Labs notable for slight leukocytosis - CT improved since prior with no sign of acute pathology / SBO - UA with bacteria, trace leuk esterase, patient with dysuria will treat with keflex - Pain improved with Tylenol, non-tender abdomen, remains non-nauseous Dispo: Home Discharge - Discharge Information Problems reviewed: Yes Clinical Impression/Diagnosis: Abdominal distention, Abdominal pain in female Urinary tract infection Qualifiers: Urinary tract infection type: acute cystitis Hematuria presence: without hematuria Qualified Code(s): N30.00 - Acute cystitis without hematuria Condition: Stable Disposition: HOME - Admission No - Follow up/Referral Referrals: Jaswinder Maldonado [Primary Care Provider] - - Patient Discharge Instructions Patient Printed Discharge Instructions: DI for Urinary Tract Infection (UTI) Additional Instructions: You were seen and evaluated for abdominal pain. Your cat scan demonstrated improvement from prior without evidence of obstruction or other emergent findings. Your discomfort is likely related to a urinary tract infection diagnosed today. Please continue your home medications as directed. Antibiotics were sent to your pharmacy, please pick these up and take them as directed for the full 7 day course. Follow up with your primary care doctor in the next 2-3 days for continued care and re-evaluation. Return to the ED for any new or concerning findings including inability to drink water or take your medications, worsening abdominal pain, inability to defecate or pass flatus. - Post Discharge Activity
[2019-11-30] MEDS ORDERED: ACETAMINOPHEN 1000 MG/100 ML VIAL (NON FORMULARY) IVPB ONE (13:22)
[2019-11-30] MEDS ORDERED: SODIUM CHLORIDE 1,000 ML IV STA (13:22)
[2019-11-30] MEDS ORDERED: ACETAMINOPHEN INJECTION 100 ML IVPB ONE (13:31)
[2019-11-30 13:40] LABS: BASO % 0.7 % (0-2.0); EOS % 5.2 % (0-4.5); HEMATOCRIT 39.7 % (32.4-45.2); HEMOGLOBIN 13.1 GM/dL (10.7-15.3); LYMPH % 19.1 % (8-40); MCH 30.1 pg (25.7-33.7); MEAN CELL VOLUME 91.4 fl (80-96); MEAN PLT VOLUME 8.1 fl (7.5-11.1); MONO % 6.4 % (3.8-10.2); NEUT % 68.6 % (42.8-82.8); PLATELET COUNT 251 K/MM3 (134-434); RBC 4.34 M/mm3 (3.60-5.2); RDW 14.3 % (11.6-15.6); WHITE BLOOD COUNT 10.5 K/mm3 (4.0-10.0)
--- NOTE | 2019-11-30 13:48 | PDOC ---
Documentation entered by All Echols SCRIBE, acting as scribe for Miladis Rodgers MD. Miladis Rodgers MD: This documentation has been prepared by the scribe, All Echols SCRIBE, under my direction and personally reviewed by me in its entirety. I confirm that the documentation accurately reflects all work, treatment, procedures, and medical decision making performed by me. Attending Attestation - Resident Resident Name: JoshEdgar - ED Attending Attestation I have performed the following: I have examined & evaluated the patient, The case was reviewed & discussed with the resident, I agree w/resident's findings & plan, Exceptions are as noted - HPI HPI: 11/30/19 13:44 The patient is a 74 year old female with a significant past medical history of seizure disorder, Parkinson's Disease, COPD, asthma, hypothyroidism, GERD, and anemia, HTN, and HLD who presents to the emergency department, [facility] from [facility], for a CT for evaluation of intermittent abdominal distension that began months ago. The patient reports diffuse, constant, sharp, abdominal pain "for a long time", syduria, and epigastric pain which is typical of her GERD presentation. She endorses not eating anything since yesterday secondary to one episode of NBNB vomiting and three episodes of diarrhea yesterday. The patient presented to the ED for a medically managed ileus small bowel obstruction and a UTI one month ago. Patient also reports dysuria. The patient denies chest/back pain, cough, and shortness of breath, fever, chills. Denies any other symptoms. Allergies: morphine, penicillins, strawberry, chocolate Social Hx: None reported Surgical Hx: None reported PCP: Jaswinder Maldonado - Physicial Exam PE: 11/30/19 13:47 General: well appearing HEENT: NCAT Abdomen: obese limiting exam, soft, mild suprapubic ttp, no rebound, no guarding - Medical Decision Making 11/30/19 13:47 74 yo F with intermittent abd pain and distension, also with dysuria possible UTI vs. SBO vs. diverticulitis vs. enteritis vs. colitis. Plan: -labs -urine -pain control as needed -CT a/p -reassess This clinical encounter is taking place during a [facility] emergency attributable to the novel [place] Virus pandemic. The [place] of the Department of Health and Human Services has declared, pursuant to the Public Health Service Act 319F-3 (42 U.S.C. 247d-6d), that a covered persons activities related to medical countermeasures against COVID-19 will be immune from liability under Federal and State law. 11/30/19 16:41 Labs and imaging reviewed. Will treat for UTI and d/c back to residence with return precautions, recommend PMD f/u. Discharge - Discharge Information Problems reviewed: Yes Clinical Impression/Diagnosis: Abdominal distention, Abdominal pain in female Condition: Guarded - Follow up/Referral Referrals: Jaswinder Maldonado [Primary Care Provider] - - Patient Discharge Instructions - Post Discharge Activity
[2019-11-30 13:50] LABS: INR 1.09 (0.83-1.09); PROTHROMBIN TIME (PATIENT) 13.1 SEC (9.7-13.0)
[2019-11-30 13:58] LABS: POTASSIUM 3.9 mmol/L (3.5-5.1)
[2019-11-30 14:00] LABS: BLOOD UREA NITROGEN 12.6 mg/dL (7-18); CALCIUM 8.7 mg/dL (8.5-10.1)
[2019-11-30 14:01] LABS: ALBUMIN 3.2 g/dl (3.4-5.0); MAGNESIUM 1.9 mg/dL (1.8-2.4)
[2019-11-30 14:04] LABS: CREATININE 0.7 mg/dL (0.55-1.3)
[2019-11-30 14:05] LABS: BILIRUBIN,TOTAL 0.3 mg/dL (0.2-1); TOT PROT 5.7 g/dl (6.4-8.2)
[2019-11-30 15:58] LABS: EPI CELLS 4 /uL (0-25.1); HYALINE CASTS 0 /uL (0-3.1); URINE APPEARANCE CLEAR; URINE BACTERIA 48 /uL (0-1359); URINE BILIRUBIN NEGATIVE (NEGATIVE); URINE COLOR YELLOW; URINE GLUCOSE (UA) NEGATIVE (NEGATIVE); URINE KETONE NEGATIVE (NEGATIVE); URINE LEUK ESTERASE TRACE (NEGATIVE); URINE NITRITE NEGATIVE (NEGATIVE); URINE PROTEIN NEGATIVE (NEGATIVE); URINE RBC 29 /uL (0-23.9); URINE WBC 20 /uL (0-25.8)
[2019-11-30] MEDS ORDERED: CEPHALEXIN MONOHYDRATE 500 MG CAPSULE (UD) PO ONE (16:44)
[2019-11-30] MEDS ORDERED: CEPHALEXIN MONOHYDRATE 250 MG CAPSULE (FP) ONE (16:59)
--- NOTE | 2019-12-01 10:36 | EKG ---
Test Reason : Blood Pressure : / mmHG Vent. Rate : 080 BPM Atrial Rate : 080 BPM P-R Int : 186 ms QRS Dur : 086 ms QT Int : 430 ms P-R-T Axes : 059 026 109 degrees QTc Int : 495 ms SINUS RHYTHM WITH PREMATURE ATRIAL COMPLEXES LOW VOLTAGE QRS ANTEROSEPTAL INFARCT ABNORMAL ECG Confirmed by MD MARY, LUISA ([id number]) on 12/01/2019 10:36:27 AM Referred By: Confirmed By:LUISA HERNANDEZ MD
== END 2019-11-30 19:31 | disposition home or self-care (01) ==
LOC: JER 12:45
PROC: 3E033NZ Introduction of Analgesics, Hypnotics, Sedatives into Peripheral Vein, Percutaneous Approach (ICD-10-PCS; principal; 2019-11-30)
PROC: 3E0337Z Introduction of Electrolytic and Water Balance Substance into Peripheral Vein, Percutaneous Approach (ICD-10-PCS; 2019-11-30)
DX: R14.0 Abdominal distension (gaseous) (principal); N30.00 Acute cystitis without hematuria
CPT/HCPCS: 36415; 71045-TC-FY; 74019-TC-FY; 74177-TC; 80053; 81003; 83605; 83735; 85025; 85610; 85730; 87086; 93005; 93010; 99285-25; J0131; Q9967

== ENCOUNTER 2020-02-29 10:15 | Emergency (ER) | payer OTHER ==
[2020-02-29 10:38] VITALS: BMI 33.6
[2020-02-29] MEDS ORDERED: FAMOTIDINE 20 MG/50 ML IVPB 20 MG/50 ML MG IVPB ONE ×2 (11:17→11:46)
[2020-02-29 12:24] LABS: BASO % 0.7 % (0-2.0); EOS % 1.4 % (0-4.5); HEMATOCRIT 37.1 % (32.4-45.2); HEMOGLOBIN 12.6 GM/dL (10.7-15.3); LYMPH % 7.8 % (8-40); MCH 31.5 pg (25.7-33.7); MCHC 33.9 g/dl (32.0-36.0); MEAN CELL VOLUME 92.9 fl (80-96); MEAN PLT VOLUME 9.1 fl (7.5-11.1); MONO % 7.8 % (3.8-10.2); NEUT % 82.3 % (42.8-82.8); PLATELET COUNT 200 K/MM3 (134-434); RBC 3.99 M/mm3 (3.60-5.2); WHITE BLOOD COUNT 8.2 K/mm3 (4.0-10.0)
[2020-02-29 12:49] LABS: CHLORIDE 113 mmol/L (98-107); POTASSIUM 5.1 mmol/L (3.5-5.1); SODIUM 143 mmol/L (136-145)
[2020-02-29 12:51] LABS: CALCIUM 9.4 mg/dL (8.5-10.1)
[2020-02-29 12:52] LABS: ALBUMIN 3.6 g/dl (3.4-5.0); ANION GAP 7 MMOL/L (8-16); BLOOD UREA NITROGEN 12.3 mg/dL (7-18); CO2 23 mmol/L (21-32); GLUCOSE,RANDOM 86 mg/dL (74-106)
[2020-02-29 12:55] LABS: CREATININE 0.7 mg/dL (0.55-1.3); SGOT/AST 22 U/L (15-37); SGPT/ALT 16 U/L (13-61)
[2020-02-29 12:56] LABS: BILIRUBIN,TOTAL 0.4 mg/dL (0.2-1)
[2020-02-29 12:57] LABS: TOT PROT 5.8 g/dl (6.4-8.2)
[2020-02-29 12:58] LABS: ALK PHOS 68 U/L (45-117)
[2020-02-29] MEDS ORDERED: IBUPROFEN 400 MG TABLET (FP) PO ONE ×2 (14:17→14:39)
[2020-02-29 15:25] LABS: LIPASE 27 U/L (73-393)
[2020-02-29 17:36] VITALS: BP 129/64; PULSE 50; TEMP 97.3
== END 2020-02-29 17:56 | disposition home or self-care (01) ==
LOC: JER 10:15
PROC: 3E033GC Introduction of Other Therapeutic Substance into Peripheral Vein, Percutaneous Approach (ICD-10-PCS; principal; 2020-02-29)
DX: R07.89 Other chest pain (principal)
CPT/HCPCS: 36415; 71045-TC-FY; 80053; 82550; 83690; 84484; 85025; 85379; 93005; 93010; 99285-25

== ENCOUNTER 2020-03-03 15:33 | Emergency (ER) | payer OTHER ==
[2020-03-03 15:55] VITALS: BMI 24.0
[2020-03-03 17:43] LABS: BASO % 0.4 % (0-2.0); EOS % 0.7 % (0-4.5); HEMATOCRIT 40.6 % (32.4-45.2); HEMOGLOBIN 13.7 GM/dL (10.7-15.3); LYMPH % 34.3 % (8-40); MCH 31.1 pg (25.7-33.7); MCHC 33.8 g/dl (32.0-36.0); MEAN CELL VOLUME 92.3 fl (80-96); MEAN PLT VOLUME 8.2 fl (7.5-11.1); MONO % 8.6 % (3.8-10.2); PLATELET COUNT 200 K/MM3 (134-434); RBC 4.41 M/mm3 (3.60-5.2); WHITE BLOOD COUNT 4.8 K/mm3 (4.0-10.0)
[2020-03-03] MEDS ORDERED: LACTATED RINGERS SOLUTION 1000 ML INFUS.BAG IV ONE (17:45)
[2020-03-03] MEDS ORDERED: ACETAMINOPHEN 325 MG TABLET (FP) PO ONE (17:45)
[2020-03-03] MEDS ORDERED: ACETAMINOPHEN 325 MG TABLET (FP) ONE (18:00)
[2020-03-03 18:09] LABS: CHLORIDE 109 mmol/L (98-107); POTASSIUM 3.9 mmol/L (3.5-5.1); SODIUM 140 mmol/L (136-145)
[2020-03-03 18:11] LABS: ANION GAP 5 MMOL/L (8-16); CALCIUM 8.7 mg/dL (8.5-10.1); CO2 26 mmol/L (21-32); GLUCOSE,RANDOM 90 mg/dL (74-106)
[2020-03-03 18:14] LABS: CREATININE 0.9 mg/dL (0.55-1.3); SGOT/AST 17 U/L (15-37); SGPT/ALT 21 U/L (13-61)
[2020-03-03 18:16] LABS: TOT PROT 6.3 g/dl (6.4-8.2)
[2020-03-03 18:17] LABS: ALK PHOS 75 U/L (45-117)
[2020-03-03 18:19] LABS: LDH 140 U/L (84-246)
[2020-03-03 18:28] LABS: BILIRUBIN,TOTAL 0.3 mg/dL (0.2-1)
[2020-03-03] MEDS ORDERED: BAMLANIVIMAB 700 MG in SODIUM CHLORIDE 180 ML IVPB ONE (20:44)
[2020-03-03 22:00] VITALS: TEMP 98.4
[2020-03-04 03:17] VITALS: BP 108/51; PULSE 50
== END 2020-03-04 04:01 | disposition home or self-care (01) ==
LOC: JER 15:33
DX: U07.1 COVID-19 (principal)
CPT/HCPCS: 36415; 71045-TC-FY; 80053; 82550; 82728; 83605; 83615; 84484; 85025; 85379; 86140; 87804; 93005; 93010; 96374; 99285-25; C9803; M0239; Q0239; U0003

== ENCOUNTER 2020-03-09 08:40 | Inpatient (IN) | payer OTHER ==
[2020-03-09] MEDS ORDERED: ACETAMINOPHEN 1000 MG/100 ML VIAL (NON FORMULARY) IVPB ONE (09:08)
[2020-03-09] MEDS ORDERED: SODIUM CHLORIDE 500 ML IV STA (09:08)
[2020-03-09 09:09] VITALS: BMI 35.4
[2020-03-09] MEDS ORDERED: ACETAMINOPHEN INJECTION 100 ML IVPB ONE (09:30)
[2020-03-09 10:24] LABS: BASO % 0.4 % (0-2.0); EOS % 0.9 % (0-4.5); HEMATOCRIT 41.1 % (32.4-45.2); HEMOGLOBIN 13.8 GM/dL (10.7-15.3); MCH 30.9 pg (25.7-33.7); MCHC 33.5 g/dl (32.0-36.0); MEAN CELL VOLUME 92.1 fl (80-96); MEAN PLT VOLUME 8.9 fl (7.5-11.1); MONO % 6.9 % (3.8-10.2); NEUT % 77.8 % (42.8-82.8); PLATELET COUNT 244 K/MM3 (134-434); RBC 4.46 M/mm3 (3.60-5.2); RDW 14.1 % (11.6-15.6); WHITE BLOOD COUNT 5.8 K/mm3 (4.0-10.0)
[2020-03-09 10:36] LABS: INR 1.02 (0.83-1.09); PROTHROMBIN TIME (PATIENT) 12.3 SEC (9.7-13.0)
[2020-03-09 10:45] LABS: CHLORIDE 106 mmol/L (98-107); POTASSIUM 4.4 mmol/L (3.5-5.1); SODIUM 140 mmol/L (136-145)
[2020-03-09 10:48] LABS: ALBUMIN 3.8 g/dl (3.4-5.0); ANION GAP 5 MMOL/L (8-16); CO2 29 mmol/L (21-32); GLUCOSE,RANDOM 112 mg/dL (74-106)
[2020-03-09 10:50] LABS: BILIRUBIN,DIRECT 0.1 mg/dL (0.0-0.2)
[2020-03-09 10:51] LABS: CREATININE 0.8 mg/dL (0.55-1.3); SGOT/AST 15 U/L (15-37); SGPT/ALT 15 U/L (13-61)
[2020-03-09 10:52] LABS: ACTIVATED PTT 16.6 SECONDS (25.2-36.5); BILIRUBIN,TOTAL 0.8 mg/dL (0.2-1)
[2020-03-09 10:53] LABS: ALK PHOS 82 U/L (45-117); MAGNESIUM 2.1 mg/dL (1.8-2.4); TOT PROT 6.6 g/dl (6.4-8.2)
[2020-03-09 10:55] LABS: LDH 226 U/L (84-246)
[2020-03-09 10:57] LABS: VENOUS BASE EXCESS 0.9 mmol/L (-2-2); VENOUS O2 SATURATION 26.6 % (70-80); VENOUS PCO2 47.2 mmHg (38-52); VENOUS PH 7.372 (7.310-7.410)
[2020-03-09 11:50] LABS: EPI CELLS 17 /uL (0-25.1); HYALINE CASTS 10 /uL (0-3.1); PH,URINE 8.5 (5.0-8.0); URINE APPEARANCE CLOUDY; URINE BACTERIA 830 /uL (0-1359); URINE BILIRUBIN NEGATIVE (NEGATIVE); URINE COLOR YELLOW; URINE GLUCOSE (UA) NEGATIVE (NEGATIVE); URINE KETONE NEGATIVE (NEGATIVE); URINE LEUK ESTERASE 3+ (NEGATIVE); URINE NITRITE NEGATIVE (NEGATIVE); URINE PROTEIN TRACE (NEGATIVE); URINE WBC 632 /uL (0-25.8)
[2020-03-09 12:05] LABS: URINE RBC 18.4 /uL (0-23.9)
[2020-03-09 12:20] LABS: YEAST NON SEEN (NEGATIVE)
[2020-03-09] MEDS ORDERED: metroNIDAZOLE 500 MG TABLET PO ONE (13:57)
[2020-03-09] MEDS ORDERED: CIPROFLOXACIN 500 MG TABLET (RESTRICTED TO ID) PO ONE ×3 (13:57→22:00)
[2020-03-09] MEDS ORDERED: metroNIDAZOLE 250 MG TABLET ONE ×2 (14:04→18:52)
[2020-03-09] MEDS ORDERED: FLUTICASONE PROP 0.05% 16 GM NASAL SPRAY NS PRN (14:38)
[2020-03-09] MEDS ORDERED: ALBUTEROL SO4 HFA INHALER IH PRN (14:38)
[2020-03-09] MEDS: LACTATED RINGERS SOLUTION 1,000 ML IV SCH (14:47)
[2020-03-09] MEDS: INSULIN SLIDING SCALE (NOVOLOG) 1 VIAL SQ SCH ×2 (17:21→22:27)
[2020-03-09] MEDS: ACETAMINOPHEN 325 MG TABLET (FP) PO PRN (17:21)
[2020-03-09] MEDS ORDERED: ACETAMINOPHEN 325 MG TABLET (FP) ONE (17:36)
[2020-03-09] MEDS: metroNIDAZOLE 500 MG TABLET PO SCH (18:54)
[2020-03-09] MEDS ORDERED: CIPROFLOXACIN 500 MG TABLET (RESTRICTED TO ID) PO SCH (20:00)
[2020-03-09] MEDS: ATORVASTATIN CA 20 MG TABLET (FP) PO SCH (21:44)
[2020-03-09] MEDS: SENNOSIDES 8.6MG TABLET (FP) PO SCH (21:45)
[2020-03-09] MEDS: FAMOTIDINE 20 MG TABLET PO SCH (21:45)
[2020-03-10] MEDS: metroNIDAZOLE 500 MG TABLET PO SCH ×4 (01:00→18:26)
[2020-03-10] MEDS: LACTATED RINGERS SOLUTION 1,000 ML IV SCH ×3 (01:02→18:25)
[2020-03-10] MEDS: INSULIN SLIDING SCALE (NOVOLOG) 1 VIAL SQ SCH ×4 (06:23→21:03)
[2020-03-10 08:51] LABS: BASO % 0.3 % (0-2.0); EOS % 0.7 % (0-4.5); HEMATOCRIT 36.3 % (32.4-45.2); HEMOGLOBIN 12.4 GM/dL (10.7-15.3); MCH 31.5 pg (25.7-33.7); MCHC 34.2 g/dl (32.0-36.0); MEAN CELL VOLUME 92.2 fl (80-96); MEAN PLT VOLUME 8.3 fl (7.5-11.1); MONO % 10.1 % (3.8-10.2); NEUT % 75.9 % (42.8-82.8); PLATELET COUNT 205 K/MM3 (134-434); RBC 3.94 M/mm3 (3.60-5.2); RDW 14.1 % (11.6-15.6); WHITE BLOOD COUNT 5.1 K/mm3 (4.0-10.0)
[2020-03-10 09:22] LABS: CREATININE 0.7 mg/dL (0.55-1.3); PHOSPHOROUS 2.1 mg/dL (2.5-4.9)
[2020-03-10 09:23] LABS: BILIRUBIN,TOTAL 0.5 mg/dL (0.2-1)
[2020-03-10 09:24] LABS: ALBUMIN 3.1 g/dl (3.4-5.0); BLOOD UREA NITROGEN 10.9 mg/dL (7-18); MAGNESIUM 1.8 mg/dL (1.8-2.4); TOT PROT 5.2 g/dl (6.4-8.2)
[2020-03-10] MEDS: ENOXAPARIN NA (PORCINE) 40 MG/0.4 ML DISP.SYRIN SQ SCH (11:07)
[2020-03-10] MEDS: SENNOSIDES 8.6MG TABLET (FP) PO SCH ×2 (11:08→21:03)
[2020-03-10] MEDS: CEFTRIAXONE 2 GM in DEXTROSE 5%-WATER 2 GM/100 ML BAG IVPB SCH (12:51)
[2020-03-10] MEDS ORDERED: REMDESIVIR 200 MG in SODIUM CHLORIDE 210 ML IVPB ONE (13:00)
[2020-03-10] MEDS: BUDESONIDE/FORMETEROL FUMARATE 160/4.5 mcg INHALER IH SCH ×2 (13:31→21:55)
[2020-03-10] MEDS: FAMOTIDINE 20 MG TABLET PO SCH (21:03)
[2020-03-10] MEDS: ATORVASTATIN CA 20 MG TABLET (FP) PO SCH (21:03)
[2020-03-11] MEDS: metroNIDAZOLE 500 MG TABLET PO SCH ×4 (00:55→17:41)
[2020-03-11] MEDS: INSULIN SLIDING SCALE (NOVOLOG) 1 VIAL SQ SCH ×4 (06:27→21:45)
[2020-03-11] MEDS: ENOXAPARIN NA (PORCINE) 40 MG/0.4 ML DISP.SYRIN SQ SCH (10:04)
[2020-03-11] MEDS: CEFTRIAXONE 2 GM in DEXTROSE 5%-WATER 2 GM/100 ML BAG IVPB SCH (10:04)
[2020-03-11] MEDS: SENNOSIDES 8.6MG TABLET (FP) PO SCH ×2 (10:05→21:45)
[2020-03-11] MEDS: BUDESONIDE/FORMETEROL FUMARATE 160/4.5 mcg INHALER IH SCH ×2 (10:05→21:45)
[2020-03-11] MEDS: REMDESIVIR 100 MG in SODIUM CHLORIDE 230 ML IVPB SCH (13:25)
[2020-03-11] MEDS: LACTATED RINGERS SOLUTION 1,000 ML IV SCH (16:10)
[2020-03-11 20:32] LABS: POTASSIUM 3.9 mmol/L (3.5-5.1)
[2020-03-11 20:34] LABS: CALCIUM 7.7 mg/dL (8.5-10.1)
[2020-03-11 20:35] LABS: ALBUMIN 2.7 g/dl (3.4-5.0); BLOOD UREA NITROGEN 7.8 mg/dL (7-18)
[2020-03-11 20:38] LABS: CREATININE 0.7 mg/dL (0.55-1.3)
[2020-03-11 20:39] LABS: BILIRUBIN,TOTAL 0.1 mg/dL (0.2-1)
[2020-03-11 20:40] LABS: TOT PROT 4.8 g/dl (6.4-8.2)
[2020-03-11] MEDS: FAMOTIDINE 20 MG TABLET PO SCH (21:45)
[2020-03-11] MEDS: ATORVASTATIN CA 20 MG TABLET (FP) PO SCH (21:45)
[2020-03-12] MEDS: metroNIDAZOLE 500 MG TABLET PO SCH ×4 (01:27→18:13)
[2020-03-12] MEDS: ACETAMINOPHEN 325 MG TABLET (FP) PO PRN (05:42)
[2020-03-12] MEDS: LACTATED RINGERS SOLUTION 1,000 ML IV SCH (05:43)
[2020-03-12] MEDS: INSULIN SLIDING SCALE (NOVOLOG) 1 VIAL SQ SCH ×4 (07:46→23:03)
[2020-03-12 08:56] LABS: BASO % 0.4 % (0-2.0); EOS % 1.5 % (0-4.5); HEMATOCRIT 34.6 % (32.4-45.2); HEMOGLOBIN 11.7 GM/dL (10.7-15.3); LYMPH % 28.6 % (8-40); MCH 31.1 pg (25.7-33.7); MCHC 33.9 g/dl (32.0-36.0); MEAN CELL VOLUME 91.7 fl (80-96); MEAN PLT VOLUME 8.4 fl (7.5-11.1); MONO % 10.9 % (3.8-10.2); NEUT % 58.6 % (42.8-82.8); PLATELET COUNT 182 K/MM3 (134-434); RBC 3.77 M/mm3 (3.60-5.2); RDW 13.8 % (11.6-15.6); WHITE BLOOD COUNT 4.1 K/mm3 (4.0-10.0)
[2020-03-12] MEDS: SENNOSIDES 8.6MG TABLET (FP) PO SCH ×2 (10:11→23:04)
[2020-03-12] MEDS: CEFTRIAXONE 2 GM in DEXTROSE 5%-WATER 2 GM/100 ML BAG IVPB SCH (10:11)
[2020-03-12] MEDS: BUDESONIDE/FORMETEROL FUMARATE 160/4.5 mcg INHALER IH SCH ×2 (10:11→23:04)
[2020-03-12] MEDS: ENOXAPARIN NA (PORCINE) 40 MG/0.4 ML DISP.SYRIN SQ SCH (10:11)
[2020-03-12] MEDS: DEXAMETHASONE SOD PHOSPHATE 4 MG/1 ML VIAL IVPUSH SCH (11:25)
[2020-03-12 12:16] LABS: MAGNESIUM 1.7 mg/dL (1.8-2.4)
[2020-03-12 12:19] LABS: PHOSPHOROUS 2.7 mg/dL (2.5-4.9)
[2020-03-12] MEDS: REMDESIVIR 100 MG in SODIUM CHLORIDE 230 ML IVPB SCH (13:15)
[2020-03-12] MEDS: SODIUM CHLORIDE NASAL SPRAY 44 ML BOTTLE NS PRN (14:30)
[2020-03-12] MEDS: ATORVASTATIN CA 20 MG TABLET (FP) PO SCH (23:03)
[2020-03-12] MEDS: FAMOTIDINE 20 MG TABLET PO SCH (23:04)
[2020-03-13] MEDS: metroNIDAZOLE 500 MG TABLET PO SCH ×4 (01:20→17:19)
[2020-03-13] MEDS: ACETAMINOPHEN 325 MG TABLET (FP) PO PRN ×2 (05:42→21:23)
[2020-03-13] MEDS: INSULIN SLIDING SCALE (NOVOLOG) 1 VIAL SQ SCH ×4 (06:01→21:18)
[2020-03-13] MEDS: ENOXAPARIN NA (PORCINE) 40 MG/0.4 ML DISP.SYRIN SQ SCH (09:52)
[2020-03-13] MEDS: DEXAMETHASONE SOD PHOSPHATE 4 MG/1 ML VIAL IVPUSH SCH (09:52)
[2020-03-13] MEDS: CEFTRIAXONE 2 GM in DEXTROSE 5%-WATER 2 GM/100 ML BAG IVPB SCH (09:53)
[2020-03-13] MEDS: BUDESONIDE/FORMETEROL FUMARATE 160/4.5 mcg INHALER IH SCH ×2 (09:54→21:18)
[2020-03-13] MEDS: SENNOSIDES 8.6MG TABLET (FP) PO SCH ×2 (09:54→21:18)
[2020-03-13] MEDS: SODIUM CHLORIDE NASAL SPRAY 44 ML BOTTLE NS PRN (10:31)
[2020-03-13 11:28] LABS: BASO % 0.2 % (0-2.0); EOS % 0.3 % (0-4.5); HEMATOCRIT 35.8 % (32.4-45.2); HEMOGLOBIN 12.3 GM/dL (10.7-15.3); LYMPH % 27.2 % (8-40); MCH 30.9 pg (25.7-33.7); MCHC 34.3 g/dl (32.0-36.0); MEAN PLT VOLUME 8.8 fl (7.5-11.1); MONO % 9.5 % (3.8-10.2); NEUT % 62.8 % (42.8-82.8); PLATELET COUNT 229 K/MM3 (134-434); RBC 3.97 M/mm3 (3.60-5.2); RDW 13.5 % (11.6-15.6); WHITE BLOOD COUNT 5.6 K/mm3 (4.0-10.0)
[2020-03-13 11:53] LABS: POTASSIUM 3.7 mmol/L (3.5-5.1)
[2020-03-13 12:20] LABS: CALCIUM 8.7 mg/dL (8.5-10.1)
[2020-03-13 12:22] LABS: ALBUMIN 3.1 g/dl (3.4-5.0); BLOOD UREA NITROGEN 14.4 mg/dL (7-18)
[2020-03-13 12:25] LABS: CREATININE 0.6 mg/dL (0.55-1.3)
[2020-03-13 12:26] LABS: BILIRUBIN,TOTAL 0.2 mg/dL (0.2-1)
[2020-03-13 12:27] LABS: TOT PROT 5.2 g/dl (6.4-8.2)
[2020-03-13] MEDS: REMDESIVIR 100 MG in SODIUM CHLORIDE 230 ML IVPB SCH (12:53)
[2020-03-13] MEDS: NAPH,MB-DB/K PH,MBDB POWDER PACKET PO SCH ×2 (14:56→21:18)
[2020-03-13] MEDS: ATORVASTATIN CA 20 MG TABLET (FP) PO SCH (21:17)
[2020-03-13] MEDS: FAMOTIDINE 20 MG TABLET PO SCH (21:18)
[2020-03-14] MEDS: metroNIDAZOLE 500 MG TABLET PO SCH ×5 (00:20→23:25)
[2020-03-14] MEDS: INSULIN SLIDING SCALE (NOVOLOG) 1 VIAL SQ SCH ×4 (06:08→20:59)
[2020-03-14 06:31] LABS: BASO % 0.4 % (0-2.0); EOS % 0.2 % (0-4.5); HEMATOCRIT 36.5 % (32.4-45.2); HEMOGLOBIN 12.3 GM/dL (10.7-15.3); LYMPH % 24.3 % (8-40); MCHC 33.8 g/dl (32.0-36.0); MEAN CELL VOLUME 91.6 fl (80-96); MEAN PLT VOLUME 9.1 fl (7.5-11.1); NEUT % 67.1 % (42.8-82.8); PLATELET COUNT 213 K/MM3 (134-434); RBC 3.98 M/mm3 (3.60-5.2); RDW 13.6 % (11.6-15.6); WHITE BLOOD COUNT 5.9 K/mm3 (4.0-10.0)
[2020-03-14 06:46] LABS: POTASSIUM 4.2 mmol/L (3.5-5.1)
[2020-03-14 06:47] LABS: BLOOD UREA NITROGEN 17.2 mg/dL (7-18)
[2020-03-14 06:48] LABS: MAGNESIUM 1.8 mg/dL (1.8-2.4)
[2020-03-14 06:51] LABS: CREATININE 0.5 mg/dL (0.55-1.3); PHOSPHOROUS 2.6 mg/dL (2.5-4.9)
[2020-03-14 06:53] LABS: BILIRUBIN,TOTAL 0.3 mg/dL (0.2-1); TOT PROT 5.1 g/dl (6.4-8.2)
[2020-03-14] MEDS ORDERED: DEXTROSE 5%-WATER 100 ML IVPB ONE (10:11)
[2020-03-14] MEDS: DEXAMETHASONE SOD PHOSPHATE 4 MG/1 ML VIAL IVPUSH SCH (10:39)
[2020-03-14] MEDS: CEFTRIAXONE 2 GM in DEXTROSE 5%-WATER 2 GM/100 ML BAG IVPB SCH (10:43)
[2020-03-14] MEDS: ENOXAPARIN NA (PORCINE) 40 MG/0.4 ML DISP.SYRIN SQ SCH (10:44)
[2020-03-14] MEDS: SENNOSIDES 8.6MG TABLET (FP) PO SCH ×2 (10:45→21:01)
[2020-03-14] MEDS: BUDESONIDE/FORMETEROL FUMARATE 160/4.5 mcg INHALER IH SCH ×2 (10:45→20:59)
[2020-03-14] MEDS: REMDESIVIR 100 MG in SODIUM CHLORIDE 230 ML IVPB SCH (18:14)
[2020-03-14] MEDS ORDERED: INSULIN (NOVOLOG) ASPART 100 UNITS/ML 10ML VIAL ONE (20:27)
[2020-03-14] MEDS: ATORVASTATIN CA 20 MG TABLET (FP) PO SCH (20:59)
[2020-03-14] MEDS: FAMOTIDINE 20 MG TABLET PO SCH (20:59)
[2020-03-15] MEDS: ACETAMINOPHEN 325 MG TABLET (FP) PO PRN (02:22)
[2020-03-15] MEDS: metroNIDAZOLE 500 MG TABLET PO SCH ×3 (05:38→17:36)
[2020-03-15] MEDS: INSULIN SLIDING SCALE (NOVOLOG) 1 VIAL SQ SCH ×5 (06:01→22:19)
[2020-03-15] MEDS ORDERED: INSULIN (NOVOLOG) ASPART 100 UNITS/ML 10ML VIAL ONE (06:06)
[2020-03-15 10:11] LABS: BASO % 0.5 % (0-2.0); EOS % 0.3 % (0-4.5); HEMATOCRIT 38.4 % (32.4-45.2); HEMOGLOBIN 12.7 GM/dL (10.7-15.3); LYMPH % 25.9 % (8-40); MCH 30.7 pg (25.7-33.7); MCHC 33.2 g/dl (32.0-36.0); MEAN CELL VOLUME 92.5 fl (80-96); MEAN PLT VOLUME 8.8 fl (7.5-11.1); MONO % 10.4 % (3.8-10.2); NEUT % 62.9 % (42.8-82.8); PLATELET COUNT 248 K/MM3 (134-434); RBC 4.14 M/mm3 (3.60-5.2); WHITE BLOOD COUNT 8.6 K/mm3 (4.0-10.0)
[2020-03-15 10:34] LABS: CALCIUM 8.5 mg/dL (8.5-10.1)
[2020-03-15 10:38] LABS: CREATININE 0.8 mg/dL (0.55-1.3)
[2020-03-15 10:40] LABS: BLOOD UREA NITROGEN 18.9 mg/dL (7-18)
[2020-03-15] MEDS ORDERED: PT OWN MED DRAWER 7, Y5N ONE (11:08)
[2020-03-15] MEDS: DEXAMETHASONE SOD PHOSPHATE 4 MG/1 ML VIAL IVPUSH SCH (11:14)
[2020-03-15] MEDS: SENNOSIDES 8.6MG TABLET (FP) PO SCH ×2 (11:15→22:21)
[2020-03-15] MEDS: BUDESONIDE/FORMETEROL FUMARATE 160/4.5 mcg INHALER IH SCH ×2 (11:16→22:21)
[2020-03-15] MEDS: ENOXAPARIN NA (PORCINE) 40 MG/0.4 ML DISP.SYRIN SQ SCH (12:07)
[2020-03-15] MEDS: CEFTRIAXONE 2 GM in DEXTROSE 5%-WATER 2 GM/100 ML BAG IVPB SCH (12:08)
[2020-03-15] MEDS: FAMOTIDINE 20 MG TABLET PO SCH (22:20)
[2020-03-15] MEDS: ATORVASTATIN CA 20 MG TABLET (FP) PO SCH (22:21)
[2020-03-16] MEDS ORDERED: PT OWN MED DRAWER 7, Y5N ONE ×2 (00:46→06:28)
[2020-03-16] MEDS: metroNIDAZOLE 500 MG TABLET PO SCH ×3 (00:51→11:00)
[2020-03-16] MEDS: INSULIN SLIDING SCALE (NOVOLOG) 1 VIAL SQ SCH ×4 (07:06→23:10)
[2020-03-16 08:17] LABS: HEMATOCRIT 36.9 % (32.4-45.2); HEMOGLOBIN 12.6 GM/dL (10.7-15.3); MCH 30.7 pg (25.7-33.7); MEAN CELL VOLUME 90.2 fl (80-96); MEAN PLT VOLUME 8.9 fl (7.5-11.1); PLATELET COUNT 259 K/MM3 (134-434); RDW 13.7 % (11.6-15.6); WHITE BLOOD COUNT 7.8 K/mm3 (4.0-10.0)
[2020-03-16 08:39] LABS: POTASSIUM 4.2 mmol/L (3.5-5.1)
[2020-03-16 08:40] LABS: CALCIUM 8.6 mg/dL (8.5-10.1)
[2020-03-16 08:41] LABS: BLOOD UREA NITROGEN 20.2 mg/dL (7-18); MAGNESIUM 2.2 mg/dL (1.8-2.4)
[2020-03-16 08:44] LABS: CREATININE 0.7 mg/dL (0.55-1.3); PHOSPHOROUS 2.7 mg/dL (2.5-4.9)
[2020-03-16] MEDS: DEXAMETHASONE SOD PHOSPHATE 4 MG/1 ML VIAL IVPUSH SCH (10:58)
[2020-03-16] MEDS: ENOXAPARIN NA (PORCINE) 40 MG/0.4 ML DISP.SYRIN SQ SCH (10:58)
[2020-03-16] MEDS: SENNOSIDES 8.6MG TABLET (FP) PO SCH ×2 (10:59→23:09)
[2020-03-16] MEDS: BUDESONIDE/FORMETEROL FUMARATE 160/4.5 mcg INHALER IH SCH ×2 (10:59→23:11)
[2020-03-16] MEDS: ACETAMINOPHEN 325 MG TABLET (FP) PO PRN (20:34)
[2020-03-16] MEDS ORDERED: ACETAMINOPHEN 1000 MG/100 ML VIAL (NON FORMULARY) IVPB ONE (22:13)
[2020-03-16] MEDS: ATORVASTATIN CA 20 MG TABLET (FP) PO SCH (23:08)
[2020-03-16] MEDS: FAMOTIDINE 20 MG TABLET PO SCH (23:09)
[2020-03-16 23:11] LABS: BASO % 0.4 % (0-2.0); HEMATOCRIT 38.6 % (32.4-45.2); HEMOGLOBIN 13.1 GM/dL (10.7-15.3); MCH 30.6 pg (25.7-33.7); MEAN CELL VOLUME 89.8 fl (80-96); MEAN PLT VOLUME 9.4 fl (7.5-11.1); MONO % 5.4 % (3.8-10.2); NEUT % 84.2 % (42.8-82.8); PLATELET COUNT 251 K/MM3 (134-434); RBC 4.29 M/mm3 (3.60-5.2); RDW 13.8 % (11.6-15.6); WHITE BLOOD COUNT 8.7 K/mm3 (4.0-10.0)
[2020-03-17] MEDS ORDERED: FAMOTIDINE 20 MG/50 ML IVPB 20 MG/50 ML MG IVPB ONE (00:11)
[2020-03-17] MEDS ORDERED: METOCLOPRAMIDE HCL INJECTION 10 MG/2 ML VIAL IVPUSH ONE (00:12)
[2020-03-17] MEDS: INSULIN SLIDING SCALE (NOVOLOG) 1 VIAL SQ SCH ×4 (06:00→21:00)
[2020-03-17] MEDS: ENOXAPARIN NA (PORCINE) 40 MG/0.4 ML DISP.SYRIN SQ SCH (10:24)
[2020-03-17] MEDS: SENNOSIDES 8.6MG TABLET (FP) PO SCH ×2 (10:24→20:59)
[2020-03-17] MEDS: BUDESONIDE/FORMETEROL FUMARATE 160/4.5 mcg INHALER IH SCH ×2 (10:24→21:00)
[2020-03-17] MEDS ORDERED: INSULIN (NOVOLOG) ASPART 100 UNITS/ML 10ML VIAL ONE (20:47)
[2020-03-17] MEDS: ATORVASTATIN CA 20 MG TABLET (FP) PO SCH (20:59)
[2020-03-17] MEDS: FAMOTIDINE 20 MG TABLET PO SCH (21:00)
[2020-03-18] MEDS: INSULIN SLIDING SCALE (NOVOLOG) 1 VIAL SQ SCH ×5 (06:03→21:47)
[2020-03-18] MEDS: SENNOSIDES 8.6MG TABLET (FP) PO SCH ×2 (10:16→21:37)
[2020-03-18] MEDS: ENOXAPARIN NA (PORCINE) 40 MG/0.4 ML DISP.SYRIN SQ SCH (10:16)
[2020-03-18] MEDS: BUDESONIDE/FORMETEROL FUMARATE 160/4.5 mcg INHALER IH SCH ×2 (10:19→21:37)
[2020-03-18] MEDS: ATORVASTATIN CA 20 MG TABLET (FP) PO SCH (21:37)
[2020-03-18] MEDS: FAMOTIDINE 20 MG TABLET PO SCH (21:37)
[2020-03-19] MEDS: INSULIN SLIDING SCALE (NOVOLOG) 1 VIAL SQ SCH ×2 (06:00→11:32)
[2020-03-19 07:41] LABS: BASO % 0.1 % (0-2.0); EOS % 1.2 % (0-4.5); HEMATOCRIT 38.2 % (32.4-45.2); HEMOGLOBIN 12.8 GM/dL (10.7-15.3); LYMPH % 17.5 % (8-40); MCH 30.4 pg (25.7-33.7); MCHC 33.4 g/dl (32.0-36.0); MEAN PLT VOLUME 9.1 fl (7.5-11.1); MONO % 8.9 % (3.8-10.2); NEUT % 72.3 % (42.8-82.8); PLATELET COUNT 249 K/MM3 (134-434); RBC 4.19 M/mm3 (3.60-5.2); RDW 13.9 % (11.6-15.6); WHITE BLOOD COUNT 11.7 K/mm3 (4.0-10.0)
[2020-03-19 07:58] LABS: BLOOD UREA NITROGEN 21.5 mg/dL (7-18); CALCIUM 8.4 mg/dL (8.5-10.1)
[2020-03-19 08:01] LABS: CREATININE 0.7 mg/dL (0.55-1.3)
[2020-03-19] MEDS: ENOXAPARIN NA (PORCINE) 40 MG/0.4 ML DISP.SYRIN SQ SCH (09:11)
[2020-03-19] MEDS: SENNOSIDES 8.6MG TABLET (FP) PO SCH (09:11)
[2020-03-19] MEDS: BUDESONIDE/FORMETEROL FUMARATE 160/4.5 mcg INHALER IH SCH (09:13)
[2020-03-19 11:56] LABS: ANISOCYTOSIS 0; HELMET CELLS 0; HOWELL-JOLLY BODIES 0; MACROCYTOSIS 0; OVALOCYTE 0; PLATELET ESTIMATE NORMAL; ROULEAU 0; SICKELED CELLS 0; TARGET CELLS 0; TEAR DROP CELLS 0; TOXIC GRANULATION 0
[2020-03-19 15:44] VITALS: BP 142/80; PULSE 61; TEMP 98.2
== END 2020-03-19 15:47 | disposition home or self-care (01) | DRG 177 ==
LOC: JER 08:40 → JERBED 13:56 → J5WEST-2 21:40 → J7W 03-14 01:28
PROVIDERS: ADMIT Internal Medicine
PROC: XW033E5 Introduction of Remdesivir Anti-infective into Peripheral Vein, Percutaneous Approach, New Technology Group 5 (ICD-10-PCS; principal; 2020-03-10)
DX: U07.1 COVID-19 (principal); J12.82 Pneumonia due to coronavirus disease 2019; J96.01 Acute respiratory failure with hypoxia; J44.1 Chronic obstructive pulmonary disease with (acute) exacerbation; K57.32 Diverticulitis of large intestine without perforation or abscess without bleeding; I25.10 Atherosclerotic heart disease of native coronary artery without angina pectoris; K57.90 Diverticulosis of intestine, part unspecified, without perforation or abscess without bleeding; F20.9 Schizophrenia, unspecified; N39.0 Urinary tract infection, site not specified; G20 Parkinson's disease; E78.5 Hyperlipidemia, unspecified; I12.9 Hypertensive chronic kidney disease with stage 1 through stage 4 chronic kidney disease, or unspecified chronic kidney disease; E11.22 Type 2 diabetes mellitus with diabetic chronic kidney disease; N18.30 Chronic kidney disease, stage 3 unspecified; F41.8 Other specified anxiety disorders; G40.909 Epilepsy, unspecified, not intractable, without status epilepticus; E03.9 Hypothyroidism, unspecified; M54.5 Low back pain; R53.83 Other fatigue; F31.9 Bipolar disorder, unspecified; R00.1 Bradycardia, unspecified; R50.9 Fever, unspecified
CPT/HCPCS: 36415; 71045-TC-FY; 74176-TC; 80048; 80053; 81003; 82248; 82550; 82728; 82803; 82962; 83605; 83615; 83690; 83735; 84100; 84484; 85025; 85027; 85379; 85610; 85730; 86140; 86769; 87040; 87077; 87086; 87804; 93005; 93010; 94761; 97116-GP; 97161-GP; 99284-25; C9399; C9803; J0131; U0003

== ENCOUNTER 2020-06-30 09:07 | Inpatient (IN) | payer OTHER ==
[2020-06-30 10:49] LABS: BASO % 0.5 % (0-2.0); EOS % 2.2 % (0-4.5); HEMOGLOBIN 12.9 GM/dL (10.7-15.3); MCH 31.9 pg (25.7-33.7); MCHC 33.8 g/dl (32.0-36.0); MEAN CELL VOLUME 94.3 fl (80-96); MEAN PLT VOLUME 8.9 fl (7.5-11.1); MONO % 6.8 % (3.8-10.2); NEUT % 73.5 % (42.8-82.8); PLATELET COUNT 183 K/MM3 (134-434); RBC 4.04 M/mm3 (3.60-5.2); RDW 13.4 % (11.6-15.6); WHITE BLOOD COUNT 8.8 K/mm3 (4.0-10.0)
[2020-06-30 11:00] LABS: INR 0.99 (0.83-1.09); PROTHROMBIN TIME (PATIENT) 12.2 SEC (9.7-13.0)
[2020-06-30 11:02] LABS: ACTIVATED PTT 29.5 SECONDS (25.2-36.5)
[2020-06-30 11:13] LABS: CHLORIDE 108 mmol/L (98-107); SODIUM 141 mmol/L (136-145)
[2020-06-30 11:15] LABS: ANION GAP 5 MMOL/L (8-16); BLOOD UREA NITROGEN 20.9 mg/dL (7-18); CALCIUM 8.7 mg/dL (8.5-10.1); CO2 27 mmol/L (21-32); GLUCOSE,RANDOM 138 mg/dL (74-106)
[2020-06-30 11:16] LABS: ALBUMIN 3.8 g/dl (3.4-5.0); MAGNESIUM 2.1 mg/dL (1.8-2.4)
[2020-06-30 11:18] LABS: CREATININE 0.8 mg/dL (0.55-1.3); SGOT/AST 6 U/L (15-37); SGPT/ALT 15 U/L (13-61)
[2020-06-30 11:19] LABS: PHOSPHOROUS 2.4 mg/dL (2.5-4.9)
[2020-06-30 11:20] LABS: BILIRUBIN,TOTAL 0.4 mg/dL (0.2-1)
[2020-06-30 11:21] LABS: ALK PHOS 78 U/L (45-117)
[2020-06-30 12:35] LABS: EPI CELLS 14 /uL (0-25.1); HYALINE CASTS 0 /uL (0-3.1); URINE APPEARANCE CLOUDY; URINE BACTERIA 1146 /uL (0-1359); URINE BILIRUBIN NEGATIVE (NEGATIVE); URINE COLOR YELLOW; URINE GLUCOSE (UA) NEGATIVE (NEGATIVE); URINE KETONE TRACE (NEGATIVE); URINE LEUK ESTERASE 3+ (NEGATIVE); URINE NITRITE NEGATIVE (NEGATIVE); URINE PROTEIN NEGATIVE (NEGATIVE); URINE RBC 14 /uL (0-23.9); URINE UROBILINOGEN 0.2 mg/dL (0.2-1.0); URINE WBC 1080 /uL (0-25.8)
[2020-06-30] MEDS ORDERED: ACETAMINOPHEN 325 MG TABLET (FP) PO ONE (16:01)
[2020-06-30] MEDS ORDERED: ACETAMINOPHEN 325 MG TABLET (FP) ONE ×2 (16:05→21:51)
[2020-06-30] MEDS ORDERED: ACETAMINOPHEN 325 MG TABLET (FP) PO PRN (17:41)
[2020-06-30] MEDS ORDERED: FLUTICASONE PROP 0.05% 16 GM NASAL SPRAY NS PRN (18:15)
[2020-06-30] MEDS ORDERED: ALBUTEROL SO4 HFA INHALER IH PRN (18:15)
[2020-06-30] MEDS ORDERED: SIMETHICONE 80 MG TAB.CHEW (FP) PO PRN (18:15)
[2020-06-30] MEDS ORDERED: CYCLOBENZAPRINE HCL 10 MG TABLET (FP) ONE (18:22)
[2020-06-30] MEDS: CYCLOBENZAPRINE HCL 10 MG TABLET (FP) PO SCH (18:24)
[2020-06-30] MEDS ORDERED: FAMOTIDINE 20 MG TABLET ONE (21:52)
[2020-06-30] MEDS ORDERED: SENNOSIDES 8.6MG TABLET (FP) PO ONE (21:52)
[2020-06-30] MEDS: SENNOSIDES 8.6MG TABLET (FP) PO SCH (21:55)
[2020-06-30] MEDS: ACETAMINOPHEN 325 MG TABLET (FP) PO SCH (21:55)
[2020-06-30] MEDS: FAMOTIDINE 20 MG TABLET PO SCH (21:55)
[2020-07-01] MEDS: CYCLOBENZAPRINE HCL 10 MG TABLET (FP) PO SCH ×3 (04:35→17:28)
[2020-07-01 07:17] LABS: HEMATOCRIT 38.1 % (32.4-45.2); MCH 32.3 pg (25.7-33.7); MCHC 34.1 g/dl (32.0-36.0); MEAN CELL VOLUME 94.8 fl (80-96); MEAN PLT VOLUME 8.8 fl (7.5-11.1); PLATELET COUNT 170 K/MM3 (134-434); RBC 4.02 M/mm3 (3.60-5.2); RDW 13.3 % (11.6-15.6); WHITE BLOOD COUNT 7.6 K/mm3 (4.0-10.0)
[2020-07-01 07:30] LABS: CALCIUM 8.7 mg/dL (8.5-10.1)
[2020-07-01 07:31] LABS: BLOOD UREA NITROGEN 18.3 mg/dL (7-18)
[2020-07-01 07:34] LABS: CREATININE 0.9 mg/dL (0.55-1.3)
[2020-07-01 08:03] VITALS: BMI 23.3
[2020-07-01] MEDS: ACETAMINOPHEN 325 MG TABLET (FP) PO SCH (10:00)
[2020-07-01] MEDS: ENOXAPARIN NA (PORCINE) 40 MG/0.4 ML DISP.SYRIN SQ SCH (11:02)
[2020-07-01] MEDS: SENNOSIDES 8.6MG TABLET (FP) PO SCH (11:02)
[2020-07-01] MEDS: BUDESONIDE/FORMETEROL FUMARATE 160/4.5 mcg INHALER IH SCH ×3 (11:04→21:39)
[2020-07-01] MEDS: POLYETHYLENE GLYCOL 3350 119 GM BTL PO SCH (11:04)
[2020-07-01] MEDS: ATORVASTATIN CA 20 MG TABLET (FP) PO SCH (11:04)
[2020-07-01] MEDS ORDERED: CYCLOBENZAPRINE HCL 10 MG TABLET (FP) PO SCH (17:56)
[2020-07-01] MEDS ORDERED: ONDANSETRON 4 MG/2 ML VIAL IVPUSH PRN (18:00)
[2020-07-01] MEDS ORDERED: LEVOTHYROXINE NA 25 MCG TABLET (FP) PO SCH (18:00)
[2020-07-01] MEDS: LEVOTHYROXINE NA 50 MCG TABLET (FP) PO SCH (19:05)
[2020-07-01] MEDS: FAMOTIDINE 20 MG TABLET PO SCH (21:02)
[2020-07-02] MEDS: ACETAMINOPHEN 325 MG TABLET (FP) PO PRN ×3 (01:11→21:48)
[2020-07-02] MEDS: LEVOTHYROXINE NA 50 MCG TABLET (FP) PO SCH (06:18)
[2020-07-02 07:36] LABS: HEMATOCRIT 38.1 % (32.4-45.2); HEMOGLOBIN 13.1 GM/dL (10.7-15.3); MCH 31.8 pg (25.7-33.7); MCHC 34.3 g/dl (32.0-36.0); MEAN CELL VOLUME 92.6 fl (80-96); MEAN PLT VOLUME 8.6 fl (7.5-11.1); PLATELET COUNT 179 K/MM3 (134-434); RBC 4.11 M/mm3 (3.60-5.2); WHITE BLOOD COUNT 7.6 K/mm3 (4.0-10.0)
[2020-07-02 07:53] LABS: ALBUMIN 3.6 g/dl (3.4-5.0); BLOOD UREA NITROGEN 18.8 mg/dL (7-18); CALCIUM 8.5 mg/dL (8.5-10.1)
[2020-07-02 07:57] LABS: BILIRUBIN,TOTAL 0.4 mg/dL (0.2-1); CREATININE 0.9 mg/dL (0.55-1.3); TOT PROT 5.8 g/dl (6.4-8.2)
[2020-07-02] MEDS ORDERED: PT OWN MED DRAWER 7, Y5N ONE (08:28)
[2020-07-02] MEDS: ASPIRIN 81 MG CHEWABLE TABLETS PO SCH (09:28)
[2020-07-02] MEDS: CHOLECALCIFEROL (VIT D3) 1,000 UNIT (25 MCG) TABLET PO SCH (09:28)
[2020-07-02] MEDS: BUDESONIDE/FORMETEROL FUMARATE 160/4.5 mcg INHALER IH SCH ×2 (09:28→21:42)
[2020-07-02] MEDS: ATORVASTATIN CA 20 MG TABLET (FP) PO SCH (09:28)
[2020-07-02] MEDS: amLODIPine BESYLATE 5 MG TABLET (FP) PO SCH (09:28)
[2020-07-02] MEDS: ENOXAPARIN NA (PORCINE) 40 MG/0.4 ML DISP.SYRIN SQ SCH (09:29)
[2020-07-02] MEDS: POLYETHYLENE GLYCOL 3350 119 GM BTL PO SCH (09:32)
[2020-07-02] MEDS ORDERED: CALCIUM 500MG/VIT-D 200 UNITS COMBO TABLET (FP) PO SCH (10:00)
[2020-07-02] MEDS: FAMOTIDINE 20 MG TABLET PO SCH (21:41)
[2020-07-03] MEDS: LEVOTHYROXINE NA 50 MCG TABLET (FP) PO SCH (06:05)
[2020-07-03 07:24] LABS: HEMATOCRIT 38.4 % (32.4-45.2); HEMOGLOBIN 13.3 GM/dL (10.7-15.3); MCH 32.3 pg (25.7-33.7); MCHC 34.8 g/dl (32.0-36.0); MEAN CELL VOLUME 92.7 fl (80-96); MEAN PLT VOLUME 8.4 fl (7.5-11.1); PLATELET COUNT 185 K/MM3 (134-434); RBC 4.14 M/mm3 (3.60-5.2); RDW 12.9 % (11.6-15.6); WHITE BLOOD COUNT 7.5 K/mm3 (4.0-10.0)
[2020-07-03 07:30] LABS: BLOOD UREA NITROGEN 15.6 mg/dL (7-18); CALCIUM 8.3 mg/dL (8.5-10.1)
[2020-07-03 07:33] LABS: CREATININE 0.8 mg/dL (0.55-1.3)
[2020-07-03] MEDS ORDERED: PT OWN MED DRAWER 7, Y5N ONE (09:22)
[2020-07-03] MEDS: CHOLECALCIFEROL (VIT D3) 1,000 UNIT (25 MCG) TABLET PO SCH (09:30)
[2020-07-03] MEDS: POLYETHYLENE GLYCOL 3350 119 GM BTL PO SCH (09:30)
[2020-07-03] MEDS: ATORVASTATIN CA 20 MG TABLET (FP) PO SCH (09:30)
[2020-07-03] MEDS: ASPIRIN 81 MG CHEWABLE TABLETS PO SCH (09:30)
[2020-07-03] MEDS: amLODIPine BESYLATE 5 MG TABLET (FP) PO SCH (09:30)
[2020-07-03] MEDS: ENOXAPARIN NA (PORCINE) 40 MG/0.4 ML DISP.SYRIN SQ SCH (09:30)
[2020-07-03] MEDS: BUDESONIDE/FORMETEROL FUMARATE 160/4.5 mcg INHALER IH SCH ×2 (09:30→21:35)
[2020-07-03] MEDS: ACETAMINOPHEN 325 MG TABLET (FP) PO PRN (20:43)
[2020-07-03] MEDS: FAMOTIDINE 20 MG TABLET PO SCH (21:35)
[2020-07-04] MEDS: LEVOTHYROXINE NA 50 MCG TABLET (FP) PO SCH (06:39)
[2020-07-04] MEDS: ACETAMINOPHEN 325 MG TABLET (FP) PO PRN (06:39)
[2020-07-04] MEDS: ENOXAPARIN NA (PORCINE) 40 MG/0.4 ML DISP.SYRIN SQ SCH ×2 (08:45→09:34)
[2020-07-04] MEDS: CHOLECALCIFEROL (VIT D3) 1,000 UNIT (25 MCG) TABLET PO SCH ×2 (08:45→09:35)
[2020-07-04] MEDS: ASPIRIN 81 MG CHEWABLE TABLETS PO SCH ×2 (08:45→09:34)
[2020-07-04] MEDS: amLODIPine BESYLATE 5 MG TABLET (FP) PO SCH ×2 (08:46→09:35)
[2020-07-04] MEDS: ATORVASTATIN CA 20 MG TABLET (FP) PO SCH ×2 (08:46→09:34)
[2020-07-04] MEDS: BUDESONIDE/FORMETEROL FUMARATE 160/4.5 mcg INHALER IH SCH ×2 (08:47→09:35)
[2020-07-04] MEDS: POLYETHYLENE GLYCOL 3350 119 GM BTL PO SCH ×2 (08:48→09:35)
[2020-07-04 10:18] VITALS: BP 142/79; PULSE 73; TEMP 98.5
== END 2020-07-04 10:36 | DRG 563 ==
LOC: JER 09:07 → UNDOADMIN 15:17 → JERBED 15:17 → J4W 22:53
PROVIDERS: ADMIT Internal Medicine; ATTEND Internal Medicine
DX: S82.091A Other fracture of right patella, initial encounter for closed fracture (principal); N39.0 Urinary tract infection, site not specified; I10 Essential (primary) hypertension; E78.5 Hyperlipidemia, unspecified; J44.9 Chronic obstructive pulmonary disease, unspecified; E03.9 Hypothyroidism, unspecified; G20 Parkinson's disease; K21.9 Gastro-esophageal reflux disease without esophagitis; D64.9 Anemia, unspecified; J45.909 Unspecified asthma, uncomplicated; N18.30 Chronic kidney disease, stage 3 unspecified; W19.XXXA Unspecified fall, initial encounter; Y93.9 Activity, unspecified; Y92.89 Other specified places as the place of occurrence of the external cause; Y99.9 Unspecified external cause status; I25.10 Atherosclerotic heart disease of native coronary artery without angina pectoris
CPT/HCPCS: 36415; 70450-TC; 71045-TC-FY; 71260-TC; 72125-TC; 72128-TC; 72131-TC; 72170-TC-FY; 73564-TC-RT-FY; 74177-TC; 80048; 80053; 81003; 82550; 83735; 84100; 84443; 84484; 85025; 85027; 85610; 85730; 87086; 87186; 93005; 93010; 93306-TC; 97116-GP; 97163-GP; 99285-25; C9803; Q9967; U0003; U0005